=== PATIENT | female | born 1945 | race Caucasian/White ===

== ENCOUNTER 2021-08-15 10:56 | Outpatient (REF) | payer MEDICARE, MEDICAID, SELFPAY ==
--- NOTE | ~2021-08-15 | US_ITS ---
EXAMINATION: US PELVIS CLINICAL INFORMATION: Leiomyoma of uterus COMPARISON: Previous pelvic ultrasound June 2010 TECHNIQUE: Ultrasound of the pelvis is performed using both transabdominal and transvaginal transducers along with Doppler. Transvaginal imaging is performed due to inadequate visualization transabdominally. FINDINGS: The uterus is anteverted and measures 9.4 x 4.3 x 5.5 cm in dimension. There is a 2.2 x 2.1 x 2.2 cm hypoechoic area in the posterior lower uterine segment questionable for a fibroid. The previously identified 1.8 x 1.5 x 1.6 cm lesion in the anterior uterine body on June 2010 exam is not appreciated. The endometrium is abnormally thickened for a postmenopausal patient measuring 1.7 cm. Endometrium appears heterogeneous with multiple small cystic areas. This is similar appearing to June 2010 exam. There are nabothian cysts in the cervix. The ovaries are not seen. There is no fluid in the pelvis. US/US pelvic and transvaginal IMPRESSION: Heterogeneous abnormally thickened endometrium measuring 1.7 cm with multiple small cystic areas. Tissue sampling recommended. 2.2 cm hypoechoic area in the posterior lower uterine segment, question representing a fibroid. The previously identified 1.8 x 1.5 x 1.6 cm fibroid in the anterior body of the uterus on June 2010 exam is not appreciated.
== END 2021-08-15 10:57 | disposition home or self-care (01) ==
LOC: HO.US 10:56
PROVIDERS: Visit Provider Student in an Organized Health Care Education/Training Program
DX: D25.1 Intramural leiomyoma of uterus (principal)
CPT/HCPCS: 76830; 76856

== ENCOUNTER 2021-08-25 13:16 | Outpatient (REF) | payer OTHER, SELFPAY ==
--- NOTE | ~2021-08-25 | MM_ITS ---
EXAMINATION: MM SCREENING DIGITAL BREAST TOMOSYNTHESIS, BILATERAL CLINICAL INFORMATION: Screening. Asymptomatic. The lifetime risk of breast cancer based on the Tyrer-Cuzick Model is 2.3%. COMPARISON: Mammography: 03/17/2015 and studies dating back to 09/28/2009. TECHNIQUE: Digital breast tomosynthesis is performed in both the craniocaudal and mediolateral oblique views along with computer-aided detection (CAD). Synthesized 2D images are generated from the tomosynthesis. Additional right exaggerated craniocaudal view performed. FINDINGS: There are scattered areas of fibroglandular density (ACR BI-RADS breast composition Category b). There is a stable parenchymal pattern of the left breast with no new abnormal dominant mass or suspicious grouping of microcalcifications. Within the left breast on mediolateral oblique projection approximately 12 cm from the nipple there is a region of architectural distortion and asymmetric density. The exaggerated craniocaudal view of the right breast does not demonstrate this to be present however I would like to ensure that any possible mass had not been displaced by compression and I recommend call back for supplementary films about the deep superior aspect of the right breast. Ultrasound could also be considered at the time of further study. MM/MM tomosynthesis screening BI IMPRESSION: Question possible asymmetric density with distortion deep superior aspect of the right breast. ASSESSMENT: BI-RADS 0: Incomplete - Need Additional Imaging Evaluation RECOMMENDATION: 1. Additional views of the right breast. 2. Targeted ultrasound if warranted after review of the additional views. 3. Radiology department staff will contact the patient for additional imaging.
--- NOTE | ~2021-08-25 | MM_ITS ---
EXAMINATION: BONE DENSITOMETRY CLINICAL INDICATION: Menopause. COMPARISON: Baseline BD dated 10/22/2015. TECHNIQUE: Using a alaTest DXA System (software version: 13.1) manufactured by [employer], dual-energy x-ray absorptiometry was performed of the lumbar spine and left hip. The images are of good technical quality. Summary results are attached. FINDINGS: AP SPINE L1-L2 (excluding L3 and L4): The data of L1-L4 has been changed to exclude the L3 and L4 vertebral bodies, because degenerative sclerosis at these levels may cause overestimation of lumbar spine density. Current: BMD 1.096 g/cm2, Z-score 0.1, T-score -0.6, normal, 2.0% increase from baseline (<5% change is not significant). Baseline: BMD 1.075 g/cm2. LEFT FEMUR, NECK: Current: BMD 0.658 g/cm2, Z-score -1.5, T-score -2.7, osteoporosis. Baseline: BMD 0.776 g/cm2. LEFT FEMUR, TOTAL: Current: BMD 0.823 g/cm2, Z-score -0.5, T-score -1.5, osteopenia, 7.2% decrease from baseline (<5% change is not significant). Baseline: BMD 0.887 g/cm2. IDENTIFIED RISK FACTORS: Menopause, low calcium intake. HISTORY OF FRACTURE: None listed. MEDICATIONS: Vitamin D. MM/XR DEXA axial skeleton IMPRESSION: 1. DIAGNOSIS: Osteoporosis based on the lowest T-score value of -2.7 in the femoral neck applying World Health Organization criteria. 2. 10-YEAR FRACTURE RISK PREDICTION, FRAX: Major osteoporotic fracture (clinical spine, forearm, hip or shoulder) 16.8%. Hip fracture 5.6%. 3. Treatment Recommendations: NOF guidelines recommend consideration for treatment in postmenopausal women and men age 50 and older presenting with the following: -A hip or vertebral (clinical or morphometric) fracture. -T-score less than or equal to -2.5 at the femoral neck or spine after appropriate evaluation to exclude secondary causes. -Low bone mass at the hip or spine and a 10-year fracture probability by FRAX of greater than or equal to 3% for hip fracture or greater than or equal to 20% for major osteoporotic fracture based on the [place] adapted WHO algorithm. 4. Other Recommendations: All treatment decisions require clinical judgment and consideration of individual patient factors, including patient preferences, comorbidities, previous drug use, risk factors not captured in the FRAX model (e.g. frailty, falls, vitamin D deficiency, increased bone turnover, interval significant decline in bone density) and possible under or overestimation of fracture risk by FRAX. Additional medical evaluation for secondary cause of low bone mineral density may be appropriate. FUTURE SCAN RECOMMENDATION: People with diagnosed cases of osteoporosis or at high risk for fracture should have regular bone mineral density tests. For patients eligible for Medicare, routine testing is allowed once every 2 years. The testing frequency can be increased to one year for patients who have rapidly progressing disease, those who are receiving or discontinuing medical therapy to restore bone mass, or have additional risk factors.
== END 2021-08-25 13:17 | disposition home or self-care (01) ==
LOC: HO.MAMMO 13:16
PROVIDERS: Visit Provider Student in an Organized Health Care Education/Training Program
DX: Z12.31 Encounter for screening mammogram for malignant neoplasm of breast (principal); Z13.820 Encounter for screening for osteoporosis; M84.478A Pathological fracture, left toe(s), initial encounter for fracture; Z78.0 Asymptomatic menopausal state
CPT/HCPCS: 77063; 77067; 77080

== ENCOUNTER 2021-09-06 14:03 | Outpatient (REF) | payer OTHER, SELFPAY | END 2021-09-06 14:04 | disposition home or self-care (01) | LOC: HO.LAB 14:03 | PROVIDERS: PCP Student in an Organized Health Care Education/Training Program; Visit Provider Obstetrics & Gynecology | DX: R93.5 Abnormal findings on diagnostic imaging of other abdominal regions, including retroperitoneum (principal); D21.9 Benign neoplasm of connective and other soft tissue, unspecified | CPT/HCPCS: 58100; 88305; 99202 ==

== ENCOUNTER 2021-09-09 13:25 | Outpatient (REF) | payer OTHER, SELFPAY ==
--- NOTE | ~2021-09-09 | MM_ITS ---
EXAMINATION: MM DIAGNOSTIC DIGITAL BREAST TOMOSYNTHESIS, RIGHT US DIAGNOSTIC ULTRASOUND BREAST, RIGHT CLINICAL INFORMATION: Question of architectural changes posterior upper right breast on MLO view. COMPARISON: Mammography: 08/25/2021, 03/17/2015 TECHNIQUE: Digital breast tomosynthesis is performed. 2D images are generated from the tomosynthesis. The following views are obtained: Spot MLO, exaggerated CC x2. Ultrasound right breast is targeted to the posterior upper outer breast. Grayscale imaging and color Doppler are performed without and with harmonics. FINDINGS: There are scattered areas of fibroglandular density (ACR BI-RADS breast composition Category b). The additional views demonstrate no persistent asymmetric density and no architectural abnormality. There are 2 small axillary tail nodes similar to remote prior exam 2014. The finding at screening is not present and believed to have represented incomplete compression. Ultrasound demonstrates no cystic or solid mass or architectural abnormality. No focal duct ectasia. Results are discussed with the patient at time of visit. MM/MM tomosynthesis added views R IMPRESSION: -No mammographic evidence of malignancy. -Additional views show no persistent asymmetric density or architectural abnormality. -Unremarkable targeted right breast ultrasound. ASSESSMENT: BI-RADS 1: Negative RECOMMENDATION: Routine annual mammography screening. This patient's information was entered into a reminder system with a target due date for their next mammogram.
== END 2021-09-09 13:26 | disposition home or self-care (01) ==
LOC: HO.MAMMO 13:25
PROVIDERS: PCP Student in an Organized Health Care Education/Training Program; Visit Provider Student in an Organized Health Care Education/Training Program
DX: R92.2 Inconclusive mammogram (principal)
CPT/HCPCS: 76642; 77061; 77065

== ENCOUNTER 2022-02-06 13:51 | Outpatient (REF) | payer OTHER, SELFPAY ==
--- NOTE | ~2022-02-06 | US_ITS ---
EXAMINATION: US PELVIS CLINICAL INFORMATION: Benign neoplasm abdominal endometrium. COMPARISON: Ultrasound pelvis 08/15/2021. TECHNIQUE: Ultrasound of the pelvis is performed using both transabdominal and transvaginal transducers along with Doppler. Transvaginal imaging is performed due to inadequate visualization transabdominally. FINDINGS: UTERUS: The uterus is anteverted, anteflexed and measures 7.8 x 3.8 x 4.5 cm. The double wall endometrial thickness is 2.3 cm and has cystic areas. It has increased in size and very suspicious for underlying endometrial abnormality. The uterus is smooth in contour and has normal myometrial echogenicity. There is a hyperechoic area in the posterior lower uterine segment measuring 1.9 x 1.5 x 1.6 cm. Previously it measured 2.2 x 2.1 x 2.2 cm. Question submucosal fibroid or endocervical polyp. There are several nabothian cysts seen in the cervix. ADNEXA: Both ovaries are not visualized. There is no free fluid in cul-de-sac. US/US pelvic and transvaginal IMPRESSION: 1. Thickened endometrium measuring 2.3 cm with cystic areas. This is suspicious for endometrial abnormality. Recommend HABILITATIVE INTERVENTIONIST consultation and tissue sampling. 2. Hyperechoic lesion in the posterior lower uterine segment measuring 1.9 cm, question submucosal fibroid or endocervical polyp. 3. Several nabothian cysts in the cervix. 4. The ovaries are not seen. 5. There is no free fluid in the cul-de-sac.
== END 2022-02-06 13:52 | disposition home or self-care (01) ==
LOC: HO.US 13:51
PROVIDERS: Visit Provider Obstetrics & Gynecology
DX: D21.9 Benign neoplasm of connective and other soft tissue, unspecified (principal)
CPT/HCPCS: 76830; 76856

== ENCOUNTER → 2022-02-14 13:28 | Outpatient (BNVA) | payer OTHER, SELFPAY | PROVIDERS: PCP Student in an Organized Health Care Education/Training Program; Visit Provider Obstetrics & Gynecology | DX: D21.9 Benign neoplasm of connective and other soft tissue, unspecified (principal) | CPT/HCPCS: 99212 ==

== ENCOUNTER → 2022-05-01 14:37 | Outpatient (BNVA) | payer OTHER, SELFPAY | PROVIDERS: PCP Student in an Organized Health Care Education/Training Program; Visit Provider Nurse Practitioner Family | DX: R06.02 Shortness of breath (principal); Z80.0 Family history of malignant neoplasm of digestive organs; Z12.11 Encounter for screening for malignant neoplasm of colon | CPT/HCPCS: Q3014 ==

== ENCOUNTER 2022-06-27 14:16 | Outpatient (REF) | payer OTHER, SELFPAY ==
--- NOTE | ~2022-06-27 | XR_ITS ---
EXAMINATION: XR CHEST CLINICAL INFORMATION: Obstructive sleep apnea. COMPARISON: None. TECHNIQUE: 2 views of the chest were obtained. FINDINGS: There is no evidence of acute parenchymal disease, pneumothorax, or pleural effusion. Heart normal size. No evidence of pulmonary edema. There is unfolding of the thoracic aorta. There is mild elevation at the anterior aspect of the right hemidiaphragm. XR/XR chest 2V IMPRESSION: No acute disease.
== END 2022-06-27 14:17 | disposition home or self-care (01) ==
LOC: HO.XRAY 14:16
PROVIDERS: PCP Student in an Organized Health Care Education/Training Program; Visit Provider Internal Medicine
DX: E66.9 Obesity, unspecified (principal); G47.33 Obstructive sleep apnea (adult) (pediatric); R06.09 Other forms of dyspnea; R06.83 Snoring; E11.9 Type 2 diabetes mellitus without complications; E78.5 Hyperlipidemia, unspecified; R40.0 Somnolence; Z79.899 Other long term (current) drug therapy; Z79.4 Long term (current) use of insulin
CPT/HCPCS: 71046; 99202

== ENCOUNTER 2022-06-27 15:24 | Outpatient (REF) | payer OTHER, SELFPAY | END 2022-06-27 15:25 | disposition home or self-care (01) | LOC: HO.RESP 15:24 | PROVIDERS: Visit Provider Internal Medicine | DX: Z13.89 Encounter for screening for other disorder (principal) ==

== ENCOUNTER → 2022-07-11 14:51 | Outpatient (REF) | payer OTHER, SELFPAY ==
--- NOTE | 2022-07-11 16:05 | PFT_ITS ---
INDICATION: Dyspnea. SPIROMETRY: FEV1 to FVC of 88% with an FEV1 of 1.82 L, which is 100% predicted and FVC of 2.08 L, which is 85% predicted. No significant response to bronchodilator is noted, although there is trend of the FEV1 by 11%. Maximum voluntary ventilation is 81% predicted. LUNG VOLUMES: Total lung capacity 67% predicted with an expiratory reserve volume of 34% predicted. DIFFUSION CAPACITY: DLCO 63% predicted, it does correct to 97% when corrected for the alveolar volume. COMPARISONS: None. INTERPRETATION: No obstructive ventilatory defects. There is a trend response to bronchodilators noted. Low normal maximum voluntary ventilation likely secondary to deconditioning. Lung volumes do demonstrate a restrictive ventilatory defect consistent with mild to moderate restrictive lung disease. In part, this could be secondary to an elevated BMI, although interstitial lung conditions and/or neuromuscular conditions cannot be ruled out. The patient does have a mild diffusion impairment. It does correct to normal when corrected for the alveolar volume. Clinical correlation warranted. Owen Mina MD MR/MODL / [id number]
== END ==
LOC: HO.SL 14:51
PROVIDERS: PCP Student in an Organized Health Care Education/Training Program; Visit Provider Internal Medicine
DX: G47.33 Obstructive sleep apnea (adult) (pediatric) (principal); R06.09 Other forms of dyspnea; E66.9 Obesity, unspecified; R06.83 Snoring; R40.0 Somnolence
CPT/HCPCS: 94060; 94727; 94729

== ENCOUNTER → 2022-07-17 12:46 | Outpatient (BNVA) | payer OTHER, SELFPAY | PROVIDERS: PCP Student in an Organized Health Care Education/Training Program; Referring Provider Student in an Organized Health Care Education/Training Program; Visit Provider Internal Medicine Cardiovascular Disease | DX: Z01.810 Encounter for preprocedural cardiovascular examination (principal); R06.09 Other forms of dyspnea | CPT/HCPCS: 93005; 99202 ==

== ENCOUNTER → 2022-08-15 14:42 | Outpatient (BNVA) | payer OTHER, SELFPAY | PROVIDERS: PCP Student in an Organized Health Care Education/Training Program; Visit Provider Internal Medicine | DX: G47.33 Obstructive sleep apnea (adult) (pediatric) (principal); R06.09 Other forms of dyspnea; R06.83 Snoring; R40.0 Somnolence; J98.4 Other disorders of lung; E66.9 Obesity, unspecified | CPT/HCPCS: 99212 ==

== ENCOUNTER → 2022-08-22 14:46 | Outpatient (REF) | payer OTHER, SELFPAY | LOC: HO.SL 14:46 | PROVIDERS: PCP Student in an Organized Health Care Education/Training Program; Visit Provider Internal Medicine | DX: Z13.89 Encounter for screening for other disorder (principal) ==

== ENCOUNTER → 2022-09-21 13:54 | Outpatient (REF) | payer OTHER, SELFPAY | LOC: HO.SL 13:54 | PROVIDERS: PCP Student in an Organized Health Care Education/Training Program; Visit Provider Internal Medicine | DX: Z13.89 Encounter for screening for other disorder (principal) ==

== ENCOUNTER → 2022-10-31 09:03 | Outpatient (REF) | payer OTHER, SELFPAY ==
--- NOTE | ~2022-10-31 | NM_ITS ---
Lexiscan Myocardial perfusion study Indication: Shortness of breath, preoperative evaluation, assess for ischemia Technique: The patient was brought in for a Lexiscan perfusion study on 10/31/2022 and was injected 0.4 mg of Lexiscan intravenously. Within a minute of this injection 30 mCi of sestamibi was given intravenously. Images were obtained using the SPECT gamma camera interlaced with the gating device. Images were obtained in supine position. Resting perfusion study was performed on 11/01/2022. Patient was administered 30 mCi of sestamibi intravenously at rest. Images were then obtained in supine position. Images were processed with the software and compared side to side in short axis, horizontal long axis and vertical long axis views. Total DLP 116mGy-cm. Findings: Raw acquisition reviewed. The stress perfusion study showed no significant perfusion defects. Both uncorrected as well as CT attenuation corrected images were reviewed. The gated study shows diminished LV systolic function with calculated LVEF of 48%. However, visually LVEF seems much higher LV cavity is normal in size. The gated study shows normal wall thickening and contraction of segments. Resting study shows no significant perfusion abnormality. Gating at rest reveals normal wall motion with ejection fraction at 33%. Visually, appears higher. The findings are consistent with no clear evidence of any ischemia or infarction. NM/NM cardiolite stress test Impression: 1. Myocardial perfusion imaging study shows normal myocardial perfusion. 2. Gated LVEF is 48% during stress and 33% during rest but visually appears normal. Correlate with echocardiogram. 3. Transient ischemic dilatation not present. EKG component of the test reported separately.
--- NOTE | 2022-10-31 09:07 | CA_ITS ---
Acquisition Time: 2022-10-31 10:12:11 Total Exercise Time: 00:02:00 Test Indications: Dyspnea Medications: SEE H Protocol: LEXISCAN Max HR: 083 BPM 58% of Pred: 143 BPM Max BP: 126/076 mmHG Max Work Load: 1.0 METS Pharmacoloigcal stress test with Lexiscan injection while sitting and kicking her legs, without anignal symptoms, without arrhythmias, with normotensive response to injection, with non-diagnostic EKGs. Nuclear images pending. Test reviewed with Dr. Anne. Referred By: Vijaya Perez Overread By: RIOS ANNE
--- NOTE | 2022-10-31 09:07 | CA_ITS ---
Transthoracic Echocardiogram Patient (Last, First, Middle): Yuliet Underwood, Gender: Female Date of : 1945 Age: 77 Procedure Date: 10/31/2022 Procedure Type: Transthoracic Echocardiogram Location: OP Height: 157.48 cm Weight: 92.99 kg BSA: 1.93 m2 Heart Rate: bpm BP: 118 / 70 mmHg Configuration Management Manager: TO Referring MD: Vijaya Perez NP-Alejandro Bullet Maker: Milan Hoffmann MD Symptoms: R06.09 - Other forms of dyspnea Study Quality: Fair ECG Rhythm: Sinus Conclusions: - 1. Normal LV ejection fraction 65-70% with grade 1 diastolic dysfunction 2. Normal cardiac valvular Doppler 3. No gross pericardial effusion Findings Left Ventricle Normal left ventricular size, thickness, and systolic function. The visually estimated ejection fraction is between 65-70%. Regional wall motion abnormalities can not be excluded due to suboptimal endocardial definition. Spectral Doppler is indicative of an impaired relaxation filling pattern. E/E prime ratio is <8, consistent with normal filling pressures. Evidence suggests grade I (mild) diastolic dysfunction. There is moderate septal asymmetric hypertrophy. Right Ventricle Normal right ventricular cavity size and systolic function. Atria The left atrium is normal in size. Interatrial shunt cannot be excluded. The right atrium is normal in size. Aortic Valve The aortic valve structure and function is likely normal. There is no aortic valve stenosis. There is no aortic valve regurgitation. Mitral Valve There is mild anterior and posterior mitral leaflet thickening. There is mild mitral annular calcification. There is trace mitral valve regurgitation. There is no mitral valve stenosis. Tricuspid Valve Likely normal tricuspid valve structure and function. There is trace tricuspid valve regurgitation. Tricuspid regurgitation envelope is inadequate for calculation of right ventricular systolic pressure. Normal right atrial pressure. Great Vessels All visible segments of the aorta are normal in size. The pulmonary artery was not well visualized. Venous The inferior vena cava is normal in size and collapses greater than 50% with inspiration. Pericardium/Pleural There is no evidence of pericardial effusion. Prior Study Comparison No prior study available for comparison. Measurements 2D Linear Measurements IVSd: 1.57 0.6-0.9/0.6-1.0 cm LVIDd: 3.42 3.9-5.3/4.2-5.9 cm LVIDd Index: 1.77 2.4-3.2/2.2-3.1 cm/m2 LVIDs: 2.31 2.0-3.6 cm LVPWd: 0.91 0.7-1.1 cm LA Diam: 3.50 2.7-3.8/3.0-4.0 cm LAIDs Index: 1.81 1.5-2.3 cm/m2 LV Mass: 171.99 67-162/88-224 g LV Mass Index: 89.12 43-95/49-115 g/m2 LVOT Diam: 2.00 3.0+(-)1.3 cm 2D Systolic Function EF 4C: 64.60 >55% EF 2C: 69.30 >55% EF BiP: 66.70 >55% Mitral Valve MV VTI: 0.29 MV Pk Karel: 1.21 MV Mn Karel: 0.60 MV Pk Grad: 6.00 MV Mn Grad: 2.00 MV Pk E: 0.52 MV PK A: 1.09 MV Decel Time: 354.00 E/A: 0.50 E'Lateral: 4.35 E'Medial: 5.22 E/E' Med: 10.00 E/E' Lat: 12.00 PHT: 104.00 MVA PHT: 2.12 MVA Continuity: 2.13 Decel [place]: 1.48 Aortic Valve AoV Pk Karel: 1.23 AoV Mn Karel: 0.88 AoV VTI: 0.26 AoV Pk Grad: 6.00 Aov Mn Grad: 3.00 SOFIE Cont.VTI: 2.38 LVOT LVOT Pk Karel: 0.73 LVOT Mn Karel: 0.48 LVOT VTI: 0.20 LVOT Pk Grad: 2.00 LVOT Mn Grad: 1.00 LVOT Diam: 2.00 LVOT Area: 3.14 Diastolic Function MV Pk E: 0.52 MV Pk A: 1.09 E/A: 0.50 E'Medial: 5.22 E/E' Med: 10.00 E' Laterial: 4.35 E/E' Lat: 12.00 Right Ventricle TAPSE (mm): 18.60 TVS' Karel: 9.41 Tricuspid Valve RA Press: 3.00 Great Vessels Aorta Sinus of Valsalva: 3.14 2.0-3.5 cm Ao Asc: 3.20 2.1-3.4 cm Updated in Other Vendor System with Status of Final Milan Hoffmann MD electronically signed on 11/01/2022 10:40:29 AM with status of Final
== END ==
LOC: HO.CARD 09:03
PROVIDERS: PCP Student in an Organized Health Care Education/Training Program; Visit Provider Nurse Practitioner Family
DX: R06.09 Other forms of dyspnea (principal); E66.9 Obesity, unspecified
CPT/HCPCS: 78452; 93017; 93306; A9500; J0280; J2785

== ENCOUNTER → 2022-10-31 09:07 | Outpatient (BNV) | payer OTHER, SELFPAY | PROVIDERS: PCP Student in an Organized Health Care Education/Training Program; Visit Provider Internal Medicine | DX: R06.00 Dyspnea, unspecified (principal) | CPT/HCPCS: 78452; 93016; 93018; 93306 ==

== ENCOUNTER 2022-11-13 14:09 | Outpatient (AMB) | payer OTHER, SELFPAY ==
--- NOTE | 2022-11-13 14:21 | MHC.OFFVIS ---
Intake Vital Signs 11/13/22 14:22 Height 5 ft 1 in Weight 201 lb 15.095 oz BMI 38.2 BP 133/64 Blood Pressure Location Lt brachial Position Sitting Pulse 80 Intake Visit Reasons: S/P [place]; Dr Ceron Intake Note: Yuliet presents in office as a est.patient for a post-op for colo pt's colo got cancelled PT CC:pt reports having no concerns r/s pt denies any other GI Issues Greenhouse Grower Required: No Accompanied by: Self / Same As Patient Allergies Spjqdvg-XMI-GxX Reductase Inhibitor [[id number] REDUCTASE INHIBITOR] Allergy (Severe, Verified 11/13/22 14:23) SEVERE DIARRHEA HPI S/P [place]; Dr Ceron HPI Details LAST VISIT Screening for colon cancer Patient denies any GI, cardiac or respiratory symptoms.? Denies any issues with anesthesia in the past.? Denies any history of sleep apnea.? No history infectious diseases in the past or present.? Patient is on low-dose aspirin.? Patient has a family history history of colorectal cancer. Patient's mom was diagnosed with colorectal cancer year before she . Patient's brother was diagnosed with colorectal cancer 2 years ago tumor was removed and he had a resection.? Patient denies melena, hematochezia, unintentional weight loss or ribbon like stools.? Patient reports her does have with and without exertion. Will send her to tube former operator and entry level marketing representative for risk stratification. Patient states that her symptoms are worse send in the last year or so. Also complains of bilateral lower extremity edema towards the end of the day. 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 Discussed at length the pre-procedure,? prep, diet & medications as well as what to expect prior, during and after the procedure.?? Stressed the importance of good bowel prep. ?Recommended the use of Vaseline or Calmoseptine OTC & baby wipes with bowel movements to promote comfort.? ?Patient verbalizes understanding and agrees to plan of care.? She was given the opportunity to ask questions and all questions answered.? We will see her after the procedure.? SOBOE (shortness of breath on exertion) Plan Orders Referrals Pulmonary Medicine Referral R06.02 Cardiology Referral Z01.810 Medications New bisacodyl (Dulcolax (bisacodyl)) take 2 tabs at noon the day before your colonoscopy 10 mg (2 x 5 mg) PO ONCE 1 day 2 tabs 0RF Z12.11 polyethylene glycol 3350 (Miralax) As directed by gastroenterology department at [facility] 238 grams PO ONCE 238 grams 0RF Z12. TODAY'S VISIT: Patient reports that her colonoscopy was canceled as she was not cleared by her tube former operator. Official appointment after stress test and echo is in November of this, however patient was told that her test came back normal. Patient seen entry level marketing representative as well and pulmonary function test came back okay. Patient is waiting to undergo sleep apnea study. Patient reports to be feeling well, denies any GI concerning symptoms. Moving her bowels well without any issues. Denies any dyspepsia, dysphagia or odynophagia. Patient denies melena, hematochezia, unintentional weight loss or ribbon like stools. [facility] Medical History Dyspnea on exertion Obesity (BMI 35.0-39.9 without comorbidity) VIRI (obstructive sleep apnea) Restrictive lung disease Snoring Somnolence, daytime Surgical History H/O: knee surgery History of dilatation and curettage Family History Mother Colon cancer Diabetes Heart disease Brother Colon cancer Father Angina at rest Social History Patient Tobacco Use Status: Never used Tobacco Review of Systems Const Denies weight gain and Denies weight loss ENT Reports no additional complaints, Denies dysphagia and Denies odynophagia Card Reports no additional complaints Resp Reports no additional complaints GI Denies abdominal pain, Denies belching, Denies melena, Denies bloating, Denies change in bowel habits, Denies dysphagia, Denies excessive flatus, Denies dyspepsia, Denies heartburn, Denies diarrhea, Denies loose stools, Denies nausea, Denies odynophagia and Denies vomiting Musc Reports no additional complaints Neuro Reports no additional complaints Psych Reports no additional complaints Endo Reports no additional complaints Physical Exam Vital Signs: Last Vital Signs Pulse 80 11/13/22 14:22 BP 133/64 11/13/22 14:22 BMI result Body Mass Index 38.2 Const General: healthy appearing, no acute distress and well developed Nutritional Appearance: well nourished and obese Orientation/consciousness: patient oriented x3 HEENT Head: Yes normal to inspection, Yes normocephalic and Yes atraumatic Face and sinus: Yes normal facial exam Mouth: Normal oral and palatal mucosa present Throat: Yes posterior oropharynx normal, Yes tonsils normal and Yes uvula midline Eyes General: appearance normal, both eyes and all related structures Neck Neck: Yes normal visual inspection, Yes full ROM and Yes trachea midline Thyroid: Thyroid normal Resp Effort & Inspection: normal respiratory effort, able to speak in complete sentences, no tracheal deviation and symmetric chest movement Auscultation: clear to auscultation bilaterally Cardio Rate: regular rate Heart sounds: S1 normal heart sound present and S2 normal heart sound present GI Inspection: Yes normal to inspection, No distended and Yes obesity Palpation (GI): Soft to palpation, not firm, nontender and No hepatosplenomegaly present Auscultation: normal bowel sounds General: Yes no CVA tenderness Back/Spine/Pelvis Back: no CVA tenderness Skin General skin exam: elasticity normal, turgor normal and dry skin Neuro General: patient oriented x3 Psych Appearance: grossly normal Mental Status: mental status grossly normal Speech and movement: Normal speech and movement present Affect: normal affect Assessment & Plan Assessment & Plan (1) Screening for colon cancer: Code(s): Z12.11 - Encounter for screening for malignant neoplasm of colon Plan: Patient had stress test and echo and was told that everything was okay, official appointment will be in November and patient will be cleared then. We will schedule colonoscopy today. Patient can be scheduled in December after appointment with tube former operator. Went over the prep again with the patient and clear liquid diet. I will see patient after the procedure, sooner on as needed basis. Patient is agreeable to this plan and verbalizes understanding of instructions. She was given the opportunity to ask questions and all questions answered. Thank you for allowing me to participate in her care Coding Level of Care Code Est Pt Level 3 (49304) Diagnoses Screening for colon cancer Z12.11 Time Spent (min) 30 Comment 20 minutes spent with patient and additional 10 minutes spent reviewing her records
[2022-11-13 14:22] VITALS: BP 133/64; PULSE 80; BMI 38.2
== END 2022-11-13 14:55 | disposition home or self-care (01) ==
PROVIDERS: PCP Student in an Organized Health Care Education/Training Program; Visit Provider Nurse Practitioner Family
DX: Z01.818 Encounter for other preprocedural examination (principal); Z12.11 Encounter for screening for malignant neoplasm of colon
CPT/HCPCS: 99213

== ENCOUNTER → 2022-11-13 14:09 | Outpatient (BNVA) | payer OTHER, SELFPAY | PROVIDERS: PCP Student in an Organized Health Care Education/Training Program; Visit Provider Nurse Practitioner Family | DX: Z12.11 Encounter for screening for malignant neoplasm of colon (principal) | CPT/HCPCS: 99212 ==

== ENCOUNTER 2022-11-27 13:13 | Outpatient (AMB) | payer OTHER, SELFPAY ==
[2022-11-27 13:17] VITALS: BP 120/70; PULSE 103; O2SAT 93; BMI 38.0
--- NOTE | 2022-11-27 13:17 | A.OFFVIS_ITS ---
Intake Vital Signs 11/27/22 13:17 Height 5 ft 1 in Weight 201 lb BMI 38.0 BP 120/70 Blood Pressure Location Lt brachial Position Sitting Pulse 103 H Pulse Source Pulse Oximeter Pulse Oximetry (%) 93 Oxygen Delivery Method Room Air Intake Visit Reasons: benita Intake Note: pt is here for follow up and states ,she missed her appointment for her sleep st ud[facility] and needs to reschedule. The only problem is post nasal drip that hangs in her throat area. Lumber Straightened Required: No Allergies Hvlobbg-FCR-PyZ Reductase Inhibitor [APXENPV-HKI-TDH REDUCTASE INHIBITOR] Allergy (Severe, Verified 11/27/22 13:43) SEVERE DIARRHEA Medication List - Last Reconciled 11/27/22 by Goldy Wiley MD aspirin 81 mg PO QPM cholecalciferol (vitamin D3) 50 mcg PO QPM gemfibrozil 600 mg PO glipizide 20 mg PO insulin glargine (Lantus Solostar U-100 Insulin) 35 units subcut BEDTIME lisinopril 10 mg PO QPM loratadine 10 mg PO QPM metformin 1,000 mg PO omega-3 acid ethyl esters 1 cap PO rosuvastatin 10 mg PO QPM sertraline 25 mg PO QAM triamterene-hydrochlorothiazid 37.5-25 mg 1 cap PO QAM Do you need a note to return to daycare/school/sports/work: No HPI bneita HPI Details This 77 years old very pleasant female with gross obesity, round face, and definite physical features suggestive of sleep apnea. Comes for follow-up. In the meantime she was supposed to have a sleep study in the sleep lab, because her prior home-based study x2, were invalid, showing no sleep apnea but some nocturnal hypoxemia. She was supposed to have a lab based sleep study which she missed . Claims that she sleeps well and she is not aware of snoring because the rim no body else in the room. Denies any daytime sleepiness She tries to sleep in lateral position. Patient denies cough wheezing or any respiratory problem except for dyspnea on moderate exertion. [facility] Medical History Dyspnea on exertion Obesity (BMI 35.0-39.9 without comorbidity) BENITA (obstructive sleep apnea) Restrictive lung disease Snoring Somnolence, daytime Surgical History H/O: knee surgery History of dilatation and curettage Family History Mother Colon cancer Diabetes Heart disease Brother Colon cancer Father Angina at rest Social History Patient Tobacco Use Status: Never used Tobacco Review of Systems Const All systems reviewed & are unremarkable except as noted in HPI and below Eyes Reports no additional complaints ENT Reports no additional complaints Card Denies chest pain, Denies irregular heart rhythm and Denies lightheadedness Resp Reports as per HPI GI Reports constipation Reports no additional complaints Musc Reports no additional complaints Skin/Breast Reports system reviewed and no additional complaints, except as documented Neuro Reports no additional complaints Psych Reports depression (Mild being treated with sertraline) Endo Reports no additional complaints Robe/Lymph Reports no additional complaints Physical Exam Vital Signs: Last Vital Signs Pulse 103 H 11/27/22 13:17 BP 120/70 11/27/22 13:17 Pulse Ox 93 11/27/22 13:17 Oxygen Delivery Method Room Air 11/27/22 13:17 BMI result Body Mass Index 38.0 Patient is of a short stature and grossly obese with a round face and short neck. Const General: healthy appearing (Except for being overweight), comfortable, no acute distress, alert and awake Orientation/consciousness: patient oriented x3 HEENT Head: Yes normal to inspection General nose exam: No nasal polyps present and No nasal discharge present Face and sinus: Yes sinuses nontender Mouth: oropharynx abnormals (Tongue is placed back and oropharynx is very crowded, Mallampati class 4.) Throat: Yes posterior oropharynx normal Eyes General: appearance normal, both eyes and all related structures Neck Neck: Yes normal visual inspection, Yes no lymphadenopathy, Yes trachea midline, Yes no JVD and Yes other (Neck size 17 in. Neck is quite short.) Thyroid: Thyroid normal Chest Chest palpation & inspection: normal inspection of the chest, normal palpation of entire chest wall and No Pacemaker present Resp Other: Percussion note resonant. Breath sounds are decreased over the basilar areas. No wheezes rhonchi or crepitations are heard. Cardio Palpation: normal PMI Rate: regular rate Rhythm: regular rhythm Heart sounds: no gallops and no murmurs Peripheral pulses: Peripheral pulses 2+ throughout GI Palpation (GI): Soft to palpation, nontender, No hepatosplenomegaly present, no masses and Other GI palpation findings present (Abdomen is obese and protuberant) Auscultation: normal bowel sounds Back/Spine/Pelvis Thoracic/Lumbar Spine: thoracic and lumbar spine normal to inspection Skin General skin exam: no rashes or lesions noted Neuro General: patient oriented x3 and no focal motor deficits Cranial nerves: Yes CN's II-XII intact bilaterally Extrem General: Yes normal to inspection, Yes no clubbing, cyanosis or edema and Yes no calf tenderness Psych Appearance: grossly normal and well kempt Speech and movement: Normal speech and movement present Assessment & Plan Assessment & Plan (1) Obesity (BMI 35.0-39.9 without comorbidity): Comment: She is grossly obese with a round face. Her physical features are typical of a person with BENITA. Attempted home-based sleep studyx2 but the data was invalid . Needs to have a sleep study in the sleep lab. She had missed did it once, will reschedule. Discussed about her weight issue. She is watching her diet on her own and trying to lose weight Code(s): E66.9 - Obesity, unspecified (2) BENITA (obstructive sleep apnea): Comment: History of snoring and waking up at night a few times, with some daytime sleepiness, and physical features are all pointing to obstructive sleep apnea. Home-based sleep studyx2 not valid. So she should have a study in the sleep lab . She missed ,and being re-scheduled . Code(s): G47.33 - Obstructive sleep apnea (adult) (pediatric) (3) Dyspnea on exertion: Comment: Dyspnea on exertion is probably due to restrictive pulmonary disorder, which in turn is due to abdominal obesity. I do not think she has any obstructive component. Pulmonary function test confirms presence of mild to moderate restrictive pulmonary disorder. Patient has been advised to do deep breathing exercises 3 times a day. Code(s): R06.09 - Other forms of dyspnea (4) Restrictive lung disease: Comment: Pulmonary function test shows moderate degree of restrictive pulmonary disorder. FVC= 67 % DLCO 63 % NO OBSTRUCTIVE AIRWAY DISORDER. This is due to her gross obesity. Explained thoroughly about her restrictive disorder( small lungs) TX: Weight reduction, explained, Deep breathing exercises explained. Code(s): J98.4 - Other disorders of lung Orders: Orders RT PSG in-lab sleep study Today E66.9 - Obesity, unspecified, G47.33 - Obstructive sleep apnea (adult) (pediatric), R06.83 - Snoring, R40.0 - Somnolence Coding Level of Care Code Est Pt Level 4 (87187) Diagnoses Obesity (BMI 35.0-39.9 without comorbidity) E66.9 BENITA (obstructive sleep apnea) G47.33 Dyspnea on exertion R06.09 Restrictive lung disease J98.4
== END 2022-11-27 13:43 | disposition home or self-care (01) ==
PROVIDERS: PCP Student in an Organized Health Care Education/Training Program; Visit Provider Internal Medicine
DX: E66.9 Obesity, unspecified (principal); G47.33 Obstructive sleep apnea (adult) (pediatric); R06.09 Other forms of dyspnea; J98.4 Other disorders of lung
CPT/HCPCS: 99214

== ENCOUNTER → 2022-11-27 13:13 | Outpatient (BNVA) | payer OTHER, SELFPAY | PROVIDERS: PCP Student in an Organized Health Care Education/Training Program; Visit Provider Internal Medicine | DX: G47.33 Obstructive sleep apnea (adult) (pediatric) (principal); R06.09 Other forms of dyspnea; J98.4 Other disorders of lung; E66.9 Obesity, unspecified; Z68.38 Body mass index [BMI] 38.0-38.9, adult | CPT/HCPCS: 99212 ==

== ENCOUNTER → 2022-12-12 20:30 | Outpatient (REF) | payer OTHER, SELFPAY | LOC: HO.SL 20:30 | PROVIDERS: PCP Student in an Organized Health Care Education/Training Program; Visit Provider Internal Medicine | DX: R06.83 Snoring (principal); G47.33 Obstructive sleep apnea (adult) (pediatric); E66.9 Obesity, unspecified; R40.0 Somnolence | CPT/HCPCS: 95810 ==

== ENCOUNTER → 2022-12-13 20:30 | Outpatient (BNV) | payer OTHER, SELFPAY | PROVIDERS: PCP Student in an Organized Health Care Education/Training Program; Visit Provider Internal Medicine | DX: G47.33 Obstructive sleep apnea (adult) (pediatric) (principal) | CPT/HCPCS: 95810 ==

== ENCOUNTER 2022-12-20 14:00 | Outpatient (AMB) | payer OTHER, SELFPAY ==
[2022-12-20 14:07] VITALS: BP 122/72; PULSE 79; O2SAT 95; BMI 38.0
--- NOTE | 2022-12-20 14:07 | A.OFFVIS_ITS ---
Intake Vital Signs 12/20/22 14:07 Height 5 ft 1 in Weight 201 lb BMI 38.0 BP 122/72 Blood Pressure Location Lt brachial Position Sitting Pulse 79 Pulse Source Pulse Oximeter Pulse Oximetry (%) 95 Oxygen Delivery Method Room Air Intake Visit Reasons: Obstructive sleep apnea Intake Note: pt is here for follow up of sleep study. She drinks water all night long, will this be an issue with c-pap, please explain how to do this when wearing cpap. Cigar Packer And Grader Required: No Allergies Wlskgot-BPX-ScL Reductase Inhibitor [WGWKOIQ-SZZ-NSA REDUCTASE INHIBITOR] Allergy (Severe, Verified 12/20/22 15:57) SEVERE DIARRHEA Medication List - Last Reconciled 12/20/22 by Goldy Wiley MD aspirin 81 mg PO QPM cholecalciferol (vitamin D3) 50 mcg PO QPM gemfibrozil 600 mg PO glipizide 20 mg PO insulin glargine (Lantus Solostar U-100 Insulin) 35 units subcut BEDTIME lisinopril 10 mg PO QPM loratadine 10 mg PO QPM metformin 1,000 mg PO omega-3 acid ethyl esters 1 cap PO rosuvastatin 10 mg PO QPM sertraline 25 mg PO QAM triamterene-hydrochlorothiazid 37.5-25 mg 1 cap PO QAM Do you need a note to return to daycare/school/sports/work: No HPI Obstructive sleep apnea HPI Details THIS 77 YEARS OLD VERY PLEASANT FEMALE IS GROSSLY OBESE, WITH A ROUND FACE NARROW OROPHARYNX, AND PREDOMINANTLY ABDOMINAL OBESITY. SHE HAS DIFFICULTY IN SLEEPING DUE TO WAKING UP QUITE FREQUENTLY. SHE HAS HAD DAYTIME SLEEPINESS. SHE UNDERWENT IT POLYSOMNOGRAM STUDY ON 12/12/22 . IT WAS A SPLIT NIGHT STUDY BE CAUSE SHE WAS FOUND TO HAVE MODERATELY SEVERE OBSTRUCTIVE SLEEP APNEA ALONG WITH HYPOXEMIA ON THE BASELINE PART OF THE STUDY. SHE UNDERWENT CPAP TITRATION UP TO 11 CM. WILD THE OBSTRUCTIVE EVENTS WERE ELIMINATED SHE STILL CONTINUE TO BE HYPOXEMIC, AND REQUIRED O2 1 L/MINUTE ALONG WITH THE CPAP. PATIENT COMES HERE TODAY FOR GOING OVER THE RESULTS OF SLEEP STUDY AND TO BE STARTED ON CPAP THERAPY. [facility] Medical History Dyspnea on exertion Obesity (BMI 35.0-39.9 without comorbidity) VIRI (obstructive sleep apnea) Restrictive lung disease Snoring Somnolence, daytime Surgical History H/O: knee surgery History of dilatation and curettage Family History Mother Colon cancer Diabetes Heart disease Brother Colon cancer Father Angina at rest Social History Patient Tobacco Use Status: Never used Tobacco Review of Systems Const All systems reviewed & are unremarkable except as noted in HPI and below Eyes Reports no additional complaints ENT Reports no additional complaints Card Denies chest pain, Denies irregular heart rhythm and Denies lightheadedness Resp Reports as per HPI GI Reports constipation Reports no additional complaints Musc Reports no additional complaints Skin/Breast Reports system reviewed and no additional complaints, except as documented Neuro Reports no additional complaints Psych Reports depression (Mild being treated with sertraline) Endo Reports no additional complaints Robe/Lymph Reports no additional complaints Physical Exam Vital Signs: Last Vital Signs Pulse 79 12/20/22 14:07 BP 122/72 12/20/22 14:07 Pulse Ox 95 12/20/22 14:07 Oxygen Delivery Method Room Air 12/20/22 14:07 BMI result Body Mass Index 38.0 Patient is of a short stature and grossly obese with a round face and short neck. Const General: healthy appearing (Except for being overweight), comfortable, no acute distress, alert and awake Orientation/consciousness: patient oriented x3 HEENT Head: Yes normal to inspection General nose exam: No nasal polyps present and No nasal discharge present Face and sinus: Yes sinuses nontender Mouth: oropharynx abnormals (Tongue is placed back and oropharynx is very crowded, Mallampati class 4.) Throat: Yes posterior oropharynx normal Eyes General: appearance normal, both eyes and all related structures Neck Neck: Yes normal visual inspection, Yes no lymphadenopathy, Yes trachea midline, Yes no JVD and Yes other (Neck size 17 in. Neck is quite short.) Thyroid: Thyroid normal Chest Chest palpation & inspection: normal inspection of the chest, normal palpation of entire chest wall and No Pacemaker present Resp Other: Percussion note resonant. Breath sounds are decreased over the basilar areas. No wheezes rhonchi or crepitations are heard. Cardio Palpation: normal PMI Rate: regular rate Rhythm: regular rhythm Heart sounds: no gallops and no murmurs Peripheral pulses: Peripheral pulses 2+ throughout GI Palpation (GI): Soft to palpation, nontender, No hepatosplenomegaly present, no masses and Other GI palpation findings present (Abdomen is obese and protuberant) Auscultation: normal bowel sounds Back/Spine/Pelvis Thoracic/Lumbar Spine: thoracic and lumbar spine normal to inspection Skin General skin exam: no rashes or lesions noted Neuro General: patient oriented x3 and no focal motor deficits Cranial nerves: Yes CN's II-XII intact bilaterally Extrem General: Yes normal to inspection, Yes no clubbing, cyanosis or edema and Yes no calf tenderness Psych Appearance: grossly normal and well kempt Speech and movement: Normal speech and movement present Results Reviewed Results Reviewed: THE RESULTS OF POLYSOMNOGRAM STUDY ARE EXPLAINED TO HER SHE DID HAVE MODERATELY SEVERE OBSTRUCTIVE SLEEP APNEA TREATED WITH THE CPAP APPLICATION. AND IN ADDITION NEEDED OF SUPPLEMENTAL OXYGEN AT 1 L/MINUTE. Assessment & Plan Assessment & Plan (1) Obesity (BMI 35.0-39.9 without comorbidity): Comment: She is grossly obese with a round face. Her physical features are typical of a person with VIRI. Now she has had sleep lab based polysomnogram study with CPAP titration. Code(s): E66.9 - Obesity, unspecified (2) VIRI (obstructive sleep apnea): Comment: History of snoring and waking up at night a few times, with some daytime sleepiness, and physical features are all pointing to obstructive sleep apnea. Home-based sleep studyx2 not valid. Now status post polysomnogram study in the sleep lab, Moderately severe here obstructive sleep apnea, treated with CPAP of 11 cm, plus oxygen supplement at 1 L/minute. * I have explained the finding to the patient and advised her to go on the CPAP therapy plus oxygen. She is agreeable. Will send the CPAP orders to the DME supplier. Patient will be seen back after 6 weeks for follow-up Code(s): G47.33 - Obstructive sleep apnea (adult) (pediatric) (3) Restrictive lung disease: Comment: Pulmonary function test shows moderate degree of restrictive pulmonary disorder. FVC= 67 % DLCO 63 % NO OBSTRUCTIVE AIRWAY DISORDER. This is due to her gross obesity. Explained thoroughly about her restrictive disorder( small lungs) TX: Weight reduction, explained, Deep breathing exercises explained. Code(s): J98.4 - Other disorders of lung (4) Dyspnea on exertion: Comment: Dyspnea on exertion is probably due to restrictive pulmonary disorder, which in turn is due to abdominal obesity. I do not think she has any obstructive component. Pulmonary function test confirms presence of mild to moderate restrictive pulmonary disorder. Patient has been advised to do deep breathing exercises 3 times a day. Code(s): R06.09 - Other forms of dyspnea Coding Level of Care Code Est Pt Level 4 (50606) Diagnoses Obesity (BMI 35.0-39.9 without comorbidity) E66.9 VIRI (obstructive sleep apnea) G47.33 Restrictive lung disease J98.4 Dyspnea on exertion R06.09
== END 2022-12-20 14:33 | disposition home or self-care (01) ==
PROVIDERS: PCP Student in an Organized Health Care Education/Training Program; Visit Provider Internal Medicine
DX: E66.9 Obesity, unspecified (principal); G47.33 Obstructive sleep apnea (adult) (pediatric); J98.4 Other disorders of lung; R06.09 Other forms of dyspnea
CPT/HCPCS: 99214

== ENCOUNTER → 2022-12-20 14:00 | Outpatient (BNVA) | payer OTHER, SELFPAY | PROVIDERS: PCP Student in an Organized Health Care Education/Training Program; Visit Provider Internal Medicine | DX: G47.33 Obstructive sleep apnea (adult) (pediatric) (principal); J98.4 Other disorders of lung; R06.09 Other forms of dyspnea; E66.9 Obesity, unspecified; Z68.38 Body mass index [BMI] 38.0-38.9, adult | CPT/HCPCS: 99212 ==

== ENCOUNTER 2023-02-01 11:37 | Day surgery (SDC) | payer OTHER, SELFPAY ==
--- NOTE | 2023-01-31 12:10 | HO.ANESPROP2 ---
Documented by User: Arianna Weber NP 01/31/23 14:11 HPI - Anesthesia Eval Consult details Narrative: 77yo F for Colonoscopy Pulmonary and cardiac clearance requested by GI provider. Pulmo pending as of 01/31/23 1400 Seen by [facility] cardiology 07/2022. ECHO and stress ordered for risk stratification. Done 10/2022 and both OK per cardiology workload. PMFSH Active Problems Active Problems: All Active Problems (Updated 01/30/23 @ 13:46 by Cassie Zuniga RN) Screening for colon cancer (Acute) Abnormal ultrasound of endometrium (Acute) Myoma (Acute) Restrictive lung disease (Acute) Somnolence, daytime (Acute) Snoring (Acute) VIRI (obstructive sleep apnea) (Acute) Dyspnea on exertion (Acute) Obesity (BMI 35.0-39.9 without comorbidity) (Acute) Past Medical History Medical History (Updated 01/30/23 @ 13:46 by Cassie Zuniga RN) Diabetes Elevated cholesterol HTN (hypertension) Restrictive lung disease Somnolence, daytime Snoring VIRI (obstructive sleep apnea) Dyspnea on exertion Obesity (BMI 35.0-39.9 without comorbidity) Family History Family History Mother Colon cancer Diabetes Heart disease Brother Colon cancer Father Angina at rest Surgical History Surgical History (Updated 01/30/23 @ 13:50 by Cassie Zuniga RN) Hx of cataract extraction H/O colonoscopy History of dilatation and curettage H/O: knee surgery Social History Social History Patient Tobacco Use Status: Never used Tobacco Meds Allergies Allergy/AdvReac Type Severity Reaction Status Date / Time Gjhqpkm-TQN-GgP Reductase Allergy Severe SEVERE Verified 12/20/22 15:57 Inhibitor DIARRHEA [XETQVAJ-NFN-PEE REDUCTASE INHIBITOR] Home Medications Medication Instructions Recorded Confirmed Last Taken Type cholecalciferol (vitamin D3) 50 50 mcg PO QPM 09/06/21 01/30/23 Unknown History mcg (2,000 unit) tablet gemfibrozil 600 mg tablet 600 mg PO BID 09/06/21 01/30/23 Unknown History glipizide 10 mg tablet 20 mg PO BID 09/06/21 01/30/23 Unknown History insulin glargine 100 unit/mL (3 35 unit subcut BEDTIME 09/06/21 01/30/23 Unknown History mL) subcutaneous pen (Lantus Solostar U-100 Insulin) lisinopril 10 mg tablet 10 mg PO QPM 09/06/21 01/30/23 Unknown History loratadine 10 mg tablet 10 mg PO QPM 09/06/21 01/30/23 Unknown History metformin 1,000 mg tablet 1,000 mg PO BID 09/06/21 01/30/23 Unknown History omega-3 acid ethyl esters 1 gram 1 cap PO DAILY 09/06/21 01/30/23 Unknown History capsule sertraline 25 mg tablet 25 mg PO QAM 09/06/21 01/30/23 Unknown History triamterene 37.5 1 cap PO QAM 09/06/21 01/30/23 Unknown History mg-hydrochlorothiazide 25 mg capsule aspirin 81 mg chewable tablet 81 mg PO QPM 07/17/22 01/30/23 Unknown History rosuvastatin 10 mg tablet 10 mg PO QPM 07/17/22 01/30/23 Unknown History Exam Exam Date and Time: January 31, 2023 1210 Assessment and Plan Assessment Anesthesia Assessment: Chart Reviewed Documented by User: Zay Montana MD 02/01/23 18:23 HPI - Anesthesia Eval Consult details Narrative: 77yo F for Colonoscopy Pulmonary and cardiac clearance requested by GI provider. Pulmo pending as of 01/31/23 1400 Seen by [facility] cardiology 07/2022. ECHO and stress ordered for risk stratification. Done 10/2022 and both OK per cardiology workload. As per pulmonary she is optimized to undergo procedure , as per the patient she had COVID 10 days ago and has since recovered . Patient understands that given all her co-morbidities and recent COVID she is a high risk for pulmonary complications . [facility] Past Medical History Medical History (Updated 01/30/23 @ 13:46 by Cassie Zuniga RN) Diabetes Elevated cholesterol HTN (hypertension) Restrictive lung disease Somnolence, daytime Snoring VIRI (obstructive sleep apnea) Dyspnea on exertion Obesity (BMI 35.0-39.9 without comorbidity) Functional capacity: independent ambulation Family History Family History Mother Colon cancer Diabetes Heart disease Brother Colon cancer Father Angina at rest Family history of problems with anesthesia: No Surgical History Surgical History (Updated 01/30/23 @ 13:50 by Cassie Zuniga RN) Hx of cataract extraction H/O colonoscopy History of dilatation and curettage H/O: knee surgery History of Problems with Anesthesia: No Social History Social History Patient Tobacco Use Status: Never used Tobacco Meds Allergies Allergy/AdvReac Type Severity Reaction Status Date / Time Qztfqtw-DTA-XjY Reductase Allergy Severe SEVERE Verified 12/20/22 15:57 Inhibitor DIARRHEA [WYBHOMM-VYO-SFW REDUCTASE INHIBITOR] Home Medications Medication Instructions Recorded Confirmed Last Taken Type cholecalciferol (vitamin D3) 50 50 mcg PO QPM 09/06/21 01/30/23 Unknown History mcg (2,000 unit) tablet gemfibrozil 600 mg tablet 600 mg PO BID 09/06/21 01/30/23 Unknown History glipizide 10 mg tablet 20 mg PO BID 09/06/21 01/30/23 Unknown History insulin glargine 100 unit/mL (3 35 unit subcut BEDTIME 09/06/21 01/30/23 Unknown History mL) subcutaneous pen (Lantus Solostar U-100 Insulin) lisinopril 10 mg tablet 10 mg PO QPM 09/06/21 01/30/23 Unknown History loratadine 10 mg tablet 10 mg PO QPM 09/06/21 01/30/23 Unknown History metformin 1,000 mg tablet 1,000 mg PO BID 09/06/21 01/30/23 Unknown History omega-3 acid ethyl esters 1 gram 1 cap PO DAILY 09/06/21 01/30/23 Unknown History capsule sertraline 25 mg tablet 25 mg PO QAM 09/06/21 01/30/23 Unknown History triamterene 37.5 1 cap PO QAM 09/06/21 01/30/23 Unknown History mg-hydrochlorothiazide 25 mg capsule aspirin 81 mg chewable tablet 81 mg PO QPM 07/17/22 01/30/23 Unknown History rosuvastatin 10 mg tablet 10 mg PO QPM 07/17/22 01/30/23 Unknown History Exam Airway Mallampati Class: IV TM Dist: <=3cm Loose/Missing/Broken Teeth: Yes (chipped teeth ) Assessment and Plan Assessment Anesthesia Assessment: Anesthesia Plan Discussed Final Anesthetic Review Family History of Problems with Anesthesia: No History of Problems with Anesthesia: No NPO: Yes ASA Class: III Final Preanesthetic Review: Meds/Allgs Chart Reviewed, Consent Obtained/Reviewed and Anes Risks/Benef Reviewed Patient Risk: High Procedure Risk: Intermediate Anesthetic Plan Anesthetic Plan: MAC: and Agree w/ Assess. and Plan Disposition: Standard PACU
--- NOTE | 2023-02-01 11:51 | MHC.SHP ---
Pre-Procedural Eval Section A Date of Service: 02/01/23 Section B Chief Complaint: Encounter for screening for malignant neoplasm Details of Present Illness: FH CRC mother and brother Relevant Family History (Specify if Yes): Yes Relevant Social History: None Present Medications: see Short Stay Collaborative assessment Medical History: Significant History (Dyspnea on exertion Obesity (BMI 35.0-39.9 without comorbidity) VIRI (obstructive sleep apnea) Restrictive lung disease Snoring Somnolence, daytime) History of Previous Operations: Relevant previous surgery/procedure and date(s) (Hx of cataract extraction H/O colonoscopy History of dilatation and curettage H/O: knee surgery) Allergies: Allergies Allergy/AdvReac Type Severity Reaction Status Date / Time Rgqveih-UIV-DvN Reductase Allergy Severe SEVERE Verified 12/20/22 15:57 Inhibitor DIARRHEA [MKJNJMR-TML-MPS REDUCTASE INHIBITOR] Review of Systems Sugical H&P ROS: Negative: Constitution, Cardiovascular, Respiratory, Neurological, Psychiatric, Hem-Onc, Allergic/Immunologic, Gastrointestinal, Genitourinary, Musculoskeletal, Integumentary, Endocrine and Eyes/Ears/Nose/Throat Exam Surgical H&P Exam: Normal: HEENT, Normal: Heart, Normal: Lungs, Normal: Extremities, Normal: Abdomen, Normal: Skin and Normal: Neurological Plan Diagnosis/Plan: Unchanged I have reviewed the history and physical and performed a pertinent physical examination on my patient. No changes have occurred unless specified. Time Spent With Patient Time: Total time managing care of this patient today ____ minutes.
[2023-02-01 11:53] VITALS: BMI 39.0
[2023-02-01] MEDS: Lactated Ringers 1,000 ML 100 ML IVCONT (12:04)
[2023-02-01 12:13] VITALS: BP 131/73; PULSE 86; RESP 18; TEMP 36.6; O2SAT 95
--- NOTE | 2023-02-01 12:14 | PC.NURSE ---
dr. beltran aware of poc of 190 and that patient lung sounds are clear, but slightly diminished in bilateral bases. okay to proceed. no interventions at this time.
[2023-02-01 12:28] LABS: Glucose, Whole Blood 190 mg/dL (60-115)
--- NOTE | 2023-02-01 13:09 | P.OP_ITS ---
Operative Note Operative Note Date of Service: 02/01/23 Narrative: Operative Information Procedure Description: Colonoscopy Indication: FH of CRC Anesthesia: MAC COLONOSCOPY Instrument: Olympus variable stiffness ADULT scope 190L Colonoscopy Monitoring: Vital signs and clinical assessment, continuous EKG monitoring, Pulse oximetry, Carbon Dioxide monitoring and blood pressure monitoring were done throughout the procedure. Colon withdrawal time was 10 minutes. Procedure: The patient was placed in the left lateral decubitis position and pre-procedure medications were administered. After a digital rectal examination of the ano-rectum, the video colonoscope was inserted into the rectum and advanced through the colon to the cecum/TI. The colonoscope was slowly withdrawn in a retrograde panoramic fashion and the colon mucosa was carefully examined including a retroflexed view of the rectum. Findings and interventions are described below. Procedure Difficulty: moderate due to looping and prep Findings: Terminal Ileum-not intubated Cecum:normal Ascending Colon: scattered diverticula Transverse Colon -normal Descending Colon:normal Sigmoid Colon: severe diverticulosis with narrowing of lumen and hypertrophic mucosa Rectum: Retroflexion with small internal hemorrhoids, grade I, 4-6 mm sessile polyp removed with cold forceps Anorectum - normal Colon preparation: [place] Bowel Preparation Scale Right colon; 2 Transverse colon: 2 Left colon; 1-2 (0 = Unprepared colon segment with mucosa not seen due to solid stool that cannot be cleared. 1 = Portion of mucosa of the colon segment seen, but other areas of the colon segment not well seen due to staining, residual stool and/or opaque liquid. 2 = Minor amount of residual staining, small fragments of stool and/or opaque liquid, but mucosa of colon segment seen well. 3 = Entire mucosa of colon segment seen well with no residual staining, small fragments of stool or opaque liquid) Impression and Post Procedure Diagnosis: polyp internal hemorrhoids diverticular disease Plan: High fiber diet leaflet Avoid straining at stool, epsom salts and sitz bath, anusol supps or cream Repeat Colonoscopy in 1-2 years due to fair prep in areas or earlier if clinically indicated Above findings were reviewed with the patient and relevant handouts were provided if indicated.
[2023-02-01 13:14] VITALS: BP 109/56; PULSE 75; RESP 20; TEMP 36.9; O2SAT 95
[2023-02-01 13:29] VITALS: BP 131/64; PULSE 79; RESP 16; TEMP 36.4; O2SAT 96
== END 2023-02-01 14:07 | disposition home or self-care (01) ==
PROVIDERS: PCP Student in an Organized Health Care Education/Training Program; Visit Provider Internal Medicine Gastroenterology
PROC: 0DJD8ZZ Inspection of Lower Intestinal Tract, Via Natural or Artificial Opening Endoscopic (ICD-10-PCS; CPT 45378; principal; 2023-02-01 13:20)
DX: Z12.11 Encounter for screening for malignant neoplasm of colon (principal); Z80.0 Family history of malignant neoplasm of digestive organs; K62.1 Rectal polyp; K57.30 Diverticulosis of large intestine without perforation or abscess without bleeding; K64.0 First degree hemorrhoids; E11.9 Type 2 diabetes mellitus without complications; R06.09 Other forms of dyspnea; G47.33 Obstructive sleep apnea (adult) (pediatric); J98.4 Other disorders of lung; E66.9 Obesity, unspecified; Z68.38 Body mass index [BMI] 38.0-38.9, adult; Z79.4 Long term (current) use of insulin; Z79.899 Other long term (current) drug therapy; Z88.8 Allergy status to other drugs, medicaments and biological substances
CPT/HCPCS: 45380; 82947; 88305

== ENCOUNTER → 2023-02-01 11:37 | Outpatient (BNV) | payer OTHER, SELFPAY | PROVIDERS: PCP Student in an Organized Health Care Education/Training Program; Visit Provider Internal Medicine Gastroenterology | DX: Z12.11 Encounter for screening for malignant neoplasm of colon (principal); Z80.0 Family history of malignant neoplasm of digestive organs; K64.0 First degree hemorrhoids; D12.8 Benign neoplasm of rectum; K57.30 Diverticulosis of large intestine without perforation or abscess without bleeding | CPT/HCPCS: 45380 ==

== ENCOUNTER 2023-02-14 14:02 | Outpatient (AMB) | payer OTHER, SELFPAY ==
[2023-02-14 14:04] VITALS: BP 118/75; PULSE 94; O2SAT 95; BMI 37.4
--- NOTE | 2023-02-14 14:04 | A.OFFVIS_ITS ---
Intake Vital Signs 02/14/23 14:04 Height 5 ft 1.5 in Weight 201 lb 0.985 oz BMI 37.4 BP 118/75 Blood Pressure Location Lt brachial Position Sitting Pulse 94 Pulse Source Pulse Oximeter Pulse Oximetry (%) 95 Oxygen Delivery Method Room Air Intake Visit Reasons: s/p repeat colon- Ceron Intake Note: Pt presents to the office today for a s/p repeat colonoscopy. Pt states she is feeling well and denies any GI upsets. Allergies Nnunvrv-LKC-ByK Reductase Inhibitor [PDNQDPB-XCF-PHZ REDUCTASE INHIBITOR] Allergy (Severe, Verified 02/14/23 14:07) SEVERE DIARRHEA HPI s/p repeat colon- Ceron HPI Details LAST VISIT: Screening for colon cancer Patient had stress test and echo and was told that everything was okay, official appointment will be in November and patient will be cleared then. We will schedule colonoscopy today. Patient can be scheduled in December after appointment with client services vice president. Went over the prep again with the patient and clear liquid diet. I will see patient after the procedure, sooner on as needed basis. Patient is agreeable to this plan and verbalizes understanding of instructions. She was given the opportunity to ask questions and all questions answered. COLONOSCOPY: Findings: Terminal Ileum-not intubated Cecum:normal Ascending Colon: scattered diverticula Transverse Colon -normal Descending Colon:normal Sigmoid Colon: severe diverticulosis with narrowing of lumen and hypertrophic mucosa Rectum: Retroflexion with small internal hemorrhoids, grade I, 4-6 mm sessile polyp removed with cold forceps Anorectum - normal Colon preparation: [place] Bowel Preparation Scale Right colon; 2 Transverse colon: 2 Left colon; 1-2 (0 = Unprepared colon segment with mucos a not seen due to solid stool that cannot be cleared. 1 = Portion of mucosa of the colon segme nt seen, but other areas of the colon segment not well seen due to staining, residual stool and/or opaque liquid. 2 = Minor amount of residual staining, s mall fragments of stool and/or opaque liquid, but mucosa of colon segment seen well. 3 = Entire mucosa of colon segment seen well with no residual staining, small fragments of stool or opaque liquid) Impression and Post Procedure Diagnosis: polyp internal hemorrhoids diverticular disease Plan: High fiber diet leaflet Avoid straining at stool, epsom salts and sitz bath, anusol supps or cream Repeat Colonoscopy in 1-2 years due to fair prep in areas or earlier if clinically indicated PATHOLOGY RESULTS: Diagnosis Colon, rectal polyp: Polypoid colonic mucosa with minor hyperplastic changes; negative for adenomatous dysplasia TODAY'S VISIT: Patient is here today for follow-up and to discuss colonoscopy results. Patient had 1 rectal polyp, however due to suboptimal prep some areas might of been missed for any additional polyps. Colonoscopy was recommended to be repeated in 1-2 years. Patient does admit to be constipated does not move her bowels every day and when she does she does not feel like she empties them completely. Diverticulosis of sigmoid colon seen. Patient denies melena, hematochezia, unintentional weight loss or ribbon like stools. Denies dyspepsia, dysphagia or odynophagia. Patient denies any other GI concerning symptoms. FORMERLY [facility], [facility] Medical History (Updated 02/14/23 @ 14:39 by Aarti Walters, [facility]) Diverticulosis Diabetes Elevated cholesterol HTN (hypertension) Restrictive lung disease Somnolence, daytime Snoring VIRI (obstructive sleep apnea) Dyspnea on exertion Obesity (BMI 35.0-39.9 without comorbidity) Surgical History Hx of cataract extraction H/O colonoscopy History of dilatation and curettage H/O: knee surgery Family History Mother Colon cancer Diabetes Heart disease Brother Colon cancer Father Angina at rest Social History Household Members: None Housing: Apartment Alcohol intake: never Patient Tobacco Use Status: Never used Tobacco Review of Systems Const Denies weight gain and Denies weight loss ENT Reports no additional complaints, Denies dysphagia and Denies odynophagia Card Reports no additional complaints Resp Reports no additional complaints GI Denies abdominal pain, Denies belching, Denies melena, Denies bloating, Reports constipation, Denies dysphagia, Denies excessive flatus, Denies dyspepsia, Denies heartburn, Denies diarrhea, Denies loose stools, Denies nausea, Denies od ynophagia and Denies vomiting Reports no additional complaints Musc Reports no additional complaints Neuro Reports no additional complaints Psych Reports no additional complaints Endo Reports no additional complaints Physical Exam Vital Signs: Last Vital Signs Pulse 94 02/14/23 14:04 BP 118/75 02/14/23 14:04 Pulse Ox 95 02/14/23 14:04 Oxygen Delivery Method Room Air 02/14/23 14:04 BMI result Body Mass Index 37.4 Const General: healthy appearing, no acute distress and well developed Nutritional Appearance: obese Orientation/consciousness: patient oriented x3 HEENT Head: Yes normal to inspection, Yes normocephalic and Yes atraumatic Face and sinus: Yes normal facial exam Mouth: Normal oral and palatal mucosa present Throat: Yes posterior oropharynx normal, Yes tonsils normal and Yes uvula midline Eyes General: appearance normal, both eyes and all related structures Neck Neck: Yes normal visual inspection, Yes full ROM and Yes trachea midline Thyroid: Thyroid normal Resp Effort & Inspection: normal respiratory effort, able to speak in complete sentences, no tracheal deviation and symmetric chest movement Auscultation: clear to auscultation bilaterally Cardio Rate: regular rate Heart sounds: S1 normal heart sound present and S2 normal heart sound present GI Inspection: Yes normal to inspection, No distended and Yes obesity Palpation (GI): Soft to palpation, not firm, nontender and No hepatosplenomegaly present Auscultation: normal bowel sounds General: Yes no CVA tenderness Back/Spine/Pelvis Back: no CVA tenderness Skin General skin exam: elasticity normal, turgor normal and dry skin Neuro General: patient oriented x3 Psych Appearance: grossly normal Mental Status: mental status grossly normal Assessment & Plan Assessment & Plan (1) Diverticulosis: Code(s): K57.90 - Diverticulosis of intestine, part unspecified, without perforation or abscess without bleeding (2) Constipation: Code(s): K59.00 - Constipation, unspecified Qualifiers: Constipation type: slow transit constipation Qualified Code(s): K59.01 - Slow transit constipation Plan Diagnosed with diverticulosis on colonoscopy. Narrowing seen in sigmoid colon. That could be contributing to patient's constipation and unable to completely empty her bowels. Patient will start MiraLax and Colace. She was encouraged to increase fluid intake and activity to promote better bowel motility. Patient had suboptimal prep as mentioned above in HPI and she will need to return for colorectal screening in 1-2 years. I will see her in 3 months, sooner on as needed basis. Patient is agreeable to this plan and verbalizes understanding of instructions. She was given the opportunity to ask questions and all questions answered. Thank you for allowing me to participate in her care Medications: New docusate sodium 100 mg PO DAILY 30 caps 3RF K59.00 - Constipation, unspecified polyethylene glycol 3350 (Miralax) 17 grams PO DAILY 510 grams 2RF Coding Level of Care Code Est Pt Level 3 (99287) Diagnoses Diverticulosis K57.90 Slow transit constipation K59.01 Constipation type: slow transit constipation Time Spent (min) 25 Comment 15 minutes spent with patient and additional 10 minutes spent reviewing her records
== END 2023-02-14 14:49 | disposition home or self-care (01) ==
PROVIDERS: PCP Student in an Organized Health Care Education/Training Program; Visit Provider Nurse Practitioner Family
DX: K57.90 Diverticulosis of intestine, part unspecified, without perforation or abscess without bleeding (principal); K59.01 Slow transit constipation
CPT/HCPCS: 99213

== ENCOUNTER → 2023-02-14 14:02 | Outpatient (BNVA) | payer OTHER, SELFPAY | PROVIDERS: PCP Student in an Organized Health Care Education/Training Program; Visit Provider Nurse Practitioner Family | DX: K57.90 Diverticulosis of intestine, part unspecified, without perforation or abscess without bleeding (principal); K59.01 Slow transit constipation | CPT/HCPCS: 99212 ==

== ENCOUNTER 2023-03-08 13:15 | Outpatient (AMB) | payer OTHER, SELFPAY ==
--- NOTE | 2023-03-08 13:20 | MHC.OFFVIS ---
Intake Vital Signs 03/08/23 13:22 Height 5 ft 1.5 in Weight 198 lb BMI 36.8 BP 120/72 Blood Pressure Location Lt brachial Position Sitting Pulse 91 Pulse Source Pulse Oximeter Pulse Oximetry (%) 96 Oxygen Delivery Method Room Air Intake Visit Reasons: benita Intake Note: pt is here for follow up of cpap and oxygen and is doing good, feels better, sleeping longer. Prosthetic Makeup Designer Required: No Allergies Pdlvbca-SMV-SkH Reductase Inhibitor [ERXTINQ-PHI-KLN REDUCTASE INHIBITOR] Allergy (Severe, Verified 03/08/23 13:41) SEVERE DIARRHEA Medication List - Last Reconciled 03/08/23 by Goldy Wiley MD aspirin 81 mg PO QPM cholecalciferol (vitamin D3) 50 mcg PO QPM docusate sodium 100 mg PO DAILY gemfibrozil 600 mg PO BID glipizide 20 mg PO BID insulin glargine (Lantus Solostar U-100 Insulin) 35 units subcut BEDTIME lisinopril 10 mg PO QPM loratadine 10 mg PO QPM metformin 1,000 mg PO BID omega-3 acid ethyl esters 1 cap PO DAILY polyethylene glycol 3350 (Miralax) 17 grams PO DAILY rosuvastatin 10 mg PO QPM sertraline 25 mg PO QAM triamterene-hydrochlorothiazid 37.5-25 mg 1 cap PO QAM Do you need a note to return to daycare/school/sports/work: No HPI benita HPI Details 77 YEARS OLD VERY PLEASANT FEMALE IS HERE FOR FOLLOW-UP FOR HER SLEEP APNEA. SHE USES THE CPAP VERY REGULARLY, ALONG WITH OXYGEN 1 L/MINUTE. SLEEPS GOOD AND WAKES. UP MORE REFRESHED ON SOME OF THE NIGHTS SHE ACTUALLY FALLS ASLEEP BEFORE SHE CAN PUT ON THE CPAP MASK. THERE IS SOME AIR LEAK ISSUE . OVERALL SHE DOES FEELS MUCH BETTER. SHE HAS LOST ABOUT 3 LB OF WEIGHT ALSO . [facility] Medical History Diverticulosis Diabetes Elevated cholesterol HTN (hypertension) Restrictive lung disease Somnolence, daytime Snoring BENITA (obstructive sleep apnea) Dyspnea on exertion Obesity (BMI 35.0-39.9 without comorbidity) Surgical History Hx of cataract extraction H/O colonoscopy History of dilatation and curettage H/O: knee surgery Family History Mother Colon cancer Diabetes Heart disease Brother Colon cancer Father Angina at rest Social History Household Members: None Housing: Apartment Alcohol intake: never Patient Tobacco Use Status: Never used Tobacco Review of Systems Const All systems reviewed & are unremarkable except as noted in HPI and below Eyes Reports no additional complaints ENT Reports no additional complaints Card Denies chest pain, Denies irregular heart rhythm and Denies lightheadedness Resp Reports as per HPI GI Reports constipation Reports no additional complaints Musc Reports no additional complaints Skin/Breast Reports system reviewed and no additional complaints, except as documented Neuro Reports no additional complaints Psych Reports depression (Mild being treated with sertraline) Endo Reports no additional complaints Robe/Lymph Reports no additional complaints Physical Exam Vital Signs: Last Vital Signs Pulse 91 03/08/23 13:22 BP 120/72 03/08/23 13:22 Pulse Ox 96 03/08/23 13:22 Oxygen Delivery Method Room Air 03/08/23 13:22 BMI result Body Mass Index 36.8 Patient is of a short stature and grossly obese with a round face and short neck. Const General: healthy appearing (Except for being overweight), comfortable, no acute distress, alert and awake Orientation/consciousness: patient oriented x3 HEENT Head: Yes normal to inspection General nose exam: No nasal polyps present and No nasal discharge present Face and sinus: Yes sinuses nontender Mouth: oropharynx abnormals (Tongue is placed back and oropharynx is very crowded, Mallampati class 4.) Throat: Yes posterior oropharynx normal Eyes General: appearance normal, both eyes and all related structures Neck Neck: Yes normal visual inspection, Yes no lymphadenopathy, Yes trachea midline, Yes no JVD and Yes other (Neck size 17 in. Neck is quite short.) Thyroid: Thyroid normal Chest Chest palpation & inspection: normal inspection of the chest, normal palpation of entire chest wall and No Pacemaker present Resp Other: Percussion note resonant. Breath sounds are decreased over the basilar areas. No wheezes rhonchi or crepitations are heard. Cardio Palpation: normal PMI Rate: regular rate Rhythm: regular rhythm Heart sounds: no gallops and no murmurs Peripheral pulses: Peripheral pulses 2+ throughout GI Palpation (GI): Soft to palpation, nontender, No hepatosplenomegaly present, no masses and Other GI palpation findings present (Abdomen is obese and protuberant) Auscultation: normal bowel sounds Back/Spine/Pelvis Thoracic/Lumbar Spine: thoracic and lumbar spine normal to inspection Skin General skin exam: no rashes or lesions noted Neuro General: patient oriented x3 and no focal motor deficits Cranial nerves: Yes CN's II-XII intact bilaterally Extrem General: Yes normal to inspection, Yes no clubbing, cyanosis or edema and Yes no calf tenderness Psych Appearance: grossly normal and well kempt Speech and movement: Normal speech and movement present Results Reviewed Results Reviewed: COMPLIANCE REPORT IS REVIEWED. SHE USED 27/30 NIGHTS, 90%. AVERAGE USE PER NIGHT 5 HOURS 36 MINUTE. PRESSURE 11 CM WITH OXYGEN 1 L/MINUTE. MODERATE AIR LEAK WITH MAXIMUM 89 L. RESIDUAL AHI IS STILL 6.1 Assessment & Plan Assessment & Plan (1) Obesity (BMI 35.0-39.9 without comorbidity): Comment: She is grossly obese with a round face. TRYING TO LOSE WEIGHT SLOWLY, HAS LOST 3 LB SINCE LAST VISIT. Code(s): E66.9 - Obesity, unspecified (2) Dyspnea on exertion: Comment: Dyspnea on exertion is probably due to restrictive pulmonary disorder, which in turn is due to abdominal obesity. I do not think she has any obstructive component. Pulmonary function test confirms presence of mild to moderate restrictive pulmonary disorder. Patient has been advised to do deep breathing exercises 3 times a day. Code(s): R06.09 - Other forms of dyspnea (3) BENITA (obstructive sleep apnea): Comment: Confirmed case of obstructive sleep apnea/nocturnal hypoxemia. She is being treated with CPAP, 11 cm, fullface mask, plus O2 1 L/minute. Sleeping much better and denies any. Daytime sleepiness She is very compliant, and encouraged to keep on using the CPAP every night. Code(s): G47.33 - Obstructive sleep apnea (adult) (pediatric) (4) Restrictive lung disease: Comment: Pulmonary function test shows moderate degree of restrictive pulmonary disorder. FVC= 67 % DLCO 63 % NO OBSTRUCTIVE AIRWAY DISORDER. This is due to her gross obesity. Explained thoroughly about her restrictive disorder( small lungs) TX: Weight reduction, explained, Deep breathing exercises explained. Code(s): J98.4 - Other disorders of lung Coding Level of Care Code Est Pt Level 3 (82283) Diagnoses Obesity (BMI 35.0-39.9 without comorbidity) E66.9 Dyspnea on exertion R06.09 BENITA (obstructive sleep apnea) G47.33 Restrictive lung disease J98.4
[2023-03-08 13:22] VITALS: BP 120/72; PULSE 91; O2SAT 96; BMI 36.8
== END 2023-03-08 13:40 | disposition home or self-care (01) ==
PROVIDERS: PCP Student in an Organized Health Care Education/Training Program; Visit Provider Internal Medicine
DX: E66.9 Obesity, unspecified (principal); R06.09 Other forms of dyspnea; G47.33 Obstructive sleep apnea (adult) (pediatric); J98.4 Other disorders of lung
CPT/HCPCS: 99213

== ENCOUNTER → 2023-03-08 13:15 | Outpatient (BNVA) | payer OTHER, SELFPAY | PROVIDERS: PCP Student in an Organized Health Care Education/Training Program; Visit Provider Internal Medicine | DX: G47.33 Obstructive sleep apnea (adult) (pediatric) (principal); R06.09 Other forms of dyspnea; J98.4 Other disorders of lung; E66.9 Obesity, unspecified; Z68.36 Body mass index [BMI] 36.0-36.9, adult | CPT/HCPCS: 99212 ==

== ENCOUNTER 2023-04-09 09:55 | Outpatient (REF) | payer OTHER, SELFPAY ==
[2023-04-09 14:15] VITALS: BP 157/83; PULSE 90; RESP 16; TEMP 36.3; O2SAT 97
== END 2023-04-09 09:56 | disposition home or self-care (01) ==
LOC: HO.MS 09:55
PROVIDERS: PCP Student in an Organized Health Care Education/Training Program; Visit Provider Ophthalmology
PROC: (CPT 66821; principal; 2023-04-09 12:30)
DX: H26.492 Other secondary cataract, left eye (principal); I10 Essential (primary) hypertension; E11.9 Type 2 diabetes mellitus without complications
CPT/HCPCS: 66821

== ENCOUNTER 2023-05-14 14:06 | Outpatient (AMB) | payer OTHER, SELFPAY ==
[2023-05-14 14:14] VITALS: BP 145/63; PULSE 79; BMI 37.8
--- NOTE | 2023-05-14 14:14 | A.OFFVIS_ITS ---
Intake Vital Signs 05/14/23 14:14 Height 5 ft 1.5 in Weight 203 lb 4.259 oz BMI 37.8 BP 145/63 H Blood Pressure Location Lt brachial Position Sitting Pulse 79 Intake Visit Reasons: 3 months follow up Intake Note: Pt presents to the office today in follow up of constipation. CC: Patient reports doing well and having regular BMs. Denies having any GI concerns today. Helicopter Engineer Required: No Allergies Prykrgh-ODJ-QnE Reductase Inhibitor [CMXAPFE-ETA-LPG REDUCTASE INHIBITOR] Allergy (Severe, Verified 05/14/23 14:18) SEVERE DIARRHEA HPI 3 months follow up HPI Details LAST VISIT Diverticulosis Constipation Plan Diagnosed with diverticulosis on colonoscopy. Narrowing seen in sigmoid colon. That could be contributing to patient's constipation and unable to completely empty her bowels. Patient will start MiraLax and Colace. She was encouraged to increase fluid intake and activity to promote better bowel motility. Patient had suboptimal prep as mentioned above in HPI and she will need to return for colo rectal screening in 1-2 years. I will see her in 3 months, sooner on as needed basis. Patient is agreeable to this plan and verbalizes understanding of instructions. She was given the opportunity to ask questions and all questions answered. ? Thank you for allowing me to participate in her care Medications New docusate sodium 100 mg PO DAILY 30 caps 3RF K59.00 polyethylene glycol 3350 (Miralax) 17 grams PO DAILY 510 grams 2RF TODAY'S VISIT Patient is here today for follow-up. Patient reports that she has been moving her bowels without any issues. No longer needs to take Colace or MiraLax. Patient states that she eats lots of fruits and vegetables. Tries to eat healthier. Denies any abdominal pain or discomfort. Patient denies dyspepsia, dysphagia or odynophagia. Denies any melena, hematochezia, unintentional weight loss or ribbon like stools. Patient reports that she has been feeling well. Patient knows that she will need colonoscopy within the next year and a half or so. Patient did had suboptimal prep on her last colonoscopy. No polyps found. FORMERLY [facility] Medical History Diverticulosis Diabetes Elevated cholesterol HTN (hypertension) Restrictive lung disease Somnolence, daytime Snoring VIRI (obstructive sleep apnea) Dyspnea on exertion Obesity (BMI 35.0-39.9 without comorbidity) Surgical History Hx of cataract extraction H/O colonoscopy History of dilatation and curettage H/O: knee surgery Family History Mother Colon cancer Diabetes Heart disease Brother Colon cancer Father Angina at rest Social History Household Members: None Housing: Apartment Alcohol intake: never Patient Tobacco Use Status: Never used Tobacco Review of Systems Const Denies weight gain and Denies weight loss ENT Reports no additional complaints, Denies dysphagia and Denies odynophagia Card Reports no additional complaints Resp Reports no additional complaints GI Denies abdominal pain, Denies belching, Denies melena, Denies bloating, Denies change in bowel habits, Denies dysphagia, Denies excessive flatus, Denies dyspep cindy, Denies heartburn, Denies diarrhea, Denies loose stools, Denies nausea, Denies odynophagia and Denies vomiting Musc Reports no additional complaints Neuro Reports no additional complaints Psych Reports no additional complaints Endo Reports no additional complaints Physical Exam Vital Signs: Last Vital Signs Pulse 79 05/14/23 14:14 BP 145/63 H 05/14/23 14:14 BMI result Body Mass Index 37.8 Const General: healthy appearing, no acute distress and well developed Nutritional Appearance: obese Orientation/consciousness: patient oriented x3 Resp Effort & Inspection: normal respiratory effort, able to speak in complete sentences, no tracheal deviation and symmetric chest movement Auscultation: clear to auscultation bilaterally Cardio Rate: regular rate GI Inspection: Yes normal to inspection, No distended and Yes obesity Palpation (GI): Soft to palpation, not firm, nontender and No hepatosplenomegaly present Auscultation: normal bowel sounds General: Yes no CVA tenderness Back/Spine/Pelvis Back: no CVA tenderness Skin General skin exam: elasticity normal, turgor normal and dry skin Neuro General: patient oriented x3 Psych Appearance: grossly normal Mental Status: mental status grossly normal Assessment & Plan Assessment & Plan (1) Diverticulosis: Code(s): K57.90 - Diverticulosis of intestine, part unspecified, without perforation or abscess without bleeding (2) Constipation: Code(s): K59.00 - Constipation, unspecified Qualifiers: Constipation type: slow transit constipation Qualified Code(s): K59.01 - Slow transit constipation Plan Patient was encouraged to continue eating fruits and vegetables. Increase fiber in her diet. Patient was also encouraged to try probiotics if she can tolerate them. Patient was encouraged to increase fluid intake and activity to promote better bowel motility. I will see her in 1 year so we can discuss colonoscopy. Her last colonoscopy in January of 2023 with suboptimal prep to left colon and recommendation was to repeated in 1-2 years. Patient does have a family history of colorectal cancer. Will book colonoscopy when she returns in 1 year, sooner if clinically necessary. Patient is agreeable to this plan and verbalizes understanding of instructions. She was given the opportunity to ask questions and all questions answered. Thank you for allowing me to participate in her care Coding Level of Care Code Est Pt Level 3 (58312) Diagnoses Diverticulosis K57.90 Slow transit constipation K59.01 Constipation type: slow transit constipation Time Spent (min) 25 Comment 15 minutes spent with patient and additional 10 minutes spent reviewing her records
== END 2023-05-14 14:35 | disposition home or self-care (01) ==
PROVIDERS: PCP Student in an Organized Health Care Education/Training Program; Visit Provider Nurse Practitioner Family
DX: K57.90 Diverticulosis of intestine, part unspecified, without perforation or abscess without bleeding (principal); K59.01 Slow transit constipation
CPT/HCPCS: 99213

== ENCOUNTER → 2023-05-14 14:06 | Outpatient (BNVA) | payer OTHER, SELFPAY | PROVIDERS: PCP Student in an Organized Health Care Education/Training Program; Visit Provider Nurse Practitioner Family | DX: K57.90 Diverticulosis of intestine, part unspecified, without perforation or abscess without bleeding (principal); K59.01 Slow transit constipation | CPT/HCPCS: 99212 ==

== ENCOUNTER 2023-05-19 12:49 | Outpatient (AMB) | payer OTHER, SELFPAY ==
[2023-05-19 13:46] VITALS: BP 124/76; PULSE 75; O2SAT 94; BMI 33.3
--- NOTE | 2023-05-19 13:46 | MHC.OFFWIV ---
Intake Vital Signs 05/19/23 13:46 Height 5 ft 5.1 in Weight 201 lb BMI 33.3 BP 124/76 Blood Pressure Location Lt brachial Position Sitting Pulse 75 Pulse Source Pulse Oximeter Pulse Oximetry (%) 94 Oxygen Delivery Method Room Air Intake Visit Reasons: [employer] Back pain/RT side Intake Note: Patient is here with back pain in the right side since Sunday. Ibuprofen helps some, she states. Patient Tobacco Use Status: Never used Tobacco Allergies Jcbcbbj-KII-PyS Reductase Inhibitor [POUEXQN-BQG-FUJ REDUCTASE INHIBITOR] Allergy (Severe, Verified 05/19/23 14:04) SEVERE DIARRHEA Medication List - Last Reconciled 05/19/23 by Kim Narayan CNP aspirin 81 mg PO QPM cholecalciferol (vitamin D3) 50 mcg PO QPM docusate sodium 100 mg PO DAILY gemfibrozil 600 mg PO BID glipizide 20 mg PO BID insulin glargine (Lantus Solostar U-100 Insulin) 35 units subcut BEDTIME lisinopril 10 mg PO QPM loratadine 10 mg PO QPM metformin 1,000 mg PO BID omega-3 acid ethyl esters 1 cap PO DAILY polyethylene glycol 3350 (Miralax) 17 grams PO DAILY rosuvastatin 10 mg PO QPM sertraline 25 mg PO QAM triamterene-hydrochlorothiazid 37.5-25 mg 1 cap PO QAM Do you need a note to return to daycare/school/sports/work: No HPI HPI Comments History of Present Illness Details 77-year-old female presents to walk-in clinic for complaint of right sided back pain x 5 days, she does endorse taking Ibuprofen with some relief. Right sided back pain is localized at right flank area, she denies urinary frequency, dysuria, hematuria, fever, chills, CP, SOB, abdominal pain, nausea, vomiting, changes in bowels or bladder. She also denies recent trauma or fall, but does admit to reaching and twisting for an object on the ground 6 days ago. [facility] Medical History Diverticulosis Diabetes Elevated cholesterol HTN (hypertension) Restrictive lung disease Somnolence, daytime Snoring VIRI (obstructive sleep apnea) Dyspnea on exertion Obesity (BMI 35.0-39.9 without comorbidity) Surgical History Hx of cataract extraction H/O colonoscopy History of dilatation and curettage H/O: knee surgery Family History Mother Colon cancer Diabetes Heart disease Brother Colon cancer Father Angina at rest Social History Household Members: None Housing: Apartment Alcohol intake: never Patient Tobacco Use Status: Never used Tobacco Review of Systems Const All systems reviewed & are unremarkable except as noted in HPI and below Physical Exam Vital Signs: Last Vital Signs Pulse 75 05/19/23 13:46 BP 124/76 05/19/23 13:46 Pulse Ox 94 05/19/23 13:46 Oxygen Delivery Method Room Air 05/19/23 13:46 BMI result Body Mass Index 33.3 Const General: healthy appearing and no acute distress Nutritional Appearance: overweight Orientation/consciousness: patient oriented x3 Limitations: no limitations HEENT Head: Yes normal to inspection, Yes normocephalic and Yes atraumatic Mouth: moist mucous membranes Eyes General: appearance normal, both eyes and all related structures Neck Neck: Yes normal visual inspection, Yes full ROM, Yes no lymphadenopathy and Yes trachea midline Chest Chest palpation & inspection: normal inspection of the chest Resp Effort & Inspection: normal respiratory effort, no respiratory distress and not tachypneic Auscultation: clear to auscultation bilaterally, no crackles, no rhonchi and no wheezes Cardio Rate: regular rate Rhythm: regular rhythm Heart sounds: S1 normal heart sound present and S2 normal heart sound present Peripheral pulses: Peripheral pulses 2+ throughout GI Inspection: Yes normal to inspection Palpation (GI): Soft to palpation, nontender and no guarding Percussion: Yes normal to percussion Auscultation: normal bowel sounds General: Yes bladder normal to inspection and Yes no CVA tenderness Back/Spine/Pelvis Back: no CVA tenderness Thoracic/Lumbar Spine: paraspinal muscle tenderness on the right (posterior, right flank area, no erythema, echymosis, swelling, or deformities. ) in the mid thoracic Skin General skin exam: no rashes or lesions noted, elasticity normal and turgor normal Neuro General: patient oriented x3, gait normal, moves all extremities and no focal motor deficits Extrem General: Yes normal to inspection, Yes capillary refill normal and Yes no clubbing, cyanosis or edema Psych Appearance: well kempt Affect: normal affect Attitude: cooperative Assessment & Plan Assessment & Plan (1) Muscle strain: Comment: muscle strain right lower back from twisting and lifting Code(s): T14.8XXA - Other injury of unspecified body region, initial encounter Plan: 77-year-old female seen today in walk-in clinic for complaint of right sided back pain x 5 days associated with reaching and twisting for an object on the ground 6 days ago. She denies urinary frequency, dysuria, hematuria, fever or chills. Will treat for muscle strain due to twisting and pulling. 1. Tylenol 1000 mg, orally, every 6 hours as needed for right mid back muscle pain. 2. Lidocaine patch, available [id number] and should be apply to area of maximal tenderness as directed on the outside packaging. 3. Ibuprofen 800 mg, orally with milk or food, every 8 hours as needed for right mid back muscle pain. 4. Ice to muscle pain twice a day, may alternate w/ heat therapy. Encouraged if pain persists or worsens to follow up with ER as this pain could be contributed to kidney stones. Call office, or go to ER for acute worsening of symptoms. Medications: New ibuprofen muscle strain of right lower back 800 mg PO Q8H PRN 20 tabs 0RF pain T14.8XXA - Other injury of unspecified body region, initial encounter lidocaine 5% leave on most painful area for up to 12 hrs 1 patch topical DAILY 15 ea 0RF pain T14.8XXA - Other injury of unspecified body region, initial encounter Coding Level of Care Code Est Pt Level 3 (29439) Diagnoses Muscle strain T14.8XXA
== END 2023-05-19 14:19 | disposition home or self-care (01) ==
PROVIDERS: PCP Student in an Organized Health Care Education/Training Program; Visit Provider Nurse Practitioner Acute Care
DX: T14.8XXA Other injury of unspecified body region, initial encounter (principal)
CPT/HCPCS: 99051; 99213

== ENCOUNTER 2023-06-20 10:13 | Outpatient (REF) | payer OTHER, SELFPAY ==
[2023-06-20 16:06] LABS: Estimated Average Glucose 229 mg/dL; Hemoglobin A1c % 9.6 % (<6.0)
[2023-06-20 17:57] LABS: Alanine Aminotransferase 13 U/L (0-31); Albumin Level 4.3 g/dL (3.5-5.0); Alkaline Phosphatase 50 U/L (39-117); Anion Gap 15 (12-20); Aspartate Amino Transferase 10 U/L (5-31); Bilirubin Direct 0.1 mg/dL (0.0-0.5); Bilirubin Total 0.3 mg/dL (0.0-1.0); Blood Urea Nitrogen 37 mg/dL (9-16); Calcium 10.7 mg/dL (8.4-10.2); Carbon Dioxide 25 mmol/L (22-29); Chloride 102 mmol/L (96-108); Cholesterol 140 mg/dL (<200); Estimated Glomerular Filt Rate 37; Glucose Random 127 mg/dL (60-115); HDL Cholesterol 33 mg/dL (>40); LDL Cholesterol Calculated 61 mg/dL (<100); Potassium 4.4 mmol/L (3.3-5.1); Sodium 138 mmol/L (135-145); Total Protein 7.3 g/dL (6.5-8.0); Triglycerides 232 mg/dL (<150)
== END 2023-06-20 10:14 | disposition home or self-care (01) ==
LOC: HO.CHCLDS 10:13
PROVIDERS: Visit Provider Student in an Organized Health Care Education/Training Program
DX: E78.00 Pure hypercholesterolemia, unspecified (principal); E11.9 Type 2 diabetes mellitus without complications; Z79.4 Long term (current) use of insulin
CPT/HCPCS: 36415; 80048; 80061; 80076; 83036

== ENCOUNTER 2024-03-07 09:55 | Outpatient (REF) | payer OTHER, SELFPAY ==
[2024-03-07 14:29] LABS: Alanine Aminotransferase 18 U/L (0-31); Albumin Level 4.6 g/dL (3.5-5.0); Alkaline Phosphatase 60 U/L (39-117); Anion Gap 13 (12-20); Aspartate Amino Transferase 17 U/L (5-31); Bilirubin Direct 0.1 mg/dL (0.0-0.5); Bilirubin Total 0.3 mg/dL (0.0-1.0); Blood Urea Nitrogen 41 mg/dL (9-16); Calcium 10.4 mg/dL (8.4-10.2); Carbon Dioxide 27 mmol/L (22-29); Chloride 97 mmol/L (96-108); Cholesterol 151 mg/dL (<200); Estimated Glomerular Filt Rate 30; HDL Cholesterol 39 mg/dL (>40); LDL Cholesterol Calculated 76 mg/dL (<100); Potassium 4.6 mmol/L (3.3-5.1); Sodium 132 mmol/L (135-145); Total Protein 7.5 g/dL (6.5-8.0); Triglycerides 184 mg/dL (<150)
[2024-03-07 14:33] LABS: Glucose Random 360 mg/dL (60-115)
== END 2024-03-07 09:56 | disposition home or self-care (01) ==
LOC: HO.CHCLDS 09:55
PROVIDERS: Visit Provider Student in an Organized Health Care Education/Training Program
DX: E11.9 Type 2 diabetes mellitus without complications (principal); E78.00 Pure hypercholesterolemia, unspecified; Z79.4 Long term (current) use of insulin
CPT/HCPCS: 36415; 80048; 80061; 80076

== ENCOUNTER 2024-05-07 09:33 | Outpatient (AMB) | payer OTHER, SELFPAY ==
[2024-05-07 09:35] VITALS: BP 148/80; PULSE 68; O2SAT 96; BMI 39.7
--- NOTE | 2024-05-07 09:35 | A.OFFVIS_ITS ---
Vital Signs 05/07/24 09:35 Height 5 ft 1 in Weight 210 lb BMI 39.7 BP 148/80 H Blood Pressure Location Rt brachial Position Sitting Pulse 68 Pulse Source Pulse Oximeter Pulse Oximetry (%) 96 Oxygen Delivery Method Room Air Intake Visit Reasons: 1 yr follow to rediscuss colonoscopy Intake Note: ESTABLISHED PATIENT Reason; 1 YR. Discuss colo. Changes/concerns? No significant GI concerns. Allergies Uhccnze-ZMR-SiC Reductase Inhibitor [FHCIEKZ-QAD-EQJ REDUCTASE INHIBITOR] Aller gy (Severe, Verified 05/07/24 09:36) SEVERE DIARRHEA HPI HPI 1 yr follow to rediscuss colonoscopy: Details: LAST VISIT 05/14/2023 Diverticulosis Constipation Plan Patient was encouraged to continue eating fruits and vegetables. Increase fiber in her diet. Patient was also encouraged to try probiotics if she can tolerate them. Patient was encouraged to increase fluid intake and activity to promote better bowel motility. I will see her in 1 year so we can discuss colonoscopy. Her last colonoscopy in January of 2023 with suboptimal prep to left colon and recommendation was to repeated in 1-2 years. Patient does have a family history of colorectal cancer. Will book colonoscopy when she returns in 1 year, sooner if clinically necessary. Patient is agreeable to this plan and verbalizes understanding of instructions. She was given the opportunity to ask questions and all questions answered. TODAY'S VISIT Patient is here today for follow-up. Patient is here to discuss going for colonoscopy. Last colonoscopy in 02/09/2023 with suboptimal prep. Positive family history of CRC. Denies history of sleep apnea. Denies any issues with anesthesia last colonoscopy. Patient is on low-dose aspirin. Denies melena, hematochezia, unintentional weight loss or ribbon like stools. Patient is on Lantus and glipizide. Patient also takes lisinopril. Patient denies dyspepsia, dysphagia or odynophagia. Denies any GI concerning symptoms here to discuss the prep. [facility] Medical History Diverticulosis Diabetes Elevated cholesterol HTN (hypertension) Restrictive lung disease Somnolence, daytime Snoring VIRI (obstructive sleep apnea) Dyspnea on exertion Obesity (BMI 35.0-39.9 without comorbidity) Surgical History Hx of cataract extraction H/O colonoscopy History of dilatation and curettage H/O: knee surgery Family History Mother Colon cancer Diabetes Heart disease Brother Colon cancer Father Angina at rest Social History Household Members: None Housing: Apartment Alcohol intake: never Patient Tobacco Use Status: Never used Tobacco Review of Systems Const Denies weight gain and Denies weight loss ENT Reports no additional complaints, Denies dysphagia and Denies odynophagia Card Reports no additional complaints Resp Reports no additional complaints GI Denies abdominal pain, Denies belching, Denies melena, Denies bloating, Denies change in bowel habits, Denies dysphagia, Denies excessive flatus, Denies d yspepsia, Denies heartburn, Denies diarrhea, Denies loose stools, Denies nausea, Denies odynophagia and Denies vomiting Musc Reports no additional complaints Neuro Reports no additional complaints Psych Reports no additional complaints Endo Reports no additional complaints Physical Exam Vital Signs: Last Vital Signs Pulse 68 05/07/24 09:35 BP 148/80 H 05/07/24 09:35 Pulse Ox 96 05/07/24 09:35 Oxygen Delivery Method Room Air 05/07/24 09:35 BMI result Body Mass Index 39.7 Const General: healthy appearing and no acute distress Nutritional Appearance: obese Orientation/consciousness: patient oriented x3 Resp Effort & Inspection: normal respiratory effort, able to speak in complete sentences, no tracheal deviation and symmetric chest movement Auscultation: clear to auscultation bilaterally Cardio Rate: regular rate GI Inspection: Yes normal to inspection, No distended and Yes obesity Palpation (GI): Soft to palpation, not firm, nontender and No hepatosplenomegaly present Auscultation: normal bowel sounds General: Yes no CVA tenderness Back/Spine/Pelvis Back: no CVA tenderness Skin General skin exam: elasticity normal, turgor normal and dry skin Neuro General: patient oriented x3 Psych Appearance: grossly normal Mental Status: mental status grossly normal Assessment & Plan Assessment & Plan (1) Screening for colon cancer: Code(s): Z12.11 - Encounter for screening for malignant neoplasm of colon Category: Medical (2) Diverticulosis: Code(s): K57.90 - Diverticulosis of intestine, part unspecified, without perforation or abscess without bleeding Category: Medical (3) Constipation: Code(s): K59.00 - Constipation, unspecified Qualifiers: Constipation type: slow transit constipation Qualified Code(s): K59.01 - Slow transit constipation Plan What to expect before during and after procedure discussed with patient. Patient will start Dulcolax for 1 week before the procedure. Patient will hold glipizide day before procedure when she will be doing clear liquid diet. Two nights and 1 night before half of the Lantus. Stressed the importance of good bowel prep with patient. Patient is on low-dose aspirin. No issues with anesthesia last colonoscopy. No history of sleep apnea. Positive history of CRC. Patient will be seen after the procedure. She will call our office if she will have any GI concerning symptoms. Patient is agreeable to current plan of care and verbalizes understanding of instructions. She was given the opportunity to ask questions and all questions answered. Thank you for allowing me to participate in her care Medications: New bisacodyl (Dulcolax (bisacodyl)) Start taking 2 tablet every night 7 days before the procedure and 1 day before procedure take 4 tablets at noon time followed by MiraLax prep 10 mg (2 x 5 mg) PO BEDTIME 16 tabs 0RF Z12.11 - Encounter for screening for malignant neoplasm of colon polyethylene glycol 3350 (Miralax) As directed by gastro[facility]ology department at [facility] 238 grams PO ONCE 238 grams 0RF Z12.11 - Encounter for screening for malignant neoplasm of colon Coding Level of Care Code Est Pt Level 3 (01666) Diagnoses Screening for colon cancer Z12.11 Diverticulosis K57.90 Slow transit constipation K59.01 Constipation type: slow transit constipation Time Spent (min) 30 Comment 20 minutes spent with patient and additional 10 minutes spent reviewing her records
== END 2024-05-07 14:11 | disposition home or self-care (01) ==
PROVIDERS: PCP Student in an Organized Health Care Education/Training Program; Visit Provider Nurse Practitioner Family
DX: Z01.818 Encounter for other preprocedural examination (principal); Z12.11 Encounter for screening for malignant neoplasm of colon; Z80.0 Family history of malignant neoplasm of digestive organs; K59.01 Slow transit constipation; K57.90 Diverticulosis of intestine, part unspecified, without perforation or abscess without bleeding
CPT/HCPCS: 99024

== ENCOUNTER → 2024-05-07 09:33 | Outpatient (BNVA) | payer OTHER, SELFPAY | PROVIDERS: PCP Student in an Organized Health Care Education/Training Program; Visit Provider Nurse Practitioner Family | DX: Z01.818 Encounter for other preprocedural examination (principal); K57.90 Diverticulosis of intestine, part unspecified, without perforation or abscess without bleeding; K59.01 Slow transit constipation | CPT/HCPCS: 99212 ==

== ENCOUNTER 2024-08-08 09:08 | Outpatient (REF) | payer OTHER, SELFPAY ==
--- NOTE | ~2024-08-08 | US_ITS ---
EXAMINATION: US PELVIS TRANSABDOMINAL AND TRANSVAGINAL HISTORY: N95.0 - Postmenopausal bleeding COMPARISON: Comparison is made with the prior examination dated 02/06/2022. TECHNIQUE: Transabdominal and endovaginal real-time 2D rivas-scale ultrasound was performed. FINDINGS: Uterus: The uterus is normal in size, measuring 9.5 x 1.6 x 5.3 cm. Myometrium has a normal echotexture. There is a left superior fibroid measuring 1.6 x 1.6 x 1.7 cm. There is a left uterine body fibroid measuring 2.0 x 1.5 x 1.9 cm. Endometrium: The endometrial stripe measures 20 mm in thickness and is heterogeneous with multiple cystic spaces noted. Right ovary: The right ovary is not identified. Left ovary: The left ovary measures 2.5 x 2.8 x 2.6 cm. The left ovary is normal in size and echotexture. There is a tubular appearing hypoechoic structure in the left adnexa, suggestive of a hydrosalpinx. Pelvic fluid: none. US/US pelvic and transvaginal IMPRESSION: 1. Thickened endometrium with multiple cystic spaces, suspicious for neoplasm. Tissue sampling is recommended. 2. Uterine fibroids as described. 3. Tubular hypoechoic structure in the left adnexa suggestive of hydrosalpinx. Electronically signed by: Kelby Cai MD 08/08/2024 01:45 PM EDT
--- OUTSIDE RECORDS SUMMARY | 2024-08-08 09:37 | XMS_ITS | Data Portability ---
Author Organization [place] - [facility], [facility] Address [address] [place] [address] Assessment Encounter Date Assessment Date Assessment LastModified by Organization Details LastModified Time 12/04/2023 12/04/2023 I am seeing the patient today under the supervision of Dr. Landeros Who was available but who did not see the patient. HPI: Patient comes in for recheck of bilateral knee pain. Has known osteoarthritis in the medial compartment of the knee(s). Been treated conservatively with cortisone injection to this point with 3 months relief of symptoms. No new injury or modalities. Past family, medical, social history and review of systems has been reviewed, updated and is located in the patient? s chart. Examination:The patient is well appearing and in no apparent distress. Alert and oriented x3. Vital signs per intake sheet. Examination of the bilateral knee reveals no effusion erythema or warmth. Decreased range of motion. Varus deformity. Point tender over the medial joint line. Calf soft and nontender. 4+/5 strength of knee flexion extension. Impression: Osteoarthritis, bilateral knee Plan: Nature of the diagnosis discussed with the patient today. Both surgical and nonsurgical options were reviewed. Conservative measures were discussed at length including but not limited to physical therapy, bracing, anti-inflammatori es and injection therapies. Please see the procedure note for documentation about the injection performed today. Follow-up with us in 3 months for discussion of continued conservative management versus surgical management. [email or web address] Not available 12/04/2023 15:12:58 03/06/2024 03/06/2024 I am seeing the patient today under the supervision of Dr. Landeros Who was available but who did not see the patient. HPI: Patient comes in for recheck of bilateral knee pain. Has known osteoarthritis in the medial compartment of the knee(s). Been treated conservatively with cortisone injection to this point with 3 months relief of symptoms. No new injury or modalities. Past family, medical, social history and review of systems has been reviewed, updated and is located in the patient? s chart. Examination:The patient is well appearing and in no apparent distress. Alert and oriented x3. Vital signs per intake sheet. Examination of the bilateral knee reveals no effusion erythema or warmth. Decreased range of motion. Varus deformity. Point tender over the medial joint line. Calf soft and nontender. 4+/5 strength of knee flexion extension. Impression: Osteoarthritis, bilateral knee Plan: Nature of the diagnosis discussed with the patient today. Both surgical and nonsurgical options were reviewed. Conservative measures were discussed at length including but not limited to physical therapy, bracing, anti-inflammatori es and injection therapies. Please see the procedure note for documentation about the injection performed today. Follow-up with us in 3 months for discussion of continued conservative management versus surgical management. [email or web address] Not available 03/05/2024 14:36:30 06/16/2024 06/16/2024 I am seeing the patient today under the supervision of Dr. Herrera who was available but who did not see the patient. HPI: Patient comes in for recheck of bilateral knee pain. Has known osteoarthritis in the medial compartment of the knee(s). Been treated conservatively with cortisone injection to this point with 3 months relief of symptoms. No new injury or modalities. Past family, medical, social history and review of systems has been reviewed, updated and is located in the patient? s chart. Examination:The patient is well appearing and in no apparent distress. Alert and oriented x3. Vital signs per intake sheet. Examination of the bilateral knee reveals no effusion erythema or warmth. Decreased range of motion. Varus deformity. Point tender over the medial joint line. Calf soft and nontender. 4+/5 strength of knee flexion extension. Impression: Osteoarthritis, bilateral knee Plan: Nature of the diagnosis discussed with the patient today. Both surgical and nonsurgical options were reviewed. Conservative measures were discussed at length including but not limited to physical therapy, bracing, anti-inflammatori es and injection therapies. Please see the procedure note for documentation about the injection performed today. Follow-up with us in 3 months for discussion of continued conservative management versus surgical management. Not available 06/16/2024 12:59:53 Plan of Treatment Reminders Order Date Submit Date Provider Last Modified By Organization Details Last Modified Time Details Appointments RECHECK 15 2024 01:15P M Chi Fierro PA-C Not available Not available Not available Lab None recorded . Referral None recorded . Procedures None recorded . Surgeries None recorded . Imaging None recorded . Medication Orders None recorded . Patient TargetsNo targets recorded. Patient InstructionsNo instructions recorded. Reason for Referral None Reported. Procedures Surgical History Date Name Laterality Status Provider Name and Address Organization Details Recorded Time 06/16/2024 JZKNEE INJ Frankie completed Chi Fierro PA-C [address] [facility], [place], [address], [facility] 06/16/2024 08:05:41 06/09/2024 JZKNEE INJ Frankie cancelled Chi Fierro PA-C [address] [place] [address], [phone], [facility] 06/09/2024 12:48:39 03/06/2024 JZKNEE INJ Frankie completed Chi Fierro PA-C [address] [place] [address], [phone], [facility] 03/05/2024 14:36:22 12/04/2023 JZKNEE INJ Frankie completed Chi Fierro PA-C [address] [place] [address], [phone], [facility] 12/04/2023 08:17:20 09/06/2023 Sports Knee 4&1 completed Chi Fierro PA-C [address] [place] [address], [phone], [facility] 09/06/2023 12:35:54 Imaging Results None recorded. Procedure Notes None recorded. Medical Equipment None Reported. Allergies No known drug allergies Medications Name Sig Start Date Stop Date Status Note LastModified by Organization Details LastModified Time medbox status USE DIRECTED active Not Available Not Available No t Available azithromyci n 250 mg tablet TAKE 2 TABLETS BY MOUTH ON DAY 1, THEN TAKE 1 TABLET DAILY ON DAYS 2-5 active Not Available Not Available No t Available ibuprofen 800 mg tablet TAKE 1 TABLET BY MOUTH THREE TIMES DAILY active Not Available Not Available No t Available glipizide 10 mg tablet TAKE TWO TABLETS TWICE DAILY IN THE MORNING AND EVENING active Not Available Not Available No t Available penicillin V potassium 500 mg tablet TAKE 2 TABLETS BY MOUTH FIRST TIME THEN 1 TABLET BY MOUTH EVERY 6 HOURS UNTIL FINISHED 07/10 completed Not Available Not Available Not Available triamterene 37.5 mg-hydrochl orothiazide 25 mg capsule TAKE ONE CAPSULE EVERY MORNING active Not Available Not Available No t Available prednisolon e acetate 1 % eye drops,suspe nsion instill 1 drop in Surgical eye FOUR times a day for 4 days; Bring bottle UNOPENED to [facility] on day of procedure 07/10 completed Not Available Not Available Not Available OneTouch Ultra Test strips TEST BLOOD SUGAR FOUR TIMES DAILY active Not Available Not Available No t Available gemfibrozil 600 mg tablet TAKE ONE TABLET IN THE MORNING AND EVENING active Not Available Not Available No t Available metformin 1,000 mg tablet TAKE ONE TABLET IN THE MORNING AND EVENING active Not Available Not Available No t Available lisinopril 10 mg tablet TAKE ONE TABLET EVERY EVENING active Not Available Not Available No t Available docusate sodium 100 mg capsule TAKE ONE CAPSULE EVERY NIGHT AT BEDTIME active Not Available Not Available No t Available sertraline 25 mg tablet TAKE ONE TABLET EVERY MORNING active Not Available Not Available No t Available aspirin 81 mg chewable tablet CHEW ONE TABLET EVERY EVENING active Not Available Not Available No t Available bisacodyl 5 mg tablet,johanne yed release START taking TWO tablet EVERY NIGHT AT BEDTIME SEVEN DAYS BEFORE THE PROCEDURE AND ONE DAY BEFORE PROCEDURE take FOUR tablets AT NOON TIME followed by MiraLax prep active Not Available Not Available No t Available polyethylen e glycol 3350 17 gram/dose oral powder MIX AND TAKE DIRECTED BY DOCTOR active Not Available Not Available No t Available albuterol sulfate HFA 90 mcg/actuati on aerosol inhaler INHALE TWO PUFFS EVERY 6 HOURS NEEDED FOR WHEEZING active Not Available Not Available No t Available fluticasone propionate 50 mcg/actuati on nasal spray,suspe nsion INHALE ONE OR TWO SPRAYS IN EACH NOSTRIL DAILY NEEDED 07/10 completed Not Available Not Available Not Available sodium fluoride 1.1 % dental gel APPLY THIN FILM TO ALL TEETH BEFORE BEDTIME NOTHING BY MOUTH FOR 30 MINUTES active Not Available Not Available No t Available loratadine 10 mg tablet TAKE ONE TABLET EVERY EVENING active Not Available Not Available No t Available amoxicillin 875 mg-potassiu m clavulanate 125 mg tablet TAKE 1 TABLET BY MOUTH TWICE DAILY FOR 7 DAYS active Not Available Not Available No t Available rosuvastati n 10 mg tablet TAKE ONE TABLET EVERY EVENING active Not Available Not Available No t Available Alcohol Prep Pads USE FIVE TIMES DAILY active Not Available Not Available No t Available omega-3 acid ethyl esters 1 gram capsule TAKE ONE CAPSULE IN THE MORNING AND EVENING active Not Available Not Available No t Available UltiCare Pen Needle 31 gauge x 5/16 USE ONE DAILY active Not Available Not Available No t Available Lantus Solostar U-100 Insulin 100 unit/mL (3 mL) subcutaneou s pen INJECT 35 UNITS SUBCUTANE OUSLY AT BEDTIME active Not Available Not Available No t Available cholecalcif teresa (vitamin D3) 50 mcg (2,000 unit) tablet TAKE ONE TABLET EVERY EVENING active Not Available Not Available No t Available Vitals Date Recorded Body height Body mass index (BMI) Body weight Provider Name and Address Organization Details Last Updated DateTime 07/11/2023 154.94 cm 37 kg/m2 64921.1 g KAYLIA L'HEUREUX [place] [facility] 07/11/2023 15:00:26 Date Recorded Body height Body mass index (BMI) Body weight Provider Name and Address Organization Details Last Updated DateTime 09/06/2023 154.94 cm 37 kg/m2 50919.1 g KAYLIA L'HEUREUX [place] [facility] 09/06/2023 15:53:34 Date Recorded Body height Body mass index (BMI) Body weight Provider Name and Address Organization Details Last Updated DateTime 12/04/2023 154.94 cm 37 kg/m2 71767.1 g KAYLIA L'HEUREUX [place] [facility] 12/04/2023 15:03:01 Date Recorded Body height Body mass index (BMI) Body weight Provider Name and Address Organization Details Last Updated DateTime 03/06/2024 154.94 cm 37 kg/m2 92627.1 g KAYLIA L'HEUREUX [facility] 03/06/2024 15:47:23 Date Recorded Body height Body mass index (BMI) Body weight Provider Name and Address Organization Details Last Updated DateTime 06/16/2024 154.94 cm 37 kg/m2 14716.1 g ELFEGO LEI [facility] 06/16/2024 12:53:55 Social History Question Answer Notes LastModified by Organizat ion Details LastModified Time Tobacco Smoking Status Never Smoker ELFEGO LEI [facility], [facility] 07/11/2023 15:03:03 What Is Your Level Of Alcohol Consumption? None Information not available 07/11/2023 What Is Your Relationship Status? Single Information not available 07/11/2023 Do You Use Any Illicit Or Recreational Drugs? No Information not available 07/11/2023 Do You Or Have You Ever Used Any Other Forms Of Tobacco Or Nicotine? No Information not available 07/11/2023 Sex: Unknown Functional Status None recorded. Mental Status None recorded. Family History Nothing Reported. Medical History Condition Response Allergies/Hayfever Y Coronary Artery Disease N Anxiety/Depression Y Breathing or lung disorders N Emphysema N Nerve Disorders N Thyroid Problems N COPD N Pacemaker N Anemia N Kidney/Bladder Problems N Vascular Disease N Heart Attack (MS) N Gastrointestinal Disease N Cholesterol Y Diabetes Y Autoimmune disease N Bleeding Disorder N Orthotics N Arthritis Y Seizures/Epilepsy N Blood Clot N AIDS/HIV N Congestive Heart Failure (CHF) N Acid Reflux (GERD) N Cancer N Stroke N Asthma N Circulation Problems N Peripheral Vascular Disease N Sleep Apnea Y Hepatitis N Heart Disease N Rheumatoid Arthritis N Arrhythmia N Pulmonary Embolism N Headaches N Fibromyalgia N Hypertension Y Osteoporosis N Gynecological HistoryNo gynecological history recorded. Obstetrics History GPAL:G 0 P 0 0 0 0 Past Encounters Encounter ID Performer Location Encounter Start Date Encounter Closed Date Diagnosis/Indication Diagnosis SNOMED-CT Code Diagnosis ICD10 Code Diagnosis Note [id number] JAIME Parikh [address] [place] [address] 07/11/2023 14:38:06 07/12/2023 07:58:16 Bilateral osteoarthritis of knees [id number] 29082 M17.0 [id number] Chi Fierro PA-C [place] [address] [place] [address] 09/06/2023 15:40:30 09/27/2023 15:02:46 Bilateral osteoarthritis of knees 5041049935 28946 M17.0 [id number] Chi Fierro PA-C [place] [address] [place] [address] 12/04/2023 14:49:34 12/28/2023 12:23:49 Bilateral osteoarthritis of knees [id number] 63394 M17.0 [id number] Chi Fierro PA-C [place] [address] [place] [address] 03/06/2024 15:41:03 04/07/2024 12:00:28 Primary gonarthrosis, bilateral [id number] M17.0 [id number] Chi Fierro PA-C [facility] [place] [address] [place] [address] 06/16/2024 12:48:05 06/30/2024 18:45:02 Primary gonarthrosis, bilateral [id number] M17.0 Health Concerns Section Related Observation LastModified by Organization Detai ls LastModified Time None Recorded Concern Status LastModified by Organization Details LastModified Time None Recorded Advance Directives Directive None Recorded Payers Encounter Date Sequence Insurance Name Policy Number Policy Collado Covered Member ID Collado Member ID Guarantor Name 07/11/2023 1 [facility] (MEDICARE REPLACEMENT/A DVANTAGE - HMO) Yuliet Underwood [id number] Yuliet Underwood 09/06/2023 1 [facility] (MEDICARE REPLACEMENT/A DVANTAGE - HMO) Yuliet Underwood [id number] Yuliet Underwood 12/04/2023 1 [facility] (MEDICARE REPLACEMENT/A DVANTAGE - HMO) Yuliet Underwood [id number] Yuliet Underwood 03/06/2024 1 [facility] (MEDICARE REPLACEMENT/A DVANTAGE - HMO) Yuliet Underwood [id number] Yuliet Underwood 06/16/2024 1 [facility] (MEDICARE REPLACEMENT/A DVANTAGE - HMO) Yuliet Underwood [id number] Yuliet Underwood Notes Date Note Type Note Provider Name and Address Organization Details Recorded Time 07/11/2023 text/html I am seeing the patient today under the supervision of Dr. Landeros who was available but who did not see the patient.HPI: Patient comes in for recheck of bilateral knee pain. Has known osteoarthritis in the medial compartment of the knees. Been treated conservatively with cortisone injection to this point with excellent relief of symptoms. No new injury or modalities.Interval History: The patient continues to feel benefit from cortisone injection last time. She has questions about potential arthroscopic surgery. She understands that this has helped her in the past but wants to make sure that she is weighing all of her options.Past family, medical, social history and review of systems has been reviewed, updated and is located in the patient? s chart.Examination:T he patient is well appearing and in no apparent distress. Alert and oriented x3. Vital signs per nurse's intake.Examination of the bilateral knees reveal no effusion erythema or warmth. Decreased range of motion. varus deformity. Point tender over the medial joint line. Calf soft and nontender. 4+/5 strength of knee flexion and extension.X-rays were reviewed today including 4 views of the bilateral knees showed narrowing of the medial compartment of the bilateral knee. With slight osteophyte formation. Narrowing is noted of patellofemoral joint as well. No evidence of any other bony lesions or pathology.Impression : Osteoarthritis bilateral kneesPlan: Nature of the diagnosis discussed with the patient today. Both surgical and nonsurgical options were reviewed. Discussed with her that arthroscopic chondral debridement would only be helpful in very mechanically based symptoms. Her knees are not bothering her at this point and therefore we will hold off on any formal treatment modalities. I did discuss total knee arthroplasty as her definitive treatment strategy. She will follow-up in 2 months for possible repeat knee cortisone injections.The patient understands and agrees with the plan. They know to call if they have any further questions or concerns regarding their symptoms, or to follow up sooner if needed. Chi Fierro PA-C [address] [facility] [address], [place], [address], [facility] 07/11/2023 15:31:47 09/06/2023 text/html I am seeing the patient today under the supervision of Dr. Mallory Who was available but who did not see the patient. HPI: Patient comes in for recheck of {{right left bilater al*}} knee pain. Has known osteoarthritis in the medial compartment of the knee(s). Been treated conservatively with cortisone injection to this point with 5 months relief of symptoms. Pain has returned over the past several weeks. The patient did have a fall off of a 1 step stoop which seems to exacerbate things. She is still able to weight-bear and does not feel any signs of instability. No new injury or modalities. Past family, medical, social history and review of systems has been reviewed, updated and is located in the patient? s chart. Examination:The patient is well appearing and in no apparent distress. Alert and oriented x3. Vital signs per intake sheet. Examination of the {{right left bilater al*}} knee reveals no effusion erythema or warmth. Decreased range of motion. {{No visible Slight varus* Varus}} deformity. Point tender over the medial joint line. Calf soft and nontender. 4+/5 strength of knee flexion extension. Impression: Osteoarthritis, {{left right bilater al*}} knee Plan: Nature of the diagnosis discussed with the patient today. Both surgical and nonsurgical options were reviewed. This point recommend a repeat cortisone injection. Patient agreed.After aseptic technique and consent the {{right left bilater al*}} knee(s) was injected with 1 cc of Kenalog-40 and 5 cc of 0.25% Marcaine. Patient tolerated the procedure well postinjection precautions were reviewed. Follow-up with us {{as needed in 3 months*}} for discussion of continued conservative management versus surgical management. Chi Fierro PA-C [address], [place], [address], [place] [facility] 09/06/2023 16:34:07 OBGyn Episode No OBEpisode recorded.
--- OUTSIDE RECORDS SUMMARY | 2024-08-08 09:37 | XMS_ITS | Encounter Summary ---
Author Organization [employer] Address [address] [facility] [address] [place] [address] Care Team Providers Care Learning Support Assistant Name Role Phone Daiana Trevino MD Primary Care Provider [phone] Reason for Visit * Reason Onset Date Comments Referral 03/01/2023 Encounter Details Date Type Department Care Team ([facility] st Contact Info) Description 03/01/[address] [facility] MEDICINE [address] [place] [address] Daiana Trevino MD [address] [place] [address] Referral Social History Tobacco Use Types Packs/Day Years Used Date Smoking Tobacco: Never Assessed Comments Unknown Sex and Gender Information Value Date Recorded Sex Assigned at Female 02/20/2022 10:18 AM EDT Legal Sex Female 10:18 AM EDT Gender Identity Female 02/20/2022 10:18 AM EDT Sexual Orientation Straight 02/20/2022 10 :18 AM EDT documented as of this encounter Miscellaneous Notes * Telephone Encounter - Daiana Trevino MD - 03/05/2023 10:13 AM EST Sent * Telephone Encounter - Marleny Muñoz - 03/01/2023 9:06 AM EST Tc from pt requesting renew on [facility] referral, pt have an appt today at 3:00PM forher Cortizone shot but was advise by office referral is . documented in this encounter Plan of Treatment Upcoming Encounters Date Type Department Care Team (Late st Contact Info) Description 08/08/2024 2:00 PM EDT Office Visit [facility] ADULT DENTAL [address] [place] [address] Luis Miguel Delatorre DMD [address] [place] [address] 10/22/2024 11:30 AM EDT Office Visit [facility] MED & PEDS [address] [place] [address] Daiana Trevino MD [address] [place] [address] documented as of this encounter Visit Diagnoses Not on filedocumented in this encounter Care Teams Learning Support Assistant Relationship Specialty Start Date End Date Daiana Trevino MD [address] [place] [address] PCP - General Family Medicine 04/04/12 documented as of this encounter
--- OUTSIDE RECORDS SUMMARY | 2024-08-08 09:37 | XMS_ITS | Encounter Summary ---
Author Organization [employer] Address [address] [facility] [address] [place] [address] Care Team Providers Care Financial Analyst Accountant Name Role Phone Daiana Trevino MD Primary Care Provider [phone] Encounter Details Date Type Department Care Team (Latest Contact Info) Description 01/02/2020 Abstract [facility] CONVERSIONS Dental, Provider, DDS Social History Tobacco Use Types Packs/Day Years Used Date Smoking Tobacco: Never Assessed Comments Unknown Sex and Gender Information Value Date Recorded Sex Assigned at Female 02/20/2022 10:18 AM EDT Legal Sex Female 10:18 AM EDT Gender Identity Female 02/20/2022 10:18 AM EDT Sexual Orientation Straight 02/20/2022 10 :18 AM EDT documented as of this encounter Plan of Treatment Upcoming Encounters Date Type Department Care Team (Late st Contact Info) Description 08/08/2024 2:00 PM EDT Office Visit [facility] ADULT DENTAL [address] [place] [address] Luis Miguel Delatorre DMD [address] [place] [address] 10/22/2024 11:30 AM EDT Office Visit [facility] MED & PEDS [address] [place] [address] Daiana Trevino MD [address] [place] [address] documented as of this encounter Visit Diagnoses Not on filedocumented in this encounter Care Teams Financial Analyst Accountant Relationship Specialty Start Date End Date Daiana Trevino MD [address] [place] [address], [place] [address] PCP - General Family Medicine 04/04/12 documented as of this encounter
--- OUTSIDE RECORDS SUMMARY | 2024-08-08 09:37 | XMS_ITS | Encounter Summary ---
Author Organization [employer] Address [address] [facility] 7t [place] [address] Care Team Providers Care Public Address System Operator Name Role Phone Daiana Trevino MD Primary Care Provider [phone] Reason for Visit * Reason Onset Date Comments Referral 03/21/2023 Encounter Details Date Type Department Care Team ([facility] st Contact Info) Description 03/21/2023 Telephone [facility] [address] [place], [place] [phone] Daiana Trevino MD [address] [place] [address] Referral Social History Tobacco Use Types Packs/Day Years Used Date Smoking Tobacco: Never Assessed Comments Unknown Sex and Gender Information Value Date Recorded Sex Assigned at Female 02/20/2022 10:18 AM EDT Legal Sex Female 10:18 AM EDT Gender Identity Female 02/20/2022 10:18 AM EDT Sexual Orientation Straight 02/20/2022 10 :18 AM EDT documented as of this encounter Miscellaneous Notes * Telephone Encounter - Jessica Negron - 03/21/2023 4:39 PM EST Referral faxed to [facility] at number provided. 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 facility and needs a renewal on referral due to previous referral expiring in September [facility] documented in this encounter Plan of Treatment Upcoming Encounters Date Type Department Care Team (Late st Contact Info) Description 08/08/2024 2:00 PM EDT Office Visit [facility] [address] [place], [place] [phone] Luis Miguel Delatorre DMD [address] [place], [place] [phone] 10/22/2024 11:30 AM EDT Office Visit [facility] MED & PEDS [address] [place], [place] [phone] Daiana Trevino MD [address] [place], [place] [phone] documented as of this encounter Visit Diagnoses Not on filedocumented in this encounter Care Teams Public Address System Operator Relationship Specialty Start Date End Date Daiana Trevino MD [address] [place] [phone] PCP - General Family Medicine 04/04/12 documented as of this encounter
--- OUTSIDE RECORDS SUMMARY | 2024-08-08 09:37 | XMS_ITS | Encounter Summary ---
Author Organization [employer] Address [address] [facility] [address] 7[address] [place] [address] Care Team Providers Care Die Maker Bench Stamping Name Role Phone Daiana Trevino MD Primary Care Provider [phone] Reason for Visit * Reason Comments Med Refill Encounter Details Date Type Department Care Team ([facility] st Contact Info) Description 03/12/2024 Refill [facility] MED & PEDS [address] [place], [place] [phone] Daiana Trevino MD 505 [place] [address] Social History Tobacco Use Types Packs/Day Years Used Date Smoking Tobacco: Never Smokeless Tobacco: Never Alcohol Use Standard Drinks/Week Comments Never 0 (1 standard drink = 0.6 oz pur e alcohol) Depression Answer Date Recorded Patient Health Questionnaire-9 Score 5 06/20/2023 Patient Health Questionnaire-9 Score 5 06/20/2023 Last PHQ-9: Questionnaire Data Not on file 0 06/20/2023 Housing Stability Answer Date Recorded What is your housing situation today? I have shaina copeland 06/13/[address] you li ve. Do you have problems with any of the following? None of the above 06/13/2023 Food Insecurity Answer Date Recorded Within the past 12 months, y ou worried that your food would run out before you got money to buy more: Never True 06/13/2023 Within the past 12 months,th e food you bought just didn't last and you didn't have enough money to get more: Never True Transportation Answer Date Recorded In the past 12 months, has l ack of transportation kept you from medical appts, meetings, work or from getting things needed for daily living? No 06/13/2023 Utilities Answer Date Recorded In the past 12 months, has t he electric, gas, oil or water company threatened to shut off services in your home? No 06/13/2023 Depression Answer Date Recorded Patient Health Questionnaire-2 Score 3 06/20/2023 Comments No Sex and Gender Information Value Date Recorded Sex Assigned at Female 02/20/2022 10:18 AM EDT Legal Sex Female 10:18 AM EDT Gender Identity Female 02/20/2022 10:18 AM EDT Sexual Orientation Straight 02/20/2022 10 :18 AM EDT documented as of this encounter Plan of Treatment Upcoming Encounters Date Type Department Care Team (Late st Contact Info) Description 08/08/2024 2:00 PM EDT Office Visit [facility] ADULT DENTAL [address] [place] [address] Luis Miguel Delatorre DMD 505 [place] [address] 10/22/2024 11:30 AM EDT Office Visit [facility] MED & PEDS [address] [place] [address] Daiana Trevino MD [address] [place] [address] documented as of this encounter Visit Diagnoses Not on filedocumented in this encounter Additional Health Concerns Assessment Noted Time PHQ-9 Depression Total Score: 5 06/20/19 24 9:37 AM EST documented as of this encounter Care Teams Die Maker Bench Stamping Relationship Specialty Start Date End Date Daiana Trevino MD [address] [place] [address] PCP - General Family Medicine 04/04/12 documented as of this encounter
--- OUTSIDE RECORDS SUMMARY | 2024-08-08 09:37 | XMS_ITS | Encounter Summary ---
Author Organization [employer] Address [address] [facility] 7t [place] [address] Care Team Providers Care Bale Sewer Name Role Phone Daiana Trevino MD Primary Care Provider [phone] Encounter Details Date Type Department Care Team (Late st Contact Info) Description 12/27/2022 Orders Only [facility] MED & PEDS [address] [place] [address] Shannen Kerr LPN Social History Tobacco Use Types Packs/Day Years [...] Description 08/08/2024 2:00 PM EDT Office Visit [facility] ADULT DENTAL [address] [place] [address] Luis Miguel Delatorre DMD [address] [place] [address] 10/22/2024 11:30 AM EDT Office Visit [facility] MED & PEDS [address] [place] [address] Daiana Trevino MD 505 [place] [address] documented as of this encounter Visit Diagnoses Not on filedocumented in this encounter Care Teams Bale Sewer Relationship Specialty Start Date End Date Daiana Trevino MD [address] [place] [phone] PCP - General Family Medicine 04/04/12 documented as of this encounter
--- OUTSIDE RECORDS SUMMARY | 2024-08-08 09:37 | XMS_ITS | Encounter Summary ---
Author Organization [employer] Address [address] [facility] 7t [place] [address] Care Team Providers Care Freight Caller Name Role Phone Daiana Trevino MD Primary Care Provider Encounter Details Date Type Department Care Team (Late st Contact Info) Description 08/18/2022 Orders Only [facility] [address] [place] [address] Melanie Henson LPN Social History Tobacco Use Types Packs/Day [...] Description 08/08/2024 2:00 PM EDT Office Visit [facility] ADULT [facility] [address] [place] [address] Luis Miguel Delatorre DMD 505 [place] [address] 10/22/2024 11:30 AM EDT Office Visit [facility] [address] [place] [address] Daiana Trevino MD 505 [place] [address] documented as of this encounter Visit Diagnoses Not on filedocumented in this encounter Care Teams Freight Caller Relationship Specialty Start Date End Date Daiana Trevino MD [address] [place] [id number] PCP - General Family Medicine 04/04/12 documented as of this encounter
--- OUTSIDE RECORDS SUMMARY | 2024-08-08 09:37 | XMS_ITS | Clinical Summary ---
Author Organization [employer] Address [address] [facility] 7t [place] [address] Care Team Providers Care Verifier Name Role Phone Daiana Trevino MD Primary Care Provider [phone] Allergies No known active allergies Medications fluticasone (Flonase) 50 MCG/ACT nasal spray INHALE ONE OR TWO SPRAYS IN EACH NOSTRIL DAILY NEEDED 16 g 3 07/25/19 23 Active Aspirin Low Dose 81 MG chewable tablet CHEW ONE TABLET EVERY EVENING 30 tablet 11 12/22/19 24 Active omega-3 acid ethyl esters (Lovaza) 1 g capsule TAKE ONE CAPSULE IN THE MORNING AND EVENING 60 capsule 11 12/22/19 24 Active gemfibrozil (Lopid) 600 MG tablet TAKE ONE TABLET IN THE MORNING AND EVENING 60 tablet 11 12/22/19 24 Active Alcohol Swabs (Alcohol Prep) 70 % pads USE FIVE TIMES DAILY 100 each 5 12/25/19 24 Active glipiZIDE (Glucotrol) 10 MG tablet TAKE TWO TABLETS TWICE DAILY IN THE MORNING AND EVENING 120 tablet 11 02/11/20 24 Active triamterene-h ydroCHLOROthi azide (Dyazide) 37.5-25 MG capsule TAKE ONE CAPSULE EVERY MORNING 30 capsule 11 02/11/20 24 Active Lantus SoloStar 100 UNIT/ML penIndication s:Type 2 diabetes mellitus without complication, without long-term current use of insulin (CMS/HCC) INJECT 35 UNITS SUBCUTANEOUSLY AT BEDTIME 15 mL 2 03/14/20 24 Active insulin pen needle (UltiCare Short Pen [place]) 31G X 8 mm miscIndicatio ns:Type 2 diabetes mellitus without complication, without long-term current use of insulin (CMS/HCC) USE ONE DAILY 100 each 5 03/14/20 24 Active glucose blood (OneTouch Ultra Test) test stripIndicati ons:Type 2 diabetes mellitus without complication, without long-term current use of insulin ([facility]) TEST BLOOD SUGAR FOUR TIMES DAILY 100 strip 5 03/14/20 24 Active loratadine (Claritin) 10 MG tablet TAKE ONE TABLET EVERY EVENING 30 tablet 5 03/24/20 24 Active rosuvastatin (Crestor) 10 MG tablet TAKE ONE TABLET EVERY EVENING 90 tablet 05/23/19 25 Active albuterol 108 (90 Base) MCG/ACT inhaler Inhale 2 puffs every 6 (six) hours if needed for wheezing. 18 g 05/28/19 25 2025 Active cholecalcifer ol VITAMIN D (Vitamin D-3) 50 MCG (1999) tabletIndicat ions:Type 2 diabetes mellitus without complication, without long-term current use of insulin ([facility]) TAKE ONE TABLET EVERY EVENING 30 tablet 11 06/17/19 25 Active metFORMIN (Glucophage) 1000 MG tabletIndicat ions:Type 2 diabetes mellitus without complication, without long-term current use of insulin ([facility]) TAKE ONE TABLET IN THE MORNING AND EVENING 180 tablet 1 06/17/19 25 Active Docusate Sodium (DSS) 100 MG capsule TAKE ONE CAPSULE EVERY NIGHT AT BEDTIME Active sertraline (Zoloft) 25 MG tablet TAKE 1 TABLET BY MOUTH EVERY MORNING 30 tablet 07/23/19 25 Active lisinopril 10 MG tablet TAKE ONE TABLET EVERY EVENING 90 tablet 07/23/19 25 Active lisinopril 10 MG tablet TAKE ONE TABLET EVERY EVENING 90 tablet 3 07/27/19 24 2024 Discontinued sertraline (Zoloft) 25 MG tablet TAKE ONE TABLET EVERY MORNING 30 tablet 06/20/19 25 2024 Discontinued Active Problems Problem Noted Date Diagnosed Date Obesity, morbid 05/28/2024 Diverticulosis 06/20/2023 Other sleep apnea 06/20/2023 Hypertensive disorder 01/28/2014 Hypercholesterolemia 12/25/2012 Type II diabetes mellitus 12/25/2012 Encounters Date Type Department Care Team Description 07/16/2024 3:00 PM EDT Office Visit [facility] ADULT DENTAL [address] [place] [address] Juan Ramon, Luis Miguel, DMD Periodontal disease (Primary Dx); Dental caries 07/16/2024 Refill [facility] MED & PEDS [address] [place] [address] Daiana Trevino MD 07/10/2024 Travel 07/09/2024 3:00 PM EDT Office Visit [facility] ADULT DENTAL [address] [place] [address] Luis Miguel Delatorre DMD Periodontal disease (Primary Dx); Dental caries 06/25/2024 3:00 PM EST Office Visit [facility] ADULT DENTAL [address] [place] [address] Aurelia Lord Periodontal disease (Primary Dx); Dental caries 06/19/2024 Telephone [facility] MED & PEDS [address] [place] [address] Daiana Trevino MD No Show 06/18/2024 Refill [facility] MED & PEDS [address] [place] [address] Nikolai Napier MD 06/17/2024 Refill [facility] MED & PEDS [address] [place] [address] Daiana Trevino MD Type 2 diabetes mellitus without complication, without long-term current use of insulin ([facility]) 06/15/2024 Refill [facility] MED & PEDS [address] [place] [address] Daiana Trevino MD Type 2 diabetes mellitus without complication, without long-term current use of insulin (CMS/HCC) 05/28/2024 11:15 AM EST Office Visit [facility] MED & PEDS [address] [place] [address] Ann-Marie Sage MD Obesity, morbid (CMS/HCC) (Primary Dx); Type 2 diabetes mellitus without complication, with long-term current use of insulin (CMS/HCC); Atypical pneumonia 05/28/2024 Travel 05/26/2024 Telephone [facility] MEDICINE [address] [place] [address] Daiana Trevino MD Nurse Triage 05/21/2024 Refill [facility] MED & PEDS [address] [place] [address] Kim Patterson MD 05/21/2024 Refill [facility] MED & PEDS [address] [place] [address] Daiana Trevino MD from Last 3 Months Immunizations Name Administration Dates Next Due Influenza, IIV3, injectable 01/28/2014 Influenza, Split (incl. purified surface antigen ) 03/26/2013,01/19/2012 Pfizer Covid-19 Vaccine 12+ 01/14/2024, 3 Pneumococcal Conjugate PCV 20 06/20/2023 Pneumococcal Polysaccharide PPSV23 01/08/2006 TD (adult), 2 Lf tetanus tox oid, preservative free, adsorbed 02/18/2007 Tdap 06/12/2017 Social History Tobacco Use Types Packs/Day Years Used Date Smoking Tobacco: Never Passive Smoke Exposure: Never Smokeless Tobacco: Never Tobacco Cessation:Counseling Given: Not Answered Alcohol Use Standard Drinks/Week Comments Never 0 [...] Orientation Straight 02/20/2022 10 :18 AM EDT Last Filed Vital Signs Vital Sign Reading Time Taken Comments Blood Pressure 124/82 07/16/2024 3:14 PM EDT Pulse 83 05/28/2024 11:24 AM EST Temperature 36.5 ??C (97.7 ??F) 05/28/2024 11:[address] Respiratory Rate 24 05/28/2024 11:24 AM EST Oxygen Saturation 97% 05/28/2024 11:24 AM EST Inhaled Oxygen Concentration - - Weight 90.3 kg (199 lb) 05/28/2024 11:24 AM EST Height 154.9 cm (5' 1 ) 05/28/2024 11:24 AM EST Body Mass Index 37.6 05/28/2024 11:24 AM EST Plan of Treatment Upcoming Encounters Date Type Department Care Team (Late st Contact Info) Description 08/08/2024 2:00 PM EDT Office Visit [facility] ADULT DENTAL [address] [place] [address] Luis Miguel Delatorre DMD [address] [place] [address] 10/22/2024 11:30 AM EDT Office Visit [facility] MED & PEDS [address] [place] [address] Daiana Trevino MD [address] [place] [address] Health Maintenance Due Date Last Done Comments Eye Exam 10/15/1955 Alcohol/Substance Use Screening 1957 Hepatitis C Screening 10/15/1963 Diabetes: Urine Protein Screening 1964 Zoster Vaccines (1 of 2) 10/15/1995 RSV Patients and Patients Aged 60 years or older (1 - 1-dose 75+ series) 2020 Influenza Vaccine (#1) 2023 , 03/26/2013, 01/19/2012 Diabetes: Hemoglobin A1C 04/29/2024 024, 06/20/2023, 06/20/2023, Additional history exists Depression Screening 06/20/2024 06/20/2023, 06/20/19 Diabetes: Foot Exam 06/20/2024 06/20/2023, 06/20/2023, 06/20/2023, Additional history exists SDOH Screening 06/20/2024 06/20/2023 Dental X-Ray: Bitewings 11/22/2024 11/22/19 24, 06/02/2021, 01/02/2020, Additional history exists Dental Oral Exam 12/27/2024 06/25/2024, 04/2023, 01/02/2020, Additional history exists Dental Prophylaxis 12/27/2024 06/25/2024, 0 11/22/2023, 06/22/2008 Lipid Panel 03/07/2025 03/07/2024, 05/25, 02/14/2022, Additional history exists Tobacco Screening 07/16/2025 07/16/2024 DTaP/Tdap/Td Vaccines (2 - Td or Tdap) 06/12/2027 06/12/2017, 02/18/2007 Dental X-Ray: Full Mouth 07/11/2027 025, 11/22/2023, 01/02/2020 Pneumococcal Vaccine: 50+ Years Completed 06/20/2023, 01/08/2006 COVID-19 Vaccine Completed 01/14/2024, 05/2022, 03/14/2022, Additional history exists HIB Vaccines Aged Out No longer eligi ble based on patient's age to complete this topic HPV Vaccines Aged Out No longer eligi ble based on patient's age to complete this topic Hepatitis A Vaccines Aged Out No long er eligible based on patient's age to complete this topic Hepatitis B Vaccines Aged Out No long er eligible based on patient's age to complete this topic IPV Vaccines Aged Out No longer eligi ble based on patient's age to complete this topic Meningococcal Vaccine Aged Out No adriana sosa eligible based on patient's age to complete this topic RSV under 20 months Aged Out No longe r eligible based on patient's age to complete this topic Rotavirus Vaccines Aged Out No longer eligible based on patient's age to complete this topic Procedures Procedure Name Priority Date/Time Associated Diagnosis Comments 20 EXTRACTION, ERUPTED TOOTH OR EXPOSED ROOT (ELEVATION/FORCEPS REMOVAL) Routine 07/16/2024 3:00 PM EDT Periodontal disease Dental caries 28 EXTRACTION, ERUPTED TOOTH OR EXPOSED ROOT (ELEVATION/FORCEPS REMOVAL) Routine 07/16/2024 3:00 PM EDT Periodontal disease Dental caries 17 EXTRACTION, ERUPTED TOOTH OR EXPOSED ROOT (ELEVATION/FORCEPS REMOVAL) Routine 07/16/2024 3:00 PM EDT Periodontal disease Dental caries LIMITED ORAL EVALUATION - PROBLEM FOCUSED Routine 07/09/2024 3:00 PM EDT Periodontal disease Dental caries PANORAMIC RADIOGRAPHIC IMAGE Routine 07/09/2024 3:00 PM EDT Periodontal disease Dental caries PERIODIC ORAL EVALUATION - ESTABLISHED PATIENT Routine 06/25/2024 3:00 PM EST Periodontal disease Dental caries ORAL HYGIENE INSTRUCTIONS Routine 06/25/2024 3:00 PM EST Periodontal disease Dental caries PROPHYLAXIS - ADULT Routine 06/25/2024 3 :00 PM EST Periodontal disease Dental caries LIPID PANEL, STANDARD Routine 03/07/2024 9:57 AM EST Type 2 diabetes mellitus without complication, with long-term current use of insulin ([facility]) Hypercholesterolemi a POCT GLYCATED HEMOGLOBIN, TOTAL Routine 01/28/2024 11:55 AM EDT Type 2 diabetes mellitus without complication, with long-term current use of insulin ([facility]) INTRAORAL - COMPLETE SERIES OF RADIOGRAPHIC IMAGES Routine 11/22/2023 1:00 PM EDT from Last 3 Months or Most Recently Relevant to Health Maintenance Results * (ABNORMAL) Lipid Panel, Standard (03/07/2024 9:57 AM EST) Triglycerides 184(H) <150 mg/dL [facility] Comment:Desirable Triglyceri de: less than 150 mg/dLBorderline High Triglyceride 150-199 mg/dLHigh Triglyceride: 200-499 mg/dLVery High Triglyceride: greater than or equal to 5OO mg/dL Cholesterol 151 <200 mg/dL [facility] Comment:Desirable Cholestero l: less than 200 mg/dLBorderline High Cholesterol: 200-239 mg/dLHigh Cholesterol: greater than 239 mg/dL LDL Cholesterol Calculated 76 <100 mg/dL [facility] Comment:Desirable LDL: less than 100 mg/dLNear Optimal/Above Optimal LDL: 110- 129 mg/dLBorderline High LDL: 130-159 mg/dLHigh LDL: 160-189 mg/dLVery High LDL: greater than or equal to 190 mg/dL HDL Cholesterol 39(L) >40 mg/dL [facility] Comment:Desirable HDL: great er than 40 mg/dL Note: This HDL assay may give artificially low results in patients with liver disease. Blood Venous blood specimen / Unknown 03/07/2024 9:57 AM EST 03/07/2024 2:04 PM EST Daiana Trevino MD LAB BLOOD ORDERABLES Final Resul t [facility] [address] [place] [address] [phone] * (ABNORMAL) POCT HGB A1C (01/28/2024 11:55 AM EDT) Hemoglobin A1C 8.5(A) 4.0 - 6.0 % QC Media Lot # [id number] Lot# Expiration Date [id number] Blood 01/28/2024 11:5 5 AM EDT Daiana Trevino MD POINT OF CARE TEST ENTER/EDIT OR DERABLES Final Result from Last 3 Months or Most Recently Relevant to Health Maintenance Insurance [facility] - [facility] Care Teams Verifier Relationship Specialty Start Date End Date Daiana Trevino MD [address] [place] [phone] PCP - General Family Medicine 04/04/12
--- OUTSIDE RECORDS SUMMARY | 2024-08-08 09:37 | XMS_ITS | Encounter Summary ---
Author Organization [employer] Address [address] [facility] [address] [place] [address] Care Team Providers Care Sales Agent Name Role Phone Daiana Trevino MD Primary Care Provider Encounter Details Date Type Department Care Team ([facility] st Contact Info) Description 03/07/2024 Orders Only [facility] MED & PEDS [address] [place] [address] Daiana Trevino MD [address] [place] [address] Social History Tobacco Use Types Packs/Day Years [...] Description 08/08/2024 2:00 PM EDT Office Visit [facility] ADULT DENTAL [address] [place] [address] Luis Miguel Delatorre DMD [address] [place] [address] 10/22/2024 11:30 AM EDT Office Visit [facility] MED & PEDS [address] [place] [address] Daiana Trevino MD [address] [place] [address] documented as of this encounter Visit Diagnoses Not on filedocumented in this encounter Additional Health Concerns Assessment Noted Time PHQ-9 Depression Total Score: 5 06/20/19 24 9:37 AM EST documented as of this encounter Care Teams Sales Agent Relationship Specialty Start Date End Date Daiana Trevino MD [address] [place] [phone] PCP - General Family Medicine 04/04/12 documented as of this encounter
--- OUTSIDE RECORDS SUMMARY | 2024-08-08 09:37 | XMS_ITS | Encounter Summary ---
Author Organization [employer] Address [address] [facility] 7t [place] [address] Care Team Providers Care Electronic Warfare Specialist Name Role Phone Daiana Trevino MD Primary Care Provider [phone] Encounter Details Date Type Department Care Team (Late st Contact Info) Description 02/27/2023 Orders Only [facility] MED & PEDS [address] [place] [address] Shannen Kerr LPN Social History Tobacco Use [...] Description 08/08/2024 2:00 PM EDT Office Visit [facility] ADULT DENTAL [address] [place] [address] Luis Miguel Delatorre DMD [address] [place] [address] 10/22/2024 11:30 AM EDT Office Visit [facility] MED & PEDS [address] [place] [address] Daiana Trevino MD [address] [place] [address] documented as of this encounter Visit Diagnoses Not on filedocumented in this encounter Care Teams Electronic Warfare Specialist Relationship Specialty Start Date End Date Daiana Trevino MD [address] [place] [address] PCP - General Family Medicine 04/04/12 documented as of this encounter
--- OUTSIDE RECORDS SUMMARY | 2024-08-08 09:37 | XMS_ITS | Encounter Summary ---
Author Organization [employer] Address [address] [place] [address] Care Team Providers Care Advertising Representative Name Role Phone Daiana Trevino MD Primary Care Provider [phone] Reason for Visit * Reason Onset Date Comments Med Refill 03/12/2024 Encounter Details Date Type Department Care Team ([facility] Contact Info) Description 03/12/2024 Telephone [facility] CHC MED & PEDS [address] [place], [place] [phone] Daiana Trevino MD [address] [place] [address] Med Refill Social History Tobacco Use Types Packs/Day Years [...] encounter Miscellaneous Notes * Telephone Encounter - Shannen Kerr LPN - 03/12/2024 10:43 AM EST Medication pended to PCP. * Telephone Encounter - Rachel Wells - 03/12/2024 10:40 AM EST TC from pt requesting medication refill. Medications needing refill : insulin glargine (Lantus SoloStar) 100 UNIT/ML pen To be sent to: [facility] - [place], [place] - [address] [place] [address] documented in this encounter Plan of Treatment Upcoming Encounters Date Type Department Care Team ([facility] st Contact Info) Description 08/08/2024 2:00 PM EDT Office Visit [facility] ADULT DENTAL [address] [place] [address] Luis Miguel Delatorre DMD [address] [place] [address] 10/22/2024 11:30 AM EDT Office Visit [facility] MED & PEDS [address] [place] [address] Daiana Trevino MD [address] [place] [address] documented as of this encounter Visit Diagnoses Not on filedocumented in this encounter Additional Health Concerns Assessment Noted Time PHQ-9 Depression Total Score: 5 06/20/19 24 9:37 AM EST documented as of this encounter Care Teams Advertising Representative Relationship Specialty Start Date End Date Daiana Trevino MD [address] [place] [address] PCP - General Family Medicine 04/04/12 documented as of this encounter
--- OUTSIDE RECORDS SUMMARY | 2024-08-08 09:37 | XMS_ITS | Encounter Summary ---
Author Organization [employer] Address [address] [place] [address] Care Team Providers Care Hvac Refrigeration Technician Name Role Phone Daiana Trevino MD Primary Care Provider [phone] Reason for Visit * Reason Onset Date Comments Appointment Request 04/05/2023 Encounter Details Date Type Department Care Team (Late st Contact Info) Description 04/05/2023 Telephone [facility] MEDICINE [address] [place], [place] [phone] Daiana Trevino MD [address] [place], [place] [phone] Appointment Request Social History Tobacco Use Types Packs/Day Years Used Date Smoking Tobacco: Never Assessed Comments Unknown Sex and Gender Information Value Date Recorded Sex Assigned at Female 02/20/2022 10:18 AM EDT Legal Sex Female 10:18 AM EDT Gender Identity Female 02/20/2022 10:18 AM EDT Sexual Orientation Straight 02/20/2022 10 :18 AM EDT documented as of this encounter Miscellaneous Notes * Telephone Encounter - Nba Mccormick - 04/05/2023 2:46 PM EST Tc from [place] with [facility] insurance requesting a PE appt for program Please contact pt @ [phone] documented in this encounter Plan of Treatment Upcoming Encounters Date Type Department Care Team (Late st Contact Info) Description 08/08/2024 2:00 PM EDT Office Visit [facility] CHC ADULT DENTAL [address] [place], [place] [phone] Luis Miguel Delatorre DMD [address] [place] [address] 10/22/2024 11:30 AM EDT Office Visit [facility] CHC MED & PEDS [address] [place], [place] [phone] Daiana Trevino MD [address] [place] [address] documented as of this encounter Visit Diagnoses Not on filedocumented in this encounter Care Teams Hvac Refrigeration Technician Relationship Specialty Start Date End Date Daiana Trevino MD [address] [place] [id number] PCP - General Family Medicine 04/04/12 documented as of this encounter
--- OUTSIDE RECORDS SUMMARY | 2024-08-08 09:37 | XMS_ITS | Encounter Summary ---
Author Organization [employer] Address [address] [place] [address] Care Team Providers Care Sheriffs Detective Name Role Phone Daiana Trevino MD Primary Care Provider [phone] Reason for Visit * Reason Comments Med Refill Encounter Details Date Type Department Care Team ([facility] st Contact Info) Description 03/12/2024 Refill [facility] CHC MED & PEDS [address] [place], [place] [phone] Daiana Trevino MD [address] [place] [address] Type 2 diabetes mellitus without complication, without long-term current use of insulin ([facility]) Social History Tobacco Use Types Packs/Day Years [...] Kerr LPN - 03/12/2024 10:43 AM EST Last seen 01/03/24. documented in this encounter Plan of Treatment Upcoming Encounters Date Type Department Care Team (Late st Contact Info) Description 08/08/2024 2:00 PM EDT Office Visit [facility] ADULT DENTAL [address] [place] [address] Luis Miguel Delatorre DMD [address] [place] [address] 10/22/2024 11:30 AM EDT Office Visit [facility] MED & PEDS [address] [place] [address] Daiana Trevino MD [address] [place] [address] documented as of this encounter Visit Diagnoses Diagnosis Type 2 diabetes mellitus without complication, without long-term current use of insulin ([facility]) documented in this encounter Additional Health Concerns Assessment Noted Time PHQ-9 Depression Total Score: 5 06/20/19 24 9:37 AM EST documented as of this encounter Care Teams Sheriffs Detective Relationship Specialty Start Date End Date Daiana Trevino MD [address] [place] [address], [place] [address] PCP - General Family Medicine 04/04/12 documented as of this encounter
== END 2024-08-08 09:09 | disposition home or self-care (01) ==
LOC: HO.US 09:08
PROVIDERS: PCP Student in an Organized Health Care Education/Training Program; Visit Provider Obstetrics & Gynecology
DX: N95.0 Postmenopausal bleeding (principal)
CPT/HCPCS: 76830; 76856

== ENCOUNTER → 2024-08-08 12:53 | Outpatient (BNV) | payer OTHER, SELFPAY | PROVIDERS: PCP Student in an Organized Health Care Education/Training Program; Visit Provider Radiology Diagnostic Radiology | DX: N85.00 Endometrial hyperplasia, unspecified (principal); D25.9 Leiomyoma of uterus, unspecified; N83.522 Torsion of left fallopian tube | CPT/HCPCS: 76830; 76856 ==

== ENCOUNTER 2024-08-10 01:12 | Emergency (ER) | payer OTHER, SELFPAY ==
--- NOTE | ~2024-08-10 | CT_ITS ---
CLINICAL HISTORY: LLQ pain, US 2 days: fibroids, neoplasm suspicion CT abdomen and pelvis with contrast Comparison: None Findings: No consolidation or effusion. No focal hepatic lesion identified. The gallbladder, pancreas, spleen and adrenal glands are within normal limits. Kidneys enhance symmetrically and are non hydronephrotic. No bowel obstruction, pneumoperitoneum, or pneumatosis. Fluid-filled peripherally enhancing tubular structure in the left adnexa extends to left ovary. Left ovarian hypodensity measures 2.2 cm. There is extensive left adnexal/ paraovarian fat stranding or inflammatory change. Visualized appendix is normal. Scattered sigmoid diverticula are present without CT evidence of diverticulitis. No acute fracture. Atherosclerotic vascular calcifications are present. IMPRESSION: Findings concerning for left pyosalpinx or tubo-ovarian abscess. Pelvic ultrasound may be helpful for further characterization if clinically indicated. This document has been electronically signed by: Avel Mckenzie MD, PHD on 08/10/2024 03:12:12
[2024-08-10 01:21] VITALS: BP 122/68; PULSE 67; RESP 16; TEMP 36.4; O2SAT 96; BMI 40.8
--- NOTE | 2024-08-10 01:43 | ED_ITS ---
HPI - Abdominal Pain General Chief Complaint: Abdominal Pain Stated Complaint: gen med Time Seen by Provider: 08/10/24 01:32 Source: patient Mode of arrival: ambulatory Limitations: no limitations History of Present Illness ED Provider: Dr. Khushi Jimenez HPI narrative: Patient comes to the emergency room complaining of 3 weeks of left lower quadrant pain. Patient states that she has been worked up for some ovarian pathology. Patient states that she had an ultrasound done 2 days ago. Patient does not know the results. Patient states that she has been trying to control the pain with ibuprofen but now it hurts too much and she can not tolerate the pain anymore. Patient denies any vomiting or diarrhea. Patient states that her last normal bowel movement was 2 days ago. Patient reports that she has been having pinkish vaginal discharge. Related Data Home Medications ?Medication ?Instructions ?Recorded ?Confirmed cholecalciferol (vitamin D3) 50 50 mcg PO QPM 09/06/21 01/30/23 mcg (2,000 unit) tablet gemfibrozil 600 mg tablet 600 mg PO BID 09/06/21 01/30/23 glipizide 10 mg tablet 20 mg PO BID 09/06/21 01/30/23 insulin glargine 100 unit/mL (3 35 unit subcut BEDTIME 09/06/21 01/30/23 mL) subcutaneous pen (Lantus Solostar U-100 Insulin) lisinopril 10 mg tablet 10 mg PO QPM 09/06/21 01/30/23 loratadine 10 mg tablet 10 mg PO QPM 09/06/21 01/30/23 metformin 1,000 mg tablet 1,000 mg PO BID 09/06/21 01/30/23 omega-3 acid ethyl esters 1 gram 1 cap PO DAILY 09/06/21 01/30/23 capsule sertraline 25 mg tablet 25 mg PO QAM 09/06/21 01/30/23 triamterene 37.5 1 cap PO QAM 09/06/21 01/30/23 mg-hydrochlorothiazide 25 mg capsule aspirin 81 mg chewable tablet 81 mg PO QPM 07/17/22 01/30/23 Previous Rx's ?Medication ?Instructions ?Recorded lidocaine 5 % topical patch 1 patch topical DAILY pain #15 ea 05/19/23 bisacodyl 5 mg tablet,delayed 10 mg (2 x 5 mg) PO BEDTIME #16 05/07/24 release (Dulcolax (bisacodyl)) tabs polyethylene glycol 3350 17 238 g PO ONCE #238 grams 05/07/24 gram/dose oral powder (Miralax) docusate sodium 100 mg capsule 100 mg PO BEDTIME #30 caps 06/17/24 Allergies Allergy/AdvReac Type Severity Reaction Status Date / Time Rawrhwu-CAF-GgV Reductase Allergy Severe SEVERE Verified 08/10/24 01:25 Inhibitor DIARRHEA [GZGEOEE-KJN-AMN REDUCTASE INHIBITOR] Review of Systems Review of Systems Constitutional : No Weight loss, No Fever, No Chills, No Night Sweats, No Fatigue, No Malaise ENT/Mouth : No Hearing loss, No Ear Pain, No Nasal Congestion, No Sinus Pain, No Hoarseness, No sore throat, No Rhinorrhea, No Swallowing Difficulty Eyes: No Eye Pain, No Swelling, No Redness, No Foreign Body, No Discharge, No Vision Changes Cardiovascular : No Chest Pain, No SOB, No Dyspnea on Exertion, No Orthopnea, No Edema, No Palpitations Respiratory : No Cough, No Sputum, No Wheezing, No Smoke Exposure, No Dyspnea Gastrointestinal : No Nausea, No Vomiting, No Diarrhea, No Constipation, complaining of worsening left lower quadrant pain Genitourinary : Complaining of pinkish intermittent vaginal bleeding, No Dysuria, No Urinary Frequency, No Hematuria, No Urinary Incontinence, No Urgency, No Flank Pain, No Urinary Flow Changes, No Hesitancy Musculoskeletal : No joint pain, No Myalgias, No Joint Swelling Skin : No Skin Lesions, No rash Neuro : No Weakness, No Numbness, No Paresthesias, No Loss of Consciousness, No Dizziness, No Headache Psych : No Anxiety/Panic, No Depression, No SI/HI/AH/VH, No Social Issues, Heme/Lymph: No Bruising, No Bleeding,No Lymphadenopathy Endocrine : No Polyuria, No Polydipsia, No Temperature Intolerance [facility] Past Medical History Medical History Diverticulosis Diabetes Elevated cholesterol HTN (hypertension) Restrictive lung disease Somnolence, daytime Snoring VIRI (obstructive sleep apnea) Dyspnea on exertion Obesity (BMI 35.0-39.9 without comorbidity) Surgical History Hx of cataract extraction H/O colonoscopy History of dilatation and curettage H/O: knee surgery Family History Family History Mother Colon cancer Diabetes Heart disease Brother Colon cancer Father Angina at rest Social History Social History Household Members: None Housing: Apartment Alcohol intake: never Patient Tobacco Use Status: Never used Tobacco Smoked in Last 30 Days: No Use of substances other than those prescribed or required for medical reasons: No Advance Directives: No Advance Directives Information Provided: Yes Do you have a plan to hurt others: No Plan Physical Exam ED Vital Signs: Vital Signs - 24 hr 08/10/24 01:21 08/10/24 04:19 Temperature 97.6 F 97.8 F Pulse Rate 67 70 Respiratory Rate 16 18 Blood Pressure 122/68 112/54 L Pulse Oximetry 96 93 Oxygen Delivery Method Room Air Room Air BMI result Body Mass Index 40.8 Const Other: Appearance: Alert. Oriented X3. No acute distress. Eyes: Pupils equal, round and reactive to light. ENT: Pharynx normal. Neck: Normal inspection. Neck supple. No lymph nodes noted. No crepitus CVS: Normal heart rate and rhythm. Pulses normal. Normal S1 and S2 Respiratory: No respiratory distress. Breath sounds normal. No Wheezing. No rales Abdomen: Soft , diffusely distended, pain to palpation in both upper and lower quadrants on the left, but much worse on the left lower quadrant. Positive rebound no guarding Skin: Skin warm and dry. Normal skin color. Normal skin turgor. Extremities: No lower extremity edema. No Lacerations. No Rash Neuro: Oriented X 3. No motor deficit. No sensory deficit. Moving all extremities. No slurred speech. CN 2 through 12 grossly intact Psych: calm, cooperative, normal affect Course Course Course Narrative: All of patient's labs pending Imaging pending Patient given IV fluids, morphine and Zofran Medical Decision Making Medical Decision Making MDM Narrative: I reviewed patient's ultrasound from 2 days ago. Patient has uterine fibroids, in the left ovary there is a tubular appearing hypoechoic structure in the left adnexa, suggestive of hydrosalpinx. Patient's endometrium is 20 mm in thickness and has heterogeneous multiple cystic spaces, suspicious for neoplasm. However, in the ultrasound of 2021, patient had a thickened endometrium measuring 23 mm. Subsequently, patient had an endometrium biopsy done in August of 2021. Results: mucoinflammatory material and blood, no malignancy was identified CT scan today shows a fluid feel peripherally enhancing tubular structure in the left adnexa extending towards the left ovary. Left ovarian hypodensity measures 2.2 cm. There is extensive live adnexal/periovarian fat stranding or inflammatory change. Findings are consistent with left pyosalpinx or tubo- ovarian abscess At this time, patient is not septic, no fever, no episodes of hypotension. Patient's white blood cell count is 13.8, normal chemistry LFTs and lipase. Patient is empirically being treated with IV fluids, ceftriaxone, doxycycline and metronidazole. We do not have OBGYN coverage today here at [facility]. I discussed the patient with Dr. Booth at [facility], patient being admitted. Patient has been informed of the above-mentioned, patient agrees with plan Differential Diagnosis Differential Diagnoses: The differential diagnosis associated with the presentation includes (Diverticulitis, tubo-ovarian abscess, malignancy, fibroids) Admission/Observation Consideration of admission/observation: Escalation of care including admission/observation considered Consult Healthcare Provider Management of the patient was discussed with: Quality Assurance Inspector Lab Data MDM Lab Attestation statement: I reviewed the patient's lab results. 08/10/24 01:52 08/10/24 01:52 Labs: Lab Results 08/10/24 08/10/24 Range/Units 01:52 02:06 WBC 13.8 H (4.8-10.8) X10*3/uL RBC 4.01 L (4.20-5.50) X10*6/uL Hgb 12.3 (12.0-16.0) g/dl Hct 36.5 L (37.0-47.0) % MCV 91.0 (80.0-98.0) fL MCH 30.7 (27.0-33.0) pg MCHC 33.7 (31.0-35.0) g/dl RDW 13.2 (11.0-16.0) % Plt Count 400 (160-400) X10*3/uL MPV 9.6 (9.4-12.3) fL Immature Gran % (Auto) 0.6 H (0.0-0.4) % Neut % (Auto) 73.4 H (45-73) % Lymph % (Auto) 15.2 L (20-40) % Lane % (Auto) 9.5 (2-11) % Eos % (Auto) 0.8 (0-4) % Baso % (Auto) 0.5 (0-2) % Lymph # (Auto) 2.1 (1.2-4.9) X10*3/uL Lane # (Auto) 1.3 H (0.1-1.2) X10*3/uL Eos # (Auto) 0.1 (0.0-0.4) X10*3/uL Baso # (Auto) 0.1 (0.0-0.2) X10*3/uL Abs Immat Gran (auto) 0.08 H (0.00-0.03) X10*3/uL Absolute Neuts (auto) 10.1 H (2.0-8.3) x10*3/uL Absolute Nucleated RBC 0.000 (0.0-0.012) X10*3/uL Nucleated RBC % (auto) 0.0 (0.0-0.2) /100WBC Sodium 141 (135-145) mmol/L Potassium 5.0 (3.3-5.1) mmol/L Chloride 111 H (96-108) mmol/L Carbon Dioxide 19 L (22-29) mmol/L Anion Gap 16 (12-20) BUN 50 H (9-16) mg/dL Creatinine 1.38 (0.5-1.4) mg/dL Estim Creat Clear Calc 36.0 Estimated GFR 37 Random Glucose 117 H (60-115) mg/dL Calcium 10.2 (8.4-10.2) mg/dL Total Bilirubin 0.2 (0.0-1.0) mg/dL AST 11 (5-31) U/L ALT < 6 (0-31) U/L Alkaline Phosphatase 48 (39-117) U/L Total Protein 6.9 (6.5-8.0) g/dL Albumin 3.9 (3.5-5.0) g/dL Lipase 54 (8-78) U/L Urine Color Yellow Urine Appearance Clear Urine pH 5.5 (5.0-9.0) Ur Specific [place] 1.020 (1.005-1.025) Urine Protein 30 (1+) H (Neg-Trace) mg/dL Urine Glucose (UA) Negative (Negative) mg/dL Urine Ketones Negative (Negative) mg/dL Urine Blood Negative (Negative) Urine Nitrite Negative (Negative) Ur Leukocyte Esterase Moderate (2+) H (Negative) Urine RBC 0-2 (0-2) /HPF Urine WBC >50 H (0-5) /HPF Ur Squamous Epith Cells 3-5 (0-2) /HPF Urine Bacteria None Seen (None Seen) Hyaline Casts 0-2 (0-2) /LPF Independent Interpretation I performed an independent interpretation of an: Ultrasound Radiology Impression Discussion of test interpretation with radiology: I have reviewed the radiologist's reading. Radiologist Impression: 1. Thickened endometrium with multiple cystic spaces, suspicious for neoplasm. Tissue sampling is recommended. 2. Uterine fibroids as described. 3. Tubular hypoechoic structure in the left adnexa suggestive of hydrosalpinx. Medications Administered Discontinued Medications Generic Name Dose Route Start Last Admin Trade Name Freq PRN Reason Stop Dose Admin Sodium Chloride 1,000 mls @ 999 mls/hr 08/10/24 01:47 08/10/24 02:55 Ns IVCONT 08/10/24 02:47 999 mls/hr .Q1H1M ONE Administration Iohexol 85 ml 08/10/24 02:49 08/10/24 02:50 Iohexol 350 Mg/Ml 100 Ml Infus..Btl IV 08/10/24 02:50 85 ml ONCE ONE Administration Morphine Sulfate 2 mg 08/10/24 01:47 08/10/24 02:55 Morphine Sulfate 2 Mg/Ml Cartridge IVPUSH 08/10/24 01:48 2 mg ONCE ONE Administration Protocol Ondansetron HCl 4 mg 08/10/24 01:47 08/10/24 02:55 Ondansetron Hcl 4 Mg/2 Ml Vial IVPUSH 08/10/24 01:48 4 mg ONCE ONE Administration Critical Care Time Critical Care Time Critical Care Time: Yes Total Critical Care Time: 60 Attestation: I have personally provided critical care time. Time includes review of lab data, radiology results, discussion with consultants, and monitoring for potential decompensation. Intervention performed as documented. Discharge Plan Discharge Clinical Impression: Left tubo-ovarian abscess Patient Disposition: [facility] Transfer Details: [facility] Prescriptions: No Action docusate sodium 100 mg capsule 100 mg PO BEDTIME Qty: 30 3RF lidocaine 5 % adhesive patch,medicated 1 patch topical DAILY Qty: 15 0RF Rx Instructions: leave on most painful area for up to 12 hrs cholecalciferol (vitamin D3) 50 mcg (2,000 unit) tablet 50 mcg PO QPM omega-3 acid ethyl esters 1 gram capsule 1 cap PO DAILY loratadine 10 mg tablet 10 mg PO QPM sertraline 25 mg tablet 25 mg PO QAM lisinopril 10 mg tablet 10 mg PO QPM gemfibrozil 600 mg tablet 600 mg PO BID triamterene-hydrochlorothiazid 37.5-25 mg capsule 1 cap PO QAM glipizide 10 mg tablet 20 mg PO BID metformin 1,000 mg tablet 1,000 mg PO BID Lantus Solostar U-100 Insulin 100 unit/mL (3 mL) insulin pen 35 unit subcut BEDTIME aspirin 81 mg tablet,chewable 81 mg PO QPM bisacodyl [Dulcolax (bisacodyl)] 5 mg tablet,delayed release (DR/EC) 10 mg PO BEDTIME Qty: 16 0RF Rx Instructions: Start taking 2 tablet every night 7 days before the procedure and 1 day before procedure take 4 tablets at noon time followed by MiraLax prep polyethylene glycol 3350 [Miralax] 17 gram/dose powder 238 g PO ONCE Qty: 238 0RF Rx Instructions: As directed by gastroenterology department at [facility] Print Language: Zambian
[2024-08-10 01:56] LABS: MANUAL DIFF FLAG NO
[2024-08-10 01:57] LABS: Basophils Absolute Auto 0.1 X10*3/uL (0.0-0.2); Basophils Percent Auto 0.5 % (0-2); Eosinophils Absolute Auto 0.1 X10*3/uL (0.0-0.4); Eosinophils Percent Auto 0.8 % (0-4); Hematocrit 36.5 % (37.0-47.0); Hemoglobin 12.3 g/dl (12.0-16.0); Imm Gran Abs Auto 0.08 X10*3/uL (0.00-0.03); Imm Gran Pct Auto 0.6 % (0.0-0.4); Lymphocytes Absolute Auto 2.1 X10*3/uL (1.2-4.9); Lymphocytes Percent Auto 15.2 % (20-40); Mean Corpuscular HGB Conc 33.7 g/dl (31.0-35.0); Mean Corpuscular Hemoglobin 30.7 pg (27.0-33.0); Mean Platelet Volume 9.6 fL (9.4-12.3); Monocytes Absolute Auto 1.3 X10*3/uL (0.1-1.2); Monocytes Percent Auto 9.5 % (2-11); Neutrophils Absolute Auto 10.1 x10*3/uL (2.0-8.3); Neutrophils Percent Auto 73.4 % (45-73); Platelet Count 400 X10*3/uL (160-400); Red Blood Count 4.01 X10*6/uL (4.20-5.50); Red Cell Distribution Width 13.2 % (11.0-16.0); White Blood Count 13.8 X10*3/uL (4.8-10.8)
[2024-08-10 02:16] LABS: Appearance Urine Clear; Color Urine Yellow; Glucose Urine UA Negative (Negative); Leukocyte Esterase Urine Moderate (2+) (Negative); Nitrite Urine Negative (Negative); PH 5.5 (5.0-9.0); UMIC TRIGGER UACC YES; Urine Blood Negative (Negative); Urine Ketones Negative (Negative); Urine Protein 30 (1+) mg/dL (Neg-Trace)
[2024-08-10 02:19] LABS: Alanine Aminotransferase < 6 U/L (0-31); Albumin Level 3.9 g/dL (3.5-5.0); Alkaline Phosphatase 48 U/L (39-117); Anion Gap 16 (12-20); Aspartate Amino Transferase 11 U/L (5-31); Bilirubin Total 0.2 mg/dL (0.0-1.0); Blood Urea Nitrogen 50 mg/dL (9-16); Calcium 10.2 mg/dL (8.4-10.2); Carbon Dioxide 19 mmol/L (22-29); Chloride 111 mmol/L (96-108); Estimated Glomerular Filt Rate 37; Glucose Random 117 mg/dL (60-115); Lipase 54 U/L (8-78); Sodium 141 mmol/L (135-145); Total Protein 6.9 g/dL (6.5-8.0)
[2024-08-10 02:38] LABS: Bacteria Urine None Seen (None Seen); Hyaline Casts Urine 0-2 /LPF (0-2); RBC Urine 0-2 /HPF (0-2); UACC Culture Trigger YES; WBC Urine >50 /HPF (0-5)
[2024-08-10] MEDS: iohexoL 350 MG/ML 100 ML INFUS..BTL 85 ML IV (02:50)
[2024-08-10] MEDS: ondansetron HCL 4 MG/2 ML VIAL IVPUSH (02:55)
[2024-08-10] MEDS: Morphine Sulfate 2 MG/ML CARTRIDGE IVPUSH ×2 (02:55→05:20)
[2024-08-10] MEDS: 0.9 % Sodium Chloride 1,000 ML 999 ML IVCONT (02:55)
[2024-08-10 04:19] VITALS: BP 112/54; PULSE 70; RESP 18; TEMP 36.6; O2SAT 93
[2024-08-10] MEDS: cefTRIAXone sodium 1 GM VIAL IVPUSH (04:24)
[2024-08-10] MEDS: metroNIDAZOLE/NS 500 MG/100 ML PIGGYBACK 100 MG IV (04:25)
[2024-08-10] MEDS: Doxycycline Hyclate 100 MG in 0.9 % Sodium Chloride 250 ML 166.67 MG IV (04:25)
[2024-08-10 05:30] VITALS: BP 112/54; PULSE 70; RESP 18; TEMP 36.6; O2SAT 93
== END 2024-08-10 05:31 | disposition short-term general hospital (02) ==
PROVIDERS: Emergency Provider Emergency Medicine; PCP Student in an Organized Health Care Education/Training Program
DX: N70.93 Salpingitis and oophoritis, unspecified (principal); R10.32 Left lower quadrant pain; I10 Essential (primary) hypertension; E11.9 Type 2 diabetes mellitus without complications; Z79.899 Other long term (current) drug therapy
CPT/HCPCS: 36415; 74177; 80053; 81001; 83690; 85025; 87086; 96374; 96375; 96376; 99285; J0696; J1271; J1836; J2270; J2405; Q9967

== ENCOUNTER → 2024-08-10 01:41 | Outpatient (BNV) | payer OTHER, SELFPAY | PROVIDERS: Emergency Provider Emergency Medicine; PCP Student in an Organized Health Care Education/Training Program; Visit Provider General Practice | DX: R10.32 Left lower quadrant pain (principal); D25.9 Leiomyoma of uterus, unspecified | CPT/HCPCS: 74177 ==

== ENCOUNTER 2024-09-02 14:08 | Outpatient (REF) | payer OTHER, SELFPAY ==
--- OUTSIDE RECORDS SUMMARY | 2024-09-02 16:10 | XMS_ITS | Encounter Summary ---
Author Organization [employer] Address [address] [facility] 7t [place] [address] Care Team Providers Care Greens Cutter Name Role Phone Daiana Trevino MD Primary Care Provider [phone] Encounter Details Date Type Department Care Team (Late st Contact Info) Description 08/18/2022 Orders Only [facility] MED & PEDS [address] [place] [address] Melanie Henson LPN Social History Tobacco Use [...] Description 10/22/2024 11:30 AM EDT Office Visit [facility] MED & PEDS [address] [place] [address] Daiana Trevino MD [address] [place] [address] documented as of this encounter Visit Diagnoses Not on filedocumented in this encounter Care Teams Greens Cutter Relationship Specialty Start Date End Date Daiana Trevino MD [address] [place] [address] PCP - General Family Medicine 04/04/12 documented as of this encounter
--- OUTSIDE RECORDS SUMMARY | 2024-09-02 16:10 | XMS_ITS | Encounter Summary ---
Author Organization [employer] Address [address] [facility] 7t [place] [address] Care Team Providers Care Health And Safety Specialist Name Role Phone Daiana Trevino MD Primary Care Provider Reason for Visit * Reason Onset Date Comments Referral 03/21/2023 Encounter Details Date Type Department Care Team ([facility] st Contact Info) Description 03/21/2023 Telephone [facility] MEDICINE [address] [place], [place] [phone] Daiana Trevino MD [address] [place] [address] Referral Social History Tobacco Use Types Packs/Day [...] from patient requesting a new referral for [facility] press writer did call facility and needs a renewal on referral due to previous referral expiring in September [facility] documented in this encounter Plan of Treatment Upcoming Encounters Date Type Department Care Team (Late st Contact Info) Description 10/22/2024 11:30 AM EDT Office Visit [facility] MED & PEDS [address] [place] [address] Daiana Trevino MD [address] [place] [address] documented as of this encounter Visit Diagnoses Not on filedocumented in this encounter Care Teams Health And Safety Specialist Relationship Specialty Start Date End Date Daiana Trevino MD [address] [place] [address] PCP - General Family Medicine 04/04/12 documented as of this encounter
--- OUTSIDE RECORDS SUMMARY | 2024-09-02 16:10 | XMS_ITS | Encounter Summary ---
Author Organization [employer] Address [address] [facility] 7t [place] [address] Care Team Providers Care County Director Welfare Name Role Phone Daiana Trevino MD Primary Care Provider [phone] Encounter Details Date Type Department Care Team (Latest Contact Info) Description 01/02/2020 Abstract [facility] CONVERSIONS Dental, Provider, DDS Social History Tobacco [...] 11:30 AM EDT Office Visit [facility] CHC MED & PEDS [address] [place] [address] Daiana Trevino MD [address] [place] [address] documented as of this encounter Visit Diagnoses Not on filedocumented in this encounter Care Teams County Director Welfare Relationship Specialty Start Date End Date Daiana Trevino MD [address] [place] [address] PCP - General Family Medicine 04/04/12 documented as of this encounter
--- OUTSIDE RECORDS SUMMARY | 2024-09-02 16:10 | XMS_ITS | Encounter Summary ---
Author Organization [employer] Address [address] [facility] 7t [place] [address] Care Team Providers Care Director Of Supply Chain Name Role Phone Daiana Trevino MD Primary Care Provider [phone] Encounter Details Date Type Department Care Team (Late st Contact Info) Description 12/27/2022 Orders Only [facility] MED & PEDS [address] [place] [address] Shannen Kerr LPN Social History Tobacco Use [...] EDT Office Visit [facility] MED & PEDS [address] [place] [address] Daiana Trevino MD [address] [place] [address] documented as of this encounter Visit Diagnoses Not on filedocumented in this encounter Care Teams Director Of Supply Chain Relationship Specialty Start Date End Date Daiana Trevino MD [address] [place] [address] PCP - General Family Medicine 04/04/12 documented as of this encounter
--- OUTSIDE RECORDS SUMMARY | 2024-09-02 16:10 | XMS_ITS | Encounter Summary ---
Author Organization [employer] Address [address] 7[address] [place] [address] Care Team Providers Care Wrapping Machine Helper Name Role Phone Daiana Trevino MD Primary Care Provider [phone] Reason for Visit * Reason Onset Date Comments Referral 03/01/2023 Encounter Details Date Type Department Care Team ([facility] st Contact Info) Description 03/01/2023 Telephone [facility] MEDICINE [address] [place] [address] Daiana Trevino MD [address] [place] [address] Referral Social History Tobacco Use Types Packs/Day [...] EST Tc from pt requesting renew on [facility] referral, pt have an appt today at 3:00PM forher Cortizone shot but was advise by office referral is . documented in this encounter Plan of Treatment Upcoming Encounters Date Type Department Care Team (Late st Contact Info) Description 10/22/2024 11:30 AM EDT Office Visit [facility] CHC MED & PEDS [address] [place] [address] Daiana Trevino MD [address] [place] [address] documented as of this encounter Visit Diagnoses Not on filedocumented in this encounter Care Teams Wrapping Machine Helper Relationship Specialty Start Date End Date Daiana Trevino MD [address] [place] [address] PCP - General Family Medicine 04/04/12 documented as of this encounter
--- OUTSIDE RECORDS SUMMARY | 2024-09-02 16:10 | XMS_ITS | Clinical Summary ---
Author Organization [employer] Address [address] [facility] 7t [place] [address] Care Team Providers Care Hand Packer Name Role Phone Daiana Trevino MD Primary Care Provider [phone] Allergies No known active allergies Medications fluticasone [...] Active insulin pen needle (UltiCare Short Pen Warriors Mark) 31G X 8 mm miscIndicatio ns:Type 2 diabetes mellitus without complication, without long-term current use of insulin (CMS/HCC) USE ONE DAILY 100 each 5 024 Active glucose blood (OneTouch Ultra Test) test stripIndicati ons:Type 2 diabetes mellitus without complication, without long-term current use of insulin ([facility]) TEST BLOOD SUGAR FOUR TIMES DAILY 100 [...] complication, without long-term current use of insulin ([facility]) TAKE ONE TABLET EVERY EVENING 30 tablet 11 Active metFORMIN (Glucophage) 1000 MG tabletIndicat ions:Type 2 diabetes mellitus without complication, without long-term current use of insulin ([facility]) TAKE ONE TABLET IN THE MORNING AND [...] Type Department Care Team Description 08/20/2024 Refill [facility] MED & PEDS [address] [place] [address] Daiana Trevino MD 08/20/2024 Refill [facility] MED & PEDS [address] [place] [address] Nikolai Napier MD 08/08/2024 Orders Only [facility] External Provider, [facility] 07/16/2024 3:00 PM EDT Office Visit [facility] ADULT DENTAL [address] [place] [address] Luis Miguel Delatorre DMD Periodontal disease (Primary Dx); Dental caries 07/16/2024 Refill [facility] MED & PEDS [address] [place] [address] Daiana Trevino MD 07/10/2024 Travel 07/09/2024 3:00 PM EDT Office Visit [facility] ADULT DENTAL [address] [place] [address] Luis Miguel Delatorre DMD Periodontal disease (Primary Dx); Dental caries 06/25/2024 3:00 PM EST Office Visit [facility] ADULT DENTAL [address] [place] [address] Aurelia Lord Periodontal disease (Primary Dx); Dental caries 06/19/2024 Telephone [facility] MED & PEDS [address] [place] [address] Daiana Trevino MD No Show 06/18/2024 Refill [facility] MED & PEDS [address] [place] [address] Nikolai Napier MD 06/17/2024 Refill [facility] MED & PEDS [address] [place] [address] Daiana Trevino MD Type 2 diabetes mellitus without complication, without long-term current use of insulin ([facility]) 06/15/2024 Refill [facility] MED & PEDS [address] [place] [address] Daiana Trevino MD Type 2 diabetes mellitus without complication, without long-term current use of insulin ([facility]) from Last 3 Months Immunizations Name Administration [...] 11:30 AM EDT Office Visit [facility] MED & PEDS [address] [place] [address] Daiana Trevino MD [address] [place] [address] Health Maintenance Due Date Last Done Comments [...] complication, with long-term current use of insulin ([facility]) Hypercholesterolemi a POCT GLYCATED HEMOGLOBIN, TOTAL Routine 01/28/2024 11:55 AM EDT Type 2 diabetes mellitus without complication, with long-term current use of insulin ([facility]) INTRAORAL - COMPLETE SERIES OF RADIOGRAPHIC IMAGES Routine 11/22/2023 1:00 PM EDT from Last 3 Months or Most Recently Relevant to Health Maintenance Results * CT Abdomen Pelvis w/ Contrast (08/10/2024 3:12 AM EDT) Anatomical Region Laterality Modality Body, Pelvis, Abdomen Computed T omography 08/10/2024 3:12 AM EDT Narrative 08/10/2024 3:13 AM EDT ? [facility] ?[address] ?[place] [address] ? CT Scan Report ? Signed with Addenda ? Patient: Kj,Yuliet ?MR#: [id number] ?? 992 ? : 1945 ?Acct:[id number] ? Age/Sex: 78 / F ?ADM Date: 04/20/25 ? Loc: HO.ED ? Attending Dr: ? Ordering Physician: Khushi Jimenez MD ?? Date of Service: 08/10/24 ?? Procedure(s): CT abdomen pelvis w IV con ?? Accession Number(s): [id number] ? cc: Daiana Trevino MD; Khushi Jimenez MD ? Report Number: ?? [id number]: Total DLP = ??803.00 mGy-cm ?ADDENDUM ?? [...] ADDENDUM: ?? This report was discussed with Tony Puri ??on Aug 10, 2024 03:18:00 ?? [...] ? DD/ 0312 ? TD/TT: 08/10/24311 ? Plate Preparer: ? Procedure Note Donotuseinterpreter, Image - 08/10/[address] [address] [address] Scan Report Signed with Wicho Patient: Everton Underwood#: [id number] 992 : 1945cct:[id number] Age/Sex: 78 / FADM Date: 08/10/24 Loc: HO.ED Attending Dr: Ordering Physician: Khushi Jimenez MD Date of Service: 08/10/24 Procedure(s): CT abdomen pelvis w IV con Accession Number(s): [id number] cc: Daiana Trevino MD; Khushi Jimenez MD Report Number: [id number]: Total DLP = 803.00 mGy-cm ADDENDUM This [...] in OV> 08/10/24312 DD/ 1 TD/TT: 08/10/24311 Plate Preparer: [facility] External Provider IMG CT PROCEDURES Edited Result - Final * US Pelvis Transvaginal (08/08/2024 1:07 PM EDT) Anatomical Region Laterality Modality Pelvis Ultrasound 08/08/2024 1:07 PM EDT Narrative 08/08/2024 1:48 PM EDT ? [place] [facility] ?[address] ?[place] [address] ? Ultrasound Report ? Signed ? Patient: Kj,Yuliet ?MR#: [id number] ?? 992 ? : 1945 ?Acct:[id number] ? Age/Sex: 78 / F ?ADM Date: 08/08/24 ? Loc: HO.US ? Attending Dr: Clint Damon MD ? Ordering Physician: Clint Damon MD ?? Date of Service: 08/08/24 ?? Procedure(s): US pelvic and transvaginal ?? Accession Number(s): [id number] ? cc: Daiana Trevino MD; Clint Damon [...] DD/ 1307 ? TD/TT: 08/08/24 1326 ? Plate Preparer: ? Procedure Note Donotuseinterpreter, Image - 08/08/2024 [place] [address] Ultrasound Report Signed Patient: Everton Underwood#: [id number] 992 : 6Acct:[id number] Age/Sex: 78 / FADM Date: 08/08/24 Loc: HO.US Attending Dr: Clint Damon MD Ordering Physician: Clint Damon MD Date of Service: 08/08/24 Procedure(s): US pelvic and transvaginal Accession Number(s): [id number] cc: Daiana Trevino MD; Clint Damon MD [...] 08/08/24 1345 DD/ 1307 TD/TT: 08/08/24 1326 Plate Preparer: us [facility] External Provider IMG US PROCEDURES Edited Result - Final * (ABNORMAL) Lipid Panel, Standard (03/07/2024 9:57 AM EST) Triglycerides 184(H) <150 mg/dL [facility] Comment:Desirable Triglyceri de: less than 150 mg/dLBorderline High Triglyceride 150-199 mg/dLHigh Triglyceride: 200-499 mg/dLVery High Triglyceride: greater than or equal to 5OO mg/dL Cholesterol 151 <200 mg/dL [facility] Comment:Desirable Cholestero l: less than 200 mg/dLBorderline High Cholesterol: 200-239 mg/dLHigh Cholesterol: greater than 239 mg/dL LDL Cholesterol Calculated 76 <100 mg/dL [facility] Comment:Desirable LDL: less than 100 mg/dLNear Optimal/Above Optimal LDL: 110- 129 mg/dLBorderline High LDL: 130-159 mg/dLHigh LDL: 160-189 mg/dLVery High LDL: greater than or equal to 190 mg/dL HDL Cholesterol 39(L) >40 mg/dL [facility] Comment:Desirable HDL: great er than 40 mg/dL Note: This HDL assay may give artificially low results in patients with liver disease. Blood Venous blood specimen / Unknown 03/07/2024 9:57 AM EST 03/07/2024 2:04 PM EST Daiana Trevino MD LAB BLOOD ORDERABLES Final Resul t [facility] [address] [place] [address] [phone] * (ABNORMAL) POCT HGB A1C (01/28/2024 11:55 AM EDT) Hemoglobin A1C 8.5(A) 4.0 - 6.0 % QC Media Lot # [id number] Lot# Expiration Date ,702,286 Blood 01/28/2024 11:5 5 AM EDT Daiana Trevino MD POINT OF CARE TEST ENTER/EDIT OR DERABLES Final Result from Last 3 Months or Most Recently Relevant to Health Maintenance Insurance [facility] DUAL COMPLETE D[facility]AL - [facility] Care Teams Hand Packer Relationship Specialty Start Date End Date Daiana Trevino MD [address] [place] [address] PCP - General Family Medicine 04/04/12
--- OUTSIDE RECORDS SUMMARY | 2024-09-02 16:10 | XMS_ITS | Encounter Summary ---
Author Organization [employer] Address 75 [facility] 7t [place] [address] Care Team Providers Care Grad Intern Name Role Phone Daiana Trevino MD Primary Care Provider [phone] Reason for Visit * Reason Onset Date Comments Appointment Request 04/05/2023 Encounter Details Date Type Department Care Team (Late st Contact Info) Description 04/05/2023 Telephone [facility] MEDICINE [address] [place], [place] [phone] Daiana Trevino MD 505 [place], [place] [phone] Appointment Request Social History Tobacco Use Types [...] 2:46 PM EST Tc from [place] with [facility] insurance requesting a PE appt for program Please contact pt @ [phone] documented in this encounter Plan of Treatment Upcoming Encounters Date Type Department Care Team (Late st Contact Info) Description 10/22/2024 11:30 AM EDT Office Visit [facility] MED & PEDS [address] [place] [address] Daiana Trevino MD [address] [place] [address] documented as of this encounter Visit Diagnoses Not on filedocumented in this encounter Care Teams Grad Intern Relationship Specialty Start Date End Date Daiana Trevino MD [address] [place] [address] PCP - General Family Medicine 04/04/12 documented as of this encounter
--- OUTSIDE RECORDS SUMMARY | 2024-09-02 16:10 | XMS_ITS | Encounter Summary ---
Author Organization [employer] Address 75 [facility] 7t [place] [address] Care Team Providers Care Senior It Engineer Name Role Phone Daiana Trevino MD Primary Care Provider [phone] Encounter Details Date Type Department Care Team (Late st Contact Info) Description 02/27/2023 Orders Only [facility] MED & PEDS [address] [place] [address] Shannen Kerr LPN Social History Tobacco Use [...] Description 10/22/2024 11:30 AM EDT Office Visit [facility] MED & PEDS 505 [place] [address] Daiana Trevino MD 505 [place] [address] documented as of this encounter Visit Diagnoses Not on filedocumented in this encounter Care Teams Senior It Engineer Relationship Specialty Start Date End Date Daiana Trevino MD [address] [place] [address] PCP - General Family Medicine 04/04/12 documented as of this encounter
--- OUTSIDE RECORDS SUMMARY | 2024-09-02 16:11 | XMS_ITS | Encounter Summary ---
Author Organization [employer] Address [address] [facility] [address] 7t [place] [address] Care Team Providers Care Manager Infusion Name Role Phone Daiana Trevino MD Primary Care Provider [phone] Encounter Details Date Type Department Care Team ([facility] st Contact Info) Description 03/07/2024 Orders Only [facility] CHC MED & PEDS [address] [place] [address] Daiana Trevino MD 505 [place] [address] Social History Tobacco Use Types Packs/Day Years [...] [facility] 505 [place] [address] Daiana Trevino MD [address] [place] [address] documented as of this encounter Visit Diagnoses Not on filedocumented in this encounter Additional Health Concerns Assessment Noted Time PHQ-9 Depression Total Score: 5 06/20/19 24 9:37 AM EST documented as of this encounter Care Teams Manager Infusion Relationship Specialty Start Date End Date Daiana Trevino MD [address] [place] [address] PCP - General Family Medicine 04/04/12 documented as of this encounter
--- OUTSIDE RECORDS SUMMARY | 2024-09-02 16:11 | XMS_ITS | Encounter Summary ---
Author Organization [employer] Address [address] [facility] [address] 7t [place] [address] Care Team Providers Care Research Quality Assurance Specialist Name Role Phone Daiana Trevino MD Primary Care Provider [phone] Reason for Visit * Reason Comments Med Refill Encounter Details Date Type Department Care Team ([facility] st Contact Info) Description 03/12/2024 Refill [facility] CHC MED & PEDS [address] [place], [place] [phone] Daiana Trevino MD 505 [place] [address] Type 2 diabetes mellitus without complication, without long-term current use of insulin ([facility]) Social History Tobacco Use Types Packs/Day Years [...] Description 10/22/2024 11:30 AM EDT Office Visit [facility] CH[facility] MED & PEDS [address] [place] [address] Daiana Trevino MD 505 [place] [address] documented as of this encounter Visit Diagnoses Diagnosis Type 2 diabetes mellitus without complication, without long-term current use of insulin ([facility]) documented in this encounter Additional Health Concerns Assessment Noted Time PHQ-9 Depression Total Score: 5 06/20/19 9:37 AM EST documented as of this encounter Care Teams Research Quality Assurance Specialist Relationship Specialty Start Date End Date Daiana Trevino MD [address] [place] [address] PCP - General Family Medicine 04/04/12 documented as of this encounter
--- OUTSIDE RECORDS SUMMARY | 2024-09-02 16:11 | XMS_ITS | Encounter Summary ---
Author Organization [employer] Address [address] [facility] [address] 7t [place] [address] Care Team Providers Care Specification Consultant Name Role Phone Daiana Trevino MD Primary Care Provider [phone] Reason for Visit * Reason Comments Med Refill Encounter Details Date Type Department Care Team ([facility] st Contact Info) Description 03/12/2024 Refill [facility] CHC MED & PEDS 505 [place], [place] [phone] Daiana Trevino MD 505 [place] [address] Social History Tobacco Use Types Packs/Day Years [...] Description 10/22/2024 11:30 AM EDT Office Visit [facility] CH[facility] MED & PEDS [address] [place] [address] Daiana Trevino MD 505 [place] [address] documented as of this encounter Visit Diagnoses Not on filedocumented in this encounter Additional Health Concerns Assessment Noted Time PHQ-9 Depression Total Score: 5 06/20/19 24 9:37 AM EST documented as of this encounter Care Teams Specification Consultant Relationship Specialty Start Date End Date Daiana Trevino MD [address] [place] [address] PCP - General Family Medicine 04/04/12 documented as of this encounter
--- OUTSIDE RECORDS SUMMARY | 2024-09-02 16:11 | XMS_ITS | Encounter Summary ---
Author Organization [employer] Address [address] [facility] [address] 7[address] [place] [address] Care Team Providers Care Air Support Control Officer Name Role Phone Daiana Trevino MD Primary Care Provider [phone] Reason for Visit * Reason Onset Date Comments Med Refill 03/12/2024 Encounter Details Date Type Department Care Team ([facility] Contact Info) Description 03/12/2024 Telephone [facility] CHC MED & PEDS 505 [place], [place] [phone] Daiana Trevino MD 505 [place] [address] Med Refill Social History Tobacco Use Types [...] 100 UNIT/ML pen To be sent to: [facility] - [place], [place] - [address] [facility] documented in this encounter Plan of Treatment Upcoming Encounters Date Type Department Care Team ([facility] st Contact Info) Description 10/22/2024 11:30 AM EDT Office Visit [facility] MED & PEDS 505 [facility] [place] [address] Daiana Trevino MD 505 [place] [address] documented as of this encounter Visit Diagnoses Not on filedocumented in this encounter Additional Health Concerns Assessment Noted Time PHQ-9 Depression Total Score: 5 06/20/19 24 9:37 AM EST documented as of this encounter Care Teams Air Support Control Officer Relationship Specialty Start Date End Date Daiana Trevino MD [address] [place] [address] PCP - General Family Medicine 04/04/12 documented as of this encounter
== END 2024-09-02 14:09 | disposition home or self-care (01) ==
LOC: HO.LNP 14:08
PROVIDERS: PCP Student in an Organized Health Care Education/Training Program; Visit Provider Obstetrics & Gynecology
DX: N83.8 Other noninflammatory disorders of ovary, fallopian tube and broad ligament (principal); R93.89 Abnormal findings on diagnostic imaging of other specified body structures; N70.93 Salpingitis and oophoritis, unspecified; D25.9 Leiomyoma of uterus, unspecified
CPT/HCPCS: 58100; 88305; 88341; 88342; 99212

== ENCOUNTER 2024-09-02 14:08 | Outpatient (AMB) | payer OTHER, SELFPAY ==
[2024-09-02 14:10] VITALS: BP 118/70; BMI 40.8
--- NOTE | 2024-09-02 14:10 | MHC.OFFVIS ---
Vital Signs 09/02/24 14:10 Height 5 ft 1 in Weight 216 lb BMI 40.8 BP 118/70 Intake Visit Reasons: ultrasound follow up Ships Equipment Engineer Required: No Information Interpreted: non-clinical & clinical Accompanied by: Self / Same As Patient Allergies Lazxdxu-DXB-ToE Reductase Inhibitor [[id number]-TFI-ZQP REDUCTASE INHIBITOR] Allergy (Severe, Verified 09/02/24 14:10) SEVERE DIARRHEA HPI Comments Details: Presenting for follow-up from ER visit on 08/10 followed by an inpatient admission at [facility] for left tubo-ovarian abscess, left adnexal mass and thickened endometrium. The patient started having pelvic pain on 08/10 and presented emergency room, the following workup was done: CBC showed white count of 13.8, H&H 12.3/36.5, creatinine 1.38 Pelvic ultrasound which showed the following: Uterus: The uterus is normal in size, measuring 9.5 x 1.6 x 5.3 cm. Myometrium has a normal echotexture. There is a left superior fibroid measuring 1.6 x 1.6 x 1.7 cm. There is a left uterine body fibroid measuring 2.0 x 1.5 x 1.9 cm. Endometrium: The endometrial stripe measures 20 mm in thickness and is heterogeneous with multiple cystic spaces noted. Right ovary: The right ovary is not identified. Left ovary: The left ovary measures 2.5 x 2.8 x 2.6 cm. The left ovary is normal in size and echotexture. There is a tubular appearing hypoechoic structure in the left adnexa, suggestive of a hydrosalpinx. Pelvic fluid: none CT scan of abdomen and pelvis showed the following: IMPRESSION: Findings concerning for left pyosalpinx or tubo-ovarian abscess. Pelvic ultrasound may be helpful for further characterization if clinically indicated. The patient was sent to [facility] where she was admitted was started on IV antibiotics ceftriaxone doxycycline and Flagyl, repeat pelvic ultrasound showed a 3 cm left complex adnexal mass an endometrial stripe of 2.[address] scan performed at [facility] MRI was done and showed a left tubo-ovarian complex with pyosalpinx and thickened endometrial stripe, the patient underwent interventional radiology drainage a drain was placed and complex fluid drained, culture and cytology was collected, culture grew gram-positive cocci in showed many E coli, infectious Disease was consulted doxycycline was discontinued since chlamydia were negative CT scan done on 08/14 showed no significant change in the size of the 6.6 cm soft tissue density in the left adnexal region status post percutaneous catheter placement Infectious Disease on 08/15 recommended discontinuing ceftriaxone and doxycycline and starting Levaquin 750 mg p.o. q.48h and Flagyl 500 mg p.o. t.i.d. for 14 days and to plan repeat imaging in 2 weeks after discharge, the drain was pulled out by Interventional Radiology due to low output and clinical improvement and the patient was discharged home Since then the patient is doing better no more pelvic pain, and has completed her antibiotic course [facility] Medical History Diverticulosis Diabetes Elevated cholesterol HTN (hypertension) Restrictive lung disease Somnolence, daytime Snoring VIRI (obstructive sleep apnea) Dyspnea on exertion Obesity (BMI 35.0-39.9 without comorbidity) Surgical History Hx of cataract extraction H/O colonoscopy History of dilatation and curettage H/O: knee surgery Family History Mother Colon cancer Diabetes Heart disease Brother Colon cancer Father Angina at rest Social History Household Members: None Housing: Apartment Alcohol intake: never Patient Tobacco Use Status: Never used Tobacco Review of Systems Const All systems reviewed & are unremarkable except as noted in HPI and below Physical Exam Vital Signs: Last Vital Signs BP 118/70 09/02/24 14:10 BMI result Body Mass Index 40.8 General: Yes no CVA tenderness External Female Exam: normal external appearance and normal appearance of the urethra Speculum Exam - Vagina: normal appearance of the vagina, normal palpation, no lesions and no masses Speculum Exam - Cervix: normal appearance of the cervix, normal palpation, no lesions, no masses and nontender Bimanual exam- vagina & uterus: normal bimanual exam, normal palpation, uterine size normal, normal palpation, uterine shape normal, No Cervical tenderness present and non-tender Bimanual Exam- Adnexa, other: normal adnexae Back/Spine/Pelvis Back: no CVA tenderness Office Procedures Endometrial Biopsy Details: The patient was counseled regarding the indication and benefits of endometrial sampling to rule out endometrial pathology including not limited to endometrial hyperplasia or endometrial cancer and others; The alternatives (Either do nothing vs. hysteroscopy D&C) & the risks were discussed with the patient including but not limited: pain, uterine perforation, bleeding, infection, possible injury to bladder, bowel, ureter, possible need for blood transfusion with all its possible risks. The patient verbalized understanding all questions answered and signed consent. The patient was placed into the dorsal lithotomy position; a speculum was inserted in the vagina. Using aseptic technique for the procedure, the cervix was cleansed with Betadine. The anterior lip of the cervix was grasped with a single tooth tenaculum. The uterus was sounded to 7 cm with a 4 mm Pipelle was used. Tissues samples were obtained and placed in formalin, in a patient labeled container and sent to the pathology department. At the end of the procedure, there was minimal bleeding noted The patient tolerated the procedure well and was discharged in good condition with the following instructions: Nothing in the vagina until the bleeding stops. No sex until the bleeding stops, to call if any of the following occurs: fever (>100.4), flu-like symptoms, abdominal pain, heavy bleeding, four smelling vaginal discharge. The patient was instructed to schedule a Follow up appointment in 2 weeks to discuss pathology results of the biopsy and treatment options. This note was generated with a voice recognition program. Some errors may have been overlooked during the review of this note. Sometimes these errors may affect the content or meaning of a given sentence. 31059-[id number] Biopsy Assessment & Plan Assessment & Plan (1) Complex cyst of uterine adnexa: Code(s): N83.8 - Other noninflammatory disorders of ovary, fallopian tube and broad ligament Category: Medical Plan: Will repeat CT scan to follow-up on the finding on previous ultrasound and CT scan. CT scan of abdomen and pelvis with and without contrast was ordered (2) TOA (tubo-ovarian abscess): Comment: Status post admission, inpatient parenteral antibiotic treatment, IR abscess drainage and completion of p.o. antibiotics Code(s): N70.93 - Salpingitis and oophoritis, unspecified Category: Medical Plan: The patient completed her 14 days of antibiotics Levaquin Flagyl status post IR drainage at [facility] and will order repeat CT scan for follow-up (3) Thickened endometrium: Code(s): R93.89 - Abnormal findings on diagnostic imaging of other specified body structures Category: Medical Plan: Discussed with the patient endometrial thickness above 4 mm in menopause , the differential diagnosis of a thickened endometrium includes but not limited to endometrial polyp, hyperplasia or carcinoma. Explained to the patient that endometrial each thickness is less predictive of endometrial neoplasia in asymptomatic patients, i.e. those without postmenopausal uterine bleeding. The sensitivity and specificity for detecting endometrial carcinoma at an endometrial thickness of >= 5mm was 83 and 72 percent, respectively; this is lower than in patients with bleeding. Studies have shown that postmenopausal patients without uterine bleeding who had an endometrial thickness >11 mm had an endometrial carcinoma risk of 6.7 percent; this risk is similar to postmenopausal patients with bleeding and an endometrial thickness >5 mm. Recommended endometrial sampling to rule endometrial pathology via either office endometrial biopsy or diagnostic hysteroscopy/D&C with possible polypectomy/myomectomy. All pros and cons, risks and benefits of each approach were discussed with the patient, the patient decided to proceed with endometrial biopsy. EMB done, see procedure note (4) Uterine myoma: Code(s): D25.9 - Leiomyoma of uterus, unspecified Category: Medical Plan: Discussed with the patient the findings on pelvic ultrasound & the risk of myosarcoma; in addition reviewed with the patient that malignancy and pre malignancy cannot be ruled out without hysterectomy for pathological evaluation ; furthermore, explained to the patient the limitation of pelvic ultrasound and endometrial biopsy in the setting. Discussed with the patient the options of treatment including expectant management versus hysterectomy; the pros and cons, risks benefits of each approach were discussed with the patient including the fact that in cases of myosarcoma, surgical treatment can lead to early diagnosis and positively affects the prognosis; after further discussion, the patient decided to proceed with expectant management. Will repeat pelvic ultrasound periodically. Instructions given to patient to call in case any of the following occurs: pressure symptoms, abnormal uterine bleeding, pelvic pain; and to schedule a six-months pelvic ultrasound (order placed) and a follow-up appointment . All questions answered, the patient verbalized understanding and agreed with the plan . Orders: Orders CT abdomen pelvis w IV con Today N83.299 - Other ovarian cyst, unspecified side US pelvic and transvaginal 6 Months D25.9 - Leiomyoma of uterus, unspecified AMB Endometrial Biopsy Today R93.89 - Abnormal findings on diagnostic imaging of other specified body structures Coding Level of Care Code Est Pt Level 3 (58646) Procedure Only Diagnoses Complex cyst of uterine adnexa N83.8 TOA (tubo-ovarian abscess) N70.93 Thickened endometrium R93.89 Uterine myoma D25.9 CPT Codes Endometrial Biopsy - CPT: 45327-[id number] Biopsy ([id number])
--- OUTSIDE RECORDS SUMMARY | 2024-09-02 15:19 | XMS_ITS | Encounter Summary ---
Author Organization [employer] Address [address] [facility] [address] [place] [address] Care Team Providers Care Sex Offender Treatment Professional Name Role Phone Daiana Trevino MD Primary Care Provider [phone] Encounter Details Date Type Department Care Team (Late st Contact Info) Description 12/27/2022 Orders Only [facility] MED & PEDS [address] [place] [address] Shannen Kerr LPN Social History Tobacco Use [...] Care Team (Late st Contact Info) Description 10/22/2024 11:30 AM EDT Office Visit [facility] [address] [place] [address] Daiana Trevino MD [address] [place] [address] documented as of this encounter Visit Diagnoses Not on filedocumented in this encounter Care Teams Sex Offender Treatment Professional Relationship Specialty Start Date End Date Daiana Trevino MD [address] [place] [id number] PCP - General Family Medicine 04/04/12 documented as of this encounter
--- OUTSIDE RECORDS SUMMARY | 2024-09-02 15:19 | XMS_ITS | Encounter Summary ---
Author Organization [employer] Address [address] [facility] [address] [place] [address] Care Team Providers Care Sustainability Project Manager Name Role Phone Daiana Trevino MD Primary Care Provider [phone] Reason for Visit * Reason Onset Date Comments Referral 03/01/2023 Encounter Details Date Type Department Care Team ([facility] st Contact Info) Description 03/01/2023 Telephone [facility] MEDICINE [address] [place] [address] Daiana Trevino MD [address] [place] [address] Referral Social History Tobacco Use Types Packs/Day [...] EST Tc from pt requesting renew on [facility] referral, pt have an appt today at 3:00PM forher Cortizone shot but was advise by office referral is . documented in this encounter Plan of Treatment Upcoming Encounters Date Type Department Care Team (Late st Contact Info) Description 10/22/2024 11:30 AM EDT Office Visit [facility] PEDS [address] [place] [address] Daiana Trevino MD [address] [place] [address] documented as of this encounter Visit Diagnoses Not on filedocumented in this encounter Care Teams Sustainability Project Manager Relationship Specialty Start Date End Date Daiana Trevino MD [address] [place] [id number] PCP - General Family Medicine 04/04/12 documented as of this encounter
--- OUTSIDE RECORDS SUMMARY | 2024-09-02 15:19 | XMS_ITS | Encounter Summary ---
Author Organization [employer] Address [address] [facility] [address] [place] [address] Care Team Providers Care Billiard Parlor Manager Name Role Phone Daiana Trevino MD Primary Care Provider [phone] Encounter Details Date Type Department Care Team (Latest Contact Info) Description 01/02/2020 Abstract [facility] CONVERSIONS Dental, Provider, DDS Social History Tobacco [...] Description 10/22/2024 11:30 AM EDT Office Visit [facility] MED [facility] PEDS [address] [place] [address] Daiana Trevino MD [address] [place] [address] documented as of this encounter Visit Diagnoses Not on filedocumented in this encounter Care Teams Billiard Parlor Manager Relationship Specialty Start Date End Date Daiana Trevino MD [address] [place] [phone] PCP - General Family Medicine 04/04/12 documented as of this encounter
--- OUTSIDE RECORDS SUMMARY | 2024-09-02 15:19 | XMS_ITS | Encounter Summary ---
Author Organization [employer] Address [address] [facility] [address] [place] [address] Care Team Providers Care Newspaper Correspondent Name Role Phone Daiana Trevino MD Primary Care Provider [phone] Encounter Details Date Type Department Care Team (Late st Contact Info) Description 08/18/2022 Orders Only [facility] [address] [place] [address] Melanie Henson LPN Social History Tobacco Use [...] [facility] [address] [place] [address] Daiana Trevino MD [address] [place] [address] documented as of this encounter Visit Diagnoses Not on filedocumented in this encounter Care Teams Newspaper Correspondent Relationship Specialty Start Date End Date Daiana Trevino MD [address] [place] [id number] PCP - General Family Medicine 04/04/12 documented as of this encounter
--- OUTSIDE RECORDS SUMMARY | 2024-09-02 15:19 | XMS_ITS | Encounter Summary ---
Author Organization [employer] Address [address] [facility] [address] [place] [address] Care Team Providers Care Merchandise Carrier Name Role Phone Daiana Trevino MD Primary Care Provider [phone] Reason for Visit * Reason Onset Date Comments Appointment Request 04/05/2023 Encounter Details Date Type Department Care Team (Late st Contact Info) Description 04/05/2023 Telephone [facility] MEDICINE [address] [place], [place] [phone] Daiana Trevino MD [address] [place], [place] [phone] Appointment Request Social History Tobacco Use Types [...] 2:46 PM EST Tc from [facility] with [facility] insurance requesting a PE appt for program Please contact pt @ [phone] documented in this encounter Plan of Treatment Upcoming Encounters Date Type Department Care Team (Late st Contact Info) Description 10/22/2024 11:30 AM EDT Office Visit [facility] MED [facility] PEDS [address] [place] [address] Daiana Trevino MD [address] [place] [address] documented as of this encounter Visit Diagnoses Not on filedocumented in this encounter Care Teams Merchandise Carrier Relationship Specialty Start Date End Date Daiana Trevino MD [address] [place] [phone] PCP - General Family Medicine 04/04/12 documented as of this encounter
--- OUTSIDE RECORDS SUMMARY | 2024-09-02 15:19 | XMS_ITS | Encounter Summary ---
Author Organization [employer] Address [address] [facility] [address] [place] [address] Care Team Providers Care Mail Distribution Clerk Name Role Phone Daiana Trevino MD Primary Care Provider [phone] Reason for Visit * Reason Onset Date Comments Referral 03/21/2023 Encounter Details Date Type Department Care Team ([facility] st Contact Info) Description 03/21/2023 Telephone [facility] MEDICINE [address] [place], [place] [phone] Daiana Trevino MD [address] [place] [address] Referral Social History Tobacco Use Types Packs/Day [...] from patient requesting a new referral for [facility] screen writer did call facility and needs a renewal on referral due to previous referral expiring in September [facility] documented in this encounter Plan of Treatment Upcoming Encounters Date Type Department Care Team (Late st Contact Info) Description 10/22/2024 11:30 AM EDT Office Visit [facility] [address] [place] [address] Daiana Trevino MD [address] [place] [address] documented as of this encounter Visit Diagnoses Not on filedocumented in this encounter Care Teams Mail Distribution Clerk Relationship Specialty Start Date End Date Daiana Trevino MD [address] [place] [phone] PCP - General Family Medicine 04/04/12 documented as of this encounter
--- OUTSIDE RECORDS SUMMARY | 2024-09-02 15:19 | XMS_ITS | Clinical Summary ---
Author Organization [employer] Address [address] [facility] 7[address] [place] [address] Care Team Providers Care Network Support Technician Name Role Phone Daiana Trevino MD Primary Care Provider [phone] Allergies No known active allergies Medications fluticasone (Flonase) 50 MCG/ACT nasal spray INHALE ONE OR TWO SPRAYS IN EACH NOSTRIL DAILY NEEDED 16 g 3 023 Active Aspirin Low Dose 81 MG chewable tablet CHEW ONE TABLET EVERY EVENING 30 tablet 11 024 Active omega-3 acid ethyl esters (Lovaza) 1 g capsule TAKE ONE CAPSULE IN THE MORNING AND EVENING 60 capsule 024 Active gemfibrozil (Lopid) 600 MG tablet TAKE ONE TABLET IN THE MORNING AND EVENING 60 tablet 11 024 Active Alcohol Swabs (Alcohol Prep) 70 % pads USE FIVE TIMES DAILY 100 each 5 024 Active glipiZIDE (Glucotrol) 10 MG tablet TAKE TWO TABLETS TWICE DAILY IN THE MORNING AND EVENING 120 tablet 11 024 Active triamterene-h ydroCHLOROthi azide (Dyazide) 37.5-25 MG capsule TAKE ONE CAPSULE EVERY MORNING 30 capsule 11 024 Active Lantus SoloStar 100 UNIT/ML penIndication s:Type 2 diabetes mellitus without complication, without long-term current use of insulin (CMS/HCC) INJECT 35 UNITS SUBCUTANEOUSLY AT BEDTIME 15 mL 2 024 Active insulin pen needle (UltiCare Short Pen Moseley) 31G X 8 mm miscIndicatio ns:Type 2 diabetes mellitus without complication, without long-term current use of insulin (CMS/HCC) USE ONE DAILY 100 each 5 024 Active glucose blood (OneTouch Ultra Test) test stripIndicati ons:Type 2 diabetes mellitus without complication, without long-term current use of insulin ([facility]) TEST BLOOD SUGAR FOUR TIMES DAILY 100 strip 5 024 Active loratadine (Claritin) 10 MG tablet TAKE ONE TABLET EVERY EVENING 30 tablet 5 Active albuterol 108 (90 Base) MCG/ACT inhaler Inhale 2 puffs every 6 (six) hours if needed for wheezing. 18 g 025 2025 Active cholecalcifer ol VITAMIN D (Vitamin D-3) 50 MCG (1999) tabletIndicat ions:Type 2 diabetes mellitus without complication, without long-term current use of insulin ([facility]) TAKE ONE TABLET EVERY EVENING 30 tablet 11 Active metFORMIN (Glucophage) 1000 MG tabletIndicat ions:Type 2 diabetes mellitus without complication, without long-term current use of insulin ([facility]) TAKE ONE TABLET IN THE MORNING AND EVENING 180 tablet 1 Active Docusate Sodium (DSS) 100 MG capsule TAKE ONE CAPSULE EVERY NIGHT AT BEDTIME Active lisinopril 10 MG tablet TAKE ONE TABLET EVERY EVENING 90 tablet Active sertraline (Zoloft) 25 MG tablet TAKE 1 TABLET BY MOUTH EVERY MORNING 30 tablet 2 Active rosuvastatin (Crestor) 10 MG tablet TAKE 1 TABLET BY MOUTH EVERY EVENING 90 tablet 1 Active rosuvastatin (Crestor) 10 MG tablet TAKE ONE TABLET EVERY EVENING 90 tablet 025 2024 Discontinued(R eorder (will not trigger notification to Pharmacy)) sertraline (Zoloft) 25 MG tablet TAKE 1 TABLET BY MOUTH EVERY MORNING 30 tablet 025 2024 Discontinued Active Problems Problem Noted Date Diagnosed Date Obesity, morbid 05/28/2024 Diverticulosis 06/20/2023 Other sleep apnea 06/20/2023 Hypertensive disorder 01/28/2014 Hypercholesterolemia 12/25/2012 Type II diabetes mellitus 12/25/2012 Encounters Date Type Department Care Team Description 08/20/2024 Refill [facility] [address] [place] [address] Daiana Trevino MD 08/20/2024 Refill [facility] [address] [place] [address] Nikolai Napier MD 08/08/2024 Orders Only [facility] External Provider, [facility] 07/16/2024 3:00 PM EDT Office Visit [facility] [address] [place] [address] Luis Miguel Delatrore DMD Periodontal disease (Primary Dx); Dental caries 07/16/2024 Refill [facility] [address] [place] [address] Daiana Trevino MD 07/10/2024 Travel 07/09/2024 3:00 PM EDT Office Visit [facility] [address] [place] [address] Luis Miguel Delatorre DMD Periodontal disease (Primary Dx); Dental caries 06/25/2024 3:00 PM EST Office Visit [facility] [address] [place] [address] Aurelia Lord Periodontal disease (Primary Dx); Dental caries 06/19/2024 Telephone [facility] [address] [place] [address] Daiana Trevino MD No Show 06/18/2024 Refill [facility] [address] [place] [address] Nikolai Napier MD 06/17/2024 Refill [facility] [address] [place] [address] Daiana Trevino MD Type 2 diabetes mellitus without complication, without long-term current use of insulin ([facility]) 06/15/2024 Refill [facility] [address] [place] [address] Daiana Trevino MD Type 2 diabetes mellitus without complication, without long-term current use of insulin ([facility]) from Last 3 Months Immunizations Name Administration [...] 10/22/2024 11:30 AM EDT Office Visit [facility] [address] [place] [address] Daiana Trevino MD [address] [place] [address] Health Maintenance Due Date Last Done Comments Eye Exam 10/15/1955 Alcohol/Substance Use Screening 1957 Hepatitis C Screening 10/15/1963 Diabetes: Urine Protein Screening 1964 Zoster Vaccines (1 of 2) 10/15/1995 RSV Patients and Patients Aged 60 years or older (1 - 1-dose 75+ series) 2020 Influenza Vaccine (#1) 2023 4, 03/26/2013, 01/19/2012 Diabetes: Hemoglobin A1C 04/29/20242 024, 06/20/2023, 06/20/2023, Additional history exists Depression [...] Procedure Name Priority Date/Time Associated Diagnosis Comments CT ABDOMEN PELVIS W CONTRAST Routine 08/10/2024 3:12 AM EDT US PELVIS TRANSVAGINAL Routine 08/08/2024 1:07 PM EDT 20 EXTRACTION, ERUPTED TOOTH OR EXPOSED ROOT [...] complication, with long-term current use of insulin ([facility]) Hypercholesterolemi a POCT GLYCATED HEMOGLOBIN, TOTAL Routine 01/28/2024 11:55 AM EDT Type 2 diabetes mellitus without complication, with long-term current use of insulin ([facility]) INTRAORAL - COMPLETE SERIES OF RADIOGRAPHIC IMAGES Routine 11/22/2023 1:00 PM EDT from Last 3 Months or Most Recently Relevant to Health Maintenance Results * CT Abdomen Pelvis w/ Contrast (08/10/2024 3:12 AM EDT) Anatomical Region Laterality Modality Body, Pelvis, Abdomen Computed T omography 08/10/2024 3:12 AM EDT Narrative 08/10/2024 3:13 AM EDT ? [facility] ?[address] ?[place] [address] ? CT Scan Report ? Signed with Addenda ? Patient: Kj,Yuliet ?MR#: [id number] ?? 992 ? : 1945 ?Acct:[id number] ? Age/Sex: 78 / F ?ADM Date: 04/20/25 ? Loc: HO.ED ? Attending Dr: ? Ordering Physician: Khushi Jimenez MD ?? Date of Service: 08/10/24 ?? Procedure(s): CT abdomen pelvis w IV con ?? Accession Number(s): [id number] ? cc: Daiana Trevino MD; Khushi Jimenez MD ? Report Number: ?? [id number]: Total DLP = ??803.00 mGy-cm ?ADDENDUM ?? This document has been electronically signed by: Ellen Diana on ?? 08/10/2024 03:18:51 ? ADDENDUM: ?? Addendum: ?? Comparison made with the recent prior ultrasound. ?? Endometrium and myometrium are better characterized on prior ultrasound. ?? Inflammatory changes about the left adnexa and ovary as well as anatomic ?? detail are better characterized on the current CT. ?? No interval change to left adnexal differential. Please correlate ?? clinically. ?? Endometrial structures /considerations better evaluated in the prior ?? ultrasound. ? This document has been electronically signed by: Avel Mckenzie MD, ?? PHD on 08/10/2024 03:42:11 ? Addendum Dictated By: ?Avel Mckenzie MD ? Addendum Signed By: ? <Electronically signed by Avel Mckenzie MD in OV> ? 08/10/24 0343 ?? Addendum Cosigned By: ? DD/DT: 08/10 ? TD/TT: 08/10 ?ADDENDUM ?? This document has been electronically signed by: Avel Mckenzie MD, ?? PHD on 08/10/2024 03:12:12 ? ADDENDUM: ?? This report was discussed with Toyn Puri ??on Aug 10, 2024 03:18:00 ?? EDT. ? This document has been electronically signed by: Ellen Diana on ?? 08/10/2024 03:18:51 ? Addendum Dictated By: ?Avel Mckenzie MD ? Addendum Signed By: ? <Electronically signed by Avel Mckenzie MD in OV> ? 08/10/249 ?? Addendum Cosigned By: ? DD/ ? TD/TT: 08/10/24 ? CLINICAL HISTORY: LLQ pain, US 2 days: fibroids, neoplasm suspicion ? CT abdomen and pelvis with contrast ? Comparison: None ? Findings: ?? No consolidation or effusion. ? No focal hepatic lesion identified. The gallbladder, pancreas, spleen and ?? adrenal glands are within normal limits. ?? Kidneys enhance symmetrically and are non hydronephrotic. ?? No bowel obstruction, pneumoperitoneum, or pneumatosis. ? Fluid-filled peripherally enhancing tubular structure in the left adnexa ?? extends to left ovary. Left ovarian hypodensity measures 2.2 cm. There is ?? extensive left adnexal/ paraovarian fat stranding or inflammatory change. ?? Visualized appendix is normal. Scattered sigmoid diverticula are present ?? without CT evidence of diverticulitis. ?? No acute fracture. ? Atherosclerotic vascular calcifications are present. ? IMPRESSION: ?? Findings concerning for left pyosalpinx or tubo-ovarian abscess. Pelvic ?? ultrasound may be helpful for further characterization if clinically ?? indicated. ? This document has been electronically signed by: Avel Mckenzie MD, ?? PHD on 08/10/2024 03:12:12 ? Dictated By: ?Avel Mckenzie MD ? Signed By: ?<Electronically signed by Avel Mckenzie MD in OV> ? 08/10/24 0313 ? DD/ 0312 ? TD/TT: 08/10/24311 ? Preanalytics Team Lead: ? Procedure Note Donotuseinterpreter, Image - 08/10/[address] [address] [address] Scan Report Signed with Wicho Patient: Everton Underwood#: [id number] 992 : 1945cct:[id number] Age/Sex: 78 / FADM Date: 08/10/24 Loc: HO.ED Attending Dr: Ordering Physician: Khushi Jimenez MD Date of Service: 08/10/24 Procedure(s): CT abdomen pelvis w IV con Accession Number(s): [id number] cc: Daiana Trevino MD; Khushi Jimenez MD Report Number: [id number]: Total DLP = 803.00 mGy-cm ADDENDUM This document has been electronically signed by: Ellen Diana on 08/10/2024 03:18:51 ADDENDUM: Addendum: Comparison made with the recent prior ultrasound. Endometrium and myometrium are better characterized on prior ultrasound. Inflammatory changes about the left adnexa and ovary as well as anatomic detail are better characterized on the current CT. No interval change to left adnexal differential. Please correlate clinically. Endometrial structures /considerations better evaluated in the prior ultrasound. This document has been electronically signed by: Avel Mckenzie MD, PHD on 08/10/2024 03:42:11 Addendum Dictated By: Avel Mckenzie MD Addendum Signed By: <Electronically signed by Avel Tejeda MD in OV> 08/10/24342 Addendum Cosigned By: DD/ TD/TT: 08/10/24 ADDENDUM This document has been electronically signed by: Avel Mckenzie MD, PHD on 08/10/2024 03:12:12 ADDENDUM: This report was discussed with Tony Puri on Aug 10, 2024 03:18:00 EDT. This document has been electronically signed by: Ellen Diana on 08/10/2024 03:18:51 Addendum Dictated By: Avel Mckenzie MD Addendum Signed By: <Electronically signed by Avel Tejeda MD in OV> 08/10/24318 Addendum Cosigned By: DD/ TD/TT: 08/10/24 CLINICAL HISTORY: LLQ pain, US 2 days: fibroids, neoplasm suspicion CT abdomen and pelvis with contrast Comparison: None Findings: No consolidation or effusion. No focal hepatic lesion identified. The gallbladder, pancreas, spleen and adrenal glands are within normal limits. Kidneys enhance symmetrically and are non hydronephrotic. No bowel obstruction, pneumoperitoneum, or pneumatosis. Fluid-filled peripherally enhancing tubular structure in the left adnexa extends to left ovary. Left ovarian hypodensity measures 2.2 cm. There is extensive left adnexal/ paraovarian fat stranding or inflammatory change. Visualized appendix is normal. Scattered sigmoid diverticula are present without CT evidence of diverticulitis. No acute fracture. Atherosclerotic vascular calcifications are present. IMPRESSION: Findings concerning for left pyosalpinx or tubo-ovarian abscess. Pelvic ultrasound may be helpful for further characterization if clinically indicated. This document has been electronically signed by: Avel Mckenzie MD, PHD on 08/10/2024 03:12:12 Dictated By: Avel Mckenzie MD Signed By: <Electronically signed by Avel Mckenzie MD in OV> 08/10/24312 DD/ 1 TD/TT: 08/10/24311 Preanalytics Team Lead: [facility] External Provider IMG CT PROCEDURES Edited Result - Final * US Pelvis Transvaginal (08/08/2024 1:07 PM EDT) Anatomical Region Laterality Modality Pelvis Ultrasound 08/08/2024 1:07 PM EDT Narrative 08/08/2024 1:48 PM EDT ? [place] [facility] ?[address] ?[place] [address] ? Ultrasound Report ? Signed ? Patient: Kj,Yuliet ?MR#: [id number] ?? 992 ? : 1945 ?Acct:[id number] ? Age/Sex: 78 / F ?ADM Date: 08/08/24 ? Loc: HO.US ? Attending Dr: Clint Damon MD ? Ordering Physician: Clint Damon MD ?? Date of Service: 08/08/24 ?? Procedure(s): US pelvic and transvaginal ?? Accession Number(s): [id number] ? cc: Daiana Trevino MD; Clint Damon MD ? EXAMINATION: ??US PELVIS TRANSABDOMINAL AND TRANSVAGINAL ? HISTORY: N95.0 - Postmenopausal bleeding ? COMPARISON: Comparison is made with the prior examination dated ?? 02/06/2022. ? TECHNIQUE: ? Transabdominal and endovaginal real-time 2D rivas-scale ultrasound was ?? performed. ? FINDINGS: ? Uterus: ??The uterus is normal in size, measuring 9.5 x 1.6 x 5.3 cm. ? Myometrium has a normal echotexture. ??There is a left superior fibroid ?? measuring 1.6 x 1.6 x 1.7 cm. There is a left uterine body fibroid ?? measuring 2.0 x 1.5 x 1.9 cm. ? Endometrium: ??The endometrial stripe measures 20 mm in thickness and is ?? heterogeneous with multiple cystic spaces noted. ? Right ovary: ??The right ovary is not identified. ? Left ovary: ?? The left ovary measures 2.5 x 2.8 x 2.6 cm. ??The left ?? ovary is normal in size and echotexture. There is a tubular appearing ?? hypoechoic structure in the left adnexa, suggestive of a hydrosalpinx. ? Pelvic fluid: none. ? US/US pelvic and transvaginal ?? IMPRESSION: ? 1. Thickened endometrium with multiple cystic spaces, suspicious for ?? neoplasm. Tissue sampling is recommended. ? 2. Uterine fibroids as described. ? 3. Tubular hypoechoic structure in the left adnexa suggestive of ?? hydrosalpinx. ? Electronically signed by: ??Kelby Cai MD ??08/08/2024 01:45 PM EDT ?? RP ? Dictated By: ?Kelby Cai MD ? Signed By: ?<Electronically signed by Kelby Cai MD in OV> ?08/08/24 1345 ? DD/ 1307 ? TD/TT: 08/08/24 1326 ? Preanalytics Team Lead: ? Procedure Note Donotuseinterpreter, Image - 08/08/2024 [place] [address] Ultrasound Report Signed Patient: Everton Underwood#: [id number] 992 : 6Acct:[id number] Age/Sex: 78 / FADM Date: 08/08/24 Loc: HO.US Attending Dr: Clint Damon MD Ordering Physician: Clint Damon MD Date of Service: 08/08/24 Procedure(s): US pelvic and transvaginal Accession Number(s): [id number] cc: Daiana Trevino MD; Clint Damon MD EXAMINATION: US PELVIS TRANSABDOMINAL AND TRANSVAGINAL HISTORY: N95.0 - Postmenopausal bleeding COMPARISON: Comparison is made with the prior examination dated 02/06/2022. TECHNIQUE: Transabdominal and endovaginal real-time 2D rivas-scale ultrasound was performed. FINDINGS: Uterus: The uterus is normal in size, measuring 9.5 x 1.6 x 5.3 cm. Myometrium has a normal echotexture. There is a left superior fibroid measuring 1.6 x 1.6 x 1.7 cm. There is a left uterine body fibroid measuring 2.0 x 1.5 x 1.9 cm. Endometrium: The endometrial stripe measures 20 mm in thickness and is heterogeneous with multiple cystic spaces noted. Right ovary: The right ovary is not identified. Left ovary: The left ovary measures 2.5 x 2.8 x 2.6 cm. The left ovary is normal in size and echotexture. There is a tubular appearing hypoechoic structure in the left adnexa, suggestive of a hydrosalpinx. Pelvic fluid: none. US/US pelvic and transvaginal IMPRESSION: 1. Thickened endometrium with multiple cystic spaces, suspicious for neoplasm. Tissue sampling is recommended. 2. Uterine fibroids as described. 3. Tubular hypoechoic structure in the left adnexa suggestive of hydrosalpinx. Electronically signed by: Kelby Cai MD 08/08/2024 01:45 PM EDT RP Dictated By: Kelby Cai MD Signed By: <Electronically signed by Kelby Cai MD in OV> 08/08/24 1345 DD/ 1307 TD/TT: 08/08/24 1326 Preanalytics Team Lead: us [facility] External Provider IMG US PROCEDURES Edited Result - Final * (ABNORMAL) Lipid Panel, Standard (03/07/2024 9:57 AM EST) Triglycerides 184(H) <150 mg/dL [facility] Comment:Desirable Triglyceri de: less than 150 mg/dLBorderline High Triglyceride 150-199 mg/dLHigh Triglyceride: 200-499 mg/dLVery High Triglyceride: greater than or equal to 5OO mg/dL Cholesterol 151 <200 mg/dL [facility] Comment:Desirable Cholestero l: less than 200 mg/dLBorderline High Cholesterol: 200-239 mg/dLHigh Cholesterol: greater than 239 mg/dL LDL Cholesterol Calculated 76 <100 mg/dL [facility] Comment:Desirable LDL: less than 100 mg/dLNear Optimal/Above Optimal LDL: 110- 129 mg/dLBorderline High LDL: 130-159 mg/dLHigh LDL: 160-189 mg/dLVery High LDL: greater than or equal to 190 mg/dL HDL Cholesterol 39(L) >40 mg/dL [facility] Comment:Desirable HDL: great er than 40 mg/dL Note: This HDL assay may give artificially low results in patients with liver disease. Blood Venous blood specimen / Unknown 03/07/2024 9:57 AM EST 03/07/2024 2:04 PM EST Daiana Trevino MD LAB BLOOD ORDERABLES Final Resul t [facility] [address] [place] [address] [phone] * (ABNORMAL) POCT HGB A1C (01/28/2024 11:55 AM EDT) Hemoglobin A1C 8.5(A) 4.0 - 6.0 % QC Media Lot # [id number] Lot# Expiration Date ,237,852 Blood 01/28/2024 11:5 5 AM EDT Daiana Trevino MD POINT OF CARE TEST ENTER/EDIT OR DERABLES Final Result from Last 3 Months or Most Recently Relevant to Health Maintenance Insurance [facility]TE [facility] - [facility] [employer] Care Teams Network Support Technician Relationship Specialty Start Date End Date Daiana Trevino MD [address] [place] [id number] PCP - General Family Medicine 04/04/12
--- OUTSIDE RECORDS SUMMARY | 2024-09-02 15:19 | XMS_ITS | Encounter Summary ---
Author Organization [employer] Address [address] [facility] 7t [place] [address] Care Team Providers Care Landscape Foreman Name Role Phone Daiana Trevino MD Primary Care Provider [phone] Encounter Details Date Type Department Care Team (Late st Contact Info) Description 02/27/2023 Orders Only [facility] [address] [place] [address] Shannen Kerr LPN Social History Tobacco Use [...] Description 10/22/2024 11:30 AM EDT Office Visit [facility] [address] [place] [address] Daiana Trevino MD [address] [place] [address] documented as of this encounter Visit Diagnoses Not on filedocumented in this encounter Care Teams Landscape Foreman Relationship Specialty Start Date End Date Daiana Trevino MD [address] [place] [id number] PCP - General Family Medicine 04/04/12 documented as of this encounter
--- OUTSIDE RECORDS SUMMARY | 2024-09-02 15:20 | XMS_ITS | Encounter Summary ---
Author Organization [employer] Address [address] [facility] [address] [place] [address] Care Team Providers Care Unit Control Worker Name Role Phone Daiana Trevino MD Primary Care Provider [phone] Reason for Visit * Reason Comments Med Refill Encounter Details Date Type Department Care Team ([facility] st Contact Info) Description 03/12/2024 Refill [facility] [address] [place], [place] [phone] Daiana Trevino MD [address] [place] [address] Social History Tobacco Use Types Packs/Day Years [...] Description 10/22/2024 11:30 AM EDT Office Visit [facility] [address] [place] [address] Daiana Trevino MD [address] [place] [address] documented as of this encounter Visit Diagnoses Not on filedocumented in this encounter Additional Health Concerns Assessment Noted Time PHQ-9 Depression Total Score: 5 06/20/19 24 9:37 AM EST documented as of this encounter Care Teams Unit Control Worker Relationship Specialty Start Date End Date Daiana Trevino MD [address] [place] [phone] PCP - General Family Medicine 04/04/12 documented as of this encounter
--- OUTSIDE RECORDS SUMMARY | 2024-09-02 15:20 | XMS_ITS | Encounter Summary ---
Author Organization [employer] Address [address] [facility] [address] [place] [address] Care Team Providers Care Land Examiner Name Role Phone Daiana Trevino MD Primary Care Provider [phone] Reason for Visit * Reason Onset Date Comments Med Refill 03/12/2024 Encounter Details Date Type Department Care Team ([facility] Contact Info) Description 03/12/2024 Telephone [facility] [address] [place], [place] [phone] Daiana Trevino MD [address] [place] [address] Med Refill Social History Tobacco Use Types [...] 100 UNIT/ML pen To be sent to: [facility] - [place], [place] - [address] [facility] documented in this encounter Plan of Treatment Upcoming Encounters Date Type Department Care Team ([facility] st Contact Info) Description 10/22/2024 11:30 AM EDT Office Visit [facility] [address] [place] [address] Daiana Trevino MD [address] [place] [address] documented as of this encounter Visit Diagnoses Not on filedocumented in this encounter Additional Health Concerns Assessment Noted Time PHQ-9 Depression Total Score: 5 06/20/19 24 9:37 AM EST documented as of this encounter Care Teams Land Examiner Relationship Specialty Start Date End Date Daiana Trevino MD [address] [place] [address] PCP - General Family Medicine 04/04/12 documented as of this encounter
--- OUTSIDE RECORDS SUMMARY | 2024-09-02 15:20 | XMS_ITS | Data Portability ---
Author Organization [place] - [facility], [facility] Address [address] [place] [address] Assessment Encounter Date Assessment Date Assessment LastModified [...] of continued conservative management versus surgical management. [email or web address] Not available 12/04/2023 15:12:58 03/06/2024 03/06/2024 I [...] of continued conservative management versus surgical management. [email or web address] Not available 03/05/2024 14:36:30 06/16/2024 06/16/2024 I [...] of continued conservative management versus surgical management. [email or web address] Not available 06/16/2024 12:59:53 Plan of Treatment Reminders Order Date Submit Date Provider Last Modified By Organization Details Last Modified Time Details Appointments None record ed. Lab None record ed. Referral None record ed. Procedures None record ed. Surgeries None record ed. Imaging None record ed. Medication Orders None record ed. Patient TargetsNo targets recorded. Patient InstructionsNo instructions recorded. Reason for Referral None Reported. Procedures Surgical History Date Name Laterality Status Provider Name and Address Organization Details Recorded Time 06/16/2024 JZKNEE INJ Frankie completed Chi Fierro PA-C [address], [place], [address], [facility] 06/16/2024 08:05:41 06/09/2024 JZKNEE INJ Frankie cancelled Chi Fierro PA-C [address], [place], [address], [facility] 06/09/2024 12:48:39 03/06/2024 JZKNEE INJ Frankie completed Chi Fierro PA-C [address], [place], [address], [facility] 03/05/2024 14:36:22 12/04/2023 JZKNEE INJ Frankie completed Chi Fierro PA-C [address], [place], [address], [facility] 12/04/2023 08:17:20 09/06/2023 Sports Knee 4&1 completed Chi Fierro PA-C [address], [place], [address], [facility] 09/06/2023 12:35:54 Imaging Results None recorded. Procedure [...] Not Available No t Available amoxicillin 875 mg-bhaveshu m clavulanate 125 mg tablet TAKE 1 [...] Updated DateTime 07/11/2023 154.94 cm 37 kg/m2 76938.1 g KAYLIA L'HEUREUX [place] - [facility] 07/11/2023 15:00:26 Date Recorded Body height Body mass index (BMI) Body weight Provider Name and Address Organization Details Last Updated DateTime 09/06/2023 154.94 cm 37 kg/m2 95565.1 g KAYLIA L'HEUREUX [place] [facility] 09/06/2023 15:53:34 Date Recorded Body height Body mass index (BMI) Body weight Provider Name and Address Organization Details Last Updated DateTime 12/04/2023 154.94 cm 37 kg/m2 99105.1 g KAYLIA L'HEUREUX [place] [facility] 12/04/2023 15:03:01 Date Recorded Body height Body mass index (BMI) Body weight Provider Name and Address Organization Details Last Updated DateTime 03/06/2024 154.94 cm 37 kg/m2 27324.1 g KAYLIA L'HEUREUX [place] [facility] 03/06/2024 15:47:23 Date Recorded Body height Body mass index (BMI) Body weight Provider Name and Address Organization Details Last Updated DateTime 06/16/2024 154.94 cm 37 kg/m2 58750.1 g ELFEGO LEI [facility] 06/16/2024 12:53:55 Social History Question Answer Notes LastModified by Organizat ion Details LastModified Time Tobacco Smoking Status Never Smoker ELFEGO LEI marcelino [facility] 07/11/2023 15:03:03 What Is Your Relationship Status? Single Information not available 07/11/2023 Sex: Unknown Functional Status Question Answer Note LastModified by Organizat ion Details LastModified Time Do you use any illicit or recreational drugs? No Information not available 07/11/2023 Do you or have you ever used any other forms of tobacco or nicotine? No Information not available 07/11/2023 What is your level of alcohol consumption? None Information not available 07/11/2023 Mental Status None recorded. Family History Nothing Reported. Medical History Condition Response Allergies/Hayfever Y Coronary Artery Disease N Anxiety/Depression Y Breathing or lung disorders N Emphysema N Nerve Disorders N Thyroid Problems N COPD N Pacemaker N Anemia N Kidney/Bladder Problems N Vascular Disease N Heart Attack (MD) N Gastrointestinal Disease N Cholesterol Y Diabetes [...] SNOMED-CT Code Diagnosis ICD10 Code Diagnosis Note [id number] JAIME Parikh [address] [place] [address] 07/11/2023 14:38:06 07/12/2023 07:58:16 Bilateral osteoarthritis of knees 7106538342 87399 M17.0 [id number] Chi Fierro PA-C [address] [place] [address] 09/06/2023 15:40:30 09/27/2023 15:02:46 Bilateral osteoarthritis of knees 7031670431 28409 M17.0 [id number] Chi Fierro PA-C [place] [place] [address] 12/04/2023 14:49:34 12/28/2023 12:23:49 Bilateral osteoarthritis of knees 0930781675 96136 M17.0 [id number] Chi Fierro PA-C [address] [place] [address] 03/06/2024 15:41:03 04/07/2024 12:00:28 Primary gonarthrosis, bilateral 481527300 M17.0 [id number] Chi Fierro PA-C [facility] - [place] [address] [place] [address] 06/16/2024 12:48:05 06/30/2024 18:45:02 Primary gonarthrosis, bilateral 036509123 M17.0 Health Concerns Section Related Observation LastModified by Organization Detai ls LastModified Time None Recorded Concern Status LastModified by Organization Details LastModified Time None Recorded Advance Directives Directive None Recorded Payers Encounter Date Sequence Insurance Name Policy Number Policy Collado Covered Member ID Collado Member ID Guarantor Name 07/11/2023 1 [facility] (MEDICARE REPLACEMENT/A DVANTAGE - HMO) Yuliet Underwood [id number] Yuliet Underwood 09/06/2023 1 [facility] (MEDICARE REPLACEMENT/A DVANTAGE - HMO) Yuliet Underwood [id number] Yuliet Underwood 12/04/2023 1 [facility] (MEDICARE REPLACEMENT/A DVANTAGE - HMO) Yuliet Underwood [id number] Yuliet Underwood 03/06/2024 1 [facility] (MEDICARE REPLACEMENT/A DVANTAGE - HMO) Yuliet Underwood [id number] Yuliet Underwood 06/16/2024 1 [facility] (MEDICARE REPLACEMENT/A DVANTAGE - HMO) Yuliet Underwood [id number] Yuliet Underwood Notes Date Note Type Note [...] sooner if needed. Chi Fierro PA-C [address] [facility] [address], [place], [address], [facility] 07/11/2023 15:31:47 09/06/2023 text/html I am seeing [...] versus surgical management. [facility]ierro [facility]-C [address] [facility] [address], [place], [address], [place] - [facility] 09/06/2023 16:34:07 OBGyn Episode No OBEpisode recorded.
--- OUTSIDE RECORDS SUMMARY | 2024-09-02 15:20 | XMS_ITS | Encounter Summary ---
Author Organization [employer] Address [address] 7[address] [place] [address] Care Team Providers Care Housekeeping Staff Name Role Phone Daiana Trevino MD Primary Care Provider [phone] Reason for Visit * Reason Comments Med Refill Encounter Details Date Type Department Care Team ([facility] st Contact Info) Description 03/12/2024 Refill [facility] MED & PEDS [address] [place], [place] [phone] Daiana Trevino MD [address] [place] [address] Type 2 diabetes mellitus without complication, without long-term current use of insulin ([facility]) Social History Tobacco Use Types Packs/Day Years [...] Description 10/22/2024 11:30 AM EDT Office Visit [facility] MED & PEDS [address] [place] [address] Daiana Trevino MD [address] [place] [address] documented as of this encounter Visit Diagnoses Diagnosis Type 2 diabetes mellitus without complication, without long-term current use of insulin ([facility]) documented in this encounter Additional Health Concerns Assessment Noted Time PHQ-9 Depression Total Score: 5 06/20/19 9:37 AM EST documented as of this encounter Care Teams Housekeeping Staff Relationship Specialty Start Date End Date Daiana Trevino MD [address] [place] [address] PCP - General Family Medicine 04/04/12 documented as of this encounter
--- OUTSIDE RECORDS SUMMARY | 2024-09-02 15:20 | XMS_ITS | Encounter Summary ---
Author Organization [employer] Address [address] [place] [address] Care Team Providers Care Jet Worker Name Role Phone Daiana Trevino MD Primary Care Provider [phone] Encounter Details Date Type Department Care Team ([facility] st Contact Info) Description 03/07/2024 Orders Only [facility] CHC MED & PEDS [address] [place] [address] Daiana Trevino MD [address] [place] [address] Social History Tobacco Use Types Packs/Day Years [...] Description 10/22/2024 11:30 AM EDT Office Visit [facility] CHC MED & PEDS [address] [place] [address] Daiana Trevino MD [address] [place] [address] documented as of this encounter Visit Diagnoses Not on filedocumented in this encounter Additional Health Concerns Assessment Noted Time PHQ-9 Depression Total Score: 5 06/20/19 24 9:37 AM EST documented as of this encounter Care Teams Jet Worker Relationship Specialty Start Date End Date Daiana Trevino MD [address] [place] [address] PCP - General Family Medicine 04/04/12 documented as of this encounter
== END 2024-09-02 15:16 | disposition home or self-care (01) ==
LOC: HO.HWS 14:08
PROVIDERS: PCP Student in an Organized Health Care Education/Training Program; Visit Provider Obstetrics & Gynecology
DX: N83.8 Other noninflammatory disorders of ovary, fallopian tube and broad ligament (principal); N70.93 Salpingitis and oophoritis, unspecified; R93.89 Abnormal findings on diagnostic imaging of other specified body structures; D25.9 Leiomyoma of uterus, unspecified
CPT/HCPCS: 58100; 99213

== ENCOUNTER 2024-09-16 13:00 | Outpatient (AMB) | payer OTHER, SELFPAY ==
--- OUTSIDE RECORDS SUMMARY | 2024-09-16 13:03 | XMS_ITS | Encounter Summary ---
Author Organization [employer] Address 75 [facility] 7 [place] [address] Care Team Providers Care Molecular Biology Professor Name Role Phone Daiana Trevino MD Primary Care Provider [phone] Reason for Visit * Reason Onset Date Comments Referral 03/21/2023 Encounter Details Date Type Department Care Team ([facility] st Contact Info) Description 03/21/2023 Telephone [facility] MEDICINE [address] [place], [place] [phone] Daiana Trevino MD [address] [place] [address] Referral Social History Tobacco Use Types Packs/Day [...] from patient requesting a new referral for [facility] health technical writer did call facility and needs a renewal on referral due to previous referral expiring in September [facility] documented in this encounter Plan of Treatment Upcoming Encounters Date Type Department Care Team (Late st Contact Info) Description 09/19/2024 2:00 PM EDT Office Visit [facility] ADULT DENTAL 505 [place] [address] Luis Miguel Delatorre DMD 505 [place] [address] 10/22/2024 11:30 AM EDT Office Visit [facility] MED & PEDS 505 [place], [place] [phone] Daiana Trevino MD 505 [place] [address] 01/13/2025 2:00 PM EDT Office Visit [facility]ULT [facility] 505 [place] [address] Jerry Griffin documented as of this encounter Visit Diagnoses Not on filedocumented in this encounter Care Teams Molecular Biology Professor Relationship Specialty Start Date End Date Daiana Trevino MD [address] [place] [address] PCP - General Family Medicine 04/04/12 documented as of this encounter
--- NOTE | 2024-09-16 13:05 | MHC.OFFVIS ---
Vital Signs 09/16/24 13:06 Height 5 ft 1 in Weight 216 lb BMI 40.8 Intake Visit Reasons: [address]-scan/emb results New Business Clerk Required: No Information Interpreted: non-clinical & clinical Chemical Librarian: Chemical Librarian Present (Jackie DICKINSON) Accompanied by: Self / Same As Patient Allergies Ffckcrt-MSJ-NjP Reductase Inhibitor [[id number] REDUCTASE INHIBITOR] Allergy (Severe, Verified 09/16/24 13:07) SEVERE DIARRHEA Post menopausal: Yes HPI Comments Details: Presenting for EMB follow-up. CT scan scheduled in the coming few days. Attempted to schedule CT scan to an earlier date at [facility] but could not be accommodated given the patient has insurance. The pathology of EMB showed the following: Benign atrophic endometrium, benign endocervical glandular epithelium, abundant mucus, and focal mucinous epithelium (see comment). Comment: The mucinous epithelium is favored to be endocervical, but an endometrial mucinous metaplasia cannot be completely excluded. The findings do not explain a thickened endometrium; consider re-sampling Pelvic ultrasound in 08/15 showed an endometrium as the following: Endometrium: The endometrial stripe measures 20 mm in thickness and is heterogeneous with multiple cystic spaces noted. [facility] Medical History Diverticulosis Diabetes Elevated cholesterol HTN (hypertension) Restrictive lung disease Somnolence, daytime Snoring VIRI (obstructive sleep apnea) Dyspnea on exertion Obesity (BMI 35.0-39.9 without comorbidity) Surgical History Hx of cataract extraction H/O colonoscopy History of dilatation and curettage H/O: knee surgery Family History Mother Colon cancer Diabetes Heart disease Brother Colon cancer Father Angina at rest Social History Household Members: None Housing: Apartment Alcohol intake: never Patient Tobacco Use Status: Never used Tobacco Review of Systems Const All systems reviewed & are unremarkable except as noted in HPI and below Reports as per HPI and Reports no additional complaints GI Reports no additional complaints Reports no additional complaints Physical Exam Vital Signs: BMI result Body Mass Index 40.8 Office Procedures Endometrial Biopsy Details: The patient was counseled regarding the indication and benefits of endometrial sampling to rule out endometrial pathology including not limited to endometrial hyperplasia or endometrial cancer and others; The alternatives (Either do nothing vs. hysteroscopy D&C) & the risks were discussed with the patient including but not limited: pain, uterine perforation, bleeding, infection, possible injury to bladder, bowel, ureter, possible need for blood transfusion with all its possible risks. The patient verbalized understanding all questions answered and signed consent. The patient was placed into the dorsal lithotomy position; a speculum was inserted in the vagina. Using aseptic technique for the procedure, the cervix was cleansed with Betadine. The anterior lip of the cervix was grasped with a single tooth tenaculum. The uterus was sounded to 7 cm with a 4 mm Pipelle was used. Tissues samples were obtained and placed in formalin, in a patient labeled container and sent to the pathology department. At the end of the procedure, there was minimal bleeding noted The patient tolerated the procedure well and was discharged in good condition with the following instructions: Nothing in the vagina until the bleeding stops. No sex until the bleeding stops, to call if any of the following occurs: fever (>100.4), flu-like symptoms, abdominal pain, heavy bleeding, four smelling vaginal discharge. The patient was instructed to schedule a Follow up appointment in 2 weeks to discuss pathology results of the biopsy and treatment options. This note was generated with a voice recognition program. Some errors may have been overlooked during the review of this note. Sometimes these errors may affect the content or meaning of a given sentence. [address]4728-Pas[place]eefb Biopsy Assessment & Plan Assessment & Plan (1) Postmenopausal bleeding: Comment: Thickened abnormal endometrium EMB possible mucinous endometrial metaplasia Code(s): N95.0 - Postmenopausal bleeding Category: Medical Plan: Discussed with the patient the pelvic ultrasound findings, the endometrial stripe thickenss /heterogenous measured by ultrasound and the pathology report showing possible mucinous endometrial metaplasia in the possible association with endometrial malignancy. The negative predictive value, positive predictive value, Sensitivity, specificity to detect endometrial pathology including hyperplasia , polyp or cancer were discussed with the patient. Recommended to the patient that the next step is an endometrial sampling via hysteroscopy D&C possible polypectomy versus endometrial biopsy to r/o endometrial pathology including hyperplasia or cancer. All the pros and cons risks and benefits of each approach were discussed with the patient, endometrial biopsy being less invasive, office procedure with less sensitivity and inability diagnose a polyp and removal versus hysteroscopy done under anesthesia more invasive more sensitive to endometrial cancer and possibility of diagnosing and endometrial polyp with the possibility of polypectomy. All questions were answered pt verbalized understanding and decided to proceed with repeat EMB, EMB done, see procedure Instructions given the patient to schedule an appointment two days after the schedule CT scan for follow-up. All questions answered, the patient verbalized understanding Orders: Orders AMB Endometrial Biopsy Today N95.0 - Postmenopausal bleeding Coding Level of Care Code Est Pt Level 3 (66736) Procedure Only Diagnoses Postmenopausal bleeding N95.0 CPT Codes Endometrial Biopsy - CPT: 15909-Bzdlfecuplk Biopsy ([id number])
[2024-09-16 13:06] VITALS: BMI 40.8
== END 2024-09-16 13:50 | disposition home or self-care (01) ==
PROVIDERS: PCP Student in an Organized Health Care Education/Training Program; Visit Provider Obstetrics & Gynecology
DX: N95.0 Postmenopausal bleeding (principal)
CPT/HCPCS: 58100

== ENCOUNTER 2024-09-16 13:00 | Outpatient (REF) | payer OTHER, SELFPAY | END 2024-09-16 13:01 | disposition home or self-care (01) | LOC: HO.LNP 13:00 | PROVIDERS: PCP Student in an Organized Health Care Education/Training Program; Visit Provider Obstetrics & Gynecology | DX: N95.0 Postmenopausal bleeding (principal) | CPT/HCPCS: 58100; 88305 ==

== ENCOUNTER 2024-09-29 08:54 | Outpatient (REF) | payer OTHER, SELFPAY ==
--- NOTE | ~2024-09-29 | CT_ITS ---
EXAMINATION: CT ABDOMEN AND PELVIS WITH CONTRAST CLINICAL INFORMATION: Ovarian cyst, unspecified side. COMPARISON: 08/10/2024. Pelvic ultrasound 08/08/2024. TECHNIQUE: Multidetector volumetric images were obtained from the superior aspect of the liver through the pubic symphysis following administration 85 mL of Omnipaque 350 intravenous contrast. Sagittal and coronal reformatted images were obtained on the technologist's workstation. Oral contrast: Yes This CT examination was performed using dose optimization techniques as appropriate, variously including the following: *Automated exposure control *Adjustment of mA and/or kV according to patient size (this includes techniques or standardized protocols for targeted exams where dose is matched to indication/reason for exam; i.e. extremities or head) *Use of iterative reconstruction technique FINDINGS: LUNG BASES: Lung bases demonstrate mild dependent atelectasis but are otherwise clear. There are no effusions. The heart size is borderline enlarged. There are mitral annular calcifications and mild coronary calcifications. No pericardial effusion. The distal esophagus is mildly patulous. The GE junction is normal. LIVER, GALLBLADDER, AND BILIARY TREE: The liver is normal in size, shape, and attenuation. No focal hepatic lesion or biliary ductal dilatation is present. The gallbladder is unremarkable with no evidence of radiopaque gallstones, gallbladder wall thickening, or obvious pericholecystic inflammatory changes. PANCREAS: Unremarkable. SPLEEN: Unremarkable. ADRENAL GLANDS: Unremarkable. KIDNEYS AND URETERS: The kidneys are normal in size, shape, and attenuation. 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 No hydronephrosis, hydroureter, or calculi seen. No perinephric stranding. There is a simple 1.2 cm cyst in the midpole right kidney. BLADDER: Unremarkable. GASTROINTESTINAL TRACT: There is colonic diverticulosis, involving the transverse, descending, and sigmoid colon. No rectal abnormality. Small bowel is normal in caliber and course. Stomach is somewhat decompressed. The duodenum appears normal. A normal appendix is visualized. ABDOMINAL WALL: No significant hernia is identified. There is evidence of pelvic floor weakness. LYMPH NODES: No abnormal lymphadenopathy by size criteria. VASCULAR: Moderate calcification of the aorta and iliac vessels without aneurysm. PELVIC VISCERA: The previously seen tubular fluid-filled and inflamed collection that has near completely resolved. There is only a 16 mm residual evident which may actually represent the left ovary. Remainder of the inflamed tubular structure is resolved. The uterus demonstrates a left subserosal 1.8 cm fibroid versus additional sequela of the left tubular abnormality. The uterus is otherwise normal. The endometrium is slightly prominent at 1.6 cm thickness although better evaluated with ultrasound. OSSEOUS STRUCTURES: Unremarkable. CT/CT abdomen pelvis w IV con IMPRESSION: 1. Inflammatory appearing process with dilated tubular structure in the left adnexa has nearly completely resolved. Findings suggest an infected hydrosalpinx, with near complete resolution. 2. Probable uterine fibroid tumors. 3. 1.6 cm thickened endometrium, with slightly irregular appearance, better evaluated on ultrasound. Ultrasound 08/08/2024 demonstrated a 2.0 cm thickened endometrium with mild irregularity. 4. Findings suggesting pelvic floor weakness. 5. Additional ancillary findings as detailed in the body of the report. Electronically signed by: Hunter Lazo MD 09/29/2024 01:09 PM EDT
--- OUTSIDE RECORDS SUMMARY | 2024-09-29 09:08 | XMS_ITS | Encounter Summary ---
Author Organization [employer] Address 75 [facility] 7 [place] [address] Care Team Providers Care Ladler Name Role Phone Daiana Trevnio MD Primary Care Provider [phone] Reason for Visit * Reason Onset Date Comments Referral 03/21/2023 Encounter Details Date Type Department Care Team ([facility] st Contact Info) Description 03/21/2023 Telephone [facility] MEDICINE 230 [place], [place] [phone] Daiana Trevino MD [address] [place] [address] Referral Social History Tobacco Use Types Packs/Day [...] from patient requesting a new referral for [facility] signwriter did call facility and needs a renewal on referral due to previous referral expiring in September the [facility] documented in this encounter Plan of Treatment Upcoming Encounters Date Type Department Care Team (Late st Contact Info) Description 10/01/2024 2:45 PM EDT Office Visit [facility] [address] [place] [address] Flako Briones DMD 505 [place] [address] 10/22/2024 11:30 AM EDT Office Visit [facility] MED & PEDS [address] [place], [place] [phone] Daiana Trevino MD 505 [place] [address] 01/13/2025 2:00 PM EDT Office Visit [facility] [address] [place] [address] Jerry Griffin documented as of this encounter Visit Diagnoses Not on filedocumented in this encounter Care Teams Ladler Relationship Specialty Start Date End Date Daiana Trevino MD [address] [place] [address] PCP - General Family Medicine 04/04/12 documented as of this encounter
[2024-09-29] MEDS: Barium Sulfate Oral (Vanilla) 450 ML ORAL.SUSP 900 ML PO (12:48)
[2024-09-29] MEDS: iohexoL 350 MG/ML 100 ML INFUS..BTL 85 ML IV (12:49)
[2024-09-30 14:42] LABS: Creatinine POC 1.1 mg/dL (0.5-1.4); GFR POC 49
== END 2024-09-29 08:55 | disposition home or self-care (01) ==
LOC: HO.CT 08:54
PROVIDERS: PCP Student in an Organized Health Care Education/Training Program; Visit Provider Obstetrics & Gynecology
DX: N83.299 Other ovarian cyst, unspecified side (principal)
CPT/HCPCS: 74177; 82565; Q9967

== ENCOUNTER → 2024-09-29 08:56 | Outpatient (BNV) | payer OTHER, SELFPAY | PROVIDERS: PCP Student in an Organized Health Care Education/Training Program; Visit Provider Radiology Diagnostic Radiology | DX: N28.1 Cyst of kidney, acquired (principal) | CPT/HCPCS: 74177 ==

== ENCOUNTER 2024-10-01 11:14 | Outpatient (AMB) | payer OTHER, SELFPAY ==
--- NOTE | 2024-10-01 11:19 | MHC.OFFVIS ---
Intake Visit Reasons: EMB/CT Results Store Sales Leader: Store Sales Leader Present (Macy) Accompanied by: Self / Same As Patient Allergies Rmnunrf-SVQ-HfD Reductase Inhibitor [AXGNNBS-RXR-LTH REDUCTASE INHIBITOR] Allergy (Severe, Verified 10/01/24 11:19) SEVERE DIARRHEA HPI Comments Details: The patient is presenting for follow-up 09/29/2024 CT showed the followin. Inflammatory appearing process with dilated tubular structure in the left adnexa has nearly completely resolved. Findings suggest an infected hydrosalpinx, with near complete resolution. 2. Probable uterine fibroid tumors. 3. 1.6 cm thickened endometrium, with slightly irregular appearance, better evaluated on ultrasound. Ultrasound 08/08/2024 demonstrated a 2.0 cm thickened endometrium with mild irregularity. 4. Findings suggesting pelvic floor weakness. 5. Additional ancillary findings as detailed in the body of the report. 09/03/2024 EMB pathology showed the following: Endometrium, biopsy: Benign atrophic endometrium, benign endocervical glandular epithelium, abundant mucus, and focal mucinous epithelium (see comment). Comment: The mucinous epithelium is favored to be endocervical, but an endometrial mucinous metaplasia cannot be completely excluded. The findings do not explain a thickened endometrium; consider re-sampling 09/16/24 EMB pathology showed the following: Endometrium, biopsy: Fragments of benign endometrial polyp with atrophy and focal metaplastic changes, strips of benign atrophic endometrium, and scant benign endocervical glandular and squamous epithelium; no atypia or carcinoma. [facility] Medical History Diverticulosis Diabetes Elevated cholesterol HTN (hypertension) Restrictive lung disease Somnolence, daytime Snoring VIRI (obstructive sleep apnea) Dyspnea on exertion Obesity (BMI 35.0-39.9 without comorbidity) Surgical History Hx of cataract extraction H/O colonoscopy History of dilatation and curettage H/O: knee surgery Family History Mother Colon cancer Diabetes Heart disease Brother Colon cancer Father Angina at rest Social History Household Members: None Housing: Apartment Alcohol intake: never Patient Tobacco Use Status: Never used Tobacco Review of Systems Const All systems reviewed & are unremarkable except as noted in HPI and below Reports as per HPI and Reports no additional complaints GI Reports no additional complaints Reports no additional complaints Assessment & Plan Assessment & Plan (1) TOA (tubo-ovarian abscess): Comment: Status post admission, inpatient parenteral antibiotic treatment, IR abscess drainage and completion of p.o. antibiotics CT 09/29/2024 near complete resolution Code(s): N70.93 - Salpingitis and oophoritis, unspecified Category: Medical Plan: Discussed with the patient the results of the CT scan showing near complete resolution of previous TOA (2) Postmenopausal bleeding: Comment: Endometrial polyp on EMB pathology EMB possible mucinous endometrial metaplasia Code(s): N95.0 - Postmenopausal bleeding Category: Medical Plan: Discussed with the patient the results of the most EMB pathology endometrial polyp with focal metaplasia, recommended hysteroscopy D&C possible polypectomy/myomectomy. Discussed with the patient possible association of metaplasia with possible endometrial hyperplasia or malignancy. Given the patient has complex medical history and residual TOA on CT scan, recommended referral to [facility] for further management where more resources are available (3) Uterine myoma: Code(s): D25.9 - Leiomyoma of uterus, unspecified Category: Medical Plan: Discussed with the patient the findings uterine myoma & the risk of myosarcoma; in addition reviewed with the patient that malignancy and pre malignancy cannot be ruled out without hysterectomy for pathological evaluation ; furthermore, explained to the patient the limitation of imaging and endometrial biopsy in the setting. Discussed with the patient the options of treatment including expectant management versus hysterectomy; the pros and cons, risks benefits of each approach were discussed with the patient including the fact that in cases of myosarcoma, surgical treatment can lead to early diagnosis and positively affects the prognosis; will refer to [facility] where more resources are available for further management. All questions answered, the patient verbalized understanding and agreed with the plan . Instructed the patient to call our office back in case a referral appointment is not scheduled, missed or canceled so that we will assist on rescheduling another appointment, the patient verbalized understanding agreed with the plan. (4) Renal cyst: Code(s): N28.1 - Cyst of kidney, acquired Category: Medical Plan: Discussed with the patient the finding on CT scan showing renal cyst, recommended to call her PCP for further management Coding Level of Care Code Est Pt Level 3 (50095) Diagnoses TOA (tubo-ovarian abscess) N70.93 Postmenopausal bleeding N95.0 Uterine myoma D25.9 Renal cyst N28.1
--- OUTSIDE RECORDS SUMMARY | 2024-10-01 12:53 | XMS_ITS | Encounter Summary ---
Author Organization [employer] Address [address] 7 [place] [address] Care Team Providers Care Warehouse Operator Name Role Phone Daiana Trevino MD Primary Care Provider [phone] Reason for Visit * Reason Onset Date Comments Referral 03/21/2023 Encounter Details Date Type Department Care Team ([facility] st Contact Info) Description 03/21/2023 Telephone [facility] MEDICINE [address] [place], [place] [phone] Daiana Trevino MD [address] [place] [address] Referral Social History Tobacco Use Types Packs/Day [...] from patient requesting a new referral for [facility] mortgage underwriter did call facility and needs a renewal on referral due to previous referral expiring in September [facility] documented in this encounter Plan of Treatment Upcoming Encounters Date Type Department Care Team (Late st Contact Info) Description 10/01/2024 1:00 PM EDT Office Visit [facility] ADULT DENTAL [address] [place] [address] Flako Briones DMD [address] [place] [address] 10/22/2024 11:30 AM EDT Office Visit [facility] MED & PEDS [address], [place] [phone] Daiana Trevino MD [address] [place] [address] 01/13/2025 2:00 PM EDT Office Visit [facility] ADULT DENTAL [address] [place] [address] Jerry Griffin documented as of this encounter Visit Diagnoses Not on filedocumented in this encounter Care Teams Warehouse Operator Relationship Specialty Start Date End Date Daiana Trevino MD [address] [place] [address] PCP - General Family Medicine 04/04/12 documented as of this encounter
== END 2024-10-01 13:31 | disposition home or self-care (01) ==
LOC: HO.HWS 11:14
PROVIDERS: PCP Student in an Organized Health Care Education/Training Program; Visit Provider Obstetrics & Gynecology
DX: N70.93 Salpingitis and oophoritis, unspecified (principal); N95.0 Postmenopausal bleeding; D25.9 Leiomyoma of uterus, unspecified; N28.1 Cyst of kidney, acquired
CPT/HCPCS: 99213

== ENCOUNTER → 2024-10-01 11:14 | Outpatient (BNVA) | payer OTHER, SELFPAY | PROVIDERS: PCP Student in an Organized Health Care Education/Training Program; Visit Provider Obstetrics & Gynecology | DX: N70.93 Salpingitis and oophoritis, unspecified (principal); N95.0 Postmenopausal bleeding; N28.1 Cyst of kidney, acquired; D25.9 Leiomyoma of uterus, unspecified | CPT/HCPCS: 99212 ==

== ENCOUNTER 2024-11-17 10:01 | Outpatient (REF) | payer OTHER, SELFPAY ==
--- OUTSIDE RECORDS SUMMARY | 2024-11-17 11:03 | XMS_ITS | Data Portability ---
Author Organization [place] - [facility], [facility] Address [address] [place] [address] Assessment Encounter Date Assessment Date Assessment LastModified [...] reviewed, updated and is located in the patient s chart. Examination:The patient is well appearing [...] conservative management versus surgical management. Not available 12/04/2023 15:12:58 03/06/2024 03/06/2024 I [...] reviewed, updated and is located in the patient s chart. Examination:The patient is well appearing [...] of continued conservative management versus surgical management. [email or web address] Not available 03/05/2024 14:36:30 06/16/2024 06/16/2024 I [...] reviewed, updated and is located in the patient s chart. Examination:The patient is well appearing [...] of continued conservative management versus surgical management. [email or web address] Not available 06/16/2024 12:59:53 10/30/2024 10/30/2024 I am seeing the patient today under the supervision of Dr. Salas who was available but who did not [...] reviewed, updated and is located in the patient s chart. Examination:The patient is well appearing [...] of continued conservative management versus surgical management. [email or web address] Not available 10/29/2024 14:59:45 Plan of Treatment Reminders Order Date Submit [...] Name and Address Organization Details Recorded Time 10/30/2024 JZJOSE INJ Frankie completed Chi Fierro PA-C [address], [place], [address], [facility] 10/29/2024 14:59:39 06/16/2024 JZNICHOLASEE INJ Frankie completed Chi Fierro PA-C [address], [place], [address], [facility] 06/16/2024 08:05:41 06/09/2024 JZKNEE INJ Frankie cancelled Chi Fierro PA-C [address], [place], [address], [facility] 06/09/2024 12:48:39 03/06/2024 JZKNEE INJ Frankie completed Chi Fierro PA-C [address], [place], [address], [facility] 03/05/2024 14:36:22 12/04/2023 JZKNEE INJ Frankie completed Chi Fierro PA-C [address], [place], [address], [facility] 12/04/2023 08:17:20 09/06/2023 Sports Knee 4&1 completed Chi Fierro PA-C [address], [place], [address], [facility] 09/06/2023 12:35:54 Imaging Results None recorded. Procedure Notes None recorded. Medical Equipment None Reported. Allergies No known drug allergies Medications Name Sig Start Date Stop Date Status Note LastModified by Organization Details LastModified Time medbox status USE DIRECTED active Not Available Not Available No t Available acetaminoph en 325 mg tablet TAKE 3 TABLETS BY MOUTH EVERY 6 HOURS active Not Available Not Available No t [...] completed Not Available Not Available Not Available metronidazo le 500 mg tablet TAKE 1 TABLET BY MOUTH THREE TIMES DAILY FOR 11 DAYS active Not Available Not Available No t Available triamterene 37.5 mg-hydrochl orothiazide 25 mg [...] Not Available Not Available No t Available cephalexin 500 mg capsule TAKE ONE CAPSULE TWICE DAILY FOR 5 DAYS active Not Available Not Available No [...] glycol 3350 17 gram/dose oral powder MIX 17 GRAM IN WATER AND TAKE BY MOUTH EVERY DAY active Not Available Not Available No t Available levofloxaci n 750 mg tablet TAKE 1 TABLET BY MOUTH EVERY 24 HOURS FOR 11 DAYS active Not Available Not Available No [...] Updated DateTime 06/16/2024 154.94 cm 37 kg/m2 48423.1 g KAYLIA L'HEUREUX [facility] 06/16/2024 12:53:55 Date Recorded Body height Body mass index (BMI) Body weight Provider Name and Address Organization Details Last Updated DateTime 09/06/2023 154.94 cm 37 kg/m2 94961.1 g KAYLIA L'HEUREUX [facility] 09/06/2023 15:53:34 Date Recorded Body height Body mass index (BMI) Body weight Provider Name and Address Organization Details Last Updated DateTime 10/30/2024 154.94 cm 37 kg/m2 06394.1 g Shannen Patel [facility] 10/30/2024 10:38:25 Date Recorded Body height Body mass index (BMI) Body weight Provider Name and Address Organization Details Last Updated DateTime 12/04/2023 154.94 cm 37 kg/m2 15704.1 g KAYLIA L'HEUREUX [facility] 12/04/2023 15:03:01 Date Recorded Body height Body mass index (BMI) Body weight Provider Name and Address Organization Details Last Updated DateTime 03/06/2024 154.94 cm 37 kg/m2 86889.1 g KAYLIA L'HEUREUX [facility] 03/06/2024 15:47:23 Social History Question Answer Notes LastModified by Organizat ion Details LastModified Time Tobacco Smoking Status Never Smoker ELFEGO benson [place] - [facility] 07/11/2023 15:03:03 What Is Your Relationship [...] History Nothing Reported. Medical History Condition Response Coronary Artery Disease N Anxiety/Depression Y Emphysema N COPD N Pacemaker N Vascular Disease N Gastrointestinal Disease N Autoimmune disease N Orthotics N Arthritis Y Blood Clot N Acid Reflux (GERD) N Cancer N Stroke N Circulation Problems N Rheumatoid Arthritis N Arrhythmia N Headaches N Fibromyalgia N Allergies/Hayfever Y Breathing or lung disorders N Nerve Disorders N Thyroid Problems N Kidney/Bladder Problems N Anemia N Heart Attack (IA) N Cholesterol Y Diabetes Y Bleeding Disorder N Seizures/Epilepsy N AIDS/HIV N Congestive Heart Failure (CHF) N Asthma N Peripheral Vascular Disease N Sleep Apnea Y Hepatitis N Heart Disease N Pulmonary Embolism N Hypertension Y Osteoporosis N Gynecological HistoryNo gynecological history recorded. Obstetrics History GPAL:G 0 P 0 0 0 0 Past Encounters Encounter ID Performer Location Encounter Start Date Encounter Closed Date Diagnosis/Indication Diagnosis SNOMED-CT Code Diagnosis ICD10 Code Diagnosis Note [id number] JAIME Parikh [address] [place] [address] 07/11/2023 14:38:06 07/12/2023 07:58:16 Bilateral osteoarthritis of knees [id number] 29799 M17.0 [id number] JAIME Parikh [address] [place] [address] 09/06/2023 15:40:30 09/27/2023 15:02:46 Bilateral osteoarthritis of knees [id number] 33691 M17.0 [id number] Chi Fierro PA-C [facility] [address] [place], [place] [address] 12/04/2023 14:49:34 12/28/2023 12:23:49 Bilateral osteoarthritis of knees [id number] 05367 M17.0 [id number] Chi Fierro PA-C [facility] [address] [place], [place] [address] 03/06/2024 15:41:03 04/07/2024 12:00:28 Primary gonarthrosis, bilateral [id number] M17.0 [id number] Chi Fierro PA-C [facility] [address] [place] [address] 06/16/2024 12:48:05 06/30/2024 18:45:02 Primary gonarthrosis, bilateral 328813104 M17.0 [id number] Chi Fierro PA-C [facility] [address] [place] [address] 10/30/2024 10:32:46 11/10/2024 11:44:55 Primary gonarthrosis, bilateral 811626844 M17.0 Health Concerns Section Related Observation LastModified by Organization Detai ls LastModified Time None Recorded Concern Status LastModified by Organization Details LastModified Time None Recorded Advance Directives Directive None Recorded Payers Insurance Date Sequence Insurance Name Policy Number Policy Collado Covered Member ID Collado Member ID Guarantor Name 11/10/2024 1 [facility] (MEDICARE REPLACEMENT/A DVANTAGE - HMO) Yuliet Underwood [id number] Yuliet Underwood OBGychris Episode No OBEpisode recorded.
--- OUTSIDE RECORDS SUMMARY | 2024-11-17 11:03 | XMS_ITS | Encounter Summary ---
Author Organization [employer] Address [address] [place] [address] Care Team Providers Care Photoengraving Printer Name Role Phone Daiana Trevino MD Primary Care Provider [phone] Reason for Visit * Reason Onset Date Comments Referral 03/21/2023 Encounter Details Date Type Department Care Team ([facility] st Contact Info) Description 03/21/2023 Telephone [facility] MEDICINE [address] [place], [place] [phone] Daiana Trevino MD [address] [place] [address] Referral Social History Tobacco Use Types Packs/Day [...] from patient requesting a new referral for [facility] policy writer typist did call facility and needs a renewal on referral due to previous referral expiring in September [facility] documented in this encounter Plan of Treatment Upcoming Encounters Date Type Department Care Team (Late st Contact Info) Description 12/10/2024 8:45 AM EDT Office Visit [facility] ADULT DENTAL [address] [place] [address] Flako Briones DMD [address] [place] [address] 12/25/2024 11:15 AM EDT Office Visit [facility] MED & PEDS [address], [place] [phone] Daiana Trevino MD [address] [place] [address] 01/13/2025 2:00 PM EDT Office Visit [facility] ADULT DENTAL [address] [place] [address] Jerry Griffin documented as of this encounter Visit Diagnoses Not on filedocumented in this encounter Care Teams Photoengraving Printer Relationship Specialty Start Date End Date Daiana Trevino MD [address] [place] [address] PCP - General Family Medicine 04/04/12 documented as of this encounter
[2024-11-17 15:39] LABS: Alanine Aminotransferase 16 U/L (0-31); Albumin Level 4.9 g/dL (3.5-5.0); Alkaline Phosphatase 61 U/L (39-117); Anion Gap 19 (12-20); Aspartate Amino Transferase 26 U/L (5-31); Blood Urea Nitrogen 60 mg/dL (9-16); Calcium 10.7 mg/dL (8.4-10.2); Carbon Dioxide 28 mmol/L (22-29); Chloride 97 mmol/L (96-108); Cholesterol 185 mg/dL (<200); Estimated Glomerular Filt Rate 27; HDL Cholesterol 29 mg/dL (>40); Potassium 4.5 mmol/L (3.3-5.1); Sodium 139 mmol/L (135-145); Total Protein 8.0 g/dL (6.5-8.0); Triglycerides 656 mg/dL (<150)
[2024-11-17 15:42] LABS: Microalbum/Creatinine Ratio Ur 85.8 ug/mg cr (<30)
== END 2024-11-17 10:02 | disposition home or self-care (01) ==
LOC: HO.CHCLDS 10:01
PROVIDERS: Visit Provider Student in an Organized Health Care Education/Training Program
DX: E11.9 Type 2 diabetes mellitus without complications (principal); Z79.4 Long term (current) use of insulin
CPT/HCPCS: 36415; 80048; 80061; 80076; 82043; 82570

== ENCOUNTER 2025-02-06 10:19 | Outpatient (REF) | payer OTHER, SELFPAY ==
--- OUTSIDE RECORDS SUMMARY | 2025-02-04 17:40 | XMS_ITS | Encounter Summary ---
Author Organization [employer] Address [address] 7[address] [place] [address] Care Team Providers Care Incident Handler Name Role Phone Qamar Mittal CNP Primary Care Provider +1 [phone] Reason for Visit * Reason Comments Muscle Pain Encounter Details Date Type Department Care Team (Late st Contact Info) Description 02/04/2025 5:40 PM EDT Office Visit [facility] WALK[facility] C[facility] [address] [place], [place] [phone] Selena Rhoades NP [address] [place] [address] Muscle pain (Primary Dx); Hypertriglyceridemia Social History Tobacco Use Types Packs/Day Years Used Date Smoking Tobacco: Never Passive Smoke Exposure: Never Smokeless Tobacco: Never Alcohol Use Standard Drinks/Week Comments Never 0 (1 standard drink = 0.6 oz pur e alcohol) Depression Answer Date Recorded Patient Health Questionnaire-9 Score 0 12/29/2024 Patient Health Questionnaire-9 Score 0 12/29/2024 Last PHQ-9: Questionnaire Data Not on file 0 12/29/2024 Housing Stability Answer Date Recorded What is your housing situation today? I have shaina copeland 10/15/[address] you li ve. Do you have problems with any of the following? None of the above 10/15/2024 Food Insecurity Answer Date Recorded Within the past 12 months, y ou worried that your food would run out before you got money to buy more: Never True 10/15/2024 Within the past 12 months,th e food you bought just didn't last and you didn't have enough money to get more: Never True Transportation Answer Date Recorded In the past 12 months, has l ack of transportation kept you from medical appts, meetings, work or from getting things needed for daily living? No 10/15/2024 Utilities Answer Date Recorded In the past 12 months, has t he electric, gas, oil or water company threatened to shut off services in your home? No 10/15/2024 Depression Answer Date Recorded Patient Health Questionnaire-2 Score 0 12/29/2024 Internet Access Answer Date Recorded Internet Access Q1 Yes 10/15/2024 Internet Access Q2 Not on file 10/15/2024 Comments No Sex and Gender Information Value Date Recorded Sex Assigned at Female 02/20/2022 10:18 AM EDT Legal Sex Female 10:18 AM EDT Gender Identity Female 02/20/2022 10:18 AM EDT Sexual Orientation Straight 02/20/2022 10 :18 AM EDT documented as of this encounter Last Filed Vital Signs Vital Sign Reading Time Taken Comments Blood Pressure 139/76 02/04/2025 5:44 PM EDT Pulse 100 02/04/2025 5:44 PM EDT Temperature 36.6 C (97.9 F) 02/04/2025 5:44 PM EDT Respiratory Rate 20 02/04/2025 5:44 PM EDT Oxygen Saturation 96% 02/04/2025 5:44 PM EDT Inhaled Oxygen Concentration - - Weight - - Height 154.9 cm (5' 1 ) 02/04/2025 5:44 PM EDT Body Mass Index - - documented in this encounter Progress Notes * Selena Rhoades NP - 02/04/2025 5:40 PM EDT SUBJECTIVE Yuliet Underwood is a 79 y.o. female who presents for Muscle Pain. HPI - Has had generalized muscle aches, weakness, and cramps since increase of rosuvastatin from 10 mg to 20 mg in December 2024 - Muscle cramps occur even while sitting and watching TV - No recent changes in activity level or exercise - Reports difficulty performing household tasks due to pain - Triglycerides previously elevated, as high as 502 four years ago, and over 1000 prior to startingcare at [facility] - History of dietary changes, including stopping Atkins diet and reducing rubio intake after cholesterol was found to be very high - Eats one good meal per day, avoids bread and fatty foods, only consumes sugar if feeling blood sugar dropping - Denies alcohol use - Reports taking fish oil daily and previously took red rice yeast, stopped after moving - Reports taking gemfibrozil - Urine remains yellowish, denies orange discoloration Review of Systems Constitutional: Negative. Negative for chills and fever. Respiratory: Negative for chest tightness and shortness of breath. Cardiovascular: Negative for chest pain. Gastrointestinal: Negative for abdominal pain, constipation, diarrhea and nausea. Genitourinary: Negative for dysuria. Musculoskeletal: Positive for myalgias. Negative for arthralgias, back pain and neck pain. Skin: Negative. Negative for rash and wound. Neurological: Negative for weakness, light-headedness and headaches. Psychiatric/Behavioral: Negative for behavioral problems, confusion, decreased concentration and suicidal ideas. Allergies[1] OBJECTIVE Vitals: 02/04/25 1744 BP: 139/76 BP Location: Right arm Patient Position: Sitting BP Cuff Size: Adult Pulse: 100 Resp: 20 Temp: 97.9 ??F (36.6 ??C) TempSrc: Oral SpO2: 96% Height: 5' 1 (1.549 m) Physical Exam Vitals reviewed. Constitutional: General: She is not in acute distress. Appearance: Normal appearance. She is not ill-appearing. HENT: Head: Normocephalic and atraumatic. Right Ear: External ear normal. Left Ear: External ear normal. Nose: Nose normal. Eyes: General: No scleral icterus. Extraocular Movements: Extraocular movements intact. Cardiovascular: Rate and Rhythm: Normal rate and regular rhythm. Pulses: Normal pulses. Heart sounds: Normal heart sounds. Pulmonary: Effort: Pulmonary effort is normal. No respiratory distress. Breath sounds: Normal breath sounds. Musculoskeletal: General: Tenderness present. No swelling. Normal range of motion. Cervical back: Normal range of motion and neck supple. Lymphadenopathy: Cervical: No cervical adenopathy. Skin: General: Skin is dry. Neurological: General: No focal deficit present. Mental Status: She is alert and oriented to person, place, and time. Gait: Gait normal. Psychiatric: Mood and Affect: Mood normal. Behavior: Behavior normal. Assessment & Plan Muscle pain - Onset of myalgia and muscle cramps consistent with increased dose of rosuvastatin. - Recommend discontinuation of rosuvastatin. Assisted patient in identifying pill in [employer] -Will defer lab testing for secondary causes at this time as her presentation fits satin-induced muscle pain -Advised tylenol for pain management, however patient prefers ibuprofen -Advised to monitor for worsening myalgia, urine color and report any changes such as orange discoloration prior to next appointment. -Considered aspirin initiation given elevated ASCVD risk of 30.9 %, however aspirin for primary prevention is not recommended in this age group -follow-up as scheduled with PCP -ED precautions are reveiwed Hypertriglyceridemia - Persistent elevation of triglycerides noted; total cholesterol within acceptable range. - Recommend completing fasting blood work previously ordered to reassess lipid profile. Patient agrees to have blood drawn February 06, 2025 -recommend continuation of Gemfibrozil and omega-3 -discussed benefits of dietary changes and routine physical activity Patient verbalizes understanding and agree's with the plan This note was drafted using Ambient (AI) technology. The patient/patient's guardian has been informed and has consented to the use of this technology: Yes Future Appointments Date Time Provider Department Center 02/11/2025 1:00 PM Luis Miguel Delatorre DMD [facility] 02/19/2025 1:00 PM Qamar Mittal CNP [facility] MED [facility] [1] No Known Allergies documented in this encounter Plan of Treatment Upcoming Encounters Date Type Department Care Team (Late st Contact Info) Description 02/11/2025 1:00 PM EDT [facility] [address] [place] [address] Luis Miguel Delatorre DMD [address] [place] [address] 02/19/2025 1:00 PM EDT Office Visit [facility] MED [facility] PEDS [address] [place], [place] [phone] Qamar Mittal CNP [address] [place] [address] documented as of this encounter Visit Diagnoses Diagnosis Muscle pain- Primary Unspecified myalgia and myositis Hypertriglyceridemia Pure hyperglyceridemia documented in this encounter Additional Health Concerns Assessment Noted Time PHQ-9 Depression Total Score: 0 12/30/19 11:36 AM EDT documented as of this encounter Care Teams Incident Handler Relationship Specialty Start Date End Date Qamar Mittal CNP [address] [place] [address] PCP - General Family Medicine 02/04/25 documented as of this encounter
--- OUTSIDE RECORDS SUMMARY | 2025-02-06 12:15 | XMS_ITS | Encounter Summary ---
Author Organization [employer] Address [address] [facility] 7t [place] [address] Care Team Providers Care Obstetrics And Gynecology Professor Name Role Phone Kyrie Taygeorge DEE Primary Care Provider [phone] [phone] Reason for Visit * Reason Onset Date Comments Appointment Request 04/05/2023 Encounter Details Date Type Department Care Team (Late Contact Info) Description 04/05/2023 Telephone [facility] MEDICINE [address] [place], [place] [phone] Daiana Trevino MD [address] [place] [address] Appointment Request Social History Tobacco Use Types [...] 2:46 PM EST Tc from Brice with [facility] insurance requesting a PE appt for program Please contact pt @ [phone] documented in this encounter Plan of Treatment Upcoming Encounters Date Type Department Care Team (Late st Contact Info) Description 02/11/2025 1:00 PM EDT Office Visit [facility] CHC ADULT DENTAL [address] [place] [address] Luis Miguel Delatorre, DMD [address] [place] [address] 02/19/2025 1:00 PM EDT Office Visit [facility] CHC MED & PEDS [address] [place] [address] Qamar Mittal CNP [address] [place] [address] documented as of this encounter Visit Diagnoses Not on filedocumented in this encounter Care Teams Obstetrics And Gynecology Professor Relationship Specialty Start Date End Date Qamar Mittal CNP [address] [place] [address] PCP - General Family Medicine 02/04/25 documented as of this encounter
--- OUTSIDE RECORDS SUMMARY | 2025-02-06 12:15 | XMS_ITS | Encounter Summary ---
Author Organization [employer] Address [address] [facility] 7t [place] [address] Care Team Providers Care Carton Forming Machine Helper Name Role Phone Qamar Mittal CNP Primary Care Provider [phone] [phone] Reason for Visit * Reason Onset Date Comments Referral 03/01/2023 Encounter Details Date Type Department Care Team ([facility] st Contact Info) Description 03/01/2023 Telephone [facility] MEDICINE [address] [place] [address] Daiana Trevino MD [address] [place] [address] Referral Social History Tobacco Use Types Packs/Day [...] EST Tc from pt requesting renew on [facility] referral, pt have an appt today at 3:00PM forher Cortizone shot but was advise by office referral is . documented in this encounter Plan of Treatment Upcoming Encounters Date Type Department Care Team (Late st Contact Info) Description 02/11/2025 1:00 PM EDT Office Visit [facility] ADULT DENTAL [address] [place] [address] Luis Miguel Delatorre, DMD [address] [place] [address] 02/19/2025 1:00 PM EDT Office Visit [facility] MED & PEDS [address] [place] [address] Qamar Mittal CNP [address] [place] [address] documented as of this encounter Visit Diagnoses Not on filedocumented in this encounter Care Teams Carton Forming Machine Helper Relationship Specialty Start Date End Date Qamar Mittal CNP [address] [place] [address] PCP - General Family Medicine 02/04/25 documented as of this encounter
--- OUTSIDE RECORDS SUMMARY | 2025-02-06 12:15 | XMS_ITS | Encounter Summary ---
Author Organization [employer] Address [address] [facility] 7t [place] [address] Care Team Providers Care Pot Pusher Name Role Phone Kyrie Taygeorge DEE Primary Care Provider [phone] [phone] Reason for Visit * Reason Onset Date Comments Referral 03/21/2023 Encounter Details Date Type Department Care Team ([facility] st Contact Info) Description 03/21/2023 Telephone [facility] MEDICINE [address] [place], [place] [phone] Daiana Trevino MD [address] [place] [address] Referral Social History Tobacco Use Types Packs/Day [...] from patient requesting a new referral for [facility] rfp writer did call facility and needs a renewal on referral due to previous referral expiring in September [facility] documented in this encounter Plan of Treatment Upcoming Encounters Date Type Department Care Team (Late st Contact Info) Description 02/11/2025 1:00 PM EDT Office Visit [facility] ADULT DENTAL [address] [place], [place] [phone] Luis Miguel Delatorre, DMD [address] [place], [place] [phone] 02/19/2025 1:00 PM EDT Office Visit [facility] MED & PEDS [address] [place], [place] [phone] Qamar Mittal CNP [address] [place], [place] [phone] documented as of this encounter Visit Diagnoses Not on filedocumented in this encounter Care Teams Pot Pusher Relationship Specialty Start Date End Date Qamar Mittal CNP [address] [place], [place] [phone] PCP - General Family Medicine 02/04/25 documented as of this encounter
--- OUTSIDE RECORDS SUMMARY | 2025-02-06 12:15 | XMS_ITS | Encounter Summary ---
Author Organization [employer] [facility] Address [address] [place] [address] 7 [place] [address] Care Team Providers Care Crystallography Teacher Name Role Phone Qamar Mittal CNP Primary Care Provider [phone] [phone] Encounter Details Date Type Department Care Team (Late st Contact Info) Description 02/27/2023 Orders Only [facility] MED & PEDS [address] [place] [address] Shannen Kerr LPN Social History Tobacco Use [...] Description 02/11/2025 1:00 PM EDT Office Visit [facility] ADULT DENTAL [address] [place] [address] Luis Miguel Delatorre, JEFERSON [address] [place] [address] 02/19/2025 1:00 PM EDT Office Visit [facility] MED & PEDS [address] [place] [address] Qamar Mittal CNP [address] [place] [address] documented as of this encounter Visit Diagnoses Not on filedocumented in this encounter Care Teams Crystallography Teacher Relationship Specialty Start Date End Date Qamar Mittal CNP [address] [place], [place] [address] [place] [address] PCP - General Family Medicine 02/04/25 documented as of this encounter
--- OUTSIDE RECORDS SUMMARY | 2025-02-06 12:16 | XMS_ITS | Encounter Summary ---
Author Organization [employer] Address [address] [facility] 7t [place] [address] Care Team Providers Care Filler Leaf Cutter Long Name Role Phone Qamar Mittal CNP Primary Care Provider [phone] [phone] Reason for Visit * Reason Comments Med Refill Encounter Details Date Type Department Care Team ([facility] Contact Info) Description 03/12/2024 Refill [facility] CHC MED & PEDS [address] [place], [place] [phone] Daiana Trevino MD [address] [place] [address] Type 2 diabetes mellitus without complication, without long-term current use of insulin ([facility]) Social History Tobacco Use Types Packs/Day Years [...] 02/11/2025 1:00 PM EDT Office Visit [facility] ADULT DENTAL [address] [place] [address] Luis Miguel Delatorre DMD [address] [place] [address] 02/19/2025 1:00 PM EDT Office Visit [facility] MED & PEDS [address] [place] [address] Qamar Mittal CNP [address] [place] [address] documented as of this encounter Visit Diagnoses Diagnosis Type 2 diabetes mellitus without complication, without long-term current use of insulin (HCC) documented in this encounter Additional Health Concerns Assessment Noted Time PHQ-9 Depression Total Score: 5 06/20/19 9:37 AM EST documented as of this encounter Care Teams Filler Leaf Cutter Long Relationship Specialty Start Date End Date Qamar Mittal CNP [address] [place] [address] PCP - General Family Medicine 02/04/25 documented as of this encounter
--- OUTSIDE RECORDS SUMMARY | 2025-02-06 12:16 | XMS_ITS | Encounter Summary ---
Author Organization [employer] Address [address] [facility] [address] 7[address] [place] [address] Care Team Providers Care Dynamite Reclaimer Name Role Phone Qamar Mittal CNP Primary Care Provider [phone] [phone] Reason for Visit * Reason Onset Date Comments Med Refill 03/12/2024 Encounter Details Date Type Department Care Team ([facility] Contact Info) Description 03/12/2024 Telephone [facility] CHC MED & PEDS [address] [place], [place] [phone] Daiana Trevino MD [address] [place] [address] Med Refill Social History Tobacco Use Types [...] to: [facility] - [address] documented in this encounter Plan of Treatment Upcoming Encounters Date Type Department Care Team ([facility] st Contact Info) Description 02/11/2025 1:00 PM EDT Office Visit [facility] ADULT DENTAL [address] [place] [address] Luis Miguel Delatorre, JEFERSON [address] [place] [address] 02/19/2025 1:00 PM EDT Office Visit [facility] MED & PEDS [address] [place] [address] Qamar Mittal CNP [address] [place] [address] documented as of this encounter Visit Diagnoses Not on filedocumented in this encounter Additional Health Concerns Assessment Noted Time PHQ-9 Depression Total Score: 5 06/20/19 24 9:37 AM EST documented as of this encounter Care Teams Dynamite Reclaimer Relationship Specialty Start Date End Date Qamar Mittal CNP [address] [place] [address] PCP - General Family Medicine 02/04/25 documented as of this encounter
--- OUTSIDE RECORDS SUMMARY | 2025-02-06 12:16 | XMS_ITS | Encounter Summary ---
Author Organization [employer] Address [address] 7[address] [place] [address] Care Team Providers Care C Wpf Developer Name Role Phone Qamar Mittal CNP Primary Care Provider [phone] [phone] Encounter Details Date Type Department Care Team ([facility] Contact Info) Description 02/03/2025 Telephone C [facility] MED & PEDS [address] [place] [address] Daiana Trevino MD [address] [place] [address] Social History Tobacco Use Types Packs/Day Years [...] Description 02/11/2025 1:00 PM EDT Office Visit [facility] ADULT DENTAL [address] [place] [address] Luis Miguel Delatorre DMD [address] [place] [address] 02/19/2025 1:00 PM EDT Office Visit [facility] MED & PEDS [address] [place] [address] Qamar Mittal CNP [address] [place] [address] documented as of this encounter Visit Diagnoses Diagnosis Type 2 diabetes mellitus without complication, with long-term current use of insulin (HCC) documented in this encounter Additional Health Concerns Assessment Noted Time PHQ-9 Depression Total Score: 0 12/30/19 11:36 AM EDT documented as of this encounter Care Teams C Wpf Developer Relationship Specialty Start Date End Date Qamar Mittal CNP [address] [place] [address] PCP - General Family Medicine 02/04/25 documented as of this encounter
--- OUTSIDE RECORDS SUMMARY | 2025-02-06 12:16 | XMS_ITS | Encounter Summary ---
Author Organization [employer] Address [address] 7[address] [place] [address] Care Team Providers Care Regional Administrative Assistant Name Role Phone Qamar Mittal CNP Primary Care Provider [phone] [phone] Encounter Details Date Type Department Care Team ([facility] Contact Info) Description 03/07/2024 Orders Only [facility] CHC MED & PEDS [address] [place] [address] Daiana Trevino MD [address] [place] [address] Social History Tobacco Use Types Packs/Day Years [...] Description 02/11/2025 1:00 PM EDT Office Visit [facility] ADULT DENTAL 505 [place] [address] Luis Miguel Delatorre DMD [address] [place] [address] 02/19/2025 1:00 PM EDT Office Visit [facility] MED & PEDS [address] [place] [address] Qamar Mittal CNP [address] [place] [address] documented as of this encounter Visit Diagnoses Not on filedocumented in this encounter Additional Health Concerns Assessment Noted Time PHQ-9 Depression Total Score: 5 06/20/19 24 9:37 AM EST documented as of this encounter Care Teams Regional Administrative Assistant Relationship Specialty Start Date End Date Qamar Mittal CNP [address] [place] [address] PCP - General Family Medicine 02/04/25 documented as of this encounter
--- OUTSIDE RECORDS SUMMARY | 2025-02-06 12:16 | XMS_ITS | Clinical Summary ---
Author Organization [employer] Address [address] [place] [address] 7[address] [place] [address] Care Team Providers Care Flat Knitter Name Role Phone Qamar Mittal CNP Primary Care Provider [phone] Allergies No known active allergies Medications fluticasone (Flonase) 50 MCG/ACT nasal spray INHALE ONE OR TWO SPRAYS IN EACH NOSTRIL DAILY NEEDED 16 g 3 023 Active glipiZIDE (Glucotrol) 10 MG tablet TAKE TWO TABLETS TWICE DAILY IN THE MORNING AND EVENING 120 tablet 11 024 Active triamterene-h ydroCHLOROthi azide (Dyazide) 37.5-25 MG capsule TAKE ONE CAPSULE EVERY MORNING 30 capsule 11 024 Active insulin pen needle (UltiCare Short Pen [place]) 31G X 8 mm miscIndicatio ns:Type 2 diabetes mellitus without complication, without long-term current use of insulin ([facility]) USE ONE DAILY 100 each 5 024 Active glucose blood (OneTouch Ultra Test) test stripIndicati ons:Type 2 diabetes mellitus without complication, without long-term current use of insulin ([facility]) TEST BLOOD SUGAR FOUR TIMES DAILY 100 strip 5 024 Active albuterol 108 (90 Base) MCG/ACT inhaler Inhale 2 puffs every 6 (six) hours if needed for wheezing. 18 g 025 2025 Active cholecalcifer ol VITAMIN D (Vitamin D-3) 50 MCG (1999 UT) tabletIndicat ions:Type 2 diabetes mellitus without complication, without long-term current use of insulin ([facility]) TAKE ONE TABLET EVERY EVENING 30 tablet 11 025 Active Docusate Sodium (DSS) 100 MG capsule TAKE ONE CAPSULE EVERY NIGHT AT BEDTIME Active loratadine (Claritin) 10 MG tablet TAKE ONE TABLET EVERY EVENING 30 tablet 5 Active lisinopril 10 MG tablet TAKE ONE TABLET EVERY EVENING 90 tablet 1 025 Active sertraline (Zoloft) 25 MG tablet TAKE ONE TABLET EVERY MORNING 30 tablet 2 Active insulin glargine (Lantus SoloStar) 100 UNIT/ML penIndication s:Type 2 diabetes mellitus without complication, without long-term current use of insulin ([facility]) INJECT 35 UNITS SUBCUTANEOUSLY AT BEDTIME 15 mL Active acetaminophen (Tylenol) 325 MG tablet TAKE 3 TABLETS BY MOUTH EVERY 6 HOURS Active Aspirin Low Dose 81 MG chewable tablet CHEW ONE TABLET EVERY EVENING 30 tablet Active omega-3 acid ethyl esters (Lovaza) 1 g capsule TAKE ONE CAPSULE IN THE MORNING AND EVENING 60 capsule Active gemfibrozil (Lopid) 600 MG tablet TAKE ONE TABLET IN THE MORNING AND EVENING 60 tablet Active furosemide (Lasix) 20 MG tablet TAKE ONE TABLET EVERY MORNING 30 tablet 1 Active metFORMIN (Glucophage) 1000 MG tabletIndicat ions:Type 2 diabetes mellitus without complication, without long-term current use of insulin ([facility]) TAKE ONE TABLET IN THE MORNING AND EVENING 180 tablet 1 025 Active Blood Glucose Monitoring Suppl (ONE TOUCH ULTRA 2) w/Device kitIndication s:Type 2 diabetes mellitus without complication, with long-term current use of insulin ([facility]) USE TO TEST BLOOD SUGAR ONCE A DAY 1 kit 025 Active Alcohol Swabs (Alcohol Prep) 70 % pads USE FIVE TIMES DAILY 100 each 11 025 Active glucose blood (Accu-Chek Guide Test) test stripIndicati ons:Type 2 diabetes mellitus without complication, with long-term current use of insulin ([facility]) Check sugars twice daily 100 each 11 025 2025 Active Blood Glucose Monitoring Suppl (Accu-Chek Guide) w/Device kitIndication s:Type 2 diabetes mellitus without complication, with long-term current use of insulin ([facility]) Check sugars twice daily 1 kit 3 Active Accu-Chek Softclix Lancets lancetsIndica tions:Type 2 diabetes mellitus without complication, with long-term current use of insulin ([facility]) Use as instructed 100 each 12 025 2025 Active Alcohol Swabs (Alcohol Prep) 70 % pads USE FIVE TIMES DAILY 100 each 5 024 2024 Discontinued rosuvastatin (Crestor) 20 MG tablet TAKE 1 TABLET BY MOUTH EVERY EVENING 30 tablet 11 025 2024 Discontinued(A llergic response) Active Problems Problem Noted Date Diagnosed Date Obesity, morbid 05/28/2024 Diverticulosis 06/20/2023 Other sleep apnea 06/20/2023 Hypertensive disorder 01/28/2014 Hypercholesterolemia 12/25/2012 Type II diabetes mellitus 12/25/2012 Encounters Date Type Department Care Team Description 02/04/2025 5:40 PM EDT Office Visit [facility] [address] [place] [address] Selena Rhoades, MAURILIO Muscle pain (Primary Dx); Hypertriglyceridemia 02/04/2025 Telephone [facility] [address] [place] [address] Qamar Mittal CNP 02/04/2025 Travel 02/04/2025 Telephone [facility] [address] [place] [address] Whitney Mina MA Chart Prep 02/03/2025 Telephone [facility] [address] [place] [address] Daiana Trevino MD 01/27/2025 2:00 PM EDT Office Visit [facility] [address] [place] [address] Luis Miguel Delatorre, JEFERSON Partial edentulism, unspecified edentulism class (Primary Dx) 01/23/2025 Refill [facility] [address] [place] [address] Daiana Trevino MD 01/21/2025 Refill [facility] [address] [place] [address] Daiana Trevino MD Type 2 diabetes mellitus without complication, with long-term current use of insulin ([facility]) 01/13/2025 2:00 PM EDT Office Visit [facility] [address] [place] [address] Jerry Griffin Partial edentulism, unspecified edentulism class (Primary Dx); Dental calculus 01/07/2025 Travel 01/06/2025 Travel 12/29/2024 11:15 AM EDT Office Visit [facility] [address] [place] [address] Daiana Trevino MD Primary hypertension (Primary Dx); Type 2 diabetes mellitus without complication, with long-term current use of insulin ([facility]); Hypercholesterolemia 12/29/2024 Travel 12/28/2024 Travel 12/26/2024 Telephone [facility] [address] [place] [address] Daiana Trevino MD Chart Prep 12/24/2024 10:00 AM EDT Office Visit [facility] [address] [place] [address] Flako Briones DMD 12/24/2024 Travel 12/19/2024 Refill [facility] [address] [place] [address] Daiana Trevino MD Type 2 diabetes mellitus without complication, without long-term current use of insulin ([facility]) 12/10/2024 8:45 AM EDT Office Visit [facility] [address] [place] [address] Flako Briones DMD History of tooth extraction, unspecified edentulism class (Primary Dx) 12/09/2024 Refill [facility] [address] [place] [address] Daiana Trevino MD 12/03/2024 2:30 PM EDT Office Visit [facility] [address] [place] [address] Ann-Marie Sage MD Preop examination (Primary Dx); Primary hypertension; Other sleep apnea 12/03/2024 Travel 11/30/2024 Results Follow-Up [facility] [address] [place] [address] Daiana Trevino MD Basic Metabolic Panel, Lipid Panel, Standard, Hepatic Function Panel, Albumin, Random Urine W/Creatinine 11/26/2024 Refill [facility] [address] [place] [address] Daiana Trevino MD Type 2 diabetes mellitus without complication, without long-term current use of insulin (CMS/HCC) 11/17/2024 Telephone [facility] [address] [place] [address] Daiana Trevino MD 11/17/2024 Orders Only [facility] [address] [place] [address] Daiana Trevino MD Type 2 diabetes mellitus without complication, with long-term current use of insulin (CMS/HCC) (Primary Dx) 11/14/2024 Refill [facility] [address] [place] [address] Daiana Trevino MD from Last 3 Months Immunizations Immunization Administration Dates Next Due Influenza, IIV3, injectable [...] EDT Inhaled Oxygen Concentration - - Weight 92.5 kg (204 lb) 12/29/2024 11:29 AM EDT Height 154.9 cm (5' 1 ) 02/04/2025 5:44 PM EDT Body Mass Index 38.55 12/29/2024 11:29 AM EDT Plan of Treatment Upcoming Encounters Date Type Department Care Team (Late st Contact Info) Description 02/11/2025 1:00 PM EDT Office Visit [facility] [address] [place], [place] [phone] Luis Miguel Delatorre, DMD [address] [place] [address] 02/19/2025 1:00 PM EDT Office Visit [facility] [address] [place] [address] Qamar Mittal, ATTENDING AMBULATORY CARE [address] [place] [address] Health Maintenance Due Date Last Done Comments Eye Exam 10/15/1955 Hepatitis C Screening 10/15/1963 Zoster Vaccines (1 of 2) 10/15/1995 RSV Patients and Patients Aged 60 years or older (1 - 1-dose 75+ series) 2020 Diabetes: Foot Exam 06/20/2024 06/20/2023, 06/20/2023, 06/20/2023, Additional history exists COVID-19 Vaccine ( season) 2024 01/14/2024, 02/22/2023, 03/14/2022, Additional history exists Influenza Vaccine (#1) 2024 4, 03/26/2013, 01/19/2012 Diabetes: Hemoglobin A1C 01/22/2025 025, 01/28/2024, 06/20/2023, Additional history exists Dental Oral Exam 07/14/2025 01/13/2025, 08/2024, 11/22/2023, Additional history exists Dental Prophylaxis 07/14/2025 01/13/2025, 0 06/25/2024, 11/22/2023, Additional history exists SDOH Screening 10/15/2025 10/15/2024 Diabetes: Urine Protein Screening 11/17/2025 11/17/2024 Lipid Panel 11/17/2025 11/17/2024, 02/21, 06/20/2023, Additional history exists Alcohol/Substance Use Screening 12/29/2025 12/29/2024 Depression Screening 12/29/2025 12/29/2024, 12/30/19 Dental X-Ray: Bitewings 01/14/2026 01/14/20 25, 11/22/2023, 06/02/2021, Additional history exists Tobacco Screening 02/04/2026 02/04/2025 DTaP/Tdap/Td Vaccines (2 - Td or Tdap) 06/12/2027 06/12/2017, 02/18/2007 Dental X-Ray: Full Mouth 07/11/2027 025, 11/22/2023, 01/02/2020 Pneumococcal Vaccine: 50+ Years Completed 06/20/2023, 01/08/2006 HIB Vaccines Aged Out No longer eligi [...] patient's age to complete this topic Meningococcal B Vaccine Aged Out No l onger eligible based on patient's age to complete [...] Procedure Name Priority Date/Time Associated Diagnosis Comments BITE REGISTRATION Routine 01/27/2025 2:0 0 PM EDT Partial edentulism, unspecified edentulism class DENTURE IMPRESSION Routine 01/13/2025 2: 00 PM EDT Partial edentulism, unspecified edentulism class PERIODIC ORAL EVALUATION - ESTABLISHED PATIENT Routine 01/13/2025 2:00 PM EDT Partial edentulism, unspecified edentulism class INTRAORAL - PERIAPICAL FIRST RADIOGRAPHIC IMAGE Routine 01/13/2025 2:00 PM EDT Partial edentulism, unspecified edentulism class BITEWINGS - 4 RADIOGRAPHIC IMAGES Routine 01/13/2025 2:00 PM EDT Partial edentulism, unspecified edentulism class CASE PRESENTATION, DETAILED AND EXTENSIVE TREATMENT PLANNING Routine 01/13/2025 2:00 PM EDT Partial edentulism, unspecified edentulism class ORAL HYGIENE INSTRUCTIONS Routine 01/13/2025 2:00 PM EDT Partial edentulism, unspecified edentulism class PROPHYLAXIS - ADULT Routine 01/13/2025 2 :00 PM EDT Partial edentulism, unspecified edentulism class INTRAORAL - PERIAPICAL EACH ADDITIONAL RADIOGRAPHIC IMAGE Routine 01/13/2025 2:00 PM EDT Partial edentulism, unspecified edentulism class POCT GLUCOSE Routine 12/29/2024 11:34 AM EDT Type 2 diabetes mellitus without complication, with long-term current use of insulin (CMS/HCC) RE-EVAL - POST-OP OFFICE VISIT Routine 12/24/2024 10:00 AM EDT LL REMOVAL OF TORUS MANDIBULARIS Routine 12/10/2024 8:45 AM EDT LR REMOVAL OF TORUS MANDIBULARIS Routine 12/10/2024 8:45 AM EDT ECG 12-LEAD Routine 12/03/2024 4:43 PM EDT Preop examination HEPATIC FUNCTION PANEL Routine 11/17/2024 10:04 AM EDT Type 2 diabetes mellitus without complication, with long-term current use of insulin (CMS/HCC) LIPID PANEL, STANDARD Routine 11/17/2024 10:04 AM EDT Type 2 diabetes mellitus without complication, with long-term current use of insulin (CMS/HCC) BASIC METABOLIC PANEL Routine 11/17/2024 10:04 AM EDT Type 2 diabetes mellitus without complication, with long-term current use of insulin (CMS/HCC) ALBUMIN, RANDOM URINE W/CREATININE Routine 11/17/2024 10:03 AM EDT Type 2 diabetes mellitus without complication, with long-term current use of insulin (CMS/HCC) POCT GLYCATED HEMOGLOBIN, TOTAL Routine 10/22/2024 11:51 AM EDT Type 2 diabetes mellitus without complication, with long-term current use of insulin (CMS/HCC) PANORAMIC RADIOGRAPHIC IMAGE Routine 07/09/2024 3:00 PM EDT Periodontal disease Dental caries from Last 3 Months or Most Recently Relevant to Health Maintenance Results * POCT Glucose (12/29/2024 11:34 AM EDT) Glucose Blood, POC 167 60 - 200 mg/dL QC Media Lot # [id number] Lot# Expiration Date Blood Capillary blood specimen / Unknown 12/29/2024 11:[address] [facility] Daiana Trevino MD POINT OF CARE TEST ENTER/EDIT OR DERABLES Final Result * ECG 12 lead (12/03/2024 4:43 PM EDT) Narrative Ann-Marie Sage MD - 12/03/2024 4:43 PM EDT HR 92 bpm, horizontal axis, intra atrial conduction delay Result [facility] Ann-Marie Sage MD ECG ORDERABLES Final Result * Hepatic Function Panel (11/17/2024 10:04 AM EDT) Bilirubin, Total 0.2 0.0 - 1.0 mg/dL [facility] Bilirubin, Direct <0.2 0.0 - 0.5 mg/dL [facility] Aspartate Amino Transferase 26 5 - 31 U/L [facility] Alanine Aminotransferase 16 0 - 31 U/L [facility] Total Protein 8.0 6.5 - 8.0 g/dL [facility] Albumin Level 4.9 3.5 - 5.0 g/dL [facility] Alkaline Phosphatase 61 39 - 117 U/L [facility] Blood Venous blood specimen / Unknown 11/17/2024 10:04 AM EDT 11/17/2024 2:[address] [facility] Daiana Trevino MD LAB BLOOD ORDERABLES Final Resul t [facility] [address] [place] [phone] * (ABNORMAL) Lipid Panel, Standard (11/17/2024 10:04 AM EDT) Triglycerides 656(H) <150 mg/dL [facility] Comment:Slight Lipemia.Jenna able Triglyceride: less than 150 mg/dLBorderline High Triglyceride 150-199 mg/dLHigh Triglyceride: 200-499 mg/dLVery High Triglyceride: greater than or equal to 5OO mg/dL Cholesterol 185 <200 mg/dL [facility] Comment:Desirable Cholestero l: less than 200 mg/dLBorderline High Cholesterol: 200-239 mg/dLHigh Cholesterol: greater than 239 mg/dL LDL Cholesterol Calculated TNP <100 mg/dL [facility] Comment:Unable to calculate the LDL. The formula of Friedwald,Degroot, and Gemma is only valid if the triglycerides areless than 400 mg/dl. HDL Cholesterol 29(L) >40 mg/dL [facility] Comment:Desirable HDL: great er than 40 mg/dL Note: This HDL assay may give artificially low results in patients with liver disease. Blood Venous blood specimen / Unknown 11/17/2024 10:04 AM EDT 11/17/2024 2:45 PM EDT us Daiana Trevino MD LAB BLOOD ORDERABLES Final Resul t [facility] [address] [place] [phone] * (ABNORMAL) Basic Metabolic Panel (11/17/2024 10:04 AM EDT) Sodium 139 135 - 145 mmol/L [facility] Potassium 4.5 3.3 - 5.1 mmol/L [facility] Chloride 97 96 - 108 mmol/L [facility] Carbon Dioxide 28 22 - 29 mmol/L [facility] Anion Gap 19 12 - 20 [facility] Urea Nitrogen (BUN) 60(H) 9 - 16 mg/dL [facility] Creatinine, Serum 1.80(H) 0.5 - 1.4 mg/dL [facility] Estimated Glomerular Filt Rate 27 [facility] Comment:Chronic Kidney Disea se: Estimated GFR < 60 mL/min/[id number] Kidney Disease: Estimated GFR < 15 mL/min/1.73m2 Glucose 209(H) 60 - 115 mg/dL [facility] Calcium 10.7(H) 8.4 - 10.2 mg/dL [facility] Blood Venous blood specimen / Unknown 11/17/2024 10:04 AM EDT 11/17/2024 2:45 PM EDT Daiana Trevino MD LAB BLOOD ORDERABLES Final Resul t Performing Organization Address [facility] Co de Phone Number [facility] [address] [place] [phone] * (ABNORMAL) Albumin, Random Urine W/Creatinine (11/17/2024 10:03 AM EDT) Creatinine, Urine 115.32 mg/dL [facility] Microalbumin Urine 99.0 mg/L [facility] Microalbum Creatinine Ratio Ur 85.8(H) <30 ug/mg cr [facility] Comment:Albumin/Creatinine R atio Reference Ranges: Normal: < 30 ug/mg creatinine Microalbuminuria: 30 - 300 ug/mg creatinineClinical Albuminuria: > 300 ug/mg creatinine 11/17/2024 10:0 3 AM EDT 11/17/2024 2:53 PM EDT Daiana Trevino MD LAB URINE ORDERABLES Final Resul t Performing Organization Address [facility] Co de Phone Number [facility] [address] [place] [phone] * (ABNORMAL) POCT HGB A1C (10/22/2024 11:51 AM EDT) Hemoglobin A1C 7.7(A) 4.0 - 5.7 % QC Media Lot # [id number] Lot# Expiration Date Blood 10/22/2024 11:5 1 AM EDT Daiana Trevino MD POINT OF CARE TEST ENTER/EDIT OR DERABLES Final Result from Last 3 Months or Most Recently Relevant to Health Maintenance Insurance [facility] DUAL COMPLETE [facility] - [facility] Care Teams Flat Knitter Relationship Specialty Start Date End Date Qmaar Mittal CNP [address] [place] [address] [place] [address] PCP - General Family Medicine 02/04/25
--- OUTSIDE RECORDS SUMMARY | 2025-02-06 12:16 | XMS_ITS | Encounter Summary ---
Author Organization [employer] Address [address] [facility] 7t [place] [address] Care Team Providers Care Vibration Technician Name Role Phone Kyrie Taygeorge DEE Primary Care Provider [phone] Reason for Visit * Reason Onset Date Comments Chart Prep 02/04/2025 Encounter Details Date Type Department Care Team ([facility] st Contact Info) Description 02/04/2025 Telephone [facility] [address] [place] [address] Whitney Mina MA Chart Prep Social History Tobacco Use Types Packs/Day Years [...] encounter Miscellaneous Notes * Telephone Encounter - Whitney Mina MA - 02/04/2025 11:31 AM EDT Chart Prep Labs: not done Images: done Referrals: not applicable Vaccines due: Covid, Flu, RSV, and Zoster Screenings: eye exam and foot exam Overdue care gaps: A1c, Glucose, and Tobacco documented in this encounter Plan of Treatment Upcoming Encounters Date Type Department Care Team (Late st Contact Info) Description 02/11/2025 1:00 PM EDT Office Visit [facility] [address] [place] [address] Luis Miguel Delatorre DMD [address] [place] [address] 02/19/2025 1:00 PM EDT Office Visit [facility] [address] [place] [address] Qamar Mittal CNP [address] [place] [address] documented as of this encounter Visit Diagnoses Not on filedocumented in this encounter Additional Health Concerns Assessment Noted Time PHQ-9 Depression Total Score: 0 12/30/19 11:36 AM EDT documented as of this encounter Care Teams Vibration Technician Relationship Specialty Start Date End Date Qamar Mittal CNP [address] [place] [phone] PCP - General Family Medicine 02/04/25 documented as of this encounter
--- OUTSIDE RECORDS SUMMARY | 2025-02-06 12:16 | XMS_ITS | Encounter Summary ---
Author Organization [employer] [facility] Address [address] [place] [address] 7 [place] [address] Care Team Providers Care Chainstitch Elastic Attacher Name Role Phone Qamar Mittal CNP Primary Care Provider [phone] Encounter Details Date Type Department Care Team (Late st Contact Info) Description 12/27/2022 Orders Only [facility] [address] [place] [address] Shannen Kerr LPN Social History Tobacco Use [...] 1:00 PM EDT Office Visit [facility] [address] [place] [address] Luis Miguel Delatorre, JEFERSON [address] [place] [address] 02/19/2025 1:00 PM EDT Office Visit [facility] [address] [place] [address] Qamar Mittal CNP [address] [place] [address] documented as of this encounter Visit Diagnoses Not on filedocumented in this encounter Care Teams Chainstitch Elastic Attacher Relationship Specialty Start Date End Date Qamar Mittal CNP [address] [place], [place] [address] [address] PCP - General Family Medicine 02/04/25 documented as of this encounter
--- OUTSIDE RECORDS SUMMARY | 2025-02-06 12:16 | XMS_ITS | Encounter Summary ---
Author Organization [employer] [facility] Address [address] [place] [address] 7 [place] [address] Care Team Providers Care Machine Tool Dresser Name Role Phone Qamar Mittal CNP Primary Care Provider [phone] Encounter Details Date Type Department Care Team (Late st Contact Info) Description 08/18/2022 Orders Only [facility] [address] [place] [address] Melanie Henson LPN Social History Tobacco Use [...] Visit [facility] [address] [place] [address] Luis Miguel Delatorre, JEFERSON [address] [place] [address] 02/19/2025 1:00 PM EDT Office Visit [facility] [address] [place] [address] Qamar Mittal CNP [address] [place] [address] documented as of this encounter Visit Diagnoses Not on filedocumented in this encounter Care Teams Machine Tool Dresser Relationship Specialty Start Date End Date Qamar Mittal CNP [address] [place], [place] [address] [address] PCP - General Family Medicine 02/04/25 documented as of this encounter
--- OUTSIDE RECORDS SUMMARY | 2025-02-06 12:16 | XMS_ITS | Encounter Summary ---
Author Organization [employer] Address [address] [facility] 7t [place] [address] Care Team Providers Care Automotive Drivability Technician Name Role Phone Qamar Mittal CNP Primary Care Provider [phone] Encounter Details Date Type Department Care Team ([facility] Contact Info) Description 02/04/2025 Telephone [facility] [address] [place], [place] [phone] Qamar Mittal CNP [address] [place] [address] Social History Tobacco Use Types Packs/Day Years [...] encounter Miscellaneous Notes * Telephone Encounter - Scott Conway - 02/04/2025 4:34 PM EDT Tc from franki from [facility] requesting ICD 10 codes. It is a requirement due to patient getting annual apt with [facility]. Contact franki at [phone] documented in this encounter Plan of Treatment Upcoming Encounters Date Type Department Care Team (Late st Contact Info) Description 02/11/2025 1:00 PM EDT Office Visit [facility] [address] [place] [address] Luis Miguel Delatorre DMD [address] [place] [address] 02/19/2025 1:00 PM EDT Office Visit [facility] [address] [place] [address] Qamar Mittal CNP [address] [place] [address] documented as of this encounter Visit Diagnoses Not on filedocumented in this encounter Additional Health Concerns Assessment Noted Time PHQ-9 Depression Total Score: 0 12/30/19 25 11:36 AM EDT documented as of this encounter Care Teams Automotive Drivability Technician Relationship Specialty Start Date End Date Qamar Mittal CNP [address] [place] [address] PCP - General Family Medicine 02/04/25 documented as of this encounter
--- OUTSIDE RECORDS SUMMARY | 2025-02-06 12:16 | XMS_ITS | Encounter Summary ---
Author Organization [employer] Address [address] [place] [address] Care Team Providers Care Ring Making Machine Operator Name Role Phone Qamar Mittal CNP Primary Care Provider +1 [phone] Reason for Visit * Reason Comments Med Refill Encounter Details Date Type Department Care Team ([facility] Contact Info) Description 03/12/2024 Refill [facility] MED & PEDS [address] [place], [place] [phone] Daiana Trevino MD 505 [place] [address] Social History Tobacco Use Types Packs/Day Years [...] 02/11/2025 1:00 PM EDT Office Visit [facility] ADULT [facility] [address] [place] [address] Luis Miguel Delatorre, DMD [address] [place] [address] 02/19/2025 1:00 PM EDT Office Visit [facility] MED [facility] PEDS [address] [place] [address] Qamar Mittal CNP 505 [place] [address] documented as of this encounter Visit Diagnoses Not on filedocumented in this encounter Additional Health Concerns Assessment Noted Time PHQ-9 Depression Total Score: 5 06/20/19 24 9:37 AM EST documented as of this encounter Care Teams Ring Making Machine Operator Relationship Specialty Start Date End Date Qamar Mittal CNP 505 [place] [address] PCP - General Family Medicine 02/04/25 documented as of this encounter
--- OUTSIDE RECORDS SUMMARY | 2025-02-06 12:16 | XMS_ITS | Encounter Summary ---
Author Organization [employer] [facility] Address [address] [place] [address] 7 [place] [address] Care Team Providers Care Blower Feeder Dyed Raw Stock Name Role Phone Qamar Mittal CNP Primary Care Provider +1 [phone] Encounter Details Date Type Department Care Team (Latest Contact Info) Description 01/02/2020 Abstract [facility] CONVERSIONS Dental, Provider, DDS Social History [...] 1:00 PM EDT Office Visit [facility] ADULT DENTAL 505 [place] [address] Luis Miguel Delatorre DMD 505 [place] [address] 02/19/2025 1:00 PM EDT Office Visit [facility] MED & PEDS [address] [place] [address] Qamar Mittal CNP 505 [place] [address] documented as of this encounter Visit Diagnoses Not on filedocumented in this encounter Care Teams Blower Feeder Dyed Raw Stock Relationship Specialty Start Date End Date Qamar Mittal CNP [address] [place] [address] PCP - General Family Medicine 02/04/25 documented as of this encounter
--- OUTSIDE RECORDS SUMMARY | 2025-02-06 12:16 | XMS_ITS | Encounter Summary ---
Author Organization [employer] Address [address] 7[address] [place] [address] Care Team Providers Care Lpn Rn Hospice Name Role Phone MittalTaykarlenehugo LEILA Primary Care Provider +1 [phone] Encounter Details Date Type Department Care Team (Latest Contact Info) Description 02/04/2025 Travel Social History Tobacco Use Types Packs/Day Years [...] 02/11/2025 1:00 PM EDT Office Visit [facility] ADULT DENTAL [address] [place] [address] Luis Miguel Delatorre DMD 505 [place] [address] 02/19/2025 1:00 PM EDT Office Visit [facility] MED & PEDS [address] [place] [address] Qamar Mittal CNP [address] [place] [address] documented as of this encounter Visit Diagnoses Not on filedocumented in this encounter Additional Health Concerns Assessment Noted Time PHQ-9 Depression Total Score: 0 12/30/19 11:36 AM EDT documented as of this encounter Care Teams Lpn Rn Hospice Relationship Specialty Start Date End Date Qamar Mittal CNP [address] [place] [address] PCP - General Family Medicine 02/04/25 documented as of this encounter
[2025-02-06 16:19] LABS: Alanine Aminotransferase 11 U/L (0-31); Albumin Level 4.6 g/dL (3.5-5.0); Alkaline Phosphatase 48 U/L (39-117); Anion Gap 17 (12-20); Aspartate Amino Transferase 29 U/L (5-31); Blood Urea Nitrogen 49 mg/dL (9-16); Calcium 10.5 mg/dL (8.4-10.2); Carbon Dioxide 24 mmol/L (22-29); Chloride 105 mmol/L (96-108); Cholesterol 152 mg/dL (<200); Estimated Glomerular Filt Rate 27; HDL Cholesterol 27 mg/dL (>40); Potassium 4.3 mmol/L (3.3-5.1); Sodium 142 mmol/L (135-145); Total Protein 7.1 g/dL (6.5-8.0); Triglycerides 430 mg/dL (<150)
== END 2025-02-06 10:20 | disposition home or self-care (01) ==
LOC: HO.CHCLDS 10:19
PROVIDERS: Visit Provider Student in an Organized Health Care Education/Training Program
DX: I10 Essential (primary) hypertension (principal); E11.9 Type 2 diabetes mellitus without complications; E78.00 Pure hypercholesterolemia, unspecified; Z79.4 Long term (current) use of insulin
CPT/HCPCS: 36415; 80048; 80061; 80076; 83036

== ENCOUNTER 2025-03-05 13:07 | Outpatient (REF) | payer OTHER, SELFPAY ==
--- NOTE | ~2025-03-05 | US_ITS ---
EXAMINATION: US PELVIS CLINICAL INFORMATION: Uterine fibroid. COMPARISON: August 08, 2024. Correlated to CT abdomen and pelvis dated September 29, 2024. TECHNIQUE: Ultrasound of the pelvis is performed using both transabdominal and transvaginal transducers along with Doppler. Transvaginal imaging is performed due to inadequate visualization transabdominally. FINDINGS: Uterus: The uterus is anteversion flexion and measures 9 x 4 x 5 cm. Volume: 95 cc. The double wall endometrial thickness is 14 mm. There is a 2.1 cm mixed iso to hyperechoic lesion in the body fundus junction of the endometrium. There is a 1.8 cm slightly exophytic mixed hypoechoic soft tissue lesion in the right lateral lower body cervix junction without gross calcifications or flow on color Doppler interrogation. Adnexa: The right ovary is not identified.. The left ovary is identified with flow on color Doppler interrogation. No gross solid or cystic lesion. No free fluid in the cul-de-sac. Left ovary measures 3 x 3 x 3 cm. Volume: 20 cc. US/US pelvic and transvaginal IMPRESSION: 14 mm thickened endometrial stripe, abnormal in a postmenopausal woman. 2.1 cm soft tissue lesion, endometrium. Consider submucosal fibroid versus malignancy. 1.8 cm subserosal uterine fibroid. Right ovary is not identified. Left ovary is normal. Electronically signed by: Dov De Guzman MD 03/05/2025 02:06 PM [facility]
--- OUTSIDE RECORDS SUMMARY | 2025-03-05 16:25 | XMS_ITS | Encounter Summary ---
Author Organization [employer] Address [address] [facility] 7t [place] [address] Care Team Providers Care On Awake Counselor Name Role Phone Kyrie Taygeorge DEE Primary Care Provider [phone] [phone] Reason for Visit * Reason Onset Date Comments Referral 03/21/2023 Encounter Details Date Type Department Care Team ([facility] st Contact Info) Description 03/21/2023 Telephone [facility] MEDICINE [address] [place] [address] Daiana Trevino MD [address] [place] [address] Referral Social History Tobacco Use Types Packs/Day [...] from patient requesting a new referral for [facility] justowriter operator did call facility and needs a renewal on referral due to previous referral expiring in September [facility] documented in this encounter Plan of Treatment Upcoming Encounters Date Type Department Care Team (Late st Contact Info) Description 03/09/2025 3:00 PM EST Office Visit [facility] ADULT D[facility]AL [address] [place], [place] [phone] Luis Miguel Delatorre, DMD 505 [place], [place] [phone] 04/21/2025 3:15 PM EST Office Visit [facility] MED & PEDS [address] [place], [place] [phone] Qamar Mittal CNP [address] [place], [place] [phone] documented as of this encounter Visit Diagnoses Not on filedocumented in this encounter Care Teams On Awake Counselor Relationship Specialty Start Date End Date Qamar Mittal CNP [address] [place], [place] [phone] PCP - General Family Medicine 02/04/25 documented as of this encounter
--- OUTSIDE RECORDS SUMMARY | 2025-03-05 16:25 | XMS_ITS | Encounter Summary ---
Author Organization [employer] Address [address] 7t [place] [address] Care Team Providers Care Property Management Supervisor Name Role Phone Qamar Mittal CNP Primary Care Provider [phone] [phone] Reason for Visit * Reason Comments Med Refill Encounter Details Date Type Department Care Team ([facility] Contact Info) Description 02/07/2025 Refill [facility] CHC MED & PEDS [address] [place], [place] [phone] Daiana Trevino MD 505 [place] [address] Social History Tobacco Use Types Packs/Day Years [...] Description 03/09/2025 3:00 PM EST Office Visit [facility] ADULT DENTAL 505 [place] [address] Luis Miguel Delatorre, DMD [address] [place] [address] 04/21/2025 3:15 PM EST Office Visit [facility] MED & PEDS [address] [place] [address] Qamar Mittal CNP [address] [place] [address] documented as of this encounter Visit Diagnoses Not on filedocumented in this encounter Additional Health Concerns Assessment Noted Time PHQ-9 Depression Total Score: 0 12/30/19 11:36 AM EDT documented as of this encounter Care Teams Property Management Supervisor Relationship Specialty Start Date End Date Qamar Mittal CNP [address] [place] [address] PCP - General Family Medicine 02/04/25 documented as of this encounter
--- OUTSIDE RECORDS SUMMARY | 2025-03-05 16:25 | XMS_ITS | Continuity of Care Document ---
Author Organization [facility], [facility] [place] 2nd floor Address [address] [place] [address] Assessment Encounter Date Assessment Date Assessment LastModified by Organization Details LastModified Time 02/16/2025 02/16/2025 I am seeing the patient today under the supervision of Dr. Obrien who was available but who did not [...] of continued conservative management versus surgical management. [email or web address] Not available 02/15/2025 19:44:57 Plan of Treatment Reminders Order Date Submit Date Provider Last Modified By Organization Details Last Modified Time Details Appointments RECHECK 15 2025 03:00P M Chi Vadim, PA-C Not available Not available Not available Lab None recorded. Referral None recorded. Procedures None recorded. Surgeries None recorded. Imaging XR, knee, 4 or more view - bilateral knee xrays. rm 211 2024 025 [facility], [address], [place], [address], 02/25/2025 12:37:32 Medication Orders None recorded. Patient TargetsNo targets recorded. Patient InstructionsNo instructions recorded. Reason for Referral None Reported. Results Created Date Observation Date Name Description Value Unit Range Abnormal Flag Note LastModifiedBy Organization Detail LastModifiedTime 02/17/2002/16/2025 XR, knee, 4 or more view http:/ [email or web address] ?Encry pted=s hAaTro YD8dLq bEUv6g %2BXZw aYqtaq 0bqfl% 2Fg9IQ a4ajBk vP9nXo QUaueC m3YtLR FvZlgJ JJ8mAn HZtai3 7w2588 AC0KlY nmGU6a iKiQtr MwF INTERFACE [facility] [address], [place], [address], 02/16/2025 09:50:23 02/17/2002/16/2025 XR, knee, 4 or more view http:/ [email or web address] ?Encry pted=s hAaTro YD8dLq bEUv6g %2BXZw aYqtaq 0bqfl% 2Fg9IQ a4ajBk vP9nXo QUaueC m3YtLR FvZlgJ JJ8mAn HZtai3 1t1186 AC0KlY nmGU6a iKiQtr MwF INTERFACE [facility] [address], [place], [address], 02/16/2025 09:50:25 Result Notes Documentation Provider Name and Address Organization Details Recorded Time Xr, Knee, 4 Or More View : [email or web address]? Encrypted=nxYcHlwWM2pPgvG Uv6g%2TEVbcGrxwc7iwsj%2Fg 0MDc7ljJpjM2gRqHYgkvRy3Gg AROlTodWIV8qYrDQsmh31z148 0IQ6VsSkeWD1lrTiEqtLrT Not Available Critical access hospital 02/16/2025 09:50: 24 Xr, Knee, 4 Or More View : [email or web address]? Encrypted=wnDtShhUW9nKsdA Uv6g%2AAErtRbtjr9bdzg%2Fg 4VAo9cyKslW9wTlDOtieSd7Dg WDJgOnyFQI1rEhWOhci23w903 9DH8GoUfmQF6pvJrEqoGcW Not Available Critical [facility] hospital 02/16/2025 09:50: 25 Problems Name Problem SNOMED Code Status Onset Date Resolution Date Notes Provider Name and Address Organization Details Recorded Time Pain of bilateral knee regions 44457582132865 2 Active 2024 ELFEGO LEI [facility] 09:39:45 Problem Notes None recorded. Procedures Surgical History Date Name Laterality Status Provider Name and Address Organization Details Recorded Time 02/16/2025 JZKNEE INJ Frankie completed Cih Fierro PA-C [address] [facility], [place], [address], [facility] 02/15/2025 19:44:52 10/30/2024 JZKNEE INJ Frankie completed Chi Fierro PA-C [address] [facility], [place], [address], [facility] 10/29/2024 14:59:39 06/16/2024 JZKNEE INJ Frankie completed Chi Firero PA-C [address], [place], [address], [facility] 06/16/2024 08:05:41 06/09/2024 JZKNEE INJ Frankie cancelled Chi Fierro PA-C [address], [place], [address], [facility] 06/09/2024 12:48:39 03/06/2024 JZKNEE INJ Frankie completed Chi Fierro PA-C [address], [place], [address], [facility] 03/05/2024 14:36:22 12/04/2023 JZKNEE INJ Frankie completed Chi Fierro PA-C [address], [place], [address], [facility] 12/04/2023 08:17:20 09/06/2023 Sports Knee 4&1 completed Chi Fierro PA-C [address], [place], [address], [facility] 09/06/2023 12:35:54 Imaging Results None recorded. Procedure Notes None recorded. Medical Equipment None Reported. Allergies No known drug allergies Medications Name Sig Start Date Stop Date Status Note LastModified by Organization Details LastModified Time medbox status USE DIRECTED active Not Available Not Available No t Available amoxicillin 500 mg capsule TAKE ONE CAPSULE BY MOUTH EVERY 12 HOURS FOR SEVEN DAYS 02/13 completed Not Available Not Available Not Available acetaminoph en 325 mg tablet TAKE [...] Not Available Not Available No t Available Accu-Chek Softclix Lancets TEST BLOOD SUGAR TWICE DAILY 02/16 completed Not Available Not Available Not Available penicillin V potassium 500 mg tablet [...] completed Not Available Not Available Not Available gemfibrozil 600 mg tablet TAKE ONE [...] Not Available Not Available No t Available furosemide 20 mg tablet TAKE ONE TABLET EVERY MORNING [...] BEDTIME NOTHING BY MOUTH FOR 30 MINUTES 02/16 completed Not Available Not Available Not Available loratadine 10 mg tablet TAKE ONE TABLET EVERY EVENING active Not Available Not Available No t Available amoxicillin 875 mg-potassiu m clavulanate 125 mg tablet TAKE 1 TABLET BY MOUTH TWICE DAILY FOR 7 DAYS active Not Available Not Available No t Available oxycodone 5 mg tablet Take 1 tablet (5 mg) by mouth every 6 (six) hours if needed for severe pain for up to 5 days. 02/16 completed Not Available Not Available Not Available rosuvastati n 10 mg tablet TAKE ONE TABLET EVERY EVENING 02/16 completed Not Available Not Available Not Available rosuvastati n 20 mg tablet TAKE ONE TABLET EVERY EVENING 02/16 completed Not Available Not Available Not Available Alcohol Prep Pads USE FIVE TIMES DAILY 02/16 completed Not Available Not Available Not Available omega-3 acid ethyl esters 1 gram capsule TAKE ONE CAPSULE IN THE MORNING AND EVENING active Not Available Not Available No t Available UltiCare Pen Needle 31 gauge x 5/16 USE ONE DAILY 02/16 completed Not Available Not Available Not Available Lantus Solostar U-100 Insulin 100 unit/mL (3 mL) subcutaneou s pen INJECT 35 UNITS SUBCUTANE OUSLY AT BEDTIME active Not Available Not Available No t Available cholecalcif teresa (vitamin D3) 50 mcg (2,000 unit) tablet TAKE ONE TABLET EVERY EVENING active Not Available Not Available No t Available Accu-Chek Guide test strips TEST BLOOD SUGAR TWICE DAILY 02/16 completed Not Available Not Available Not Available Accu-Chek Guide Me Glucose Meter TEST BLOOD SUGAR TWICE DAILY 02/16 completed Not Available Not Available Not Available Vitals Date Recorded Body height Body mass index (BMI) Body weight Provider Name and Address Organization Details Last Updated DateTime 02/16/2025 154.94 cm 37 kg/m2 79363.1 g KAYLIA L'HEUREUX [facility] 02/16/2025 09:37:43 Social History Question Answer Notes LastModified by [employer] Details LastModified Time Tobacco Smoking Status Never Smoker ELFEGO L'HEUREUX marcelino [facility] 07/11/2023 15:03:03 What Is Your Relationship Status? Single Information not available 07/11/2023 Sex: Unknown Functional Status Question Answer Note LastModified by [employer] Details LastModified Time Do you use any [...] Problems N Vascular Disease N Heart Attack (SC) N Gastrointestinal Disease N Cholesterol Y Diabetes [...] Diagnosis SNOMED-CT Code Diagnosis ICD10 Code Diagnosis IMO Codes Diagnosis Note [id number] JAIME Parikh [address] [facility] [place] [address] 02/16/2025 09:20:34 02/25/2025 12:37:32 Primary gonarthrosis, bilateral [id number] M17.0 [id number] Pain of bi lateral knee regions [id number] 93659 M25.561 M25.562 [id number] Health Concerns Section Related Observation LastModified by Organization Detai ls LastModified Time None Recorded Concern Status LastModified by Organization Details LastModified Time None Recorded Payers Encounter Date Sequence Insurance Name Policy Number Policy Collado Covered Member ID Collado Member ID Guarantor Name 02/16/2025 1 [facility] (MEDICARE REPLACEMENT/A DVANTAGE - HMO) Yuliet Underwood [id number] Yuliet Underwood OBGyn Episode No OBEpisode recorded.
--- OUTSIDE RECORDS SUMMARY | 2025-03-05 16:25 | XMS_ITS | Encounter Summary ---
Author Organization [employer] [facility] Address [address] [place] [address] 7 [place] [address] Care Team Providers Care Mink Farmer Name Role Phone Qamar Mittal CNP Primary Care Provider +1 [phone] Encounter Details Date Type Department Care Team (Late st Contact Info) Description 12/27/2022 Orders Only [facility] MED & PEDS [address] [place] [address] Shannen Kerr LPN Social History Tobacco Use [...] Description 03/09/2025 3:00 PM EST Office Visit [facility] ADULT DENTAL [address] [place] [address] Luis Miguel Delatorre, JEFERSON [address] [place] [address] 04/21/2025 3:15 PM EST Office Visit [facility] MED & PEDS [address] [place] [address] Qamar Mittal CNP 505 [place] [address] documented as of this encounter Visit Diagnoses Not on filedocumented in this encounter Care Teams Mink Farmer Relationship Specialty Start Date End Date Qamar Mittal CNP [address] [facility] [place] [address] PCP - General Family Medicine 02/04/25 documented as of this encounter
--- OUTSIDE RECORDS SUMMARY | 2025-03-05 16:25 | XMS_ITS | Encounter Summary ---
Author Organization [employer] [facility] Address [address] [place] [address] 7 [place] [address] Care Team Providers Care Solar Consultant Name Role Phone Qamar Mittal CNP Primary Care Provider +1 [phone] Encounter Details Date Type Department Care Team (Late st Contact Info) Description 02/27/2023 Orders Only [facility] MED & PEDS [address] [place] [address] Shannen Kerr LPN Social History Tobacco Use [...] 3:00 PM EST Office Visit [facility] ADULT DENTAL [address] [place] [address] Luis Miguel Delatorre, JEFERSON [address] [place] [address] 04/21/2025 3:15 PM EST Office Visit [facility] MED & PEDS [address] [place] [address] Qamar Mittal CNP [address] [place] [address] documented as of this encounter Visit Diagnoses Not on filedocumented in this encounter Care Teams Solar Consultant Relationship Specialty Start Date End Date Qamar Mittal CNP 505 [place] [address] PCP - General Family Medicine 02/04/25 documented as of this encounter
--- OUTSIDE RECORDS SUMMARY | 2025-03-05 16:25 | XMS_ITS | Clinical Summary ---
Author Organization [employer] Address [address] [place] [address] [address] [place] [address] Care Team Providers Care Sack Sorter Name Role Phone Qamar Mittal CNP Primary Care Provider [phone] Allergies No known active allergies Medications fluticasone (Flonase) 50 MCG/ACT nasal spray INHALE ONE OR TWO SPRAYS IN EACH NOSTRIL DAILY NEEDED 16 g 3 023 Active insulin pen needle (UltiCare Short Pen [place]) 31G X 8 mm miscIndicatio ns:Type 2 diabetes mellitus without complication, without long-term current use of insulin (HCC) USE ONE DAILY 100 each 5 024 Active albuterol 108 (90 Base) MCG/ACT inhaler Inhale 2 puffs every 6 (six) hours if needed for wheezing. 18 g 025 2025 Active cholecalcifer ol VITAMIN D (Vitamin D-3) 50 MCG (1999 UT) tabletIndicat ions:Type 2 diabetes mellitus without complication, without long-term current use of insulin (HCC) TAKE ONE TABLET EVERY EVENING 30 tablet 11 025 Active Docusate Sodium (DSS) 100 MG capsule TAKE ONE CAPSULE EVERY NIGHT AT BEDTIME Active loratadine (Claritin) 10 MG tablet TAKE ONE TABLET EVERY EVENING 30 tablet 5 025 Active lisinopril 10 MG tablet TAKE ONE TABLET EVERY EVENING 90 tablet 1 025 Active insulin glargine (Lantus SoloStar) 100 UNIT/ML penIndication s:Type 2 diabetes mellitus without complication, without long-term current use of insulin ([facility]) INJECT 35 UNITS SUBCUTANEOUSLY AT BEDTIME 15 mL Active acetaminophen (Tylenol) 325 MG tablet TAKE 3 TABLETS BY MOUTH EVERY 6 HOURS Active Aspirin Low Dose 81 MG chewable tablet CHEW ONE TABLET EVERY EVENING 30 tablet 11 Active omega-3 acid ethyl esters (Lovaza) 1 g capsule TAKE ONE CAPSULE IN THE MORNING AND EVENING 60 capsule 11 Active gemfibrozil (Lopid) 600 MG tablet TAKE ONE TABLET IN THE MORNING AND EVENING 60 tablet 11 Active metFORMIN (Glucophage) 1000 MG tabletIndicat ions:Type 2 diabetes mellitus without complication, without long-term current use of insulin (HCC) TAKE ONE TABLET IN THE MORNING AND EVENING 180 tablet 1 Active Blood Glucose Monitoring Suppl (ONE TOUCH ULTRA 2) w/Device kitIndication s:Type 2 diabetes mellitus without complication, with long-term current use of insulin (HCC) USE TO TEST BLOOD SUGAR ONCE A DAY 1 kit Active Alcohol Swabs (Alcohol Prep) 70 % pads USE FIVE TIMES DAILY 100 each Active glucose blood (Accu-Chek Guide Test) test stripIndicati ons:Type 2 diabetes mellitus without complication, with long-term current use of insulin ([facility]) Check sugars twice daily 100 each 025 2025 Active Blood Glucose Monitoring Suppl (Accu-Chek Guide) w/Device kitIndication s:Type 2 diabetes mellitus without complication, with long-term current use of insulin ([facility]) Check sugars twice daily 1 kit 3 Active Accu-Chek Softclix Lancets lancetsIndica tions:Type 2 diabetes mellitus without complication, with long-term current use of insulin (HCC) Use as instructed 100 each 12 025 2025 Active glipiZIDE (Glucotrol) 10 MG tablet TAKE TWO TABLETS TWICE DAILY IN THE MORNING AND EVENING 120 tablet Active triamterene-h ydroCHLOROthi azide (Dyazide) 37.5-25 MG capsule TAKE ONE CAPSULE EVERY MORNING 30 capsule 11 Active sertraline (Zoloft) 25 MG tablet TAKE ONE TABLET EVERY MORNING 30 tablet 3 Active furosemide (Lasix) 20 MG tablet TAKE ONE TABLET EVERY MORNING 30 tablet 3 Active Tirzepatide (Mounjaro) 2.5 MG/0.5ML solution auto-injector Indications:T ype 2 diabetes mellitus without complication, with long-term current use of insulin ([facility]) Inject 2.5 mg under the skin 1 (one) time per week. 2 mL Active dapagliflozin (Farxiga) 10 MGIndications :Type 2 diabetes mellitus without complication, with long-term current use of insulin ([facility]),Stage 4 chronic kidney disease (CMS/HCC) ([facility]) Take 1 tablet (10 mg) by mouth Once per day. 30 tablet 11 2025 Active glipiZIDE (Glucotrol) 10 MG tablet TAKE TWO TABLETS TWICE DAILY IN THE MORNING AND EVENING 120 tablet 11 2024 Discontinued triamterene-h ydroCHLOROthi azide (Dyazide) 37.5-25 MG capsule TAKE ONE CAPSULE EVERY MORNING 30 capsule 11 2024 Discontinued glucose blood (TextinglyTouch Ultra Test) test stripIndicati ons:Type 2 diabetes mellitus without complication, without long-term current use of insulin ([facility]) TEST BLOOD SUGAR FOUR TIMES DAILY 100 strip 5 2024 Discontinued(M ed list cleanup (will not trigger notification to Pharmacy)) sertraline (Zoloft) 25 MG tablet TAKE ONE TABLET EVERY MORNING 30 tablet 2 2024 Discontinued furosemide (Lasix) 20 MG tablet TAKE ONE TABLET EVERY MORNING 30 tablet 1 2024 Discontinued rosuvastatin (Crestor) 20 MG tablet TAKE 1 TABLET BY MOUTH EVERY EVENING 30 tablet 11 2024 Discontinued(A llergic response) Active Problems Problem Noted Date Diagnosed Date Obesity, morbid 05/28/2024 Diverticulosis 06/20/2023 Other sleep apnea 06/20/2023 Hypertensive disorder 01/28/2014 Hypercholesterolemia 12/25/2012 Type II diabetes mellitus 12/25/2012 Assessment & Plan (02/19/2025 3:15 PM EDT): A1c above goal >7 Maintenance BMP: up to date Microalbumin: up to date Foot Exam: completed today Eye Exam: last exam 04/2023, due Lipid panel: UTD Statin: discontinued due to AE ASA: yes MARTÍN/ARB: yes Treatment Goals: A1c goal: <7% FBG goal: <130 2 hour post prandial goal: <180 Advised Low sugar and Low carb diet. Counseled regarding self-monitoring of blood glucose. Counseled re: potential co-morbidities including cardiovascular disease. Counseled re: potential co-morbidities include neuropathy and retinopathy. Counseled re: potential co-morbidities include nephropathy. Pt to f/u for RN visit for BG monitoring teaching. We will initiate Mounjaro 2.5 mg and continue to monitor A1c. Reviewed side effects of new medication, mechanism of action and instructions for use. F/u 3 mos. Orders: Tirzepatide (Mounjaro) 2.5 MG/0.5ML solution auto-injector; Inject 2.5 mg under the skin 1 (one) time per week. POCT A1c POCT glucose manually resulted dapagliflozin (Farxiga) 10 MG; Take 1 tablet (10 mg) by mouth Once per day. Encounters Date Type Department Care Team Description 03/05/2025 Orders Only [facility] External Provider, [facility] 02/26/2025 2:00 PM EST Office Visit [facility] [address] [place] [address] Luis Miguel Delatorre, JEFERSON Partial edentulism, unspecified edentulism class (Primary Dx); Periodontal disease 02/19/2025 1:00 PM EDT Office Visit [facility] [address] [place] [address] Qamar Mittal CNP Stage 4 chronic kidney disease (CMS/HCC) (HCC) (Primary Dx); Type 2 diabetes mellitus without complication, with long-term current use of insulin (HCC); Encounter for vaccination; Anxiety 02/19/2025 Travel 02/17/2025 Refill [facility] [address] [place] [address] Daiana Trevino MD 02/11/2025 1:00 PM EDT Office Visit [facility] [address] [place] [address] Luis Miguel Delatorre, DMD Partial edentulism, unspecified edentulism class (Primary Dx) 02/11/2025 Patient Outreach [facility] [address] [place] [phone] Qamar Mittal CNP Pre-visit Planning (SDOH screening completed on 10/15/24) 02/10/2025 Travel 02/07/2025 Refill [facility] [address] [place] [address] Daiana Trevino MD 02/04/2025 5:40 PM EDT Office Visit [facility] [address] [place] [phone] Selena Rhoades NP Muscle pain (Primary Dx); Hypertriglyceridemia 02/04/2025 Telephone [facility] [address] [place] [address] Qamar Mittal CNP ICD-10 CODE 02/04/2025 Travel 02/04/2025 Telephone [facility] [address] [place] [address] Whitney Mina MA Chart Prep 02/03/2025 Telephone [facility] [address] [place] [address] Daiana Trevino MD 01/27/2025 2:00 PM EDT Office Visit [facility] [address] [place] [address] Luis Miguel Delatorre, DMD Partial edentulism, unspecified edentulism class (Primary Dx) 01/23/2025 Refill [facility] [address] [place] [address] Daiana Trevino MD 01/21/2025 Refill [facility] [address] [place] [phone] Daiana Trevino MD Type 2 diabetes mellitus without complication, with long-term current use of insulin (HCC) 01/13/2025 2:00 PM EDT Office Visit [facility] [address] [place] [address] Beauzile, Jerry Partial edentulism, unspecified edentulism class (Primary Dx); Dental calculus 01/07/2025 Travel 01/06/2025 Travel 12/29/2024 11:15 AM EDT Office Visit [facility] [address] [place] [address] Daiana Trevino MD Primary hypertension (Primary Dx); Type 2 diabetes mellitus without complication, with long-term current use of insulin ([facility]); Hypercholesterolemia 12/29/2024 Travel 12/28/2024 Travel 12/26/2024 Telephone [facility] [address] [place] [address] Daiana Trevino MD Chart Prep 12/24/2024 10:00 AM EDT Office Visit [facility] [address] [place] [address] Flako Briones DMD 12/24/2024 Travel 12/19/2024 Refill [facility] [address] [place] [address] Daiana Trevino MD Type 2 diabetes mellitus without complication, without long-term current use of insulin ([facility]) 12/10/2024 8:45 AM EDT Office Visit [facility] [address] [place] [address] Flako Briones DMD History of tooth extraction, unspecified edentulism class (Primary Dx) 12/09/2024 Refill [facility] [address] [place] [address] Daiana Trevino MD 12/03/2024 2:30 PM EDT Office Visit [facility] [address] [place] [address] Ann-Marie Sage MD Preop examination (Primary Dx); Primary hypertension; Other sleep apnea 12/03/2024 Travel from Last 3 Months Immunizations Immunization Administration Dates Next Due Influenza, IIV3, injectable 01/28/2014 Influenza, Split (incl. regulo fied surface antigen) 03/26/2013,01/19/2012 Pfizer Covid-19 Vaccine 12+ 02/19/2025, 4,02/22/2023 Pneumococcal Conjugate PCV 20 06/20/2023 Pneumococcal Polysaccharide [...] Sign Reading Time Taken Comments Blood Pressure 130/60 02/26/2025 3:01 PM EST Pulse 76 02/19/2025 1:07 PM EDT Temperature 36.3 C (97.3 F) 02/19/2025 1:07 PM EDT Respiratory Rate 18 02/19/2025 1:07 PM EDT Oxygen Saturation 98% 02/19/2025 1:07 PM EDT Inhaled Oxygen Concentration - - Weight 93.4 kg (206 lb) 02/19/2025 1:07 PM EDT Height 154.9 cm (5' 1 ) 02/19/2025 1:07 PM EDT Body Mass Index 38.92 02/19/2025 1:07 PM EDT Plan of Treatment Upcoming Encounters Date Type Department Care Team (Late st Contact Info) Description 03/09/2025 3:00 PM EST Office Visit [facility] [address], [place] [phone] Luis Miguel Delatorre, DMD [address] [place] [address] 04/21/2025 3:15 PM EST Office Visit [facility] [address], [place] [phone] Qamar Mittal, PREPRESS PROOFER [address] [place], [place] [phone] Health Maintenance Due Date Last Done Comments Eye Exam 10/15/1955 Hepatitis C Screening 10/15/1963 Zoster Vaccines (1 of 2) 10/15/1995 RSV Patients and Patients Aged 60 years or older (1 - 1-dose 75+ series) 2020 Influenza Vaccine (#1) 2024 4, 03/26/2013, 01/19/2012 Diabetes: Hemoglobin A1C 05/22/2025 025, 02/06/2025, 10/22/2024, Additional history exists Dental Oral Exam 07/14/2025 01/13/2025, 08/2024, 11/22/2023, Additional history exists Dental Prophylaxis 07/14/2025 01/13/2025, 0 06/25/2024, 11/22/2023, Additional history exists COVID-19 Vaccine ( season) 2025 02/19/2025, 01/14/2024, 02/22/2023, Additional history exists SDOH Screening 10/15/2025 10/15/2024 Diabetes: Urine Protein Screening 11/17/2025 11/17/2024 Alcohol/Substance Use Screening 12/29/2025 12/29/2024 Depression Screening 12/29/2025 12/29/2024, 12/30/19 Dental X-Ray: Bitewings 01/14/2026 01/14/20, 11/22/2023, 06/02/2021, Additional history exists Lipid Panel 02/06/2026 02/06/2025, 10/22, 03/07/2024, Additional history exists Diabetes: Foot Exam 02/19/2026 02/19/2025, 02/19/2025, 02/19/2025, Additional history exists Tobacco Screening 02/26/2026 02/26/2025 DTaP/Tdap/Td Vaccines (2 - Td or Tdap) [...] Procedure Name Priority Date/Time Associated Diagnosis Comments US PELVIS TRANSVAGINAL Routine 03/05/2025 1:15 PM EST 2,3,15 MAXILLARY PARTIAL DENTURE - RESIN BASE (INCLUDING, RETENTIVE/CLASPING MATERIALS, RESTS, AND TEETH) Routine 02/26/2025 2:00 PM EST Partial edentulism, unspecified edentulism class 30,29,28,26,25,24,20, 19,18,31 MANDIBULAR PARTIAL DENTURE - RESIN BASE (INCLUDING, RETENTIVE/CLASPING MATERIALS, RESTS, AND TEETH) Routine 02/26/2025 2:00 PM EST Partial edentulism, unspecified edentulism class 26 EXTRACTION, ERUPTED TOOTH OR EXPOSED ROOT (ELEVATION/FORCEPS REMOVAL) Routine 02/26/2025 2:00 PM EST Periodontal disease POCT GLUCOSE Routine 02/19/2025 2:04 PM EDT Type 2 diabetes mellitus without complication, with long-term current use of insulin (HCC) POCT GLYCATED HEMOGLOBIN, TOTAL Routine 02/19/2025 2:03 PM EDT Type 2 diabetes mellitus without complication, with long-term current use of insulin (HCC) WAX TRY IN Routine 02/11/2025 1:00 PM EDT Partial edentulism, unspecified edentulism class HEMOGLOBIN A1C Routine 02/06/2025 10:20 AM EDT Type 2 diabetes mellitus without complication, with long-term current use of insulin (HCC) HEPATIC FUNCTION PANEL Routine 02/06/2025 10:20 AM EDT Type 2 diabetes mellitus without complication, with long-term current use of insulin (HCC) Primary hypertension Hypercholesterolemi a LIPID PANEL, STANDARD Routine 02/06/2025 10:20 AM EDT Primary hypertension Hypercholesterolemi a BASIC METABOLIC PANEL Routine 02/06/2025 10:20 AM EDT Primary hypertension Hypercholesterolemi a BITE REGISTRATION Routine 01/27/2025 2:0 0 PM [...] complication, with long-term current use of insulin ([facility]) RE-EVAL - POST-OP OFFICE VISIT Routine 12/24/2024 10:00 AM EDT LL REMOVAL OF TORUS MANDIBULARIS Routine 12/10/2024 8:45 AM EDT LR REMOVAL OF TORUS MANDIBULARIS Routine 12/10/2024 8:45 AM EDT ECG 12-LEAD Routine 12/03/2024 4:43 PM EDT Preop examination ALBUMIN, RANDOM URINE W/CREATININE Routine 11/17/2024 10:03 AM EDT Type 2 diabetes mellitus without complication, with long-term current use of insulin ([facility]) PANORAMIC RADIOGRAPHIC IMAGE Routine 07/09/2024 3:00 PM EDT Periodontal disease Dental caries from Last 3 Months or Most Recently Relevant to Health Maintenance Results * US Pelvis Transvaginal (03/05/2025 1:15 PM EST) Anatomical Region Laterality Modality Pelvis Ultrasound 03/05/2025 1:15 PM EST Narrative 03/05/2025 2:09 PM EST [address] [address] Ultrasound Report Signed Patient: Yuliet Underwood MR#: [id number] : 1945 Acct:[id number] Age/Sex: 79 / F ADM Date: 03/05/25 Loc: HO.US Attending Dr: Clint Damon MD Ordering Physician: Clint Damon MD Date of Service: 03/05/25 Procedure(s): US pelvic and transvaginal Accession Number(s): [id number] cc: Daiana Trevino MD; Clint Damon MD Reason for Exam: D25.9 - Leiomyoma of uterus, unspecified EXAMINATION: US PELVIS CLINICAL INFORMATION: Uterine fibroid. COMPARISON: August 08, 2024. Correlated to CT abdomen and pelvis dated September 29, 2024. TECHNIQUE: Ultrasound of the pelvis is performed using both transabdominal and transvaginal transducers along with Doppler. Transvaginal imaging is performed due to inadequate visualization transabdominally. FINDINGS: Uterus: The uterus is anteversion flexion and measures 9 x 4 x 5 cm. Volume: 95 cc. The double wall endometrial thickness is 14 mm. There is a 2.1 cm mixed iso to hyperechoic lesion in the body fundus junction of the endometrium. There is a 1.8 cm slightly exophytic mixed hypoechoic soft tissue lesion in the right lateral lower body cervix junction without gross calcifications or flow on color Doppler interrogation. Adnexa: The right ovary is not identified.. The left ovary is identified with flow on color Doppler interrogation. No gross solid or cystic lesion. No free fluid in the cul-de-sac. Left ovary measures 3 x 3 x 3 cm. Volume: 20 cc. US/US pelvic and transvaginal IMPRESSION: 14 mm thickened endometrial stripe, abnormal in a postmenopausal woman. 2.1 cm soft tissue lesion, endometrium. Consider submucosal fibroid versus malignancy. 1.8 cm subserosal uterine fibroid. Right ovary is not identified. Left ovary is normal. Electronically signed by: Dov De Guzman MD 03/05/2025 02:06 PM EST Dictated By: Dov Munoz MD Signed By: <Electronically signed by Dov Brown MD in OV> 03/05/25 1406 DD/ 1315 TD/TT: 03/05/25 1332 Logistical Engineer: Procedure Note Donotuseinterpreter, Image - 03/05/2025 [place] [address] Ultrasound Report Signed Patient: Everton Underwood#: [id number] : 1945cct:[id number] Age/Sex: 79 / FADM Date: 03/05/25 Loc: HO.US Attending Dr: Clint Damon MD Ordering Physician: Clint Damon MD Date of Service: 03/05/25 Procedure(s): US pelvic and transvaginal Accession Number(s): [id number] cc: Daiana Trevino MD; Clint Damon MD Reason for Exam: D25.9 - Leiomyoma of uterus, unspecified EXAMINATION: US PELVIS CLINICAL INFORMATION: Uterine fibroid. COMPARISON: August 08, 2024. Correlated to CT abdomen and pelvis dated September 29, 2024. TECHNIQUE: Ultrasound of the pelvis is performed using both transabdominal and transvaginal transducers along with Doppler. Transvaginal imaging is performed due to inadequate visualization transabdominally. FINDINGS: Uterus: The uterus is anteversion flexion and measures 9 x 4 x 5 cm. Volume: 95 cc. The double wall endometrial thickness is 14 mm. There is a 2.1 cm mixed iso to hyperechoic lesion in the body fundus junction of the endometrium. There is a 1.8 cm slightly exophytic mixed hypoechoic soft tissue lesion in the right lateral lower body cervix junction without gross calcifications or flow on color Doppler interrogation. Adnexa: The right ovary is not identified.. The left ovary is identified with flow on color Doppler interrogation. No gross solid or cystic lesion. No free fluid in the cul-de-sac. Left ovary measures 3 x 3 x 3 cm. Volume: 20 cc. US/US pelvic and transvaginal IMPRESSION: 14 mm thickened endometrial stripe, abnormal in a postmenopausal woman. 2.1 cm soft tissue lesion, endometrium. Consider submucosal fibroid versus malignancy. 1.8 cm subserosal uterine fibroid. Right ovary is not identified. Left ovary is normal. Electronically signed by: Dov De Guzman MD 03/05/2025 02:06 PM EST RP Dictated By: Dov Munoz MD Signed By: <Electronically signed by Dov Brown MDin OV> 03/05/25 1406 DD/ 1315 TD/TT: 03/05/25 1332 Logistical Engineer: Result [facility] External Provider IMG US PROCEDURES Final Result * POCT glucose manually resulted (02/19/2025 2:04 PM EDT) Only the most recent of2 resultswithin the time period is included. Glucose Blood, POC 126 60 - 200 mg/dL QC Media Lot # Comment:[id number] Lot# Expiration Date Comment:05/31/2025 Blood Capillary blood specimen / Unknown 02/19/2025 2:04 PM EDT Result [facility] POINT OF CARE TEST ENTER/ EDIT ORDERABLES Final Result * (ABNORMAL) POCT A1c (02/19/2025 2:03 PM EDT) Hemoglobin A1C 8.3(A) 4.0 - 5.7 % QC Media Lot # Comment:[id number] Lot# Expiration Date Comment:08/14/2026 Blood 02/19/2025 2:03 PM EDT Result [facility] POINT OF CARE TEST ENTER/ EDIT ORDERABLES Final Result * (ABNORMAL) Hemoglobin A1c (02/06/2025 10:20 AM EDT) Hemoglobin A1c 8.6(H) <6.0 % [facility] Comment:Hemoglobin A1C Refer ence Range Adults: 4.8 - 6.0 % Non diabetic: < 6.0 % Goal: < 7.0 %Additional Action Suggested: > 8.0 %Note: Hemoglobin A1c results are invalid for patients with abnormal amounts of HbF. Blood transfusions may impact the HbA1c concentration in the patient sample. Estimated Average Glucose 200 mg/dL [facility] Comment:eAG = Estimated ave rage glucose which is %A1C expressed asaverage glucose, using the formula of the [id number] Glucose study (ADAG), Diabetes Care, Vol.31,#8,Nov. 2007 Blood Venous blood specimen / Unknown 02/06/2025 10:20 AM EDT 02/06/2025 2:38 PM EDT Daiana Trevino MD LAB BLOOD ORDERABLES Final Resul t Performing Organization Address [facility] Co de Phone Number [facility] [address] [place] [phone] * Hepatic Function Panel (02/06/2025 10:20 AM EDT) Bilirubin, Total 0.2 0.0 - 1.0 mg/dL [facility] Bilirubin, Direct <0.2 0.0 - 0.5 mg/dL [facility] Aspartate Amino Transferase 29 5 - 31 U/L [facility] Alanine Aminotransferase 11 0 - 31 U/L [facility] Total Protein 7.1 6.5 - 8.0 g/dL [facility] Albumin Level 4.6 3.5 - 5.0 g/dL [facility] Alkaline Phosphatase 48 39 - 117 U/L [facility] Blood Venous blood specimen / Unknown 02/06/2025 10:20 AM EDT 02/06/2025 2:38 PM EDT Daiana Trevino MD LAB BLOOD ORDERABLES Final Resul t Performing Organization Address [facility] Co de Phone Number [facility] [address] [place] [phone] * (ABNORMAL) Lipid Panel, Standard (02/06/2025 10:20 AM EDT) Triglycerides 430(H) <150 mg/dL [facility] Comment:Slight Lipemia.Jenna able Triglyceride: less than 150 mg/dLBorderline High Triglyceride 150-199 mg/dLHigh Triglyceride: 200-499 mg/dLVery High Triglyceride: greater than or equal to 5OO mg/dL Cholesterol 152 <200 mg/dL [facility] Comment:Desirable Cholestero l: less than 200 mg/dLBorderline High Cholesterol: 200-239 mg/dLHigh Cholesterol: greater than 239 mg/dL LDL Cholesterol Calculated TNP <100 mg/dL [facility] Comment:Unable to calculate the LDL. The formula of Friedwald,Degroot, and Gemma is only valid if the triglycerides areless than 400 mg/dl. HDL Cholesterol 27(L) >40 mg/dL [facility] Comment:Desirable HDL: great er than 40 mg/dL Note: This HDL assay may give artificially low results in patients with liver disease. Blood Venous blood specimen / Unknown 02/06/2025 10:20 AM EDT 02/06/2025 2:38 PM EDT us Daiana Trevino MD LAB BLOOD ORDERABLES Final Resul t [facility] [address] [place] [phone] * (ABNORMAL) Basic Metabolic Panel (02/06/2025 10:20 AM EDT) Sodium 142 135 - 145 mmol/L [facility] Potassium 4.3 3.3 - 5.1 mmol/L [facility] Chloride 105 96 - 108 mmol/L [facility] Carbon Dioxide 24 22 - 29 mmol/L [facility] Anion Gap 17 12 - 20 [facility] Urea Nitrogen (BUN) 49(H) 9 - 16 mg/dL [facility] Creatinine, Serum 1.79(H) 0.5 - 1.4 mg/dL [facility] Estimated Glomerular Filt Rate 27 [facility] Comment:Chronic Kidney Disea se: Estimated GFR < 60 mL/min/1.58f0Ioavuv Kidney Disease: Estimated GFR < 15 mL/min/1.73m2 Glucose 152(H) 60 - 115 mg/dL [facility] Calcium 10.5(H) 8.4 - 10.2 mg/dL [facility] Blood Venous blood specimen / Unknown 02/06/2025 10:20 AM EDT 02/06/2025 2:38 PM EDT Daiana Trevino MD LAB BLOOD ORDERABLES Final Resul t Performing Organization Address [facility] Hospital/[facility] de Phone Number [facility] [address] [place] [phone] * ECG 12 lead (12/03/2024 4:43 PM EDT) Narrative Ann-Marie Sage MD - 12/03/2024 4:43 PM EDT HR 92 bpm, horizontal axis, intra atrial conduction delay Ann-Marie Sage MD ECG ORDERABLES Final Result * (ABNORMAL) Albumin, Random Urine W/Creatinine (11/17/2024 10:03 AM EDT) Creatinine, Urine 115.32 mg/dL [facility] Microalbumin Urine 99.0 mg/L [facility] Microalbum Creatinine Ratio Ur 85.8(H) <30 ug/mg cr [facility] Comment:Albumin/Creatinine R atio Reference Ranges: Normal: < 30 ug/mg creatinine Microalbuminuria: 30 - 300 ug/mg creatinineClinical Albuminuria: > 300 ug/mg creatinine 11/17/2024 10:0 3 AM EDT 11/17/2024 2:53 PM EDT Daiana Trevino MD LAB URINE ORDERABLES Final Resul t Performing Organization Address City/[facility] Co de Phone Number [facility] [address] [place] [address] [place] [phone] from Last 3 Months or Most Recently Relevant to Health Maintenance Insurance [facility] Care Teams Sack Sorter Relationship Specialty Start Date End Date Qamar Mittal CNP [address] [place] [address] [place] [address] PCP - General Family Medicine 02/04/25
--- OUTSIDE RECORDS SUMMARY | 2025-03-05 16:25 | XMS_ITS | Encounter Summary ---
Author Organization [facility] Address [address] [place] [address] 7 [place] [address] Care Team Providers Care Cisco Network Architect Name Role Phone Qamar Mittal CNP Primary Care Provider +1 -[phone] Encounter Details Date Type Department Care Team (Late st Contact Info) Description 08/18/2022 Orders Only [facility]S [address] [place] [address] Melanie Henson LPN Social History Tobacco Use [...] Description 03/09/2025 3:00 PM EST Office Visit [facility] ADULT DENTAL [address] [place] [address] Luis Miguel Delatorre, JEFERSON 505 [place] [address] 04/21/2025 3:15 PM EST Office Visit [facility] [address] [place] [address] Qamra Mittal CNP 505 [place] [address] documented as of this encounter Visit Diagnoses Not on filedocumented in this encounter Care Teams Cisco Network Architect Relationship Specialty Start Date End Date Qamar Mittal CNP 505 [place] [address] PCP - General Family Medicine 02/04/25 documented as of this encounter
--- OUTSIDE RECORDS SUMMARY | 2025-03-05 16:25 | XMS_ITS | Encounter Summary ---
Author Organization [email or web address] Address [address] [facility] [address] 7[address] [place] [address] Care Team Providers Care Dial Equipment Engineer Name Role Phone Qamar Mittal CNP Primary Care Provider +1 [phone] Encounter Details Date Type Department Care Team (Late st Contact Info) Description 03/05/2025 Orders Only [facility] External Provider, [facility] Social History Tobacco Use Types Packs/Day Years [...] 3:00 PM EST Office Visit [facility] ADULT DENTAL [address] [place], [place] [phone] Luis Miguel Delatorre, DMD 505 [place], [place] [phone] 04/21/2025 3:15 PM EST Office Visit [facility] MED & PEDS [address] [place], [place] [phone] Qamar Mittal, PROCESS TECH [address] [place], [place] [phone] documented as of this encounter Procedures Procedure Name Priority Date/Time Associated Diagnosis Comments US PELVIS TRANSVAGINAL Routine 03/05/2025 1:15 PM EST documented in this encounter Results * US Pelvis Transvaginal (03/05/2025 1:15 PM EST) Anatomical Region Laterality Modality Pelvis Ultrasound 03/05/2025 1:15 PM EST Narrative 03/05/2025 2:09 PM EST [address] [address] Ultrasound Report Signed Patient: Yuliet Underwood MR#: [id number] : 1945 Acct:[id number] Age/Sex: 79 / F ADM Date: 03/05/25 Loc: HO.US Attending Dr: Clint Damon MD Ordering Physician: Clint Damon MD Date of Service: 03/05/25 Procedure(s): US pelvic and transvaginal Accession Number(s): [id number] cc: Daiana Trevino MD; Clint Damon MD [...] Dov De Guzman MD 03/05/2025 02:06 PM [facility] Dictated By: Dov Munoz MD Signed By: <Electronically signed by Dov Brown MD in OV> 03/05/25 1406 DD/ 1315 TD/TT: 03/05/25 1332 [employer] Worker: Procedure Note Donotuseinterpreter, Image - 03/05/[address] [address] Ultrasound Report Signed Patient: Everton Underwood#: [id number] : 6Acct:[id number] Age/Sex: 79 / FADM Date: 03/05/25 Loc: HO.US Attending Dr: Clint Damon MD Ordering Physician: Clint Damon MD Date of Service: 03/05/25 Procedure(s): US pelvic and transvaginal Accession Number(s): [id number] cc: Daiana Trevino MD; Clint Damon MD [...] 03/05/25 1406 DD/ 1315 TD/TT: 03/05/25 1332 [employer] Worker: us [facility] External Provider IMG US PROCEDURES Final Result documented in this encounter Visit Diagnoses Not on filedocumented in this encounter Additional Health Concerns Assessment Noted Time PHQ-9 Depression Total Score: 0 12/30/19 11:36 AM EDT documented as of this encounter Care Teams Dial Equipment Engineer Relationship Specialty Start Date End Date Qamar Mittal CNP [address] [place] [address] PCP - General Family Medicine 02/04/25 documented as of this encounter
--- OUTSIDE RECORDS SUMMARY | 2025-03-05 16:25 | XMS_ITS | Encounter Summary ---
Author Organization [address] [facility] Address [address] [place] [address] 7 [place] [address] Care Team Providers Care Parlor Chaperone Name Role Phone Qamar Mittal CNP Primary Care Provider +1 [phone] Encounter Details Date Type Department Care Team (Latest Contact Info) Description 01/02/2020 Abstract [facility] CONVERSIONS Dental, Provider, DDS Social History Tobacco [...] 03/09/2025 3:00 PM EST Office Visit [facility] ADULT D[facility]AL [address] [place] [address] Luis Miguel Delatorre DMD 505 [place] [address] 04/21/2025 3:15 PM EST Office Visit [facility] MED & PEDS [address] [place] [address] Qamar Mittal CNP [address] [place] [address] documented as of this encounter Visit Diagnoses Not on filedocumented in this encounter Care Teams Parlor Chaperone Relationship Specialty Start Date End Date Qamar Mittal CNP [address] [place] [address] PCP - General Family Medicine 02/04/25 documented as of this encounter
--- OUTSIDE RECORDS SUMMARY | 2025-03-05 16:25 | XMS_ITS | Encounter Summary ---
Author Organization [employer] Address [address] [facility] 7t [place] [address] Care Team Providers Care Component Assembler Name Role Phone Qamar Mittal CNP Primary Care Provider +1 -[phone] Reason for Visit * Reason Onset Date Comments Referral 03/01/2023 Encounter Details Date Type Department Care Team ([facility] st Contact Info) Description 03/01/2023 Telephone [facility] MEDICINE [address] [place] [address] Daiana Trevino MD [address] [place] [address] Referral Social History Tobacco Use Types Packs/Day [...] EST Tc from pt requesting renew on [facility] referral, pt have an appt today at 3:00PM forher Cortizone shot but was advise by office referral is . documented in this encounter Plan of Treatment Upcoming Encounters Date Type Department Care Team (Late st Contact Info) Description 03/09/2025 3:00 PM EST Office Visit [facility] ADULT DENTAL [address] [place] [address] Luis Miguel Delatorre, DMD [address] [place] [address] 04/21/2025 3:15 PM EST Office Visit [facility] [address] [place] [address] Qamar Mittal CNP [address] [place] [address] documented as of this encounter Visit Diagnoses Not on filedocumented in this encounter Care Teams Component Assembler Relationship Specialty Start Date End Date Qamar Mittal CNP [address] [place] [address] PCP - General Family Medicine 02/04/25 documented as of this encounter
--- OUTSIDE RECORDS SUMMARY | 2025-03-05 16:25 | XMS_ITS | Encounter Summary ---
Author Organization [employer] Address [address] [facility] 7 [place] [address] Care Team Providers Care Dip Dyer Name Role Phone Kyrie Taygeorge DEE Primary Care Provider [phone] [phone] Reason for Visit * Reason Onset Date Comments Appointment Request 04/05/2023 Encounter Details Date Type Department Care Team (Late st Contact Info) Description 04/05/2023 Telephone [facility] MEDICINE [address] [place], [place] [phone] Daiana Trevino MD 505 [place] [address] Appointment Request Social History Tobacco Use Types [...] - 04/05/2023 2:46 PM EST Tc from [place] with [facility] insurance requesting a PE appt for program Please contact pt @ [phone] documented in this encounter Plan of Treatment Upcoming Encounters Date Type Department Care Team (Late st Contact Info) Description 03/09/2025 3:00 PM EST Office Visit [facility] ADULT DENTAL [address] [place], [place] [phone] Luis Miguel Delatorre, DMD [address] [place] [address] 04/21/2025 3:15 PM EST Office Visit [facility] MED & PEDS [address] [place] [address] Qamar Mittal CNP [address] [place] [address] documented as of this encounter Visit Diagnoses Not on filedocumented in this encounter Care Teams Dip Dyer Relationship Specialty Start Date End Date Qamar Mittal CNP [address] [place] [address] PCP - General Family Medicine 02/04/25 documented as of this encounter
--- OUTSIDE RECORDS SUMMARY | 2025-03-05 16:25 | XMS_ITS | Data Portability ---
Author Organization [place] [facility] Address [address] [place] [address] Assessment Encounter Date Assessment Date Assessment LastModified [...] of continued conservative management versus surgical management. [email or web address] Not available 12/04/2023 15:12:58 03/06/2024 03/06/2024 I [...] of continued conservative management versus surgical management. [email or web address] Not available 03/05/2024 14:36:30 06/16/2024 06/16/2024 I [...] of continued conservative management versus surgical management. [email or web address] Not available 06/16/2024 12:59:53 10/30/2024 10/30/2024 I [...] of continued conservative management versus surgical management. [email or web address] Not available 10/29/2024 14:59:45 02/16/2025 02/16/2025 I am seeing the patient [...] conservative management versus surgical management. Not available 02/15/2025 19:44:57 Plan of Treatment Reminders Order Date Submit Date Provider Last Modified By Organization Details Last Modified Time Details Appointments RECHECK 15 2025 03:00P M Chi Fierro PA-C Not available Not available Not available Lab None recorded. Referral None recorded. Procedures None recorded. Surgeries None recorded. Imaging XR, knee, 4 or more view - bilateral knee xrays. rm 211 2024 025 [email or web address] [facility] Office, [address], [address], [place], [address], 02/25/2025 12:37:32 Medication Orders None recorded. Patient TargetsNo targets recorded. Patient InstructionsNo instructions recorded. Reason for Referral None Reported. Results Created Date Observation Date Name Description Value Unit Range Abnormal Flag Note LastModifiedBy Organization Detail LastModifiedTime 02/17/2002/16/2025 XR, knee, 4 or more view http:/ [email or web address] ?Encry pted=s hAaTro YD8dLq bEUv6g %2BXZw aYqtaq 0bqfl% 2Fg9IQ a4ajBk vP9nXo QUaueC m3YtLR FvZlgJ JJ8mAn HZtai3 5f4236 AC0KlY nmGU6a iKiQtr MwF INTERFACE [facility] [address], [place], [address], 02/16/2025 09:50:23 02/17/2002/16/2025 XR, knee, 4 or more view http:/ [email or web address] ?Encry pted=s hAaTro YD8dLq bEUv6g %2BXZw aYqtaq 0bqfl% 2Fg9IQ a4ajBk vP9nXo QUaueC m3YtLR FvZlgJ JJ8mAn HZtai3 3f8998 AC0KlY nmGU6a iKiQtr MwF INTERFACE [facility] [address], [place], [address], 02/16/2025 09:50:25 Result Notes Documentation Provider Name and Address Organization Details Recorded Time Xr, Knee, 4 Or More View : [email or web address]? Encrypted=keJgHnpFA4cQtuP Uv6g%2NWRqcIuoka1yuxp%2Fg 5HTr6iiZifT5eZlEIswtTu5Pb RSJoTaoYCW9wRlHCowp33y838 2EX6AbPbxSZ1bdSaLscMzF Not Available [facility] 02/16/2025 09:50: 24 Xr, Knee, 4 Or More View : [email or web address] Encrypted=fkKpPgeYW8jVlhW Uv6g%2GVYtqRtthu1ybwu%2Fg 1FCt5ypFhxR2eYdKGpczUu0Cl XMXuIdkFRB2jNuQRmpo62p536 6UR4KySqbLE6jhGdXwfZkL Not Available [facility] 02/16/2025 09:50: 25 Problems Name Problem SNOMED Code Status Onset Date Resolution Date Notes Provider Name and Address Organization Details Recorded Time Pain of bilateral knee regions 55555784235620 2 Active 2024 ELFEGO Arellano'HEURVY benson, [facility] 09:39:45 Problem Notes None recorded. Procedures Surgical History Date Name Laterality Status Provider Name and Address Organization Details Recorded Time 02/16/2025 JZNICHOLASEE INJ Frankie completed Chi Fierro PA-C [address], [place], [address], [facility] 02/15/2025 19:44:52 10/30/2024 JZKNEE INJ Frankie completed Chi Fierro PA-C [address], [place], [address], [facility] 10/29/2024 14:59:39 06/16/2024 JZKNEE INJ Frankie completed Chi Fierro PA-C [address], [place], [address], [facility] 06/16/2024 08:05:41 06/09/2024 JZKNEE INJ Frankie cancelled Chi Fierro PA-C [address], [place], [address], [facility] 06/09/2024 12:48:39 03/06/2024 JZKNEE INJ Frankie completed Chi Fierro PA-C [address], [place], [address], [facility] 03/05/2024 14:36:22 12/04/2023 JZKNEE INJ Frankie completed Chi Fierro PA-C [address], [place], [address], [facility] 12/04/2023 08:17:20 09/06/2023 Sports Knee 4&1 completed Chi Feirro PA-C [address], [place], [address], [facility] 09/06/2023 12:35:54 Imaging Results [...] Updated DateTime 06/16/2024 154.94 cm 37 kg/m2 41854.1 g KAYLIA L'HEUREUX [place] [facility] 06/16/2024 12:53:55 Date Recorded Body height Body mass index (BMI) Body weight Provider Name and Address Organization Details Last Updated DateTime 10/30/2024 154.94 cm 37 kg/m2 51265.1 evan Patel [facility] 10/30/2024 10:38:25 Date Recorded Body height Body mass index (BMI) Body weight Provider Name and Address Organization Details Last Updated DateTime 12/04/2023 154.94 cm 37 kg/m2 56827.1 evan KAYLIA L'HEUREUX [facility] 12/04/2023 15:03:01 Date Recorded Body height Body mass index (BMI) Body weight Provider Name and Address Organization Details Last Updated DateTime 02/16/2025 154.94 cm 37 kg/m2 26477.1 g KAYLIA L'HEUREUX [facility] 02/16/2025 09:37:43 Date Recorded Body height Body mass index (BMI) Body weight Provider Name and Address Organization Details Last Updated DateTime 03/06/2024 154.94 cm 37 kg/m2 40282.1 g KAYLIA L'HEUREUX [facility] 03/06/2024 15:47:23 Social History Question Answer Notes LastModified by Organizat ion Details LastModified Time Tobacco Smoking Status Never Smoker EVANYLIA L'HEUREUX [facility] 07/11/2023 15:03:03 What Is Your Relationship Status? [...] Response Allergies/Hayfever Y Coronary Artery Disease N Breathing or lung disorders N Anxiety/Depression Y Emphysema N Nerve Disorders N Thyroid Problems N COPD N Pacemaker N Kidney/Bladder Problems N Anemia N Vascular Disease N Heart Attack (SC) N Gastrointestinal Disease N Cholesterol Y Diabetes Y Autoimmune disease N Bleeding Disorder N Orthotics N Seizures/Epilepsy N Arthritis Y Blood Clot N AIDS/HIV N Congestive Heart Failure (CHF) N Acid Reflux (GERD) N Cancer N Stroke N Asthma N Circulation Problems N Peripheral Vascular Disease N Sleep Apnea Y Hepatitis N Heart Disease N Rheumatoid Arthritis N Pulmonary Embolism N Arrhythmia N Headaches N Fibromyalgia N Hypertension Y Osteoporosis N Gynecological HistoryNo gynecological history recorded. Obstetrics History GPAL:G 0 P 0 0 0 0 Past Encounters Encounter ID Performer Location Encounter Start Date Encounter Closed Date Diagnosis/Indication Diagnosis SNOMED-CT Code Diagnosis ICD10 Code Diagnosis IMO Codes Diagnosis Note [id number] Chi Fierro PA-C [facility] [address] [place] [address] 07/11/2023 14:38:06 07/12/2023 07:58:16 Bilateral osteoarthritis of knees 6189527861 91996 M17.0 [id number] Chi Fierro PA-C [facility] [address] [place] [address] 09/06/2023 15:40:30 09/27/2023 15:02:46 Bilateral osteoarthritis of knees 7866570698 83175 M17.0 [id number] Chi Fierro PA-C [facility] [address] [place] [address] 12/04/2023 14:49:34 12/28/2023 12:23:49 Bilateral osteoarthritis of knees 5378570752 90665 M17.0 [id number] Chi Fierro PA-C [facility] [address] [place] [address] 03/06/2024 15:41:03 04/07/2024 12:00:28 Primary gonarthrosis, bilateral 592183038 M17.0 [id number] Chi Fierro PA-C [facility] [address] [place] [address] 06/16/2024 12:48:05 06/30/2024 18:45:02 Primary gonarthrosis, bilateral 321495787 M17.0 [id number] Chi Fierro PA-C [facility] [address] [place] [address] 10/30/2024 10:32:46 11/10/2024 11:44:55 Primary gonarthrosis, bilateral 055048157 M17.0 [id number] Chi Fierro PA-C [facility] [address] [place] [address] 02/16/2025 09:20:34 02/25/2025 12:37:32 Primary gonarthrosis, bilateral 037043862 M17.0 [id number] Pain of bi lateral knee regions 9185312437 14657 M25.561 M25.562 [id number] Health Concerns Section Related Observation LastModified by Organization Detai ls LastModified Time None Recorded Concern Status LastModified by Organization Details LastModified Time None Recorded Advance Directives Directive None Recorded Payers Insurance Date Sequence Insurance Name Policy Number Policy Collado Covered Member ID Collado Member ID Guarantor Name 02/25/2025 1 [facility] (MEDICARE REPLACEMENT/A DVANTAGE - HMO) Yuliet Underwood [id number] Yuliet Underwood OBGyn Episode No OBEpisode recorded.
--- OUTSIDE RECORDS SUMMARY | 2025-03-05 16:26 | XMS_ITS | Encounter Summary ---
Author Organization [email or web address] Address [address] 7t [place] [address] Care Team Providers Care Chief Creative Officer Name Role Phone Qamar Mittal CNP Primary Care Provider +1 -[phone] Encounter Details Date Type Department Care Team ([facility] Contact Info) Description 03/07/2024 Orders Only [facility] CHC MED & PEDS [address] [place] [address] Daiana Trevino MD [address] [place] [address] Social History Tobacco Use Types Packs/Day Years [...] Description 03/09/2025 3:00 PM EST Office Visit [facility] ADULT DENTAL [address] [place] [address] Luis Miguel Delatorre DMD [address] [place] [address] 04/21/2025 3:15 PM EST Office Visit [facility] MED & PEDS [address] [place] [address] Qamar Mittal CNP [address] [place] [address] documented as of this encounter Visit Diagnoses Not on filedocumented in this encounter Additional Health Concerns Assessment Noted Time PHQ-9 Depression Total Score: 5 06/20/19 24 9:37 AM EST documented as of this encounter Care Teams Chief Creative Officer Relationship Specialty Start Date End Date Qamar Mittal CNP [address] [place] [address] PCP - General Family Medicine 02/04/25 documented as of this encounter
--- OUTSIDE RECORDS SUMMARY | 2025-03-05 16:26 | XMS_ITS | Encounter Summary ---
Author Organization [employer] Address [address] [facility] 7t [place] [address] Care Team Providers Care [employer] Dean Name Role Phone Qamar Mittal CNP Primary Care Provider +1 -[phone] Reason for Visit * Reason Comments Med Refill Encounter Details Date Type Department Care Team ([facility] Contact Info) Description 03/12/2024 Refill [facility] CHC MED & PEDS [address] [place], [place] [phone] Daiana Trevino MD [address] [place] [address] Type 2 diabetes mellitus without complication, without long-term current use of insulin ([facility]) Social History Tobacco Use Types Packs/Day Years [...] 3:00 PM EST Office Visit [facility] ADULT DENTAL [address] [place] [address] Luis Miguel Delatorre DMD [address] [place] [address] 04/21/2025 3:15 PM EST Office Visit [facility] MED & PEDS [address] [place] [address] Qamar Mittal CNP [address] [place] [address] documented as of this encounter Visit Diagnoses Diagnosis Type 2 diabetes mellitus without complication, without long-term current use of insulin (HCC) documented in this encounter Additional Health Concerns Assessment Noted Time PHQ-9 Depression Total Score: 5 06/20/19 9:37 AM EST documented as of this encounter Care Teams [employer] Dean Relationship Specialty Start Date End Date Qamar Mittal CNP [address] [place] [address] PCP - General Family Medicine 02/04/25 documented as of this encounter
--- OUTSIDE RECORDS SUMMARY | 2025-03-05 16:26 | XMS_ITS | Encounter Summary ---
Author Organization [employer] Address [address] [place] [address] Care Team Providers Care Department Of Sociology Chair Name Role Phone Qamar Mittal CNP Primary Care Provider +1 -[phone] Reason for Visit * Reason Comments Med Refill Encounter Details Date Type Department Care Team ([facility] Contact Info) Description 03/12/2024 Refill [facility] CHC MED & PEDS [address] [place], [place] [phone] Daiana Trevino MD [address] [place] [address] Social History Tobacco Use Types Packs/Day Years [...] Description 03/09/2025 3:00 PM EST Office Visit [facility] ADULT DENTAL [address] [place] [address] Luis Miguel Delatorre DMD [address] [place] [address] 04/21/2025 3:15 PM EST Office Visit [facility] MED & PEDS [address] [place] [address] Qamar Mittal CNP [address] [place] [address] documented as of this encounter Visit Diagnoses Not on filedocumented in this encounter Additional Health Concerns Assessment Noted Time PHQ-9 Depression Total Score: 5 06/20/19 24 9:37 AM EST documented as of this encounter Care Teams Department Of Sociology Chair Relationship Specialty Start Date End Date Qamar Mittal CNP [address] [place] [address] PCP - General Family Medicine 02/04/25 documented as of this encounter
--- OUTSIDE RECORDS SUMMARY | 2025-03-05 16:26 | XMS_ITS | Encounter Summary ---
Author Organization [employer] Address [address] [place] [address] Care Team Providers Care Fur Dyer Name Role Phone Qamar Mittal CNP Primary Care Provider [phone] Reason for Visit * Reason Onset Date Comments Med Refill 03/12/2024 Encounter Details Date Type Department Care Team ([facility] Contact Info) Description 03/12/2024 Telephone [facility] [address] [place], [place] [phone] Daiana Trevino MD [address] [place] [address] Med Refill Social History Tobacco Use Types [...] 100 UNIT/ML pen To be sent to: [facility] - [address] documented in this encounter Plan of Treatment Upcoming Encounters Date Type Department Care Team ([facility] st Contact Info) Description 03/09/2025 3:00 PM EST Office Visit [facility] ADULT DENTAL [address] [place] [address] Luis Miguel Delatrore DMD [address] [place] [address] 04/21/2025 3:15 PM EST Office Visit [facility] MED & PEDS [address] [place] [address] Qamar Mittal, LEILA [address] [place] [address] documented as of this encounter Visit Diagnoses Not on filedocumented in this encounter Additional Health Concerns Assessment Noted Time PHQ-9 Depression Total Score: 5 06/20/19 24 9:37 AM EST documented as of this encounter Care Teams Fur Dyer Relationship Specialty Start Date End Date Qamar Mittal CNP [address] [place] [address] PCP - General Family Medicine 02/04/25 documented as of this encounter
== END 2025-03-05 13:08 | disposition home or self-care (01) ==
LOC: HO.US 13:07
PROVIDERS: PCP Student in an Organized Health Care Education/Training Program; Visit Provider Obstetrics & Gynecology
DX: D25.9 Leiomyoma of uterus, unspecified (principal)
CPT/HCPCS: 76830; 76856

== ENCOUNTER → 2025-03-05 13:10 | Outpatient (BNV) | payer OTHER, SELFPAY | PROVIDERS: PCP Student in an Organized Health Care Education/Training Program; Visit Provider Radiology Diagnostic Radiology | DX: D25.2 Subserosal leiomyoma of uterus (principal) | CPT/HCPCS: 76830; 76856 ==

== ENCOUNTER 2025-03-10 14:23 | Inpatient (IN) | payer OTHER, SELFPAY ==
--- NOTE | 2025-03-10 | ECG_ITS ---
Test Reason : lightheadness Blood Pressure : */* mmHG Vent. Rate : 99 BPM Atrial Rate : 99 BPM P-R Int : 176 ms QRS Dur : 84 ms QT Int : 336 ms P-R-T Axes : 47 -15 102 degrees QTcB Int : 431 ms Normal sinus rhythm Cannot rule out Anterior infarct , age undetermined T wave abnormality, consider lateral ischemia Abnormal ECG No previous ECGs available Referred By: Generic ED Physician Electronically Signed By: RIOS ANNE
--- NOTE | ~2025-03-10 | XR_ITS ---
EXAMINATION: XR CHEST CLINICAL INFORMATION: chest pain COMPARISON: X-ray 06/27/2022 TECHNIQUE: Frontal view of the chest was obtained. FINDINGS: The cardiomediastinal silhouette is within normal limits. Stable mild right hemidiaphragm elevation. There is no focal consolidation, edema, or effusion. No pneumothorax. No acute osseous abnormality. XR/XR chest 1V IMPRESSION: No evidence of acute pulmonary process. Electronically signed by: Darek Bryant MD 03/10/2025 03:12 PM [facility]
--- NOTE | ~2025-03-10 | CT_ITS ---
EXAMINATION: CT ABDOMEN AND PELVIS WITHOUT CONTRAST CLINICAL INFORMATION: Abdominal pain. 79-year-old female. No further clinical information provided. COMPARISON: 09/29/2024, 08/10/2024. TECHNIQUE: Multidetector volumetric imaging was performed from the superior aspect of the liver through the pubic symphysis. Sagittal and coronal reformatted images were obtained on the technologist's workstation. This CT examination was performed using dose optimization techniques as appropriate, variously including the following: *Automated exposure control *Adjustment of mA and/or kV according to patient size (this includes techniques or standardized protocols for targeted exams where dose is matched to indication/reason for exam; i.e. extremities or head) *Use of iterative reconstruction technique FINDINGS: LUNG BASES: Lung bases demonstrate mild dependent atelectasis but are otherwise clear. There are no effusions. The heart size is borderline enlarged. There are mitral annular calcifications and mild coronary calcifications. No pericardial effusion. The distal esophagus is mildly patulous. The GE junction is normal. LIVER, GALLBLADDER, AND BILIARY TREE: The unenhanced liver is normal in size, shape, and attenuation. No focal hepatic lesion or biliary ductal dilatation is present. The gallbladder is unremarkable with no evidence of radiopaque gallstones, gallbladder wall thickening, or obvious pericholecystic inflammatory changes. PANCREAS: Unremarkable. SPLEEN: Unremarkable. ADRENAL GLANDS: Unremarkable. KIDNEYS AND URETERS: The kidneys are normal in size, shape, and attenuation. 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 No hydronephrosis, hydroureter, or calculi seen. No perinephric stranding. There is a simple 1.2 cm cyst in the midpole right kidney. BLADDER: Unremarkable. GASTROINTESTINAL TRACT: There is colonic diverticulosis, involving the transverse, descending, and sigmoid colon. No rectal abnormality. Small bowel is normal in caliber and course. Stomach is somewhat decompressed. The duodenum appears normal. A normal appendix is visualized. ABDOMINAL WALL: No significant hernia is identified. There is evidence of pelvic floor weakness. LYMPH NODES: No evidence of pathologic lymphadenopathy. VASCULAR: Moderate calcification of the aorta and iliac vessels without aneurysm.. PELVIC VISCERA: Uterus demonstrates a probable dorsal uterine fibroid. Otherwise unremarkable noncontrast appearance. Adnexa are unremarkable. OSSEOUS STRUCTURES: No suspicious lytic or blastic bone lesions. There are degenerative changes throughout the spine. There are moderate degenerative changes in the left greater than right SI joints. There are mild degenerative changes in the bilateral hip joints. CT/CT abdomen pelvis wo IV con IMPRESSION: 1. No acute finding in the abdomen or pelvis. 2. There is colonic diverticulosis without evidence of acute diverticulitis. 3. There is a probable dorsal uterine fibroid present. 4. There are additional ancillary findings as discussed in the body of the report. Electronically signed by: Hunter Lazo MD 03/10/2025 04:44 PM [facility]
[2025-03-10 14:25] VITALS: BP 164/92; PULSE 107; O2SAT 97
[2025-03-10 14:37] VITALS: BP 109/71; PULSE 102; RESP 16; TEMP 36.6; O2SAT 98; BMI 38.2
--- NOTE | 2025-03-10 15:14 | ED_ITS ---
HPI - General Adult General Chief complaint: Abdominal Pain Stated complaint: LIGHTHEADED Time Seen by Provider: 03/10/25 15:12 Source: patient and EMS Mode of arrival: EMS Limitations: no limitations History of Present Illness ED Provider: Juana Dougherty PA-C HPI narrative: Patient is a 79 year old assigned female at with a history of VIRI, DM, and diverticulosis presenting to the emergency department today with abdominal pain. Patient states that for the last week she has had intermittent epigastric pain that is worse with eating. Patient states that it has gotten to the point where she is not eating because she is concerned for the pain. Patient states that she has not been taking any of her insulin. Patient denies any other complaints at this time. Related Data Home Medications ?Medication ?Instructions ?Recorded ?Confirmed cholecalciferol (vitamin D3) 50 50 mcg PO BEDTIME 08/2103/10/25 mcg (2,000 unit) tablet gemfibrozil 600 mg tablet 600 mg PO BID 09/06/2103/10 glipizide 10 mg tablet 20 mg PO BID 09/06/21 insulin glargine 100 unit/mL (3 35 unit subcut BEDTIME 09/06/21 01/30/23 mL) subcutaneous pen (Lantus Solostar U-100 Insulin) lisinopril 10 mg tablet 10 mg PO BEDTIME 09/06/21 loratadine 10 mg tablet 10 mg PO BEDTIME 09/06/21 metformin 1,000 mg tablet 1,000 mg PO BID 09/06/21 omega-3 acid ethyl esters 1 gram 1 cap PO DAILY 03/10/25 capsule sertraline 25 mg tablet 25 mg PO DAILY 09/06/2102/21 triamterene 37.5 1 cap PO DAILY 09/06/2102/21 mg-hydrochlorothiazide 25 mg capsule aspirin 81 mg chewable tablet 81 mg PO BEDTIME 3 03/10/25 dapagliflozin propanediol 10 mg 10 mg PO DAILY 5 03/10/25 tablet (Farxiga) furosemide 20 mg tablet 20 mg PO DAILY 03/10/2502/21 rosuvastatin 20 mg tablet 20 mg PO BEDTIME 03/10/25 tirzepatide 2.5 mg/0.5 mL 2.5 mg subcut Q7D 03/10/25 1 05/10/24 subcutaneous pen injector (Jennifer) Previous Rx's ?Medication ?Instructions ?Recorded docusate sodium 100 mg capsule 100 mg PO BEDTIME #30 c aps 02/17/25 Allergies Allergy/AdvReac Type Severity Reaction Status Date / Time [id number] Reductase Allergy Severe SEVERE Verified 03/10/25 14:40 Inhibitor ([id number] DIARRHEA REDUCTASE INHIBITOR) Review of Systems 2 Constitutional: Constitutional: Reports as per HPI Eyes: Eyes: Reports as per HPI ENT: Reports as per HPI Cardiovascular: Cardiovascular: Reports as per HPI Respiratory: Respiratory: Reports as per HPI Gastrointestinal: Gastrointestinal: Reports as per HPI Genitourinary: Genitourinary: Reports as per HPI Musculoskeletal: Musculoskeletal: Reports as per HPI Integumentary/Breasts: Skin/Breast: Reports as per HPI Neurologic: Reports as per HPI Psychiatric: Psychiatric: Reports as per HPI Endocrine: Endocrine: Reports as per HPI Hematologic/Lymphatic: Hematologic/Lymphatic: Reports as per HPI Allergic/Immunologic: Allergic/Immunologic: Reports as per HPI [facility] Past Medical History Attestation statement: The following information was validated with the patient. Source: old records reviewed and nursing notes reviewed Medical History Diverticulosis Diabetes Elevated cholesterol HTN (hypertension) Restrictive lung disease Somnolence, daytime Snoring VIRI (obstructive sleep apnea) Dyspnea on exertion Obesity (BMI 35.0-39.9 without comorbidity) Surgical History Hx of cataract extraction H/O colonoscopy History of dilatation and curettage H/O: knee surgery Family History Family History Mother Colon cancer Diabetes Heart disease Brother Colon cancer Father Angina at rest Social History Social History Household Members: None Housing: Apartment Alcohol intake: never Patient Tobacco Use Status: Never used Tobacco Smoked in Last 30 Days: No Use of substances other than those prescribed or required for medical reasons: No Advance Directives: No Advance Directives Information Provided: No Do you have a plan to hurt others: No Plan Physical Exam ED Vital Signs: Vital Signs - 24 hr 03/10/25 14:37 03/10/25 16:57 03/10/25 18:00 Temperature 97.9 F Pulse Rate 102 H 70 Respiratory Rate 16 20 Blood Pressure 109/71 118/70 138/80 Pulse Oximetry 98 95 Oxygen Delivery Method Room Air Room Air BMI result Body Mass Index 38.2 Const General: cooperative, no acute distress, alert and awake Nutritional Appearance: well nourished Orientation/consciousness: patient oriented x3 HENMT Head: Yes normal to inspection and Yes atraumatic Ears: hearing grossly normal bilaterally and external ears normal General nose exam: Normal external nose present, no nasal discharge noted and no epistaxis Face and sinus: Yes normal facial exam, No abrasion and No laceration Mouth: Normal oral and palatal mucosa present, no drooling and no muffled voice Eyes General: appearance normal, both eyes and all related structures Periorbital: periorbital findings normal Eyelids: Yes eyelids normal Conjunctivae: conjunctivae normal Pupils: Equal, round and reactive pupils present EOM: EOMs intact bilaterally Neck Neck: Yes normal visual inspection and Yes full ROM Resp Effort & Inspection: normal respiratory effort and able to speak in complete sentences Neuro General: patient oriented x3, moves all extremities and CN's II-XI intact bilaterally Cranial nerves: Yes Equal, round and reactive pupils present Cognition (Neuro): normal cognition Extrem General: Yes normal to inspection, Yes full ROM and Yes capillary refill normal Psych Appearance: grossly normal Mental Status: mental status grossly normal Affect: normal affect Attitude: cooperative Thought process: Normal thought process present Thought content: Normal thought content present Insight: Good insight present (Psych) Medications Administered Generic Name Dose Route Start Last Admin Trade Name Freq PRN Reason Stop Dose Admin Dextrose/Lactated Ringer's 1,000 mls @ 200 mls/hr 03/10/25 16:00 03/10/25 16:35 D5lr IVCONT 100 mls/hr .Q5H TEVIN Administration Discontinued Medications Generic Name Dose Route Start Last Admin Trade Name Freq PRN Reason Stop Dose Admin Al Hydroxide/Mg Hydroxide 15 ml 03/10/25 15:21 03/10/25 16:33 Magnesium Hydrox/Alum Hydrox 30 Ml Oral.Susp PO 03/10/25 15:22 15 ml ONCE ONE Administration Dextrose 25 gm 03/10/25 15:39 03/10/25 15:45 Dextrose 50 % 25 Gm/50 Ml Syringe IVPUSH 03/10/25 15:40 25 gm ONCE ONE Administration Pantoprazole Sodium 40 mg 03/10/25 15:21 03/10/25 15:47 Pantoprazole Sodium 40 Mg/10 Ml Vial IVPUSH 03/10/25 15:22 40 mg ONCE ONE Administration Medical Decision Making Medical Decision Making MDM Narrative: Patient is a 79 year old assigned female at with a history of VIRI, DM, and diverticulosis presenting to the emergency department today with abdominal pain. Patient's physical exam was as noted in the physical exam portion of this note. Patient's blood work showed a potassium of 5.3, anion gap of 21, BUN 88, CR of 2.54, and glucose of 31. Patient's urine showed no acute process. Patient's EKG was unremarkable. Patient's chest x-ray showed no acute process. Patient's CT abdomen / pelvis showed no acute process. I was informed by nursing the patient was given 15g of oral glucose prior to arrival. Patient was given am amp of dextrose and remained hypoglycemic. Patient was started on a D5 + LR drip given her continued hypoglycemia and her GALEN (elevated BUN + CR). Patient was given IV protonix and PO Maalox which she stated helped the burning feeling in her epigastric some. Patient's clinical presentation is most consistent with hypoglycemia secondary to poor nutritional intake, GALEN due to poor hydration, and hyperkalemia. I spoke with the hospitalist team who agreed to admission. I explained my physical exam findings as well as all test results to the patient. I answered all questions asked by the patient. Patient verbalized agreement and understanding with this treatment plan and admission. Differential Diagnosis Differential Diagnoses: The differential diagnosis associated with the presentation includes Gastric ulcer GALEN Hypoglycemia Poor oral intake Admission/Observation Consideration of admission/observation: Escalation of care including admission/observation considered Patient admitted as noted in the MDM Rationale portion of this note. Consult Healthcare Provider Management of the patient was discussed with: Hospitalist (agreed to admission as noted in the MDM Rationale portion of this note.) Lab Data [facility] Lab Attestation statement: I reviewed the patient's lab results. My interpretation of these results are in the MDM Rationale portion of this note. 03/10/25 15:07 03/10/25 15:07 Labs: Lab Results 03/10/25 03/10/25 03/10/25 Range/Units 15:07 15:38 16:26 WBC 10.8 (4.8-10.8) X10*3/uL RBC 4.39 (4.20-5.50) X10*6/uL Hgb 13.5 (12.0-16.0) g/dl Hct 41.2 (37.0-47.0) % MCV 93.8 (80.0-98.0) fL MCH 30.8 (27.0-33.0) pg MCHC 32.8 (31.0-35.0) g/dl RDW 13.2 (11.0-16.0) % Plt Count 442 H (160-400) X10*3/uL MPV 10.4 (9.4-12.3) fL Immature Gran % (Auto) 1.6 H (0.0-0.4) % Neut % (Auto) 72.4 (45-73) % Lymph % (Auto) 19.0 L (20-40) % [place] % (Auto) 6.0 (2-11) % Eos % (Auto) 0.4 (0-4) % Baso % (Auto) 0.6 (0-2) % Lymph # (Auto) 2.1 (1.2-4.9) X10*3/uL [place] # (Auto) 0.7 (0.1-1.2) X10*3/uL Eos # (Auto) 0.0 (0.0-0.4) X10*3/uL Baso # (Auto) 0.1 (0.0-0.2) X10*3/uL Abs Immat Gran (auto) 0.17 H (0.00-0.03) X10*3/uL Absolute Neuts (auto) 7.8 (2.0-8.3) x10*3/uL Absolute Nucleated RBC 0.000 (0.0-0.012) X10*3/uL Nucleated RBC % (auto) 0.0 (0.0-0.2) /100WBC PT 13.1 (11.2-13.5) SEC INR 1.1 (0.9-1.1) Sodium 134 L (135-145) mmol/L Potassium 5.3 H D (3.3-5.1) mmol/L Chloride 95 L (96-108) mmol/L Carbon Dioxide 23 (22-29) mmol/L Anion Gap 21 H (12-20) BUN 88 H (9-16) mg/dL Creatinine 2.54 H (0.5-1.4) mg/dL Estim Creat Clear Calc 18.4 Estimated GFR 18 POC Glucose 40 L* 127 H (60-115) mg/dL Random Glucose 31 L* (60-115) mg/dL Calcium 11.5 H D (8.4-10.2) mg/dL Total Bilirubin 0.2 (0.0-1.0) mg/dL AST 20 (5-31) U/L ALT 11 (0-31) U/L Alkaline Phosphatase 47 (39-117) U/L Troponin I High Sens 11.8 (<3.5-17.0) ng/L Total Protein 8.1 H (6.5-8.0) g/dL Albumin 5.0 (3.5-5.0) g/dL Independent Interpretation I performed an independent interpretation of an: EKG, Plain X-Ray and CT Scan Interpretation: My interpretation is in agreement with the radiologist's impression of these imaging studies. L Report Number: [id number]: Total DLP = 733.00 mGy-cm Reason for Exam: abd pain EXAMINATION: CT ABDOMEN AND PELVIS WITHOUT CONTRAST CLINICAL INFORMATION: Abdominal pain. 79-year-old female. No further clinical information provided. COMPARISON: 09/29/2024, 08/10/2024. TECHNIQUE: Multidetector volumetric imaging was performed from the superior aspect of the liver through the pubic symphysis. Sagittal and coronal reformatted images were obtained on the technologist's workstation. This CT examination was performed using dose optimization techniques as appropriate, variously including the following: *Automated exposure control *Adjustment of mA and/or kV according to patient size (this includes techniques or standardized protocols for targeted exams where dose is matched to indication/reason for exam; i.e. extremities or head) *Use of iterative reconstruction technique FINDINGS: LUNG BASES: Lung bases demonstrate mild dependent atelectasis but are otherwise clear. There are no effusions. The heart size is borderline enlarged. There are mitral annular calcifications and mild coronary calcifications. No pericardial effusion. The distal esophagus is mildly patulous. The GE junction is normal. LIVER, GALLBLADDER, AND BILIARY TREE: The unenhanced liver is normal in size, shape, and attenuation. No focal hepatic lesion or biliary ductal dilatation is present. The gallbladder is unremarkable with no evidence of radiopaque gallstones, gallbladder wall thickening, or obvious pericholecystic inflammatory changes. PANCREAS: Unremarkable. SPLEEN: Unremarkable. ADRENAL GLANDS: Unremarkable. KIDNEYS AND URETERS: The kidneys are normal in size, shape, and attenuation. 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 No hydronephrosis, hydroureter, or calculi seen. No perinephric stranding. There is a simple 1.2 cm cyst in the midpole right kidney. BLADDER: Unremarkable. GASTROINTESTINAL TRACT: There is colonic diverticulosis, involving the transverse, descending, and sigmoid colon. No rectal abnormality. Small bowel is normal in caliber and course. Stomach is somewhat decompressed. The duodenum appears normal. A normal appendix is visualized. ABDOMINAL WALL: No significant hernia is identified. There is evidence of pelvic floor weakness. LYMPH NODES: No evidence of pathologic lymphadenopathy. VASCULAR: Moderate calcification of the aorta and iliac vessels without aneurysm.. PELVIC VISCERA: Uterus demonstrates a probable dorsal uterine fibroid. Otherwise unremarkable noncontrast appearance. Adnexa are unremarkable. OSSEOUS STRUCTURES: No suspicious lytic or blastic bone lesions. There are degenerative changes throughout the spine. There are moderate degenerative changes in the left greater than right SI joints. There are mild degenerative changes in the bilateral hip joints. CT/CT abdomen pelvis wo IV con IMPRESSION: 1. No acute finding in the abdomen or pelvis. 2. There is colonic diverticulosis without evidence of acute diverticulitis. 3. There is a probable dorsal uterine fibroid present. 4. There are additional ancillary findings as discussed in the body of the report. Electronically signed by: Hunter Lazo MD 03/10/2025 04:44 PM [facility] Dictated By: Hunter Lazo MD Signed By: Electronically signed by Hunter Lazo MD 03/10/25 1644 Reason for Exam: chest pain EXAMINATION: XR CHEST CLINICAL INFORMATION: chest pain COMPARISON: X-ray 06/27/2022 TECHNIQUE: Frontal view of the chest was obtained. FINDINGS: The cardiomediastinal silhouette is within normal limits. Stable mild right hemidiaphragm elevation. There is no focal consolidation, edema, or effusion. No pneumothorax. No acute osseous abnormality. XR/XR chest 1V IMPRESSION: No evidence of acute pulmonary process. Electronically signed by: Darek Bryant MD 03/10/2025 03:12 PM [facility] Dictated By: Darek Bryant MD Signed By: Electronically signed by Darek Bryant MD 03/10/25 1512 I independently interpreted this EKG and am in agreement with the below findings: Vent. Rate: 99 BPM Atrial Rate: 99 BPM P-R Int: 176 ms QRS Dur: 84 ms QT Int: 336 ms P-R-T Axes: 47 -15 102 degrees QTcB Int: 431 ms Normal sinus rhythm No previous ECGs available Electronically Signed By: NITIN ANNE Dictated By: Nitin Anne MD Signed By: Electronically signed by Nitin Anne MD 03/10/25 3576 Radiology Impression Discussion of test interpretation with radiology: I have reviewed the radiologist's reading. Independent Historian Clinical information obtained from an independent historian. History obtained from or confirmed by: EMS (EMS provided additional history and confirmed the history provided by the patient. ) Critical Care Time Critical Care Time Critical Care Time: Yes Total Critical Care Time: 56 Attestation: I spent 56 minutes of Critical Care Time with this patient. This does not include time spent on separately reported billable procedures. Discharge Plan Discharge Clinical Impression: Hypoglycemia, Acute hyperkalemia, Acute epigastric pain, GALEN (acute kidney injury) Patient Disposition: Admitted As Inpatient
[2025-03-10 15:34] LABS: MANUAL DIFF FLAG NO
[2025-03-10 15:35] LABS: Hematocrit 41.2 % (37.0-47.0); Hemoglobin 13.5 g/dl (12.0-16.0); Imm Gran Abs Auto 0.17 X10*3/uL (0.00-0.03); Imm Gran Pct Auto 1.6 % (0.0-0.4); Lymphocytes Absolute Auto 2.1 X10*3/uL (1.2-4.9); Mean Corpuscular HGB Conc 32.8 g/dl (31.0-35.0); Mean Corpuscular Hemoglobin 30.8 pg (27.0-33.0); Mean Corpuscular Volume 93.8 fL (80.0-98.0); NRBC Abs Auto 0.000 X10*3/uL (0.0-0.012); NRBC Pct Auto 0.0 /100WBC (0.0-0.2); Platelet Count 442 X10*3/uL (160-400); Red Blood Count 4.39 X10*6/uL (4.20-5.50); White Blood Count 10.8 X10*3/uL (4.8-10.8)
[2025-03-10 15:44] LABS: INTERNATIONAL NORM RATIO 1.1 (0.9-1.1); Prothrombin Time 13.1 SEC (11.2-13.5)
--- NOTE | 2025-03-10 15:50 | PC.NURSE ---
Called to exam room by pt, pt request bgl to be checked. Pt appears flushed, c/o feeling hot, weak, and thirsty. Bgl checked and was found to be 40. Provider aware, new orders received
[2025-03-10 15:57] LABS: Alanine Aminotransferase 11 U/L (0-31); Albumin Level 5.0 g/dL (3.5-5.0); Alkaline Phosphatase 47 U/L (39-117); Anion Gap 21 (12-20); Aspartate Amino Transferase 20 U/L (5-31); Blood Urea Nitrogen 88 mg/dL (9-16); Calcium 11.5 mg/dL (8.4-10.2); Carbon Dioxide 23 mmol/L (22-29); Chloride 95 mmol/L (96-108); Creatinine Clr Calc Pharmacy 18.4; Estimated Glomerular Filt Rate 18; Potassium 5.3 mmol/L (3.3-5.1); Sodium 134 mmol/L (135-145); Total Protein 8.1 g/dL (6.5-8.0)
[2025-03-10 16:03] LABS: Troponin-I High Sensitivity 11.8 ng/L (<3.5-17.0)
--- NOTE | 2025-03-10 16:18 | HO.NURTONUR ---
Pt BIBA w/ c/o feeling lightheaded and epigastric pain x 1 week. She also states she has been having trouble maintaning her bgls up over the past week d/t lack of decr po intake. Pt admitted for GALEN Bun/Cr 88/2.54 and hypoglycemia. Pts bgl on scene by EMS was 62, tx'd w/ 15 GM of oral glucose, repeat bgl per EMS was 63. In ED pt noted to have episode of bgl 40, c/o feeling lightheaded, flushed, and increased thirst. Pt tx'd w/ q amp D50. Repeat bgl 127. Pt started on D5LR @ 50. CT results pending at the time of writing this note
[2025-03-10] MEDS: Magnesium Hydrox/Alum Hydrox 30 ML ORAL.SUSP 15 ML PO (16:33)
[2025-03-10] MEDS: Dextrose 5 % and Lactated Ring 1,000 ML 100 ML IVCONT (16:35)
[2025-03-10 16:57] VITALS: BP 118/70; PULSE 70; RESP 20; O2SAT 95
[2025-03-10 17:37] LABS: Glucose, Whole Blood 127 mg/dL (60-115)
[2025-03-10 17:38] LABS: Glucose, Whole Blood 40 mg/dL (60-115)
[2025-03-10 18:00] VITALS: BP 138/80
--- NOTE | 2025-03-10 18:14 | HO.NURTONUR ---
Pt Missy from home, per son, pt c/o h/a last , atraumatic, since then has had increasing confusion described as less communicative, and not following basic commands. Pt is alert, oriented to self, but otherwise confused. At times pt needs to be coached on commands as though she is unsure of what to do. Pt was able to ambulate without assistive devices from w/c to bed. Pt denies any c/o's otherwise. Pt is incontinent and wears depends. Family attentive at bedside.
[2025-03-10 20:12] VITALS: BP 105/56; PULSE 94; RESP 16; O2SAT 95
[2025-03-10 20:18] LABS: Glucose, Whole Blood 72 mg/dL (60-115)
--- NOTE | 2025-03-10 20:23 | PHA.MEDREC ---
Pharmacy Consult ? Medication Reconciliation Pharmacy has completed the medication reconciliation.Pt no longer taking crestor due to muscle cramps, cramps started after dose increased to 20 mg. Pt takes lantus sparingly depending on blood glucose
--- NOTE | 2025-03-10 22:52 | PC.NURSE ---
While hanging newbag of ivf, pt noted to have bp 95/50. Pt is awakes to verbal stimuli and denies c/o's. Dr. Goodwin made aware via tiger text. Ivg's continue to infuse as ordered.
[2025-03-10] MEDS: Dextrose 5 % and Lactated Ring 1,000 ML 200 ML IVCONT (22:54)
[2025-03-10 23:46] LABS: Glucose, Whole Blood 62 mg/dL (60-115)
[2025-03-10] MEDS: Hydrocortisone Sod Succ/PF 100 MG VIAL 50 MG IVPUSH (23:50)
[2025-03-10 23:52] LABS: Appearance Urine Clear; Glucose Urine UA Negative (Negative); PH 5.0 (5.0-9.0); Specific Gravity - Urine 1.010 (1.005-1.025); UMIC TRIGGER UACC YES
--- NOTE | 2025-03-10 23:56 | PC.NURSE ---
This RN assumed pt care @ 2300. Pt a&ox4, no signs of distress. Pt reports 6/10 back pain that is chronic Pt medicated per mar Pts vitals stable Pts POC 62 Devinini notified and aware. Plan of care ongoing.
[2025-03-10 23:57] LABS: UACC Culture Trigger YES
[2025-03-11] VITALS (18 sets, daily range): BP systolic 100–154; BP diastolic 58–88; PULSE 75–107; RESP 15–24; TEMP 36.1–36.8; O2SAT 90–99; BMI 39.2
--- NOTE | 2025-03-11 00:06 | PC.NURSE ---
Pt medicated per [facility] Plan of care ongoing.
--- NOTE | 2025-03-11 00:17 | PC.NURSE ---
Pt requested and given pillow for lower back and denture container Plan of care ongoing.
[2025-03-11 00:23] LABS: Glucose, Whole Blood 181 mg/dL (60-115)
[2025-03-11 01:13] LABS: Glucose, Whole Blood 126 mg/dL (60-115)
[2025-03-11 03:57] LABS: Glucose, Whole Blood 102 mg/dL (60-115)
--- NOTE | 2025-03-11 03:59 | PM.IMHP ---
History of Present Illness Date of Service: 03/11/25 Chief Complaint: Abdominal pain 79-year-old female with a past medical history of obesity, VIRI, arthritis, diabetes, CKD, hypertension; presented to the hospital today with a chief complaint of abdominal pain. Patient reported that for about a week she has been not feeling well; has been having pain whenever she eats food. Feels like squeezing pain in her stomach after eating. Denies any signs of bleeding. Reports that she takes Advil for her arthritis and lately she has been taking more frequently. For about a week she has not been eating and drinking. Also has not been taking her insulins. Denies any chest pain or palpitations. Denies any fever chills cough or sputum production. Review of all other systems is negative except mentioned above ER course: Per ER team, patient's CT abdomen pelvis showed no acute findings. Patient abdominal exam was benign. Noted to have GALEN. Patient blood glucose level was in 30s. Patient was started on D5 LR at 200 cc/hour Also noted elevated calcium. [facility] Medical History Diverticulosis Diabetes Elevated cholesterol HTN (hypertension) Restrictive lung disease Somnolence, daytime Snoring VIRI (obstructive sleep apnea) Dyspnea on exertion Obesity (BMI 35.0-39.9 without comorbidity) Family History Mother Colon cancer Diabetes Heart disease Brother Colon cancer Father Angina at rest Surgical History Hx of cataract extraction H/O colonoscopy History of dilatation and curettage H/O: knee surgery Social History Household Members: None Housing: Apartment Alcohol intake: never Patient Tobacco Use Status: Never used Tobacco Smoked in Last 30 Days: No Use of substances other than those prescribed or required for medical reasons: No Advance Directives: No Advance Directives Information Provided: No Do you have a plan to hurt others: No Plan Meds Allergies Allergy/AdvReac Type Severity Reaction Status Date / Time Etybkvx-NHS-PfT Reductase Allergy Severe SEVERE Verified 03/10/25 14:40 Inhibitor (EZYOMBI-BIG-LSZ DIARRHEA REDUCTASE INHIBITOR) Active Medications: Current Medications Acetaminophen (Acetaminophen 325 Mg Tablet) 650 mg PO Q6H PRN PRN Reason: Pain, Mild 1-3,fever,headache Calcium Carbonate (Calcium Carbonate 750 Mg Tab.Chew) 750 mg PO Q4H PRN PRN Reason: Heartburn Dextrose (Dextrose 50 % 25 Gm/50 Ml Syringe) 25 gm IVPUSH Q15M PRN; Protocol PRN Reason: per Hypoglycemia Standing Ord. Last Admin: 03/11/25 00:01 Dose: 25 gm Glucose (Glucose Gel 15 Gm Gel..Gram.) 15 gm PO Q15M PRN; Protocol PRN Reason: per Hypoglycemia Standing Ord. Heparin Sodium (Porcine) (Heparin Sodium,Porcine 5,000 Unit/Ml Vial) 5,000 unit SUBCUT Q8H [facility] Last Admin: 03/11/25 03:45 Dose: 5,000 unit Hydromorphone HCl (Hydromorphone Hcl 1 Mg/Ml Syringe) 0.5 mg IVPUSH Q4H PRN; Protocol PRN Reason: Breakthrough Pain Dextrose/Lactated Ringer's (D5lr) 1,000 mls @ 200 mls/hr IVCONT .Q5H [facility] Last Admin: 03/10/25 22:54 Dose: 200 mls/hr Magnesium Hydroxide (Milk Of Magnesia 30 Ml Oral.Susp) 30 ml PO DAILY PRN PRN Reason: Constipation Melatonin (Melatonin 3 Mg Tablet) 6 mg PO BEDTIME PRN PRN Reason: Insomnia Pantoprazole Sodium (Pantoprazole Sodium 40 Mg/10 Ml Vial) 40 mg IVPUSH BID@0630,1630 [facility] Last Admin: 03/10/25 23:46 Dose: 40 mg Sodium Chloride (0.9 % Sodium Chloride Flush 3 Ml Syringe) 3 ml IVFLUSH QSHIFT [facility] Last Admin: 03/11/25 00:07 Dose: Not Given Home Medications ?Medication ?Instructions ?Recorded ?Confirmed ?Last Taken ?Type cholecalciferol (vitamin D3) 50 50 mcg PO BEDTIME 09/06/21 03/10/25 03/09/25 History mcg (2,000 unit) tablet gemfibrozil 600 mg tablet 600 mg PO BID 09/06/21 03/10/25 03/10/25 History glipizide 10 mg tablet 20 mg PO BID 09/06/21 03/10/25 03/10/25 History insulin glargine 100 unit/mL (3 35 unit subcut BEDTIME 09/06/21 03/10/25 Unknown History mL) subcutaneous pen (Lantus Solostar U-100 Insulin) lisinopril 10 mg tablet 10 mg PO BEDTIME 09/06/21 03/10/25 03/09/25 History loratadine 10 mg tablet 10 mg PO BEDTIME 09/06/21 03/10/25 03/09/25 History metformin 1,000 mg tablet 1,000 mg PO BID 09/06/21 03/10/25 03/10/25 History omega-3 acid ethyl esters 1 gram 1 cap PO DAILY 09/06/21 03/10/25 03/10/25 History capsule sertraline 25 mg tablet 25 mg PO DAILY 09/06/21 03/10/25 03/10/25 History triamterene 37.5 1 cap PO DAILY 09/06/21 03/10/25 03/10/25 History mg-hydrochlorothiazide 25 mg capsule aspirin 81 mg chewable tablet 81 mg PO BEDTIME 07/17/22 03/10/25 03/09/25 History dapagliflozin propanediol 10 mg 10 mg PO DAILY 03/10/25 03/10/25 03/10/25 History tablet (Farxiga) furosemide 20 mg tablet 20 mg PO DAILY 03/10/25 03/10/25 03/10/25 History tirzepatide 2.5 mg/0.5 mL 2.5 mg subcut GATES 03/10/25 03/10/25 03/08/25 History subcutaneous pen injector (Nixonundotty) Physical Exam Vital Signs and Narrative: Vital Signs: Last Vital Signs Temp 97.9 F 03/10/25 14:37 Pulse 82 03/11/25 00:00 Resp 20 03/11/25 00:00 BP 115/59 L 03/11/25 00:00 Pulse Ox 99 03/11/25 00:00 O2 Del Method Nasal Cannula 03/11/25 00:00 BMI result Body Mass Index 38.2 Gen: Appears be in no acute distress HEENT: NCAT, Moist mucosa. Pulmonary: Vesicular breath sounds, fair air entry CVS: Normal S1-S2 Abdomen: BS+, Soft, Nontender Extremities: Warm well perfused Neuro: Alert and awake. Results Labs 03/10/25 15:07 03/10/25 15:07 Labs: Laboratory Results - last 24 hr 03/10/25 03/10/25 03/10/25 15:07 15:38 16:26 MCV 93.8 MCH 30.8 MCHC 32.8 RDW 13.2 Plt Count 442 H MPV 10.4 Immature Gran % (Auto) 1.6 H Neut % (Auto) 72.4 Lymph % (Auto) 19.0 L [place] % (Auto) 6.0 Eos % (Auto) 0.4 Baso % (Auto) 0.6 Lymph # (Auto) 2.1 [place] # (Auto) 0.7 Eos # (Auto) 0.0 Baso # (Auto) 0.1 Abs Immat Gran (auto) 0.17 H Absolute Neuts (auto) 7.8 Absolute Nucleated RBC 0.000 Nucleated RBC % (auto) 0.0 PT 13.1 INR 1.1 Anion Gap 21 H Estim Creat Clear Calc 18.4 Estimated GFR 18 POC Glucose 40 L* 127 H Random Glucose 31 L* Calcium 11.5 H D Total Bilirubin 0.2 AST 20 ALT 11 Alkaline Phosphatase 47 Troponin I High Sens 11.8 Total Protein 8.1 H Albumin 5.0 Random Cortisol Urine Color Urine Appearance Urine pH Ur Specific [place] Urine Protein Urine Glucose (UA) Urine Ketones Urine Blood Urine Nitrite Ur Leukocyte Esterase Urine RBC Urine WBC Ur Squamous Epith Cells Urine Bacteria Hyaline Casts 03/10/25 03/10/25 03/10/25 20:15 23:37 23:43 MCV MCH MCHC RDW Plt Count MPV Immature Gran % (Auto) Neut % (Auto) Lymph % (Auto) [place] % (Auto) Eos % (Auto) Baso % (Auto) Lymph # (Auto) [place] # (Auto) Eos # (Auto) Baso # (Auto) Abs Immat Gran (auto) Absolute Neuts (auto) Absolute Nucleated RBC Nucleated RBC % (auto) PT INR Anion Gap Estim Creat Clear Calc Estimated GFR POC Glucose 72 62 Random Glucose Calcium Total Bilirubin AST ALT Alkaline Phosphatase Troponin I High Sens Total Protein Albumin Random Cortisol Urine Color Yellow Urine Appearance Clear Urine pH 5.0 Ur Specific [place] 1.010 Urine Protein Negative Urine Glucose (UA) Negative Urine Ketones Negative Urine Blood Negative Urine Nitrite Negative Ur Leukocyte Esterase Small (1+) H Urine RBC 0-2 Urine WBC 6-10 H Ur Squamous Epith Cells 0-2 Urine Bacteria None Seen Hyaline Casts 0-2 03/11/25 03/11/25 03/11/25 00:18 00:59 01:09 MCV MCH MCHC RDW Plt Count MPV Immature Gran % (Auto) Neut % (Auto) Lymph % (Auto) [place] % (Auto) Eos % (Auto) Baso % (Auto) Lymph # (Auto) [place] # (Auto) Eos # (Auto) Baso # (Auto) Abs Immat Gran (auto) Absolute Neuts (auto) Absolute Nucleated RBC Nucleated RBC % (auto) PT INR Anion Gap Estim Creat Clear Calc Estimated GFR POC Glucose 181 H 126 H Random Glucose Calcium Total Bilirubin AST ALT Alkaline Phosphatase Troponin I High Sens Total Protein Albumin Random Cortisol 38.4 Urine Color Urine Appearance Urine pH Ur Specific [place] Urine Protein Urine Glucose (UA) Urine Ketones Urine Blood Urine Nitrite Ur Leukocyte Esterase Urine RBC Urine WBC Ur Squamous Epith Cells Urine Bacteria Hyaline Casts 03/11/25 03:51 MCV MCH MCHC RDW Plt Count MPV Immature Gran % (Auto) Neut % (Auto) Lymph % (Auto) [place] % (Auto) Eos % (Auto) Baso % (Auto) Lymph # (Auto) [place] # (Auto) Eos # (Auto) Baso # (Auto) Abs Immat Gran (auto) Absolute Neuts (auto) Absolute Nucleated RBC Nucleated RBC % (auto) PT INR Anion Gap Estim Creat Clear Calc Estimated GFR POC Glucose 102 Random Glucose Calcium Total Bilirubin AST ALT Alkaline Phosphatase Troponin I High Sens Total Protein Albumin Random Cortisol Urine Color Urine Appearance Urine pH Ur Specific [place] Urine Protein Urine Glucose (UA) Urine Ketones Urine Blood Urine Nitrite Ur Leukocyte Esterase Urine RBC Urine WBC Ur Squamous Epith Cells Urine Bacteria Hyaline Casts Imaging Radiologist's Impressions: Impressions Chest X-Ray 03/10/25 14:55 IMPRESSION: No evidence of acute pulmonary process. Electronically signed by: Darek Bryant MD 03/10/2025 03:12 PM [facility] Abdomen/Pelvis CT 03/10/25 16:09 IMPRESSION: 1. No acute finding in the abdomen or pelvis. 2. There is colonic diverticulosis without evidence of acute diverticulitis. 3. There is a probable dorsal uterine fibroid present. 4. There are additional ancillary findings as discussed in the body of the report. Electronically signed by: Hunter Lazo MD 03/10/2025 04:44 PM EST Assessment and Plan (1) Hypoglycemia: Status: Acute Plan 79-year-old female with a past medical history of obesity, VIRI, arthritis, diabetes, CKD, hypertension; presented to the hospital today with a chief complaint of abdominal pain. Abdominal pain: Mostly postprandial Concern for possible peptic ulcer disease given NSAIDs use IV PPI b.i.d. Clear liquid diet GI consult for possible EGD GALEN on CKD: Baseline creatinine around 1.6 Creatinine on presentation is 2.5 Patient also has recent NSAIDs use and decreased oral intake-likely contributing Patient on IV fluids Follow-up repeat levels Hold home lisinopril If not improving please consider nephrology consult Hypoglycemia: Likely in setting of poor intake. Patient has persistent hypoglycemia in the ER-improving on IV fluids-D5 LR Hold home insulin regimen. Will defer to day team to consider discontinuing home glipizide at the time of discharge Hypertension: Blood pressure on the low normal side. Hold home lisinopril. Home Lasix on hold. Mild hyperkalemia: Follow-up lipid levels in a.m. Mild hyponatremia: Will monitor UTI: Continue ceftriaxone. Follow up cultures Depression: Continue home sertraline DVT prophylaxis: SCD boots Code status: Full code Quality Stroke Does the patient have a stroke diagnosis?: No VTE Prior VTE?: No VTE Risk Level:: Medical - moderate - high VTE Device Contraindication: Treatment Not Indicated VTE Drug Contraindication: N/A - Med Ordered
[2025-03-11] MEDS: Dextrose 5 % and Lactated Ring 1,000 ML 200 ML IVCONT ×2 (04:09→09:20)
--- NOTE | 2025-03-11 04:14 | PC.NURSE ---
Pt assisted to the bedside commode and back into bed. Pt medicated per mar Plan of care ongoing.
[2025-03-11 05:00] LABS: MANUAL DIFF FLAG NO
[2025-03-11 05:01] LABS: Hematocrit 34.4 % (37.0-47.0); Hemoglobin 11.2 g/dl (12.0-16.0); Imm Gran Abs Auto 0.12 X10*3/uL (0.00-0.03); Imm Gran Pct Auto 1.7 % (0.0-0.4); Lymphocytes Absolute Auto 1.3 X10*3/uL (1.2-4.9); Mean Corpuscular HGB Conc 32.6 g/dl (31.0-35.0); Mean Corpuscular Hemoglobin 30.6 pg (27.0-33.0); Mean Corpuscular Volume 94.0 fL (80.0-98.0); NRBC Abs Auto 0.000 X10*3/uL (0.0-0.012); NRBC Pct Auto 0.0 /100WBC (0.0-0.2); Platelet Count 329 X10*3/uL (160-400); Red Blood Count 3.66 X10*6/uL (4.20-5.50); White Blood Count 7.2 X10*3/uL (4.8-10.8)
[2025-03-11 05:20] LABS: Alanine Aminotransferase 7 U/L (0-31); Albumin Level 4.1 g/dL (3.5-5.0); Alkaline Phosphatase 39 U/L (39-117); Anion Gap 14 (12-20); Aspartate Amino Transferase 17 U/L (5-31); Blood Urea Nitrogen 78 mg/dL (9-16); Calcium 10.0 mg/dL (8.4-10.2); Carbon Dioxide 22 mmol/L (22-29); Chloride 103 mmol/L (96-108); Creatinine Clr Calc Pharmacy 21.7; Estimated Glomerular Filt Rate 22; Potassium 4.4 mmol/L (3.3-5.1); Sodium 135 mmol/L (135-145); Total Protein 6.4 g/dL (6.5-8.0)
--- NOTE | 2025-03-11 05:41 | PC.NURSE ---
Abx ordered, provider notified cultures have not been obtained. New order for cultures added. electrical power station technician attempting first set of cultures Plan of care ongoing.
--- NOTE | 2025-03-11 06:01 | PC.NURSE ---
2x cultures obtained Pt medicated per [facility] Plan of care ongoing.
--- NOTE | 2025-03-11 06:56 | PC.NURSE ---
Pt medicated per [facility] Plan of care ongoing.
--- NOTE | 2025-03-11 07:57 | PC.NURSE ---
alert and oriented with even and unlabored respirations. states she is independent with all care at home, one assist to stand and get out of bed. utilizing bedside commode. offers no complaints at this time.
[2025-03-11 09:11] LABS: Glucose, Whole Blood 118 mg/dL (60-115)
--- NOTE | 2025-03-11 09:18 | PM.GICN ---
History of Present Illness Data of Consult Service Date: 03/11/25 Primary Care Provider: Daiana Trevino MD [facility] Reason for consult: abdo pain 79-year-old female with a past medical history of obesity, VIRI, arthritis, diabetes, CKD, hypertension who I am seeing for assessment for abdominal pain Patient noted sh has 2 weeks of worsening severe post prandial pain 10/10 in peigastric area w/o radiation, and relieved with avoiding food. Pain is like a squeezing sensation,. Denies any chest pain or palpitations. has mild nausea but no vomiting. No melena, or rectal bleeding, denies diarrhea or constipation, GERD sx. no dysphagia. She does take advil for OA but only prn and not every day. She is also on mounjaro. Imaging: no acute findings LABS: mild anemia, and stage IV CKD PMFSH Past Medical History Medical History Diverticulosis Diabetes Elevated cholesterol HTN (hypertension) Restrictive lung disease Somnolence, daytime Snoring VIRI (obstructive sleep apnea) Dyspnea on exertion Obesity (BMI 35.0-39.9 without comorbidity) Family History Family History Mother Colon cancer Diabetes Heart disease Brother Colon cancer Father Angina at rest Surgical History Surgical History Hx of cataract extraction H/O colonoscopy History of dilatation and curettage H/O: knee surgery Social History Social History Household Members: None Housing: Apartment Do you presently have visiting nurse or other home services: No Alcohol intake: never Patient Tobacco Use Status: Never used Tobacco service: No Meds Allergies Allergy/AdvReac Type Severity Reaction Status Date / Time [id number]-SFS-ElQ Reductase Allergy Severe SEVERE Verified 03/10/25 14:40 Inhibitor (HPPGAUJ-EAQ-DAM DIARRHEA REDUCTASE INHIBITOR) Active Medications: Current Medications Acetaminophen (Acetaminophen 325 Mg Tablet) 650 mg PO Q6H PRN PRN Reason: Pain, Mild 1-3,fever,headache Calcium Carbonate (Calcium Carbonate 750 Mg Tab.Chew) 750 mg PO Q4H PRN PRN Reason: Heartburn Dextrose (Dextrose 50 % 25 Gm/50 Ml Syringe) 25 gm IVPUSH Q15M PRN; Protocol PRN Reason: per Hypoglycemia Standing Ord. Last Admin: 03/11/25 00:01 Dose: 25 gm Glucose (Glucose Gel 15 Gm Gel..Gram.) 15 gm PO Q15M PRN; Protocol PRN Reason: per Hypoglycemia Standing Ord. Heparin Sodium (Porcine) (Heparin Sodium,Porcine 5,000 Unit/Ml Vial) 5,000 unit SUBCUT Q8H [facility] Last Admin: 03/11/25 03:45 Dose: 5,000 unit Hydromorphone HCl (Hydromorphone Hcl 1 Mg/Ml Syringe) 0.5 mg IVPUSH Q4H PRN; Protocol PRN Reason: Breakthrough Pain Dextrose/Lactated Ringer's (D5lr) 1,000 mls @ 200 mls/hr IVCONT .Q5H [facility] Last Admin: 03/11/25 04:09 Dose: 200 mls/hr Ceftriaxone Sodium 1 gm/ (Sodium Chloride) 50 mls @ 100 mls/hr IV BEDTIME [facility] Last Infusion: 03/11/25 06:07 Dose: Infused Magnesium Hydroxide (Milk Of Magnesia 30 Ml Oral.Susp) 30 ml PO DAILY PRN PRN Reason: Constipation Melatonin (Melatonin 3 Mg Tablet) 6 mg PO BEDTIME PRN PRN Reason: Insomnia Pantoprazole Sodium (Pantoprazole Sodium 40 Mg/10 Ml Vial) 40 mg IVPUSH BID@0630,1630 [facility] Last Admin: 03/11/25 06:53 Dose: 40 mg Sodium Chloride (0.9 % Sodium Chloride Flush 3 Ml Syringe) 3 ml IVFLUSH QSHIFT [facility] Last Admin: 03/11/25 07:46 Dose: Not Given Home Medications ?Medication ?Instructions ?Recorded ?Confirmed ?Last Taken ?Type cholecalciferol (vitamin D3) 50 50 mcg PO BEDTIME 09/06/21 03/10/25 03/09/25 History mcg (2,000 unit) tablet gemfibrozil 600 mg tablet 600 mg PO BID 09/06/21 03/10/25 03/10/25 History glipizide 10 mg tablet 20 mg PO BID 09/06/21 03/10/25 03/10/25 History insulin glargine 100 unit/mL (3 35 unit subcut BEDTIME 09/06/21 03/10/25 Unknown History mL) subcutaneous pen (Lantus Solostar U-100 Insulin) lisinopril 10 mg tablet 10 mg PO BEDTIME 09/06/21 03/10/25 03/09/25 History loratadine 10 mg tablet 10 mg PO BEDTIME 09/06/21 03/10/25 03/09/25 History metformin 1,000 mg tablet 1,000 mg PO BID 09/06/21 03/10/25 03/10/25 History omega-3 acid ethyl esters 1 gram 1 cap PO DAILY 09/06/21 03/10/25 03/10/25 History capsule sertraline 25 mg tablet 25 mg PO DAILY 09/06/21 03/10/25 03/10/25 History triamterene 37.5 1 cap PO DAILY 09/06/21 03/10/25 03/10/25 History mg-hydrochlorothiazide 25 mg capsule aspirin 81 mg chewable tablet 81 mg PO BEDTIME 07/17/22 03/10/25 03/09/25 History dapagliflozin propanediol 10 mg 10 mg PO DAILY 03/10/25 03/10/25 03/10/25 History tablet (Farxiga) furosemide 20 mg tablet 20 mg PO DAILY 03/10/25 03/10/25 03/10/25 History tirzepatide 2.5 mg/0.5 mL 2.5 mg subcut [place] 03/10/25 03/10/25 03/08/25 History subcutaneous pen injector (Mounjaro) Physical Exam Exam: Exam: EXAM: GENERAL: The patient is well developed and nontoxic. VITAL SIGNS:see workflow HEENT: Nonicteric sclerae, PERRLA, EOMI. Oropharynx clear. Moist mucous membranes. Conjunctivae appear well perfused. No thyroid mass. CHEST: Chest wall is nontender. HEART: Regular rate and rhythm without murmurs. LUNGS: Clear to auscultation bilaterally. ABDOMEN: Soft, positive bowel sounds, tender epigastrium, no organomegaly.no flank tenderness SKIN: No rash, no excessive bruising, petechiae, or purpura. NEUROLOGIC: Cranial nerves II-XII intact without motor/sensory deficit. Psych: normal affect Vital Signs: Vital Signs: Last Vital Signs Temp 97.6 F 03/11/25 09:06 Pulse 89 03/11/25 09:06 Resp 16 03/11/25 09:06 BP 107/59 L 03/11/25 09:06 Pulse Ox 95 03/11/25 09:06 O2 Del Method Room Air 03/11/25 09:06 O2 Flow Rate 2 03/11/25 04:08 BMI result Body Mass Index 38.2 Results Labs 03/11/25 04:54 03/11/25 04:54 Labs: Short CBC 03/10/25 03/11/25 Range/Units 15:07 04:54 WBC 10.8 7.2 (4.8-10.8) X10*3/uL Hgb 13.5 11.2 L (12.0-16.0) g/dl Hct 41.2 34.4 L (37.0-47.0) % Plt Count 442 H 329 D (160-400) X10*3/uL BMP 03/10/25 03/11/25 15:07 04:54 Sodium 134 L 135 Potassium 5.3 H D 4.4 Chloride 95 L 103 Carbon Dioxide 23 22 BUN 88 H 78 H Creatinine 2.54 H 2.17 H Calcium 11.5 H D 10.0 D Liver Function 03/10/25 03/11/25 Range/Units 15:07 04:54 Total Bilirubin 0.2 0.2 (0.0-1.0) mg/dL AST 20 17 (5-31) U/L ALT 11 7 (0-31) U/L Alkaline Phosphatase 47 39 (39-117) U/L Albumin 5.0 4.1 (3.5-5.0) g/dL Urine 03/10/25 Range/Units 23:43 Urine Color Yellow Urine Appearance Clear Urine pH 5.0 (5.0-9.0) Ur Specific [place] 1.010 (1.005-1.025) Urine Protein Negative (Neg-Trace) mg/dL Urine Glucose (UA) Negative (Negative) mg/dL Imaging CT scan - abdomen: Attestation: I personally reviewed and interpreted this imaging study as follows: (dense material in stomach, osteopenia, spondylosis, atherosclerosis ) Assessment and Plan (1) Acute epigastric pain: Status: Acute Plan 1/ Post prandial pain with anemia and worsening CKD, could have ulcer with bleeding focus ralf with some dense material noted on CT--maybe due to nsaid use PLAN: /1 Cont with PPI 2/ Clears and EGD today for further assessement, given significant pain and drop in HGB will be emergent with plan for [place] Procedures Date of Service Date of Service: 03/11/25
--- NOTE | 2025-03-11 09:36 | MHC.CM.PN ---
Addendum entered by Gabi Moran 03/11/25 12:31: Copy of HCP obtained from [facility]. Original Note: Met with patient in regards to discharge planning. Patient lives alone, ambulates independently and had no services prior to coming to the hospital. Patient still drives. No services anticipated to be needed because patient is not home bound. PCP verified. Patient's states PCP's office has a copy of HCP. IMM explained and signed. Patient will arrange transport when medically stable. Patient typically drives herself. However she came to the hospital via ambulance. T/W spoke with [facility]. They do not have a HCP on file. Continue to monitor for d/c needs.
--- NOTE | 2025-03-11 11:14 | PC.NURSE ---
D5LR d/c'd for transfer to [facility] by [facility] farmer.
[2025-03-11] MEDS: Lactated Ringers 1,000 ML 80 ML IVCONT (11:33)
--- NOTE | 2025-03-11 11:42 | HO.ANESPROP2 ---
Documented by User: Albertina Lo NP 03/11/25 10:35 HPI - Anesthesia Eval Consult details Narrative: 79 yr old female for upper endoscopy No CP or SOB with very light activity 2/2 knee cap pain & back pain. No recent illness VIRI: CPAP with O2 assist High triglycerides: 403 Jan 2025 Anesthesia Pre-Procedure Meds Is the patient on any of the following meds?: GLP1/DPP4 (03/08 pm) PMFSH Active Problems Active Problems: All Active Problems GALEN (acute kidney injury) (Acute) Acute epigastric pain (Acute) Acute hyperkalemia (Acute) Hypoglycemia (Acute) Renal cyst (Acute) Uterine myoma (Acute) Thickened endometrium (Acute) TOA (tubo-ovarian abscess) (Acute) Complex cyst of uterine adnexa (Acute) Postmenopausal bleeding (Acute) Muscle strain (Acute) Diverticulosis (Acute) Screening for colon cancer (Acute) Abnormal ultrasound of endometrium (Acute) Myoma (Acute) Restrictive lung disease (Acute) Somnolence, daytime (Acute) Snoring (Acute) VIRI (obstructive sleep apnea) (Acute) Dyspnea on exertion (Acute) Obesity (BMI 35.0-39.9 without comorbidity) (Acute) Past Medical History Medical History (Updated 03/11/25 @ 11:30 by Leandro Craft RN) Osteoarthritis Diverticulosis Diabetes Elevated cholesterol HTN (hypertension) Restrictive lung disease Somnolence, daytime Snoring VIRI (obstructive sleep apnea) Dyspnea on exertion Obesity (BMI 35.0-39.9 without comorbidity) Family History Family History Mother Colon cancer Diabetes Heart disease Brother Colon cancer Father Angina at rest Family history of problems with anesthesia: No Surgical History Surgical History Hx of cataract extraction H/O colonoscopy History of dilatation and curettage H/O: knee surgery History of Problems with Anesthesia: No Social History Social History Household Members: None Housing: Apartment Are you a primary life care planner to a significant other at home: No Do you presently have visiting nurse or other home services: No Alcohol intake: never Patient Tobacco Use Status: Never used Tobacco Smoked in Last 30 Days: No Second Hand Smoke Exposure: No Use of substances other than those prescribed or required for medical reasons: No Have you been hit, kicked, punched, or otherwise hurt by someone within the past year? If so, by whom?: No Do you feel safe in your current relationship?: No Current Relationship Is there a partner from a previous relationship who is making you feel unsafe now?: No Are you made to feel afraid or neglected: No Are you DNR?: No Advance Directives: No Advance Directives Information Provided: No Advance Directives on File: No Do you have a plan to hurt others: No Plan Recently lost weight without trying: No Nutrition Risks: No Nutritional Risk Patient : No : No Poor oral hygiene: No service: No Meds Allergies Allergy/AdvReac Type Severity Reaction Status Date / Time Mujbuhk-[id number]-[id number] Reductase Allergy Severe SEVERE Verified 03/10/25 14:40 Inhibitor (SOIIFAC-EDD-GTV DIARRHEA REDUCTASE INHIBITOR) Active Medications: Current Medications Acetaminophen (Acetaminophen 325 Mg Tablet) 650 mg PO Q6H PRN PRN Reason: Pain, Mild 1-3,fever,headache Calcium Carbonate (Calcium Carbonate 750 Mg Tab.Chew) 750 mg PO Q4H PRN PRN Reason: Heartburn Dextrose (Dextrose 50 % 25 Gm/50 Ml Syringe) 25 gm IVPUSH Q15M PRN; Protocol PRN Reason: per Hypoglycemia Standing Ord. Last Admin: 03/11/25 00:01 Dose: 25 gm Glucose (Glucose Gel 15 Gm Gel..Gram.) 15 gm PO Q15M PRN; Protocol PRN Reason: per Hypoglycemia Standing Ord. Heparin Sodium (Porcine) (Heparin Sodium,Porcine 5,000 Unit/Ml Vial) 5,000 unit SUBCUT Q8H [facility] Last Admin: 03/11/25 03:45 Dose: 5,000 unit Hydromorphone HCl (Hydromorphone Hcl 1 Mg/Ml Syringe) 0.5 mg IVPUSH Q4H PRN; Protocol PRN Reason: Breakthrough Pain Dextrose/Lactated Ringer's (D5lr) 1,000 mls @ 200 mls/hr IVCONT .Q5H [facility] Last Admin: 03/11/25 09:20 Dose: 200 mls/hr Ceftriaxone Sodium 1 gm/ (Sodium Chloride) 50 mls @ 100 mls/hr IV BEDTIME [facility] Last Infusion: 03/11/25 06:07 Dose: Infused Erythromycin Lactobionate 250 (mg/ Sodium Chloride) 100 mls @ 100 mls/hr IV ONCE ONE Stop: 03/11/25 10:59 Magnesium Hydroxide (Milk Of Magnesia 30 Ml Oral.Susp) 30 ml PO DAILY PRN PRN Reason: Constipation Melatonin (Melatonin 3 Mg Tablet) 6 mg PO BEDTIME PRN PRN Reason: Insomnia Pantoprazole Sodium (Pantoprazole Sodium 40 Mg/10 Ml Vial) 40 mg IVPUSH BID@0630,1630 [facility] Last Admin: 03/11/25 06:53 Dose: 40 mg Sodium Chloride (0.9 % Sodium Chloride Flush 3 Ml Syringe) 3 ml IVFLUSH QSHIFT [facility] Last Admin: 03/11/25 07:46 Dose: Not Given Home Medications ?Medication ?Instructions ?Recorded ?Confirmed ?Last Taken ?Type cholecalciferol (vitamin D3) 50 50 mcg PO BEDTIME 09/06/21 03/10/25 03/09/25 History mcg (2,000 unit) tablet gemfibrozil 600 mg tablet 600 mg PO BID 09/06/21 03/10/25 03/10/25 History glipizide 10 mg tablet 20 mg PO BID 09/06/21 03/10/25 03/10/25 History insulin glargine 100 unit/mL (3 35 unit subcut BEDTIME 09/06/21 03/10/25 Unknown History mL) subcutaneous pen (Lantus Solostar U-100 Insulin) lisinopril 10 mg tablet 10 mg PO BEDTIME 09/06/21 03/10/25 03/09/25 History loratadine 10 mg tablet 10 mg PO BEDTIME 09/06/21 03/10/25 03/09/25 History metformin 1,000 mg tablet 1,000 mg PO BID 09/06/21 03/10/25 03/10/25 History omega-3 acid ethyl esters 1 gram 1 cap PO DAILY 09/06/21 03/10/25 03/10/25 History capsule sertraline 25 mg tablet 25 mg PO DAILY 09/06/21 03/10/25 03/10/25 History triamterene 37.5 1 cap PO DAILY 09/06/21 03/10/25 03/10/25 History mg-hydrochlorothiazide 25 mg capsule aspirin 81 mg chewable tablet 81 mg PO BEDTIME 07/17/22 03/10/25 03/09/25 History dapagliflozin propanediol 10 mg 10 mg PO DAILY 03/10/25 03/10/25 03/10/25 History tablet (Farxiga) furosemide 20 mg tablet 20 mg PO DAILY 03/10/25 03/10/25 03/10/25 History tirzepatide 2.5 mg/0.5 mL 2.5 mg subcut GATES 03/10/25 03/10/25 03/08/25 History subcutaneous pen injector (Mounjaro) Exam Height,Weight and Vital Signs: Height 5 ft 1 in Weight 91.626 kg Last Vital Signs Temp 97.6 F 03/11/25 09:06 Pulse 89 03/11/25 09:06 Resp 16 03/11/25 09:06 BP 107/59 L 03/11/25 09:06 Pulse Ox 95 03/11/25 09:06 O2 Del Method Room Air 03/11/25 09:06 O2 Flow Rate 2 03/11/25 04:08 Pertinent Lab Results Pertinent Lab Results: Laboratory Tests 03/10/25 03/10/25 03/10/25 15:07 15:38 16:26 WBC 10.8 RBC 4.39 Hgb 13.5 Hct 41.2 MCV 93.8 MCH 30.8 MCHC 32.8 RDW 13.2 Plt Count 442 H MPV 10.4 Immature Gran % (Auto) 1.6 H Neut % (Auto) 72.4 Lymph % (Auto) 19.0 L [place] % (Auto) 6.0 Eos % (Auto) 0.4 Baso % (Auto) 0.6 Lymph # (Auto) 2.1 [place] # (Auto) 0.7 Eos # (Auto) 0.0 Baso # (Auto) 0.1 Abs Immat Gran (auto) 0.17 H Absolute Neuts (auto) 7.8 Absolute Nucleated RBC 0.000 Nucleated RBC % (auto) 0.0 PT 13.1 INR 1.1 Sodium 134 L Potassium 5.3 H D Chloride 95 L Carbon Dioxide 23 Anion Gap 21 H BUN 88 H Creatinine 2.54 H Estim Creat Clear Calc 18.4 Estimated GFR 18 POC Glucose 40 L* 127 H Random Glucose 31 L* Calcium 11.5 H D Total Bilirubin 0.2 AST 20 ALT 11 Alkaline Phosphatase 47 Troponin I High Sens 11.8 Total Protein 8.1 H Albumin 5.0 Random Cortisol Urine Color Urine Appearance Urine pH Ur Specific [place] Urine Protein Urine Glucose (UA) Urine Ketones Urine Blood Urine Nitrite Ur Leukocyte Esterase Urine RBC Urine WBC Ur Squamous Epith Cells Urine Bacteria Hyaline Casts 03/10/25 03/10/25 03/10/25 20:15 23:37 23:43 WBC RBC Hgb Hct MCV MCH MCHC RDW Plt Count MPV Immature Gran % (Auto) Neut % (Auto) Lymph % (Auto) [place] % (Auto) Eos % (Auto) Baso % (Auto) Lymph # (Auto) [place] # (Auto) Eos # (Auto) Baso # (Auto) Abs Immat Gran (auto) Absolute Neuts (auto) Absolute Nucleated RBC Nucleated RBC % (auto) PT INR Sodium Potassium Chloride Carbon Dioxide Anion Gap BUN Creatinine Estim Creat Clear Calc Estimated GFR POC Glucose 72 62 Random Glucose Calcium Total Bilirubin AST ALT Alkaline Phosphatase Troponin I High Sens Total Protein Albumin Random Cortisol Urine Color Yellow Urine Appearance Clear Urine pH 5.0 Ur Specific [place] 1.010 Urine Protein Negative Urine Glucose (UA) Negative Urine Ketones Negative Urine Blood Negative Urine Nitrite Negative Ur Leukocyte Esterase Small (1+) H Urine RBC 0-2 Urine WBC 6-10 H Ur Squamous Epith Cells 0-2 Urine Bacteria None Seen Hyaline Casts 0-2 03/11/25 03/11/25 03/11/25 00:18 00:59 01:09 WBC RBC Hgb Hct MCV MCH MCHC RDW Plt Count MPV Immature Gran % (Auto) Neut % (Auto) Lymph % (Auto) [place] % (Auto) Eos % (Auto) Baso % (Auto) Lymph # (Auto) [place] # (Auto) Eos # (Auto) Baso # (Auto) Abs Immat Gran (auto) Absolute Neuts (auto) Absolute Nucleated RBC Nucleated RBC % (auto) PT INR Sodium Potassium Chloride Carbon Dioxide Anion Gap BUN Creatinine Estim Creat Clear Calc Estimated GFR POC Glucose 181 H 126 H Random Glucose Calcium Total Bilirubin AST ALT Alkaline Phosphatase Troponin I High Sens Total Protein Albumin Random Cortisol 38.4 Urine Color Urine Appearance Urine pH Ur Specific [place] Urine Protein Urine Glucose (UA) Urine Ketones Urine Blood Urine Nitrite Ur Leukocyte Esterase Urine RBC Urine WBC Ur Squamous Epith Cells Urine Bacteria Hyaline Casts 03/11/25 03/11/25 03/11/25 03:51 04:54 09:07 WBC 7.2 RBC 3.66 L Hgb 11.2 L Hct 34.4 L MCV 94.0 MCH 30.6 MCHC 32.6 RDW 13.0 Plt Count 329 D MPV 10.0 Immature Gran % (Auto) 1.7 H Neut % (Auto) 72.1 Lymph % (Auto) 18.1 L [place] % (Auto) 6.9 Eos % (Auto) 0.6 Baso % (Auto) 0.6 Lymph # (Auto) 1.3 [place] # (Auto) 0.5 Eos # (Auto) 0.0 Baso # (Auto) 0.0 Abs Immat Gran (auto) 0.12 H Absolute Neuts (auto) 5.2 Absolute Nucleated RBC 0.000 Nucleated RBC % (auto) 0.0 PT INR Sodium 135 Potassium 4.4 Chloride 103 Carbon Dioxide 22 Anion Gap 14 BUN 78 H Creatinine 2.17 H Estim Creat Clear Calc 21.7 Estimated GFR 22 POC Glucose 102 118 H Random Glucose 96 Calcium 10.0 D Total Bilirubin 0.2 AST 17 ALT 7 Alkaline Phosphatase 39 Troponin I High Sens Total Protein 6.4 L Albumin 4.1 Random Cortisol Urine Color Urine Appearance Urine pH Ur Specific [place] Urine Protein Urine Glucose (UA) Urine Ketones Urine Blood Urine Nitrite Ur Leukocyte Esterase Urine RBC Urine WBC Ur Squamous Epith Cells Urine Bacteria Hyaline Casts Narrative Narrative: EKG 02/2025 Vent. Rate : 99 BPM Atrial Rate : 99 BPM P-R Int : 176 ms QRS Dur : 84 ms QT Int : 336 ms P-R-T Axes : 47 -15 102 degrees QTcB Int : 431 ms Normal sinus rhythm Cannot rule out Anterior infarct , age undetermined T wave abnormality, consider lateral ischemia Abnormal ECG No previous ECGs available ECHO 2022 Conclusions: - 1. Normal LV ejection fraction 65-70% with grade 1 diastolic dysfunction 2. Normal cardiac valvular Doppler 3. No gross pericardial effusion Airway Mallampati Class: III TM Dist: >3cm Neck ROM: Full Partial: Lower Loose/Missing/Broken Teeth: Yes and Lower (middle teeth has partial) Heart: RRR Lungs: CTAB Assessment and Plan Final Anesthetic Review Family History of Problems with Anesthesia: No History of Problems with Anesthesia: No Documented by User: Kaylie Carlos DO 03/11/25 11:44 HPI - Anesthesia Eval Consult details Narrative: 79 yr old female for upper endoscopy No CP or SOB with very light activity 2/2 knee cap pain & back pain. No recent illness VIRI: CPAP with O2 assist High triglycerides: 403 Jan 2025 Had juice and coffee at 0830 this morning and lunch yesterday. Anesthesia Pre-Procedure Meds Is the patient on any of the following meds?: GLP1/DPP4 (last dose was on 03/08) [facility] Past Medical History Medical History (Updated 03/11/25 @ 11:30 by Leandro Craft RN) Osteoarthritis Diverticulosis Diabetes Elevated cholesterol HTN (hypertension) Restrictive lung disease Somnolence, daytime Snoring VIRI (obstructive sleep apnea) Dyspnea on exertion Obesity (BMI 35.0-39.9 without comorbidity) Family History Family History Mother Colon cancer Diabetes Heart disease Brother Colon cancer Father Angina at rest Family history of problems with anesthesia: No Surgical History Surgical History Hx of cataract extraction H/O colonoscopy History of dilatation and curettage H/O: knee surgery History of Problems with Anesthesia: No Social History Social History Household Members: None Housing: Apartment Are you a primary life care planner to a significant other at home: No Do you presently have visiting nurse or other home services: No Alcohol intake: never Patient Tobacco Use Status: Never used Tobacco Smoked in Last 30 Days: No Second Hand Smoke Exposure: No Use of substances other than those prescribed or required for medical reasons: No Have you been hit, kicked, punched, or otherwise hurt by someone within the past year? If so, by whom?: No Do you feel safe in your current relationship?: No Current Relationship Is there a partner from a previous relationship who is making you feel unsafe now?: No Are you made to feel afraid or neglected: No Are you DNR?: No Advance Directives: No Advance Directives Information Provided: No Advance Directives on File: No Do you have a plan to hurt others: No Plan Recently lost weight without trying: No Nutrition Risks: No Nutritional Risk Patient : No : No Poor oral hygiene: No service: No Meds Allergies Allergy/AdvReac Type Severity Reaction Status Date / Time Omuujok-UTK-DsO Reductase Allergy Severe SEVERE Verified 03/10/25 14:40 Inhibitor (PCUIYEI-LCD-UTV DIARRHEA REDUCTASE INHIBITOR) Home Medications ?Medication ?Instructions ?Recorded ?Confirmed ?Last Taken ?Type cholecalciferol (vitamin D3) 50 50 mcg PO BEDTIME 09/06/21 03/10/25 03/09/25 History mcg (2,000 unit) tablet gemfibrozil 600 mg tablet 600 mg PO BID 09/06/21 03/10/25 03/10/25 History glipizide 10 mg tablet 20 mg PO BID 09/06/21 03/10/25 03/10/25 History insulin glargine 100 unit/mL (3 35 unit subcut BEDTIME 09/06/21 03/10/25 Unknown History mL) subcutaneous pen (Lantus Solostar U-100 Insulin) lisinopril 10 mg tablet 10 mg PO BEDTIME 09/06/21 03/10/25 03/09/25 History loratadine 10 mg tablet 10 mg PO BEDTIME 09/06/21 03/10/25 03/09/25 History metformin 1,000 mg tablet 1,000 mg PO BID 09/06/21 03/10/25 03/10/25 History omega-3 acid ethyl esters 1 gram 1 cap PO DAILY 09/06/21 03/10/25 03/10/25 History capsule sertraline 25 mg tablet 25 mg PO DAILY 09/06/21 03/10/25 03/10/25 History triamterene 37.5 1 cap PO DAILY 09/06/21 03/10/25 03/10/25 History mg-hydrochlorothiazide 25 mg capsule aspirin 81 mg chewable tablet 81 mg PO BEDTIME 07/17/22 03/10/25 03/09/25 History dapagliflozin propanediol 10 mg 10 mg PO DAILY 03/10/25 03/10/25 03/10/25 History tablet (Farxiga) furosemide 20 mg tablet 20 mg PO DAILY 03/10/25 03/10/25 03/10/25 History tirzepatide 2.5 mg/0.5 mL 2.5 mg subcut GATES 03/10/25 03/10/25 03/08/25 History subcutaneous pen injector (Jennifer) Exam Exam Date and Time: 03/11/25 1143 Airway Mallampati Class: III TM Dist: <=3cm Neck ROM: Full Partial: Upper Heart: S1S2 Assessment and Plan Assessment Anesthesia Assessment: Anesthesia Plan Discussed and Chart Reviewed Final Anesthetic Review Family History of Problems with Anesthesia: No History of Problems with Anesthesia: No NPO: Yes ASA Class: III and Emergency Final Preanesthetic Review: No Changes in Pt Med Stat, Meds/Allgs Chart Reviewed, Consent Obtained/Reviewed and Anes Risks/Benef Reviewed Patient Risk: Intermediate Procedure Risk: Low Anesthetic Plan Anesthetic Plan: GA (plan for GA with ETT due to suspected delayed gastric emptying) and Agree w/ Assess. and Plan Disposition: Standard PACU
--- NOTE | 2025-03-11 11:53 | PC.NURSE ---
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
--- NOTE | 2025-03-11 12:05 | PC.NURSE ---
Addendum entered by Leandro Craft RN 03/11/25 12:21: recheck POC after 15min 152. Dr. Carlos notified. Original Note: Patient c/o lightheadedness, dizziness and feeling really hot . POC checked 41. Dr. Carlos anesthesia at bedside. orders received for D50 administered.
[2025-03-11 12:27] LABS: Glucose, Whole Blood 41 mg/dL (60-115)
[2025-03-11 12:27] LABS: Glucose, Whole Blood 152 mg/dL (60-115)
--- NOTE | 2025-03-11 13:33 | W.PM.OPN ---
Operative Note Operative Note Date of Service: 03/11/25 Narrative: Procedure Description: EGD Indication: Post prandial abdominal pain Anesthesia: GA FLEXIBLE TRANSORAL UPPER GASTROINTESTINAL ENDOSCOPY UPPER ENDOSCOPY Consent: Indications for the procedure and potential complications of bleeding, perforation, reaction to medications and missed diagnosis were discussed with the patient and informed consent was obtained. Instrument: Olympus GIF H 190 J mid size upper endoscope Monitoring: Vital signs and clinical assessment, continuous EKG monitoring, Pulse oximetry, Carbon Dioxide monitoring and blood pressure monitoring were done throughout the procedure. Procedure: The patient was placed in the left lateral decubitis position and pre-procedure medications were administered and a bite block was placed. The endoscope was inserted into the mouth and advanced under direct vision to the third part of duodenum. A careful inspection was made as the upper endoscope was withdrawn including a retroflexed examination of the proximal stomach; Findings and interventions are described below. Findings: Larynx:normal Esophagus: GE junction at 40 cm, diaphragm hiatus at 40 cm, boggy, edematous mucosa at GEJ with friability, and streaky erosions noted, bx taken --schatzki ring noted Stomach: erosive gastritis at antrum with small ulcer noted 4-5 mm . Biopsies were obtained. Grade 2 flap valve on retroflexed examination of the cardia. Duodenum: Patchy erythema and granular mucosa consistent with peptic injury, bx taken Intervention: Biopsies as noted above, Impression/Findings: erosive gastritis and small ulcer duodenitis erosive esophagitis schatzki ring PLAN: pantoprazole 40 mg BID for 3 months then titrate down GERD precautions can add carafate for 2 weeks avoid nsaids if h pylori pos then treat
[2025-03-11] MEDS: Glucose Gel 15 GM GEL..GRAM. PO (14:30)
--- NOTE | 2025-03-11 14:59 | PM.EVENT ---
Event Note Date of Service: 03/11/25 Event Note: Patient seen and examined at bedside this morning, patient admitted for abdominal pain, found to have GALEN on CKD. Patient states abdominal pain has improved, denies any complaints at this time. Time Spent With Patient Time: Total time managing care of this patient today ____ minutes.
[2025-03-11 15:31] LABS: Glucose, Whole Blood 85 mg/dL (60-115)
[2025-03-11 15:31] LABS: Glucose, Whole Blood 43 mg/dL (60-115)
[2025-03-11 15:31] LABS: Glucose, Whole Blood 47 mg/dL (60-115)
[2025-03-11 15:31] LABS: Glucose, Whole Blood 74 mg/dL (60-115)
[2025-03-11 15:31] LABS: Glucose, Whole Blood 71 mg/dL (60-115)
[2025-03-11 16:06] LABS: Glucose, Whole Blood 97 mg/dL (60-115)
[2025-03-11] MEDS: Dextrose 5 % and Lactated Ring 1,000 ML 125 ML IVCONT (16:12)
[2025-03-11] MEDS: 0.9 % Sodium Chloride Flush 3 ML SYRINGE IVFLUSH (16:15)
[2025-03-11 16:42] LABS: Glucose, Whole Blood 62 mg/dL (60-115)
[2025-03-11 19:31] LABS: Glucose, Whole Blood 173 mg/dL (60-115)
[2025-03-11 23:49] LABS: Glucose, Whole Blood 181 mg/dL (60-115)
[2025-03-12] VITALS (7 sets, daily range): BP systolic 110–137; BP diastolic 59–68; PULSE 69–83; RESP 18–20; TEMP 36.2–37.1; O2SAT 91–97
[2025-03-12] MEDS: Dextrose 5 % and Lactated Ring 1,000 ML 125 ML IVCONT ×3 (00:26→20:51)
[2025-03-12 04:40] LABS: Glucose, Whole Blood 180 mg/dL (60-115)
[2025-03-12 07:30] LABS: Glucose, Whole Blood 160 mg/dL (60-115)
[2025-03-12 11:19] LABS: Glucose, Whole Blood 217 mg/dL (60-115)
--- NOTE | 2025-03-12 13:01 | HO.PM.IMPN ---
Subjective Subjective Date of Service: 03/12/25 Interval History: Patient seen examined at bedside this morning, patient states that her abdominal pain has improved, had EGD done yesterday, showing erosive gastritis with ulcer, suggested on placing patient on Protonix 40 mg b.i.d. as well as the Carafate for 2 weeks. Review of Systems Review of Systems: Yes all other systems are reviewed and are negative Physical Exam Exam: Exam: General: AxOx3, No acute distress Head: AT/NC ENT: Moist mucous membranes Neck: supple CVS; RRR, S1 S2 normal Lungs: Clear bilateral breath sounds, no wheezes or crackles Abd: Soft non tender, non distended Ext: No edema and no calf tenderness MSK: moving all 4 limbs Skin: No cyanosis or edema Psych: Cooperative with exam Neurology: no focal deficit Vital Signs: Vital Signs: Last Vital Signs Temp 97.6 F 03/12/25 11:05 Pulse 80 03/12/25 11:05 Resp 20 03/12/25 11:05 BP 110/68 03/12/25 11:05 Pulse Ox 96 03/12/25 11:05 O2 Del Method Room Air 03/12/25 11:05 O2 Flow Rate 2 03/11/25 16:00 BMI result Body Mass Index 39.2 Objective Data Active Medications Acetaminophen (Acetaminophen 325 Mg Tablet) 650 mg PO Q6H PRN PRN Reason: Pain, Mild 1-3,fever,headache Aspirin (Aspirin 81 Mg Tab.Chew) 81 mg PO BEDTIME [facility] Last Admin: 03/11/25 21:06 Dose: 81 mg Documented By: TORSTEN Benzonatate (Benzonatate 100 Mg Capsule) 100 mg PO TID PRN PRN Reason: Cough Last Admin: 03/11/25 21:33 Dose: 100 mg Documented By: TORSTEN Calcium Carbonate (Calcium Carbonate 750 Mg Tab.Chew) 750 mg PO Q4H PRN PRN Reason: Heartburn Dextrose (Dextrose 50 % 25 Gm/50 Ml Syringe) 25 gm IVPUSH Q15M PRN; Protocol PRN Reason: per Hypoglycemia Standing Ord. Last Admin: 03/11/25 12:05 Dose: 25 gm Documented By: YVETTE Docusate Sodium (Docusate Sodium 100 Mg Capsule) 100 mg PO BEDTIME [facility] Last Admin: 03/11/25 21:06 Dose: 100 mg Documented By: TORSTEN Empagliflozin (Empagliflozin 10 Mg Tablet) 10 mg PO DAILY [facility] Last Admin: 03/12/25 08:14 Dose: 10 mg Documented By: LYNETTE Furosemide (Furosemide 20 Mg Tablet) 20 mg PO DAILY [facility]; Protocol On Hold: 03/12/25 12:59 Resume: 03/14/25 21:00 Last Admin: 03/12/25 08:14 Dose: 20 mg Documented By: LYNETTE Glucose (Glucose Gel 15 Gm Gel..Gram.) 15 gm PO Q15M PRN; Protocol PRN Reason: per Hypoglycemia Standing Ord. Last Admin: 03/11/25 14:30 Dose: 15 gm Documented By: RADHA Heparin Sodium (Porcine) (Heparin Sodium,Porcine 5,000 Unit/Ml Vial) 5,000 unit SUBCUT Q8H [facility] Last Admin: 03/12/25 05:14 Dose: 5,000 unit Documented By: TORSTEN Hydromorphone HCl (Hydromorphone Hcl 1 Mg/Ml Syringe) 0.5 mg IVPUSH Q4H PRN; Protocol PRN Reason: Breakthrough Pain Dextrose/Lactated Ringer's (D5lr) 1,000 mls @ 125 mls/hr IVCONT .Q8H [facility] Last Admin: 03/12/25 08:14 Dose: 125 mls/hr Documented By: LYNETTE Ceftriaxone Sodium 1 gm/ (Sodium Chloride) 50 mls @ 100 mls/hr IV BEDTIME [facility] Last Infusion: 03/11/25 21:35 Dose: Infused Documented By: TORSTEN Lactated Ringer's (Lr) 1,000 mls @ 80 mls/hr IVCONT .[id number] [facility] Last Admin: 03/12/25 01:25 Dose: Not Given Documented By: TORSTEN Non-Admin Reason: Duplicate Order Insulin Glargine (Insulin Glargine,Hum.Rec.Anlog 100 Unit/Ml 10 Ml Vial) 35 unit SUBCUT BEDTIME [facility] On Hold: 03/11/25 21:00 Lisinopril (Lisinopril 10 Mg Tablet) 10 mg PO BEDTIME [facility]; Protocol On Hold: 03/12/25 12:58 Resume: 03/14/25 09:00 Last Admin: 03/11/25 21:06 Dose: 10 mg Documented By: TORSTEN Magnesium Hydroxide (Milk Of Magnesia 30 Ml Oral.Susp) 30 ml PO DAILY PRN PRN Reason: Constipation Melatonin (Melatonin 3 Mg Tablet) 6 mg PO BEDTIME PRN PRN Reason: Insomnia Non-Formulary Medication ([place]-3 Acid Ethyl Esters) 1 cap PO DAILY [facility] Pantoprazole Sodium (Pantoprazole Sodium 40 Mg/10 Ml Vial) 40 mg IVPUSH BID@0630,1630 [facility] Last Admin: 03/12/25 05:15 Dose: 40 mg Documented By: TORSTEN Sertraline HCl (Sertraline Hcl 25 Mg Tablet) 25 mg PO DAILY [facility] Last Admin: 03/12/25 08:14 Dose: 25 mg Documented By: LYNETTE Sodium Chloride (0.9 % Sodium Chloride Flush 3 Ml Syringe) 3 ml IVFLUSH QSHIFT [facility] Last Admin: 03/12/25 08:17 Dose: Not Given Documented By: LYNETTE Non-Admin Reason: IV Running Triamterene/Hydrochlorothiazide (Triamterene/Hctz 37.5/25 Tablet) 1 tab PO DAILY [facility]; Protocol On Hold: 03/12/25 12:59 Resume: 03/14/25 21:00 Last Admin: 03/12/25 08:14 Dose: 1 tab Documented By: LYNETTE Vitamin D (Cholecalciferol (Vitamin D3) 25 Mcg Tablet) 50 mcg PO BEDTIME [facility] Last Admin: 03/11/25 21:06 Dose: 50 mcg Documented By: TORSTEN Labs 03/11/25 04:54 03/11/25 04:54 Labs: Laboratory Results - last 24 hr 03/10/25 03/11/25 03/11/25 18:45 14:10 14:26 POC Glucose 62 43 L* 47 L* 03/11/25 03/11/25 03/11/25 14:47 15:01 15:17 POC Glucose 71 74 85 03/11/25 03/11/25 03/11/25 15:57 19:26 23:46 POC Glucose 97 173 H 181 H 03/12/25 03/12/25 03/12/25 04:36 07:26 11:15 POC Glucose 180 H 160 H 217 H Microbiology Microbiology Results: Microbiology 03/10/25 Unknown Urine Culture - Final Urine clean catch - Clean Catch Midstream Lactobacillus species 03/11/25 05:56 Blood Culture - Preliminary Blood - Venous No growth after 24 hours. 03/11/25 05:47 Blood Culture - Preliminary Blood - Venous No growth after 24 hours. Assessment and Plan (1) Erosive gastritis: Status: Acute (2) Hypoglycemia: Status: Acute (3) GALEN (acute kidney injury): Status: Acute (4) Diabetes: Status: Acute Plan 79-year-old female with a past medical history of obesity, VIRI, arthritis, diabetes, CKD, hypertension; presented to the hospital today with a chief complaint of abdominal pain. Had EGD done on 03/11 findings erosive gastritis with ulcer. Erosive gastritis with ulcer seen on EGD Concern for possible peptic ulcer disease given NSAIDs use continue w/ protonix BID x 3 weeks and sucralfate x 2 weeks follow up as outpatient with GI Clear liquid diet and advance as tolerated avoid NSAIDs H/ pylori testing sent. will treat if positive GALEN on CKD: Baseline creatinine around 1.4 Creatinine at this time 2.1 Patient also has recent NSAIDs use and decreased oral intake-likely contributing continue D5LR, labs ordered Hold home lisinopril Hypoglycemia: Likely in setting of poor intake. Patient has persistent hypoglycemia in the ER-improving on IV fluids-D5 LR Hold home insulin regimen. glipizide discontinued Hypertension: Hold lisinopril and lasix in setting of GALEN UTI: Continue ceftriaxone. Follow up cultures Depression: Continue home sertraline Total time managing care of this patient today: 35 minutes. Quality Stroke Does the patient have a stroke diagnosis?: No VTE Prior VTE?: No VTE Risk Level:: Medical - moderate - high VTE Device Contraindication: Treatment Not Indicated VTE Drug Contraindication: N/A - Med Ordered
[2025-03-12 14:32] LABS: Anion Gap 13 (12-20); Blood Urea Nitrogen 41 mg/dL (9-16); Calcium 10.2 mg/dL (8.4-10.2); Carbon Dioxide 26 mmol/L (22-29); Chloride 103 mmol/L (96-108); Creatinine Clr Calc Pharmacy 27.5; Estimated Glomerular Filt Rate 28; Potassium 4.1 mmol/L (3.3-5.1); Sodium 138 mmol/L (135-145)
[2025-03-12 16:14] LABS: Glucose, Whole Blood 199 mg/dL (60-115)
[2025-03-12 23:24] LABS: Glucose, Whole Blood 175 mg/dL (60-115)
[2025-03-13] VITALS (7 sets, daily range): BP systolic 116–151; BP diastolic 67–75; PULSE 72–88; RESP 18–20; TEMP 36.3–37.1; O2SAT 93–97
[2025-03-13] MEDS: Dextrose 5 % and Lactated Ring 1,000 ML 125 ML IVCONT (06:24)
[2025-03-13 06:44] LABS: Anion Gap 12 (12-20); Blood Urea Nitrogen 32 mg/dL (9-16); Calcium 10.3 mg/dL (8.4-10.2); Carbon Dioxide 30 mmol/L (22-29); Chloride 104 mmol/L (96-108); Creatinine Clr Calc Pharmacy 29.1; Estimated Glomerular Filt Rate 30; Potassium 4.2 mmol/L (3.3-5.1); Sodium 142 mmol/L (135-145)
[2025-03-13 08:55] LABS: Glucose, Whole Blood 262 mg/dL (60-115)
[2025-03-13 09:38] LABS: Cholesterol 188 mg/dL (<200); HDL Cholesterol 19 mg/dL (>40); Triglycerides 388 mg/dL (<150)
--- NOTE | 2025-03-13 13:14 | P.CDIM_ITS ---
PROVIDER RESPONSE TEXT: To clarify, the appropriate diagnosis supported by the clinical indicators: CKD, stage 3 QUERY TEXT: PHYSICIAN'S DOCUMENTATION REQUEST Date of Query: 03/13/2025 12:53 PM EST Patient Name: Yuliet Underwood Admit Date: 03/11/2025 Dear Wili Boyer MD, A review of the medical record indicates additional documentation may be needed. Please review below and update the documentation accordingly. Clinical Indicators: creatinine 1.64, 2.1 baseline creatinine 1.4 eGFR 30.0 dx GALEN on CKD Please clarify which of the following accurately represents the patient's renal status: CKD, stage 1 CKD, stage 2 CKD, stage 3 CKD, stage 4 Other (explain) Clinically unable to determine (explain) Thank you, Lauren Perrin RN Use of terms such as suspected, likely, concern for, or probable (associated with a specific diagnosis that is being evaluated, monitored, or treated as if it exists) are acceptable and can be coded in the inpatient setting, when documented at the time of discharge. Please use your independent medical judgment in providing your response. THIS QUERY IS PART OF THE PERMANENT MEDICAL RECORD
--- NOTE | 2025-03-13 14:06 | MHC.CM.PN ---
EMR REVIEWED AND PER MD ROUNDS, PATIENT IS NOT MEDICALLY CLEARED FOR DISCHARGE DUE TO MANAGEMENT OF EROSIVE GASTRITIS WITH ULCER.
[2025-03-13 15:44] LABS: Glucose, Whole Blood 196 mg/dL (60-115)
--- NOTE | 2025-03-13 16:04 | P.PNIM_ITS ---
Subjective Subjective Date of Service: 03/13/25 Interval History: Patient seen examined at bedside this morning, patient's creatinine now at baseline, at this time states that she is feeling better, however persists with inability to tolerate regular diet. Review of Systems Review of Systems: Yes all other systems are reviewed and are negative Physical Exam 2 Exam: Exam: General: AxOx3, mild abdominal discomfort Head: AT/NC ENT: Moist mucous membranes Neck: supple CVS; RRR, S1 S2 normal Lungs: Clear bilateral breath sounds, no wheezes or crackles Abd: Soft non tender, non distended Ext: No edema and no calf tenderness MSK: moving all 4 limbs Skin: No cyanosis or edema Psych: Cooperative with exam Neurology: no focal deficit Vital Signs: Vital Signs: Last Vital Signs Temp 98.2 F 03/13/25 15:49 Pulse 88 03/13/25 15:49 Resp 18 03/13/25 15:49 BP 116/73 03/13/25 15:49 Pulse Ox 95 03/13/25 15:49 O2 Del Method Room Air 03/13/25 15:49 O2 Flow Rate 2 03/11/25 16:00 BMI result Body Mass Index 39.2 Objective Data Active Medications Acetaminophen (Acetaminophen 325 Mg Tablet) 650 mg PO Q6H PRN PRN Reason: Pain, Mild 1-3,fever,headache Last Admin: 03/13/25 03:35 Dose: 650 mg Documented By: VITALY Aspirin (Aspirin 81 Mg Tab.Chew) 81 mg PO BEDTIME [facility] Last Admin: 03/12/25 20:54 Dose: 81 mg Documented By: VITALY Benzonatate (Benzonatate 100 Mg Capsule) 100 mg PO TID PRN PRN Reason: Cough Last Admin: 03/13/25 08:25 Dose: 100 mg Documented By: ALONZO Calcium Carbonate (Calcium Carbonate 750 Mg Tab.Chew) 750 mg PO Q4H PRN PRN Reason: Heartburn Dextrose (Dextrose 50 % 25 Gm/50 Ml Syringe) 25 gm IVPUSH Q15M PRN; Protocol PRN Reason: per Hypoglycemia Standing Ord. Last Admin: 03/11/25 12:05 Dose: 25 gm Documented By: YVETTE Docusate Sodium (Docusate Sodium 100 Mg Capsule) 100 mg PO BEDTIME [facility] Last Admin: 03/12/25 20:53 Dose: 100 mg Documented By: VITALY Empagliflozin (Empagliflozin 10 Mg Tablet) 10 mg PO DAILY [facility] Last Admin: 03/13/25 08:25 Dose: 10 mg Documented By: ALONZO Furosemide (Furosemide 20 Mg Tablet) 20 mg PO DAILY [facility]; Protocol Last Admin: 03/13/25 08:25 Dose: 20 mg Documented By: ALONZO Glucose (Glucose Gel 15 Gm Gel..Gram.) 15 gm PO Q15M PRN; Protocol PRN Reason: per Hypoglycemia Standing Ord. Last Admin: 03/11/25 14:30 Dose: 15 gm Documented By: RADHA Heparin Sodium (Porcine) (Heparin Sodium,Porcine 5,000 Unit/Ml Vial) 5,000 unit SUBCUT Q8H [facility] Last Admin: 03/13/25 15:12 Dose: 5,000 unit Documented By: ALONZO Hydromorphone HCl (Hydromorphone Hcl 1 Mg/Ml Syringe) 0.5 mg IVPUSH Q4H PRN; Protocol PRN Reason: Breakthrough Pain Insulin Glargine (Insulin Glargine,Hum.Rec.Anlog 100 Unit/Ml 10 Ml Vial) 35 unit SUBCUT BEDTIME [facility] On Hold: 03/11/25 21:00 Lisinopril (Lisinopril 10 Mg Tablet) 10 mg PO BEDTIME [facility]; Protocol Last Admin: 03/11/25 21:06 Dose: 10 mg Documented By: TORSTEN Magnesium Hydroxide (Milk Of Magnesia 30 Ml Oral.Susp) 30 ml PO DAILY PRN PRN Reason: Constipation Melatonin (Melatonin 3 Mg Tablet) 6 mg PO BEDTIME PRN PRN Reason: Insomnia Pantoprazole Sodium (Pantoprazole Sodium 40 Mg/10 Ml Vial) 40 mg IVPUSH BID@0630,1630 [facility] Last Admin: 03/13/25 06:09 Dose: 40 mg Documented By: VITALY Sertraline HCl (Sertraline Hcl 25 Mg Tablet) 25 mg PO DAILY [facility] Last Admin: 03/13/25 08:25 Dose: 25 mg Documented By: ALONZO Sodium Chloride (0.9 % Sodium Chloride Flush 3 Ml Syringe) 3 ml IVFLUSH QSHIFT [facility] Last Admin: 03/13/25 08:28 Dose: Not Given Documented By: ALONZO Non-Admin Reason: IV Running Triamterene/Hydrochlorothiazide (Triamterene/Hctz 37.5/25 Tablet) 1 tab PO DAILY [facility]; Protocol On Hold: 03/12/25 12:59 Resume: 03/14/25 21:00 Last Admin: 03/12/25 08:14 Dose: 1 tab Documented By: LYNETTE Vitamin D (Cholecalciferol (Vitamin D3) 25 Mcg Tablet) 50 mcg PO BEDTIME [facility] Last Admin: 03/12/25 20:58 Dose: 50 mcg Documented By: VITALY Labs 03/11/25 04:54 03/13/25 05:54 Labs: Laboratory Results - last 24 hr 03/12/25 03/12/25 03/13/25 16:11 23:22 05:54 Hold Purple Top SEE NOTE Anion Gap 12 Estim Creat Clear Calc 29.1 Estimated GFR 30 POC Glucose 199 H 175 H Random Glucose 160 H Calcium 10.3 H Triglycerides Cholesterol LDL Cholesterol, Calc HDL Cholesterol 03/13/25 03/13/25 03/13/25 08:29 08:51 15:34 Hold Purple Top SEE NOTE Anion Gap Estim Creat Clear Calc Estimated GFR POC Glucose 262 H 196 H Random Glucose Calcium Triglycerides 388 H Cholesterol 188 LDL Cholesterol, Calc 92 HDL Cholesterol 19 L Microbiology Microbiology Results: Microbiology 03/11/25 05:56 Blood Culture - Preliminary Blood - Venous No growth after 48 hours. 03/11/25 05:47 Blood Culture - Preliminary Blood - Venous No growth after 48 hours. 03/10/25 Unknown Urine Culture - Final Urine clean catch - Clean Catch Midstream Lactobacillus species Assessment and Plan (1) Diabetes: Status: Acute (2) GALEN (acute kidney injury): Status: Acute (3) Hyperlipidemia associated with type 2 diabetes mellitus: Status: Acute (4) Erosive gastritis: Status: Acute Plan 79-year-old female with a past medical history of obesity, VIRI, arthritis, diabetes, CKD, hypertension; presented to the hospital today with a chief complaint of abdominal pain. Had EGD done on 03/11 findings erosive gastritis with ulcer. Erosive gastritis with ulcer seen on EGD Concern for possible peptic ulcer disease given NSAIDs use continue w/ protonix BID x 3 weeks and sucralfate x 2 weeks follow up as outpatient with GI Clear liquid diet and advance as tolerated avoid NSAIDs H/ pylori testing sent. will treat if positive GALEN on CKD, improving Baseline creatinine around 1.4 Creatinine at this time 2.1 improved to 1.6 Patient also has recent NSAIDs use and decreased oral intake-likely contributing T2DM Hypoglycemia, resolved Likely in setting of poor intake. Patient has persistent hypoglycemia in the ER Hold home insulin regimen. glipizide discontinued counseling given on following up with Endocrinology as outpatient Hyperlipidemia w/ underlying T2DM improving, Total cholesterol 188, HDL 19, LDL 92, triglycerides 388, will initiate atorvastatin 20mg and zetia 10mg, on d/c to switch to rosuvastatin, avoid combination of gemfibrozil and statins Hypertension: will continue lisinopril and lasix, triamterene on hold UTI, ruled out based on cultures, will d/c ceftriaxone. Depression: Continue home sertraline Total time managing care of this patient today: 55 minutes. Quality Stroke Does the patient have a stroke diagnosis?: No VTE Prior VTE?: No VTE Risk Level:: Medical - moderate - high VTE Device Contraindication: Treatment Not Indicated VTE Drug Contraindication: N/A - Med Ordered
[2025-03-13] MEDS: 0.9 % Sodium Chloride Flush 3 ML SYRINGE IVFLUSH ×2 (18:32→23:15)
[2025-03-13 20:05] LABS: Glucose, Whole Blood 256 mg/dL (60-115)
[2025-03-14 03:25] VITALS: BP 137/64; PULSE 68; RESP 18; TEMP 36.5; O2SAT 93
[2025-03-14 07:41] VITALS: BP 117/56; PULSE 70; RESP 16; TEMP 36.7; O2SAT 94
[2025-03-14 07:48] LABS: Glucose, Whole Blood 157 mg/dL (60-115)
[2025-03-14 08:02] LABS: Anion Gap 15 (12-20); Blood Urea Nitrogen 29 mg/dL (9-16); Calcium 10.3 mg/dL (8.4-10.2); Carbon Dioxide 28 mmol/L (22-29); Chloride 101 mmol/L (96-108); Creatinine Clr Calc Pharmacy 32.6; Estimated Glomerular Filt Rate 35; Potassium 3.8 mmol/L (3.3-5.1); Sodium 140 mmol/L (135-145)
[2025-03-14] MEDS: 0.9 % Sodium Chloride Flush 3 ML SYRINGE IVFLUSH (09:12)
[2025-03-14] MEDS: Milk of Magnesia 30 ML ORAL.SUSP PO (09:24)
[2025-03-14 11:29] VITALS: BP 116/56; PULSE 76; RESP 20; TEMP 36.9; O2SAT 94
[2025-03-14 11:55] LABS: Glucose, Whole Blood 261 mg/dL (60-115)
--- NOTE | 2025-03-14 13:00 | P.DS_ITS ---
DS: Providers Provider Date of Service: 03/14/25 Date of admission: 03/10/25 19:42 Date of discharge: 03/14/25 Primary care physician: Daiana Trevino MD Consults: 03/10/25 19:44 Consult to Gastroenterology Routine Consulting [place] [facility] [facility] Reason for consultation: postprandial abd pain; ?PUD; ?EGD; poor intake Attending physician on discharge: Wili Boyer Discharging clinician: Wili Boyer DS: Diagnosis Discharge Diagnosis (1) Diabetes: Status: Acute (2) GALEN (acute kidney injury): Status: Acute (3) Hyperlipidemia associated with type 2 diabetes mellitus: Status: Acute (4) Erosive gastritis: Status: Acute DS: Summary Hospital Course Hospital Course: 79-year-old female with a past medical history of obesity, VIRI, arthritis, diabetes, CKD, hypertension; presented to the hospital today with a chief complaint of abdominal pain. Had EGD done on 03/11 findings erosive gastritis with ulcer. Patient with decreased lipid levels, no episodes of hypoglycemia, patient discharged on 03/14 in stable condition. Erosive gastritis with ulcer seen on EGD Concern for possible peptic ulcer disease given NSAIDs use continue w/ protonix BID x 3 months and sucralfate x 2 weeks follow up as outpatient with GI diabetic diet avoid NSAIDs H/ pylori testing sent. will treat if positive GALEN on CKD, resolved Baseline creatinine around 1.4 Creatinine on discharge 1.4 advised on avoiding NSAIDs, take tylenol as needed T2DM no longer having episodes of hypoglycemia Patient has persistent hypoglycemia in the ER continue home medications, glipizide discontinued counseling given on following up with Endocrinology as outpatient Hyperlipidemia w/ underlying T2DM improving, Total cholesterol 188, HDL 19, LDL 92, triglycerides 388, placed on atorvastatin 20mg and zetia 10mg, will transition switch to rosuvastatin, avoid combination of gemfibrozil and statins Hypertension: will continue lisinopril and lasix, triamterene on hold given BP Depression: Continue home sertraline All new and continued medications were discussed in depth with the patient, and new prescriptions were given directly to patient and/or verification of the prescriptions were sent to patient's preferred pharmacy directly. All side effects were discussed. Follow-up instructions were given. Patient voiced understanding. Patient was given the opportunity ask questions and express concerns, all of which were answered to their satisfaction. Patient was instructed to follow-up with her PCP within 3 to 10 days of discharge and head to the nearest emergency room or call 911 if symptoms worsen or new symptoms develop. This is a summary of the patient's stay; for more complete details please see chart. More than 35 minutes was spent with patient regarding workup, diagnosis and follow-up. Time Attestation Discharge Coordination Time (in mins): 35 minutes Quality: Safe Use of Opioids Does Pt have an Active Cancer Diagnosis on the Problem List?: No Quality: Stroke Does the patient have a stroke diagnosis?: No Physical Exam Exam: Exam: General: AxOx3, No acute distress Head: AT/NC ENT: Moist mucous membranes Neck: supple CVS; RRR, S1 S2 normal Lungs: Clear bilateral breath sounds, no wheezes or crackles Abd: Soft non tender, non distended Ext: No edema and no calf tenderness MSK: moving all 4 limbs Skin: No cyanosis or edema Psych: Cooperative with exam Neurology: no focal deficit Vital Signs: Vital Signs: Last Vital Signs Temp 98.4 F 03/14/25 11:29 Pulse 76 03/14/25 11:29 Resp 20 03/14/25 11:29 BP 116/56 L 03/14/25 11:29 Pulse Ox 94 03/14/25 11:29 O2 Del Method Room Air 03/14/25 11:29 O2 Flow Rate 2 03/11/25 16:00 BMI result Body Mass Index 39.2 DS: Data Data Completed and Pending Pending studies at discharge: Pending at discharge 03/11/25 13:39 Surgical [PTH] Routine Labs on day of discharge: Laboratory Results - last 24 hr 03/13/25 03/13/25 03/14/25 15:34 19:59 07:15 Sodium 140 Potassium 3.8 Chloride 101 Carbon Dioxide 28 Anion Gap 15 BUN 29 H Creatinine 1.46 H Estim Creat Clear Calc 32.6 Estimated GFR 35 POC Glucose 196 H 256 H Random Glucose 143 H Calcium 10.3 H 03/14/25 03/14/25 07:39 11:33 Sodium Potassium Chloride Carbon Dioxide Anion Gap BUN Creatinine Estim Creat Clear Calc Estimated GFR POC Glucose 157 H 261 H Random Glucose Calcium Preliminary micro results at discharge 03/11/25 05:56 Blood Culture - Preliminary Blood - Venous No growth after 48 hours. 03/11/25 05:47 Blood Culture - Preliminary Blood - Venous No growth after 48 hours. Discharge Plan Discharge Anticipated Discharge Date/Time: 03/14/25 14:45 Patient Disposition: Home, Self-Care Discharge Diagnosis: Erosive gastritis GALEN on CKD T2DM Hyperlipidemia Referrals: Daiana Trevino MD [Primary Care Provider, Internal Medicine] - 1 Week Karla Ceron MD [Physician, Gastroenterology] - 2 Weeks Discharge Medications: New ezetimibe 10 mg Tablet 10 mg PO DAILY 30 Days Qty: 30 0RF rosuvastatin [Crestor] 20 mg tablet 20 mg PO DAILY Qty: 30 0RF metformin [Glucophage XR] 500 mg tablet extended release 24 hr 500 mg PO BID Qty: 60 0RF pantoprazole [Protonix] 40 mg tablet,delayed release (DR/EC) 40 mg PO BID 90 Days Qty: 180 0RF sucralfate [Carafate] 1 gram tablet 1 g PO BID 14 Days Qty: 28 0RF Continued docusate sodium 100 mg capsule 100 mg PO BEDTIME Qty: 30 3RF furosemide 20 mg tablet 20 mg PO DAILY dapagliflozin propanediol [Farxiga] 10 mg tablet 10 mg PO DAILY Mounjaro 2.5 mg/0.5 mL pen injector 2.5 mg subcut GATES cholecalciferol (vitamin D3) 50 mcg (2,000 unit) tablet 50 mcg PO BEDTIME omega-3 acid ethyl esters 1 gram capsule 1 cap PO DAILY loratadine 10 mg tablet 10 mg PO BEDTIME sertraline 25 mg tablet 25 mg PO DAILY lisinopril 10 mg tablet 10 mg PO BEDTIME Lantus Solostar U-100 Insulin 100 unit/mL (3 mL) insulin pen 35 unit subcut BEDTIME aspirin 81 mg tablet,chewable 81 mg PO BEDTIME Discontinued gemfibrozil 600 mg tablet 600 mg PO BID glipizide 10 mg tablet 20 mg PO BID metformin 1,000 mg tablet 1,000 mg PO BID No Action triamterene-hydrochlorothiazid 37.5-25 mg capsule 1 cap PO DAILY Discharge Orders: Discharge Order (Routine); Ordered 03/14/25 Ordered By: Wili Boyer Activity on Discharge: As tolerated Stand Alone Forms: Patient Portal Discharge page Print Language: [place] Care Plan Goals: Continue with sucralfate and protonix for erosive gastritis Avoid Ibuprofin.motrin follow up with Gastroenterology as outpatient Initiated rosuvastatin and ezetimibe to decrease cholesterol discontinued glipizide secondary to low glucose, initiate long acting metformin at lower dose Health Concerns: peptic ulcer disease, type 2 diabetes and hyperlipidemia Plan of Treatment: Continue sucralfate for two weeks, while also taking protonix 40mg twice a day for 3 weeks follow up with Gastroenterology as outpatient Discontinued glipizide and decreased metformin dose due to low blood sugars, continue to monitor, use blood glucose meter and record values to take to PCP, if needed to consider endocrinology consult initiated rosuvastatin and zetia, gemfibrozil discontinued. Assessment: 79-year-old female with a past medical history of obesity, VIRI, arthritis, diabetes, CKD, hypertension; presented to the hospital today with a chief complaint of abdominal pain. Had EGD done on 03/11 findings erosive gastritis with ulcer. Patient with decreased lipid levels, no episodes of hypoglycemia Patient Instructions: Gastritis (DC), Hypoglycemia in a Person with Diabetes (DC), Diabetes and Exercise (DC)
--- NOTE | 2025-03-14 13:13 | MHC.CM.PN ---
PT CLEARED TO DC HOME TODAY WITH NO SERVICES PT TO ARRANGE TRANSPORT
== END 2025-03-14 15:55 | disposition home or self-care (01) | DRG 392 ==
LOC: HO.ED 17:19 → HO.EDOVER 19:45 → HO.SSSA 03-11 12:40 → HO.IMC 03-11 15:11
PROVIDERS: Internal Medicine Gastroenterology; Admitting Provider Hospitalist; Emergency Provider Emergency Medicine; PCP Student in an Organized Health Care Education/Training Program; Visit Provider Student in an Organized Health Care Education/Training Program
PROC: 0DJ08ZZ Inspection of Upper Intestinal Tract, Via Natural or Artificial Opening Endoscopic (ICD-10-PCS; CPT 43235; principal; 2025-03-11 13:40)
DX: K29.70 Gastritis, unspecified, without bleeding (principal); E87.1 Hypo-osmolality and hyponatremia; N17.9 Acute kidney failure, unspecified; E11.649 Type 2 diabetes mellitus with hypoglycemia without coma; G47.33 Obstructive sleep apnea (adult) (pediatric); E87.5 Hyperkalemia; I12.9 Hypertensive chronic kidney disease with stage 1 through stage 4 chronic kidney disease, or unspecified chronic kidney disease; T38.3X6A Underdosing of insulin and oral hypoglycemic [antidiabetic] drugs, initial encounter; Z91.128 Patient's intentional underdosing of medication regimen for other reason; E78.5 Hyperlipidemia, unspecified; N18.30 Chronic kidney disease, stage 3 unspecified; K25.9 Gastric ulcer, unspecified as acute or chronic, without hemorrhage or perforation; Z91.119 Patient's noncompliance with dietary regimen due to unspecified reason; E11.22 Type 2 diabetes mellitus with diabetic chronic kidney disease; Z79.4 Long term (current) use of insulin; Z79.82 Long term (current) use of aspirin; Z79.899 Other long term (current) drug therapy
CPT/HCPCS: 43239; 36415; 71045; 74176; 80048; 80053; 80061; 81001; 82533; 82947; 84484; 85025; 85610; 87040; 87086; 88305; 88313; 88342; 93005; 94660; 99222; 99285; J0330; J0696; J1100; J1644; J1720; J2250; J2371; J2405; J2470; J2704; J7120

== ENCOUNTER → 2025-03-10 14:49 | Outpatient (BNV) | payer OTHER, SELFPAY | PROVIDERS: PCP Student in an Organized Health Care Education/Training Program; Visit Provider Internal Medicine | DX: R94.31 Abnormal electrocardiogram [ECG] [EKG] (principal); R42 Dizziness and giddiness | CPT/HCPCS: 93010 ==

== ENCOUNTER → 2025-03-10 14:55 | Outpatient (BNV) | payer OTHER, SELFPAY | PROVIDERS: PCP Student in an Organized Health Care Education/Training Program; Visit Provider Radiology Diagnostic Ultrasound | DX: K57.30 Diverticulosis of large intestine without perforation or abscess without bleeding (principal); R07.9 Chest pain, unspecified | CPT/HCPCS: 71045; 74176 ==

== ENCOUNTER → 2025-03-10 19:42 | Outpatient (BNV) | payer OTHER, SELFPAY | PROVIDERS: Admitting Provider Hospitalist; Emergency Provider Emergency Medicine; PCP Student in an Organized Health Care Education/Training Program; Visit Provider Internal Medicine Gastroenterology | DX: R10.13 Epigastric pain (principal); K20.90 Esophagitis, unspecified without bleeding; K22.2 Esophageal obstruction; K29.00 Acute gastritis without bleeding; K29.80 Duodenitis without bleeding | CPT/HCPCS: 43239; 99223 ==

== ENCOUNTER → 2025-03-10 19:42 | Outpatient (BNV) | payer OTHER, SELFPAY | PROVIDERS: Admitting Provider Hospitalist; Emergency Provider Emergency Medicine; PCP Student in an Organized Health Care Education/Training Program; Visit Provider Student in an Organized Health Care Education/Training Program | DX: E11.9 Type 2 diabetes mellitus without complications (principal); N17.9 Acute kidney failure, unspecified; E11.69 Type 2 diabetes mellitus with other specified complication; E78.5 Hyperlipidemia, unspecified; K29.60 Other gastritis without bleeding | CPT/HCPCS: 99222; 99232; 99233; 99239; 99499 ==

== ENCOUNTER 2025-03-17 14:48 | Outpatient (AMB) | payer OTHER, SELFPAY ==
--- NOTE | 2025-03-17 15:23 | MHC.OFFVIS ---
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 Volume: 95 cc. The double wall endometrial thickness is 14 mm. There is a 2.1 cm mixed iso to hyperechoic lesion in the body fundus junction of the endometrium. There is a 1.8 cm slightly exophytic mixed hypoechoic soft tissue lesion in the right lateral lower body cervix junction without gross calcifications or flow on color Doppler interrogation. Adnexa: The right ovary is not identified.. The left ovary is identified with flow on color Doppler interrogation. No gross solid or cystic lesion. No free fluid in the cul-de-sac. Left ovary measures 3 x 3 x 3 cm. Volume: 20 cc. US/US pelvic and transvaginal IMPRESSION: 14 mm thickened endometrial stripe, abnormal in a postmenopausal woman. 2.1 cm soft tissue lesion, endometrium. Consider submucosal fibroid versus malignancy. 1.8 cm subserosal uterine fibroid. Right ovary is not identified. Left ovary is normal. The patient was referred few months ago to Dr. Bacon for thickened endometrium for hysteroscopy D&C possible polypectomy/myomectomy given her comorbidities, she was seen 10/19/2024 for thickened endometrial, the plan was for her to have medical clearance to proceed with the procedure, the patient got medical her medical clearance and procedures is being scheduled [facility] Medical History Osteoarthritis Diverticulosis Diabetes Elevated cholesterol HTN (hypertension) Restrictive lung disease Somnolence, daytime Snoring VIRI (obstructive sleep apnea) Dyspnea on exertion Obesity (BMI 35.0-39.9 without comorbidity) Surgical History Hx of cataract extraction H/O colonoscopy History of dilatation and curettage H/O: knee surgery Family History Mother Colon cancer Diabetes Heart disease Brother Colon cancer Father Angina at rest Social History Household Members: None Housing: Apartment Are you a primary direct care professional to a significant other at home: No Do you presently have visiting nurse or other home services: No Alcohol intake: never Patient Tobacco Use Status: Never used Tobacco Second Hand Smoke Exposure: No service: No Review of Systems Const All systems reviewed & are unremarkable except as noted in HPI and below Reports as per HPI and Reports no additional complaints GI Reports no additional complaints Reports no additional complaints Assessment & Plan Assessment & Plan (1) Abnormal ultrasound of endometrium: Code(s): R93.5 - Abnormal findings on diagnostic imaging of other abdominal regions, including retroperitoneum Category: Medical Plan: Discussed with the patient the finding on ultrasound showing thickened endometrium and endometrial mass possible myoma versus endometrial malignancy and uterine myoma. Discussed with the patient differential diagnosis including but not limited to endometrial hyperplasia and/or malignancy or endometrial polyp and myoma versus spinal sarcoma. The patient is in the process of scheduling her hysteroscopy D&C polypectomy with Dr. Hernández at [facility]. Instructed the patient to call our office back in case a referral appointment is not scheduled, missed or canceled so that we will assist on rescheduling another appointment, the patient verbalized understanding agreed with the plan. Coding Level of Care Code Est Pt Level 3 (11861) Diagnoses Abnormal ultrasound of endometrium R93.5
[2025-03-17 15:27] VITALS: BP 94/52; BMI 38.1
--- OUTSIDE RECORDS SUMMARY | 2025-03-17 18:35 | XMS_ITS | Encounter Summary ---
Author Organization [employer] Address [address] [place] [address] Care Team Providers Care Bombsight Specialist Name Role Phone Qamar Mittal CNP Primary Care Provider [phone] Reason for Visit * Reason Comments Med Refill Encounter Details Date Type Department Care Team ([facility] Contact Info) Description 02/07/2025 Refill [facility] [address], [place] [phone] Daiana Trevino MD [address] [place], [place] [phone] Social History Tobacco Use Types Packs/Day Years [...] Care Team (Late st Contact Info) Description 03/23/2025 3:00 PM EST Office Visit [facility] [address] [place] [address] Luis Miguel Delatorre, DMD [address] [place] [address] 04/21/2025 3:15 PM EST Office Visit [facility] [address] [place] [address] Qamar Mittal CNP [address] [place] [address] documented as of this encounter Visit Diagnoses Not on filedocumented in this encounter Additional Health Concerns Assessment Noted Time PHQ-9 Depression Total Score: 0 12/30/19 11:36 AM EDT documented as of this encounter Care Teams Bombsight Specialist Relationship Specialty Start Date End Date Qamar Mittal CNP [address] [place] [address] PCP - General Family Medicine 02/04/25 documented as of this encounter
--- OUTSIDE RECORDS SUMMARY | 2025-03-17 18:35 | XMS_ITS | Clinical Summary ---
Author Organization [email or web address] Address [address] [place] [address] [address] [place] [address] Care Team Providers Care Head Strength And Conditioning Coach Name Role Phone Qamar Mittal CNP Primary Care Provider [phone] Allergies No known active allergies Medications fluticasone (Flonase) 50 MCG/ACT nasal spray INHALE ONE OR TWO SPRAYS IN EACH NOSTRIL DAILY NEEDED 16 g 3 023 Active insulin pen needle (UltiCare Short Pen Butler) 31G X 8 mm miscIndicatio ns:Type 2 [...] complication, without long-term current use of insulin ([facility]) INJECT 35 UNITS SUBCUTANEOUSLY AT BEDTIME 15 [...] complication, with long-term current use of insulin ([facility]) Check sugars twice daily 100 each 025 2025 Active Blood Glucose Monitoring Suppl (Accu-Chek Guide) w/Device kitIndication s:Type 2 diabetes mellitus without complication, with long-term current use of insulin ([facility]) Check sugars twice daily 1 kit 3 [...] complication, with long-term current use of insulin ([facility]) Inject 2.5 mg under the skin 1 (one) time per week. 2 mL Active dapagliflozin (Farxiga) 10 MGIndications :Type 2 diabetes mellitus without complication, with long-term current use of insulin ([facility]),Stage 4 chronic kidney disease (CMS/HCC) ([facility]) Take 1 tablet (10 mg) by mouth Once per day. 30 tablet 11 2025 Active glipiZIDE (Glucotrol) 10 MG tablet TAKE TWO TABLETS TWICE DAILY IN THE MORNING AND EVENING 120 tablet 11 024 2024 Discontinued triamterene-h ydroCHLOROthi azide (Dyazide) 37.5-25 MG capsule TAKE ONE CAPSULE EVERY MORNING 30 capsule 11 2024 Discontinued glucose blood (Cara HealthTouch Ultra Test) test stripIndicati ons:Type 2 diabetes mellitus without complication, without long-term current use of insulin ([facility]) TEST BLOOD SUGAR FOUR TIMES DAILY 100 strip 5 2024 Discontinued(M ed list cleanup (will not trigger notification to Pharmacy)) sertraline (Zoloft) 25 MG tablet TAKE ONE TABLET EVERY MORNING 30 tablet 2 2024 Discontinued furosemide (Lasix) 20 MG tablet TAKE ONE TABLET EVERY MORNING 30 tablet 1 2024 Discontinued Active Problems Problem Noted Date [...] Encounters Date Type Department Care Team Description 03/10/2025 Orders Only GENERIC EXTERNAL DATA DEPARTMENT Provider, Generic External Data 03/09/2025 3:00 PM EST Office Visit [facility] [address] [place] [phone] Luis Miguel Delatorre DMD Denture irritation (Primary Dx) 03/05/2025 Orders Only [facility] External Provider, [facility] 02/26/2025 2:00 PM EST Office Visit [facility] [address] [place] [address] Luis Miguel Delatorre DMD Partial edentulism, unspecified edentulism class (Primary Dx); Periodontal disease 02/19/2025 1:00 PM EDT Office Visit [facility] [address] [place] [address] Qamar Mittal CNP Stage 4 chronic kidney disease (CMS/HCC) (HCC) (Primary Dx); Type 2 diabetes mellitus without complication, with long-term current use of insulin (HCC); Encounter for vaccination; Anxiety 02/19/2025 Travel 02/17/2025 Refill [facility] [address] [place] [address] Daiana Trevino MD 02/11/2025 1:00 PM EDT Office Visit [facility] [address] [place] [address] Luis Miguel Delatorre, DMD Partial edentulism, unspecified edentulism class (Primary Dx) 02/11/2025 Patient Outreach [facility] [address] [place] [phone] Qamar Mittal CNP Pre-visit Planning ([facility] screening completed on 10/15/24) 02/10/2025 Travel 02/07/2025 Refill [facility] [address] [place] [address] Daiana Trevino MD 02/04/2025 5:40 PM EDT Office Visit [facility] [address] [place] [phone] Selena Rhoades NP Muscle pain (Primary Dx); Hypertriglyceridemia 02/04/2025 Telephone [facility] [address] [place] [address] Qamar Mittal CNP ICD-10 CODE 02/04/2025 Travel 02/04/2025 Telephone [facility] [address] [place] [address] Whitney Mina MA Chart Prep 02/03/2025 Telephone [facility] [address] [place] [address] Daiana Trevino MD 01/27/2025 2:00 PM EDT Office Visit [facility] [address] [place] [address] Luis Miguel Delatorre, DMD Partial edentulism, unspecified edentulism class (Primary Dx) 01/23/2025 Refill [facility] [address] [place] [address] Daiana Trevino MD 01/21/2025 Refill [facility] [address] [place] [phone] Daiana Trevino MD Type 2 diabetes mellitus without complication, with long-term current use of insulin (HCC) 01/13/2025 2:00 PM EDT Office Visit [facility] [address] [place] [address] Jerry Griffin Partial edentulism, unspecified edentulism class (Primary Dx); Dental calculus 01/07/2025 Travel 01/06/2025 Travel 12/29/2024 11:15 AM EDT Office Visit [facility] [address] [place] [address] Daiana Trevino MD Primary hypertension (Primary Dx); Type 2 diabetes mellitus without complication, with long-term current use of insulin ([facility]); Hypercholesterolemia 12/29/2024 Travel 12/28/2024 Travel 12/26/2024 Telephone [facility] [address] [place] [address] Daiana Trevino MD Chart Prep 12/24/2024 10:00 AM EDT Office Visit [facility] [address] [place] [address] Flako Briones, DMD 12/24/2024 Travel 12/19/2024 Refill [facility] [address] [place] [address] Daiana Treivno MD Type 2 diabetes mellitus without complication, without long-term current use of insulin ([facility]) from Last 3 Months Immunizations Immunization Administration Dates Next Due Influenza, IIV3, injectable 01/28/2014 Influenza, Split (incl. regulo fied surface antigen) 03/26/2013,01/19/2012 Pfizer Covid-19 Vaccine 12+ 02/19/2025,,02/22/2023 Pneumococcal Conjugate PCV 20 06/20/2023 Pneumococcal Polysaccharide [...] Description 03/23/2025 3:00 PM EST Office Visit [facility] [address] [place], [place] [phone] Luis Miguel Delatorre, DMD [address] [place], [place] [phone] 04/21/2025 3:15 PM EST Office Visit [facility] [address] [place], [place] [phone] Qamar Mittal, [employer] [address] [place], [place] [phone] Health Maintenance Due Date Last Done Comments [...] 01/14/20 25, 11/22/2023, 06/02/2021, Additional history exists Lipid Panel 02/06/2026 02/06/2025, 10/22, 03/07/2024, Additional history exists Diabetes: Foot Exam 02/19/2026 02/19/2025, 02/19/2025, 02/19/2025, Additional history exists Tobacco Screening 03/09/2026 03/09/2025 DTaP/Tdap/Td Vaccines (2 - Td or Tdap) [...] on patient's age to complete this topic Goals Goal Patient Goal Type Associated Problems Recent Progress Patient-Stated? Author Help patients manage their type 2 diabetes Care Plan Help patients manage their type 2 diabetes Luis Miguel Owen DMD Weekly blood pressure task Care Plan Weekly blood pressure task Luis Miguel Owen DMD Help patients manage their type 2 diabetes Care Plan Help patients manage their type 2 diabetes Luis Miguel Owen DMD Patient has chronic kidney disease Care Plan Patient has chronic kidney disease Luis Miguel Owen DMD Weekly blood pressure task Care Plan Weekly blood pressure task Luis Miguel Owen DMD Patient has chronic kidney disease Care Plan Patient has chronic kidney disease Luis Miguel Owen DMD Procedures Procedure Name Priority Date/Time Associated Diagnosis Comments GLUCOSE, WHOLE BLOOD Routine 03/10/2025 4:[address] ABDOMEN PELVIS WO CONTRAST Routine 03/10/2025 4:09 PM EST GLUCOSE, WHOLE BLOOD Routine 03/10/2025 3:38 PM EST DENTURE FOLLOWUP Routine 03/09/2025 3:00 PM EST Denture irritation US PELVIS TRANSVAGINAL Routine 03/05/2025 1:15 PM [...] complication, with long-term current use of insulin ([facility]) RE-EVAL - POST-OP OFFICE VISIT Routine 12/24/2024 10:00 AM EDT ALBUMIN, RANDOM URINE W/CREATININE Routine 11/17/2024 10:03 AM EDT Type 2 diabetes mellitus without complication, with long-term current use of insulin ([facility]) PANORAMIC RADIOGRAPHIC IMAGE Routine 07/09/2024 3:00 PM EDT Periodontal disease Dental caries from Last 3 Months or Most Recently Relevant to Health Maintenance Results * (ABNORMAL) Glucose, Whole Blood (03/10/2025 4:26 PM EST) Only the most recent of2 resultswithin the time period is included. Glucose, Whole Blood 127(H) 60 - 115 mg/dL [facility] Comment:METER #: [id number] 03/10/2025 4:26 PM EST 03/10/2025 5:37 PM EST us Generic External Data Provider LAB BLOOD ORDERAB LES Final Result Performing Organization Address City/State/[facility] Co de Phone Number [facility] [address] [place], [place] [phone] * CT Abdomen Pelvis w/o Contrast (03/10/2025 4:09 PM EST) Anatomical Region Laterality Modality Body, Pelvis, Abdomen Computed T omography 03/10/2025 4:09 PM EST Narrative 03/10/2025 4:47 PM EST [address] [address] [address] Scan Report Signed Patient: Yuliet Underwood MR#: [id number] 992 : 1945 Acct:[id number] Age/Sex: 79 / F ADM Date: 03/10/25 Loc: HO.ED Attending Dr: Ordering Physician: Juana Dougherty Date of Service: 03/10/25 Procedure(s): CT abdomen pelvis wo IV con Accession Number(s): [id number] cc: Juana Dougherty; Daiana Trevino MD Report Number: [id number]: Total DLP = 733.00 mGy-cm Reason for Exam: abd pain EXAMINATION: CT ABDOMEN AND PELVIS WITHOUT CONTRAST CLINICAL INFORMATION: Abdominal pain. 79-year-old female. No further clinical information provided. COMPARISON: 09/29/2024, 08/10/2024. TECHNIQUE: Multidetector volumetric imaging was performed from the superior aspect of the liver through the pubic symphysis. Sagittal and coronal reformatted images were obtained on the technologist's workstation. This CT examination was performed using dose optimization techniques as appropriate, variously including the following: *Automated exposure control *Adjustment of mA and/or kV according to patient size (this includes techniques or standardized protocols for targeted exams where dose is matched to indication/reason for exam; i.e. extremities or head) *Use of iterative reconstruction technique FINDINGS: LUNG BASES: Lung bases demonstrate mild dependent atelectasis but are otherwise clear. There are no effusions. The heart size is borderline enlarged. There are mitral annular calcifications and mild coronary calcifications. No pericardial effusion. The distal esophagus is mildly patulous. The GE junction is normal. LIVER, GALLBLADDER, AND BILIARY TREE: The unenhanced liver is normal in size, shape, and attenuation. No focal hepatic lesion or biliary ductal dilatation is present. The gallbladder is unremarkable with no evidence of radiopaque gallstones, gallbladder wall thickening, or obvious pericholecystic inflammatory changes. PANCREAS: Unremarkable. SPLEEN: Unremarkable. ADRENAL GLANDS: Unremarkable. KIDNEYS AND URETERS: The kidneys are normal in size, shape, and attenuation. 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 No hydronephrosis, hydroureter, or calculi seen. No perinephric stranding. There is a simple 1.2 cm cyst in the midpole right kidney. BLADDER: Unremarkable. GASTROINTESTINAL TRACT: There is colonic diverticulosis, involving the transverse, descending, and sigmoid colon. No rectal abnormality. Small bowel is normal in caliber and course. Stomach is somewhat decompressed. The duodenum appears normal. A normal appendix is visualized. ABDOMINAL WALL: No significant hernia is identified. There is evidence of pelvic floor weakness. LYMPH NODES: No evidence of pathologic lymphadenopathy. VASCULAR: Moderate calcification of the aorta and iliac vessels without aneurysm.. PELVIC VISCERA: Uterus demonstrates a probable dorsal uterine fibroid. Otherwise unremarkable noncontrast appearance. Adnexa are unremarkable. OSSEOUS STRUCTURES: No suspicious lytic or blastic bone lesions. There are degenerative changes throughout the spine. There are moderate degenerative changes in the left greater than right SI joints. There are mild degenerative changes in the bilateral hip joints. CT/CT abdomen pelvis wo IV con IMPRESSION: 1. No acute finding in the abdomen or pelvis. 2. There is colonic diverticulosis without evidence of acute diverticulitis. 3. There is a probable dorsal uterine fibroid present. 4. There are additional ancillary findings as discussed in the body of the report. Electronically signed by: Hunter Lazo MD 03/10/2025 04:44 PM [facility] Dictated By: Hunter Lazo MD Signed By: <Electronically signed by Hunter Lazo MD in OV> 03/10/25 1644 DD/ 1609 TD/TT: 03/10/25 1621 Bleach Supervisor: Procedure Note Donotuseinterpreter, Image - 03/10/[address] [address] [address] Scan Report Signed Patient: Everton Underwood#: [id number] 992 : 6Acct:[id number] Age/Sex: 79 / FADM Date: 03/10/25 Loc: HO.ED Attending Dr: Ordering Physician: Juana Dougherty Date of Service: 03/10/25 Procedure(s): CT abdomen pelvis wo IV con Accession Number(s): [id number] cc: Juana Dougherty; Daiana Trevino MD Report Number: [id number]: Total DLP = 733.00 mGy-cm Reason for Exam: abd pain EXAMINATION: CT ABDOMEN AND PELVIS WITHOUT CONTRAST CLINICAL INFORMATION: Abdominal pain. 79-year-old female. No further clinical information provided. COMPARISON: 09/29/2024, 08/10/2024. TECHNIQUE: Multidetector volumetric imaging was performed from the superior aspect of the liver through the pubic symphysis. Sagittal and coronal reformatted images were obtained on the technologist's workstation. This CT examination was performed using dose optimization techniques as appropriate, variously including the following: *Automated exposure control *Adjustment of mA and/or kV according to patient size (this includes techniques or standardized protocols for targeted exams where dose is matched to indication/reason for exam; i.e. extremities or head) *Use of iterative reconstruction technique FINDINGS: LUNG BASES: Lung bases demonstrate mild dependent atelectasis but are otherwise clear. There are no effusions. The heart size is borderline enlarged. There are mitral annular calcifications and mild coronary calcifications. No pericardial effusion. The distal esophagus is mildly patulous. The GE junction is normal. LIVER, GALLBLADDER, AND BILIARY TREE: The unenhanced liver is normal in size, shape, and attenuation. No focal hepatic lesion or biliary ductal dilatation is present. The gallbladder is unremarkable with no evidence of radiopaque gallstones, gallbladder wall thickening, or obvious pericholecystic inflammatory changes. PANCREAS: Unremarkable. SPLEEN: Unremarkable. ADRENAL GLANDS: Unremarkable. KIDNEYS AND URETERS: The kidneys are normal in size, shape, and attenuation. 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 No hydronephrosis, hydroureter, or calculi seen. No perinephric stranding. There is a simple 1.2 cm cyst in the midpole right kidney. BLADDER: Unremarkable. GASTROINTESTINAL TRACT: There is colonic diverticulosis, involving the transverse, descending, and sigmoid colon. No rectal abnormality. Small bowel is normal in caliber and course. Stomach is somewhat decompressed. The duodenum appears normal. A normal appendix is visualized. ABDOMINAL WALL: No significant hernia is identified. There is evidence of pelvic floor weakness. LYMPH NODES: No evidence of pathologic lymphadenopathy. VASCULAR: Moderate calcification of the aorta and iliac vessels without aneurysm.. PELVIC VISCERA: Uterus demonstrates a probable dorsal uterine fibroid. Otherwise unremarkable noncontrast appearance. Adnexa are unremarkable. OSSEOUS STRUCTURES: No suspicious lytic or blastic bone lesions. There are degenerative changes throughout the spine. There are moderate degenerative changes in the left greater than right SI joints. There are mild degenerative changes in the bilateral hip joints. CT/CT abdomen pelvis wo IV con IMPRESSION: 1. No acute finding in the abdomen or pelvis. 2. There is colonic diverticulosis without evidence of acute diverticulitis. 3. There is a probable dorsal uterine fibroid present. 4. There are additional ancillary findings as discussed in the body of the report. Electronically signed by: Hunter Lazo MD 03/10/2025 04:44 PM [facility] Dictated By: Hunter Lazo MD Signed By: <Electronically signed by Hunter Lazo MD in OV> 03/10/25 9576 DD/ 1609 TD/TT: 03/10/25 1621 Bleach Supervisor: [facility] External Provider IMG CT PROCEDURES Final Result * US Pelvis Transvaginal (03/05/2025 1:15 PM EST) Anatomical Region Laterality Modality Pelvis Ultrasound 03/05/2025 1:15 PM EST Narrative 03/05/2025 2:09 PM EST [address] [address] Ultrasound Report Signed Patient: Yuliet Underwood MR#: [id number] 992 : 1945 Acct:[id number] Age/Sex: 79 / F ADM Date: 03/05/25 Loc: HO.US Attending Dr: Clint Damon MD Ordering Physician: Clint Damon MD Date of Service: 03/05/25 Procedure(s): US pelvic and transvaginal Accession Number(s): [id number] cc: Daiana Trevino MD; Clint Damon MD [...] 03/05/25 1406 DD/ 1315 TD/TT: 03/05/25 1332 Bleach Supervisor: Procedure Note Donotuseinterpreter, Image - 03/05/[address] [address] Ultrasound Report Signed Patient: Everton Underwood#: [id number] : 1945cct:[id number] Age/Sex: 79 / FADM Date: 03/05/25 Loc: HO.US Attending Dr: Clint Damon MD Ordering Physician: Clint Damon MD Date of Service: 03/05/25 Procedure(s): US pelvic and transvaginal Accession Number(s): [id number] cc: Daiana Trevino MD; Clint Damon MD [...] 03/05/25 1406 DD/ 1315 TD/TT: 03/05/25 1332 Bleach Supervisor: Result [facility] External Provider IMG US PROCEDURES Final Result * POCT glucose manually resulted (02/19/2025 2:04 PM EDT) Only the most recent of2 resultswithin the time period is included. Glucose Blood, POC 126 60 - 200 mg/dL QC Media Lot # Comment:[id number] Lot# Expiration Date Comment:05/31/2025 Blood Capillary blood specimen / Unknown 02/19/2025 2:04 PM EDT Result [facility] POINT OF CARE TEST ENTER/ EDIT ORDERABLES Final Result * (ABNORMAL) POCT A1c (02/19/2025 2:03 PM EDT) Hemoglobin A1C 8.3(A) 4.0 - 5.7 % QC Media Lot # Comment:[id number] Lot# Expiration Date Comment:08/14/2026 Blood 02/19/2025 2:03 PM EDT Result [facility] POINT OF CARE TEST ENTER/ EDIT ORDERABLES Final Result * (ABNORMAL) Hemoglobin A1c (02/06/2025 10:20 AM EDT) Hemoglobin A1c 8.6(H) <6.0 % [facility] Comment:Hemoglobin A1C Refer ence Range Adults: 4.8 - 6.0 % Non diabetic: < 6.0 % Goal: < 7.0 %Additional Action Suggested: > 8.0 %Note: Hemoglobin A1c results are invalid for patients with abnormal amounts of HbF. Blood transfusions may impact the HbA1c concentration in the patient sample. Estimated Average Glucose 200 mg/dL [facility] Comment:eAG = Estimated ave rage glucose which is %A1C expressed asaverage glucose, using the formula of the J7L-LokfgnxAfktuhu Glucose study (ADAG), Diabetes Care, Vol.31,#8,Nov. 2007 Blood Venous blood specimen / Unknown 02/06/2025 10:20 AM EDT 02/06/2025 2:38 PM EDT Daiana Trevino MD LAB BLOOD ORDERABLES Final Resul t Performing Organization Address [facility] de Phone Number [facility] [address] [place] [phone] * Hepatic Function Panel (02/06/2025 10:20 AM EDT) Bilirubin, Total 0.2 0.0 - 1.0 mg/dL [facility] Bilirubin, Direct <0.2 0.0 - 0.5 mg/dL [facility] Aspartate Amino Transferase 29 5 - 31 U/L [facility] Alanine Aminotransferase 11 0 - 31 U/L [facility] Total Protein 7.1 6.5 - 8.0 g/dL [facility] Albumin Level 4.6 3.5 - 5.0 g/dL [facility] Alkaline Phosphatase 48 39 - 117 U/L [facility] Blood Venous blood specimen / Unknown 02/06/2025 10:20 AM EDT 02/06/2025 2:38 PM EDT us Daiana Trevino MD LAB BLOOD ORDERABLES Final Resul t Performing Organization Address [facility] Co de Phone Number [facility] [address] [place] [address] [phone] * (ABNORMAL) Lipid Panel, Standard (02/06/2025 10:20 AM EDT) Triglycerides 430(H) <150 mg/dL [facility] Comment:Slight Lipemia.Jenna able Triglyceride: less than 150 mg/dLBorderline High Triglyceride 150-199 mg/dLHigh Triglyceride: 200-499 mg/dLVery High Triglyceride: greater than or equal to 5OO mg/dL Cholesterol 152 <200 mg/dL [facility] Comment:Desirable Cholestero l: less than 200 mg/dLBorderline High Cholesterol: 200-239 mg/dLHigh Cholesterol: greater than 239 mg/dL LDL Cholesterol Calculated TNP <100 mg/dL [facility] Comment:Unable to calculate the LDL. The formula of Friedwald,Degroot, and Gemma is only valid if the triglycerides areless than 400 mg/dl. HDL Cholesterol 27(L) >40 mg/dL [facility] Comment:Desirable HDL: great er than 40 mg/dL Note: This HDL assay may give artificially low results in patients with liver disease. Blood Venous blood specimen / Unknown 02/06/2025 10:20 AM EDT 02/06/2025 2:38 PM EDT us Daiana Trevino MD LAB BLOOD ORDERABLES Final Resul t [facility] [address] [place] [phone] [phone] * (ABNORMAL) Basic Metabolic Panel (02/06/2025 10:20 AM EDT) Sodium 142 135 - 145 mmol/L [facility] Potassium 4.3 3.3 - 5.1 mmol/L [facility] Chloride 105 96 - 108 mmol/L [facility] Carbon Dioxide 24 22 - 29 mmol/L [facility] Anion Gap 17 12 - 20 [facility] Urea Nitrogen (BUN) 49(H) 9 - 16 mg/dL [facility] Creatinine, Serum 1.79(H) 0.5 - 1.4 mg/dL [facility] Estimated Glomerular Filt Rate 27 [facility] Comment:Chronic Kidney Disea se: Estimated GFR < 60 mL/min/[id number] Kidney Disease: Estimated GFR < 15 mL/min/1.73m2 Glucose 152(H) 60 - 115 mg/dL [facility] Calcium 10.5(H) 8.4 - 10.2 mg/dL [facility] Blood Venous blood specimen / Unknown 02/06/2025 10:20 AM EDT 02/06/2025 2:38 PM EDT Daiana Trevino MD LAB BLOOD ORDERABLES Final Resul t Performing Organization Address [facility] Co de Phone Number [facility] [address] [place] [phone] * (ABNORMAL) Albumin, Random Urine W/Creatinine (11/17/2024 10:03 AM EDT) Creatinine, Urine 115.32 mg/dL [facility] Microalbumin Urine 99.0 mg/L [facility] Microalbum Creatinine Ratio Ur 85.8(H) <30 ug/mg cr [facility] Comment:Albumin/Creatinine R atio Reference Ranges: Normal: < 30 ug/mg creatinine Microalbuminuria: 30 - 300 ug/mg creatinineClinical Albuminuria: > 300 ug/mg creatinine 11/17/2024 10:0 3 AM EDT 11/17/2024 2:53 PM EDT Daiana Trevino MD LAB URINE ORDERABLES Final Resul t Performing Organization Address [facility] Co de Phone Number [facility] [address] [place] [phone] from Last 3 Months or Most Recently Relevant to Health Maintenance Additional Health Concerns Active Problems Noted Date Diagnosed Date Help patients manage their type 2 diabetes 03/09 Weekly blood pressure task 03/09/2025 Help patients manage their type 2 diabetes 03/09 Patient has chronic kidney disease 03/09/2025 Weekly blood pressure task 03/09/2025 Patient has chronic kidney disease 03/09/2025 Insurance [facility] Care Teams Head Strength And Conditioning Coach Relationship Specialty Start Date End Date Qamar Mittal CNP [address] [place] [address] [place] [address] PCP - General Family Medicine 02/04/25
--- OUTSIDE RECORDS SUMMARY | 2025-03-17 18:35 | XMS_ITS | Encounter Summary ---
Author Organization [employer] [facility] Address [address] [place] [address] 7 [place] [address] Care Team Providers Care Linen Clerk Name Role Phone Qamar Mittal CNP Primary Care Provider +1 -[phone] Encounter Details Date Type Department Care Team (Late st Contact Info) Description 12/27/2022 Orders Only [facility] MED & PEDS [address] [place] [address] Shannen Kerr LPN Social History Tobacco Use [...] Description 03/23/2025 3:00 PM EST Office Visit [facility] ADULT DENTAL [address] [place] [address] Luis Miguel Delatorre, JEFERSON 505 [place] [address] 04/21/2025 3:15 PM EST Office Visit [facility] MED [facility] PEDS [address] [place] [address] Qamar Mittal CNP 505 [place] [address] documented as of this encounter Visit Diagnoses Not on filedocumented in this encounter Care Teams Linen Clerk Relationship Specialty Start Date End Date Qamar Mittal CNP 505 [facility] [address] PCP - General Family Medicine 02/04/25 documented as of this encounter
--- OUTSIDE RECORDS SUMMARY | 2025-03-17 18:35 | XMS_ITS | Encounter Summary ---
Author Organization [employer] Address [address] [facility] 7t [place] [address] Care Team Providers Care Co Director Name Role Phone Qamar Mittal CNP Primary Care Provider +1 -[phone] Reason for Visit * Reason Comments Med Refill Encounter Details Date Type Department Care Team ([facility] Contact Info) Description 03/12/2024 Refill [facility] MED & PEDS [address] [place], [place] [phone] Daiana Trevino MD 505 [place] [address] Type 2 diabetes mellitus without complication, without long-term current use of insulin ([facility]) Social History Tobacco Use Types Packs/Day Years [...] Description 03/23/2025 3:00 PM EST Office Visit [facility] ADULT DENTAL [address] [place] [address] Luis Miguel Delatorre DMD 505 [place] [address] 04/21/2025 3:15 PM EST Office Visit [facility] [address] [place] [address] Qamar Mittal CNP 505 [place] [address] documented as of this encounter Visit Diagnoses Diagnosis Type 2 diabetes mellitus without complication, without long-term current use of insulin (HCC) documented in this encounter Additional Health Concerns Assessment Noted Time PHQ-9 Depression Total Score: 5 06/20/19 9:37 AM EST documented as of this encounter Care Teams Co Director Relationship Specialty Start Date End Date Qamar Mittal CNP [address] [place] [address] PCP - General Family Medicine 02/04/25 documented as of this encounter
--- OUTSIDE RECORDS SUMMARY | 2025-03-17 18:35 | XMS_ITS | Encounter Summary ---
Author Organization [employer] Address [address] [facility] 7 [place] [address] Care Team Providers Care Landfill Gas Plant Field Technician Name Role Phone Kyrie Taygeorge DEE Primary Care Provider +1 -[phone] Reason for Visit * Reason Onset Date Comments Appointment Request 04/05/2023 Encounter Details Date Type Department Care Team (Late st Contact Info) Description 04/05/2023 Telephone [facility] MEDICINE [address] [place], [place] [phone] Daiana Trevino MD 505 [place] [address] Appointment Request Social History Tobacco Use Types [...] - 04/05/2023 2:46 PM EST Tc from [place] with [facility] insurance requesting a PE appt for program Please contact pt @ [phone] documented in this encounter Plan of Treatment Upcoming Encounters Date Type Department Care Team (Late st Contact Info) Description 03/23/2025 3:00 PM EST Office Visit [facility] CHC ADULT DENTAL 505 [place], [place] [phone] Luis Miguel Delatorre, DMD [address] [place] [address] 04/21/2025 3:15 PM EST Office Visit [facility] CHC MED & PEDS [address] [place] [address] Qamar Mittal CNP 505 [place] [address] documented as of this encounter Visit Diagnoses Not on filedocumented in this encounter Care Teams Landfill Gas Plant Field Technician Relationship Specialty Start Date End Date Qamar Mittal CNP 505 [place] [address] PCP - General Family Medicine 02/04/25 documented as of this encounter
--- OUTSIDE RECORDS SUMMARY | 2025-03-17 18:35 | XMS_ITS | Encounter Summary ---
Author Organization [employer] Address [address] [facility] 7t [place] [address] Care Team Providers Care Business Development Assistant Name Role Phone Kyrie Taygeorge DEE Primary Care Provider +1 -[phone] Reason for Visit * Reason Onset Date Comments Referral 03/21/2023 Encounter Details Date Type Department Care Team ([facility] st Contact Info) Description 03/21/2023 Telephone [facility] MEDICINE [address] [place], [place] [phone] Daiana Trevino MD [address] [place] [address] Referral Social History Tobacco Use Types Packs/Day [...] from patient requesting a new referral for [facility] senior underwriter did call facility and needs a renewal on referral due to previous referral expiring in September [facility] documented in this encounter Plan of Treatment Upcoming Encounters Date Type Department Care Team (Late st Contact Info) Description 03/23/2025 3:00 PM EST Office Visit [facility] ADULT DENTAL 505 [place], [place] [phone] Luis Miguel Delatorre, DMD 505 [place], [place] [phone] 04/21/2025 3:15 PM EST Office Visit [facility] MED & PEDS [address] [place], [place] [phone] Qamar Mittal CNP 505 [place], [place] [phone] documented as of this encounter Visit Diagnoses Not on filedocumented in this encounter Care Teams Business Development Assistant Relationship Specialty Start Date End Date Qamar Mittal CNP [address] [place], [place] [phone] PCP - General Family Medicine 02/04/25 documented as of this encounter
--- OUTSIDE RECORDS SUMMARY | 2025-03-17 18:35 | XMS_ITS | Encounter Summary ---
Author Organization [facility] Address [address] [place] [address] 7 [place] [address] Care Team Providers Care Shop Mechanic Helper Name Role Phone Qamar Mittal CNP Primary Care Provider +1 -[phone] Encounter Details Date Type Department Care Team (Late st Contact Info) Description 02/27/2023 Orders Only [facility] MED & PED[facility] [address] [place] [address] Shannen Kerr LPN Social History Tobacco Use [...] Office Visit [facility] ADULT [facility] [address] [place] [address] Luis Miguel Delatorre, JEFERSON 505 [place] [address] 04/21/2025 3:15 PM EST Office Visit [facility] [address] [place] [address] Qamar Mittal CNP 505 [place] [address] documented as of this encounter Visit Diagnoses Not on filedocumented in this encounter Care Teams Shop Mechanic Helper Relationship Specialty Start Date End Date Qamar Mittal CNP [address] [place] [address] PCP - General Family Medicine 02/04/25 documented as of this encounter
--- OUTSIDE RECORDS SUMMARY | 2025-03-17 18:35 | XMS_ITS | Data Portability ---
Author Organization [place] [facility] Address [address] [place] [address] Assessment Encounter Date Assessment Date Assessment LastModified [...] of continued conservative management versus surgical management. [email or web address] Not available 03/05/2024 14:36:30 06/16/2024 06/16/2024 I [...] of continued conservative management versus surgical management. [email or web address] Not available 06/16/2024 12:59:53 10/30/2024 10/30/2024 I [...] of continued conservative management versus surgical management. [email or web address] Not available 10/29/2024 14:59:45 02/16/2025 02/16/2025 I [...] of continued conservative management versus surgical management. [email or web address] Not available 02/15/2025 19:44:57 Plan of Treatment [...] knee xrays. rm 211 2024 025 [email or web address] Office, [address] [facility], [address], [place], [address], 02/25/2025 12:37:32 Medication Orders None recorded. Patient TargetsNo targets recorded. Patient InstructionsNo instructions recorded. Reason for Referral None Reported. Results Created Date Observation Date Name Description Value Unit Range Abnormal Flag Note LastModifiedBy Organization Detail LastModifiedTime 02/17/2002/16/2025 XR, knee, 4 or more view http:/ [email or web address] ?Encry pted=s hAaTro YD8dLq bEUv6g %2BXZw aYqtaq 0bqfl% 2Fg9IQ a4ajBk vP9nXo QUaueC m3YtLR FvZlgJ JJ8mAn HZtai3 4g9255 AC0KlY nmGU6a iKiQtr MwF INTERFACE [facility] [address], [place], [address], 02/16/2025 09:50:23 02/17/2002/16/2025 XR, knee, 4 or more view http:/ [email or web address] ?Encry pted=s hAaTro YD8dLq bEUv6g %2BXZw aYqtaq 0bqfl% 2Fg9IQ a4ajBk vP9nXo QUaueC m3YtLR FvZlgJ JJ8mAn HZtai3 7a1222 AC0KlY nmGU6a iKiQtr MwF INTERFACE [facility] [address], [place], [address], 02/16/2025 09:50:25 Result Notes Documentation Provider Name and Address Organization Details Recorded Time Xr, Knee, 4 Or More View : [email or web address]? Encrypted=ffFwEmvCN1iOtbL Uv6g%6QHRfxAbaib1mplx%2Fg 0YKh8olFphT1lYyXLfxkXc6Up FNZbMpgMVP7iOwVEdcf37j381 2WN1CtEhlFZ1dmZtXmaBlN Not Available [facility] 02/16/2025 09:50: 24 Xr, Knee, 4 Or More View : [email or web address]? Encrypted=piNwRzoEL6iXezN Uv6g%1NXQahUdelp1expj%2Fg 5SEg1obThxY4dIjXRzlwGf0Bw QRTqVevXQM5eGyOXlcf46c549 7LD8ZtBttSN0fiBbCecOeC Not Available [facility] 02/16/2025 09:50: 25 Problems Name Problem SNOMED Code Status Onset Date Resolution Date Notes Provider Name and Address Organization Details Recorded Time Pain of bilateral knee regions 47892976223000 2 Active 2024 ELFEGO Arellano'HEURVY benson, [facility] 09:39:45 Problem Notes None recorded. Procedures Surgical History Date Name Laterality Status Provider Name and Address Organization Details Recorded Time 02/16/2025 JZNICHOLASEE INJ Frankie completed Chi Fierro PA-C [address] [facility] [address], [place], [address], [facility] 02/15/2025 19:44:52 10/30/2024 JZKNEE INJ Frankie completed Chi Fierro PA-C [address], [place], [address], [facility] 10/29/2024 14:59:39 06/16/2024 JZKNEE INJ Frankie completed Chi Fierro PA-C [address], [place], [address], [facility] 06/16/2024 08:05:41 06/09/2024 JZKNEE INJ Frankie cancelled Chi Fierro PA-C [address], [place], [address], [facility] 06/09/2024 12:48:39 03/06/2024 JZKNEE INJ Frankie completed Chi Fierro PA-C [address], [place], [address], [facility] 03/05/2024 14:36:22 12/04/2023 JZKNEE INJ Frankie completed Chi Fierro PA-C [address], [place], [address], [facility] 12/04/2023 08:17:20 09/06/2023 Sports Knee 4&1 completed Chi Fierro PA-C [address], [place], [address], [facility] 09/06/2023 12:35:54 Imaging Results [...] Updated DateTime 06/16/2024 154.94 cm 37 kg/m2 73113.1 g KAYLIA L'HEUREUX [place] - [facility] 06/16/2024 12:53:55 Date Recorded Body height Body mass index (BMI) Body weight Provider Name and Address Organization Details Last Updated DateTime 10/30/2024 154.94 cm 37 kg/m2 95326.1 evan Patel [facility] 10/30/2024 10:38:25 Date Recorded Body height Body mass index (BMI) Body weight Provider Name and Address Organization Details Last Updated DateTime 12/04/2023 154.94 cm 37 kg/m2 73593.1 evan KAYLIA L'HEUREUX [facility] 12/04/2023 15:03:01 Date Recorded Body height Body mass index (BMI) Body weight Provider Name and Address Organization Details Last Updated DateTime 02/16/2025 154.94 cm 37 kg/m2 96764.1 g KAYLIA L'HEUREUX [facility] 02/16/2025 09:37:43 Date Recorded Body height Body mass index (BMI) Body weight Provider Name and Address Organization Details Last Updated DateTime 03/06/2024 154.94 cm 37 kg/m2 72435.1 g KAYLIA L'HEUREUX [facility] 03/06/2024 15:47:23 Social History Question Answer Notes LastModified by Organizat ion Details LastModified Time Tobacco Smoking Status Never Smoker EVANYLIA L'HEUREUX [facility] 07/11/2023 15:03:03 What Is Your [...] Kidney/Bladder Problems N Anemia N Heart Attack (MS) N Cholesterol Y Diabetes Y Bleeding Disorder [...] ICD10 Code Diagnosis IMO Codes Diagnosis Note [id number] Chi Fierro PA-C [facility] [address] [place] [address] 07/11/2023 14:38:06 07/12/2023 07:58:16 Bilateral osteoarthritis of knees 8251303536 97441 M17.0 [id number] Chi Fierro PA-C [facility] [address] [place] [address] 09/06/2023 15:40:30 09/27/2023 15:02:46 Bilateral osteoarthritis of knees 0255772836 63037 M17.0 [id number] Chi Fierro PA-C [facility] [address] [place] [address] 12/04/2023 14:49:34 12/28/2023 12:23:49 Bilateral osteoarthritis of knees 4311465781 51356 M17.0 [id number] Chi Fierro PA-C [facility] [address] [place] [address] 03/06/2024 15:41:03 04/07/2024 12:00:28 Primary gonarthrosis, bilateral 916992415 M17.0 8324882 [id number] Chi Fierro PA-C [facility] - [facility] [address] [place] [address] 06/16/2024 12:48:05 06/30/2024 18:45:02 Primary gonarthrosis, bilateral 454782974 M17.0 6550525 [id number] Chi Fierro PA-C [facility] [address] [place] [address] 10/30/2024 10:32:46 11/10/2024 11:44:55 Primary gonarthrosis, bilateral 277312599 M17.0 8690754 [id number] Chi Fierro PA-C [facility] - [facility] [address] [place] [address] 02/16/2025 09:20:34 02/25/2025 12:37:32 Primary gonarthrosis, bilateral 300387084 M17.0 2297637 Pain of bi lateral knee regions 1777448765 82710 M25.561 M25.562 [id number] Health Concerns Section Related Observation LastModified by Organization Detai ls LastModified Time None Recorded Concern Status LastModified by Organization Details LastModified Time None Recorded Advance Directives Directive None Recorded Payers Insurance Date Sequence Insurance Name Policy Number Policy Collado Covered Member ID Collado Member ID Guarantor Name 02/25/2025 1 [facility] (MEDICARE REPLACEMENT/A DVANTAGE - HMO) Yuliet Underwood [id number] Yuliet Underwood OBGyn Episode No OBEpisode recorded.
--- OUTSIDE RECORDS SUMMARY | 2025-03-17 18:35 | XMS_ITS | Encounter Summary ---
Author Organization [employer] [facility] Address [address] [place] [address] 7 [place] [address] Care Team Providers Care Employment Services Director Name Role Phone Qamar Mittal CNP Primary Care Provider +1 -[phone] Encounter Details Date Type Department Care Team (Latest Contact Info) Description 01/02/2020 Abstract [facility] CONVERSIONS Dental, Provider, DDS Social History [...] 03/23/2025 3:00 PM EST Office Visit [facility] AD[facility] [address] [place] [address] Luis Miguel Delatorre DMD [address] [place] [address] 04/21/2025 3:15 PM EST Office Visit [facility] MED & PEDS [address] [place] [address] Qamar Mittal CNP [address] [place] [address] documented as of this encounter Visit Diagnoses Not on filedocumented in this encounter Care Teams Employment Services Director Relationship Specialty Start Date End Date Qamar Mittal CNP [address] [place] [address] PCP - General Family Medicine 02/04/25 documented as of this encounter
--- OUTSIDE RECORDS SUMMARY | 2025-03-17 18:35 | XMS_ITS | Encounter Summary ---
Author Organization [employer] Address [address] [facility] [address] 7t [place] [address] Care Team Providers Care Release Of Information Clerk Name Role Phone Qamar Mittal CNP Primary Care Provider +1 -[phone] Reason for Visit * Reason Comments Med Refill Encounter Details Date Type Department Care Team ([facility] Contact Info) Description 03/12/2024 Refill [facility] CHC MED & PEDS [address] [place], [place] [phone] Daiana Trevino MD [address] [place] [address] Social History Tobacco Use Types Packs/Day Years [...] Description 03/23/2025 3:00 PM EST Office Visit [facility] ADULT DENTAL [address] [place] [address] Luis Miguel Delatorre DMD [address] [place] [address] 04/21/2025 3:15 PM EST Office Visit [facility] MED & PEDS [address] [place] [address] Qamar Mittal CNP 505 [place] [address] documented as of this encounter Visit Diagnoses Not on filedocumented in this encounter Additional Health Concerns Assessment Noted Time PHQ-9 Depression Total Score: 5 06/20/19 24 9:37 AM EST documented as of this encounter Care Teams Release Of Information Clerk Relationship Specialty Start Date End Date Qamar Mittal CNP [address] [place] [address] PCP - General Family Medicine 02/04/25 documented as of this encounter
--- OUTSIDE RECORDS SUMMARY | 2025-03-17 18:35 | XMS_ITS | Encounter Summary ---
Author Organization [employer] Address [address] [facility] [address] 7t [place] [address] Care Team Providers Care Elementary Education Tutor Name Role Phone Qamar Mittal CNP Primary Care Provider +1 -[phone] Encounter Details Date Type Department Care Team ([facility] Contact Info) Description 03/07/2024 Orders Only [facility] CHC MED & PEDS [address] [place] [address] Daiana Trevino MD 505 [place] [address] Social History Tobacco Use Types Packs/Day Years [...] Description 03/23/2025 3:00 PM EST Office Visit [facility] ADULT DENTAL 505 [place] [address] Luis Miguel Delatorre DMD 505 [place] [address] 04/21/2025 3:15 PM EST Office Visit [facility] MED & PEDS [address] [place] [address] Qamar Mittal CNP 505 [place] [address] documented as of this encounter Visit Diagnoses Not on filedocumented in this encounter Additional Health Concerns Assessment Noted Time PHQ-9 Depression Total Score: 5 06/20/19 24 9:37 AM EST documented as of this encounter Care Teams Elementary Education Tutor Relationship Specialty Start Date End Date Qamar Mittal CNP [address] [place] [address] PCP - General Family Medicine 02/04/25 documented as of this encounter
--- OUTSIDE RECORDS SUMMARY | 2025-03-17 18:35 | XMS_ITS | Continuity of Care Document ---
Author Organization KATHYA - [facility], ZHANG [address] 2nd floor Address [address] [place] [address] Assessment Encounter Date Assessment Date Assessment LastModified [...] of continued conservative management versus surgical management. [email or web address] Not available 02/15/2025 19:44:57 Plan of Treatment [...] [facility], [address], [address], [place], [address], 02/25/2025 12:37:32 Medication Orders None recorded. Patient TargetsNo targets recorded. Patient InstructionsNo instructions recorded. Reason for Referral None Reported. Results Created Date Observation Date Name Description Value Unit Range Abnormal Flag Note LastModifiedBy Organization Detail LastModifiedTime 02/17/2002/16/2025 XR, knee, 4 or more view http:/ [email or web address] ?Encry pted=s hAaTro YD8dLq bEUv6g %2BXZw aYqtaq 0bqfl% 2Fg9IQ a4ajBk vP9nXo QUaueC m3YtLR FvZlgJ JJ8mAn HZtai3 3d6861 AC0KlY nmGU6a iKiQtr MwF INTERFACE [facility] [address], [place], [address], 02/16/2025 09:50:23 02/17/2002/16/2025 XR, knee, 4 or more view http:/ [email or web address] ?Encry pted=s hAaTro YD8dLq bEUv6g %2BXZw aYqtaq 0bqfl% 2Fg9IQ a4ajBk vP9nXo QUaueC m3YtLR FvZlgJ JJ8mAn HZtai3 0o9003 AC0KlY nmGU6a iKiQtr MwF INTERFACE [facility] [address], [place], [address], 02/16/2025 09:50:25 Result Notes Documentation Provider Name and Address Organization Details Recorded Time Xr, Knee, 4 Or More View : [email or web address] Encrypted=kwZpUnnPZ1rBqjS Uv6g%5KOYwqXsbjc1przq%2Fg 6XGw6unTayC8wUnGKrwvUx1Hk BUHtMhzRKO3yCdFVnty16i176 1YL1KrRdqCM0ypEmDwgQwE Not Available [facility] 02/16/2025 09:50: 24 Xr, Knee, 4 Or More View : [email or web address] Encrypted=dmQbPlaVV6iDajA Uv6g%1CANeqNlbri1vupb%2Fg 9ICh0duQriN6yDmEGvtwKj2Rs LEXzBbbRMJ4bLwQFoax53b934 7FR9MdNidWD6zuPpQvpCpP Not Available [facility] 02/16/2025 09:50: 25 Problems Name Problem SNOMED Code Status Onset Date Resolution Date Notes Provider Name and Address Organization Details Recorded Time Pain of bilateral knee regions [id number] 2 Active 2024 ELFEGO LEI [facility] 09:39:45 Problem Notes None recorded. Procedures Surgical History Date Name Laterality Status Provider Name and Address Organization Details Recorded Time 02/16/2025 JZKNEE INJ Frankie completed Chi Fierro PA-C [address] [facility], [place], [address], [facility] 02/15/2025 19:44:52 10/30/2024 JZKNEE INJ Frankie completed Chi Fierro PA-C [address] [facility], [place], [address], [facility] 10/29/2024 14:59:39 06/16/2024 JZKNEE INJ Frankie completed Chi Fierro PA-C [address], [place], [address], [facility] 06/16/2024 08:05:41 06/09/2024 JZKNEE INJ Frankie cancelled Chi Fierro PA-C [address], [place], [address], [facility] 06/09/2024 12:48:39 03/06/2024 JZKNEE INJ Frankie completed Chi Fierro PA-C [address], [place], [address], [facility] 03/05/2024 14:36:22 12/04/2023 JZKNEE INJ Frankie completed Chi Fierro PA-C [address], [place], [address], [facility] 12/04/2023 08:17:20 09/06/2023 Sports Knee 4&1 completed Chi Fierro PA-C [address], [place], [address], [facility] 09/06/2023 12:35:54 Imaging Results [...] Updated DateTime 02/16/2025 154.94 cm 37 kg/m2 97717.1 g KAYLIA L'HEUREUX [facility] 02/16/2025 09:37:43 Social History Question Answer Notes LastModified by [employer] Details LastModified Time Tobacco Smoking Status Never Smoker ELFEGO L'HEUREUX marcelino [facility] 07/11/2023 15:03:03 What Is Your Relationship Status? Single Information not available 07/11/2023 Sex: Unknown Functional Status Question Answer Note LastModified by [employer] Details LastModified Time Do you use any [...] Problems N Vascular Disease N Heart Attack ([place]) N Gastrointestinal Disease N Cholesterol Y Diabetes [...] ICD10 Code Diagnosis IMO Codes Diagnosis Note [id number] JAIME Parikh 2nd floor [address] [place] [place] [address] 02/16/2025 09:20:34 02/25/2025 12:37:32 Primary gonarthrosis, bilateral 595237184 M17.0 [id number] Pain of bi lateral knee regions [id number] 60176 M25.561 M25.562 [id number] Health Concerns Section Related Observation LastModified by Organization Detai ls LastModified Time None Recorded Concern Status LastModified by Organization Details LastModified Time None Recorded Payers Encounter Date Sequence Insurance Name Policy Number Policy Collado Covered Member ID Collado Member ID Guarantor Name 02/16/2025 1 [facility] (MEDICARE REPLACEMENT/A DVANTAGE - HMO) Yuliet Underwood [id number] Yuliet Underwood OBGyn Episode No OBEpisode recorded.
--- OUTSIDE RECORDS SUMMARY | 2025-03-17 18:35 | XMS_ITS | Encounter Summary ---
Author Organization [employer] Address [address] [place] [address] Care Team Providers Care Proposal Engineer Name Role Phone Qamar Mittal CNP Primary Care Provider [phone] Reason for Visit * Reason Onset Date Comments Med Refill 03/12/2024 Encounter Details Date Type Department Care Team ([facility] Contact Info) Description 03/12/2024 Telephone [facility] & PEDS [address] [place], [place] [phone] Daiana Trevino MD [address] [place] [address] Med Refill Social History Tobacco Use Types [...] 100 UNIT/ML pen To be sent to: [facility] - [address] documented in this encounter Plan of Treatment Upcoming Encounters Date Type Department Care Team ([facility] st Contact Info) Description 03/23/2025 3:00 PM EST Office Visit [facility] [address] [place] [address] Luis Miguel Delatorre DMD [address] [place] [address] 04/21/2025 3:15 PM EST Office Visit [facility] MED [facility] PEDS [address] [place] [address] Qamar Mittal, LEILA [address] [place] [address] documented as of this encounter Visit Diagnoses Not on filedocumented in this encounter Additional Health Concerns Assessment Noted Time PHQ-9 Depression Total Score: 5 06/20/19 24 9:37 AM EST documented as of this encounter Care Teams Proposal Engineer Relationship Specialty Start Date End Date Qamar Mittal CNP [address] [place] [address] PCP - General Family Medicine 02/04/25 documented as of this encounter
--- OUTSIDE RECORDS SUMMARY | 2025-03-17 18:35 | XMS_ITS | Encounter Summary ---
Author Organization [employer] [facility] Address [address] [place] [address] 7 [place] [address] Care Team Providers Care Boiler Testing Technician Name Role Phone Qamar Mittal CNP Primary Care Provider [phone] [phone] Encounter Details Date Type Department Care Team (Late st Contact Info) Description 08/18/2022 Orders Only [facility] MED & PEDS [address] [place] [address] Melanie Henson LPN Social History Tobacco Use [...] Description 03/23/2025 3:00 PM EST Office Visit [facility] [address] [place] [address] Luis Miguel Delatorre, JEFERSON [address] [place] [address] 04/21/2025 3:15 PM EST Office Visit [facility] MED & PEDS [address] [place] [address] Qamar Mittal CNP [address] [place] [address] documented as of this encounter Visit Diagnoses Not on filedocumented in this encounter Care Teams Boiler Testing Technician Relationship Specialty Start Date End Date Qamar Mittal CNP [address] [facility] [address] PCP - General Family Medicine 02/04/25 documented as of this encounter
--- OUTSIDE RECORDS SUMMARY | 2025-03-17 18:35 | XMS_ITS | Encounter Summary ---
Author Organization [employer] Address [address] 7t [place] [address] Care Team Providers Care Geophysical Observer Name Role Phone Qamar Mittal CNP Primary Care Provider [phone] Reason for Visit * Reason Onset Date Comments Referral 03/01/2023 Encounter Details Date Type Department Care Team ([facility] st Contact Info) Description 03/01/2023 Telephone [facility] [address] [place] [address] Daiana Trevino MD [address] [place] [address] Referral Social History Tobacco Use Types Packs/Day [...] EST Tc from pt requesting renew on [facility] referral, pt have an appt today at 3:00PM forher Cortizone shot but was advise by office referral is . documented in this encounter Plan of Treatment Upcoming Encounters Date Type Department Care Team (Late st Contact Info) Description 03/23/2025 3:00 PM EST Office Visit [facility] [address] [place] [address] Luis Miguel Delatorre, DMD [address] [place] [address] 04/21/2025 3:15 PM EST Office Visit [facility] MED [facility] PEDS [address] [place] [address] Qamar Mittal CNP [address] [place] [address] documented as of this encounter Visit Diagnoses Not on filedocumented in this encounter Care Teams Geophysical Observer Relationship Specialty Start Date End Date Qamar Mittal CNP [address] [place] [address] PCP - General Family Medicine 02/04/25 documented as of this encounter
== END 2025-03-17 15:59 | disposition home or self-care (01) ==
LOC: HO.HWS 14:49
PROVIDERS: PCP Student in an Organized Health Care Education/Training Program; Visit Provider Obstetrics & Gynecology
DX: R93.5 Abnormal findings on diagnostic imaging of other abdominal regions, including retroperitoneum (principal)
CPT/HCPCS: 99213

== ENCOUNTER → 2025-03-17 14:48 | Outpatient (BNVA) | payer OTHER, SELFPAY | PROVIDERS: PCP Student in an Organized Health Care Education/Training Program; Visit Provider Obstetrics & Gynecology | DX: R93.5 Abnormal findings on diagnostic imaging of other abdominal regions, including retroperitoneum (principal); Z90.721 Acquired absence of ovaries, unilateral | CPT/HCPCS: 99212 ==

== ENCOUNTER 2025-04-08 14:06 | Outpatient (AMB) | payer OTHER, SELFPAY ==
--- NOTE | 2025-04-08 14:59 | AM.OFFVISNUR ---
Intake Visit Reasons: H Pylori BT. HOLD PPI. Intake Note: Pt presents for H Pylori BT. Protocols reviewed with pt and confirmed to be followed. Pt advised of instructions for the test and began testing at 1510. Testing was concluded at 1525. No questions or additional concerns per pt at the end of testing. Advised pt that we will contact them with results when they are obtained. Phlebotomist Associate Required: No Accompanied by: Self / Same As Patient Allergies Kuxupyg-HXY-ZkC Reductase Inhibitor (TMDJJTW-NNI-JCF REDUCTASE INHIBITOR) Allergy (Severe, Verified 03/17/25 15:29) SEVERE DIARRHEA Nursing Note Pt presents for H Pylori BT. Protocols reviewed with pt and confirmed to be followed. Pt advised of instructions for the test and began testing at 1510. Testing was concluded at 1525. No questions or additional concerns per pt at the end of testing. Advised pt that we will contact them with results when they are obtained. Assessment & Plan Assessment & Plan (1) Erosive gastritis: Code(s): K29.60 - Other gastritis without bleeding Category: Medical Coding Level of Care Code Established Pt Procedure Only Patient Type Established Diagnoses Erosive gastritis K29.60
--- OUTSIDE RECORDS SUMMARY | 2025-04-08 18:52 | XMS_ITS | Encounter Summary ---
Author Organization [employer] Address [address] [place] [address] Care Team Providers Care Lambskin Trimmer Name Role Phone Qamar Mittal CNP Primary Care Provider [phone] [phone] Reason for Visit * Reason Comments Med Refill Encounter Details Date Type Department Care Team ([facility] Contact Info) Description 02/07/2025 Refill [facility] MED & PEDS [address] [place], [place] [phone] Daiana Trevino MD [address] [place], [place] [phone] Social History Tobacco Use Types Packs/Day Years [...] Care Team (Late st Contact Info) Description 04/10/2025 2:00 PM EST Office Visit [facility] MED & PEDS [address] [place] [address] Qamar Mittal CNP [address] [place] [address] 04/21/2025 3:15 PM EST Office Visit [facility] MED & PEDS [address] [place] [address] Qamar Mittal CNP [address] [place] [address] documented as of this encounter Visit Diagnoses Not on filedocumented in this encounter Additional Health Concerns Assessment Noted Time PHQ-9 Depression Total Score: 0 12/30/19 11:36 AM EDT documented as of this encounter Care Teams Lambskin Trimmer Relationship Specialty Start Date End Date Qamar Mittal CNP [address] [place] [address] PCP - General Family Medicine 02/04/25 documented as of this encounter
--- OUTSIDE RECORDS SUMMARY | 2025-04-08 18:53 | XMS_ITS | Continuity of Care Document ---
Author Organization KATHYA - [facility], ZHANG Sa[address]ia 2nd floor Address [address] [place] [address] Assessment Encounter Date Assessment Date Assessment LastModified [...] of continued conservative management versus surgical management. [email or web address] Not available 02/15/2025 19:44:57 Plan of Treatment [...] [facility], [address], [address], [place], [address], 02/25/2025 12:37:32 Medication Orders None recorded. Patient TargetsNo targets recorded. Patient InstructionsNo instructions recorded. Reason for Referral None Reported. Results Created Date Observation Date Name Description Value Unit Range Abnormal Flag Note LastModifiedBy Organization Detail LastModifiedTime 02/17/2002/16/2025 XR, knee, 4 or more view http:/ [email or web address] ?Encry pted=s hAaTro YD8dLq bEUv6g %2BXZw aYqtaq 0bqfl% 2Fg9IQ a4ajBk vP9nXo QUaueC m3YtLR FvZlgJ JJ8mAn HZtai3 7q4887 AC0KlY nmGU6a iKiQtr MwF INTERFACE [facility] [address], [place], [address], 02/16/2025 09:50:23 02/17/2002/16/2025 XR, knee, 4 or more view http:/ [email or web address] ?Encry pted=s hAaTro YD8dLq bEUv6g %2BXZw aYqtaq 0bqfl% 2Fg9IQ a4ajBk vP9nXo QUaueC m3YtLR FvZlgJ JJ8mAn HZtai3 7r0271 AC0KlY nmGU6a iKiQtr MwF INTERFACE [facility] [address], [place], [address], 02/16/2025 09:50:25 Result Notes Documentation Provider Name and Address Organization Details Recorded Time Xr, Knee, 4 Or More View : [email or web address] Encrypted=ewUoFtyPG3eQdrQ Uv6g%6CRLbrQvoie2tslc%2Fg 2CZp1fiFkgU7sOgNXjosJs1Tk UIYfDgbLPS0oPhCFabh36e232 2YH5JfQlzVK1ppUoOwgTrK Not Available [facility] 02/16/2025 09:50: 24 Xr, Knee, 4 Or More View : [email or web address] Encrypted=qiQvRfaSZ4rFveU Uv6g%5WIIyvXhjqe1bslo%2Fg 4MSl0gkZixJ2fOiDIdguPg6Eo TLEbOykDTP6gRdTThei84i974 0VQ7WwNjpRN1bnCkQroRjJ Not Available [facility] 02/16/2025 09:50: 25 Problems Name Problem SNOMED Code Status Onset Date Resolution Date Notes Provider Name and Address Organization Details Recorded Time Pain of bilateral knee regions 91962847634205 2 Active 2024 ELFEGO LEI [facility] 09:39:45 Problem Notes None recorded. Procedures Surgical History Date Name Laterality Status Provider Name and Address Organization Details Recorded Time 02/16/2025 JZKNEE INJ Frankie completed Chi Fierro PA-C [address] [facility], [place], [address], [facility] 02/15/2025 19:44:52 10/30/2024 JZKNEE INJ Frankie completed Chi Fierro PA-C [address] [facility], [place], [address], [facility] 10/29/2024 14:59:39 06/16/2024 JZKNEE INJ Frankie completed Chi Fierro PA-C [address], [place], [address], [facility] 06/16/2024 08:05:41 06/09/2024 JZKNEE INJ Frankie cancelled Chi Fierro PA-C [address], [place], [address], [facility] 06/09/2024 12:48:39 03/06/2024 JZKNEE INJ Frankie completed Chi Fierro PA-C [address], [place], [address], [facility] 03/05/2024 14:36:22 12/04/2023 JZKNEE INJ Frankie completed Chi Fierro PA-C [address], [place], [address], [facility] 12/04/2023 08:17:20 09/06/2023 Sports Knee 4&1 completed Chi Fierro PA-C [address], [place], [address], [facility] 09/06/2023 12:35:54 Imaging Results [...] Updated DateTime 02/16/2025 154.94 cm 37 kg/m2 87990.1 g KAYLIA L'HEUREUX [facility] 02/16/2025 09:37:43 Social History Question Answer Notes LastModified by RPO Details LastModified Time Tobacco Smoking Status Never Smoker ELFEGO L'HEUREUX marcelino [facility] 07/11/2023 15:03:03 What Is Your Relationship Status? Single Information not available 07/11/2023 Sex: Unknown Functional Status Question Answer Note LastModified by RPO Details LastModified Time Do you use any [...] Anemia N Vascular Disease N Heart Attack ([place]) N Gastrointestinal Disease N Cholesterol Y Diabetes [...] ICD10 Code Diagnosis IMO Codes Diagnosis Note [id number] JAIME Parikh 2nd floor [address] [facility] [place] [address] 02/16/2025 09:20:34 02/25/2025 12:37:32 Primary gonarthrosis, bilateral 178799824 M17.0 [id number] Pain of bi lateral knee regions [id number] 55053 M25.561 M25.562 [id number] Health Concerns Section Related Observation LastModified by Organization Detai ls LastModified Time None Recorded Concern Status LastModified by Organization Details LastModified Time None Recorded Payers Encounter Date Sequence Insurance Name Policy Number Policy Collado Covered Member ID Collado Member ID Guarantor Name 02/16/2025 1 [facility] (MEDICARE REPLACEMENT/A DVANTAGE - HMO) Yuliet Underwood [id number] Yuliet Underwood OBGyn Episode No OBEpisode recorded.
--- OUTSIDE RECORDS SUMMARY | 2025-04-08 18:53 | XMS_ITS | Encounter Summary ---
Author Organization [facility] Address [address] [place] [address] 7 [place] [address] Care Team Providers Care Structural Ironworker Name Role Phone Qamar Mittal CNP Primary Care Provider +1 [phone] Encounter Details Date Type Department Care Team (Latest Contact Info) Description 01/02/2020 Abstract [facility] CONVERSIONS Dental, Provider, DDS Social History [...] Upcoming Encounters Date Type Department Care Team ( st Contact Info) Description 04/10/2025 2:00 PM EST Office Visit [facility] MED & PEDS [address] [place] [address] Qamar Mittal CNP [address] [place] [address] 04/21/2025 3:15 PM EST Office Visit [facility] MED & PEDS [address] [place] [address] Qamar Mittal CNP [address] [place] [address] documented as of this encounter Visit Diagnoses Not on filedocumented in this encounter Care Teams Structural Ironworker Relationship Specialty Start Date End Date Qamar Mittal CNP [address] [place] [address] PCP - General Family Medicine 02/04/25 documented as of this encounter
--- OUTSIDE RECORDS SUMMARY | 2025-04-08 18:53 | XMS_ITS | Encounter Summary ---
Author Organization [employer] [facility] Address [address] [place] [address] 7 [place] [address] Care Team Providers Care Director Of Brand Marketing Name Role Phone Qamar Mittal CNP Primary Care Provider +1 [phone] Encounter Details Date Type Department Care Team (Late st Contact Info) Description 12/27/2022 Orders Only [facility] MED & PEDS [address] [place] [address] Shannen Kerr LPN Social History Tobacco Use [...] Description 04/10/2025 2:00 PM EST Office Visit [facility] MED & PEDS [address] [place] [address] Qamar Mittal CNP [address] [place] [address] 04/21/2025 3:15 PM EST Office Visit [facility] MED & PEDS [address] [place] [address] Qamar Mittal CNP [address] [place] [address] documented as of this encounter Visit Diagnoses Not on filedocumented in this encounter Care Teams Director Of Brand Marketing Relationship Specialty Start Date End Date Qamar Mittal CNP 505 [place] [address] PCP - General Family Medicine 02/04/25 documented as of this encounter
--- OUTSIDE RECORDS SUMMARY | 2025-04-08 18:53 | XMS_ITS | Encounter Summary ---
Author Organization [facility] Address [address] [place] [address] 7 [place] [address] Care Team Providers Care Building Operator Name Role Phone Qamar Mittal CNP Primary Care Provider +1 [phone] Encounter Details Date Type Department Care Team (Late st Contact Info) Description 02/27/2023 Orders Only [facility] MED & PEDS [address] [place] [address] Shannen Kerr LPN Social History Tobacco Use [...] Description 04/10/2025 2:00 PM EST Office Visit [facility] MED & PEDS [address] [place] [address] Qamar Mittal CNP [address] [place] [address] 04/21/2025 3:15 PM EST Office Visit [facility] MED & PEDS [address] [place] [address] Qamar Mittal CNP [address] [place] [address] documented as of this encounter Visit Diagnoses Not on filedocumented in this encounter Care Teams Building Operator Relationship Specialty Start Date End Date Qamar Mittal CNP 505 [place] [address] PCP - General Family Medicine 02/04/25 documented as of this encounter
--- OUTSIDE RECORDS SUMMARY | 2025-04-08 18:53 | XMS_ITS | Encounter Summary ---
Author Organization [facility] Address [address] [place] [address] 7 [place] [address] Care Team Providers Care Machine Operator Slitter Technician Name Role Phone Qamar Mittal CNP Primary Care Provider +1 [phone] Encounter Details Date Type Department Care Team (Late st Contact Info) Description 08/18/2022 Orders Only [facility] MED & PEDS [address] [place] [address] Melanie Henson LPN Social History Tobacco Use [...] Description 04/10/2025 2:00 PM EST Office Visit [facility] MED & PEDS [address] [place] [address] Qamar Mittal CNP [address] [place] [address] 04/21/2025 3:15 PM EST Office Visit [facility] MED & PEDS [address] [place] [address] Qamar Mittal CNP [address] [place] [address] documented as of this encounter Visit Diagnoses Not on filedocumented in this encounter Care Teams Machine Operator Slitter Technician Relationship Specialty Start Date End Date Qamar Mittal CNP [address] [place], [place] [address] [address] PCP - General Family Medicine 02/04/25 documented as of this encounter
--- OUTSIDE RECORDS SUMMARY | 2025-04-08 18:53 | XMS_ITS | Encounter Summary ---
Author Organization [employer] Address [address] [facility] 7t [place] [address] Care Team Providers Care Window Trimmer Apprentice Name Role Phone Qamar Mittal CNP Primary Care Provider +1 [phone] Reason for Visit * Reason Onset Date Comments chart prep 04/08/2025 Encounter Details Date Type Department Care Team ([facility] Contact Info) Description 04/08/2025 Telephone [facility] MED & PEDS [address] [place], [place] [id number] Qamar Mittal CNP [address] [place] [address] chart prep Social History Tobacco Use Types Packs/Day Years [...] encounter Miscellaneous Notes * Telephone Encounter - Roselyn Stern [place] - 04/08/2025 3:56 PM EST Chart Prep Labs: not applicable Images: not applicable Referrals: not applicable Vaccines due: Flu, RSV, and Zoster Screenings: eye exam Overdue care gaps: Glucose documented in this encounter Plan of Treatment Upcoming Encounters Date Type Department Care Team (Late st Contact Info) Description 04/10/2025 2:00 PM EST Office Visit [facility] MED & PEDS [address] [place] [address] Qamar Mittal CNP [address] [place] [address] 04/21/2025 3:15 PM EST Office Visit [facility] MED & PEDS [address] [place] [address] Qamar Mittal CNP [address] [place] [address] documented as of this encounter Goals Goal Patient Goal Type Associated Problems Recent Progress Patient-Stated? Author Help patients manage their type 2 diabetes Care Plan Help patients manage their type 2 diabetes No Luis Miguel Delatorre, JEFERSON Weekly blood pressure task Care Plan Weekly blood pressure task No Luis Miguel Delatorre DMD Help patients manage their type 2 diabetes Care Plan Help patients manage their type 2 diabetes No Luis Miguel Delatorre DMD Patient has chronic kidney disease Care Plan Patient has chronic kidney disease No Luis Miguel Delatorre DMD Weekly blood pressure task Care Plan Weekly blood pressure task No Luis Miguel Delatorre DMD Patient has chronic kidney disease Care Plan Patient has chronic kidney disease No Luis Miguel Delatorre DMD Weekly blood pressure task Care Plan Weekly blood pressure task No Amelia Mina Weekly blood pressure task Care Plan Weekly blood pressure task No Aston Minassenia Patient has chronic kidney disease Care Plan Patient has chronic kidney disease No Aston Minassenia Patient has chronic kidney disease Care Plan Patient has chronic kidney disease No Aston Minassenia Weekly blood pressure task Care Plan Weekly blood pressure task No Agueda Gomeza, PharmD Weekly blood pressure task Care Plan Weekly blood pressure task No Agueda Gomeza, PharmD Patient has chronic kidney disease Care Plan Patient has chronic kidney disease No Agueda Goemza, PharmD Patient has chronic kidney disease Care Plan Patient has chronic kidney disease No Agueda Gomeza, PharmD Weekly blood pressure task Care Plan Weekly blood pressure task No GomezGonzalesha Weekly blood pressure task Care Plan Weekly blood pressure task No Chevy Gomezysha Patient has chronic kidney disease Care Plan Patient has chronic kidney disease No Gomez Jaysha Patient has chronic kidney disease Care Plan Patient has chronic kidney disease No Gomez Jaysha Weekly blood pressure task Care Plan Weekly blood pressure task No Agueda Gomeza, PharmD Weekly blood pressure task Care Plan Weekly blood pressure task No Agueda Gomeza, PharmD Patient has chronic kidney disease Care Plan Patient has chronic kidney disease No Jason Rose, PharmD Patient has chronic kidney disease Care Plan Patient has chronic kidney disease No Agueda Gomeza, PharmD Weekly blood pressure task Care Plan Weekly blood pressure task No Roselyn Stern [place] Weekly blood pressure task Care Plan Weekly blood pressure task No Roselyn Stern [place] Patient has chronic kidney disease Care Plan Patient has chronic kidney disease No Roselyn Stern [place] Patient has chronic kidney disease Care Plan Patient has chronic kidney disease No Roselyn Stern MA Weekly blood pressure task Care Plan Weekly blood pressure task No Roselyn Stern MA Weekly blood pressure task Care Plan Weekly blood pressure task No Roselyn Stern [place] Patient has chronic kidney disease Care Plan Patient has chronic kidney disease No Roselyn Stern [place] Patient has chronic kidney disease Care Plan Patient has chronic kidney disease No Roselyn Stern [place] documented as of this encounter Visit Diagnoses Not on filedocumented in this encounter Additional Health Concerns Active Problems Noted Date Diagnosed Date Help patients manage their type 2 diabetes 03/09 Weekly blood pressure task 03/09/2025 Help patients manage their type 2 diabetes 03/09 Patient has chronic kidney disease 03/09/2025 Weekly blood pressure task 03/09/2025 Patient has chronic kidney disease 03/09/2025 Weekly blood pressure task 03/23/2025 Weekly blood pressure task 03/23/2025 Patient has chronic kidney disease 03/23/2025 Patient has chronic kidney disease 03/23/2025 Weekly blood pressure task 03/25/2025 Weekly blood pressure task 03/25/2025 Patient has chronic kidney disease 03/25/2025 Patient has chronic kidney disease 03/25/2025 Weekly blood pressure task 03/25/2025 Weekly blood pressure task 03/25/2025 Patient has chronic kidney disease 03/25/2025 Patient has chronic kidney disease 03/25/2025 Weekly blood pressure task 03/25/2025 Weekly blood pressure task 03/25/2025 Patient has chronic kidney disease 03/25/2025 Patient has chronic kidney disease 03/25/2025 Weekly blood pressure task 04/08/2025 Weekly blood pressure task 04/08/2025 Patient has chronic kidney disease 04/08/2025 Patient has chronic kidney disease 04/08/2025 Weekly blood pressure task 04/08/2025 Weekly blood pressure task 04/08/2025 Patient has chronic kidney disease 04/08/2025 Patient has chronic kidney disease 04/08/2025 Assessment Noted Time PHQ-9 Depression Total Score: 0 12/30/19 11:36 AM EDT documented as of this encounter Care Teams Window Trimmer Apprentice Relationship Specialty Start Date End Date Qamar Mittal CNP [address] [place] [address] PCP - General Family Medicine 02/04/25 documented as of this encounter
--- OUTSIDE RECORDS SUMMARY | 2025-04-08 18:53 | XMS_ITS | Encounter Summary ---
Author Organization [employer] Address [address] [facility] 7t [place] [address] Care Team Providers Care Woodyard Operator Name Role Phone Kyrie Taykarlenehugo LEILA Primary Care Provider [phone] [phone] Reason for Visit * Reason Onset Date Comments Appointment Request 04/05/2023 Encounter Details Date Type Department Care Team ([facility] Contact Info) Description 04/05/2023 Telephone [facility] MEDICINE [address] [place], [place] [phone] Daiana Trevino MD [address] [place] [address] Appointment Request Social History Tobacco Use Types [...] - 04/05/2023 2:46 PM EST Tc from [place] with [facility] insurance requesting a [place] appt for program Please contact pt @ [phone] documented in this encounter Plan of Treatment Upcoming Encounters Date Type Department Care Team ([facility] Contact Info) Description 04/10/2025 2:00 PM EST Office Visit [facility] MED & PEDS [address] [place] [address] Qamar Mittal CNP [address] [place] [address] 04/21/2025 3:15 PM EST Office Visit [facility] MED & PEDS [address] [facility] [place] [address] Qamar Mittal CNP [address] [facility] [place] [address] documented as of this encounter Visit Diagnoses Not on filedocumented in this encounter Care Teams Woodyard Operator Relationship Specialty Start Date End Date Qamar Mittal CNP [address] [place] [address] PCP - General Family Medicine 02/04/25 documented as of this encounter
--- OUTSIDE RECORDS SUMMARY | 2025-04-08 18:53 | XMS_ITS | Clinical Summary ---
Author Organization [employer] Address [address] [place] [address] [address] [place] [address] Care Team Providers Care Gem Technician Name Role Phone Qamar Mittal CNP Primary Care Provider [phone] Allergies Active Allergy Reactions Criticality Noted Date Comments Statins High 03/10/2025 Other Reaction(s): SEVERE DIARRHEA Medications fluticasone (Flonase) 50 MCG/ACT nasal spray INHALE ONE OR TWO SPRAYS IN EACH NOSTRIL DAILY NEEDED 16 g 3 023 Active insulin pen needle (UltiCare Short Pen Helen) 31G X 8 mm miscIndicatio ns:Type 2 [...] ONE TABLET EVERY EVENING 90 tablet 025 Active acetaminophen (Tylenol) 325 MG tablet TAKE 3 TABLETS BY MOUTH EVERY 6 HOURS Active Aspirin Low Dose 81 MG chewable tablet CHEW ONE TABLET EVERY EVENING 30 tablet 11 025 Active omega-3 acid ethyl esters (Lovaza) 1 g capsule TAKE ONE CAPSULE IN THE MORNING AND EVENING 60 capsule 11 Active Blood Glucose Monitoring Suppl (ONE TOUCH ULTRA 2) w/Device kitIndication s:Type 2 diabetes mellitus without complication, with long-term current use of insulin ([facility]) USE TO TEST BLOOD SUGAR ONCE A DAY 1 kit Active Alcohol Swabs (Alcohol Prep) 70 % pads USE FIVE TIMES DAILY 100 each 11 Active glucose blood (Accu-Chek Guide Test) test stripIndicati ons:Type 2 diabetes mellitus without complication, with long-term current use of insulin ([facility]) Check sugars twice daily 100 each 11 025 2025 Active Blood Glucose Monitoring Suppl (Accu-Chek Guide) w/Device kitIndication s:Type 2 diabetes mellitus without complication, with long-term current use of insulin ([facility]) Check sugars twice daily 1 kit 3 Active Accu-Chek Softclix Lancets lancetsIndica tions:Type 2 diabetes mellitus without complication, with long-term current use of insulin ([facility]) Use as instructed 100 each 12 025 2025 Active triamterene-h ydroCHLOROthi azide (Dyazide) 37.5-25 MG capsule TAKE ONE CAPSULE EVERY MORNING 30 capsule 11 Active sertraline (Zoloft) 25 MG tablet TAKE ONE TABLET EVERY MORNING 30 tablet 3 Active furosemide (Lasix) 20 MG tablet TAKE ONE TABLET EVERY MORNING 30 tablet 3 5 2:54 PM EST Active Tirzepatide (Mounjaro) 2.5 MG/0.5ML solution auto-injector Indications:T ype 2 diabetes mellitus without complication, with long-term current use of insulin ([facility]) Inject 2.5 mg under the skin 1 (one) time per week. 2 mL Active dapagliflozin (Farxiga) 10 MGIndications :Type 2 diabetes mellitus without complication, with long-term current use of insulin ([facility]),Stage 4 chronic kidney disease (CMS/HCC) ([facility]) Take 1 tablet (10 mg) by mouth Once per day. 30 tablet 11 5 2:54 PM EST 6 Active loratadine (Claritin) 10 MG tablet TAKE ONE TABLET EVERY EVENING 30 tablet 5 Active metFORMIN XR (Glucophage-X R) 500 MG 24 hr tablet Take 1 tablet by mouth 2 times daily. Active rosuvastatin (Crestor) 20 MG tablet Take 1 tablet by mouth Once per day. Active sucralfate (Carafate) 1 g tablet Take 1 g by mouth before breakfast and before evening meal. Active ezetimibe (Zetia) 10 MG tablet Take 1 tablet by mouth Once per day. Active insulin glargine (Lantus SoloStar) 100 UNIT/ML penIndication s:Type 2 diabetes mellitus without complication, without long-term current use of insulin ([facility]) INJECT 35 UNITS SUBCUTANEOUSLY EVERY NIGHT AT BEDTIME 15 mL 5 3:06 PM EST Active gemfibrozil (Lopid) 600 MG tablet Take 600 mg by mouth. Active loratadine (Claritin) 10 MG tablet TAKE ONE TABLET EVERY EVENING 30 tablet 5 025 2024 Discontinued insulin glargine (Lantus SoloStar) 100 UNIT/ML penIndication s:Type 2 diabetes mellitus without complication, without long-term current use of insulin ([facility]) INJECT 35 UNITS SUBCUTANEOUSLY AT BEDTIME 15 mL 5 4:04 PM EST 2024 Discontinued gemfibrozil (Lopid) 600 MG tablet TAKE ONE TABLET IN THE MORNING AND EVENING 60 tablet 11 025 2024 Discontinued(M ed list cleanup (will not trigger notification to Pharmacy)) metFORMIN (Glucophage) 1000 MG tabletIndicat ions:Type 2 diabetes mellitus without complication, without long-term current use of insulin (HCC) TAKE ONE TABLET IN THE MORNING AND EVENING 180 tablet 1 025 2024 Discontinued(M ed list cleanup (will not trigger notification to Pharmacy)) glipiZIDE (Glucotrol) 10 MG tablet TAKE TWO TABLETS TWICE DAILY IN THE MORNING AND EVENING 120 tablet 11 025 2024 Discontinued(M ed list cleanup (will not trigger notification to Pharmacy)) Active Problems Problem Noted Date Diagnosed Date Abnormal ultrasound of endometrium 04/08/2025 Acute epigastric pain 04/08/2025 Acute hyperkalemia 04/08/2025 GALEN (acute kidney injury) 04/08/2025 Class 2 obesity 04/08/2025 Obesity (BMI 35.0-39.9 without comorbidity) 03/23 Overview (04/08/2025): She is grossly obese with a round face. TRYING TO LOSE WEIGHT SLOWLY, HAS LOST 3 LB SINCE LAST VISIT. Complex cyst of uterine adnexa 04/08/2025 Dyspnea on exertion 04/08/2025 Overview (04/08/2025): Dyspnea on exertion is probably due to restrictive pulmonary disorder, which in turn is due to abdominal obesity. I do not think she has any obstructive component. Pulmonary function test confirms presence of mild to moderate restrictive pulmonary disorder. Patient has been advised to do deep breathing exercises 3 times a day. Erosive gastritis 04/08/2025 Lichenoid actinic keratosis 04/08/2025 Muscle strain 04/08/2025 Overview (04/08/2025): muscle strain right lower back from twisting and lifting Myoma 04/08/2025 Overview (04/08/2025): Possible polyp Thickened endometrium by ultrasound Postmenopausal bleeding 04/08/2025 Overview (04/08/2025): Endometrial polyp on EMB pathology EMB possible mucinous endometrial metaplasia Renal cyst 04/08/2025 Restrictive lung disease 04/08/2025 Overview (04/08/2025): Pulmonary function test shows moderate degree of restrictive pulmonary disorder. FVC= 67 % DLCO 63 % NO OBSTRUCTIVE AIRWAY DISORDER. This is due to her gross obesity. Explained thoroughly about her restrictive disorder( small lungs) TX: Weight reduction, explained, Deep breathing exercises explained. Screening for colon cancer 04/08/2025 Skin tag 04/08/2025 Snoring 04/08/2025 Somnolence, daytime 04/08/2025 Uterine myoma 04/08/2025 Hyperlipidemia associated with type 2 diabetes m ellitus 04/08/2025 Severe obesity (CMS/HCC) 04/08/2025 Diabetes 04/08/2025 Hypoglycemia 04/08/2025 Pain in both knees 02/16/2025 Constipation 08/10/2024 Depression 08/10/2024 Thickened endometrium 08/10/2024 Tubo-ovarian abscess 08/10/2024 Overview (04/08/2025): Status post admission, inpatient parenteral antibiotic treatment, IR abscess drainage and completion of p.o. antibiotics CT 09/29/2024 near complete resolution Hypertension 08/10/2024 Obstructive sleep apnea syndrome 08/10/2024 Overview (04/08/2025): Confirmed case of obstructive sleep apnea/nocturnal hypoxemia. She is being treated with CPAP, 11 cm, fullface mask, plus O2 1 L/minute. Sleeping much better and denies any. Daytime sleepiness She is very compliant, and encouraged to keep on using the CPAP every night. Type 2 diabetes mellitus with unspecified compli cations 08/10/2024 Obesity, morbid 05/28/2024 Diverticulosis 06/20/2023 Other sleep [...] Encounters Date Type Department Care Team Description 04/08/2025 Telephone [facility] MED [facility] PEDS [address] [place] [address] Qamar Mittal CNP chart prep 04/01/2025 Refill [facility] [address] [place] [address] Kim Patterson MD Type 2 diabetes mellitus without complication, without long-term current use of insulin ([facility]) 03/25/2025 Patient Outreach [facility] MED[facility] [address] [place] [phone] Qamar Mittal CNP Transition Of Care (Tcm) (HDF scheduled and SDOH screening completed on 10/15/24 ) 03/25/[address] [facility] MED[facility]INE [address] [place] [address] Rose Gomez, PharmD 03/23/2025 3:00 PM EST Office Visit [facility] ADULT DENTAL [address] [place] [address] Luis Miguel Delatorre DMD Denture irritation (Primary Dx) 03/20/2025 Refill [facility] [address] [place] [address] Daiana Trevino MD 03/10/2025 Orders Only GENERIC EXTERNAL DATA DEPARTMENT Provider, Generic External Data 03/09/2025 3:00 PM EST Office Visit [facility] ADULT DENTAL [address] [place] [address] Luis Miguel Delatorre DMD Denture irritation (Primary Dx) 03/05/2025 Orders Only [facility] External Provider, [facility] 02/26/2025 2:00 PM EST Office Visit [facility] ADULT DENTAL [address] [place] [address] Juan Ramon Luis Miguel, DMD Partial edentulism, unspecified edentulism class (Primary Dx); Periodontal disease 02/19/2025 1:00 PM EDT Office Visit [facility] [address] [place] [address] Qamar Mittal CNP Stage 4 chronic kidney disease (CMS/HCC) (HCC) (Primary Dx); Type 2 diabetes mellitus without complication, with long-term current use of insulin (HCC); Encounter for vaccination; Anxiety 02/19/2025 Travel 02/17/2025 Refill [facility] PED[facility] [address] [place] [address] Daiana Trevino MD 02/11/2025 1:00 PM EDT Office Visit [facility] ADULT DENTAL [address] [place] [address] Luis Miguel Delatorre, DMD Partial edentulism, unspecified edentulism class (Primary Dx) 02/11/2025 Patient Outreach [facility] [address] [place] [address] Qamar Mittal CNP Pre-visit Planning (SDOH screening completed on 10/15/24) 02/10/2025 Travel 02/07/2025 Refill [facility] MED [facility] PED[facility] [address] [place] [address] Daiana Trevino MD 02/04/2025 5:40 PM EDT Office Visit [facility] WALK[facility]IN CENTER [address] [place] [address] Selena Rhoades NP Muscle pain (Primary Dx); Hypertriglyceridemi a 02/04/2025 Telephone [facility] [address] [place] [address] Qamar Mittal CNP ICD-10 CODE 02/04/2025 Travel 02/04/2025 Telephone [facility] [address] [place] [address] Whitney Mina MA Chart Prep 02/03/2025 Telephone [facility] [address] [place] [address] Daiana Trevino MD 01/27/2025 2:00 PM EDT Office Visit [facility] ADULT DENTAL [address] [place] [address] Luis Miguel Delatorre DMD Partial edentulism, unspecified edentulism class (Primary Dx) 01/23/2025 Refill [facility] P[facility] [address] [place], [place] [phone] Daiana Trevino MD 01/21/[address] [facility] [address], [place] [phone] Daiana Trevino MD Type 2 diabetes mellitus without complication, with long-term current use of insulin (HCC) 01/13/2025 2:00 PM EDT Office Visit [facility] ADULT DENTAL [address] [place], [place] [phone] Jerry Griffin Partial edentulism, unspecified edentulism class (Primary Dx); Dental calculus 01/07/2025 Travel from Last 3 Months Immunizations Immunization Administration Dates Next Due Influenza, IIV3, injectable 01/28/2014 Influenza, Split (incl. regulo fied surface antigen) 03/26/2013,01/19/2012 Moderna Covid-19 Vaccine 12+ 04/28/2021 Pfizer Covid-19 Vaccine 12+ 02/19/2025, 4,02/22/2023 Pneumococcal [...] Sign Reading Time Taken Comments Blood Pressure 128/72 03/23/2025 3:09 PM EST Pulse 76 02/19/2025 1:07 PM [...] Description 04/10/2025 2:00 PM EST Office Visit [facility] MED [facility] PED[facility] [address] [place] [address] Qamar Mittal CNP [address] [place] [address] 04/21/2025 3:15 PM EST Office Visit [facility]EDS [address] [facility] [place] [address] Qamar Mittal, ELECTRICAL/INSTRUMENT TECHNICIAN [address] [place] [address] Health Maintenance Due Date Last Done Comments [...] 06/25/2024, 11/22/2023, Additional history exists COVID-19 Vaccine (2024- season) 2025 02/19/2025, 01/14/2024, 02/22/2023, Additional history exists SDOH Screening 10/15/2025 10/15/2024 Diabetes: Urine Protein Screening 11/17/2025 11/17/2024 Alcohol/Substance Use Screening 12/29/2025 12/29/2024 Depression Screening 12/29/2025 12/29/2024, 12/30/19 Dental X-Ray: Bitewings 01/14/2026 01/14/20 25, 11/22/2023, 06/02/2021, Additional history exists Lipid Panel 02/06/2026 02/06/2025, 07/11/2024, 03/07/2024, Additional history exists Diabetes: Foot Exam 02/19/2026 02/19/2025, 02/19/2025, 02/19/2025, Additional history exists Tobacco Screening 03/23/2026 03/23/2025 DTaP/Tdap/Td Vaccines (2 - Td or Tdap) [...] 2 diabetes No Luis Miguel Delatorre DMD Weekly blood [...] Plan Weekly blood pressure task No Amelia Mnia Patient has chronic kidney disease Care Plan Patient has chronic kidney disease No Amelia Mina Patient has chronic kidney disease Care Plan Patient has chronic kidney disease No Amelia Mina Weekly blood pressure task Care Plan Weekly blood pressure task No Rose Gomez PharmD Weekly blood pressure task Care Plan Weekly blood pressure task No Rose Gomez PharmD Patient has chronic kidney disease Care Plan Patient has chronic kidney disease No Rose Gomez PharmD Patient has chronic kidney disease Care Plan Patient has chronic kidney disease No Rose Gomez PharmD Weekly blood pressure task Care Plan Weekly blood pressure task No Carmen Gomez Weekly blood pressure task Care Plan Weekly blood pressure task No Carmen Gomez Patient has chronic kidney disease Care Plan Patient has chronic kidney disease No Chevy Gomezysman Patient has chronic kidney disease Care Plan Patient has chronic kidney disease No Carmen Gomez Weekly blood pressure task Care Plan Weekly blood pressure task No Rose Gomez PharmD Weekly blood pressure task Care Plan Weekly blood pressure task No Rose Gomez PharmD Patient has chronic kidney disease Care Plan Patient has chronic kidney disease No Rose Gomez PharmD Patient has chronic kidney disease Care Plan Patient has chronic kidney disease No Rose Gomez PharmD Weekly blood pressure task Care Plan Weekly blood pressure task No Ney SternAm[place], [place] Weekly blood pressure task Care Plan Weekly blood pressure task No Leena [place], [place] Patient has chronic kidney disease Care Plan Patient has chronic kidney disease No Ney [place], [place] Patient has chronic kidney disease Care Plan Patient has chronic kidney disease No Leena [place], [place] Weekly blood pressure task Care Plan Weekly blood pressure task No Leena [place], [place] Weekly blood pressure task Care Plan Weekly blood pressure task No Leena [place], [place] Patient has chronic kidney disease Care Plan Patient has chronic kidney disease No Leena [place], [place] Patient has chronic kidney disease Care Plan Patient has chronic kidney disease No Leena [place], [place] Procedures Procedure Name Priority Date/Time Associated Diagnosis Comments DENTURE FOLLOWUP Routine 03/23/2025 3:00 PM EST Denture irritation GLUCOSE, WHOLE BLOOD Routine 03/10/2025 4:26 PM [...] PM EDT Partial edentulism, unspecified edentulism class ALBUMIN, RANDOM URINE W/CREATININE Routine 11/17/2024 10:03 AM EDT Type 2 diabetes mellitus without complication, with long-term current use of insulin ([facility]) PANORAMIC RADIOGRAPHIC IMAGE Routine 07/09/2024 3:00 PM EDT Periodontal disease Dental caries from Last 3 Months or Most Recently Relevant to Health Maintenance Results * (ABNORMAL) Glucose, Whole Blood (03/10/2025 4:26 PM EST) Only the most recent of2 resultswithin the time period is included. Glucose, Whole Blood 127(H) 60 - 115 mg/dL [facility] Comment:METER #: [id number] 03/10/2025 4:26 PM EST 03/10/2025 5:37 PM EST us Generic External Data Provider LAB BLOOD ORDERAB LES Final Result [facility] [address] [place] [phone] * CT Abdomen Pelvis w/o Contrast (03/10/2025 4:09 PM EST) Anatomical Region Laterality Modality Body, Pelvis, Abdomen Computed T omography 03/10/2025 4:09 PM EST Narrative 03/10/2025 4:47 PM EST [address] [address] [address] Scan Report Signed Patient: Yuliet Underwood MR#: [id number] 992 : 1945 Acct:[id number] Age/Sex: 79 / F ADM Date: 03/10/25 Loc: HO.ED Attending Dr: Ordering Physician: Juana Dougherty Date of Service: 03/10/25 Procedure(s): CT abdomen pelvis wo IV con Accession Number(s): [id number] cc: Juana Dougherty; Daiana Trevino MD Report Number: [id number]: Total DLP = 733.00 mGy-cm Reason for [...] by: Hunter Lazo MD 03/10/2025 04:44 PM [facility] Dictated By: Hunter Lazo MD Signed By: <Electronically signed by Hunter Lazo MD in OV> 03/10/25 1644 DD/ 1609 TD/TT: 03/10/25 1621 Cv Tech: Procedure Note Donotuseinterpreter, Image - 03/10/[address] [address] [address] Scan Report Signed Patient: Everton Underwood#: [id number] : 6Acct:[id number] Age/Sex: 79 / FADM Date: 03/10/25 Loc: HO.ED Attending Dr: Ordering Physician: Juana Dougherty Date of Service: 03/10/25 Procedure(s): CT abdomen pelvis wo IV con Accession Number(s): [id number] cc: Juana Dougherty; Daiana Trevino MD Report Number: [id number]: Total DLP = 733.00 mGy-cm Reason for [...] by: Hunter Lazo MD 03/10/2025 04:44 PM EST Dictated By: Hunter Lazo MD Signed By: <Electronically signed by Hunter Lazo MD in OV> 03/10/25 1644 DD/ 1609 TD/TT: 03/10/25 1621 Cv Tech: [facility] External Provider IMG CT PROCEDURES Final Result * US Pelvis Transvaginal (03/05/2025 1:15 PM EST) Anatomical Region Laterality Modality Pelvis Ultrasound 03/05/2025 1:15 PM EST Narrative 03/05/2025 2:09 PM EST [address] [address] Ultrasound Report Signed Patient: Yuliet Underwood MR#: [id number] : 1945 Acct:[id number] Age/Sex: 79 / F ADM Date: 03/05/25 Loc: HO.US Attending Dr: Clint Damon MD Ordering Physician: Clint Damon MD Date of Service: 03/05/25 Procedure(s): US pelvic and transvaginal Accession Number(s): [id number] cc: Daiana Trevino MD; Clint Damon MD [...] Dov De Guzman MD 03/05/2025 02:06 PM [facility] [place] Dictated By: Dov Munoz MD Signed By: <Electronically signed by Dov Brown MD in OV> 03/05/25 1406 DD/ 1315 TD/TT: 03/05/25 1332 Cv Tech: Procedure Note Donotuseinterpreter, Image - 03/05/[address] [address] Ultrasound Report Signed Patient: Everton Underwood#: [id number] : 6Acct:[id number] Age/Sex: 79 / FADM Date: 03/05/25 Loc: HO.US Attending Dr: Clint Damon MD Ordering Physician: Clint Damon MD Date of Service: 03/05/25 Procedure(s): US pelvic and transvaginal Accession Number(s): [id number] cc: Daiana Trevino MD; Clint Damon MD [...] 03/05/25 1406 DD/ 1315 TD/TT: 03/05/25 1332 Cv Tech: [facility] External Provider IMG US PROCEDURES Final Result * POCT glucose manually resulted (02/19/2025 2:04 PM EDT) Glucose Blood, POC 126 60 - 200 mg/dL QC Media Lot # Comment:[id number] Lot# Expiration Date Comment:05/31/2025 Blood Capillary blood specimen / Unknown 02/19/2025 2:04 PM EDT Result [facility] POINT OF CARE TEST ENTER/ EDIT ORDERABLES Final Result * (ABNORMAL) POCT A1c (02/19/2025 2:03 PM EDT) Hemoglobin A1C 8.3(A) 4.0 - 5.7 % QC Media Lot # Comment:[id number] Lot# Expiration Date Comment:08/14/2026 Blood 02/19/2025 2:03 PM EDT Result [facility] POINT OF CARE TEST ENTER/ EDIT ORDERABLES Final Result * (ABNORMAL) Hemoglobin A1c (02/06/2025 10:20 AM EDT) Hemoglobin A1c 8.6(H) <6.0 % [facility] Comment:Hemoglobin A1C Refer ence Range Adults: 4.8 - 6.0 % Non diabetic: < 6.0 % Goal: < 7.0 %Additional Action Suggested: > 8.0 %Note: Hemoglobin A1c results are invalid for patients with abnormal amounts of HbF. Blood transfusions may impact the HbA1c concentration in the patient sample. Estimated Average Glucose 200 mg/dL [facility] Comment:eAG = Estimated ave rage glucose which is %A1C expressed asaverage glucose, using the formula of the J2Z-SvmnsyuFrdzxte Glucose study (ADAG), Diabetes Care, Vol.31,#8,Nov. 2007 Blood Venous blood specimen / Unknown 02/06/2025 10:20 AM EDT 02/06/2025 2:38 PM EDT Daiana Trevino MD LAB BLOOD ORDERABLES Final Resul t Performing Organization Address [facility] Co de Phone Number [facility] [address] [place] [phone] * Hepatic Function Panel (02/06/2025 10:20 AM EDT) Bilirubin, Total 0.2 0.0 - 1.0 mg/dL [facility] Bilirubin, Direct <0.2 0.0 - 0.5 mg/dL [facility] Aspartate Amino Transferase 29 5 - 31 U/L [facility] Alanine Aminotransferase 11 0 - 31 U/L [facility] Total Protein 7.1 6.5 - 8.0 g/dL [facility] Albumin Level 4.6 3.5 - 5.0 g/dL [facility] Alkaline Phosphatase 48 39 - 117 U/L [facility] Blood Venous blood specimen / Unknown 02/06/2025 10:20 AM EDT 02/06/2025 2:38 PM EDT Daiana Trevino MD LAB BLOOD ORDERABLES Final Resul t Performing Organization Address [facility] de Phone Number [facility] [address] [place] [phone] * (ABNORMAL) Lipid Panel, Standard (02/06/2025 10:20 AM EDT) Triglycerides 430(H) <150 mg/dL [facility] Comment:Slight Lipemia.Jenna able Triglyceride: less than 150 mg/dLBorderline High Triglyceride 150-199 mg/dLHigh Triglyceride: 200-499 mg/dLVery High Triglyceride: greater than or equal to 5OO mg/dL Cholesterol 152 <200 mg/dL [facility] Comment:Desirable Cholestero l: less than 200 mg/dLBorderline High Cholesterol: 200-239 mg/dLHigh Cholesterol: greater than 239 mg/dL LDL Cholesterol Calculated TNP <100 mg/dL [facility] Comment:Unable to calculate the LDL. The formula of Friedwald,Degroot, and Gemma is only valid if the triglycerides areless than 400 mg/dl. HDL Cholesterol 27(L) >40 mg/dL [facility] Comment:Desirable HDL: great er than 40 mg/dL Note: This HDL assay may give artificially low results in patients with liver disease. Blood Venous blood specimen / Unknown 02/06/2025 10:20 AM EDT 02/06/2025 2:38 PM EDT us Daiana Trevino MD LAB BLOOD ORDERABLES Final Resul t [facility] [address] [place] [phone] [phone] * (ABNORMAL) Basic Metabolic Panel (02/06/2025 10:20 AM EDT) Sodium 142 135 - 145 mmol/L [facility] Potassium 4.3 3.3 - 5.1 mmol/L [facility] Chloride 105 96 - 108 mmol/L [facility] Carbon Dioxide 24 22 - 29 mmol/L [facility] Anion Gap 17 12 - 20 [facility] Urea Nitrogen (BUN) 49(H) 9 - 16 mg/dL [facility] Creatinine, Serum 1.79(H) 0.5 - 1.4 mg/dL [facility] Estimated Glomerular Filt Rate 27 [facility] Comment:Chronic Kidney Disea se: Estimated GFR < 60 mL/min/1.83b1Vneege Kidney Disease: Estimated GFR < 15 mL/min/1.73m2 Glucose 152(H) 60 - 115 mg/dL [facility] Calcium 10.5(H) 8.4 - 10.2 mg/dL [facility] Blood Venous blood specimen / Unknown 02/06/2025 10:20 AM EDT 02/06/2025 2:38 PM EDT us Daiana Trevino MD LAB BLOOD ORDERABLES Final Resul t Performing Organization Address [facility] Co de Phone Number [facility] [address] [place] [phone] * (ABNORMAL) Albumin, Random Urine W/Creatinine (11/17/2024 10:03 AM EDT) Creatinine, Urine 115.32 mg/dL [facility] Microalbumin Urine 99.0 mg/L [facility] Microalbum Creatinine Ratio Ur 85.8(H) <30 ug/mg cr [facility] Comment:Albumin/Creatinine R atio Reference Ranges: Normal: < 30 ug/mg creatinine Microalbuminuria: 30 - 300 ug/mg creatinineClinical Albuminuria: > 300 ug/mg creatinine 11/17/2024 10:0 3 AM EDT 11/17/2024 2:53 PM EDT Diaana Trevino MD LAB URINE ORDERABLES Final Resul t Performing Organization Address [facility] Co de Phone Number [facility] [address] [place] [phone] from Last 3 Months or Most [...] 04/08/2025 Patient has chronic kidney disease 04/08/2025 Insurance [facility] D[facility] COMPLETE [facility] Care Teams Gem Technician Relationship Specialty Start Date End Date Qamar Mittal CNP [address] [place] [address] PCP - General Family Medicine 02/04/25
--- OUTSIDE RECORDS SUMMARY | 2025-04-08 18:53 | XMS_ITS | Encounter Summary ---
Author Organization [employer] Address [address] 7t [place] [address] Care Team Providers Care Busser Name Role Phone Qamar Mittal CNP Primary Care Provider +1 [phone] Reason for Visit * Reason Comments Med Refill Encounter Details Date Type Department Care Team ([facility] Contact Info) Description 03/12/2024 Refill [facility] [address] [place], [place] [phone] Daiana Trevino MD [address] [place] [address] Social History Tobacco Use Types Packs/Day Years [...] Description 04/10/2025 2:00 PM EST Office Visit [facility] MED & PEDS [address] [place] [address] Qamar Mittal CNP [address] [place] [address] 04/21/2025 3:15 PM EST Office Visit [facility] MED [facility] P[facility]S [address] [place] [address] Qamar Mittal CNP [address] [place] [address] documented as of this encounter Visit Diagnoses Not on filedocumented in this encounter Additional Health Concerns Assessment Noted Time PHQ-9 Depression Total Score: 5 06/20/19 24 9:37 AM EST documented as of this encounter Care Teams Busser Relationship Specialty Start Date End Date Qamar Mittal CNP [address] [place] [address] PCP - General Family Medicine 02/04/25 documented as of this encounter
--- OUTSIDE RECORDS SUMMARY | 2025-04-08 18:53 | XMS_ITS | Data Portability ---
Author Organization [place] [facility], [facility] Address [address] [place] [address] Assessment Encounter Date Assessment Date Assessment LastModified [...] of continued conservative management versus surgical management. [email or web address] Not available 12/04/2023 15:12:58 03/06/2024 03/06/2024 I [...] of continued conservative management versus surgical management. [email or web address] Not available 03/05/2024 14:36:30 06/16/2024 06/16/2024 I [...] of continued conservative management versus surgical management. [email or web address] Not available 06/16/2024 12:59:53 10/30/2024 10/30/2024 I [...] conservative management versus surgical management. Not available 10/29/2024 14:59:45 02/16/2025 02/16/2025 I [...] of continued conservative management versus surgical management. [email or web address] Not available 02/15/2025 19:44:57 Plan of Treatment [...] knee xrays. rm 211 2024 025 [email or web address] Office, [address], [place], [address], 02/25/2025 12:37:32 Medication Orders None recorded. Patient TargetsNo targets recorded. Patient InstructionsNo instructions recorded. Reason for Referral None Reported. Results Created Date Observation Date Name Description Value Unit Range Abnormal Flag Note LastModifiedBy Organization Detail LastModifiedTime 02/17/2002/16/2025 XR, knee, 4 or more view http:/ [email or web address] ?Encry pted=s hAaTro YD8dLq bEUv6g %2BXZw aYqtaq 0bqfl% 2Fg9IQ a4ajBk vP9nXo QUaueC m3YtLR FvZlgJ JJ8mAn HZtai3 1x3510 AC0KlY nmGU6a iKiQtr MwF INTERFACE [facility] [address], [place], [address], 02/16/2025 09:50:23 02/17/2002/16/2025 XR, knee, 4 or more view http:/ [email or web address] ?Encry pted=s hAaTro YD8dLq bEUv6g %2BXZw aYqtaq 0bqfl% 2Fg9IQ a4ajBk vP9nXo QUaueC m3YtLR FvZlgJ JJ8mAn HZtai3 8e0423 AC0KlY nmGU6a iKiQtr MwF INTERFACE [facility] [address], [place], [address], 02/16/2025 09:50:25 Result Notes Documentation Provider Name and Address Organization Details Recorded Time Xr, Knee, 4 Or More View : [email or web address]? Encrypted=tzGeYfqCE6bNklQ Uv6g%2LUBetGevje2doou%2Fg 0JDl2kzGmtF1lTzBVxjeFd1Px TEKaKhnDCP2wCwGWwlh07q428 4JJ7OvMugOJ4mtSwUcwSnJ Not Available [facility] 02/16/2025 09:50: 24 Xr, Knee, 4 Or More View : [email or web address]? Encrypted=buGaUpzDZ4oUqpP Uv6g%9QSOhdSmchq5bvip%2Fg 2EYx8ivOtbU5kWuOKkaqGt8Or SHNuKdjDQB1uOePFkid00e220 1CR1FwJwtRT2htKdLqhEfM Not Available [facility] 02/16/2025 09:50: 25 Problems Name Problem SNOMED Code Status Onset Date Resolution Date Notes Provider Name and Address Organization Details Recorded Time Pain of bilateral knee regions 22516552565177 2 Active 2024 ELFEGO Arellano'HEURVY benson, [facility] 09:39:45 Problem Notes None recorded. Procedures Surgical History Date Name Laterality Status Provider Name and Address Organization Details Recorded Time 02/16/2025 JZNICHOLASEE INJ Frankie completed Chi Fierro PA-C [address], [place], [address], [facility] [place] [facility] 02/15/2025 19:44:52 10/30/2024 JZKNEE INJ Frankie completed Chi Fierro PA-C [address], [place], [address], [facility] 10/29/2024 14:59:39 06/16/2024 JZKNEE INJ Frankie completed Chi Fierro PA-C [address], [place], [address], [facility] 06/16/2024 08:05:41 06/09/2024 JZKNEE INJ Frankie cancelled Chi Fierro PA-C [address], [place], [address], [facility] 06/09/2024 12:48:39 03/06/2024 JZKNEE INJ Frankie completed Chi Fierro PA-C [address], [place], [address], [facility] 03/05/2024 14:36:22 12/04/2023 JZKNEE INJ Frankie completed Chi Fierro PA-C [address], [place], [address], [facility] 12/04/2023 08:17:20 09/06/2023 Sports Knee 4&1 completed Chi Fierro PA-C [address], [place], [address], [facility] 09/06/2023 12:35:54 Imaging Results [...] Updated DateTime 06/16/2024 154.94 cm 37 kg/m2 95354.1 g KAYLIA L'HEUREUX [place] [facility] [place] [facility] 06/16/2024 12:53:55 Date Recorded Body height Body mass index (BMI) Body weight Provider Name and Address Organization Details Last Updated DateTime 10/30/2024 154.94 cm 37 kg/m2 67343.1 evan Patel [facility] 10/30/2024 10:38:25 Date Recorded Body height Body mass index (BMI) Body weight Provider Name and Address Organization Details Last Updated DateTime 12/04/2023 154.94 cm 37 kg/m2 36112.1 evan KAYLIA L'HEUREUX [facility] 12/04/2023 15:03:01 Date Recorded Body height Body mass index (BMI) Body weight Provider Name and Address Organization Details Last Updated DateTime 02/16/2025 154.94 cm 37 kg/m2 53560.1 g KAYLIA L'HEUREUX [facility] 02/16/2025 09:37:43 Date Recorded Body height Body mass index (BMI) Body weight Provider Name and Address Organization Details Last Updated DateTime 03/06/2024 154.94 cm 37 kg/m2 62475.1 g KAYLIA L'HEUREUX [facility] 03/06/2024 15:47:23 Social History Question Answer Notes LastModified by Organizat ion Details LastModified Time Tobacco Smoking Status Never Smoker EVNAYLIA L'HEUREUX [facility] 07/11/2023 15:03:03 What Is Your Relationship [...] Problems N Vascular Disease N Heart Attack (AL) N Gastrointestinal Disease N Cholesterol Y Diabetes [...] ICD10 Code Diagnosis IMO Codes Diagnosis Note [id number] Chi Fierro PA-C [facility] [address] [place] [address] 07/11/2023 14:38:06 07/12/2023 07:58:16 Bilateral osteoarthritis of knees 4707206376 88706 M17.0 [id number] Chi Fierro PA-C [facility] [address] [place] [address] 09/06/2023 15:40:30 09/27/2023 15:02:46 Bilateral osteoarthritis of knees 7444277475 64694 M17.0 [id number] Chi Fierro PA-C [facility] [address] [place] [address] 12/04/2023 14:49:34 12/28/2023 12:23:49 Bilateral osteoarthritis of knees 6306605819 42364 M17.0 [id number] Chi Fierro PA-C [facility] [address] [place] [address] 03/06/2024 15:41:03 04/07/2024 12:00:28 Primary gonarthrosis, bilateral 802550593 M17.0 6220115 [id number] Chi Fierro PA-C [facility] - [facility] [address] [place] [address] 06/16/2024 12:48:05 06/30/2024 18:45:02 Primary gonarthrosis, bilateral 713363347 M17.0 3032316 [id number] Chi Fierro PA-C [facility] - [facility] [address] [place] [address] 10/30/2024 10:32:46 11/10/2024 11:44:55 Primary gonarthrosis, bilateral 900131710 M17.0 5934196 [id number] Chi Fierro PA-C [facility] - [facility] [address] [place] [address] 02/16/2025 09:20:34 02/25/2025 12:37:32 Primary gonarthrosis, bilateral 902699294 M17.0 [id number] Pain of bi lateral knee regions 2484457035 31141 M25.561 M25.562 [id number] Health Concerns Section Related Observation LastModified by Organization Detai ls LastModified Time None Recorded Concern Status LastModified by Organization Details LastModified Time None Recorded Advance Directives Directive None Recorded Payers Insurance Date Sequence Insurance Name Policy Number Policy Collado Covered Member ID Collado Member ID Guarantor Name 02/25/2025 1 [facility] (MEDICARE REPLACEMENT/A DVANTAGE - HMO) Yuliet Underwood [id number] Yuliet Underwood OBGyn Episode No OBEpisode recorded.
--- OUTSIDE RECORDS SUMMARY | 2025-04-08 18:53 | XMS_ITS | Encounter Summary ---
Author Organization [employer] Address [address] [facility] 7t [place] [address] Care Team Providers Care Customer Service Clerk Name Role Phone Qamar Mittal CNP Primary Care Provider +1 [phone] Reason for Visit * Reason Onset Date Comments Referral 03/01/2023 Encounter Details Date Type Department Care Team ([facility] st Contact Info) Description 03/01/2023 Telephone [facility] MEDICINE [address] [place] [address] Daiana Trevino MD [address] [place] [address] Referral Social History Tobacco Use Types Packs/Day [...] EST Tc from pt requesting renew on [facility] referral, pt have an appt today at 3:00PM forher Cortizone shot but was advise by office referral is . documented in this encounter Plan of Treatment Upcoming Encounters Date Type Department Care Team (Late st Contact Info) Description 04/10/2025 2:00 PM EST Office Visit [facility] MED & PEDS [address] [place] [address] Qamar Mittal CNP [address] [place] [address] 04/21/2025 3:15 PM EST Office Visit [facility] MED [facility] PEDS [address] [place] [address] Qamar Mittal CNP [address] [place] [address] documented as of this encounter Visit Diagnoses Not on filedocumented in this encounter Care Teams Customer Service Clerk Relationship Specialty Start Date End Date Qamar Mittal CNP [address] [place] [address] PCP - General Family Medicine 02/04/25 documented as of this encounter
--- OUTSIDE RECORDS SUMMARY | 2025-04-08 18:53 | XMS_ITS | Encounter Summary ---
Author Organization [employer] Address [address] [place] [address] Care Team Providers Care Hand Presser Name Role Phone Qamar Mittal CNP Primary Care Provider +1 [phone] Reason for Visit * Reason Onset Date Comments Med Refill 03/12/2024 Encounter Details Date Type Department [facility] Description 03/12/2024 Telephone [facility] MED [facility] PEDS [address] [place], [place] [phone] Daiana Trevino MD [address] [place] [address] Med Refill Social History Tobacco Use Types [...] 100 UNIT/ML pen To be sent to: [facility] - [address] documented in this encounter Plan of Treatment Upcoming Encounters Date Type Department Care Team ([facility] st Contact Info) Description 04/10/2025 2:00 PM EST Office Visit [facility] PEDS [address] [place] [address] Qamar Mittal CNP [address] [place] [address] 04/21/2025 3:15 PM EST Office Visit [facility] MED [facility] PEDS [address] [place] [address] Qamar Mittal CNP [address] [place] [address] documented as of this encounter Visit Diagnoses Not on filedocumented in this encounter Additional Health Concerns Assessment Noted Time PHQ-9 Depression Total Score: 5 06/20/19 24 9:37 AM EST documented as of this encounter Care Teams Hand Presser Relationship Specialty Start Date End Date Qamar Mittal CNP [address] [place] [address] PCP - General Family Medicine 02/04/25 documented as of this encounter
--- OUTSIDE RECORDS SUMMARY | 2025-04-08 18:53 | XMS_ITS | Encounter Summary ---
Author Organization [employer] Address [address] [facility] 7t [place] [address] Care Team Providers Care Digital Director Name Role Phone Kyrie Taygeorge DEE Primary Care Provider +1 [phone] Reason for Visit * Reason Onset Date Comments Referral 03/21/2023 Encounter Details Date Type Department Care Team ([facility] st Contact Info) Description 03/21/2023 Telephone [facility] MEDICINE [address] [place], [place] [phone] Daiana Trevino MD [address] [place] [address] Referral Social History Tobacco Use Types Packs/Day [...] from patient requesting a new referral for [facility] music writer did call facility and needs a renewal on referral due to previous referral expiring in September [facility] is documented in this encounter Plan of Treatment Upcoming Encounters Date Type Department Care Team (Late st Contact Info) Description 04/10/2025 2:00 PM EST Office Visit [facility] MED & PEDS [address] [place] [address] Qamar Mittal CNP [address] [place] [address] 04/21/2025 3:15 PM EST Office Visit [facility] MED & PEDS [address] [place] [address] Qamar Mittal CNP [address] [place] [address] documented as of this encounter Visit Diagnoses Not on filedocumented in this encounter Care Teams Digital Director Relationship Specialty Start Date End Date Qamar Mittal CNP [address] [place] [address] PCP - General Family Medicine 02/04/25 documented as of this encounter
--- OUTSIDE RECORDS SUMMARY | 2025-04-08 18:53 | XMS_ITS | Encounter Summary ---
Author Organization [employer] Address [address] [facility] 7t [place] [address] Care Team Providers Care Wireless Technician Name Role Phone Qamar Mittal CNP Primary Care Provider [phone] [phone] Reason for Visit * Reason Comments Med Refill Encounter Details Date Type Department Care Team ([facility] Contact Info) Description 03/12/2024 Refill [facility] MED & PEDS [address] [place], [place] [phone] Daiana Trevino MD [address] [place] [address] Type 2 diabetes mellitus without complication, without long-term current use of insulin ([facility]) Social History Tobacco Use Types Packs/Day [...] Description 04/10/2025 2:00 PM EST Office Visit [facility] MED & PEDS [address] [place] [address] Qamar Mittal CNP [address] [place] [address] 04/21/2025 3:15 PM EST Office Visit [facility] MED & PEDS [address] [place] [address] Qamar Mittal CNP [address] [place] [address] documented as of this encounter Visit Diagnoses Diagnosis Type 2 diabetes mellitus without complication, without long-term current use of insulin (HCC) documented in this encounter Additional Health Concerns Assessment Noted Time PHQ-9 Depression Total Score: 5 06/20/19 9:37 AM EST documented as of this encounter Care Teams Wireless Technician Relationship Specialty Start Date End Date Qamar Mittal CNP [address] [place] [address] PCP - General Family Medicine 02/04/25 documented as of this encounter
--- OUTSIDE RECORDS SUMMARY | 2025-04-08 18:53 | XMS_ITS | Encounter Summary ---
Author Organization [employer] Address [address] [facility] [place] [address] Care Team Providers Care Agricultural Equipment Mechanic Name Role Phone Qamar Mittal CNP Primary Care Provider [phone] [phone] Encounter Details Date Type Department Care Team ([facility] Contact Info) Description 03/07/2024 Orders Only [facility] MED & PEDS [address] [place] [address] Daiana Trevino MD [address] [place] [address] Social History Tobacco Use Types Packs/Day Years [...] Description 04/10/2025 2:00 PM EST Office Visit [facility] MED & PEDS [address] [place] [address] Qamar Mittal CNP [address] [place] [address] 04/21/2025 3:15 PM EST Office Visit [facility] MED & PEDS [address] [place] [address] Qamar Mittal CNP [address] [place] [address] documented as of this encounter Visit Diagnoses Not on filedocumented in this encounter Additional Health Concerns Assessment Noted Time PHQ-9 Depression Total Score: 5 06/20/19 24 9:37 AM EST documented as of this encounter Care Teams Agricultural Equipment Mechanic Relationship Specialty Start Date End Date Qamar Mittal CNP [address] [place] [address] PCP - General Family Medicine 02/04/25 documented as of this encounter
== END 2025-04-08 15:41 | disposition home or self-care (01) ==
LOC: HO.HGI 14:06
PROVIDERS: PCP Student in an Organized Health Care Education/Training Program; Visit Provider Internal Medicine Gastroenterology
DX: K29.60 Other gastritis without bleeding (principal)

== ENCOUNTER → 2025-04-08 14:06 | Outpatient (BNVA) | payer OTHER, SELFPAY | PROVIDERS: PCP Student in an Organized Health Care Education/Training Program; Visit Provider Internal Medicine Gastroenterology | DX: K29.60 Other gastritis without bleeding (principal) | CPT/HCPCS: 83013 ==

== ENCOUNTER 2025-04-08 15:25 | Outpatient (REF) | payer OTHER, SELFPAY ==
--- OUTSIDE RECORDS SUMMARY | 2025-04-05 23:59 | XMS_ITS | Continuity of Care Document ---
Author Organization [facility] Address [address], [address], [place] [address]- Care Team Providers Care Professional Sports Scout Name Role Phone Zahra QUEVEDO, Mark Perez Primary Care Physician [phone] [id number] Date(s): 03/06[facility]25 - 04/05/25 [facility] [address], [address] [place] [address]- Encounter Type: Triage Allergies, Adverse Reactions, Alerts No Known Allergies Medications aspirin 81 mg oral delayed release tablet 81 mg, 1, tablet, By Mouth, Daily at bedtime, # 30 tablet, Refills 0, Maintenance, 08/10/24 7:19:00 AM EDT, Partial fill upon patient request if the prescription is for a schedule II opioid drug. Start Date: 08/10/24 Status: Ordered Medication Dispense Status: Completed Quantity: 30.0 Unit: tablet Total Allowed Fills: 1 Fills Dispensed: 0 Colace sodium 100 mg oral capsule 100 mg, 1, capsule, By Mouth, Daily at bedtime, PRN, # 20 capsule, Refills 0, Maintenance, for constipation, 08/10/24 7:19:00 AM EDT, Partial fill upon patient request if the prescription is for a schedule II opioid drug. Start Date: 08/10/24 Status: Ordered Medication Dispense Status: Completed Quantity: 20.0 Unit: capsule Total Allowed Fills: 1 Fills Dispensed: 0 gemfibrozil 600 mg oral tablet 600 mg, 1, tablet, By Mouth, 2 times a day, # 60 tablet, Refills 0, Maintenance, 08/10/24 7:18:00 AMEDT, Partial fill upon patient request if the prescription is for a schedule II opioid drug. Start Date: 08/10/24 Status: Ordered Medication Dispense Status: Completed Quantity: 60.0 Unit: tablet Total Allowed Fills: 1 Fills Dispensed: 0 glipizide 10 mg oral tablet 1 tablet, By Mouth, 2 times a day, # 30 tablet, 0 Refills, Maintenance, 12/07/10 8:04:07 AM EDT, Tablet Start Date: 12/07/10 Status: Ordered Medication Dispense Status: Completed Quantity: 30.0 Unit: tablet Total Allowed Fills: 1 Fills Dispensed: 0 ibuprofen 600 mg oral tablet 600 mg, 1, tablet, By Mouth, 3 times a day, 0 Refills Start Date: 09/02/07 Status: Ordered Medication Dispense Status: Completed Total Allowed Fills: 1 Fills Dispensed: 0 lisinopril 10 mg oral tablet 1 tablet, By Mouth, Daily at bedtime, # 30 tablet, 0 Refills, Maintenance, 12/07/10 8:07:21 AM EDT, Tablet Start Date: 12/07/10 Status: Ordered Medication Dispense Status: Completed Quantity: 30.0 Unit: tablet Total Allowed Fills: 1 Fills Dispensed: 0 loratadine 10 mg oral tablet 1 tablet, By Mouth, Daily at bedtime, # 30 tablet, 0 Refills, Maintenance, 12/07/10 8:06:26 AM EDT, Tablet Start Date: 12/07/10 Status: Ordered Medication Dispense Status: Completed Quantity: 30.0 Unit: tablet Total Allowed Fills: 1 Fills Dispensed: 0 Maxzide 25 mg-37.5 mg oral tablet 0 Refills Start Date: 09/02/07 Status: Ordered Medication Dispense Status: Completed Total Allowed Fills: 1 Fills Dispensed: 0 metformin 1000 mg oral tablet 1 tablet, By Mouth, 2 times a day, # 180 tablet, 0 Refills, Maintenance, 12/07/10 8:08:33 AM EDT, Tablet Start Date: 12/07/10 Status: Ordered Medication Dispense Status: Completed Quantity: 180.0 Unit: tablet Total Allowed Fills: 1 Fills Dispensed: 0 MiraLax oral powder for reconstitution = 17 Gm, By Mouth, Daily, # 238 Gm, 0 Refills, Maintenance, 08/17/24 1:47:00 PM EDT, REC Powder, [id number], Partial fill upon patient request if the prescription is for a schedule IIopioid drug., 17 Gm By Mouth Daily, 156, cm, 08/17/24 8:09:00 EDT, Height, 98.3, kg, 08/10/24 5:49:00 EDT, Dry Weight Start Date: 08/17/24 Status: Ordered Medication Dispense Status: Completed Quantity: 238.0 Unit: g Total Allowed Fills: 1 Fills Dispensed: 0 omega-3 polyunsaturated fatty acids 200 mg oral capsule 1 capsule = 200 mg, By Mouth, 2 times a day, # 30 capsule, 0 Refills, Maintenance, 08/10/24 7:18:00 AM EDT, Capsule, Partial fill upon patient request if the prescription is for a schedule II opioid drug. Start Date: 08/10/24 Status: Ordered Medication Dispense Status: Completed Quantity: 30.0 Unit: capsule Total Allowed Fills: 1 Fills Dispensed: 0 rosuvastatin 10 mg oral capsule 1 capsule = 10 mg, By Mouth, Daily at bedtime, # 30 capsule, 0 Refills, Maintenance, 08/10/24 7:19:00 AM EDT, Capsule, Partial fill upon patient request if the prescription is for a schedule II opioiddrug. Start Date: 08/10/24 Status: Ordered Medication Dispense Status: Completed Quantity: 30.0 Unit: capsule Total Allowed Fills: 1 Fills Dispensed: 0 sertraline 25 mg oral tablet 1 tablet = 25 mg, By Mouth, Daily in AM, # 30 tablet, 0 Refills, Maintenance, 08/10/24 7:18:00 AM EDT, Tablet, Partial fill upon patient request if the prescription is for a schedule II opioid drug. Start Date: 08/10/24 Status: Ordered Medication Dispense Status: Completed Quantity: 30.0 Unit: tablet Total Allowed Fills: 1 Fills Dispensed: 0 Tylenol 325 mg oral tablet 975 mg, By Mouth, Every 6 hours, # 45 tablet, Refills 0, Tot. Refills 0, Maintenance, 08/17/24 1:48:00 PM EDT, Route to Pharmacy Electronically, [facility] #[id number], Partial fill upon patient request if the prescription is for a schedule II opioid drug., 156, cm, 08/17/24 8:09:00 EDT, Height, 98.3, kg, 08/10/24 5:49:00 EDT, Dry Weight Start Date: 08/17/24 Status: Ordered Medication Dispense Status: Completed Quantity: 45.0 Unit: tablet Total Allowed Fills: 1 Fills Dispensed: 0 Vitamin D3 2000 intl units oral capsule 1 capsule = 50 mcg, By Mouth, Daily at bedtime, # 60 capsule, 0 Refills, Maintenance, 08/10/24 7:19:00 AM EDT, Capsule, Partial fill upon patient request if the prescription is for a schedule II opioid drug. Start Date: 08/10/24 Status: Ordered Medication Dispense Status: Completed Quantity: 60.0 Unit: capsule Total Allowed Fills: 1 Fills Dispensed: 0 Abdi See Instructions, # 1 each, Maintenance, Use for ambulation, 08/16/24 8:31:00 AM EDT, Supply Start Date: 08/16/24 Status: Ordered Medication Dispense Status: Completed Quantity: 1.0 Unit: each Total Allowed Fills: 1 Fills Dispensed: 0 Abdi See Instructions, # 1 each, Maintenance, Use for ambulation, 08/16/24 8:33:00 AM EDT, Supply Start Date: 08/16/24 Status: Ordered Medication Dispense Status: Completed Quantity: 1.0 Unit: each Total Allowed Fills: 1 Fills Dispensed: 0 Abdi See Instructions, # 1 each, Maintenance, Use for ambulation, 08/16/24 8:34:00 AM EDT, Supply Start Date: 08/16/24 Status: Ordered Medication Dispense Status: Completed Quantity: 1.0 Unit: each Total Allowed Fills: 1 Fills Dispensed: 0 Abdi See Instructions, # 1 each, Maintenance, Use for ambulation, 08/16/24 9:15:00 AM EDT, Supply Start Date: 08/16/24 Status: Ordered Medication Dispense Status: Completed Quantity: 1.0 Unit: each Total Allowed Fills: 1 Fills Dispensed: 0 Abdi See Instructions, # 1 each, Maintenance, N/A, 08/15/24 1:11:00 PM EDT, Supply Start Date: 08/15/24 Status: Ordered Medication Dispense Status: Completed Quantity: 1.0 Unit: each Total Allowed Fills: 1 Fills Dispensed: 0 Indications: Essential (primary) hypertension; Abnormal findings on diagnostic imaging of other specified body structures; Constipation, unspecified; Salpingitis and oophoritis, unspecified; Obstructive sleep apnea (adult) (pediatric); Type 2 diabetes mellitus with unspecified complications; Depress ion, unspecified; Problem List Condition Confirmation Course Effective Dates Status H ealth Status Informant Depression Confirmed Active Diabetes mellitus with unspecified complication, type II or unspecified type, not stated as uncontrolled Confirmed Active Hypertension Confirmed Active Obese class II Confirmed Active Postmenopausal Bleeding Confirmed Active Social History Social History Type Response Sexual Sexually involved in last 6 months: No. Smoking Status Never (less than 100 in lifetime) entered on: 08/10/24 Sex Sex Representation Female (finding) Patient Care team information Care Team Personnel Name: Mark Sweeney MD Position: [facility] Outreach Member Role: PCP Address: [address] [place] [address] Telecom: Name: Sam Dial RN Position: S RN Member Role: Primary Care Nurse Name: Tania Vale RN Position: [facility] RN Member Role: Primary Care Nurse Care Team Related Persons Name: CESIA ANDREW Insurance Providers Guarantor name: NATHANIEL LORRIE Health Plan Information #: 1 Payer: I32 MEDICARE REPLACEMENT Payer Identifier: NA Member Number: [id number] Group Number: [id number] Subscriber Identifier: NA Relationship to Subscriber: self Coverage Type: Medicare Managed Care (Includes Medicare Advantage Plans) Coverage Verification Date: JOSE Telecom: NA Address:
--- OUTSIDE RECORDS SUMMARY | 2025-04-10 14:00 | XMS_ITS | Encounter Summary ---
Author Organization [employer] Address [address] [facility] 7 [place] [address] Care Team Providers Care Office Support Name Role Phone Qamar Mittal CNP Primary Care Provider [phone] Reason for Visit * Reason Comments Follow-up HDF Encounter Details Date Type Department Care Team ([facility] Contact Info) Description 04/10/2025 2:00 PM EST Office Visit [facility] [address] [place], [place] [phone] Qamar Mittal CNP [address] [place] [address] Type 2 diabetes mellitus without complication, with long-term current use of insulin ([facility]) (Primary Dx) Social History Tobacco Use Types Packs/Day Years [...] 2:03 PM EST documented in this encounter Plan of Treatment Upcoming Encounters Date Type Department Care Team (Late st Contact Info) Description 04/21/2025 3:15 PM EST Office Visit [facility] [address] [place], [place] [phone] Qamar Mittal CNP [address] [place] [address] Scheduled Orders Name Type Priority Associated Diagnoses [...] Care Plan Weekly blood pressure task No Leopoldo Amelia Patient has chronic kidney disease Care Plan [...] chronic kidney disease No Jason Rose, PharmD Weekly blood pressure task Care Plan Weekly blood pressure task No GomezChevyysha Weekly blood pressure task Care Plan Weekly blood pressure task No GomezChevyysha Patient has chronic kidney disease Care Plan Patient has chronic kidney disease No Gomez Jaysha Patient has chronic kidney disease Care Plan Patient has chronic kidney disease No Gomez, Jaysha Weekly blood pressure task Care Plan Weekly blood pressure task No Jason Rose, PharmD Weekly blood pressure task Care Plan Weekly blood pressure task No Jason, Rose, PharmD Patient has chronic kidney disease Care Plan Patient has chronic kidney disease No Jason, Rose, PharmD Patient has chronic kidney disease Care Plan Patient has chronic kidney disease No Jason Rose, PharmD Weekly blood pressure task Care Plan Weekly blood pressure task No Roselyn Stern [place] Weekly blood pressure task Care Plan Weekly blood pressure task No Roselyn Stern [place] Patient has chronic kidney disease Care Plan Patient has chronic kidney disease No Leena Roselyn, KATHYA Patient has chronic kidney disease Care Plan Patient has chronic kidney disease No ArcherRoselyn Powers [place] Weekly blood pressure task Care Plan Weekly blood pressure task No GenevaJamil KATHYA Dempsey Weekly blood pressure task Care Plan Weekly blood pressure task No GenevaJamilRoselyn KATHYA Patient has chronic kidney disease Care Plan Patient has chronic kidney disease No ArcherPriya KATHYA Dempsey Patient has chronic kidney disease Care Plan Patient has chronic kidney disease No ArcherRoselyn Powers [place] documented as of this encounter Procedures Procedure Name Priority Date/Time Associated Diagnosis Comments POCT GLUCOSE Routine 04/10/2025 2:05 PM EST Type 2 diabetes mellitus without complication, with long-term current use of insulin ([facility]) documented in this encounter Results * (ABNORMAL) POCT glucose manually resulted (04/10/2025 2:05 PM EST) [facility] Glucose Blood, POC 200 60 - 200 mg/dL QC Media Lot # Comment:[id number] Lot# Expiration Date Comment:07/28/2025 Blood Capillary blood specimen / Unknown 04/10/2025 2:05 PM EST [facility] POINT OF CARE TEST ENTER/ EDIT ORDERABLES Final Result documented in this encounter Visit Diagnoses Diagnosis Type 2 diabetes mellitus without complication, with long-term current use of insulin (HCC)- Primary documented in this encounter Additional Health Concerns [...] documented as of this encounter Care Teams Office Support Relationship Specialty Start Date End Date Qamar Mittal CNP [address] [place] [address] PCP - General Family Medicine 02/04/25 documented as of this encounter
--- OUTSIDE RECORDS SUMMARY | 2025-04-10 14:00 | XMS_ITS | Encounter Summary ---
Author Organization [employer] Address [address] [facility] 7 [place] [address] Care Team Providers Care Marine Design Engineer Name Role Phone Qamar Mittal CNP Primary Care Provider [phone] [phone] Reason for Visit * Reason Comments Follow-up HDF Encounter Details Date Type Department Care Team ([facility] Contact Info) Description 04/10/2025 2:00 PM EST Office Visit [facility] [address] [place], [place] [phone] Qamar Mittal CNP [address] [place] [address] Type 2 diabetes mellitus without complication, with long-term current use of insulin ([facility]) (Primary Dx); Erosive gastritis; Dizziness Social History [...] y.o. female who presents for HDF Visit. [facility] (03/10/25-03/14/25) Patient with PMH of obesity, VIRI, [...] -Mounjaro 2.5 -Farxiga 10mg -Rosuvastatin 20mg pending BMP, If CrCl < 30 ml/min and patient has been tolerating rosuvastatin, consider switching rosuvastatin to atorvastatin 40 mg once daily as the max recommended dose for rosuvastatin at that CrCl is 10 mg once daily Follow up in about 2 months (around 06/11/2025) for F/u DM . documented in this encounter Plan of Treatment Upcoming Encounters Date Type Department Care Team ([facility] st Contact Info) Description 06/11/2025 2:30 PM EST Office Visit [facility] [address] [place] [address] Qamar Mittal CNP [address] [place] [address] Scheduled Orders Name Type Priority Associated Diagnoses [...] Care Plan Weekly blood pressure task No Carmelina Minaenia Patient has chronic kidney disease Care Plan Patient has chronic kidney disease No Amelia Mina Patient has chronic kidney disease Care Plan Patient has chronic kidney disease No Amelia Mina Weekly blood pressure task Care Plan Weekly blood pressure task No Rose Gomez, PharmD Weekly blood pressure task Care Plan Weekly blood pressure task No Agueda Gomeza, PharmD Patient has chronic kidney disease Care Plan Patient has chronic kidney disease No Agueda Gomeza, PharmD Patient has chronic kidney disease Care Plan Patient has chronic kidney disease No Agueda Gomeza, PharmD Weekly blood pressure task Care Plan Weekly blood pressure task No Gonzales Gomezha Weekly blood pressure task Care Plan Weekly blood pressure task No Gomez Jaysha Patient has chronic kidney disease Care Plan Patient has chronic kidney disease No Gomez Jaysha Patient has chronic kidney disease Care Plan Patient has chronic kidney disease No GomezChevyysha Weekly blood pressure task Care Plan Weekly blood pressure task No Agueda Gomeza, PharmD Weekly blood pressure task Care Plan Weekly blood pressure task No Agueda Gomeza, PharmD Patient has chronic kidney disease Care Plan Patient has chronic kidney disease No Agueda Gomeza, PharmD Patient has chronic [...] Plan Weekly blood pressure task No Ney SternhaKATHYA Weekly blood pressure task Care Plan Weekly blood pressure task No Roselyn Stern [place] Patient has chronic kidney disease Care Plan Patient has chronic kidney disease No Roselyn Stern [place] Patient has chronic kidney disease Care Plan Patient has chronic kidney disease No Roselyn Stern [place] documented as of this encounter Procedures Procedure Name Priority Date/Time Associated Diagnosis Comments POCT GLUCOSE (CPT-[id number]) Routine 04/10/2025 2:05 PM EST Type 2 diabetes mellitus without complication, with long-term current use of insulin ([facility]) documented in this encounter Results * (ABNORMAL) POCT glucose manually resulted (04/10/2025 2:05 PM EST) [facility] Glucose Blood, POC 200 60 - 200 mg/dL QC Media Lot # Comment:[id number] Lot# Expiration Date Comment:07/28/2025 Blood Capillary blood specimen / Unknown 04/10/2025 2:05 PM EST [facility] POINT OF CARE TEST ENTER/ EDIT ORDERABLES Final Result documented in this encounter Visit Diagnoses Diagnosis Type 2 diabetes mellitus without complication, with long-term current use of insulin ([facility])- Primary Erosive gastritis Other specified gastritis with [...] documented as of this encounter Care Teams Marine Design Engineer Relationship Specialty Start Date End Date Qamar Mittal CNP [address] [place] [id number] PCP - General Family Medicine 02/04/25 documented as of this encounter
--- OUTSIDE RECORDS SUMMARY | 2025-04-10 15:58 | XMS_ITS | Encounter Summary ---
Author Organization [employer] Address [address] [facility] [address] [place] [address] Care Team Providers Care Shipping Assistant Name Role Phone Kyrie Taygeorge DEE Primary Care Provider [phone] [phone] Reason for Visit * Reason Onset Date Comments Referral 03/21/2023 Encounter Details Date Type Department Care Team ([facility] st Contact Info) Description 03/21/2023 Telephone [facility] [address] [place], [place] [phone] Daiana Trevino MD [address] [place] [address] Referral Social History Tobacco Use Types Packs/Day [...] from patient requesting a new referral for [facility] scenario writer did call facility and needs a renewal on referral due to previous referral expiring in September [facility] this encounter Plan of Treatment Upcoming Encounters Date Type Department Care Team ([facility] st Contact Info) Description 04/21/2025 3:15 PM EST Office Visit [facility] [address] [place] [address] Qamar Mittal CNP [address] [place] [address] documented as of this encounter Visit Diagnoses Not on filedocumented in this encounter Care Teams Shipping Assistant Relationship Specialty Start Date End Date Qamar Mittal CNP [address] [place] [address] PCP - General Family Medicine 02/04/25 documented as of this encounter
--- OUTSIDE RECORDS SUMMARY | 2025-04-10 15:58 | XMS_ITS | Continuity of Care Document ---
Author Organization KATHYA - [facility], [place] 2nd floor Address [address] [place] [address] Assessment Encounter Date Assessment Date Assessment LastModified [...] of continued conservative management versus surgical management. [email or web address] Not available 02/15/2025 19:44:57 Plan of Treatment [...] [facility], [address], [address], [place], [address], 02/25/2025 12:37:32 Medication Orders None recorded. Patient TargetsNo targets recorded. Patient InstructionsNo instructions recorded. Reason for Referral None Reported. Results Created Date Observation Date Name Description Value Unit Range Abnormal Flag Note LastModifiedBy Organization Detail LastModifiedTime 02/17/2002/16/2025 XR, knee, 4 or more view http:/ [email or web address] ?Encry pted=s hAaTro YD8dLq bEUv6g %2BXZw aYqtaq 0bqfl% 2Fg9IQ a4ajBk vP9nXo QUaueC m3YtLR FvZlgJ JJ8mAn HZtai3 8e8909 AC0KlY nmGU6a iKiQtr MwF INTERFACE [facility] [address], [address], 02/16/2025 09:50:23 02/17/2002/16/2025 XR, knee, 4 or more view http:/ [email or web address] ?Encry pted=s hAaTro YD8dLq bEUv6g %2BXZw aYqtaq 0bqfl% 2Fg9IQ a4ajBk vP9nXo QUaueC m3YtLR FvZlgJ JJ8mAn HZtai3 9p8951 AC0KlY nmGU6a iKiQtr MwF INTERFACE [facility] [address], [place], [address], 02/16/2025 09:50:25 Result Notes Documentation Provider Name and Address Organization Details Recorded Time Xr, Knee, 4 Or More View : [email or web address] Encrypted=mpIjAcoFA4tRwmG Uv6g%1SCHswQxoqp0ndoe%2Fg 7FHd2ynTwsU4nFrDBrgyVp7Oj NYWgCngNFJ7iMcUSdcn98o591 2FW8CzNvaSP8rqLlOinEcO Not Available [facility] 02/16/2025 09:50: 24 Xr, Knee, 4 Or More View : [email or web address] Encrypted=glMdRjvRD6dWmrT Uv6g%4CIGsjKtfhl3ptax%2Fg 3RZa6tvGcpY0eOrCRnhxXr5Mn RDRyMumBKP1sKzHZaot86x315 0JC3XwQqdGB2lbSeUkvQbN Not Available [facility] 02/16/2025 09:50: 25 Problems Name Problem SNOMED Code Status Onset Date Resolution Date Notes Provider Name and Address Organization Details Recorded Time Pain of bilateral knee regions 23175039017964 2 Active 2024 ELFEGO LEI [facility] 09:39:45 Problem Notes None recorded. Procedures Surgical History Date Name Laterality Status Provider Name and Address Organization Details Recorded Time 02/16/2025 JZKNEE INJ Frankie completed Chi Fierro PA-C [address] [facility], [place], [address], [facility] 02/15/2025 19:44:52 10/30/2024 JZKNEE INJ Frankie completed Chi Fierro PA-C [address] [facility], [place], [address], [facility] 10/29/2024 14:59:39 06/16/2024 JZKNEE INJ Frankie completed Chi Fierro PA-C [address], [place], [address], [facility] 06/16/2024 08:05:41 06/09/2024 JZKNEE INJ Frankie cancelled Chi Fierro PA-C [address], [place], [address], [facility] 06/09/2024 12:48:39 03/06/2024 JZKNEE INJ Frankie completed Chi Fierro PA-C [address], [place], [address], [facility] 03/05/2024 14:36:22 12/04/2023 JZKNEE INJ Frankie completed Chi Fierro PA-C [address], [place], [address], [facility] 12/04/2023 08:17:20 09/06/2023 Sports Knee 4&1 completed Chi Fierro PA-C [address], [place], [address], [facility] 09/06/2023 12:35:54 Imaging [...] Updated DateTime 02/16/2025 154.94 cm 37 kg/m2 52926.1 g KAYLIA L'HEUREUX [facility] 02/16/2025 09:37:43 Social History Question Answer Notes LastModified by [employer] Details LastModified Time Tobacco Smoking Status Never Smoker ELFEGO L'HEUREUX marcelino [facility] 07/11/2023 15:03:03 What Is Your Relationship Status? Single Information not available 07/11/2023 Sex: Unknown Functional Status Question Answer Note LastModified by [employer] Details LastModified Time Do you use any [...] Problems N Vascular Disease N Heart Attack (IN) N Gastrointestinal Disease N Cholesterol Y Diabetes [...] ICD10 Code Diagnosis IMO Codes Diagnosis Note [id number] JAIME Parikh 2nd floor [address] [facility] [place] [address] 02/16/2025 09:20:34 02/25/2025 12:37:32 Primary gonarthrosis, bilateral [id number] M17.0 [id number] Pain of bi lateral knee regions 6544248782 52895 M25.561 M25.562 [id number] Health Concerns Section Related Observation LastModified by Organization Detai ls LastModified Time None Recorded Concern Status LastModified by Organization Details LastModified Time None Recorded Payers Encounter Date Sequence Insurance Name Policy Number Policy Collado Covered Member ID Collado Member ID Guarantor Name 02/16/2025 1 [facility] (MEDICARE REPLACEMENT/A DVANTAGE - HMO) Yuliet Underwood [id number] Yuliet Underwood OBGyn Episode No OBEpisode recorded.
--- OUTSIDE RECORDS SUMMARY | 2025-04-10 15:58 | XMS_ITS | Encounter Summary ---
Author Organization [employer] Address [address] [facility] 7t [place] [address] Care Team Providers Care Senior Administrator Support Name Role Phone Kyrie Taykarlenehugo LEILA Primary Care Provider +1 [phone] Reason for Visit * Reason Onset Date Comments Appointment Request 04/05/2023 Encounter Details Date Type Department Care Team ([facility] Contact Info) Description 04/05/2023 Telephone [facility] [address] [place], [place] [phone] Daiana Trevino MD [address] [place] [address] Appointment Request Social History Tobacco Use Types [...] - 04/05/2023 2:46 PM EST Tc from [place] with [facility] insurance requesting a PE appt for program Please contact pt @ [phone] documented in this encounter Plan of Treatment Upcoming Encounters Date Type Department Care Team (Late Contact Info) Description 04/21/2025 3:15 PM EST Office Visit [facility] MED & PEDS [address] [place] [address] Qamar Mittal CNP [address] [facility] [place] [address] documented as of this encounter Visit Diagnoses Not on filedocumented in this encounter Care Teams Senior Administrator Support Relationship Specialty Start Date End Date Qamar Mittal CNP [address] [facility] [place] [address] PCP - General Family Medicine 02/04/25 documented as of this encounter
--- OUTSIDE RECORDS SUMMARY | 2025-04-10 15:58 | XMS_ITS | Encounter Summary ---
Author Organization [employer] Address [address] [facility] 7t [place] [address] Care Team Providers Care Unhairer Name Role Phone Qamar Mittal CNP Primary Care Provider +1 [phone] Reason for Visit * Reason Comments Med Refill Encounter Details Date Type Department Care Team ([facility] Contact Info) Description 03/12/2024 Refill [facility] CHC MED & PEDS [address] [place], [place] [phone] Daiana Trevino MD [address] [place] [address] Type 2 diabetes mellitus without complication, without long-term current use of insulin ([facility]) Social History Tobacco Use Types Packs/Day [...] Description 04/21/2025 3:15 PM EST Office Visit [facility] CHC MED & PEDS [address] [place] [address] Qamar Mittal CNP [address] [place] [address] documented as of this encounter Visit Diagnoses Diagnosis Type 2 diabetes mellitus without complication, without long-term current use of insulin (HCC) documented in this encounter Additional Health Concerns Assessment Noted Time PHQ-9 Depression Total Score: 5 06/20/19 9:37 AM EST documented as of this encounter Care Teams Unhairer Relationship Specialty Start Date End Date Qamar Mittal CNP [address] [place] [address] PCP - General Family Medicine 02/04/25 documented as of this encounter
--- OUTSIDE RECORDS SUMMARY | 2025-04-10 15:58 | XMS_ITS | Encounter Summary ---
Author Organization [employer] Address [address] [place] [address] 7 [place] [address] Care Team Providers Care Blast Setter Name Role Phone Qamar Mittal CNP Primary Care Provider +1 [phone] Encounter Details Date Type Department Care Team (Latest Contact Info) Description 01/02/2020 Abstract [facility] Dental, Provider, DDS Social History Tobacco [...] Description 04/21/2025 3:15 PM EST Office Visit [facility] CHC MED & PEDS [address] [place] [address] Qamar Mittal CNP [address] [place] [address] documented as of this encounter Visit Diagnoses Not on filedocumented in this encounter Care Teams Blast Setter Relationship Specialty Start Date End Date Qamar Mittal CNP [address] [place] [address] PCP - General Family Medicine 02/04/25 documented as of this encounter
--- OUTSIDE RECORDS SUMMARY | 2025-04-10 15:58 | XMS_ITS | Encounter Summary ---
Author Organization [employer] [facility] Address [address] [place] [address] [address] [place] [address] Care Team Providers Care Bufferer Name Role Phone Qamar Mittal CNP Primary Care Provider +1 [phone] Encounter Details Date Type Department Care Team (Late st Contact Info) Description 12/27/2022 Orders Only [facility] MED & PEDS [address] [place] [address] Shannen Kerr LPN Social History Tobacco Use [...] Description 04/21/2025 3:15 PM EST Office Visit [facility] MED & PEDS [address] [place] [address] Qamar Mittal CNP [address] [place] [address] documented as of this encounter Visit Diagnoses Not on filedocumented in this encounter Care Teams Bufferer Relationship Specialty Start Date End Date Qamar Mittal CNP [address] [place] [address] PCP - General Family Medicine 02/04/25 documented as of this encounter
--- OUTSIDE RECORDS SUMMARY | 2025-04-10 15:58 | XMS_ITS | Encounter Summary ---
Author Organization [employer] Address [address] 7[address] [place] [address] Care Team Providers Care Door Trimmer Name Role Phone MittalTaykarlenehugo LEILA Primary Care Provider [phone] [phone] Encounter Details Date Type Department Care Team (Latest Contact Info) Description 04/10/2025 Travel Social History Tobacco Use Types Packs/Day [...] Description 04/21/2025 3:15 PM EST Office Visit [facility] MED & PEDS [address] [place] [address] Qamar Mittal CNP [address] [place] [address] documented as of this encounter Goals Goal [...] Weekly blood pressure task No Rose Gomez, Raul Weekly blood pressure task Care Plan Weekly blood pressure task No Rose Gomez, PharmRhea Patient has chronic kidney disease Care Plan Patient has chronic kidney disease No Rose Gomez, PharmRhea Patient has chronic kidney disease Care Plan Patient has chronic kidney disease No Rose Gomez, Raul Weekly blood pressure task Care Plan Weekly blood pressure task No Carmen Gomez Weekly blood pressure task Care Plan Weekly blood pressure task No Carmen Gomez Patient has chronic kidney disease Care Plan Patient has chronic kidney disease No Carmen Gomez Patient has chronic kidney [...] documented as of this encounter Care Teams Door Trimmer Relationship Specialty Start Date End Date Qamar Mittal CNP [address] [place] [address] PCP - General Family Medicine 02/04/25 documented as of this encounter
--- OUTSIDE RECORDS SUMMARY | 2025-04-10 15:58 | XMS_ITS | Encounter Summary ---
Author Organization [employer] Address [address] 7[address] [place] [address] Care Team Providers Care Rehabilitation Services Aide Name Role Phone Qamar Mittal CNP Primary Care Provider [phone] [phone] Reason for Visit * Reason Onset Date Comments Med Refill 03/12/2024 Encounter Details Date Type Department Care Team ([facility] Contact Info) Description 03/12/2024 Telephone [facility] CHC MED & PEDS [address] [place], [place] [phone] Daiana Trevino MD [address] [place] [address] Med Refill Social History Tobacco Use Types [...] 100 UNIT/ML pen To be sent to: [facility] [place], [place] - [address] [facility] documented in this encounter Plan of Treatment Upcoming Encounters Date Type Department Care Team ([facility] st Contact Info) Description 04/21/2025 3:15 PM EST Office Visit [facility] MED & PEDS [address] [place] [address] Qamar Mittal CNP [address] [place] [address] documented as of this encounter Visit Diagnoses Not on filedocumented in this encounter Additional Health Concerns Assessment Noted Time PHQ-9 Depression Total Score: 5 06/20/19 24 9:37 AM EST documented as of this encounter Care Teams Rehabilitation Services Aide Relationship Specialty Start Date End Date Qamar Mittal CNP [address] [place] [address] PCP - General Family Medicine 02/04/25 documented as of this encounter
--- OUTSIDE RECORDS SUMMARY | 2025-04-10 15:58 | XMS_ITS | Encounter Summary ---
Author Organization [employer] Address [address] [facility] [address] [place] [address] Care Team Providers Care Report Clerk Name Role Phone Qamar Mittal CNP Primary Care Provider [phone] [phone] Reason for Visit * Reason Comments Med Refill Encounter Details Date Type Department Care Team ([facility] Contact Info) Description 03/12/2024 Refill [facility] CHC MED & PEDS [address] [place], [place] [phone] Daiana Trevino MD [address] [place] [address] Social History Tobacco Use Types Packs/Day Years [...] Description 04/21/2025 3:15 PM EST Office Visit [facility] CHC MED & PEDS [address] [place] [address] Qamar Mittal CNP [address] [place] [address] documented as of this encounter Visit Diagnoses Not on filedocumented in this encounter Additional Health Concerns Assessment Noted Time PHQ-9 Depression Total Score: 5 06/20/19 24 9:37 AM EST documented as of this encounter Care Teams Report Clerk Relationship Specialty Start Date End Date Qamar Mittal CNP [address] [place] [address] PCP - General Family Medicine 02/04/25 documented as of this encounter
--- OUTSIDE RECORDS SUMMARY | 2025-04-10 15:58 | XMS_ITS | Clinical Summary ---
Author Organization [employer] Address [address] [place] [address] 7[address] [place] [address] Care Team Providers Care Ruby On Rails Developer Name Role Phone Qamar Mittal CNP Primary Care Provider [phone] Allergies Active Allergy Reactions Criticality Noted Date Comments Statins High 03/10/2025 Other Reaction(s): SEVERE DIARRHEA Medications fluticasone (Flonase) 50 MCG/ACT nasal spray INHALE ONE OR TWO SPRAYS IN EACH NOSTRIL DAILY NEEDED 16 g 3 023 Active insulin pen needle (UltiCare Short Pen [place]) 31G X 8 mm miscIndicatio ns:Type 2 [...] complication, with long-term current use of insulin ([facility]) USE TO TEST BLOOD SUGAR ONCE A DAY 1 kit Active Alcohol Swabs (Alcohol Prep) 70 % pads USE FIVE TIMES DAILY 100 each 11 Active glucose blood (Accu-Chek Guide Test) test stripIndicati ons:Type 2 diabetes mellitus without complication, with long-term current use of insulin ([facility]) Check sugars twice daily 100 each 11 025 2025 Active Blood Glucose Monitoring Suppl (Accu-Chek Guide) w/Device kitIndication s:Type 2 diabetes mellitus without complication, with long-term current use of insulin ([facility]) Check sugars twice daily 1 kit 3 Active Accu-Chek Softclix Lancets lancetsIndica tions:Type 2 diabetes mellitus without complication, with long-term current use of insulin ([facility]) Use as instructed 100 each 12 025 2025 Active triamterene-h ydroCHLOROthi azide (Dyazide) 37.5-25 MG capsule TAKE ONE CAPSULE EVERY MORNING 30 capsule 11 Active sertraline (Zoloft) 25 MG tablet TAKE ONE TABLET EVERY MORNING 30 tablet 3 Active Tirzepatide (Mounjaro) 2.5 MG/0.5ML solution auto-injector Indications:T ype 2 diabetes mellitus without complication, with long-term current use of insulin ([facility]) Inject 2.5 mg under the skin 1 (one) time per week. 2 mL Active dapagliflozin (Farxiga) 10 MGIndications :Type 2 diabetes mellitus without complication, with long-term current use of insulin ([facility]),Stage 4 chronic kidney disease (CMS/HCC) ([facility]) Take 1 tablet (10 mg) by mouth Once per day. 30 tablet 11 5 2:54 PM EST 2025 Active loratadine (Claritin) 10 MG tablet TAKE [...] complication, without long-term current use of insulin ([facility]) INJECT 35 UNITS SUBCUTANEOUSLY EVERY NIGHT AT BEDTIME 15 mL 5 3:06 PM EST Active gemfibrozil (Lopid) 600 MG tablet Take 600 mg by mouth. Active tiZANidine (Zanaflex) 4 MG tabletIndicat ions:Type 2 diabetes mellitus without complication, with long-term current use of insulin ([facility]) Take 1 tablet (4 mg) by mouth every 8 (eight) hours if needed for muscle spasms. 30 tablet 5 2:59 PM EST 2024 Active Tirzepatide (Mounjaro) 2.5 MG/0.5ML solution auto-injector Indications:T ype 2 diabetes mellitus without complication, with long-term current use of insulin ([facility]) Inject 2.5 mg under the skin 1 (one) time per week. 2 mL 3 Active loratadine (Claritin) 10 MG tablet TAKE ONE TABLET EVERY EVENING 30 tablet 5 025 2024 Discontinued insulin glargine (Lantus SoloStar) 100 UNIT/ML penIndication s:Type 2 diabetes mellitus without complication, without long-term current use of insulin (HCC) INJECT 35 UNITS SUBCUTANEOUSLY AT BEDTIME 15 mL 5 4:04 PM EST 025 2024 Discontinued gemfibrozil (Lopid) 600 MG tablet [...] cleanup (will not trigger notification to Pharmacy)) furosemide (Lasix) 20 MG tablet TAKE ONE TABLET EVERY MORNING 30 tablet 3 2:54 PM EST 2024 Discontinued(T herapy completed) Active Problems Problem Noted Date Diagnosed Date [...] 04/08/2025 Severe obesity (CMS/HCC) 04/08/2025 Diabetes 04/08/2025 Overview (04/10/2025): Current therapy includes: Metformin 500 mg BID Rosuvastatin 20mg Farxiga 10mg Mounjaro 2.5mg Hypoglycemia 04/08/2025 Pain in both knees 02/16/2025 [...] Encounters Date Type Department Care Team Description 04/10/2025 2:00 PM EST Office Visit [facility] MED & PEDS [address] [place] [address] Qamar Mittal CNP Type 2 diabetes mellitus without complication, with long-term current use of insulin (HCC) (Primary Dx) 04/10/2025 Travel 04/08/2025 Telephone [facility]EDS [address] [place] [address] Qamar Mittal CNP chart prep 04/01/2025 Refill [facility] [address] [place] [address] Kim Patterson MD Type 2 diabetes mellitus without complication, without long-term current use of insulin (HCC) 03/25/2025 Patient Outreach [facility] [address] [place] [address] Qamar Mittal CNP Transition Of Care (Tcm) (HDF scheduled and SDOH screening completed on 10/15/24 ) 03/25/[address] [facility] [address] [place] [address] Rose Gomez PharmD 03/23/2025 3:00 PM EST Office Visit [facility] ADULT DENTAL [address] [place] [address] Luis Miguel Delatorre DMD Denture irritation (Primary Dx) 03/20/2025 Refill [facility] PED[facility] [address] [place] [address] Daiana Trevino MD 03/10/2025 Orders Only GENERIC EXTERNAL DATA DEPARTMENT Provider, Generic External Data 03/09/2025 3:00 PM EST Office Visit [facility] ADULT DENTAL [address] [place] [address] Luis Miguel Delatorre DMD Denture irritation (Primary Dx) 03/05/2025 Orders Only [facility] External Provider, [facility] 02/26/2025 2:00 PM EST Office Visit [facility] ADULT DENTAL [address] [place] [address] Luis Miguel Delatorre DMD Partial edentulism, unspecified edentulism class (Primary Dx); Periodontal disease 02/19/2025 1:00 PM EDT Office Visit [facility] MED [facility] PEDS [address] [place] [address] Qamar Mittal CNP Stage 4 chronic kidney disease (CMS/HCC) (HCC) (Primary Dx); Type 2 diabetes mellitus without complication, with long-term current use of insulin (HCC); Encounter for vaccination; Anxiety 02/19/2025 Travel 02/17/2025 Refill [facility] MED [facility] PED[facility] [address] [place] [address] Daiana Trevino MD 02/11/2025 1:00 PM EDT Office Visit [facility] ADULT DENTAL [address] [place] [address] Luis Miguel Delatorre DMD Partial edentulism, unspecified edentulism class (Primary Dx) 02/11/2025 Patient Outreach [facility] [address] [place] [address] Qamar Mittal CNP Pre-visit Planning ([facility] screening completed on 10/15/24) 02/10/2025 Travel 02/07/2025 Refill [facility] MED [facility] PED[facility] [address] [place] [address] Daiana Trevino MD 02/04/2025 5:40 PM EDT Office Visit [facility] [address] [place] [address] Selena Rhoades NP Muscle pain (Primary Dx); Hypertriglyceridemi a 02/04/2025 Telephone [facility] MED [facility] PED[facility] [address] [place] [address] Qamar Mittal CNP ICD-10 CODE 02/04/2025 Travel 02/04/2025 Telephone [facility] MED [facility] PED[facility] [address] [place] [address] Whitney Mina MA Chart Prep 02/03/2025 Telephone [facility] MED [facility] PED[facility] [address] [place] [address] Daiana Trevino MD 01/27/2025 2:00 PM EDT Office Visit [facility] ADULT DENTAL [address] [place] [address] Luis Miguel Delatorre, JEFERSON Partial edentulism, unspecified edentulism class (Primary Dx) 01/23/2025 Refill [facility] P[facility] [address] [place] [address] Daiana Trevino MD 01/21/[address] [facility] [address] [place] [address] Daiana Trevino MD Type 2 diabetes mellitus without complication, with long-term current use of insulin ([facility]) 01/13/2025 2:00 PM EDT Office Visit [facility] ADULT DENTAL [address] [place] [address] Jerry Griffin Partial edentulism, unspecified edentulism class (Primary Dx); Dental calculus from Last 3 Months Immunizations Immunization Administration [...] Mass Index 36.47 04/10/2025 2:03 PM EST Plan of Treatment Upcoming Encounters Date Type Department Care Team (Late st Contact Info) Description 04/21/2025 3:15 PM EST Office Visit [facility] MED & PEDS [address] [place] [address] MittalQamar, [facility] [address] [place] [address] Health Maintenance Due Date Last Done Comments Eye Exam 10/15/1955 Hepatitis C Screening 10/15/1963 Zoster Vaccines (1 of 2) 10/15/1995 RSV Patients and Patients Aged 60 years or older (1 - 1-dose 75+ series) 2020 Influenza Vaccine (#1) 2024 4, 03/26/2013, 01/19/2012 Diabetes: Hemoglobin A1C 05/22/202502/19/2 025, 02/06/2025, 10/22/2024, Additional history exists Dental Oral Exam 07/14/2025 01/13/2025, 08/2024, 11/22/2023, Additional history exists Dental Prophylaxis 07/14/2025 01/13/2025, 0 06/25/2024, 11/22/2023, Additional history exists COVID-19 Vaccine (8 - 2025-26 season) 2025 02/19/2025, 01/14/2024, 02/22/2023, Additional history [...] Weekly blood pressure task No Gonzales Gomezha Patient has chronic kidney disease Care Plan Patient has chronic kidney disease No GomezChevyysha Patient has chronic kidney disease Care Plan Patient has chronic kidney disease No Gonzales Gomezha Weekly blood pressure task [...] chronic kidney disease No Roselyn Stern MA Procedures Procedure Name Priority Date/Time Associated Diagnosis Comments POCT GLUCOSE Routine 04/10/2025 2:05 PM EST Type 2 diabetes mellitus without complication, with long-term current use of insulin ([facility]) DENTURE FOLLOWUP Routine 03/23/2025 3:00 PM EST [...] complication, with long-term current use of insulin ([facility]) PANORAMIC RADIOGRAPHIC IMAGE Routine 07/09/2024 3:00 PM EDT Periodontal disease Dental caries from Last 3 Months or Most Recently Relevant to Health Maintenance Results * (ABNORMAL) POCT glucose manually resulted (04/10/2025 2:05 PM EST) Only the most recent of2 resultswithin the time period is included. Glucose Blood, POC 200 60 - 200 mg/dL QC Media Lot # Comment:[id number] Lot# Expiration Date Comment:07/28/2025 Blood Capillary blood specimen / Unknown 04/10/2025 2:05 PM EST [facility] POINT OF CARE TEST ENTER/ EDIT ORDERABLES Final Result * (ABNORMAL) Glucose, Whole Blood (03/10/2025 4:26 PM EST) Only the most recent of2 resultswithin the time period is included. Glucose, Whole Blood 127(H) 60 - 115 mg/dL [facility] Comment:METER #: [id number] 03/10/2025 4:26 PM EST 03/10/2025 5:37 PM EST Generic External Data Provider LAB BLOOD ORDERAB LES Final Result [facility] [address] [place] [phone] * CT Abdomen Pelvis w/o Contrast (03/10/2025 4:09 PM EST) Anatomical Region Laterality Modality Body, Pelvis, Abdomen Computed T omography 03/10/2025 4:09 PM EST Narrative 03/10/2025 4:[address] [address] [address] Scan Report Signed Patient: Yuliet Underwood MR#: [id number] : 1945 Acct:[id number] Age/Sex: 79 / F ADM Date: 03/10/25 Loc: HO.ED Attending Dr: Ordering Physician: Juana Dougherty Date of Service: 03/10/25 Procedure(s): CT abdomen pelvis wo IV con Accession Number(s): [id number] cc: Juana Dougherty; Daiana Trevino MD Report Number: [id number]: Total DLP = 733.00 mGy-cm Reason for [...] by: Hunter Lazo MD 03/10/2025 04:44 PM [facility] Dictated By: Hunter Lazo MD Signed By: <Electronically signed by Hunter Lazo MD in OV> 03/10/25 1644 DD/ 1609 TD/TT: 03/10/25 1621 Senior Product Engineer: Procedure Note Donotuseinterpreter, Image - 03/10/[address] [address] [address] Scan Report Signed Patient: Everton Underwood#: [id number] : 6Acct:[id number] Age/Sex: 79 / FADM Date: 03/10/25 Loc: HO.ED Attending Dr: Ordering Physician: Juana Dougherty Date of Service: 03/10/25 Procedure(s): CT abdomen pelvis wo IV con Accession Number(s): [id number] cc: Juana Dougherty; Daiana Trevino MD Report Number: [id number]: Total DLP = 733.00 mGy-cm Reason for [...] Hunter Lazo MD 03/10/2025 04:44 PM EST RP Dictated By: Hunter Lazo MD Signed By: <Electronically signed by Hunter Lazo MD in OV> 03/10/25 1644 DD/ 1609 TD/TT: 03/10/25 1621 Senior Product Engineer: [facility] External Provider IMG CT PROCEDURES Final Result * US Pelvis Transvaginal (03/05/2025 1:15 PM EST) Anatomical Region Laterality Modality Pelvis Ultrasound 03/05/2025 1:15 PM EST Narrative 03/05/2025 2:09 PM EST [place] [address] Ultrasound Report Signed Patient: Yuliet Underwood MR#: [id number] : 1945 Acct:[id number] Age/Sex: 79 / F ADM Date: 03/05/25 Loc: HO.US Attending Dr: Clint Damon MD Ordering Physician: Clint Damon MD Date of Service: 03/05/25 Procedure(s): US pelvic and transvaginal Accession Number(s): [id number] cc: Daiana Trevino MD; Clint Damon MD [...] Dov De Guzman MD 03/05/2025 02:06 PM [facility] Dictated By: Dov Munoz MD Signed By: <Electronically signed by Dov Brown MD in OV> 03/05/25 1406 DD/ 1315 TD/TT: 03/05/25 1332 Senior Product Engineer: Procedure Note Donotuseinterpreter, Image - 03/05/[address] [address] Ultrasound Report Signed Patient: Everton Underowod#: [id number] : 1945cct:[id number] Age/Sex: 79 / FADM Date: 03/05/25 Loc: HO.US Attending Dr: Clint Damon MD Ordering Physician: Clint Damon MD Date of Service: 03/05/25 Procedure(s): US pelvic and transvaginal Accession Number(s): [id number] cc: Daiana Trevino MD; Clint Damon MD [...] Dov De Guzman MD 03/05/2025 02:06 PM [facility] Dictated By: Dov Munoz MD Signed By: <Electronically signed by Dov Brown MDin OV> 03/05/25 1406 DD/ 1315 TD/TT: 03/05/25 1332 Senior Product Engineer: [facility] External Provider IMG US PROCEDURES Final Result * (ABNORMAL) POCT A1c (02/19/2025 2:03 PM EDT) Hemoglobin A1C 8.3(A) 4.0 - 5.7 % QC Media Lot # Comment:[id number] Lot# Expiration Date Comment:08/14/2026 Blood 02/19/2025 2:03 PM EDT Qamar Mittal [facility] POINT OF CARE TEST ENTER/ EDIT ORDERABLES Final Result * (ABNORMAL) Hemoglobin A1c (02/06/2025 10:20 AM EDT) Hemoglobin A1c 8.6(H) <6.0 % [facility] Comment:Hemoglobin A1C Refer ence Range Adults: 4.8 - 6.0 % Non diabetic: < 6.0 % Goal: < 7.0 %Additional Action Suggested: > 8.0 %Note: Hemoglobin A1c results are invalid for patients with abnormal amounts of HbF. Blood transfusions may impact the HbA1c concentration in the patient sample. Estimated Average Glucose 200 mg/dL [facility] Comment:eAG = Estimated ave rage glucose which is %A1C expressed asaverage glucose, using the formula of the E7C-JcyrodhIrsuqvu Glucose study (ADAG), Diabetes Care, Vol.31,#8,Nov. 2007 Blood Venous blood specimen / Unknown 02/06/2025 10:20 AM EDT 02/06/2025 2:38 PM EDT Daiana Trevino MD LAB BLOOD ORDERABLES Final Resul t [facility] [address] [place] [phone] * Hepatic Function Panel (02/06/2025 10:20 AM EDT) Bilirubin, Total 0.2 0.0 - 1.0 mg/dL [facility] Bilirubin, Direct <0.2 0.0 - 0.5 mg/dL [facility] Aspartate Amino Transferase 29 5 - 31 U/L [facility] Alanine Aminotransferase 11 0 - 31 U/L [facility] Total Protein 7.1 6.5 - 8.0 g/dL [facility] Albumin Level 4.6 3.5 - 5.0 g/dL [facility] Alkaline Phosphatase 48 39 - 117 U/L [facility] Blood Venous blood specimen / Unknown 02/06/2025 10:20 AM EDT 02/06/2025 2:38 PM EDT Daiana Trevino MD LAB BLOOD ORDERABLES Final Resul t Performing Organization Address [facility] Co de Phone Number [facility] [address] [place] [address] [phone] * (ABNORMAL) Lipid Panel, Standard (02/06/2025 10:20 AM EDT) Triglycerides 430(H) <150 mg/dL [facility] Comment:Slight Lipemia.Jenna able Triglyceride: less than 150 mg/dLBorderline High Triglyceride 150-199 mg/dLHigh Triglyceride: 200-499 mg/dLVery High Triglyceride: greater than or equal to 5OO mg/dL Cholesterol 152 <200 mg/dL [facility] Comment:Desirable Cholestero l: less than 200 mg/dLBorderline High Cholesterol: 200-239 mg/dLHigh Cholesterol: greater than 239 mg/dL LDL Cholesterol Calculated TNP <100 mg/dL [facility] Comment:Unable to calculate the LDL. The formula of Friedwald,Degroot, and Gemma is only valid if the triglycerides areless than 400 mg/dl. HDL Cholesterol 27(L) >40 mg/dL [facility] Comment:Desirable HDL: great er than 40 mg/dL Note: This HDL assay may give artificially low results in patients with liver disease. Blood Venous blood specimen / Unknown 02/06/2025 10:20 AM EDT 02/06/2025 2:38 PM EDT Daiana Trevino MD LAB BLOOD ORDERABLES Final Resul t Performing Organization Address [facility] Co de Phone Number [facility] [address] [place] [address] [phone] * (ABNORMAL) Basic Metabolic Panel (02/06/2025 10:20 AM EDT) Sodium 142 135 - 145 mmol/L [facility] Potassium 4.3 3.3 - 5.1 mmol/L [facility] Chloride 105 96 - 108 mmol/L [facility] Carbon Dioxide 24 22 - 29 mmol/L [facility] Anion Gap 17 12 - 20 [facility] Urea Nitrogen (BUN) 49(H) 9 - 16 mg/dL [facility] Creatinine, Serum 1.79(H) 0.5 - 1.4 mg/dL [facility] Estimated Glomerular Filt Rate 27 [facility] Comment:Chronic Kidney Disea se: Estimated GFR < 60 mL/min/1.09n7Pxszrm Kidney Disease: Estimated GFR < 15 mL/min/1.73m2 Glucose 152(H) 60 - 115 mg/dL [facility] Calcium 10.5(H) 8.4 - 10.2 mg/dL [facility] Blood Venous blood specimen / Unknown 02/06/2025 10:20 AM EDT 02/06/2025 2:38 PM EDT Daiana Trevino MD LAB BLOOD ORDERABLES Final Resul t [facility] [address] [place] [phone] * (ABNORMAL) Albumin, Random Urine W/Creatinine (11/17/2024 10:03 AM EDT) Creatinine, Urine 115.32 mg/dL [facility] Microalbumin Urine 99.0 mg/L [facility] Microalbum Creatinine Ratio Ur 85.8(H) <30 ug/mg cr [facility] Comment:Albumin/Creatinine R atio Reference Ranges: Normal: < 30 ug/mg creatinine Microalbuminuria: 30 - 300 ug/mg creatinineClinical Albuminuria: > 300 ug/mg creatinine 11/17/2024 10:0 3 AM EDT 11/17/2024 2:53 PM EDT Daiana Trevino MD LAB URINE ORDERABLES Final Resul t [facility] [address] [place] [phone] [phone] from Last 3 Months or Most [...] Patient has chronic kidney disease 04/08/2025 Insurance [facility] DUAL COMPLETE [facility] Care Teams Ruby On Rails Developer Relationship Specialty Start Date End Date Qamar Mittal CNP [address] [place] [address] PCP - General Family Medicine 02/04/25
--- OUTSIDE RECORDS SUMMARY | 2025-04-10 15:58 | XMS_ITS | Encounter Summary ---
Author Organization [facility] Address [address] [place] [address] [address] [place] [address] Care Team Providers Care Pier Runner Name Role Phone Qamar Mittal CNP Primary Care Provider [phone] [phone] Encounter Details Date Type Department Care Team (Late st Contact Info) Description 08/18/2022 Orders Only [facility] MED & PEDS [address] [place] [address] Melanie Henson LPN Social History Tobacco Use [...] Description 04/21/2025 3:15 PM EST Office Visit [facility] [address] [place] [address] Qamar Mittal CNP [address] [place] [address] documented as of this encounter Visit Diagnoses Not on filedocumented in this encounter Care Teams Pier Runner Relationship Specialty Start Date End Date Qamar Mittal CNP [address] [place] [address] PCP - General Family Medicine 02/04/25 documented as of this encounter
--- OUTSIDE RECORDS SUMMARY | 2025-04-10 15:58 | XMS_ITS | Encounter Summary ---
Author Organization [employer] Address [address] [place] [address] Care Team Providers Care Plant Cytologist Name Role Phone Qamar Mittal CNP Primary Care Provider [phone] Reason for Visit * Reason Comments Med Refill Encounter Details Date Type Department Care Team ([facility] Contact Info) Description 02/07/2025 Refill [facility]ED[facility] [address] [place], [place] [phone] Daiana Trevino MD [address] [place], [place] [phone] Social History Tobacco Use Types Packs/Day Years [...] Upcoming Encounters Date Type Department Care Team ([facility] st Contact Info) Description 04/21/2025 3:15 PM EST Office Visit [facility] MED & PEDS [address] [place] [address] Qamar Mittal CNP [address] [place] [address] documented as of this encounter Visit Diagnoses Not on filedocumented in this encounter Additional Health Concerns Assessment Noted Time PHQ-9 Depression Total Score: 0 12/30/19 11:36 AM EDT documented as of this encounter Care Teams Plant Cytologist Relationship Specialty Start Date End Date Qamar Mittal CNP [address] [place] [address] PCP - General Family Medicine 02/04/25 documented as of this encounter
--- OUTSIDE RECORDS SUMMARY | 2025-04-10 15:58 | XMS_ITS | Encounter Summary ---
Author Organization [email or web address] Address [address] [facility] [address]t [place] [address] Care Team Providers Care Vegetable Canner Name Role Phone Qamar Mittal CNP Primary Care Provider [phone] Reason for Visit * Reason Onset Date Comments Referral 03/01/2023 Encounter Details Date Type Department Care Team ([facility] st Contact Info) Description 03/01/2023 Telephone [facility] MEDICINE [address] [place] [address] Daiana Trevino MD [address] [place] [address] Referral Social History Tobacco Use Types Packs/Day [...] EST Tc from pt requesting renew on [facility] referral, pt have an appt today at 3:00PM forher Cortizone shot but was advise by office referral is . documented in this encounter Plan of Treatment Upcoming Encounters Date Type Department Care Team (Late st Contact Info) Description 04/21/2025 3:15 PM EST Office Visit [facility] MED & PEDS [address] [place] [address] Qamar Mittal CNP [address] [place] [address] documented as of this encounter Visit Diagnoses Not on filedocumented in this encounter Care Teams Vegetable Canner Relationship Specialty Start Date End Date Qamar Mittal CNP [address] [place] [address] PCP - General Family Medicine 02/04/25 documented as of this encounter
--- OUTSIDE RECORDS SUMMARY | 2025-04-10 15:58 | XMS_ITS | Encounter Summary ---
Author Organization [employer] Address [address] [facility] [address]t [place] [address] Care Team Providers Care Welfare Administrator Name Role Phone Qamar Mittal CNP Primary Care Provider [phone] Reason for Visit * Reason Onset Date Comments chart prep 04/08/2025 Encounter Details Date Type Department Care Team ([facility] Contact Info) Description 04/08/2025 Telephone [facility] MED & PEDS [address] [place], [place] [phone] Qamar Mittal CNP [address] [place] [address] chart prep Social History Tobacco Use Types [...] Description 04/21/2025 3:15 PM EST Office Visit [facility] MED & PEDS [address] [place] [address] Qamar Mittal CNP [address] [place] [address] documented as of this encounter Goals Goal [...] Weekly blood pressure task No Chevy Gomezysha Weekly blood pressure task Care Plan Weekly blood pressure task No Gomez Jaysha Patient has chronic kidney disease Care Plan Patient has chronic kidney disease No Chevy Gomezysha Patient has chronic kidney [...] documented as of this encounter Care Teams Welfare Administrator Relationship Specialty Start Date End Date Qamar Mittal CNP [address] [place] [address] PCP - General Family Medicine 02/04/25 documented as of this encounter
--- OUTSIDE RECORDS SUMMARY | 2025-04-10 15:58 | XMS_ITS | Encounter Summary ---
Author Organization [employer] [facility] Address [address] [place] [address] [address] [place] [address] Care Team Providers Care Die Operator Name Role Phone Qamar Mittal CNP Primary Care Provider +1 [phone] Encounter Details Date Type Department Care Team (Late st Contact Info) Description 02/27/2023 Orders Only [facility] MED & PEDS [address] [place] [address] Shannen Kerr LPN Social History Tobacco Use [...] Description 04/21/2025 3:15 PM EST Office Visit [facility] MED [facility] P[facility] [address] [place] [address] Qamar Mittal CNP [address] [place] [address] documented as of this encounter Visit Diagnoses Not on filedocumented in this encounter Care Teams Die Operator Relationship Specialty Start Date End Date Qamar Mittal CNP [address] [place] [address] PCP - General Family Medicine 02/04/25 documented as of this encounter
--- OUTSIDE RECORDS SUMMARY | 2025-04-10 15:58 | XMS_ITS | Encounter Summary ---
Author Organization [employer] Address [address] 7[address] [place] [address] Care Team Providers Care Plastic Tile Layer Name Role Phone Qamar Mittal CNP Primary Care Provider +1 [phone] Encounter Details Date Type Department Care Team ([facility] Contact Info) Description 03/07/2024 Orders Only [facility]C MED & PEDS [address] [place], [place] [id number] Daiana Trevino MD [address] [place] [address] Social History Tobacco Use Types Packs/Day Years [...] Description 04/21/2025 3:15 PM EST Office Visit [facility] MED & PEDS [address] [place] [address] Qamar Mittal CNP 505 [place] [address] documented as of this encounter Visit Diagnoses Not on filedocumented in this encounter Additional Health Concerns Assessment Noted Time PHQ-9 Depression Total Score: 5 06/20/19 24 9:37 AM EST documented as of this encounter Care Teams Plastic Tile Layer Relationship Specialty Start Date End Date Qamar Mittal CNP [address] [place] [address] PCP - General Family Medicine 02/04/25 documented as of this encounter
--- OUTSIDE RECORDS SUMMARY | 2025-04-10 15:59 | XMS_ITS | Data Portability ---
Author Organization [place] [facility] [place] [facility] Address [address] [place] [address] Assessment Encounter Date Assessment Date Assessment LastModified [...] of continued conservative management versus surgical management. [email or web address] Not available 12/04/2023 15:12:58 03/06/2024 03/06/2024 I [...] of continued conservative management versus surgical management. [email or web address] Not available 03/05/2024 14:36:30 06/16/2024 06/16/2024 I [...] of continued conservative management versus surgical management. [email or web address] Not available 06/16/2024 12:59:53 10/30/2024 10/30/2024 I [...] of continued conservative management versus surgical management. [email or web address] Not available 10/29/2024 14:59:45 02/16/2025 02/16/2025 I [...] knee xrays. rm 211 2024 025 [facility] Office, [address], [place], [address], 02/25/2025 12:37:32 Medication Orders None recorded. Patient TargetsNo targets recorded. Patient InstructionsNo instructions recorded. Reason for Referral None Reported. Results Created Date Observation Date Name Description Value Unit Range Abnormal Flag Note LastModifiedBy Organization Detail LastModifiedTime 02/17/2002/16/2025 XR, knee, 4 or more view [email or web address]:/ [email or web address] ?Encry pted=s hAaTro YD8dLq bEUv6g %2BXZw aYqtaq 0bqfl% 2Fg9IQ a4ajBk vP9nXo QUaueC m3YtLR FvZlgJ JJ8mAn HZtai3 7k0304 AC0KlY nmGU6a iKiQtr MwF INTERFACE [facility] [address], [place], [address], 02/16/2025 09:50:23 02/17/2002/16/2025 XR, knee, 4 or more view http:/ [email or web address] ?Encry pted=s hAaTro YD8dLq bEUv6g %2BXZw aYqtaq 0bqfl% 2Fg9IQ a4ajBk vP9nXo QUaueC m3YtLR FvZlgJ JJ8mAn HZtai3 6b0455 AC0KlY nmGU6a iKiQtr MwF INTERFACE [facility] [address], [place], [address], 02/16/2025 09:50:25 Result Notes Documentation Provider Name and Address Organization Details Recorded Time Xr, Knee, 4 Or More View : [email or web address]? Encrypted=oyWuWojAB5eXmjQ Uv6g%1MMRwhHygow0hegn%2Fg 0QRk0prNmmZ3kHmELkgcDp8Hu TKQuXnlQTO4dMdRDvfs93d101 5JB4ReNifEH3iyHvNcdYdF Not Available [facility] 02/16/2025 09:50: 24 Xr, Knee, 4 Or More View : [email or web address]? Encrypted=ggJiFuePH4gOdjM Uv6g%8VGZtvSkagb6obkx%2Fg 6XYf4qfIuhJ7pTaEDvinTy3Sm LUOsAkhKSI7cGxBDxxq59b913 3SL3XxZmtYS1vmVgCuzOkQ Not Available [facility] 02/16/2025 09:50: 25 Problems Name Problem SNOMED Code Status Onset Date Resolution Date Notes Provider Name and Address Organization Details Recorded Time Pain of bilateral knee regions 53073186411029 2 Active 2024 ELFEGO Arellano'HEURVY benson, [facility] 09:39:45 Problem Notes None recorded. Procedures Surgical History Date Name Laterality Status Provider Name and Address Organization Details Recorded Time 02/16/2025 JZNICHOLASEE INJ Frankie completed Chi Fierro PA-C [address], [place], [address], [facility] 02/15/2025 19:44:52 10/30/2024 JZKNEE INJ Frankie completed Chi Fierro PA-C [address], [place], [address], [facility] 10/29/2024 14:59:39 06/16/2024 JZKNEE INJ Frankie completed Chi Fierro PA-C [address], [place], [address], [facility] 06/16/2024 08:05:41 06/09/2024 JZKNEE INJ Frankie cancelled Chi Fierro PA-C [address], [place], [address], [facility] 06/09/2024 12:48:39 03/06/2024 JZKNEE INJ Frankie completed Chi Fierro PA-C [address], [place], [address], [facility] 03/05/2024 14:36:22 12/04/2023 JZKNEE INJ Frankie completed Chi Fierro PA-C [address], [place], [address], [facility] 12/04/2023 08:17:20 09/06/2023 Sports Knee 4&1 completed Chi Fierro PA-C [address], [place], [address], [facility] [...] Updated DateTime 06/16/2024 154.94 cm 37 kg/m2 97378.1 g KAYLIA L'HEUREUX [place] 06/16/2024 12:53:55 Date Recorded Body height Body mass index (BMI) Body weight Provider Name and Address Organization Details Last Updated DateTime 10/30/2024 154.94 cm 37 kg/m2 33134.1 evan Patel [facility] 10/30/2024 10:38:25 Date Recorded Body height Body mass index (BMI) Body weight Provider Name and Address Organization Details Last Updated DateTime 12/04/2023 154.94 cm 37 kg/m2 71932.1 evan KAYLIA L'HEUREUX [facility] 12/04/2023 15:03:01 Date Recorded Body height Body mass index (BMI) Body weight Provider Name and Address Organization Details Last Updated DateTime 02/16/2025 154.94 cm 37 kg/m2 25973.1 g KAYLIA L'HEUREUX [facility] 02/16/2025 09:37:43 Date Recorded Body height Body mass index (BMI) Body weight Provider Name and Address Organization Details Last Updated DateTime 03/06/2024 154.94 cm 37 kg/m2 86996.1 g KAYLIA L'HEUREUX [facility] 03/06/2024 15:47:23 Social History Question Answer Notes LastModified by Organizat ion Details LastModified Time Tobacco Smoking Status Never Smoker EVANYLIA L'HEUREUX [facility] 07/11/2023 15:03:03 What Is Your Relationship Status? [...] Problems N Vascular Disease N Heart Attack ([place]) N Gastrointestinal Disease N Cholesterol Y Diabetes [...] ICD10 Code Diagnosis IMO Codes Diagnosis Note [id number] Chi Fierro PA-C [facility] [address] [place] [address] 07/11/2023 14:38:06 07/12/2023 07:58:16 Bilateral osteoarthritis of knees 8093343000 29015 M17.0 [id number] Chi Fierro PA-C [facility] [address] [place] [address] 09/06/2023 15:40:30 09/27/2023 15:02:46 Bilateral osteoarthritis of knees 8554069924 51145 M17.0 [id number] Chi Fierro PA-C [facility] [address] [place] [address] 12/04/2023 14:49:34 12/28/2023 12:23:49 Bilateral osteoarthritis of knees 0533176636 10331 M17.0 [id number] Chi Fierro PA-C [facility] [address] [place] [address] 03/06/2024 15:41:03 04/07/2024 12:00:28 Primary gonarthrosis, bilateral 882983197 M17.0 8182260 [id number] Chi Fierro PA-C [facility] - [facility] [address] [place] [address] 06/16/2024 12:48:05 06/30/2024 18:45:02 Primary gonarthrosis, bilateral 763757345 M17.0 3927491 [id number] Chi Fierro PA-C [facility] - [facility] [address] [place] [address] 10/30/2024 10:32:46 11/10/2024 11:44:55 Primary gonarthrosis, bilateral 544680982 M17.0 3371443 6788913 Chi Fierro PA-C [facility] - [facility] [address] [place] [address] 02/16/2025 09:20:34 02/25/2025 12:37:32 Primary gonarthrosis, bilateral 348700721 M17.0 5858414 Pain of bi lateral knee regions 2513798685 87799 M25.561 M25.562 [id number] Health Concerns Section Related Observation LastModified by Organization Detai ls LastModified Time None Recorded Concern Status LastModified by Organization Details LastModified Time None Recorded Advance Directives Directive None Recorded Payers Insurance Date Sequence Insurance Name Policy Number Policy Collado Covered Member ID Collado Member ID Guarantor Name 02/25/2025 1 [facility] (MEDICARE REPLACEMENT/A DVANTAGE - HMO) Yuliet Underwood [id number] Yuliet Underwood OBGyn Episode No OBEpisode recorded.
--- OUTSIDE RECORDS SUMMARY | 2025-04-13 13:57 | XMS_ITS | Continuity of Care Document ---
Author Organization [facility] - [facility], [facility] 2[address] Address [address] [place] [address] Assessment Encounter Date Assessment Date Assessment LastModified [...] of continued conservative management versus surgical management. [email or web address] Not available 02/15/2025 19:44:57 Plan of Treatment [...] [facility], [address], [address], [place], [address], 02/25/2025 12:37:32 Medication Orders None recorded. Patient TargetsNo targets recorded. Patient InstructionsNo instructions recorded. Reason for Referral None Reported. Results Created Date Observation Date Name Description Value Unit Range Abnormal Flag Note LastModifiedBy Organization Detail LastModifiedTime 02/17/2002/16/2025 XR, knee, 4 or more view http:/ [email or web address] ?Encry pted=s hAaTro YD8dLq bEUv6g %2BXZw aYqtaq 0bqfl% 2Fg9IQ a4ajBk vP9nXo QUaueC m3YtLR FvZlgJ JJ8mAn HZtai3 1y3451 AC0KlY nmGU6a iKiQtr MwF INTERFACE [facility] [address], [place], [address], 02/16/2025 09:50:23 02/17/2002/16/2025 XR, knee, 4 or more view http:/ [email or web address] ?Encry pted=s hAaTro YD8dLq bEUv6g %2BXZw aYqtaq 0bqfl% 2Fg9IQ a4ajBk vP9nXo QUaueC m3YtLR FvZlgJ JJ8mAn HZtai3 7c5805 AC0KlY nmGU6a iKiQtr MwF INTERFACE [facility] [address], [place], [address], 02/16/2025 09:50:25 Result Notes Documentation Provider Name and Address Organization Details Recorded Time Xr, Knee, 4 Or More View : [email or web address]? Encrypted=tmQzQebRH3kNxiD Uv6g%5BOZcgGcarm6keue%2Fg 1GHs6onJaiX6zKfSQjooCi7Yl EFKuFgvTVQ1pJyPDbok33v057 1DA8CeLceUA9khPdUujItS Not Available [facility] 02/16/2025 09:50: 24 Xr, Knee, 4 Or More View : [email or web address]? Encrypted=irOgCybIJ5oRkdD Uv6g%2OEOplSkptl7zqkc%2Fg 5MSn7fgYsvL3uFqAHocrLz6Hn MVMwPhpNQM1pOoRLvey00x104 2LN6EpXmuQU4cmWsJuhZgF Not Available [facility] 02/16/2025 09:50: 25 Problems Name Problem SNOMED Code Status Onset Date Resolution Date Notes Provider Name and Address Organization Details Recorded Time Pain of bilateral knee regions 04338855762381 2 Active 2024 ELFEGO LEI [facility] 09:39:45 Problem Notes None recorded. Procedures Surgical History Date Name Laterality Status Provider Name and Address Organization Details Recorded Time 02/16/2025 JZKNEE INJ Frankie completed Chi Fierro PA-C [address] [facility], [place], [address], [facility] 02/15/2025 19:44:52 10/30/2024 JZKNEE INJ Frankie completed Chi Fierro PA-C [address] [facility], [place], [address], [facility] 10/29/2024 14:59:39 06/16/2024 JZKNEE INJ Frankie completed Chi Fierro PA-C [address], [place], [address], [facility] 06/16/2024 08:05:41 06/09/2024 JZKNEE INJ Frankie cancelled Chi Fierro PA-C [address], [place], [address], [facility] 06/09/2024 12:48:39 03/06/2024 JZKNEE INJ Frankie completed Chi Fierro PA-C [address], [place], [address], [facility] 03/05/2024 14:36:22 12/04/2023 JZKNEE INJ Frankie completed Chi Fierro PA-C [address], [place], [address], [facility] 12/04/2023 08:17:20 09/06/2023 Sports Knee 4&1 completed Chi Fierro PA-C [address], [place], [address], [facility] 09/06/2023 12:35:54 [...] Updated DateTime 02/16/2025 154.94 cm 37 kg/m2 38443.1 g KAYLIA L'HEUREUX [facility] 02/16/2025 09:37:43 Social History Question Answer Notes LastModified by [employer] Details LastModified Time Tobacco Smoking Status Never Smoker ELFEGO L'HEUREUX [facility] 07/11/2023 15:03:03 What Is Your Relationship Status? Single Information not available 07/11/2023 Sex: Unknown Functional Status Question Answer Note LastModified by [employer] Details LastModified Time Do you use any [...] Problems N Vascular Disease N Heart Attack ([place]) N Gastrointestinal Disease N Cholesterol Y Diabetes [...] ICD10 Code Diagnosis IMO Codes Diagnosis Note [id number] JAIME Parikh [address] [facility] [address] 02/16/2025 09:20:34 02/25/2025 12:37:32 Primary gonarthrosis, bilateral 865876805 M17.0 2638914 Pain of bi lateral knee regions 8435301051 47629 M25.561 M25.562 [id number] Health Concerns Section Related Observation LastModified by Organization Detai ls LastModified Time None Recorded Concern Status LastModified by Organization Details LastModified Time None Recorded Payers Encounter Date Sequence Insurance Name Policy Number Policy Collado Covered Member ID Collado Member ID Guarantor Name 02/16/2025 1 [facility] (MEDICARE REPLACEMENT/A DVANTAGE - HMO) Yuliet Underwood [id number] Yuliet Underwood OBGyn Episode No OBEpisode recorded.
--- OUTSIDE RECORDS SUMMARY | 2025-04-13 13:57 | XMS_ITS | Encounter Summary ---
Author Organization [employer] Address [address] [facility] 7t [place] [address] Care Team Providers Care Information Technology Intern Name Role Phone Qamar Mittal CNP Primary Care Provider +1 [phone] Reason for Visit * Reason Comments Med Refill Encounter Details Date Type Department Care Team ([facility] Contact Info) Description 03/12/2024 Refill [facility] MED & PEDS [address] [place], [place] [phone] Daiana Trevino MD [address] [place] [address] Type 2 diabetes mellitus without complication, without long-term current use of insulin ([facility]) Social History Tobacco Use [...] Description 06/11/2025 2:30 PM EST Office Visit [facility] MED & PEDS [address] [place] [address] Qamar Mittal CNP [address] [place] [address] documented as of this encounter Visit Diagnoses Diagnosis Type 2 diabetes mellitus without complication, without long-term current use of insulin (HCC) documented in this encounter Additional Health Concerns Assessment Noted Time PHQ-9 Depression Total Score: 5 06/20/19 9:37 AM EST documented as of this encounter Care Teams Information Technology Intern Relationship Specialty Start Date End Date Qamar Mittal CNP [address] [place] [address] PCP - General Family Medicine 02/04/25 documented as of this encounter
--- OUTSIDE RECORDS SUMMARY | 2025-04-13 13:57 | XMS_ITS | Encounter Summary ---
Author Organization [employer] [facility] Address [address] [place] [address] [address] [place] [address] Care Team Providers Care Grooming Assistant Name Role Phone Qamar Mittal CNP Primary Care Provider +1 -[phone] Encounter Details Date Type Department Care Team (Late st Contact Info) Description 12/27/2022 Orders Only [facility] MED & PEDS [address] [place] [address] Shannen Kerr LPN Social History Tobacco Use [...] Description 06/11/2025 2:30 PM EST Office Visit [facility] MED & PEDS [address] [place] [address] Qamar Mittal CNP 505 [place] [address] documented as of this encounter Visit Diagnoses Not on filedocumented in this encounter Care Teams Grooming Assistant Relationship Specialty Start Date End Date Qamar Mittal CNP [address] [place] [address] PCP - General Family Medicine 02/04/25 documented as of this encounter
--- OUTSIDE RECORDS SUMMARY | 2025-04-13 13:57 | XMS_ITS | Encounter Summary ---
Author Organization [employer] Address [address] [place] [address] Care Team Providers Care Network Consultant Name Role Phone Qamar Mittal CNP Primary Care Provider +1 [phone] Reason for Visit * Reason Comments Med Refill Encounter Details Date Type Department Care Team ([facility] Contact Info) Description 02/07/2025 Refill [facility] CHC MED & PEDS [address] [place], [place] [phone] Daiana Trevino MD [address] [place], [place] [phone] Social History Tobacco Use Types Packs/Day Years [...] Upcoming Encounters Date Type Department Care Team ([facility] st Contact Info) Description 06/11/2025 2:30 PM EST Office Visit [facility] MED & PEDS [address] [place] [address] Qamar Mittal CNP [address] [place] [address] documented as of this encounter Visit Diagnoses Not on filedocumented in this encounter Additional Health Concerns Assessment Noted Time PHQ-9 Depression Total Score: 0 12/30/19 11:36 AM EDT documented as of this encounter Care Teams Network Consultant Relationship Specialty Start Date End Date Qamar Mittal CNP [address] [place] [address] PCP - General Family Medicine 02/04/25 documented as of this encounter
--- OUTSIDE RECORDS SUMMARY | 2025-04-13 13:57 | XMS_ITS | Encounter Summary ---
Author Organization [employer] Address [address] [place] [address] Care Team Providers Care Body Trimmer Upholsterer Name Role Phone Qamar Mittal CNP Primary Care Provider +1 -[phone] Reason for Visit * Reason Comments Med Refill Encounter Details Date Type Department Care Team ([facility] Contact Info) Description 03/12/2024 Refill [facility] CHC MED & PEDS [address] [place], [place] [phone] Daiana Trevino MD [address] [place] [address] Social History Tobacco Use Types Packs/Day Years [...] Description 06/11/2025 2:30 PM EST Office Visit [facility] CHC MED & PEDS [address] [place] [address] Qamar Mittal CNP [address] [place] [address] documented as of this encounter Visit Diagnoses Not on filedocumented in this encounter Additional Health Concerns Assessment Noted Time PHQ-9 Depression Total Score: 5 06/20/19 24 9:37 AM EST documented as of this encounter Care Teams Body Trimmer Upholsterer Relationship Specialty Start Date End Date Qamar Mittal CNP [address] [place] [address] PCP - General Family Medicine 02/04/25 documented as of this encounter
--- OUTSIDE RECORDS SUMMARY | 2025-04-13 13:57 | XMS_ITS | Encounter Summary ---
Author Organization [employer] [facility] Address [address] [place] [address] 7 [place] [address] Care Team Providers Care Load Tester Name Role Phone Qamar Mittal CNP Primary Care Provider +1 [phone] Encounter Details Date Type Department Care Team (Late st Contact Info) Description 02/27/2023 Orders Only [facility] MED & PEDS [address] [place] [address] Shannen Kerr LPN Social History Tobacco Use [...] Description 06/11/2025 2:30 PM EST Office Visit [facility] MED & PEDS [address] [place] [address] Qamar Mittal CNP [address] [place] [address] documented as of this encounter Visit Diagnoses Not on filedocumented in this encounter Care Teams Load Tester Relationship Specialty Start Date End Date Qamar Mittal CNP [address] [place] [address] PCP - General Family Medicine 02/04/25 documented as of this encounter
--- OUTSIDE RECORDS SUMMARY | 2025-04-13 13:57 | XMS_ITS | Encounter Summary ---
Author Organization [employer] Address [address] [place] [address] Care Team Providers Care Oil Painter Name Role Phone MittalTaykarlenehugo LEILA Primary Care Provider +1 -[phone] Encounter Details Date Type Department Care Team [...] Description 06/11/2025 2:30 PM EST Office Visit [facility] MED & PEDS [address] [place] [address] Qamar Mittal CNP [address] [place] [address] documented as of this encounter Goals Goal [...] Patient has chronic kidney disease No Amelia Mian Weekly blood pressure task Care Plan Weekly [...] documented as of this encounter Care Teams Oil Painter Relationship Specialty Start Date End Date Qamar Mittal CNP [address] [place] [address] PCP - General Family Medicine 02/04/25 documented as of this encounter
--- OUTSIDE RECORDS SUMMARY | 2025-04-13 13:57 | XMS_ITS | Encounter Summary ---
Author Organization [employer] Address [address] [facility] 7t [place] [address] Care Team Providers Care Rotating Equipment Engineer Name Role Phone Qamar Mittal CNP Primary Care Provider +1 -[phone] Reason for Visit * Reason Onset Date Comments Referral 03/01/2023 Encounter Details Date Type Department Care Team ([facility] st Contact Info) Description 03/01/2023 Telephone [facility] [address] [place] [address] Daiana Trevino MD [address] [place] [address] Referral Social History Tobacco Use Types Packs/Day [...] EST Tc from pt requesting renew on [facility] referral, pt have an appt today at 3:00PM forher Cortizone shot but was advise by office referral is . documented in this encounter Plan of Treatment Upcoming Encounters Date Type Department Care Team (Late st Contact Info) Description 06/11/2025 2:30 PM EST Office Visit [facility] CHC MED & PEDS [address] [place] [address] Qamar Mittal CNP [address] [place] [address] documented as of this encounter Visit Diagnoses Not on filedocumented in this encounter Care Teams Rotating Equipment Engineer Relationship Specialty Start Date End Date Qamar Mittal CNP [address] [place] [address] PCP - General Family Medicine 02/04/25 documented as of this encounter
--- OUTSIDE RECORDS SUMMARY | 2025-04-13 13:57 | XMS_ITS | Encounter Summary ---
Author Organization [employer] Address [address] 7t [place] [address] Care Team Providers Care Superintendent Track Name Role Phone Qamar Mittal CNP Primary Care Provider +1 -[phone] Reason for Visit * Reason Onset Date Comments Med Refill 03/12/2024 Encounter Details Date Type Department Care Team ([facility] Contact Info) Description 03/12/2024 Telephone [facility] MED & PEDS [address] [place], [place] [phone] Daiana Trevino MD 505 [place] [address] Med Refill Social History Tobacco Use Types [...] 100 UNIT/ML pen To be sent to: [facility] - [place], [place] - [address] [facility] documented in this encounter Plan of Treatment Upcoming Encounters Date Type Department Care Team ([facility] st Contact Info) Description 06/11/2025 2:30 PM EST Office Visit [facility] MED & PEDS [address] [place] [address] Qamar Mittal CNP 505 [place] [address] documented as of this encounter Visit Diagnoses Not on filedocumented in this encounter Additional Health Concerns Assessment Noted Time PHQ-9 Depression Total Score: 5 06/20/19 24 9:37 AM EST documented as of this encounter Care Teams Superintendent Track Relationship Specialty Start Date End Date Qamar Mittal CNP [address] [place] [address] PCP - General Family Medicine 02/04/25 documented as of this encounter
--- OUTSIDE RECORDS SUMMARY | 2025-04-13 13:57 | XMS_ITS | Encounter Summary ---
Author Organization [employer] Address [address] [facility] 7t [place] [address] Care Team Providers Care Mill Attendant Name Role Phone Kyrie Taygeorge DEE Primary Care Provider +1 -[phone] Reason for Visit * Reason Onset Date Comments Referral 03/21/2023 Encounter Details Date Type Department Care Team ([facility] st Contact Info) Description 03/21/2023 Telephone [facility] MEDICINE [address] [place], [place] [phone] Daiana Trevino MD [address] [place] [address] Referral Social History Tobacco Use Types Packs/Day [...] from patient requesting a new referral for [facility] press writer did call facility and needs a renewal on referral due to previous referral expiring in September [facility] documented in this encounter Plan of Treatment Upcoming Encounters Date Type Department Care Team ([facility] st Contact Info) Description 06/11/2025 2:30 PM EST Office Visit [facility] MED & PEDS [address] [place] [address] Qamar Mittal CNP [address] [place] [address] documented as of this encounter Visit Diagnoses Not on filedocumented in this encounter Care Teams Mill Attendant Relationship Specialty Start Date End Date Qamar Mittal CNP [address] [place] [address] PCP - General Family Medicine 02/04/25 documented as of this encounter
--- OUTSIDE RECORDS SUMMARY | 2025-04-13 13:58 | XMS_ITS | Encounter Summary ---
Author Organization [employer] Address [address] [place] [address] 7 [place] [address] Care Team Providers Care Utility Forester Name Role Phone Qamar Mittal CNP Primary Care Provider +1 [phone] Encounter Details Date Type Department Care Team (Latest Contact Info) Description 01/02/2020 Abstract [facility] CONVERSIONS Dental, Provider, DDS Social History Tobacco [...] Description 06/11/2025 2:30 PM EST Office Visit [facility] MED & PEDS [address] [place] [address] Qamar Mittal CNP 505 [place] [address] documented as of this encounter Visit Diagnoses Not on filedocumented in this encounter Care Teams Utility Forester Relationship Specialty Start Date End Date Qamar Mittal CNP [address] [place] [address] PCP - General Family Medicine 02/04/25 documented as of this encounter
--- OUTSIDE RECORDS SUMMARY | 2025-04-13 13:58 | XMS_ITS | Encounter Summary ---
Author Organization [employer] Address [address] 7t [place] [address] Care Team Providers Care Cloth Bale Header Name Role Phone Qamar Mittal CNP Primary Care Provider +1 [phone] Encounter Details Date Type Department Care Team ([facility] Contact Info) Description 03/07/2024 Orders Only [facility] MED & PEDS [address] [place] [address] Daiana Trevino MD 505 [place] [address] Social History Tobacco Use Types Packs/Day Years [...] Description 06/11/2025 2:30 PM EST Office Visit [facility] MED & PEDS [address] [place] [address] Qamar Mittal CNP 505 [place] [address] documented as of this encounter Visit Diagnoses Not on filedocumented in this encounter Additional Health Concerns Assessment Noted Time PHQ-9 Depression Total Score: 5 06/20/19 24 9:37 AM EST documented as of this encounter Care Teams Cloth Bale Header Relationship Specialty Start Date End Date Qaamr Mittal CNP 505 [place] [address] PCP - General Family Medicine 02/04/25 documented as of this encounter
--- OUTSIDE RECORDS SUMMARY | 2025-04-13 13:58 | XMS_ITS | Encounter Summary ---
Author Organization [employer] Address [address] [facility] 7t [place] [address] Care Team Providers Care Inspector Dials Name Role Phone Qamar Mittal CNP Primary Care Provider +1 [phone] Reason for Visit * Reason Onset Date Comments chart prep 04/08/2025 Encounter Details Date Type Department Care Team ([facility] Contact Info) Description 04/08/2025 Telephone [facility] MED & PEDS [address] [place], [place] [phone] Qamra Mittal CNP [address] [place] [address] chart prep Social History Tobacco Use Types [...] Description 06/11/2025 2:30 PM EST Office Visit [facility] MED & PEDS [address] [place] [address] Qamar Mittal CNP 505 [place] [address] documented as of this encounter Goals Goal [...] documented as of this encounter Care Teams Inspector Dials Relationship Specialty Start Date End Date aQmar Mittal CNP [address] [place] [address] PCP - General Family Medicine 02/04/25 documented as of this encounter
--- OUTSIDE RECORDS SUMMARY | 2025-04-13 13:58 | XMS_ITS | Encounter Summary ---
Author Organization [employer] Address [address] [facility] 7t [place] [address] Care Team Providers Care Strategic Partner Development Manager Name Role Phone Kyrie Taykarlenehugo LEILA Primary Care Provider +1 [phone] Reason for Visit * Reason Onset Date Comments Appointment Request 04/05/2023 Encounter Details Date Type Department Care Team ([facility] Contact Info) Description 04/05/2023 Telephone [facility] MEDICINE [address] [place], [place] [phone] Daiana Trevino MD [address] [place] [address] Appointment Request Social History Tobacco Use Types [...] - 04/05/2023 2:46 PM EST Tc from [place] with [facility] insurance requesting a PE appt for program Please contact pt @ [phone] documented in this encounter Plan of Treatment Upcoming Encounters Date Type Department Care Team (Late Contact Info) Description 06/11/2025 2:30 PM EST Office Visit [facility] MED & PEDS [address] [place] [address] Qamar Mittal CNP [address] [facility] [place] [address] documented as of this encounter Visit Diagnoses Not on filedocumented in this encounter Care Teams Strategic Partner Development Manager Relationship Specialty Start Date End Date Qamar Mittal CNP [address] [facility] [place] [address] PCP - General Family Medicine 02/04/25 documented as of this encounter
--- OUTSIDE RECORDS SUMMARY | 2025-04-13 13:58 | XMS_ITS | Data Portability ---
Author Organization [place] [facility] Address [address] [place] [address] Assessment Encounter Date Assessment Date Assessment LastModified [...] of continued conservative management versus surgical management. [email or web address] Not available 12/04/2023 15:12:58 03/06/2024 03/06/2024 I [...] of continued conservative management versus surgical management. [email or web address] Not available 03/05/2024 14:36:30 06/16/2024 06/16/2024 I [...] versus surgical management. Not available 06/16/2024 12:59:53 10/30/2024 10/30/2024 I [...] of continued conservative management versus surgical management. [email or web address] Not available 02/15/2025 19:44:57 Plan of Treatment [...] knee xrays. rm 211 2024 025 [email or web address] [place] [facility], [address] [facility], [place], [address], 02/25/2025 12:37:32 Medication Orders None recorded. Patient TargetsNo targets recorded. Patient InstructionsNo instructions recorded. Reason for Referral None Reported. Results Created Date Observation Date Name Description Value Unit Range Abnormal Flag Note LastModifiedBy Organization Detail LastModifiedTime 02/17/2002/16/2025 XR, knee, 4 or more view http:/ [email or web address] ?Encry pted=s hAaTro YD8dLq bEUv6g %2BXZw aYqtaq 0bqfl% 2Fg9IQ a4ajBk vP9nXo QUaueC m3YtLR FvZlgJ JJ8mAn HZtai3 6u7844 AC0KlY nmGU6a iKiQtr MwF INTERFACE [facility] [address], [place], [address], 02/16/2025 09:50:23 02/17/2002/16/2025 XR, knee, 4 or more view http:/ [email or web address] ?Encry pted=s hAaTro YD8dLq bEUv6g %2BXZw aYqtaq 0bqfl% 2Fg9IQ a4ajBk vP9nXo QUaueC m3YtLR FvZlgJ JJ8mAn HZtai3 9h6234 AC0KlY nmGU6a iKiQtr MwF INTERFACE [facility] [address], [place], [address], 02/16/2025 09:50:25 Result Notes Documentation Provider Name and Address Organization Details Recorded Time Xr, Knee, 4 Or More View : [email or web address]? Encrypted=wjZuKncKN3iGipP Uv6g%0RWDliTudph4zuaf%2Fg 3REj0saVpaN7tKcIXoaxTi9Rc BLVcZqnMCB6eMsFKhpj41v277 8GO1PrNddAA3phFyPtuQxO Not Available [facility] 02/16/2025 09:50: 24 Xr, Knee, 4 Or More View : [email or web address]? Encrypted=itLuMsaQR7zNzzF Uv6g%2YCQxtYtwbe6afcb%2Fg 4HEj8vmUrgE5mAzFXlebFe8Ss EBWbXfbEDM1yVaYMhft05t086 1ZY7SeIzcWA8jkTmZflQcS Not Available [facility] 02/16/2025 09:50: 25 Problems Name Problem SNOMED Code Status Onset Date Resolution Date Notes Provider Name and Address Organization Details Recorded Time Pain of bilateral knee regions 14077993524539 2 Active 2024 ELFEGO Arellano'HEURVY benson, [facility] 09:39:45 Problem Notes None recorded. Procedures Surgical History Date Name Laterality Status Provider Name and Address Organization Details Recorded Time 02/16/2025 JZNICHOLASEE INJ Frankie completed Chi Fierro PA-C [address] [facility] [address], [place], [address], [facility] 02/15/2025 19:44:52 10/30/2024 JZKNEE INJ Frankie completed Chi Fierro PA-C [address], [place], [address], [facility] 10/29/2024 14:59:39 06/16/2024 JZKNEE INJ Frankie completed Chi Fierro PA-C [address], [place], [address], [facility] 06/16/2024 08:05:41 06/09/2024 JZKNEE INJ Frankie cancelled Chi Fierro PA-C [address], [place], [address], [facility] 06/09/2024 12:48:39 03/06/2024 JZKNEE INJ Frankie completed Chi Fierro PA-C [address], [place], [address], [facility] 03/05/2024 14:36:22 12/04/2023 JZKNEE INJ Frankie completed Chi Fierro PA-C [address], [place], [address], [facility] 12/04/2023 08:17:20 09/06/2023 Sports Knee 4&1 completed Chi Fierro PA-C [address], [place], [address], [facility] 09/06/2023 12:35:54 Imaging [...] Updated DateTime 06/16/2024 154.94 cm 37 kg/m2 58635.1 g KAYLIA L'HEUREUX [place] [facility] 06/16/2024 12:53:55 Date Recorded Body height Body mass index (BMI) Body weight Provider Name and Address Organization Details Last Updated DateTime 10/30/2024 154.94 cm 37 kg/m2 46658.1 evan Patel [facility] 10/30/2024 10:38:25 Date Recorded Body height Body mass index (BMI) Body weight Provider Name and Address Organization Details Last Updated DateTime 12/04/2023 154.94 cm 37 kg/m2 02561.1 evan KAYLIA L'HEUREUX [facility] 12/04/2023 15:03:01 Date Recorded Body height Body mass index (BMI) Body weight Provider Name and Address Organization Details Last Updated DateTime 02/16/2025 154.94 cm 37 kg/m2 55905.1 g KAYLIA L'HEUREUX [facility] 02/16/2025 09:37:43 Date Recorded Body height Body mass index (BMI) Body weight Provider Name and Address Organization Details Last Updated DateTime 03/06/2024 154.94 cm 37 kg/m2 66125.1 g KAYLIA L'HEUREUX [facility] 03/06/2024 15:47:23 Social History Question Answer Notes LastModified by Organizat ion Details LastModified Time Tobacco Smoking Status Never Smoker EVANYLIA L'HEUREUX [facility] 07/11/2023 15:03:03 What Is Your Relationship [...] N Kidney/Bladder Problems N Vascular Disease N Gastrointestinal Disease N Heart Attack ([place]) N Cholesterol Y Diabetes Y Autoimmune disease [...] ICD10 Code Diagnosis IMO Codes Diagnosis Note [id number] Chi Fierro PA-C [facility] [address] [place] [address] 07/11/2023 14:38:06 07/12/2023 07:58:16 Bilateral osteoarthritis of knees [id number] 63782 M17.0 [id number] Chi Fierro PA-C [facility] [address] [place] [address] 09/06/2023 15:40:30 09/27/2023 15:02:46 Bilateral osteoarthritis of knees 1282358232 05800 M17.0 [id number] Chi Fierro PA-C [facility] [address] [place] [address] 12/04/2023 14:49:34 12/28/2023 12:23:49 Bilateral osteoarthritis of knees 0366816886 20536 M17.0 [id number] Chi Fierro PA-C [place] [address] [place] [address] 03/06/2024 15:41:03 04/07/2024 12:00:28 Primary gonarthrosis, bilateral 551341744 M17.0 0317242 [id number] Chi Fierro PA-C [facility] [address] [place] [address] 06/16/2024 12:48:05 06/30/2024 18:45:02 Primary gonarthrosis, bilateral 972823488 M17.0 9969770 [id number] Chi Fierro PA-C [facility] [address] [place] [address] 10/30/2024 10:32:46 11/10/2024 11:44:55 Primary gonarthrosis, bilateral 661423438 M17.0 0888251 [id number] Chi Fierro PA-C [facility] [address] [place] [address] 02/16/2025 09:20:34 02/25/2025 12:37:32 Primary gonarthrosis, bilateral 656604658 M17.0 [id number] Pain of bi lateral knee regions 1481015282 08475 M25.561 M25.562 [id number] Health Concerns Section Related Observation LastModified by Organization Detai ls LastModified Time None Recorded Concern Status LastModified by Organization Details LastModified Time None Recorded Advance Directives Directive None Recorded Payers Insurance Date Sequence Insurance Name Policy Number Policy Collado Covered Member ID Collado Member ID Guarantor Name 02/25/2025 1 [facility] (MEDICARE REPLACEMENT/A DVANTAGE - HMO) Yuliet Underwood [id number] Yuliet Underwood OBGyn Episode No OBEpisode recorded.
--- OUTSIDE RECORDS SUMMARY | 2025-04-13 13:58 | XMS_ITS | Encounter Summary ---
Author Organization [facility] Address [address] [place] [address] 7 [place] [address] Care Team Providers Care Dye House Vat Worker Name Role Phone Qamar Mittal CNP Primary Care Provider +1 -[phone] Encounter Details Date Type Department Care Team (Late st Contact Info) Description 08/18/2022 Orders Only [facility]EDS [address] [place] [address] Melanie Henson LPN Social History Tobacco Use [...] 2:30 PM EST Office Visit [facility] [address] [place] [address] Qamar Mittal CNP [address] [place] [address] documented as of this encounter Visit Diagnoses Not on filedocumented in this encounter Care Teams Dye House Vat Worker Relationship Specialty Start Date End Date Qamar Mittal CNP [address] [place] [address] PCP - General Family Medicine 02/04/25 documented as of this encounter
--- OUTSIDE RECORDS SUMMARY | 2025-04-13 13:58 | XMS_ITS | Clinical Summary ---
Author Organization [employer] Address [address] [place] [address] 7[address] [place] [address] Care Team Providers Care Telescope Repairer Name Role Phone Qamar Mittal CNP Primary Care Provider [phone] Allergies Active Allergy Reactions Criticality Noted Date Comments Statins High 03/10/2025 Other Reaction(s): SEVERE DIARRHEA Medications fluticasone (Flonase) 50 MCG/ACT nasal spray INHALE ONE OR TWO SPRAYS IN EACH NOSTRIL DAILY NEEDED 16 g 3 023 Active insulin pen needle (UltiCare Short Pen Narvon) 31G X 8 mm miscIndicatio ns:Type 2 [...] use of insulin ([facility]) USE TO TEST BLOOD SUGAR ONCE A DAY 1 kit Active Alcohol Swabs (Alcohol Prep) 70 % pads USE FIVE TIMES DAILY 100 each 11 Active glucose blood (Accu-Chek Guide Test) test stripIndicati ons:Type 2 diabetes mellitus without complication, with long-term current use of insulin ([facility]) Check sugars twice daily 100 each 11 025 2025 Active Blood Glucose Monitoring Suppl (Accu-Chek Guide) w/Device kitIndication s:Type 2 diabetes mellitus without complication, with long-term current use of insulin ([facility]) Check sugars twice daily 1 kit 3 Active Accu-Chek Softclix Lancets lancetsIndica tions:Type 2 diabetes mellitus without complication, with long-term current use of insulin ([facility]) Use as instructed 100 each 12 025 2025 Active triamterene-h ydroCHLOROthi azide (Dyazide) 37.5-25 MG capsule TAKE ONE CAPSULE EVERY MORNING 30 capsule 11 Active sertraline (Zoloft) 25 MG tablet TAKE ONE TABLET EVERY MORNING 30 tablet 3 Active Tirzepatide (Mounjaro) 2.5 MG/0.5ML solution auto-injector Indications:T ype 2 diabetes mellitus without complication, with long-term current use of insulin ([facility]) Inject 2.5 mg under the skin 1 (one) time per week. 2 mL Active dapagliflozin (Farxiga) 10 MGIndications :Type 2 diabetes mellitus without complication, with long-term current use of insulin ([facility]),Stage 4 chronic kidney disease (CMS/HCC) ([facility]) Take 1 tablet (10 mg) by mouth [...] use of insulin ([facility]) INJECT 35 UNITS SUBCUTANEOUSLY EVERY NIGHT AT BEDTIME 15 mL 5 3:06 PM EST Active gemfibrozil (Lopid) 600 MG tablet Take 600 mg by mouth. Active tiZANidine (Zanaflex) 4 MG tabletIndicat ions:Type 2 diabetes mellitus without complication, with long-term current use of insulin ([facility]) Take 1 tablet (4 mg) by mouth every 8 (eight) hours if needed for muscle spasms. 30 tablet 5 2:59 PM EST 2024 Active Tirzepatide (Mounjaro) 2.5 MG/0.5ML solution auto-injector Indications:T ype 2 diabetes mellitus without complication, with long-term current use of insulin ([facility]) Inject 2.5 mg under the skin 1 [...] [facility] [address] [place] [address] Qamar Mittal CNP Type 2 diabetes mellitus without complication, with long-term current use of insulin (HCC) (Primary Dx); Erosive gastritis; Dizziness 04/10/2025 Travel 04/08/2025 Telephone [facility] [address] [place] [address] Qamar Mittal CNP chart prep 04/01/2025 Refill [facility] [address] [place] [address] Kim Patterson MD Type 2 diabetes mellitus without complication, without long-term current use of insulin (HCC) 03/25/2025 Patient Outreach [facility] [address] [place] [address] Qamar Mittal CNP Transition Of Care (Tcm) (HDF scheduled and SDOH screening completed on 10/15/24 ) 03/25/2025 Telephone [facility] [address] [place] [address] Rose Gomez PharmD 03/23/2025 3:00 PM EST Office Visit [facility] [address] [place] [address] Luis Miguel Delatorre DMD Denture irritation (Primary Dx) 03/20/2025 Refill [facility] [address] [place] [address] Daiana Trevino MD 03/10/2025 Orders Only GENERIC EXTERNAL DATA DEPARTMENT Provider, Generic External Data 03/09/2025 3:00 PM EST Office Visit [facility] [address] [place] [address] Luis Miguel Delatorre DMD Denture irritation (Primary Dx) 03/05/2025 Orders Only [facility] External Provider, [facility] 02/26/2025 2:00 PM EST Office Visit [facility] [address] [place] [address] Luis Miguel Delatorre DMD Partial edentulism, unspecified edentulism class (Primary Dx); Periodontal disease 02/19/2025 1:00 PM EDT Office Visit [facility] [address] [place] [address] Qamar Mittal CNP Stage 4 chronic kidney disease (CMS/HCC) (HCC) (Primary Dx); Type 2 diabetes mellitus without complication, with long-term current use of insulin (HCC); Encounter for vaccination; Anxiety 02/19/2025 Travel 02/17/2025 Refill [facility] [address] [place] [address] Daiana Trevino MD 02/11/2025 1:00 PM EDT Office Visit [facility] [address] [place] [address] Juan Ramon, Luis Miguel, DMD Partial edentulism, unspecified edentulism class (Primary Dx) 02/11/2025 Patient Outreach [facility] [address] [place] [phone] Qamar Mittal CNP Pre-visit Planning ([facility] screening completed on 10/15/24) 02/10/2025 Travel 02/07/2025 Refill [facility] [address] [place] [address] Daiana Trevino MD 02/04/2025 5:40 PM EDT Office Visit [facility] [address] [place] [address] Selena Rhoades NP Muscle pain (Primary Dx); Hypertriglyceridemi a 02/04/2025 Telephone [facility] [address] [place] [address] Qamar Mittal CNP ICD-10 CODE 02/04/2025 Travel 02/04/2025 Telephone [facility] [address] [place] [address] Whitney Mina MA Chart Prep 02/03/2025 Telephone [facility] [address] [place] [address] Daiana Trevino MD 01/27/2025 2:00 PM EDT Office Visit [facility] [address] [place] [address] Luis Miguel Delatorre, DMD Partial edentulism, unspecified edentulism class (Primary Dx) 01/23/2025 Refill [facility] [address] [place] [address] Daiana Trevino MD 01/21/2025 Refill [facility] [address] [place] [address] Daiana Trevino MD Type 2 diabetes mellitus without complication, with long-term current use of insulin ([facility]) 01/13/2025 2:00 PM EDT Office Visit [facility] [address] [place] [address] Jerry Griffin Partial edentulism, unspecified edentulism class (Primary Dx); Dental calculus from Last 3 Months Immunizations Immunization Administration Dates Next Due Influenza, IIV3, injectable 01/28/2014 Influenza, Split (incl. regulo fied surface antigen) 03/26/2013,01/19/2012 Moderna Covid-19 Vaccine 12+ 04/28/2021 Pfizer Covid-19 Vaccine 12+ 02/19/2025,,02/22/2023 Pneumococcal Conjugate [...] [facility] [address] [place] [address] Qamar Mittal, [facility] [address] [place] [address] Health Maintenance Due Date Last Done Comments [...] Plan Weekly blood pressure task No Roselyn Stern[place]EN, [place] Patient has chronic kidney disease Care [...] Priority Date/Time Associated Diagnosis Comments POCT GLUCOSE (CPT-19447) Routine 04/10/2025 2:05 PM EST Type 2 diabetes mellitus without complication, with long-term current use of insulin ([facility]) DENTURE FOLLOWUP Routine 03/23/2025 3:00 PM EST [...] 2:00 PM EST Periodontal disease POCT GLUCOSE (CPT-79303) Routine 02/19/2025 2:04 PM EDT Type 2 [...] complication, with long-term current use of insulin ([facility]) PANORAMIC RADIOGRAPHIC IMAGE Routine 07/09/2024 3:00 PM EDT Periodontal disease Dental caries from Last 3 Months or Most Recently Relevant to Health Maintenance Results * (ABNORMAL) POCT glucose manually resulted (04/10/2025 2:05 PM EST) Only the most recent of2 resultswithin the time period is included. Glucose Blood, POC 200 60 - 200 mg/dL QC Media Lot # Comment:[id number] Lot# Expiration Date Comment:07/28/2025 Blood Capillary blood specimen / Unknown 04/10/2025 2:05 PM EST [facility] POINT OF CARE TEST ENTER/ EDIT ORDERABLES Final Result * (ABNORMAL) Glucose, Whole Blood (03/10/2025 4:26 PM EST) Only the most recent of2 resultswithin the time period is included. Glucose, Whole Blood 127(H) 60 - 115 mg/dL [facility] Comment:METER #: [id number] 03/10/2025 4:26 PM EST 03/10/2025 5:37 PM EST Generic External Data Provider LAB BLOOD ORDERAB LES Final Result [facility] [address] [place] [phone] * CT Abdomen Pelvis w/o Contrast (03/10/2025 4:09 PM EST) Anatomical Region Laterality Modality Body, Pelvis, Abdomen Computed T omography 03/10/2025 4:09 PM EST Narrative 03/10/2025 4:47 PM EST [address] [address] [address] Scan Report Signed Patient: Yuliet Underwood MR#: [id number] 992 : 1945 Acct:[id number] Age/Sex: 79 / F ADM Date: 03/10/25 Loc: HO.ED Attending Dr: Ordering Physician: Juana Dougherty Date of Service: 03/10/25 Procedure(s): CT abdomen pelvis wo IV con Accession Number(s): [id number] cc: Juana Dougherty; Daiana Trevino MD Report Number: [id number]: Total DLP = 733.00 mGy-cm Reason for [...] by: Hunter Lazo MD 03/10/2025 04:44 PM [facility] Dictated By: Hunter Lazo MD Signed By: <Electronically signed by Hunter Lazo MD in OV> 03/10/25 1644 DD/ 1609 TD/TT: 03/10/25 1621 [employer]: Procedure Note Donotuseinterpreter, Image - 03/10/[address] [address] [address] Scan Report Signed Patient: Everton Underwood#: [id number] : 6Acct:[id number] Age/Sex: 79 / FADM Date: 03/10/25 Loc: HO.ED Attending Dr: Ordering Physician: Juana Dougherty Date of Service: 03/10/25 Procedure(s): CT abdomen pelvis wo IV con Accession Number(s): [id number] cc: Juana Dougherty; Daiana Trevino MD Report Number: [id number]: Total DLP = 733.00 mGy-cm Reason for [...] 03/10/25 1644 DD/ 1609 TD/TT: 03/10/25 1621 [employer]: [facility] External Provider IMG CT PROCEDURES Final Result * US Pelvis Transvaginal (03/05/2025 1:15 PM EST) Anatomical Region Laterality Modality Pelvis Ultrasound 03/05/2025 1:15 PM EST Narrative 03/05/2025 2:09 PM EST [address] [address] Ultrasound Report Signed Patient: Yuliet Underwood MR#: [id number] : 1945 Acct:[id number] Age/Sex: 79 / F ADM Date: 03/05/25 Loc: HO.US Attending Dr: Clint Damon MD Ordering Physician: Clint Damon MD Date of Service: 03/05/25 Procedure(s): US pelvic and transvaginal Accession Number(s): [id number] cc: Daiana Trevino MD; Clint Damon MD [...] Dov De Guzman MD 03/05/2025 02:06 PM [facility] Dictated By: Dov Munoz MD Signed By: <Electronically signed by Dov Brown MD in OV> 03/05/25 1406 DD/ 1315 TD/TT: 03/05/25 1332 [employer]: Procedure Note Donotuseinterpreter, Image - 03/05/[address] [address] Ultrasound Report Signed Patient: Everton Underwood#: [id number] 992 : 6Acct:[id number] Age/Sex: 79 / FADM Date: 03/05/25 Loc: HO.US Attending Dr: Clint Damon MD Ordering Physician: Clint Damon MD Date of Service: 03/05/25 Procedure(s): US pelvic and transvaginal Accession Number(s): [id number] cc: Daiana Trevino MD; Clint Damon MD [...] Dov De Guzman MD 03/05/2025 02:06 PM [facility] Dictated By: Dov Munoz MD Signed By: <Electronically signed by Dov Brown MDin OV> 03/05/25 1406 DD/ 1315 TD/TT: 03/05/25 1332 [employer]: [facility] External Provider IMG US PROCEDURES Final Result * (ABNORMAL) POCT A1c (02/19/2025 2:03 PM EDT) Hemoglobin A1C 8.3(A) 4.0 - 5.7 % QC Media Lot # Comment:[id number] Lot# Expiration Date Comment:08/14/2026 Blood 02/19/2025 2:03 PM EDT [facility] POINT OF CARE TEST ENTER/ EDIT ORDERABLES Final Result * (ABNORMAL) Hemoglobin A1c (02/06/2025 10:20 AM EDT) Hemoglobin A1c 8.6(H) <6.0 % [facility] Comment:Hemoglobin A1C Refer ence Range Adults: 4.8 - 6.0 % Non diabetic: < 6.0 % Goal: < 7.0 %Additional Action Suggested: > 8.0 %Note: Hemoglobin A1c results are invalid for patients with abnormal amounts of HbF. Blood transfusions may impact the HbA1c concentration in the patient sample. Estimated Average Glucose 200 mg/dL [facility] Comment:eAG = Estimated ave rage glucose which is %A1C expressed asaverage glucose, using the formula of the V8Y-EpcmwkqVibnoec Glucose study (ADAG), Diabetes Care, Vol.31,#8,Nov. 2007 Blood Venous blood specimen / Unknown 02/06/2025 10:20 AM EDT 02/06/2025 2:38 PM EDT Daiana Trevino MD LAB BLOOD ORDERABLES Final Resul t [facility] [address] [place] [phone] * Hepatic Function Panel (02/06/2025 10:20 AM EDT) Bilirubin, Total 0.2 0.0 - 1.0 mg/dL [facility] Bilirubin, Direct <0.2 0.0 - 0.5 mg/dL [facility] Aspartate Amino Transferase 29 5 - 31 U/L [facility] Alanine Aminotransferase 11 0 - 31 U/L [facility] Total Protein 7.1 6.5 - 8.0 g/dL [facility] Albumin Level 4.6 3.5 - 5.0 g/dL [facility] Alkaline Phosphatase 48 39 - 117 U/L [facility] Blood Venous blood specimen / Unknown 02/06/2025 10:20 AM EDT 02/06/2025 2:38 PM EDT Daiana Trevino MD LAB BLOOD ORDERABLES Final Resul t Performing Organization Address [facility] de Phone Number [facility] [address] [place] [phone] * (ABNORMAL) Lipid Panel, Standard (02/06/2025 10:20 AM EDT) Triglycerides 430(H) <150 mg/dL [facility] Comment:Slight Lipemia.Jenna able Triglyceride: less than 150 mg/dLBorderline High Triglyceride 150-199 mg/dLHigh Triglyceride: 200-499 mg/dLVery High Triglyceride: greater than or equal to 5OO mg/dL Cholesterol 152 <200 mg/dL [facility] Comment:Desirable Cholestero l: less than 200 mg/dLBorderline High Cholesterol: 200-239 mg/dLHigh Cholesterol: greater than 239 mg/dL LDL Cholesterol Calculated TNP <100 mg/dL [facility] Comment:Unable to calculate the LDL. The formula of Friedwald,Degroot, and Gemma is only valid if the triglycerides areless than 400 mg/dl. HDL Cholesterol 27(L) >40 mg/dL [facility] Comment:Desirable HDL: great er than 40 mg/dL Note: This HDL assay may give artificially low results in patients with liver disease. Blood Venous blood specimen / Unknown 02/06/2025 10:20 AM EDT 02/06/2025 2:38 PM EDT Daiana Trevino MD LAB BLOOD ORDERABLES Final Resul t Performing Organization Address [facility] Co de Phone Number [facility] [address] [place] [phone] * (ABNORMAL) Basic Metabolic Panel (02/06/2025 10:20 AM EDT) Sodium 142 135 - 145 mmol/L [facility] Potassium 4.3 3.3 - 5.1 mmol/L [facility] Chloride 105 96 - 108 mmol/L [facility] Carbon Dioxide 24 22 - 29 mmol/L [facility] Anion Gap 17 12 - 20 [facility] Urea Nitrogen (BUN) 49(H) 9 - 16 mg/dL [facility] Creatinine, Serum 1.79(H) 0.5 - 1.4 mg/dL [facility] Estimated Glomerular Filt Rate 27 [facility] Comment:Chronic Kidney Disea se: Estimated GFR < 60 mL/min/1.97c1Mqaavd Kidney Disease: Estimated GFR < 15 mL/min/1.73m2 Glucose 152(H) 60 - 115 mg/dL [facility] Calcium 10.5(H) 8.4 - 10.2 mg/dL [facility] Blood Venous blood specimen / Unknown 02/06/2025 10:20 AM EDT 02/06/2025 2:38 PM EDT us Daiana Trevino MD LAB BLOOD ORDERABLES Final Resul t [facility] [address] [place] [phone] * (ABNORMAL) Albumin, Random Urine W/Creatinine (11/17/2024 10:03 AM EDT) Creatinine, Urine 115.32 mg/dL [facility] Microalbumin Urine 99.0 mg/L [facility] Microalbum Creatinine Ratio Ur 85.8(H) <30 ug/mg cr [facility] Comment:Albumin/Creatinine R atio Reference Ranges: Normal: < 30 ug/mg creatinine Microalbuminuria: 30 - 300 ug/mg creatinineClinical Albuminuria: > 300 ug/mg creatinine 11/17/2024 10:0 3 AM EDT 11/17/2024 2:53 PM EDT us Daiana Trevino MD LAB URINE ORDERABLES Final Resul t [facility] [address] [place] [phone] [phone] from Last 3 Months or Most [...] Patient has chronic kidney disease 04/08/2025 Insurance [facility] DUAL COMPLETE [facility] Care Teams Telescope Repairer Relationship Specialty Start Date End Date Qamar Mittal CNP [address] [facility] [place] [address] PCP - General Family Medicine 02/04/25
== END 2025-04-10 14:34 | disposition home or self-care (01) ==
LOC: HO.LNP 15:25
PROVIDERS: Visit Provider Internal Medicine Gastroenterology
DX: Z11.0 Encounter for screening for intestinal infectious diseases (principal)
CPT/HCPCS: 83013

== ENCOUNTER 2025-04-15 10:30 | Outpatient (REF) | payer OTHER, SELFPAY ==
--- OUTSIDE RECORDS SUMMARY | 2025-04-10 14:00 | XMS_ITS | Encounter Summary ---
Author Organization [employer] Address [address] [facility] 7 [place] [address] Care Team Providers Care Training Mgr Name Role Phone Qamar Mittal CNP Primary Care Provider [phone] Reason for Visit * Reason Comments Follow-up HDF Encounter Details Date Type Department Care Team ([facility] Contact Info) Description 04/10/2025 2:00 PM EST Office Visit [facility] [address], [place] [phone] Qamar Mittal CNP [address] [place] [address] Type 2 diabetes mellitus without complication, with long-term current use of insulin ([facility]) (Primary Dx); Erosive gastritis; Dizziness Social History Tobacco Use Types Packs/Day Years [...] your housing situation today? I have shaina dinorah 10/15/[address] you li [...] Sign Reading Time Taken Comments Blood Pressure 110/62 04/10/2025 2:03 PM EST Pulse 76 04/10/2025 2:03 PM EST Temperature 36.2 C (97.1 F) 04/10/2025 2:03 PM EST Respiratory Rate 18 04/10/2025 2:03 PM EST Oxygen Saturation 98% 04/10/2025 2:03 PM EST Inhaled Oxygen Concentration - - Weight 87.5 kg (193 lb) 04/10/2025 2:03 PM EST Height 154.9 cm (5' 1 ) 04/10/2025 2:03 PM EST Body Mass Index 36.47 04/10/2025 2:03 PM EST documented in this encounter Progress Notes * Qamar Mittal CNP - 04/10/2025 2:00 PM EST Subjective Patient ID: Yuliet Underwood is a 79 y.o. female who presents for HDF Visit. [facility] (03/10/25-03/14/25) Patient with PMH of obesity, VIRI, arthritis, diabetes, CKD, hypertension presented for evaluation of abdominal pain. EGD showed erosive gastritis with ulcer. Concern for possible PUD given NSAID use,patient to continue on pantoprazole twice a day x 3 months and sucralfate x 2 weeks. Patient to follow up with GI and avoid NSAIDs. H. Pylori testing sent. Patient had persistent hypoglycemia in the ER and glipizide was discontinued and metformin dose was decreased. Started on atorvastatin and ezetimibe for hyperlipidemia, then transitioned to rosuvastatin. Gemfibrozil discontinued. Triamterene held given BP. Patient discharged home. Medication changes that occurred during hospitalization include: Added Ezetimibe 10 mg once daily Rosuvastatin 20 mg once daily Pantoprazole 40 mg twice a day Sucralfate 1 gram twice a day Changed Metformin 1000 mg twice a day decreased to 500 mg twice a day Discontinued Gemfibrozil, glipizide Today - pt presents with concern regarding her hypoglycemia which she had when she was hospitalized. She does endorse some ongoing dizziness and lightheadedness and low blood pressure readings at home, sheattributed this to possible furosemide use and wanted to know why she was taking this med. -she reports a history of lower extremity edema and ankle swelling. She denies history of chronic HF or fluid overload, she denies current swelling of feet and ankles. -In regards to her DM, she reports she has been tolerating Mounjaro and Farxiga (both new meds t pt) well. -she reports she has recently started taking her lantus consistently since being discharged from ED. -prior to ED visit she was not taking lantus consistently which is why we initiated oral medications. -She presents her BGM today with fasting readings in the 140s. Her post prandial reading today is 200. Review of Systems Objective Vitals: 04/10/25 1403 BP: 110/62 Pulse: 76 Resp: 18 Temp: 97.1 ??F (36.2 ??C) SpO2: 98% Physical Exam Constitutional: Appearance: Normal appearance. She is normal weight. Cardiovascular: Rate and Rhythm: Normal rate and regular rhythm. Pulses: Normal pulses. Heart sounds: Normal heart sounds. No murmur heard. No friction rub. No gallop. Pulmonary: Effort: Pulmonary effort is normal. No respiratory distress. Breath sounds: Normal breath sounds. No wheezing or rales. Neurological: General: No focal deficit present. Mental Status: She is alert and oriented to person, place, and time. Psychiatric: Mood and Affect: Mood normal. Behavior: Behavior normal. Thought Content: Thought content normal. Judgment: Judgment normal. Assessment/Plan Problem List Items Addressed This Visit Dizziness Dizziness is likely a result of episodes of hypoglycemia. However possible component of orthostatic hypotension 2/2 to furosemide use. At this time there is no clear indication for loop diuretic and therefore we will discontinue. Erosive gastritis Pt to continue on protonix and sucralfate x2 weeks. She is to f/u with GI I strongly advised against NSAID use as pt frequently takes advil for her pain. Diabetes (HCC) - Primary Relevant Medications gemfibrozil (Lopid) 600 MG tablet tiZANidine (Zanaflex) 4 MG tablet Tirzepatide (Mounjaro) 2.5 MG/0.5ML solution auto-injector Other Relevant Orders Basic Metabolic Panel POCT glucose manually resulted (Completed) Lab Results Component Value Date HGBA1C 8.3 (A) 02/19/2025 A1c is still above goal and fasting glucose is above 126mg/ dL Pre prandial glucose should improve with consistent lantus use. Reduction of metformin and DC of glipizide will improve hypoglycemia. Continue current meds: -lantus 35 units -metformin 500 BID -Mounjaro 2.5 -Farxiga 10mg -Rosuvastatin 20mg pending BMP which pt is to have completed today, If CrCl < 30 ml/min and patient has been tolerating rosuvastatin, consider switching rosuvastatin to atorvastatin 40 mg once daily as the max recommended dose for rosuvastatin at that CrCl is 10 mg once daily. If CrCl>30ml/min she can continue on lowered dose of metformin, if CrCl <30ml/min we will discontinue metformin. Hospital discharge CrCL: 32.6 Follow up in about 2 months (around 06/11/2025) for F/u DM . documented in this encounter Plan of Treatment Upcoming Encounters Date Type Department Care Team (Late st Contact Info) Description 06/11/2025 2:30 PM EST Office Visit [facility] [address] [place] [address] Qamar Mittal CNP [address] [place] [address] Scheduled Orders Name Type Priority Associated Diagnoses Orde r Schedule Basic Metabolic Panel Lab Routine Type 2 diabetes mellitus without complication, with long-term current use of insulin (HCC) Expected: 04/10/2025 (Approximate), Expires: 04/10/2026 documented as of this encounter Goals Goal [...] Weekly blood pressure task No Amelia Mina Patient has chronic kidney disease Care Plan Patient has chronic kidney disease No Amelia Mina Patient has chronic kidney disease Care Plan Patient has chronic kidney disease No Amelia Mina Weekly blood pressure task Care Plan Weekly blood pressure task No Agueda Gomeza, PharmD Weekly blood pressure task Care Plan Weekly blood pressure task No Jason Rose, PharmD Patient has chronic kidney disease Care Plan Patient has chronic kidney disease No Jason, Rose, PharmD Patient has chronic kidney disease Care Plan Patient has chronic kidney disease No Jason, Rose, PharmD Weekly blood pressure task Care Plan Weekly blood pressure task No GomezChevyysha Weekly blood pressure task Care Plan Weekly blood pressure task No Gomez, Jaysha Patient has chronic kidney disease Care Plan Patient has chronic kidney disease No Gomez Jaysha Patient has chronic kidney disease Care Plan Patient has chronic kidney disease No Gomez, Jaysha Weekly blood pressure task Care Plan [...] Care Plan Weekly blood pressure task No GenevaColon [place], [place] Weekly blood pressure task Care Plan Weekly blood pressure task No Archer-Colon [place], [place] Patient has chronic kidney disease Care Plan Patient has chronic kidney disease No Archer-Colon [place], [place] Patient has chronic kidney disease Care Plan Patient has chronic kidney disease No GenevaColon [place], [place] Weekly blood pressure task Care Plan Weekly blood pressure task No Archer-Colon [place], [place] Weekly blood pressure task Care Plan Weekly blood pressure task No Leena [place], [place] Patient has chronic kidney disease Care Plan Patient has chronic kidney disease No Leena [place], [place] Patient has chronic kidney disease Care Plan Patient has chronic kidney disease No Leena [place], [place] Weekly blood pressure task Care Plan Weekly blood pressure task No Dewayne Hernandez Weekly blood pressure task Care Plan Weekly blood pressure task No Dewayne Hernandez Patient has chronic kidney disease Care Plan Patient has chronic kidney disease No Dewayne Hernandez Patient has chronic kidney disease Care Plan Patient has chronic kidney disease No Dewayne Hernandez Weekly blood pressure task Care Plan Weekly blood pressure task No Julio Del Valle Weekly blood pressure task Care Plan Weekly blood pressure task No Julio Del Valle Patient has chronic kidney disease Care Plan Patient has chronic kidney disease No Julio Del Valle Patient has chronic kidney disease Care Plan Patient has chronic kidney disease No Julio Del Valle documented as of this encounter Procedures Procedure Name Priority Date/Time Associated Diagnosis Comments POCT GLUCOSE (CPT-71675) Routine 04/10/2025 2:05 PM EST Type 2 diabetes mellitus without complication, with long-term current use of insulin (HCC) documented in this encounter Results * (ABNORMAL) POCT glucose manually resulted (04/10/2025 2:05 PM EST) Pathologist [facility] Glucose Blood, POC 200 60 - 200 mg/dL QC Media Lot # Comment:[id number] Lot# Expiration Date Comment:07/28/2025 Blood Capillary blood specimen / Unknown 04/10/2025 2:05 PM EST [facility] POINT OF CARE TEST ENTER/ EDIT ORDERABLES Final Result documented in this encounter Visit Diagnoses Diagnosis Type 2 diabetes mellitus without complication, with long-term current use of insulin ([facility])- Primary Erosive gastritis Other specified gastritis with hemorrhage Dizziness Dizziness and giddiness documented in this encounter Additional Health Concerns Active [...] kidney disease 04/08/2025 Weekly blood pressure task 04/14/2025 Weekly blood pressure task 04/14/2025 Patient has chronic kidney disease 04/14/2025 Patient has chronic kidney disease 04/14/2025 Weekly blood pressure task 04/14/2025 Weekly blood pressure task 04/14/2025 Patient has chronic kidney disease 04/14/2025 Patient has chronic kidney disease 04/14/2025 Assessment Noted Time PHQ-9 Depression Total Score: 0 12/30/19 11:36 AM EDT documented as of this encounter Care Teams Training Mgr Relationship Specialty Start Date End Date Qamar Mittal CNP [address] [place] [id number] PCP - General Family Medicine 02/04/25 documented as of this encounter
--- OUTSIDE RECORDS SUMMARY | 2025-04-15 10:36 | XMS_ITS | Encounter Summary ---
Author Organization [employer] Address [address] [place] [address] Care Team Providers Care Data Processing Systems Project Planner Name Role Phone Qamar Mittal CNP Primary Care Provider [phone] Reason for Visit * Reason Comments Med Refill Encounter Details Date Type Department Care Team ([facility] Contact Info) Description 02/07/2025 Refill [facility] [address] [place], [place] [phone] Daiana Trevino MD [address] [place], [place] [phone] Social History Tobacco Use Types Packs/Day Years [...] Upcoming Encounters Date Type Department Care Team ([facility] Contact Info) Description 06/11/2025 2:30 PM EST Office Visit [facility] [address] [place] [address] Qamar Mittal CNP [address] [place] [address] documented as of this encounter Visit Diagnoses Not on filedocumented in this encounter Additional Health Concerns Assessment Noted Time PHQ-9 Depression Total Score: 0 12/30/19 11:36 AM EDT documented as of this encounter Care Teams Data Processing Systems Project Planner Relationship Specialty Start Date End Date Qamar Mittal CNP [address] [place] [address] PCP - General Family Medicine 02/04/25 documented as of this encounter
--- OUTSIDE RECORDS SUMMARY | 2025-04-15 10:36 | XMS_ITS | Continuity of Care Document ---
Author Organization KATHYA - [facility], ZHANG Levy 2nd floor Address [address] [place] [address] Support Name Relationship Address Phone LORRIEYULIET self [address] [place] [address] Assessment Encounter Date Assessment Date Assessment LastModified [...] Treatment Reminders Order Date Submit Date Provider Name Organization Details Last Modified By Last Modified Time Details Appointments RECHEC K 15 2025 03:00P M Chi Fierro PA-C Not available Not available Not available Lab None record ed. Referral None record ed. Procedures None record ed. Surgeries None record ed. Imaging XR, knee, 4 or more view 2024 09:41: 23 025 Chi Fierro PA-C [facility] [address], [place], [address], [facility] 02/25/2025 12:37:32 MedicationOrders None record ed. VaccineOrders None record ed. Patient TargetsNo targets recorded. Patient InstructionsNo instructions recorded. Reason for Referral None Reported. Results Created Date Observation Date Name Description Value Unit Range Abnormal Flag Specimen Type Note LastModifiedBy Organization Detail LastModifiedTime 02/16/2025 02/16/2025 knee 4 view [email or web address]=fePwPhlUA4aTbbZNs0l%7WNKtaMsplm9uvjg%4Fw9XPb5 izHsbT6tDuHKmseVh0SsPVPoPcgCQU9oCmZEzzd61i4485VL0DeTuoEH4tpVtHkgTiX Not Available [employer] , [address] , [place] , [address], , 02/16/2025 09:50:24 02/16/2025 02/16/2025 knee 4 view [email or web address]=xdZnYdoIC2mLdaWMb4l%2UGOuqMacig1jgwl%3Kn6FQp7 taJweW9jSyDFkpmXi8UsHURvGzwSSW5wOjRRgsx22j0953FJ1RwYwcID2wvYrUdeVrR Not Available [facility] [place] [facility] , [address] , [place] , [address], , 02/16/2025 09:50:25 Result Notes Documentation Provider Name and Address Organization Details Recorded Time Xr, Knee, 4 Or More View : [email or web address] Encrypted=diZiBjmWU7gCsuD Uv6g%5GVCbcGvlxr0jqag%2Fg 2UDy9atQtbI5cFuJWbtiMr6Ie BGVzHqmWNY1xWkADphv56z956 7WV7FiIviTD4mzLlVykFgY Not Available [facility] 02/16/2025 09:50: 24 Xr, Knee, 4 Or More View : [email or web address] Encrypted=ejDyQgcRM3qKymW Uv6g%7PTEqeChdot9hrzd%2Fg 1VWw9gmTorN9cMzPLcxpNk8Oq BOUnUquYZT2sAmIBibt15o786 6MM0UgNfbRG6rlTvZsmVyO Not Available [facility] 02/16/2025 09:50: 25 Problems Name Problem SNOMED Code Status Onset Date Resolution Date Notes Provider Name and Address Organization Details Recorded Time Pain of bilateral knee regions [id number] 2 Active 2024 [facility] 09:39:45 Problem Notes None recorded. Procedures Surgical History Date Name Laterality Status Provider Name and Address Organization Details Recorded Time 02/16/2025 JZKNEE INJ Frankie completed Chi Fierro PA-C [address] [facility], [place], [address], [facility] 02/15/2025 19:44:52 10/30/2024 JZKNEE INJ Frankie completed Chi Fierro PA-C [address] [facility], [place], [address], [facility] 10/29/2024 14:59:39 06/16/2024 JZKNEE INJ Frankie completed Chi Fierro PA-C [address], [place], [address], [facility] 06/16/2024 08:05:41 06/09/2024 JZKNEE INJ Frankie cancelled Chi Fierro PA-C [address] [facility], [place], [address], [facility] 06/09/2024 12:48:39 03/06/2024 JZKNEE INJ Frankie completed Chi Fierro PA-C [address] [facility], [place], [address], [facility] 03/05/2024 14:36:22 12/04/2023 JZKNEE INJ Frankie completed Chi Fierro PA-C [address] [facility], [place], [address], [facility] 12/04/2023 08:17:20 09/06/2023 Sports Knee 4&1 completed Chi Fierro PA-C [address] [facility], [place], [address], [facility] 09/06/2023 12:35:54 Imaging Results Imaging Date Name Status LastModifiedBy Organiza tion Detail LastModifiedTime 02/16/2025 knee 4 view completed Not Available [facility] , [address] [facility] , [place] , [address], , 02/16/2025 09:50:24 02/16/2025 knee 4 view completed Not Available [address] [address] [facility] , [address] , [place] , [address], , 02/16/2025 09:50:25 Procedure Notes None recorded. Medical Equipment None Reported. Allergies No known drug allergies Medications Name Authored On Sig Start Date Stop Date Status Note Indication Fill Status Repeat Number Dispense Quantity LastModified by Organization Details LastModified Time ibupr ofen 800 mg table t 14:41:21 TAKE 1 TABL ET BY MOUT H THRE E TIME S RACQUEL Y active Not Available Not availab le 0 Not Available Not Available [facility] 07/11/2023 14:41:21 fluti sebastian e propi donna 50 mcg/a ctuat ion nasal spray ,susp ensio n 4 14:41:21 INHA LE ONE OR TWO SPRA YS IN EACH NOST RIL RACQUEL Y NEED ED 07/10 aborted Not Available Not availab le 0 Not Available [facility] 07/11/2023 15:00:54 penic illin V potas sium 500 mg table t 4 14:41:21 TAKE 2 TABL ETS BY MOUT H FIRS T TIME THEN 1 TABL ET BY MOUT H EVER Y 6 HOUR S UNTI L FINI SHED 07/10 aborted Not Available Not availab le 0 Not Available [facility] 07/11/2023 15:01:44 predn isolo ne aceta te 1 % eye drops ,susp ensio n 4 14:41:21 inst ill 1 drop in Surg ical eye FOUR time s a day for 4 days ; Bruzma mcarthur le UNOP ENED to hoSp ital on day of proc edur e 07/10 aborted Not Available Not availab le 0 Not Available [facility] 07/11/2023 15:02:08 albut teresa sulfa te HFA 90 mcg/a ctuat ion aeros ol inhal er 5 05:52:25 INHA LE TWO PUFF S EVER Y 6 HOUR S NEED ED FOR WHEE ZING active Not Available Not availab le 0 Not Available Not Available [facility] 06/09/2024 05:52:25 amoxi cilli n 875 mg-po tassi um clavu lanat e 125 mg table t 5 05:52:25 TAKE 1 TABL ET BY MOUT H TWIC E RACQUEL Y FOR 7 DAYS active Not Available Not availab le 0 Not Available Not Available [facility] 06/09/2024 05:52:25 azith romyc in 250 mg table t 5 05:52:25 TAKE 2 TABL ETS BY MOUT H ON DAY 1, THEN TAKE 1 TABL ET RACQUEL Y ON DAYS 2-5 active Not Available Not availab le 0 Not Available Not Available [facility] 06/09/2024 05:52:25 bisac odyl 5 mg table t,del ayed relea se 5 05:52:25 STAR T taki ng TWO tabl et EVER Y NIGH T AT BEDT SILVER KRYSTAL N DAYS BEFO RE THE PROC EDUR E AND ONE DAY BEFO RE PROC EDUR E take FOUR tabl ets AT NOON TIME foll owed by Ekaterina Lax prep active Not Available Not availab le 0 Not Available Not Available [facility] 06/09/2024 05:52:25 cepha lexin 500 mg capsu le 5 11:17:14 TAKE ONE CAPS ULE TWIC E RACQUEL Y FOR 5 DAYS active Not Available Not availab le 0 Not Available Not Available [facility] - [employer] - prod 10/27/2024 11:17:14 Lantu s Solos tar U-100 Insul in 100 unit/ mL (3 mL) subcu taneo us pen 5 11:17:[address] UNIT S SUBC UTAN EOUS LY AT BEDT SILVER active Not Available Not availab le 0 Not Available Not Available [facility] - [employer] - prod 10/27/2024 11:17:15 aceta minop hen 325 mg table t 5 11:17:17 TAKE 3 TABL ETS BY MOUT H EVER Y 6 HOUR S active Not Available Not availab le 0 Not Available Not Available [facility] - [employer] - prod 10/27/2024 11:17:17 polye thyle ne glyco l 3350 17 gram/ dose oral powde r 5 11:17:17 MIX 17 GRAM IN WATE R AND TAKE BY MOUT H EVER Y DAY active Not Available Not availab le 0 Not Available Not Available [facility] - [employer] - prod 10/27/2024 11:17:17 levof loxac in 750 mg table t 5 11:17:18 TAKE 1 TABL ET BY MOUT H EVER Y 24 HOUR S FOR 11 DAYS active Not Available Not availab le 0 Not Available Not Available [facility] [employer] - prod 10/27/2024 11:17:18 metro nidaz ole 500 mg table t 5 11:17:18 TAKE 1 TABL ET BY MOUT H THRE E TIME S RACQUEL Y FOR 11 DAYS active Not Available Not availab le 0 Not Available Not Available [facility] [employer] - prod 10/27/2024 11:17:18 aspir in 81 mg chewa ble table t 5 10:45:50 CHEW ONE TABL ET EVER Y EVEN ING active Not Available Not availab le 0 Not Available Not Available [facility] [employer] - prod 02/13/2025 10:45:50 saeid calci ferol (arvin min D3) 50 mcg (2,00 0 unit) table t 5 10:45:50 TAKE ONE TABL ET EVER Y EVEN ING active Not Available Not availab le 0 Not Available Not Available [facility] [employer] - prod 02/13/2025 10:45:50 docus ate sodiu m 100 mg capsu le 5 10:45:50 TAKE ONE CAPS ULE EVER Y NIGH T AT BEDT SILVER active Not Available Not availab le 0 Not Available Not Available [facility] - [employer] - prod 02/13/2025 10:45:50 furos emide 20 mg table t 5 10:45:50 TAKE ONE TABL ET EVER Y MORN ING active Not Available Not availab le 0 Not Available Not Available [facility] - [employer] - prod 02/13/2025 10:45:50 gemfi brozi l 600 mg table t 5 10:45:50 TAKE ONE TABL ET IN THE MORN ING AND EVEN ING active Not Available Not availab le 0 Not Available Not Available [facility] - [employer] - prod 02/13/2025 10:45:50 glipi zide 10 mg table t 5 10:45:50 TAKE TWO TABL ETS TWIC E RACQUEL Y IN THE MORN ING AND EVEN ING active Not Available Not availab le 0 Not Available Not Available [facility] - [employer] - prod 02/13/2025 10:45:50 lisin opril 10 mg table t 5 10:45:50 TAKE ONE TABL ET EVER Y EVEN ING active Not Available Not availab le 0 Not Available Not Available [facility] - [employer] - prod 02/13/2025 10:45:50 lorat adine 10 mg table t 10:45:50 TAKE ONE TABL ET EVER Y EVEN ING active Not Available Not availab le 0 Not Available Not Available [facility] - [employer] - prod 02/13/2025 10:45:50 omega -3 acid ethyl amy s 1 gram capsu le 10:45:50 TAKE ONE CAPS ULE IN THE MORN ING AND EVEN ING active Not Available Not availab le 0 Not Available Not Available [facility] - [employer] - prod 02/13/2025 10:45:50 sertr karie 25 mg table t 10:45:51 TAKE ONE TABL ET EVER Y MORN ING active Not Available Not availab le 0 Not Available Not Available [facility] - External [employer] - prod 02/13/2025 10:45:51 triam teren e 37.5 mg-hy droch lorot hiazi de 25 mg capsu le 10:45:51 TAKE ONE CAPS ULE EVER Y MORN ING active Not Available Not availab le 0 Not Available Not Available [facility] - [employer] - prod 02/13/2025 10:45:51 amoxi cilli n 500 mg capsu le 10:45:52 TAKE ONE CAPS ULE BY MOUT H EVER Y 12 HOUR S FOR KRYSTAL N DAYS 02/13 aborted Not Available Not availab le 0 Not Available Not Available [facility] [employer] - prod 02/13/2025 10:45:52 metfo rmin 1,000 mg table t 5 10:45:52 TAKE ONE TABL ET IN THE MORN ING AND EVEN ING active Not Available Not availab le 0 Not Available Not Available [facility] - External Data [employer] - prod 02/13/2025 10:45:52 Accu- Chek Guide Me Gluco se Meter 10:45:49 TEST BLOO D SUGA R TWIC E RACQUEL Y 02/16 aborted Not Available Not availab le 0 Not Available [facility] [place] [facility] 02/16/2025 09:38:21 Accu- Chek Guide test strip s 10/24/202 5 10:45:49 TEST BLOO D SUGA R TWIC E RACQUEL Y 02/16 aborted Not Available Not availab le 0 Not Available [facility] 02/16/2025 09:38:24 Accu- Chek Softc lix Tyler ts 10:45:49 TEST BLOO D SUGA R TWIC E RACQUEL Y 02/16 aborted Not Available Not availab le 0 Not Available [facility] 02/16/2025 09:38:26 rosuv astat in 10 mg table t 10:45:53 TAKE ONE TABL ET EVER Y EVEN ING 02/16 aborted Not Available Not availab le 0 Not Available [facility] 02/16/2025 09:38:44 rosuv astat in 20 mg table t 10:45:50 TAKE ONE TABL ET EVER Y EVEN ING 02/16 aborted Not Available Not availab le 0 Not Available [facility] 02/16/2025 09:38:48 UltiC are Pen Needl e 31 gauge x 09/05 5 11:17:16 USE ONE RACQUEL Y 02/16 aborted Not Available Not availab le 0 Not Available [facility] 02/16/2025 09:38:52 sodiu m fluor efrain 1.1 % denta l gel 4 14:41:21 APPL Y THIN FILM TO ALL TEET H BEFO RE BEDT SILVER NOTH ING BY MOUT H FOR 30 AMY TANIA 02/16 aborted Not Available Not availab le 0 Not Available [facility] 02/16/2025 09:38:58 Alcoh ol Prep Pads 10:45:51 USE FIVE TIME S RACQUEL Y 02/16 aborted Not Available Not availab le 0 Not Available [facility] 02/16/2025 09:39:17 oxyco done 5 mg table t 10:45:52 Take 1 tabl et (5 mg) by mout h ever y 6 (six ) hour s if need ed for krsytal re pain for up to 5 days . 02/16 aborted Not Available Not availab le 0 Not Available [facility] 02/16/2025 09:40:58 Vitals Date Recorded Body height Body mass index (BMI) Body weight Provider Name and Address Organization Details Last Updated DateTime 02/16/2025 154.94 cm 37 kg/m2 20234.1 g [facility]IA [facility] 02/16/2025 09:37:43 Social History Question Answer Notes LastModified by Organizat ion Details LastModified Time Tobacco Smoking Status Never Smoker [facility] 07/11/2023 15:03:03 What Is Your Level Of Alcohol Consumption? None [facility] 07/11/2023 15:03:03 What is your relationship status? Single KAYLND [facility] 07/11/2023 15:03:22 Social History Observation Description Date Observed Sex Unknown 02/16/2025 Legal Sex Female Status Not (finding) 04/15/20 25 No social history survey screeners recorded No social history SDOH screeners recorded Functional Status Question Answer Note LastModified by Organizat ion Details LastModified Time Do you or have you ever used any other forms of tobacco or nicotine? No [facility] 07/11/2023 15:03:03 What is your level of alcohol consumption? None [facility] 07/11/2023 15:03:03 Do you use any illicit or recreational drugs? No [facility]IA [facility] 07/11/2023 15:03:03 No Functional Screening assessment recorded No Functional SDOH screeners recorded Mental Status None recorded. No Mental Screening assessment recorded No Mental SDOH screeners recorded Family History Nothing Reported. Medical History Condition Response Allergies/Hayfever Y Coronary Artery Disease N Anxiety/Depression Y Breathing or lung disorders N Emphysema N Nerve Disorders N Thyroid Problems N COPD N Pacemaker N Anemia N Kidney/Bladder Problems N Vascular Disease N Heart Attack ([place]) N Gastrointestinal Disease N Cholesterol Y Diabetes [...] ICD10 Code Diagnosis IMO Codes Diagnosis Note [id number] JAIME Parikh [address] [facility] [place] [address] 02/16/2025 09:20:34 02/25/2025 12:37:32 Primary gonarthrosis, bilateral 963160894 M17.0 [id number] Pain of bi lateral knee regions 1234802553 54412 M25.561 M25.562 [id number] Health Concerns Section Related Observation LastModified by Organization Detai ls LastModified Time None Recorded Concern Status LastModified by Organization Details LastModified Time None Recorded SDOH Concern Status LastModified by Organization Detai ls LastModified Time None Recorded Payers Encounter Date Sequence Insurance Name Policy Number Policy Collado Covered Member ID Collado Member ID Guarantor Name 02/16/2025 1 [facility] (MEDICARE REPLACEMENT/A DVANTAGE - HMO) Yuliet Underwood [id number] Yuliet Underwood Care Team Name Role Member ID Specialty Address Phone None Recorded. OBGyn Episode No OBEpisode recorded.
--- OUTSIDE RECORDS SUMMARY | 2025-04-15 10:37 | XMS_ITS | Encounter Summary ---
Author Organization [employer] Address [address] [place] [address] Care Team Providers Care Survey Worker Name Role Phone Qamar Mittal CNP Primary Care Provider [phone] Reason for Visit * Reason Comments Med Refill Encounter Details Date Type Department Care Team ([facility] Contact Info) Description 03/12/2024 Refill [facility]S [address] [place], [place] [phone] Daiana Trevino MD [address] [place] [address] Type 2 diabetes mellitus without complication, without long-term current use of insulin ([facility]) Social History Tobacco Use Types [...] Description 06/11/2025 2:30 PM EST Office Visit [facility]S [address] [place] [address] Qamar Mittal CNP [address] [place] [address] documented as of this encounter Visit Diagnoses Diagnosis Type 2 diabetes mellitus without complication, without long-term current use of insulin (HCC) documented in this encounter Additional Health Concerns Assessment Noted Time PHQ-9 Depression Total Score: 5 06/20/19 9:37 AM EST documented as of this encounter Care Teams Survey Worker Relationship Specialty Start Date End Date Qamar Mittal CNP [address] [place] [address] PCP - General Family Medicine 02/04/25 documented as of this encounter
--- OUTSIDE RECORDS SUMMARY | 2025-04-15 10:37 | XMS_ITS | Encounter Summary ---
Author Organization [employer] Address [address] [facility] [address] [place] [address] Care Team Providers Care Formula Weigher Name Role Phone Qamar Mittal CNP Primary Care Provider [phone] Reason for Visit * Reason Onset Date Comments Med Refill 04/14/2025 Encounter Details Date Type Department Care Team ([facility] Contact Info) Description 04/14/2025 Telephone [facility] MED & PEDS [address] [place], [place] [phone] Qamar Mittal CNP [address] [place], [place] [phone] Med Refill Social History Tobacco Use Types [...] encounter Miscellaneous Notes * Telephone Encounter - Julio Del Valle - 04/14/2025 2:22 PM EST Pt requesting the following med refill: metaformin documented in this encounter Plan of Treatment Upcoming Encounters Date Type Department Care Team (Late st Contact Info) Description 06/11/2025 2:30 PM EST Office Visit [facility]S [address] [place] [address] Qamar Mittal, THREAD GRINDER [address] [place] [address] documented as of this encounter Goals Goal [...] Plan Weekly blood pressure task No Leena [place], [place] Weekly blood pressure task Care Plan Weekly blood pressure task No Leena [place], [place] Patient has chronic kidney disease Care Plan Patient has chronic kidney disease No Leena [place], [place] Patient has chronic kidney disease Care Plan Patient has chronic kidney disease No Leena [place], [place] Weekly blood pressure task Care Plan Weekly blood pressure task No [place], [place] Weekly blood pressure task Care Plan Weekly blood pressure task No Leena [place], [place] Patient has chronic kidney disease Care Plan Patient has chronic kidney disease No Leena [place], [place] Patient has chronic kidney disease Care Plan Patient has chronic kidney disease No Leena [place], [place] Weekly blood pressure task Care Plan Weekly blood pressure task No Dewayne Hernandez Weekly blood pressure task Care Plan Weekly blood pressure task No Carcorinnellmichael iago, Dewayne Patient has chronic kidney disease Care Plan [...] Del Valle documented as of this encounter Visit Diagnoses [...] documented as of this encounter Care Teams Formula Weigher Relationship Specialty Start Date End Date Qamar Mittal CNP [address] [place] [address] PCP - General Family Medicine 02/04/25 documented as of this encounter
--- OUTSIDE RECORDS SUMMARY | 2025-04-15 10:37 | XMS_ITS | Clinical Summary ---
Author Organization [employer] Address [address] [place] [address] 7[address] [place] [address] Care Team Providers Care Chopper Operator Name Role Phone Qamar Mittal CNP Primary Care Provider [phone] Allergies Active Allergy Reactions Criticality Noted Date Comments Statins High 03/10/2025 Other Reaction(s): SEVERE DIARRHEA Medications fluticasone (Flonase) 50 MCG/ACT nasal spray INHALE ONE OR TWO SPRAYS IN EACH NOSTRIL DAILY NEEDED 16 g 3 023 Active insulin pen needle (UltiCare Short Pen Lorida) 31G X 8 mm miscIndicatio ns:Type 2 [...] with long-term current use of insulin ([facility]) USE TO TEST BLOOD SUGAR ONCE A DAY 1 kit Active Alcohol Swabs (Alcohol Prep) 70 % pads USE FIVE TIMES DAILY 100 each 11 Active glucose blood (Accu-Chek Guide Test) test stripIndicati ons:Type 2 diabetes mellitus without complication, with long-term current use of insulin ([facility]) Check sugars twice daily 100 each 11 025 2025 Active Blood Glucose Monitoring Suppl (Accu-Chek Guide) w/Device kitIndication s:Type 2 diabetes mellitus without complication, with long-term current use of insulin ([facility]) Check sugars twice daily 1 kit 3 Active Accu-Chek Softclix Lancets lancetsIndica tions:Type 2 diabetes mellitus without complication, with long-term current use of insulin ([facility]) Use as instructed 100 each 12 025 2025 Active triamterene-h ydroCHLOROthi azide (Dyazide) 37.5-25 MG capsule TAKE ONE CAPSULE EVERY MORNING 30 capsule 11 Active sertraline (Zoloft) 25 MG tablet TAKE ONE TABLET EVERY MORNING 30 tablet 3 Active Tirzepatide (Mounjaro) 2.5 MG/0.5ML solution auto-injector Indications:T ype 2 diabetes mellitus without complication, with long-term current use of insulin ([facility]) Inject 2.5 mg under the skin 1 (one) time per week. 2 mL Active dapagliflozin (Farxiga) 10 MGIndications :Type 2 diabetes mellitus without complication, with long-term current use of insulin ([facility]),Stage 4 chronic kidney disease (CMS/HCC) ([facility]) Take 1 tablet (10 [...] complication, without long-term current use of insulin ([facility]) INJECT 35 UNITS SUBCUTANEOUSLY EVERY NIGHT AT BEDTIME 15 mL 5 3:06 PM EST Active gemfibrozil (Lopid) 600 MG tablet Take 600 mg by mouth. Active tiZANidine (Zanaflex) 4 MG tabletIndicat ions:Type 2 diabetes mellitus without complication, with long-term current use of insulin ([facility]) Take 1 tablet (4 mg) by mouth every 8 (eight) hours if needed for muscle spasms. 30 tablet 5 2:59 PM EST 2024 Active Tirzepatide (Mounjaro) 2.5 MG/0.5ML solution auto-injector Indications:T ype 2 diabetes mellitus without complication, with long-term current use of insulin ([facility]) Inject 2.5 mg under the skin 1 (one) time per week. 2 mL 3 5 2:31 PM EST Active loratadine (Claritin) 10 MG tablet TAKE ONE TABLET EVERY EVENING 30 tablet 5 025 2024 Discontinued insulin glargine (Lantus SoloStar) 100 UNIT/ML penIndication s:Type 2 diabetes mellitus without complication, without long-term current use of insulin ([facility]) INJECT 35 UNITS SUBCUTANEOUSLY [...] Encounters Date Type Department Care Team Description 04/14/2025 Telephone [facility] [address] [place] [address] Qamar Mittal CNP Med Refill 04/14/2025 Refill [facility] MEDICINE [address] [place] [address] Qamar Mittal CNP 04/10/2025 2:00 PM EST Office Visit [facility] [address] [place] [address] Qamar Mittal CNP Type 2 diabetes mellitus without complication, with long-term current use of insulin (HCC) (Primary Dx); Erosive gastritis; Dizziness 04/10/2025 Travel 04/08/2025 Telephone [facility] [address] [place] [address] Qamar Mittal CNP chart prep 04/01/2025 Refill [facility] [address] [place] [address] Kim Patterson MD Type 2 diabetes mellitus without complication, without long-term current use of insulin (HCC) 03/25/2025 Patient Outreach [facility] MED[facility]INE [address] [place] [address] Qamar Mittal CNP Transition Of Care (Tcm) (HDF scheduled and SDOH screening completed on 10/15/24 ) 03/25/2025 Telephone [facility] MEDICINE [address] [place] [address] Rose Gomez, SergioD 03/23/2025 3:00 PM EST Office Visit [facility] ADULT DENTAL [address] [place] [address] Luis Miguel Delatorre DMD Denture irritation (Primary Dx) 03/20/2025 Refill [facility] [address] [place] [address] Daiana Trevino MD 03/10/2025 Orders Only GENERIC EXTERNAL DATA DEPARTMENT Provider, Generic External Data 03/09/2025 3:00 PM EST Office Visit [facility] [address] [place] [address] Luis Miguel Delatorre, JEFERSON Denture irritation (Primary Dx) 03/05/2025 Orders Only [facility] External Provider, [facility] 02/26/2025 2:00 PM EST Office Visit [facility] ADULT [facility]ENT[facility] [address] [place] [address] Luis Miguel Delatorre DMD Partial edentulism, unspecified edentulism class (Primary Dx); Periodontal disease 02/19/2025 1:00 PM EDT Office Visit [facility] [address] [place] [address] Qamar Mittal CNP Stage 4 chronic kidney disease (CMS/HCC) (HCC) (Primary Dx); Type 2 diabetes mellitus without complication, with long-term current use of insulin (HCC); Encounter for vaccination; Anxiety 02/19/2025 Travel 02/17/2025 Refill [facility] [address] [place] [address] Daiana Trevino MD 02/11/2025 1:00 PM EDT Office Visit [facility] ADULT DENT[facility] [address] [place] [address] Luis Miguel Delatorre, DMD Partial edentulism, unspecified edentulism class (Primary Dx) 02/11/2025 Patient Outreach [facility] MED[facility] [address] [place] [address] Qamar Mittal CNP Pre-visit Planning (SDOH screening completed on 10/15/24) 02/10/2025 Travel 02/07/2025 Refill [facility] [address] [place] [address] Daiana Trevino MD 02/04/2025 5:40 PM EDT Office Visit [facility] WALK[facility]IN [facility]ENTER [address] [place] [address] Selena Rhoades NP Muscle pain (Primary Dx); Hypertriglyceridemi a 02/04/2025 Telephone [facility] [address] [place] [address] Qamar Mittal CNP ICD-10 CODE 02/04/2025 Travel 02/04/2025 Telephone [facility] [address] [place] [address] Whitney Mina MA Chart Prep 02/03/2025 Telephone [facility] [address] [place] [address] Daiana Trevino MD 01/27/2025 2:00 PM EDT Office Visit [facility] ADULT DENT[facility] [address] [place] [address] Luis Miguel Delatorre, DMD Partial edentulism, unspecified edentulism class (Primary Dx) 01/23/2025 Refill [facility] [address] [place] [address] Daiana Trevino MD 01/21/2025 Refill [facility] MEDICINE [address] [place] [address] Daiana Trevino MD Type 2 diabetes mellitus without complication, with long-term current use of insulin (HCC) from Last 3 Months Immunizations Immunization Administration [...] Description 06/11/2025 2:30 PM EST Office Visit [facility] CHC MED & PEDS [address] [place] [address] [place], [facility] [address] [place] [address] Health Maintenance Due Date Last Done Comments [...] Patient has chronic kidney disease No Ney Sternha [place] Patient has chronic kidney disease Care Plan Patient has chronic kidney disease No Ney SternhaKATHYA Weekly blood pressure task Care Plan Weekly blood pressure task No Ney SternhaKATHYA Weekly blood pressure task Care Plan Weekly blood pressure task No Ney Sternha SC Patient has chronic kidney disease Care Plan Patient has chronic kidney disease No Roselyn Stern [place] Patient has chronic kidney disease Care Plan Patient has chronic kidney disease No Roselyn Stern [place] Weekly blood pressure task Care Plan Weekly blood pressure task No Dewayne Hernandez Weekly blood pressure task Care Plan Weekly blood pressure task No ZacabaDewayne lozano Patient has chronic kidney disease Care Plan [...] chronic kidney disease No Julio Del Valle Procedures Procedure Name Priority Date/Time Associated Diagnosis Comments POCT GLUCOSE (CPT-61629) Routine 04/10/2025 2:05 PM EST Type 2 diabetes mellitus without complication, with long-term current use of insulin (HCC) DENTURE FOLLOWUP Routine 03/23/2025 3:00 PM EST [...] 2:00 PM EST Periodontal disease POCT GLUCOSE (CPT-40183) Routine 02/19/2025 2:04 PM EDT Type 2 [...] with long-term current use of insulin ([facility]) Primary hypertension Hypercholesterolemi a LIPID PANEL, STANDARD [...] complication, with long-term current use of insulin ([facility]) PANORAMIC RADIOGRAPHIC IMAGE Routine 07/09/2024 3:00 PM EDT Periodontal disease Dental caries from Last 3 Months or Most Recently Relevant to Health Maintenance Results * (ABNORMAL) POCT glucose manually resulted (04/10/2025 2:05 PM EST) Only the most recent of2 resultswithin the time period is included. Glucose Blood, POC 200 60 - 200 mg/dL QC Media Lot # Comment:[id number] Lot# Expiration Date Comment:07/28/2025 Blood Capillary blood specimen / Unknown 04/10/2025 2:05 PM EST [facility] POINT OF CARE TEST ENTER/ EDIT ORDERABLES Final Result * (ABNORMAL) Glucose, Whole Blood (03/10/2025 4:26 PM EST) Only the most recent of2 resultswithin the time period is included. Glucose, Whole Blood 127(H) 60 - 115 mg/dL [facility] Comment:METER #: [id number] 03/10/2025 4:26 PM EST 03/10/2025 5:37 PM EST Generic External Data Provider LAB BLOOD ORDERAB LES Final Result [facility] [address] [place] [phone] * CT Abdomen Pelvis w/o Contrast (03/10/2025 4:09 PM EST) Anatomical Region Laterality Modality Body, Pelvis, Abdomen Computed T omography 03/10/2025 4:09 PM EST Narrative 03/10/2025 4:47 PM EST [address] [address] [address] Scan Report Signed Patient: Yuliet Underwood MR#: [id number] 992 : 1945 Acct:[id number] Age/Sex: 79 / F ADM Date: 03/10/25 Loc: HO.ED Attending Dr: Ordering Physician: Juana Dougherty Date of Service: 03/10/25 Procedure(s): CT abdomen pelvis wo IV con Accession Number(s): [id number] cc: Juana Dougherty; Daiana Trevino MD Report Number: [id number]: Total DLP = 733.00 mGy-cm Reason for [...] by: Hunter Lazo MD 03/10/2025 04:44 PM [facility] Dictated By: Hunter Lazo MD Signed By: <Electronically signed by Hunter Lazo MD in OV> 03/10/25 1644 DD/ 1609 TD/TT: 03/10/25 1621 Rn Clinical: Procedure Note Donotuseinterpreter, Image - 03/10/[address] [address] [address] Scan Report Signed Patient: Everton Underwood#: [id number] : 6Acct:[id number] Age/Sex: 79 / FADM Date: 03/10/25 Loc: HO.ED Attending Dr: Ordering Physician: Juana Dougherty Date of Service: 03/10/25 Procedure(s): CT abdomen pelvis wo IV con Accession Number(s): [id number] cc: Juana Dougherty; Daiana Trevino MD Report Number: [id number]: Total DLP = 733.00 mGy-cm Reason for [...] 03/10/25 1644 DD/ 1609 TD/TT: 03/10/25 1621 Rn Clinical: [facility] External Provider IMG CT PROCEDURES Final Result * US Pelvis Transvaginal (03/05/2025 1:15 PM EST) Anatomical Region Laterality Modality Pelvis Ultrasound 03/05/2025 1:15 PM EST Narrative 03/05/2025 2:09 PM EST [address] [address] Ultrasound Report Signed Patient: Yuliet Underwood MR#: [id number] 992 : 1945 Acct:[id number] Age/Sex: 79 / F ADM Date: 03/05/25 Loc: HO.US Attending Dr: Clint Damon MD Ordering Physician: Clint Damon MD Date of Service: 03/05/25 Procedure(s): US pelvic and transvaginal Accession Number(s): [id number] cc: Daiana Trevino MD; Clint Damon MD [...] Dov De Guzman MD 03/05/2025 02:06 PM [facility] Dictated By: Dov Munoz MD Signed By: <Electronically signed by Dov Brown MD in OV> 03/05/25 1406 DD/ 1315 TD/TT: 03/05/25 1332 Rn Clinical: Procedure Note Donotuseinterpreter, Image - 03/05/[address] [address] Ultrasound Report Signed Patient: Everton Underwood#: [id number] : 6Acct:[id number] Age/Sex: 79 / FADM Date: 03/05/25 Loc: HO.US Attending Dr: Clint Damon MD Ordering Physician: Clint Damon MD Date of Service: 03/05/25 Procedure(s): US pelvic and transvaginal Accession Number(s): [id number] cc: Daiana Trevino MD; Clint Damon MD [...] 03/05/25 1406 DD/ 1315 TD/TT: 03/05/25 1332 Rn Clinical: us [facility] External Provider IMG US PROCEDURES Final Result * (ABNORMAL) POCT A1c (02/19/2025 2:03 PM EDT) Hemoglobin A1C 8.3(A) 4.0 - 5.7 % QC Media Lot # Comment:[id number] Lot# Expiration Date Comment:08/14/2026 Blood 02/19/2025 2:03 PM EDT Qamar Mittal [facility] POINT OF CARE TEST ENTER/ EDIT ORDERABLES Final Result * (ABNORMAL) Hemoglobin A1c (02/06/2025 10:20 AM EDT) Hemoglobin A1c 8.6(H) <6.0 % [facility] Comment:Hemoglobin A1C Refer ence Range Adults: 4.8 - 6.0 % Non diabetic: < 6.0 % Goal: < 7.0 %Additional Action Suggested: > 8.0 %Note: Hemoglobin A1c results are invalid for patients with abnormal amounts of HbF. Blood transfusions may impact the HbA1c concentration in the patient sample. Estimated Average Glucose 200 mg/dL [facility] Comment:eAG = Estimated ave rage glucose which is %A1C expressed asaverage glucose, using the formula of the S5M-BwitmpiTornott Glucose study (ADAG), Diabetes Care, Vol.31,#8,Nov. 2007 Blood Venous blood specimen / Unknown 02/06/2025 10:20 AM EDT 02/06/2025 2:38 PM EDT Daiana Trevino MD LAB BLOOD ORDERABLES Final Resul t [facility] [address] [place] [phone] * Hepatic Function Panel (02/06/2025 10:20 AM EDT) Bilirubin, Total 0.2 0.0 - 1.0 mg/dL [facility] Bilirubin, Direct <0.2 0.0 - 0.5 mg/dL [facility] Aspartate Amino Transferase 29 5 - 31 U/L [facility] Alanine Aminotransferase 11 0 - 31 U/L [facility] Total Protein 7.1 6.5 - 8.0 g/dL [facility] Albumin Level 4.6 3.5 - 5.0 g/dL [facility] Alkaline Phosphatase 48 39 - 117 U/L [facility] Blood Venous blood specimen / Unknown 02/06/2025 10:20 AM EDT 02/06/2025 2:38 PM EDT Daiana Trevino MD LAB BLOOD ORDERABLES Final Resul t Performing Organization Address [facility] Co de Phone Number [facility] [address] [place] [phone] * (ABNORMAL) Lipid Panel, Standard (02/06/2025 10:20 AM EDT) Triglycerides 430(H) <150 mg/dL [facility] Comment:Slight Lipemia.Jenna able Triglyceride: less than 150 mg/dLBorderline High Triglyceride 150-199 mg/dLHigh Triglyceride: 200-499 mg/dLVery High Triglyceride: greater than or equal to 5OO mg/dL Cholesterol 152 <200 mg/dL [facility] Comment:Desirable Cholestero l: less than 200 mg/dLBorderline High Cholesterol: 200-239 mg/dLHigh Cholesterol: greater than 239 mg/dL LDL Cholesterol Calculated TNP <100 mg/dL [facility] Comment:Unable to calculate the LDL. The formula of Friedwald,Degroot, and Gemma is only valid if the triglycerides areless than 400 mg/dl. HDL Cholesterol 27(L) >40 mg/dL [facility] Comment:Desirable HDL: great er than 40 mg/dL Note: This HDL assay may give artificially low results in patients with liver disease. Blood Venous blood specimen / Unknown 02/06/2025 10:20 AM EDT 02/06/2025 2:38 PM EDT Daiana Trevino MD LAB BLOOD ORDERABLES Final Resul t Performing Organization Address [facility]/ZIP Co de Phone Number [facility] [address] [place] [phone] * (ABNORMAL) Basic Metabolic Panel (02/06/2025 10:20 AM EDT) Sodium 142 135 - 145 mmol/L [facility] Potassium 4.3 3.3 - 5.1 mmol/L [facility] Chloride 105 96 - 108 mmol/L [facility] Carbon Dioxide 24 22 - 29 mmol/L [facility] Anion Gap 17 12 - 20 [facility] Urea Nitrogen (BUN) 49(H) 9 - 16 mg/dL [facility] Creatinine, Serum 1.79(H) 0.5 - 1.4 mg/dL [facility] Estimated Glomerular Filt Rate 27 [facility] Comment:Chronic Kidney Disea se: Estimated GFR < 60 mL/min/[id number] Kidney Disease: Estimated GFR < 15 mL/min/1.73m2 Glucose 152(H) 60 - 115 mg/dL [facility] Calcium 10.5(H) 8.4 - 10.2 mg/dL [facility] Blood Venous blood specimen / Unknown 02/06/2025 10:20 AM EDT 02/06/2025 2:38 PM EDT us Daiana Trevino MD LAB BLOOD ORDERABLES Final Resul t [facility] [address] [place] [phone] [phone] * (ABNORMAL) Albumin, Random Urine W/Creatinine (11/17/2024 10:03 AM EDT) Creatinine, Urine 115.32 mg/dL [facility] Microalbumin Urine 99.0 mg/L [facility] Microalbum Creatinine Ratio Ur 85.8(H) <30 ug/mg cr [facility] Comment:Albumin/Creatinine R atio Reference Ranges: Normal: < 30 ug/mg creatinine Microalbuminuria: 30 - 300 ug/mg creatinineClinical Albuminuria: > 300 ug/mg creatinine 11/17/2024 10:0 3 AM EDT 11/17/2024 2:53 PM EDT us Daiana Trevino MD LAB URINE ORDERABLES Final Resul t [facility] [address] [place] [phone] from Last 3 Months or Most [...] 04/14/2025 Patient has chronic kidney disease 04/14/2025 Insurance [facility] DUAL COMPLETE [facility] Care Teams Chopper Operator Relationship Specialty Start Date End Date Qamar Mittal CNP [address] [place] [address] [place] [address] PCP - General Family Medicine 02/04/25
--- OUTSIDE RECORDS SUMMARY | 2025-04-15 10:37 | XMS_ITS | Encounter Summary ---
Author Organization [employer] Address [address] [facility] [address] [place] [address] Care Team Providers Care Broaching Machine Set Up Operator Name Role Phone Qamar Mittal CNP Primary Care Provider [phone] Reason for Visit * Reason Onset Date Comments Med Refill 04/14/2025 Encounter Details Date Type Department Care Team (Late st Contact Info) Description 04/14/2025 Refill [facility] MEDICINE [address] [place] [address] Qamar Mittal CNP [address] [place], [place] [phone] Social History Tobacco Use Types Packs/Day Years [...] encounter Miscellaneous Notes * Telephone Encounter - Qamar Mittal CNP - 04/14/2025 10:33 AM EST Patient needs to get her blood work done in order to check on renal function before we refill metformin. She was told to have this done at her last OV. Please call pt to remind her to have this completed. If her renal function is stable I will refill, if not we will discontinue * Telephone Encounter - Shannen Kerr LPN - 04/14/2025 10:04 AM EST Medication prescribed from [facility] discharge on 03/14/25 pended if agreeable. Last seen 04/10/25. * Telephone Encounter - Dewayne Raza - 04/14/2025 9:59 AM EST TC from pt requesting medication refill. Medications needing refill : metFORMIN XR (Glucophage-XR) 500 MG 24 hr tablet To be sent to: [facility] [place] [facility] [address] documented in this encounter Plan of Treatment Upcoming Encounters Date Type Department Care Team (Late st Contact Info) Description 06/11/2025 2:30 PM EST Office Visit [facility] CH[facility] MED & PEDS [address] [place] [address] Qamar Mittal CNP [address] [place] [address] documented as of this encounter Goals Goal [...] Plan Patient has chronic kidney disease No Carmelina Minaenia Patient has chronic kidney [...] Plan Patient has chronic kidney disease No GoemzChevyysha Weekly blood pressure task Care Plan Weekly [...] Care Plan Weekly blood pressure task No ArcherEdgar [place] Weekly blood pressure task Care Plan Weekly blood pressure task No ArcherEdgar [place] Patient has chronic kidney disease Care Plan Patient has chronic kidney disease No Leena [place] Patient has chronic kidney disease Care Plan Patient has chronic kidney disease No Leena [place] Weekly blood pressure task Care Plan Weekly blood pressure task No Archer-Jamil [place] Weekly blood pressure task Care Plan Weekly blood pressure task No Leena [place] Patient has chronic kidney disease Care Plan Patient has chronic kidney disease No Leena [place] Patient has chronic kidney disease Care Plan Patient has chronic kidney disease No Leena [place] Weekly blood pressure task Care Plan [...] documented as of this encounter Care Teams Broaching Machine Set Up Operator Relationship Specialty Start Date End Date Qamar Mittal CNP [address] [place] [address] PCP - General Family Medicine 02/04/25 documented as of this encounter
--- OUTSIDE RECORDS SUMMARY | 2025-04-15 10:37 | XMS_ITS | Encounter Summary ---
Author Organization [employer] Address [address] [place] [address] Care Team Providers Care Timber Killer Name Role Phone Qamar Mittal CNP Primary Care Provider [phone] Reason for Visit * Reason Onset Date Comments Med Refill 03/12/2024 Encounter Details Date Type Department Care Team ([facility] Contact Info) Description 03/12/2024 Telephone [facility] MED & PEDS [address] [place], [place] [phone] Daiana Trevino MD [address] [place] [address] Med Refill Social History Tobacco Use Types [...] 100 UNIT/ML pen To be sent to: [facility] [place], [place] - [address] [facility] documented in this encounter Plan of Treatment Upcoming Encounters Date Type Department Care Team ([facility] st Contact Info) Description 06/11/2025 2:30 PM EST Office Visit [facility] MED [facility] [address] [facility] [place] [address] Qamar Mittal CNP [address] [place] [address] documented as of this encounter Visit Diagnoses Not on filedocumented in this encounter Additional Health Concerns Assessment Noted Time PHQ-9 Depression Total Score: 5 06/20/19 24 9:37 AM EST documented as of this encounter Care Teams Timber Killer Relationship Specialty Start Date End Date Qamar Mittal CNP [address] [place] [address] PCP - General Family Medicine 02/04/25 documented as of this encounter
--- OUTSIDE RECORDS SUMMARY | 2025-04-15 10:37 | XMS_ITS | Encounter Summary ---
Author Organization [employer] [facility] Address [address] [place] [address] [address] [place] [address] Care Team Providers Care Hydraulic Pile Hammer Operator Name Role Phone Qamar Mittal CNP Primary Care Provider [phone] Encounter Details Date Type Department Care Team (Late st Contact Info) Description 08/18/[address] [facility] MED & PEDS [address] [place] [address] Melanie Henson LPN Social History Tobacco Use [...] Description 06/11/2025 2:30 PM EST Office Visit [facility] MED & PEDS [address] [place] [address] Qamar Mittal CNP [address] [place] [address] documented as of this encounter Visit Diagnoses Not on filedocumented in this encounter Care Teams Hydraulic Pile Hammer Operator Relationship Specialty Start Date End Date Qamar Mittal CNP [address] [place] [address] PCP - General Family Medicine 02/04/25 documented as of this encounter
--- OUTSIDE RECORDS SUMMARY | 2025-04-15 10:37 | XMS_ITS | Encounter Summary ---
Author Organization [employer] Address [address] 7t [place] [address] Care Team Providers Care Rehab Tech Name Role Phone Qamar Mittal CNP Primary Care Provider [phone] [phone] Reason for Visit * Reason Comments Med Refill Encounter Details Date Type Department Care Team ([facility] Contact Info) Description 03/12/2024 Refill [facility] MED & PEDS [address] [place], [place] [id number] Daiana Trevino MD [address] [place] [address] Social History Tobacco Use Types Packs/Day Years [...] Description 06/11/2025 2:30 PM EST Office Visit [facility] MED [facility] PEDS [address] [place] [address] Qamar Mittal CNP [address] [place] [address] documented as of this encounter Visit Diagnoses Not on filedocumented in this encounter Additional Health Concerns Assessment Noted Time PHQ-9 Depression Total Score: 5 06/20/19 24 9:37 AM EST documented as of this encounter Care Teams Rehab Tech Relationship Specialty Start Date End Date Qamar Mittal CNP [address] [place] [address] PCP - General Family Medicine 02/04/25 documented as of this encounter
--- OUTSIDE RECORDS SUMMARY | 2025-04-15 10:37 | XMS_ITS | Encounter Summary ---
Author Organization [facility] Address [address] [place] [address] 7 [place] [address] Care Team Providers Care Treating And Pumping Supervisor Name Role Phone Qamar Mittal CNP Primary Care Provider [phone] Encounter Details Date Type Department Care Team (Late st Contact Info) Description 02/27/2023 Orders Only [facility] MED & PEDS [address] [place] [address] Shannen Kerr LPN Social History Tobacco Use [...] Description 06/11/2025 2:30 PM EST Office Visit [facility] MED & PEDS [address] [place] [address] Qamar Mittal CNP [address] [place] [address] documented as of this encounter Visit Diagnoses Not on filedocumented in this encounter Care Teams Treating And Pumping Supervisor Relationship Specialty Start Date End Date Qamar Mittal CNP [address] [place] [address] PCP - General Family Medicine 02/04/25 documented as of this encounter
--- OUTSIDE RECORDS SUMMARY | 2025-04-15 10:37 | XMS_ITS | Encounter Summary ---
Author Organization [employer] Address [address] [place] [address] 7 [place] [address] Care Team Providers Care Salesperson Hosiery Name Role Phone Qamar Mittal CNP Primary Care Provider [phone] [phone] Encounter Details Date Type Department Care Team (Latest Contact Info) Description 01/02/2020 Abstract [facility] CONVERSIONS Dental, Provider, DDS Social History [...] Description 06/11/2025 2:30 PM EST Office Visit [facility] CH[facility] MED & PEDS [address] [place] [address] Qamar Mittal CNP [address] [place] [address] documented as of this encounter Visit Diagnoses Not on filedocumented in this encounter Care Teams Salesperson Hosiery Relationship Specialty Start Date End Date Qamar Mittal CNP [address] [place] [address] PCP - General Family Medicine 02/04/25 documented as of this encounter
--- OUTSIDE RECORDS SUMMARY | 2025-04-15 10:37 | XMS_ITS | Data Portability ---
Author Organization [facility], [facility] Address [address] [place] [address] Support Name Relationship Address Phone YULIET ANDREW self [address] [place] [address] Assessment Encounter Date Assessment Date Assessment LastModified [...] of continued conservative management versus surgical management. [email or web address] Not available 12/04/2023 15:12:58 03/06/2024 03/06/2024 I [...] of continued conservative management versus surgical management. [email or web address] Not available 03/05/2024 14:36:30 06/16/2024 06/16/2024 I [...] of continued conservative management versus surgical management. [email or web address] Not available 06/16/2024 12:59:53 10/30/2024 10/30/2024 I [...] of continued conservative management versus surgical management. [email or web address] Not available 10/29/2024 14:59:45 02/16/2025 02/16/2025 I [...] of continued conservative management versus surgical management. [email or web address] Not available 02/15/2025 19:44:57 Plan of Treatment [...] 2024 09:41: 23 025 Chi Fierro PA-C [facility] [address], [place], [address], [facility] 02/25/2025 12:37:32 MedicationOrders None record ed. VaccineOrders None record ed. Patient TargetsNo targets recorded. Patient InstructionsNo instructions recorded. Reason for Referral None Reported. Results Created Date Observation Date Name Description Value Unit Range Abnormal Flag Specimen Type Note LastModifiedBy Organization Detail LastModifiedTime 02/16/2025 02/16/2025 knee 4 view [email or web address]=[email or web address]%4Vz4ZPn0 dkEheT5rTfBEbguTk4SbGXHeSusFQT1oYwYZexn51y5717AX0HlXxpUY0qyBaOlcNrE Not Available [facility] , [address] , [place] , [address], , 02/16/2025 09:50:24 02/16/2025 02/16/2025 knee 4 view [email or web address]=[email or web address]%2ITUgnXktdw9flop%5Jn6GPq6 scNdhR8gQzZZvfvRo0JnARYxUjnKOC9gUrDFfug06z6264YY9TrLhgYB9inVdPqkFzV Not Available [facility] [place] [facility] , [address] [address] , [place] , [address], , 02/16/2025 09:50:25 Result Notes Documentation Provider Name and Address Organization Details Recorded Time Xr, Knee, 4 Or More View : [email or web address] Encrypted=ncZtFizPH2kPseS Uv6g%5POXxkLuqwl9knqh%2Fg 2KAx7moXquD9wVaGUrjtNz6Ms NWIeEczCMM2aJsTRarr92v406 9RY4CaRvoHQ0huTiAkvKlI Not Available [facility] 02/16/2025 09:50: 24 Xr, Knee, 4 Or More View : [email or web address] Encrypted=dmDlYzhED9bBgmY Uv6g%4PMWfeShuqo7mcau%2Fg 7VIo0adGeeT3bVfRMsgfLa3Bj LNDzTgsXFH8jKrMXzcw24m467 6FL6OtRuqFK0fcOtNawDsQ Not Available [facility] 02/16/2025 09:50: 25 Problems Name Problem SNOMED Code Status Onset Date Resolution Date Notes Provider Name and Address Organization Details Recorded Time Pain of bilateral knee regions [id number] 2 Active 2024 ELFEGO benson [place] - [facility] 09:39:45 Problem Notes None recorded. Procedures Surgical History Date Name Laterality Status Provider Name and Address Organization Details Recorded Time 02/16/2025 TONA PECK Frankie completed Chi Fierro PA-C [address], [place], [address], [facility] 02/15/2025 19:44:52 10/30/2024 JZKNEE INJ Frankie completed Chi Fierro PA-C [address] [facility], [place], [address], [facility] 10/29/2024 14:59:39 06/16/2024 JZKNEE INJ Frankie completed Chi Fierro PA-C [address] [facility], [place], [address], [facility] 06/16/2024 08:05:41 06/09/2024 JZKNEE INJ Frankie cancelled Chi Fierro PA-C [address] [facility], [place], [address], [facility] 06/09/2024 12:48:39 03/06/2024 JZKNEE INJ Frankie completed Chi Fierro PA-C [address] [facility], [place], [address], [facility] 03/05/2024 14:36:22 12/04/2023 JZKNEE INJ Frankie completed Chi Fierro PA-C [address] [facility], [place], [address], [facility] 12/04/2023 08:17:20 09/06/2023 Sports Knee 4&1 completed Chi Fierro PA-C [address] [facility], [place], [address], [facility] 09/06/2023 12:35:54 Imaging Results Imaging Date Name Status LastModifiedBy Organiza tion Detail LastModifiedTime 02/16/2025 knee 4 view completed Not Available [facility] , [address] , [place] , [address], , 02/16/2025 09:50:24 02/16/2025 knee 4 view completed Not Available [facility] , [address] , [place] , [address], [place] , 02/16/2025 09:50:25 Procedure Notes None recorded. Medical Equipment None Reported. Allergies No known drug allergies Medications Name Authored On Sig Start Date Stop Date Status Note Indication Fill Status Repeat Number Dispense Quantity LastModified by Organization Details LastModified Time ibupr ofen 800 mg table t 4 14:41:21 TAKE 1 TABL ET BY JUNIOR Perez THRE E TIME S RACQUEL Y active Not Available Not availab le 0 Not Available Not Available [facility] 07/11/2023 14:41:21 fluti sebastian e propi donna 50 mcg/a ctuat ion nasal spray ,susp ensio n 4 14:41:21 INHA LE ONE OR TWO SPRA YS IN EACH NOST RIL RACQUEL Y NEED ED 07/10 aborted Not Available Not availab le 0 Not Available [facility] 07/11/2023 15:00:54 penic illin V potas sium 500 mg table t 4 14:41:21 TAKE 2 TABL ETS BY MODALIA Perez FIRS T TIME THEN 1 TABL ET BY MODALIA H EVER Y 6 HOUR S UNTI L FINI SHED 07/10 aborted Not Available Not availab le 0 Not Available [facility]LIA [facility] 07/11/2023 15:01:44 predn isolo ne aceta te 1 % eye drops ,susp ensio n 4 14:41:21 inst ill 1 drop in Surg ical eye FOUR time s a day for 4 days ; Brin g lyubov le UNOP ENED to hoSp ital on day of proc edur e 07/10 aborted Not Available Not availab le 0 Not Available [facility] 07/11/2023 15:02:08 albut teresa sulfa te HFA 90 mcg/a ctuat ion aeros ol inhal er 5 05:52:25 INHA LE TWO PUFF S EVER Y 6 HOUR S NEED ED FOR WHEE ZING active Not Available Not availab le 0 Not Available Not Available [facility] 06/09/2024 05:52:25 amoxi cilli n 875 mg-po tassi um clavu lanat e 125 mg table t 5 05:52:25 TAKE 1 TABL ET BY MOUT H TWIC E RACQUEL Y FOR 7 DAYS active Not Available Not availab le 0 Not Available Not Available [facility] 06/09/2024 05:52:25 azith romyc in 250 mg table t 5 05:52:25 TAKE 2 TABL ETS BY MOUT H ON DAY 1, THEN TAKE 1 TABL ET RACQUEL Y ON DAYS 2-5 active Not Available Not availab le 0 Not Available Not Available [facility] 06/09/2024 05:52:25 bisac odyl 5 mg table [...] availab le 0 Not Available Not Available [facility] 06/09/2024 05:52:25 cepha lexin 500 mg capsu le 11:17:14 TAKE ONE CAPS ULE TWIC E [...] 10:45:50 glipi zide 10 mg table t 10:45:50 TAKE TWO TABL ETS TWIC E RACQUEL Y IN THE MORN ING AND EVEN ING active Not Available Not availab le 0 Not Available Not Available shane - External Data Service - prod 02/13/2025 10:45:50 lisin opril 10 mg table t 10:45:50 TAKE ONE [...] 10:45:52 metfo rmin 1,000 mg table t 10:45:52 TAKE ONE TABL ET IN THE MORN ING AND EVEN ING active Not Available Not availab le 0 Not Available Not Available shane - External Data Service - prod 02/13/2025 10:45:52 Accu- Chek Guide Me Gluco se Meter 10:45:49 TEST BLOO D SUGA R TWIC E RACQUEL Y 02/16 aborted Not Available Not availab le 0 Not Available [facility]LIA [facility] 02/16/2025 09:38:21 Accu- Chek Guide test strip s 10:45:49 TEST BLOO D SUGA R TWIC E RACQUEL Y 02/16 aborted Not Available Not availab le 0 Not Available KAYLIA [facility] 02/16/2025 09:38:24 Accu- Chek Softc lix Tyler ts 10:45:49 TEST BLOO D SUGA R TWIC E RACQUEL Y 02/16 aborted Not Available Not availab le 0 Not Available KAYLIA [facility] 02/16/2025 09:38:26 rosuv astat in 10 mg table t 10:45:53 TAKE ONE TABL ET EVER Y EVEN ING 02/16 aborted Not Available Not availab le 0 Not Available KAYLIA [facility] 02/16/2025 09:38:44 rosuv astat in 20 mg table t 10:45:50 TAKE ONE TABL ET EVER Y EVEN ING 02/16 aborted Not Available Not availab le 0 Not Available KAYLIA [facility] 02/16/2025 09:38:48 UltiC are Pen Needl e 31 gauge x 09/05 11:17:16 USE ONE RACQUEL Y 02/16 aborted Not Available Not availab le 0 Not Available KAYLIA [facility] 02/16/2025 09:38:52 sodiu m fluor efrain 1.1 % denta l gel 14:41:21 APPL Y THIN FILM TO ALL TEET H BEFO RE BEDT SILVER NOTH ING BY JUNIOR Perez FOR 30 AMY TANIA 02/16 aborted Not Available Not availab le 0 Not Available KAYLIA [facility] 02/16/2025 09:38:58 Alcoh ol Prep Pads 10:45:51 USE FIVE TIME S RACQUEL Y 02/16 aborted Not Available Not availab le 0 Not Available KAYLIA [facility] 02/16/2025 09:39:17 oxyco done 5 mg table t 10:45:52 Take 1 tabl et (5 mg) by junior perez ever y 6 (six ) hour s if need ed for krystal re pain for up to 5 days . 02/16 aborted Not Available Not availab le 0 Not Available KAYLIA [facility] 02/16/2025 09:40:58 Vitals Date Recorded Body height Body mass index (BMI) Body weight Provider Name and Address Organization Details Last Updated DateTime 06/16/2024 154.94 cm 37 kg/m2 49270.1 g KAYLIA L[facility]UREUX [facility] 06/16/2024 12:53:55 Date Recorded Body height Body mass index (BMI) Body weight Provider Name and Address Organization Details Last Updated DateTime 10/30/2024 154.94 cm 37 kg/m2 30015.1 g Shannen Patel [facility] 10/30/2024 10:38:25 Date Recorded Body height Body mass index (BMI) Body weight Provider Name and Address Organization Details Last Updated DateTime 12/04/2023 154.94 cm 37 kg/m2 93728.1 g KAYLIA L[facility]UX [facility] 12/04/2023 15:03:01 Date Recorded Body height Body mass index (BMI) Body weight Provider Name and Address Organization Details Last Updated DateTime 02/16/2025 154.94 cm 37 kg/m2 43564.1 g KAYLIA L[facility]UX [facility] 02/16/2025 09:37:43 Date Recorded Body height Body mass index (BMI) Body weight Provider Name and Address Organization Details Last Updated DateTime 03/06/2024 154.94 cm 37 kg/m2 08249.1 g KAYLIA L'[facility]UREUX [facility] 03/06/2024 15:47:23 Social History Question Answer Notes LastModified by Organizat ion Details LastModified Time Tobacco Smoking Status Never Smoker KAYLIA [facility] 07/11/2023 15:03:03 What Is Your Level Of Alcohol Consumption? None EVANYLIA L'[facility]UREUX [facility] 07/11/2023 15:03:03 What is your relationship status? Single KASWETHA [facility]UX [facility] 07/11/2023 15:03:22 Social History Observation Description Date Observed Sex Unknown 02/11/2025 Legal Sex Female Status Not (finding) 04/15/20 25 No social history survey screeners recorded No social history SDOH screeners recorded Functional Status Question Answer Note LastModified by Organizat ion Details LastModified Time Do you or have you ever used any other forms of tobacco or nicotine? No KAYLIA [facility] 07/11/2023 15:03:03 What is your level of alcohol consumption? None KAYLIA L[facility]UX [facility] 07/11/2023 15:03:03 Do you use any illicit or recreational drugs? No KAYLIA L[facility]UREUX [facility] 07/11/2023 15:03:03 No Functional Screening assessment recorded [...] Anemia N Vascular Disease N Heart Attack ([place]) N Gastrointestinal Disease N Cholesterol Y Diabetes [...] ICD10 Code Diagnosis IMO Codes Diagnosis Note [id number] Chi Fierro PA-C [facility] [address] [place] [address] 07/11/2023 14:38:06 07/12/2023 07:58:16 Bilateral osteoarthritis of knees [id number] 79584 M17.0 [id number] JAIME Par[facility] [address] [place] [address] 09/06/2023 15:40:30 09/27/2023 15:02:46 Bilateral osteoarthritis of knees 7269413015 23310 M17.0 [id number] JAIME Parikhnicelia [address] [place] [address] 12/04/2023 14:49:34 12/28/2023 12:23:49 Bilateral osteoarthritis of knees 9738974947 63419 M17.0 [id number] Chi Fierro PA-C [facility] [address] [place] [address] 03/06/2024 15:41:03 04/07/2024 12:00:28 Primary gonarthrosis, bilateral 646282273 M17.0 4480663 [id number] Chi Fierro PA-C [facility] [address] [place] [address] 06/16/2024 12:48:05 06/30/2024 18:45:02 Primary gonarthrosis, bilateral 956163990 M17.0 [id number] [id number] Chi Fierro PA-C [facility] [address] [place], [place] [address] 10/30/2024 10:32:46 11/10/2024 11:44:55 Primary gonarthrosis, bilateral 610548283 M17.0 [id number] [id number] JAIME Par[facility]ryancelia [address] [place] [address] 02/16/2025 09:20:34 02/25/2025 12:37:32 Primary gonarthrosis, bilateral 764362543 M17.0 [id number] Pain of bi lateral knee regions 4830047298 35570 M25.561 M25.562 [id number] Health Concerns Section Related Observation LastModified by Organization Detai ls LastModified Time None Recorded Concern Status LastModified by Organization Details LastModified Time None Recorded SDOH Concern Status LastModified by Organization Detai ls LastModified Time None Recorded Advance Directives Directive None Recorded Payers Insurance Date Sequence Insurance Name Policy Number Policy Collado Covered Member ID Collado Member ID Guarantor Name 02/25/2025 1 [facility] (MEDICARE REPLACEMENT/A DVANTAGE - HMO) Yuliet Andrew [id number] Yuliet Andrew Care Team Name Role Member ID Specialty Address Phone None Recorded. OBGyn Episode No OBEpisode recorded.
--- OUTSIDE RECORDS SUMMARY | 2025-04-15 10:37 | XMS_ITS | Encounter Summary ---
Author Organization [facility] [facility] Address [address] [facility] 7t [place] [address] Care Team Providers Care Durable Medical Equipment Repairer Name Role Phone Kyrie Taygeorge DEE Primary Care Provider [phone] Reason for Visit * Reason Onset Date Comments Referral 03/21/2023 Encounter Details Date Type Department Care Team ([facility] st Contact Info) Description 03/21/2023 Telephone [facility] MEDICINE [address] [place], [place] [phone] Daiana Trevino MD [address] [place] [address] Referral Social History Tobacco Use Types Packs/Day [...] from patient requesting a new referral for [facility] automobile service writer did call facility and needs a renewal on referral due to previous referral expiring in September the [facility] is documented in this encounter Plan of Treatment Upcoming Encounters Date Type Department Care Team ([facility] st Contact Info) Description 06/11/2025 2:30 PM EST Office Visit [facility] MED & PEDS [address] [place] [address] Qamar Mittal CNP [address] [place] [address] documented as of this encounter Visit Diagnoses Not on filedocumented in this encounter Care Teams Durable Medical Equipment Repairer Relationship Specialty Start Date End Date Qamar Mittal CNP [address] [place] [address] PCP - General Family Medicine 02/04/25 documented as of this encounter
--- OUTSIDE RECORDS SUMMARY | 2025-04-15 10:37 | XMS_ITS | Encounter Summary ---
Author Organization [employer] Address [address] [facility] 7t [place] [address] Care Team Providers Care Fermenter Operator Name Role Phone Kyrie Taykarlenehugo LEILA Primary Care Provider [phone] [phone] Reason for Visit * Reason Onset Date Comments Appointment Request 04/05/2023 Encounter Details Date Type Department Care Team ([facility] Contact Info) Description 04/05/2023 Telephone [facility] MEDICINE [address] [place], [place] [phone] Daiana Trevino MD [address] [place] [address] Appointment Request Social History Tobacco Use Types [...] - 04/05/2023 2:46 PM EST Tc from [place] with [facility] insurance requesting a PE appt for program Please contact pt @ [phone] documented in this encounter Plan of Treatment Upcoming Encounters Date Type Department Care Team (Late Contact Info) Description 06/11/2025 2:30 PM EST Office Visit [facility] MED [facility] PEDS [address] [place] [address] Qamar Mittal CNP [address] [facility] [place] [address] documented as of this encounter Visit Diagnoses Not on filedocumented in this encounter Care Teams Fermenter Operator Relationship Specialty Start Date End Date Qamar Mittal CNP [address] [facility] [place] [address] PCP - General Family Medicine 02/04/25 documented as of this encounter
--- OUTSIDE RECORDS SUMMARY | 2025-04-15 10:37 | XMS_ITS | Encounter Summary ---
Author Organization [facility] Address [address] [place] [address] 7 [place] [address] Care Team Providers Care Certified Procedural Coder Name Role Phone Qamar Mittal CNP Primary Care Provider [phone] [phone] Encounter Details Date Type Department Care Team (Late st Contact Info) Description 12/27/2022 Orders Only [facility] MED & PEDS [address] [place] [address] Shannen Kerr LPN Social History Tobacco Use [...] [facility] MED & PEDS [address] [place] [address] Qamar Mittal CNP [address] [place] [address] documented as of this encounter Visit Diagnoses Not on filedocumented in this encounter Care Teams Certified Procedural Coder Relationship Specialty Start Date End Date Qamar Mittal CNP [address] [place] [address] PCP - General Family Medicine 02/04/25 documented as of this encounter
--- OUTSIDE RECORDS SUMMARY | 2025-04-15 10:37 | XMS_ITS | Encounter Summary ---
Author Organization [employer] Address [address] [facility] 7t [place] [address] Care Team Providers Care Garment Mender Name Role Phone Qamar Mittal CNP Primary Care Provider [phone] Reason for Visit * Reason Onset Date Comments Referral 03/01/2023 Encounter Details Date Type Department Care Team ([facility] st Contact Info) Description 03/01/2023 Telephone [facility] MEDICINE [address] [place] [address] Daiana Trevino MD [address] [place] [address] Referral Social History Tobacco Use Types Packs/Day [...] EST Tc from pt requesting renew on [facility] referral, pt have an appt today at 3:00PM forher Cortizone shot but was advise by office referral is . documented in this encounter Plan of Treatment Upcoming Encounters Date Type Department Care Team (Late st Contact Info) Description 06/11/2025 2:30 PM EST Office Visit [facility] MED [facility] PEDS [address] [place] [address] Qamar Mittal CNP [address] [place] [address] documented as of this encounter Visit Diagnoses Not on filedocumented in this encounter Care Teams Garment Mender Relationship Specialty Start Date End Date Qamar Mittal CNP [address] [place] [address] PCP - General Family Medicine 02/04/25 documented as of this encounter
--- OUTSIDE RECORDS SUMMARY | 2025-04-15 10:37 | XMS_ITS | Encounter Summary ---
Author Organization [email or web address] Address [address] [place] [address] Care Team Providers Care Fiscal Economist Name Role Phone Qamar Mittal CNP Primary Care Provider [phone] Encounter Details Date Type Department Care Team ([facility] Contact Info) Description 03/07/2024 Orders Only [facility] [address] [place], [place] [id number] Daiana Trevino MD [address] [place] [address] Social History Tobacco Use Types Packs/Day Years [...] Description 06/11/2025 2:30 PM EST Office Visit [facility] [address] [place] [address] Qamar Mittal CNP [address] [place] [address] documented as of this encounter Visit Diagnoses Not on filedocumented in this encounter Additional Health Concerns Assessment Noted Time PHQ-9 Depression Total Score: 5 06/20/19 24 9:37 AM EST documented as of this encounter Care Teams Fiscal Economist Relationship Specialty Start Date End Date Qamar Mittal CNP [address] [place] [address] PCP - General Family Medicine 02/04/25 documented as of this encounter
--- OUTSIDE RECORDS SUMMARY | 2025-04-15 10:37 | XMS_ITS | Encounter Summary ---
Author Organization [employer] Address [address] [place] [address] Care Team Providers Care Building Drafting Officer Name Role Phone MittalTaykarlenehugo LEILA Primary Care Provider [phone] Encounter Details Date Type Department Care Team [...] 2:30 PM EST Office Visit [facility] MED & PEDS [address] [place] [address] Qamar Mittal CNP [address] [place] [address] documented as of this encounter Goals Goal [...] documented as of this encounter Care Teams Building Drafting Officer Relationship Specialty Start Date End Date Qamar Mittal CNP [address] [place] [id number] PCP - General Family Medicine 02/04/25 documented as of this encounter
[2025-04-15 15:37] LABS: Anion Gap 15 (12-20); Blood Urea Nitrogen 56 mg/dL (9-16); Calcium 10.8 mg/dL (8.4-10.2); Carbon Dioxide 21 mmol/L (22-29); Chloride 106 mmol/L (96-108); Estimated Glomerular Filt Rate 23; Potassium 4.1 mmol/L (3.3-5.1); Sodium 138 mmol/L (135-145)
== END 2025-04-15 10:31 | disposition home or self-care (01) ==
LOC: HO.CHCLDS 10:30
DX: E11.9 Type 2 diabetes mellitus without complications (principal); Z79.4 Long term (current) use of insulin
CPT/HCPCS: 36415; 80048